=== PATIENT | female | born 1960 | race Two or more races ===

== ENCOUNTER 2025-07-18 08:15 | Inpatient (IN) | payer MEDICARE, MEDICAID, SELFPAY ==
[2025-07-18] VITALS (10 sets, daily range): BP systolic 96–153; BP diastolic 61–83; PULSE 78–127; RESP 16–20; TEMP 36.6–38.7; O2SAT 94–98; BMI 29.2
--- NOTE | 2025-07-18 08:41 | PD.EDRME ---
Rapid Medical Screening Exam E Arrival date/time: 07/18/25 08:15 This is a 65-year-old female that comes into the emergency room with complaints of abdominal pain more so to the right lower quadrant. Patient states abdominal pain has been going on and off for the past 3 months. Patient reports that she has been seen at the clinic. Approximately 2 weeks ago she states she was diagnosed with a UTI and was given antibiotics for this. Patient states that on and off she still continues to have dysuria. Patient denies nausea vomiting diarrhea. Patient does report a fever. I have greeted and performed a focused initial assessment of this patient. Initial appropriate labs ordered at this time. A comprehensive ED assessment and evaluation of the patient and analysis of all test and completion of medical decision making process will be conducted by additional ED provider. Chief Complaint: Abdominal Pain Time Seen by Provider: 07/18/25 08:17 Vital signs: Vital Signs Temperature 99.5 F 07/18/25 08:25 Pulse Rate 110 H 07/18/25 08:25 Respiratory Rate 17 07/18/25 08:25 Blood Pressure 113/73 07/18/25 08:25 Pulse Oximetry (%) 95 07/18/25 08:25 Oxygen Delivery Method Room Air 07/18/25 08:25
[2025-07-18] MEDS: ACETAMINOPHEN 500 MG TABLET 1000 MG PO (08:43)
[2025-07-18 09:07] LABS: Collection Type, Urine Voided
[2025-07-18 09:32] LABS: Albumin, Serum 2.5 gm/dL (3.4-4.8); Albumin/Globulin Ratio 0.8 (1.2-2.2); Alkaline Phosphatase 142 U/L (46-116); Anion Gap 7 (7-16); Aspartate Amino Transferase 16 U/L (0-34); BUN/Creatinine Ratio 12 Ratio (12-20); Bilirubin,Total 0.6 mg/dL (0.3-1.2); Blood Urea Nitrogen 7 mg/dL (9-23); Calcium 7.5 mg/dL (8.3-10.6); Calcium (Corrected) 8.7 mg/dL (8.5-10.1); Carbon Dioxide 25.4 mMol/L (20.0-31.0); Chloride 102 mMol/L (98-107); Creatinine (Component) 0.6 mg/dL (0.6-1.3); Estimated Creatinine Clearance 70.3 mL/min (>60); Globulin 3.3 gm/dL (2.3-3.5); Glucose 103 mg/dL (74-106); Lipase 20 U/L (12-53); Osmolality,Calculated 266 (275-295); Potassium 3.6 mMol/L (3.4-5.1); Sodium 134 mMol/L (136-145); Total Protein 5.8 gm/dL (5.7-8.2); eGFR > 60 See Note
[2025-07-18 09:37] LABS: Basophils # (Auto) 0.1 Thou/mm3 (0.0-0.2); Basophils % (Auto) 1 % (0-2.5); Eosinophils # (Auto) 0.0 Thou/mm3 (0.0-0.5); Eosinophils % (Auto) 0 % (0-10); Hematocrit 30.6 % (36.0-46.0); Hemoglobin 9.9 g/dL (12.0-16.0); Immature Granulocytes Auto 0.25 Thou/mm3 (0.00-0.00); Lymphocytes # (Auto) 2.2 Thou/mm3 (1.0-4.8); Lymphocytes % (Auto) 10 % (10-50); Mean Corpuscular HGB Conc 32.4 g/dl (31.0-37.0); Mean Corpuscular Hemoglobin 27.2 pg (25.0-35.0); Mean Corpuscular Volume 84 fL (80-100); Monocytes # (Auto) 1.8 Thou/mm3 (0.0-0.8); Monocytes % (Auto) 8 % (0-12); Neutrophils # (Auto) 16.9 Thou/mm3 (1.8-7.7); Neutrophils % (Auto) 79 % (37-80); Nucleated Red Blood Cell # 0.00 Thou/mm3 (0.00-0.00); Nucleated Red Blood Cell % 0 /100 WBC (0); Platelet Count 530 Thou/mm3 (140-440); RDW Standard Deviation 50.4 fL (36.4-46.3); Red Blood Count 3.64 Miln/mm3 (4.00-5.20); White Blood Count 21.2 Thou/mm3 (3.6-11.0)
[2025-07-18 09:38] LABS: Alanine Aminotransferase 8 U/L (10-49)
[2025-07-18 10:48] LABS: Bilirubin,Urine Negative (Negative); Blood,Urine Negative (Negative); Color,Urine Yellow (Lt Yel-Yel); Culture Indicated,Urine Contaminated; Glucose, Urine Negative (Negative); Ketones,Urine Negative (Negative); Leukocyte Esterase,Urine Positive (Negative); Nitrite,Urine Negative (Negative); PH,Urine 7.0 (5.0-7.0); Protein,Urine Negative (Neg - Trace); RBC,Urine 5 /hpf (0-3); Specific Gravity,Urine 1.016 (1.001-1.035); Squamous Epithelial Cell,Urine 11 /hpf (0-5); Urobilinogen,Urine Negative mg/dL (0.0-1.0); WBC,Urine 15 /hpf (0-5)
[2025-07-18 11:00] LABS: Clarity,Urine Hazy (Clear/Hazy)
--- NOTE | 2025-07-18 11:02 | XR_ITS ---
Examination: Abdomen sonogram, Limited Date and time of exam: July 18, 2025, 1153 hrs. Indications: Onset right lower abdominal pain today Technique: Real-time smith scale transabdominal sonographic images of the upper abdomen obtained. Findings: Absent gallbladder. Normal common bile duct 0.4 cm. Pancreatic head 2.1 cm Liver 13.8 cm fatty infiltration lobular contour no focal liver lesions. Normal hepatopedal portal venous flow Patent IVC Impression: Absent gallbladder Normal common bile duct Liver normal size no focal liver lesions
--- NOTE | 2025-07-18 11:04 | EKG_ITS ---
[facility] (Formerly [facility]) Test Date: 2025-07-18 Pat Name: WILMAN ALCALA Department: Room: - Gender: Female [employer] Cook: : 1960 Requested By: Karen Gee Order Number: [id number] Reading MD: Karen Gee Measurements Intervals [place] Rate: 80 P: 32 GA: 147 QRS: 33 QRSD: 98 T: 23 QT: 394 QTc: 456 Interpretive Statements SINUS RHYTHM No previous ECG available for comparison /store/S0/[id number]/ecg/[id number].pdf
[2025-07-18] MEDS: cefTRIAXone/D5w 1gm IV premix 1 GM/50 ML BAG IV (11:16)
[2025-07-18 11:24] LABS: Lactate (Lactic Acid) 0.9 mMol/L (0.4-2.0)
--- NOTE | 2025-07-18 11:34 | EDNOTE_ITS ---
ED Abdominal Pain RME/HPI General Chief Complaint: Abdominal Pain Stated complaint: ABD PAIN ON/OFF FOR 2 MONTHS, CONSTANT x 3 DAYS Time seen by provider: 07/18/25 08:17 Arrival date/time: 07/18/25 08:15 Limitations: no limitations RME / HPI RME / HPI narrative: 07/18/25 08:15 This is a 65-year-old female that comes into the emergency room with complaints of abdominal pain more so to the right lower quadrant. Patient states abdominal pain has been going on and off for the past 3 months. Patient reports that she has been seen at the clinic. Approximately 2 weeks ago she states she was diagnosed with a UTI and was given antibiotics for this. Patient states that on and off she still continues to have dysuria. Patient denies nausea vomiting diarrhea. Patient does report a fever. I have greeted and performed a focused initial assessment of this patient. Initial appropriate labs ordered at this time. A comprehensive ED assessment and evaluation of the patient and analysis of all test and completion of medical decision making process will be conducted by additional ED provider. DR. PAOLA OLSEN ED EVALUATION: 65 [id number] presenting with right-sided abdominal pain ongoing for the past three months, which has worsened over the last three days. She reports associated subjective fever and chills but denies vomiting, hematuria, or changes in bowel habits. The patient has a prior section ?1 and is currently awaiting an outpatient endoscopy referral. No other surgeries per the patient. She does not smoke, drink alcohol, or use recreational drugs. A dditionally, she reports a blister on the medial aspect of her left thumb that developed recently. She denies any known medication allergies. Related Data Allergies Allergy/AdvReac Type Severity Reaction Status Date / Time No Known Allergies Allergy Verified 07/18/25 08:18 Review of Systems Review of Systems Systems Reviewed: All systems reviewed, normal except as documented Past Medical History Past Medical History CARDIAC: Positive Hypertension Social History SMOKING STATUS: Never smoker SUBSTANCE USE: does not use ALCOHOL: Never ED Exam General Limitations: Present no limitations General appearance: Present alert Head Head exam: Present atraumatic, normocephalic and normal inspection Eye Eye exam: Present normal appearance, PERRL and EOMI ENT ENT exam: Present normal exam, normal oropharynx and mucous membranes moist Neck Neck exam: Present normal inspection, full ROM and trachea midline Chest Chest inspection: Present normal inspection and symmetric chest wall rise Respiratory Respiratory exam: Present normal lung sounds bilaterally Cardiovascular Cardiovascular exam: Present regular rate, normal rhythm and normal heart sounds Abdominal Exam Abdominal exam: Present soft, tenderness (Right upper quadrant tenderness to palpation) and normal bowel sounds; Absent distention, guarding or rebound Extremities Exam Extremities exam: Present other (Left thumb with a small blister on the medial aspect, no surrounding erythema or drainage.) Back Exam Back exam: Present normal inspection and full ROM Neurological Exam Neurological exam: Present alert and CN II-XII intact Psychiatric Psychiatric exam: Present normal affect and normal mood Skin Skin exam: Present warm, dry, intact and normal color Course Quality Measures none Orders Category Date Time Status CT Screening NOW Care 07/18/25 15:02 Active 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 Care 07/18/25 11:04 Active Continuous Pulse Oximetry STAT Care 07/18/25 11:04 Completed EKG (ED ONLY) *Do not use* NOW Care 07/18/25 11:04 Completed Insert IV NOW Care 07/18/25 11:04 Active NPO STAT Care 07/18/25 11:04 Active Strict Intake and Output Routine Care 07/18/25 11:[address] abdomen pelvis w con Stat Exams 07/18/25 15:02 Ordered EKG (ED Only) Stat Exams 07/18/25 11:04 Draft US abdomen limited Stat Exams 07/18/25 11:02 Completed Blood Culture (Lab) Stat Lab 07/18/25 11:15 Received CBC Stat Lab 07/18/25 08:53 Completed CBC Stat Lab 07/18/25 11:41 Completed Comprehensive Metabolic Panel Stat Lab 07/18/25 08:53 Completed Lactate (Lactic Acid) Stat Lab 07/18/25 11:05 Completed Lipase Stat Lab 07/18/25 08:53 Completed Magnesium Stat Lab 07/18/25 11:05 Completed Partial Thromboplastin Time Stat Lab 07/18/25 11:05 Completed Procalcitonin Stat Lab 07/18/25 11:05 Completed Prothrombin Time with INR Stat Lab 07/18/25 11:05 Completed Troponin I Stat Lab 07/18/25 11:05 Completed Urinalysis, C/S if Indicated Stat Lab 07/18/25 08:46 Completed Acetaminophen Tab [Tylenol ES Tab] Med 07/18/25 08:41 Discontinued 1,000 mg PO X1 ONE Calcium Gluconate 10% Inj Med 07/18/25 17:21 Discontinued 1 gm IV X1 ONE Morphine* Inj Med 07/18/25 16:55 Discontinued 2 mg IVP Q1H STA cefTRIAXone/D5w 1gm IV premix [Rocephin/D5w 1gm IV Med 07/18/25 11:02 Discontinued premix] 1 gm in 50 ml IV STAT Oxygen Delivery NOW RT 07/18/25 11:04 Active Vital Signs Vital signs: Vital Signs Temperature 99.5 F 07/18/25 08:25 Pulse Rate 110 H 07/18/25 08:25 Respiratory Rate 17 07/18/25 08:25 Blood Pressure 113/73 07/18/25 08:25 Pulse Oximetry (%) 95 07/18/25 08:25 Oxygen Delivery Method Room Air 07/18/25 08:25 Abdominal Pain MDM MDM Narrative MDM Narrative:: Patient is a 65-year-old female into the emergency department concerns for right sided abdominal pain. Vital signs and exam as listed. Concern for cholelithiasis, cholecystitis, pancreatitis, urinary tract infection, ACS among others. Ordered labs right upper quadrant ultrasound and EKG. Labs with evidence of leukocytosis 19.4, hemoglobin 9. Patient is at her baseline hemoglobin. No significant acute electrolyte abnormality or metabolic disturbance. Patient does have hypocalcemia will replete in the emergency department. Urinalysis with 51 blood cells 11 squames 5 RBCs leukoesterase positive no bacteria most likely infected. Abdominal ultrasound unremarkable patient does not have a gallbladder. I confirm with the patient she states that in addition to her hysterectomy she has also had a cholecystectomy. Patient without significant elevation in her LFTs. T. bili is normal. I reassessed the patient, patient continues to have abdominal pain however states that now it is in the right lower quadrant. Given persistent pain, ordered CT scan with contrast. At this point my shift and I transition care over to oncoming provider. Patient is pending results of her workup and safe dispo. IMariangel, am scribing for and in the presence of Dr. Smyth. Patient data External records reviewed:: [facility] previous records Clinical information provided by:: patient Social determinants that could affect healthcare access:: none Patient has the following chronic illnesses:: The patient has a prior section ?1 and is currently awaiting an outpatient endoscopy referral. She does not smoke, drink alcohol, or use recreational drugs. How is presenting disease/condition affected by chronic disease/condition?: exacerbated by Evaluation data The following diagnostics were reviewed and interpreted by me:: lab results, rad iology exam(s) and EKG tracing(s) (My interpretation: EKG performed at 1141 hours, sinus rhythm, rate 80, normal intervals, non specific T wave changes, not a cardiac alert) Lab and/or radiology exams considered but not ordered:: none Interpretation Summary: See MDM narrative above. RADIOLOGY Procedure(s): US abdomen limited Accession Number(s): [id number] cc: Han (SCARLETT),Ary WEI; Thuan Busch MD; Karen Smyth MD~ Examination: Abdomen sonogram, Limited Date and time of exam: July 18, 2025, 1153 hrs. Indications: Onset right lower abdominal pain today Technique: Real-time smith scale transabdominal sonographic images of the upper abdomen obtained. Findings: Absent gallbladder. Normal common bile duct 0.4 cm. Pancreatic head 2.1 cm Liver 13.8 cm fatty infiltration lobular contour no focal liver lesions. Normal hepatopedal portal venous flow Patent IVC Impression: Absent gallbladder Normal common bile duct Liver normal size no focal liver lesions Dictated By: Thuan Busch MD Medications / Prescriptions Medications or Prescriptions considered but not ordered:: none Medication administrations:: Medication Administration History Discontinued Medications Acetaminophen (Acetaminophen 500 Mg Tablet) 1,000 mg PO X1 ONE Stop: 07/18/25 08:42 Last Admin: 07/18/25 08:43 Dose: 1,000 mg Documented By: GM Calcium Gluconate (Calcium Gluconate 10% Inj 1 Gm/10 Ml Vial) 1 gm IV X1 ONE Stop: 07/18/25 17:22 Ceftriaxone Sodium/Dextrose (Rocephin/D5w 1gm Iv Premix) 1 gm in 50 mls @ 100 mls/hr IV STAT STA Stop: 07/18/25 11:31 Last Infusion: 07/18/25 12:00 Dose: Infused Documented By: Admin: 07/18/25 11:16 Dose: 100 mls/hr Documented By: GM Morphine Sulfate (Morphine Sulf Inj 4 Mg/Ml Vial) 2 mg IVP Q1H STA Stop: 07/18/25 16:56 Last Admin: 07/18/25 17:09 Dose: 2 mg Documented By: ARELIS see above Consultations Consultation(s) initiated? (list below): No Diagnosis Differential diagnosis abdominal pain: other (Cholecystitis, gastritis/peptic ulcer disease, and hepatic inflammation.) Most likely diagnosis given after review of the tests above:: Abdominal pain Admission Indicated Admission indicated?: not indicated Admission Request Was there a request for admission?: No Disposition Plan Disposition Plan: other (specify) (Signed out to oncoming provider) Discharge Plan Prescriptions/Referrals Referrals: Ary Short FNP ([facility]) [Primary Care Provider] - In 1 week Problem List Clinical Impression: Abdominal pain, Leukocytosis Patient/Caregiver Discharge Instructions Print Language: Bermudian
[2025-07-18 11:47] LABS: INR 1.1 (0.9-1.3); Partial Thromboplastin Time 29.5 Seconds (22.0-36.0); Prothrombin Time 11.9 Seconds (9.0-12.2)
[2025-07-18 11:58] LABS: Magnesium 1.8 mg/dL (1.6-2.6); Procalcitonin 0.20 ng/ml (0.0-0.49); Troponin I < 0.002 ng/mL (0.0-0.045)
[2025-07-18 12:05] LABS: Basophils # (Auto) 0.1 Thou/mm3 (0.0-0.2); Basophils % (Auto) 0 % (0-2.5); Eosinophils # (Auto) 0.0 Thou/mm3 (0.0-0.5); Eosinophils % (Auto) 0 % (0-10); Hematocrit 27.0 % (36.0-46.0); Hemoglobin 9.0 g/dL (12.0-16.0); Immature Granulocytes Auto 0.22 Thou/mm3 (0.00-0.00); Lymphocytes # (Auto) 2.1 Thou/mm3 (1.0-4.8); Lymphocytes % (Auto) 11 % (10-50); Mean Corpuscular HGB Conc 33.3 g/dl (31.0-37.0); Mean Corpuscular Hemoglobin 27.6 pg (25.0-35.0); Mean Corpuscular Volume 83 fL (80-100); Monocytes # (Auto) 1.5 Thou/mm3 (0.0-0.8); Monocytes % (Auto) 8 % (0-12); Neutrophils # (Auto) 15.5 Thou/mm3 (1.8-7.7); Neutrophils % (Auto) 80 % (37-80); Nucleated Red Blood Cell # 0.00 Thou/mm3 (0.00-0.00); Nucleated Red Blood Cell % 0 /100 WBC (0); Platelet Count 422 Thou/mm3 (140-440); RDW Standard Deviation 49.1 fL (36.4-46.3); Red Blood Count 3.26 Miln/mm3 (4.00-5.20); White Blood Count 19.4 Thou/mm3 (3.6-11.0)
--- NOTE | 2025-07-18 15:02 | XR_ITS ---
Examination: CT abdomen with intravenous contrast CT pelvis with intravenous contrast 2-D coronal reconstructions 2-D sagittal reconstructions Date and time of exam:July 18, 2025, 1732 hrs. Indications: Right-sided abdominal pain beginning 3 days ago. CTDI: vol (mGy) 6.96 DLP: (mGycm) 365 Technique: Multiple axial sections of the abdomen and pelvis have been obtained. 64 slice high-resolution scanner used. 3 mm axial sections have been obtained, post intravenous injection 60 cc [id number] 2-D sagittal, coronal reconstructions obtained. Low dose protocols were performed. One or more of the following dose reduction techniques were used; automated exposure control, adjustment of the mA and/or KV according to patient size, use of iterative reconstruction technique. Findings: Atelectasis in the lower lung zones, minimal right pleural disease Pericardial effusion measuring up to 7 mm Liver is mildly irregular in contour with fatty infiltration Absent gallbladder Spleen not enlarged No pancreatic mass Common bile duct 10 mm no definite stones Very large vascular irregular mass in the right abdomen which appears to be arising from the cecum, 11 x 9.5 x 9.2 cm Mildly fluid distended small bowel loops Multiple left lateral periaortic lymph nodes, the largest 10 mm, also small lymph nodes peripheral to the tumor mass Colonic diverticulosis Atrophic uterus There appears to be free fluid in the pelvis Moderate osteopenia with grade 1 anterolisthesis L4 on L5 Impression: Very large vascular mass in the right abdomen which appears to be rising from the cecum, most likely malignant neoplasm of the colon, 11 x 9.5 x 9.2 cm Periaortic lymphadenopathy Lymph nodes peripheral to the large tumor mass Consider PET CT scan follow-up
[2025-07-18] MEDS: MORPHINE SULF INJ 4 MG/ML VIAL 2 MG IVP (17:09)
--- NOTE | 2025-07-18 18:02 | PD.EDADDENDU ---
Emergency Room Addendum <Keena Purvis - Last Filed: 07/18/25 22:33> Addendum Narrative: I took over the care from Dr. Smyth at 6 PM on 07/18/2025, see notes for complete H&P and ED course. I reviewed all diagnostic test results. At this point, diagnoses include Treatment here included Significant improvement Not yet done: I discussed the case with our hospitalist. About the presentation and exam and diagnostics and treatments here. And need of further care in the hospital. Will accept the patient. Not yet done: Based on my best medical judgment, made decision no further evaluation or treatment indicated at this time. Patient understands and agrees to the discharge instructions customized and printed, see below. Óscar Solis MD <Óscar Solis MD - Last Filed: 07/18/25 22:34> Addendum Narrative: I took over the care from Dr. Smyth at 6 PM on 07/18/2025, see notes for complete H&P and ED course. I reviewed all diagnostic test results. My interpretation of CXR is no acute findings. My review of abdominal US report is no acute findings. My review of abdominal CT report is 11 cm cecum mass. Urine and blood tests remarkable for WBC 19.4 and albumin 2.5. At this point, diagnoses include: Cecum mass with intractable pain I discussed the case with our surgeon and our hospitalist. About the presentation and exam and diagnostics and treatments here. And need of further care in the hospital. Will accept the patient. Óscar Solis MD
[2025-07-18] MEDS: CALCIUM GLUCONATE 10% INJ 1 GM/10 ML VIAL IV (19:38)
[2025-07-18] MEDS: RINGERS LACTATED 1000 ML 1,000 ML 999 ML IV (19:39)
--- NOTE | 2025-07-18 19:43 | XR_ITS ---
Examination: AP chest single view Technique one AP portable upright chest single view Date and time: July 18, 2025 1948 hrs. Indications: Chest pain shortness of breath today. Findings: Atelectasis and/or early pneumonia right base Normal heart size Reduced inspiratory effort Prominent osteopenia Impression: Atelectasis and/or early pneumonia right base, the appearance should be clinically correlated
[2025-07-18] MEDS: MORPHINE SULF INJ 4 MG/ML VIAL IV (20:32)
--- NOTE | 2025-07-18 22:22 | PD.RESHP ---
Documentation for date of: 07/18/25 HPI History of Present Illness History of present illness: ED course: PMHx: Allergies: Home meds: SgHx: SHx: FHx: Exam Vital Signs Temp Pulse Resp BP Pulse Ox O2 Del Method 100.1 F 127 H 20 153/83 H 94 L Room Air 07/18/25 17:55 07/18/25 17:55 07/18/25 17:55 07/18/25 17:55 07/18/25 17:55 07/18/25 17:55 Results: Labs 07/18/25 11:41 07/18/25 08:53 Labs: Short CBC 07/18/25 07/18/25 Range/Units 08:53 11:41 WBC 21.2 H 19.4 H (3.6-11.0) Thou/mm3 Hgb 9.9 L 9.0 L (12.0-16.0) g/dL Hct 30.6 L 27.0 L (36.0-46.0) % Plt Count 530 H 422 D (140-440) Thou/mm3 BMP 07/18/25 08:53 Sodium 134 L Potassium 3.6 Chloride 102 Carbon Dioxide 25.4 BUN 7 L Creatinine 0.6 Glucose 103 Calcium 7.5 L Cardiac Enzymes 07/18/25 Range/Units 11:05 Troponin I < 0.002 (0.0-0.045) ng/mL Liver Function 07/18/25 Range/Units 08:53 Total Bilirubin 0.6 (0.3-1.2) mg/dL AST 16 (0-34) U/L ALT 8 L (10-49) U/L Alkaline Phosphatase 142 H (46-116) U/L Albumin 2.5 L (3.4-4.8) gm/dL Urine 07/18/25 Range/Units 08:46 Urine Color Yellow (Lt Yel-Yel) Urine Clarity Hazy (Clear/Hazy) Urine pH 7.0 (5.0-7.0) Ur Specific [place] 1.016 (1.001-1.035) Urine Protein Negative (Neg - Trace) Urine Glucose (UA) Negative (Negative) Quality Measures Quality Measures none Medications Home Medications and Allergies Allergies Allergy/AdvReac Type Severity Reaction Status Date / Time No Known Allergies Allergy Verified 07/18/25 08:18 Visit Medications Discontinued Medications Acetaminophen (Acetaminophen 500 Mg Tablet) 1,000 mg PO X1 ONE Stop: 07/18/25 08:42 Last Admin: 07/18/25 08:43 Dose: 1,000 mg Calcium Gluconate (Calcium Gluconate 10% Inj 1 Gm/10 Ml Vial) 1 gm IV X1 ONE Stop: 07/18/25 17:22 Last Admin: 07/18/25 19:38 Dose: 1 gm Ceftriaxone Sodium/Dextrose (Rocephin/D5w 1gm Iv Premix) 1 gm in 50 mls @ 100 mls/hr IV STAT STA Stop: 07/18/25 11:31 Last Infusion: 07/18/25 12:00 Dose: Infused Lactated Ringer's (Lactated Ringers) 1,000 mls @ 999 mls/hr IV .Q1H1M ONE Stop: 07/18/25 18:26 Last Infusion: 07/18/25 21:34 Dose: Infused Morphine Sulfate (Morphine Sulf Inj 4 Mg/Ml Vial) 2 mg IVP Q1H STA Stop: 07/18/25 16:56 Last Admin: 07/18/25 17:09 Dose: 2 mg Morphine Sulfate (Morphine Sulf Inj 4 Mg/Ml Vial) 4 mg IV X1 ONE Stop: 07/18/25 19:42 Last Admin: 07/18/25 20:32 Dose: 4 mg
--- NOTE | 2025-07-18 22:42 | PD.RESHP ---
Documentation for date of: 07/18/25 HPI History of Present Illness Chief complaint: abdominal Pain History of present illness: This is a 65 year old female with Past Medical History of Pre Diabetes presented to the ED with abdominal pain. She has been experiencing vague abdominal pain on and off in nature since February 2025 and got worsened since yesterday accompanied with fevers and chills.She endorses 20 pound weight loss since february 2025. She has been experiencing on and off bloating and constipation for 5 months. She denies any Nausea,vomiting ,Melena, Hematemesis. ED consulted general surgery for possible surgical intervention and recommended admission. ED Course: Was admitted for abdominal pain. Vitals : BP:113/73 mm Hg , SC:110bpm , Resp:17 ,Temp:99.5 F , saturating 95% on room air. Pertinent Labs are WBC :19.4, Hb:9 , HCt:27 , Sodium:134, Potassium :3.6 , AlP:142, Alt:8, Albumin:2.5, Imaging -CT abdomen shows very large Vascular mass appears to be arising from cecum measuring 11 x 9.5 x 9.2 cm.- malignant neoplasm of cecum. Given 1litre bolus of Morphine,Normal saline. Past Medical History:Pre Diabetes .Anemia and got blood transfused at the beginning of this year , Treated for UTI 2 weeks back. Past surgical History: Cholecystecomy and 1 . Family History: Diverticulosis and Diverticulitis. Social History: Occasional Drinker. No Smoking or any other drug usage. ROS: As stated above. Review of Systems Review of Systems Systems Reviewed: All systems reviewed, normal except as documented Exam Vital Signs Temp Pulse Resp BP Pulse Ox O2 Del Method 100.1 F 127 H 20 153/83 H 94 L Room Air 07/18/25 17:55 07/18/25 17:55 07/18/25 17:55 07/18/25 17:55 07/18/25 17:55 07/18/25 17:55 Narrative Exam Physical Exam GENERAL: NAD, AAOx3 HEENT: Moist mucosa. Eyes open, symmetrical, & clear CARDIO: Heart RRR, no obvious murmurs PULM: No noted coughing/dyspnea CTA B/L, no R/W/R GI: Abdomen soft, nondistended and ovoid shaped mass located in RLQ. Tenderness present on palpating RLQ and suprapubic region SKIN/MSK/EXT: No wounds/rashes/edema/amputations, no pain on palpation. Pedal pulses present B/L NEURO: AAOx3, no focal neuro deficits, able to move all 4 extremities Results: Labs 07/18/25 11:41 07/18/25 08:53 Labs: Short CBC 07/18/25 07/18/25 Range/Units 08:53 11:41 WBC 21.2 H 19.4 H (3.6-11.0) Thou/mm3 Hgb 9.9 L 9.0 L (12.0-16.0) g/dL Hct 30.6 L 27.0 L (36.0-46.0) % Plt Count 530 H 422 D (140-440) Thou/mm3 BMP 07/18/25 08:53 Sodium 134 L Potassium 3.6 Chloride 102 Carbon Dioxide 25.4 BUN 7 L Creatinine 0.6 Glucose 103 Calcium 7.5 L Cardiac Enzymes 07/18/25 Range/Units 11:05 Troponin I < 0.002 (0.0-0.045) ng/mL Liver Function 07/18/25 Range/Units 08:53 Total Bilirubin 0.6 (0.3-1.2) mg/dL AST 16 (0-34) U/L ALT 8 L (10-49) U/L Alkaline Phosphatase 142 H (46-116) U/L Albumin 2.5 L (3.4-4.8) gm/dL Urine 07/18/25 Range/Units 08:46 Urine Color Yellow (Lt Yel-Yel) Urine Clarity Hazy (Clear/Hazy) Urine pH 7.0 (5.0-7.0) Ur Specific [place] 1.016 (1.001-1.035) Urine Protein Negative (Neg - Trace) Urine Glucose (UA) Negative (Negative) Quality Measures Quality Measures none Advance care planning discussed with:: patient Medications Home Medications and Allergies Home Medications ?Medication ?Instructions ?Recorded ?Confirmed ?Type No Known Home Medications 07/19/25 07/19/25 History Allergies Allergy/AdvReac Type Severity Reaction Status Date / Time No Known Allergies Allergy Verified 07/18/25 08:18 Visit Medications Discontinued Medications Acetaminophen (Acetaminophen 500 Mg Tablet) 1,000 mg PO X1 ONE Stop: 07/18/25 08:42 Last Admin: 07/18/25 08:43 Dose: 1,000 mg Calcium Gluconate (Calcium Gluconate 10% Inj 1 Gm/10 Ml Vial) 1 gm IV X1 ONE Stop: 07/18/25 17:22 Last Admin: 07/18/25 19:38 Dose: 1 gm Ceftriaxone Sodium/Dextrose (Rocephin/D5w 1gm Iv Premix) 1 gm in 50 mls @ 100 mls/hr IV STAT STA Stop: 07/18/25 11:31 Last Infusion: 07/18/25 12:00 Dose: Infused Lactated Ringer's (Lactated Ringers) 1,000 mls @ 999 mls/hr IV .Q1H1M ONE Stop: 07/18/25 18:26 Last Infusion: 07/18/25 21:34 Dose: Infused Morphine Sulfate (Morphine Sulf Inj 4 Mg/Ml Vial) 2 mg IVP Q1H STA Stop: 07/18/25 16:56 Last Admin: 07/18/25 17:09 Dose: 2 mg Morphine Sulfate (Morphine Sulf Inj 4 Mg/Ml Vial) 4 mg IV X1 ONE Stop: 07/18/25 19:42 Last Admin: 07/18/25 20:32 Dose: 4 mg Assessment & Plan Plan Patient presented with worsening of abdominal pain since yesterday ,CT Scan shows Cecal Mass. Admitted for further Colonoscopy. #Cecal Mass: #Leukocytosis Patient presented with worsening abdominal pain since yesterday and CT scan shows mass appears to be arising from the cecum. General surgery recommended admission for possible exploratory laparotomy, and will do colonoscopy in the evening. Patient has no symptoms/ signs of active infection, defer starting Abx therapy at this time as leukocytosis likely reactive to pain/ acute illness - CLD for tonight - Scheduled Colonoscopy with tomorrow evening. - Bowel preparation starting on 07/19 - NS 1L Bolus and NS Maintainence dose. - General surgery consulted, appreciate reccs #UTI Patient met some SIRS criteria leukocytosis, tachycardia, fever of 101 initial UA was contaminated on repeat found to have evidence of UTI - on Ceftriaxone - F/u cultures #Pericardial effusion possibly malignant in setting of large mass in the cecum/ colon 7mm incidental finding on CT scan No complaints of chest pain, shortness of breath at this time - can consider ordering Echo #Normocytic Anemia likely secondary to cecal mass - iron panel ordered - peripheral blood smear and ferritin - follow up CBCs #Elevated BP On admission BP noted to be 160/85 Patient has no prior history of hypertension. Continue to monitor. Follow-up outpatient with PCP for possible antihypertensive medication initiation Disposition: Medsurg Fluids: NS Feeding: CLD Thrombo prophylaxis: Heparin Gastric Ulcer prophylaxis: None CODE STATUS: Full code Case discussed with my senior Dr. Delong PGY-[address] Catie Lara MD PGY-1 Attending Provider Attestation/Addendum After examination of the patient and review of the clinical data I feel that this patient needs admission to the hospital for further treatment/evaluation. Plan of care discussed with patient and is in agreement. I Paramjit Haddad MD, attest that I was physically present for [place] portions of evaluation, and examined patient, labs and imagings and plan of care were discussed with IM residents team, and I agree with the findings and plans documented above.
[2025-07-18] MEDS: SODIUM CHLORIDE 0.9% 1000 ML 1,000 ML 999 ML IV (22:59)
[2025-07-18] MEDS: SODIUM CHLORIDE 0.9% 1000 ML 1,000 ML 75 ML IV (22:59)
[2025-07-18] MEDS: ACETAMINOPHEN 325 MG TABLET 650 MG PO (23:24)
--- NOTE | 2025-07-18 23:31 | PC.NURSE ---
SPOKE TO RESIDENT MAGGIE ARNDT ABOUT IF SHE WANTS TO CALL SEPSIS ALERT ON PT. DR. ARNDT SAID IT WAS NOT NECESSARY TO CALL SEPSIS ALERT SINCE EVERYTHING WAS DONE
[2025-07-19] VITALS (10 sets, daily range): BP systolic 109–139; BP diastolic 61–91; PULSE 75–123; RESP 15–18; TEMP 36.1–38; O2SAT 92–100; BMI 30.9
[2025-07-19 02:44] LABS: Collection Type, Urine Clean Catch
[2025-07-19 03:05] LABS: Bacteria,Urine Rare; Bilirubin,Urine Negative (Negative); Blood,Urine Negative (Negative); Clarity,Urine Clear (Clear/Hazy); Color,Urine Yellow (Lt Yel-Yel); Glucose, Urine Negative (Negative); Ketones,Urine 1+ (Negative); Leukocyte Esterase,Urine Positive (Negative); Nitrite,Urine Negative (Negative); PH,Urine 6.0 (5.0-7.0); Protein,Urine Trace (Neg - Trace); RBC,Urine < 1 /hpf (0-3); Specific Gravity,Urine 1.049 (1.001-1.035); Squamous Epithelial Cell,Urine 8 /hpf (0-5); Urobilinogen,Urine Negative mg/dL (0.0-1.0); WBC,Urine 66 /hpf (0-5)
[2025-07-19] MEDS: cefTRIAXone/D5w 1gm IV premix 1 GM/50 ML BAG IV ×2 (05:22→08:15)
[2025-07-19 05:34] LABS: Basophils # (Auto) 0.1 Thou/mm3 (0.0-0.2); Basophils % (Auto) 0 % (0-2.5); Eosinophils # (Auto) 0.0 Thou/mm3 (0.0-0.5); Eosinophils % (Auto) 0 % (0-10); Hematocrit 27.1 % (36.0-46.0); Immature Granulocytes Auto 0.28 Thou/mm3 (0.00-0.00); Lymphocytes # (Auto) 2.2 Thou/mm3 (1.0-4.8); Lymphocytes % (Auto) 9 % (10-50); Mean Corpuscular HGB Conc 31.7 g/dl (31.0-37.0); Mean Corpuscular Hemoglobin 27.0 pg (25.0-35.0); Mean Corpuscular Volume 85 fL (80-100); Monocytes # (Auto) 1.2 Thou/mm3 (0.0-0.8); Monocytes % (Auto) 5 % (0-12); Neutrophils # (Auto) 21.1 Thou/mm3 (1.8-7.7); Neutrophils % (Auto) 85 % (37-80); Nucleated Red Blood Cell # 0.00 Thou/mm3 (0.00-0.00); Nucleated Red Blood Cell % 0 /100 WBC (0); Platelet Count 469 Thou/mm3 (140-440); RDW Standard Deviation 52.8 fL (36.4-46.3); Red Blood Count 3.18 Miln/mm3 (4.00-5.20); White Blood Count 24.9 Thou/mm3 (3.6-11.0)
[2025-07-19 06:08] LABS: Hemoglobin 8.6 g/dL (12.0-16.0)
[2025-07-19 06:11] LABS: Ferritin 123 ng/mL (7.3-270.7); Iron 5 mcg/dL (50-170); Percent Iron Saturation 3 % (20-55); Total Iron Binding Capacity 135 mcg/dL (250-425); Unsaturated Iron Binding 130 (225-295)
[2025-07-19 06:24] LABS: Alanine Aminotransferase 7 U/L (10-49); Albumin, Serum 2.0 gm/dL (3.4-4.8); Albumin/Globulin Ratio 0.7 (1.2-2.2); Alkaline Phosphatase 125 U/L (46-116); Anion Gap 9 (7-16); Aspartate Amino Transferase 16 U/L (0-34); BUN/Creatinine Ratio 16 Ratio (12-20); Bilirubin,Total 0.5 mg/dL (0.3-1.2); Blood Urea Nitrogen 8 mg/dL (9-23); Calcium 7.4 mg/dL (8.3-10.6); Calcium (Corrected) 9.0 mg/dL (8.5-10.1); Carbon Dioxide 22.0 mMol/L (20.0-31.0); Chloride 108 mMol/L (98-107); Creatinine (Component) 0.5 mg/dL (0.6-1.3); Estimated Creatinine Clearance 87.0 mL/min (>60); Globulin 2.8 gm/dL (2.3-3.5); Glucose 72 mg/dL (74-106); Magnesium 1.8 mg/dL (1.6-2.6); Osmolality,Calculated 274 (275-295); Phosphorous 3.7 mg/dL (2.4-5.1); Potassium 3.3 mMol/L (3.4-5.1); Sodium 139 mMol/L (136-145); Total Protein 4.8 gm/dL (5.7-8.2); eGFR > 60 See Note
[2025-07-19] MEDS: NA SU/NAHCO3/KC/PEG (Golytely) 4,000 ML BTL 4000 ML PO (08:15)
[2025-07-19] MEDS: POTASSIUM CHL 10 mEq IVPB 10 MEQ/100 ML BAG 100 MEQ IV ×2 (09:16→10:20)
--- NOTE | 2025-07-19 09:28 | ESPR_ITS ---
<Statement entered by Roney Ugalde MD - 07/19/25 16:40> Patient was seen and evaluated at bedside this morning. No acute overnight events. Patient initially came in with a fever for started Flagyl increased patient is Rocephin to 2 g daily. GI was consulted for need of colonoscopy and patient was started on bowel prep. Cecal mass likely malignancy, will wait for colonoscopy and surgery recs. Patient noted to have a small pericardial effusion on CT, but asymptomatic at this time. Otherwise patient has no other complaints at this time. I have reviewed the note and agree with the medical student's assessment & plan with exceptions as below. I have personally reviewed labs, imaging, home meds/prior records, examined the patient, formulated and discussed management plan with my attending Case disclosed with attending Dr. Quincy Ugalde PGY2 Disclaimer: Even though this this note was dictated by speech recognition and even though it was carefully revised there may still be minor errors in television inspector due to voice recognition software. General: A/O x3, no acute distress, thin Eyes: PERRL, EOMI. Anicteric, vision grossly intact. Ears: No ear pain, no ear discharge, Hearing grossly intact. Nose: No nasal discharge. Mouth/Throat: Moist mucous membranes, no redness, no lesions. Neck: Neck supple, non-tender, no cervical lymphadenopathy. Lungs: Clear YADY to auscultation and percussion, No accessory muscle use. Cardio: Normal S1/S2, regular rhythm, no murmurs, no JVD or carotid bruits. Abdomen: Soft, mildly tender in the RLQ, no palpable masses, peristalsis present, no guarding or rebound. Extremities: Symmetrical, no significant deformities, no peripheral edema , non-tender, peripheral pulses presents. Skin: No rashes, no lesions, warm to touch. Neuro: No focal neurological deficits. motor and sensory intact. Psych: Cooperative, appropriate mood and effect. Documentation for date of: 07/19/25 Subjective Subjective Interval history: Overnight, pt was febrile up to 101.6 which began ~1755 and resolved by midnight following tylenol administration, otherwise no acute events. Telemetry showed sinus to sinus tachycardia up to 120s HR overnight. This morning she reports abdominal pain RLQ 8/10 sharp, as well as frequency, urgency, and dysuria. Denies chills, n/v/d, chest pain, SOB, palpitations, melena, hematemesis. Notably despite lack of respiratory symptoms she began saturating low at 92% on room air beginning ~0200 overnight. The patient began bowel regimen this morning for planned colonoscopy, currently NPO. Exam Vital Signs Temp Pulse Resp BP Pulse Ox O2 Del Method 97.9 F 75 17 122/71 92 L Room Air 07/19/25 08:00 07/19/25 08:00 07/19/25 08:00 07/19/25 08:00 07/19/25 08:00 07/19/25 08:00 Narrative Exam General: AOx3, no acute distress, able to speak full sentences HEENT: NC/AT, mucous membranes moist, bilateral sclera anicteric Cardiovascular: regular rate and rhythm, S1/S2 present, no murmurs appreciated Pulmonary: clear to auscultation bilaterally, no rales/rhonchi/wheezes. Notably poor inspiratory effort. Abdominal: non-distended, no rebound/guarding, normal bowel sounds present. O void mass located in RLQ. Tenderness present on palpating RLQ and suprapubic region Musculoskeletal: normal ROM Skin: warm and dry, intact, no rashes Neuro: CN II-XII intact, no focal deficits Objective Labs 07/19/25 04:50 07/19/25 04:50 Labs: Laboratory Results - last 24 hr 07/18/25 07/18/25 07/18/25 08:46 08:53 11:05 WBC 21.2 H RBC 3.64 L Hgb 9.9 L Hct 30.6 L MCV 84 MCH 27.2 MCHC 32.4 RDW Std Deviation 50.4 H Plt Count 530 H Neut % (Auto) 79 Lymph % (Auto) 10 [place] % (Auto) 8 Eos % (Auto) 0 Baso % (Auto) 1 Neut # (Auto) 16.9 H Lymph # (Auto) 2.2 Darke # (Auto) 1.8 H Eos # (Auto) 0.0 Baso # (Auto) 0.1 Immature Gran # (Auto) 0.25 H Absolute Nucleated RBC 0.00 Immature Gran % 1 H Nucleated RBC % 0 PT 11.9 INR 1.1 APTT 29.5 Sodium 134 L Potassium 3.6 Chloride 102 Carbon Dioxide 25.4 Anion Gap 7 BUN 7 L Creatinine 0.6 Estim Creat Clear Calc 70.3 eGFR > 60 BUN/Creatinine Ratio 12 Glucose 103 Calculated Osmolality 266 L Lactic Acid 0.9 Calcium 7.5 L Corrected Calcium 8.7 Phosphorus Magnesium 1.8 Iron TIBC Iron Saturation Unsat Iron Binding Ferritin Total Bilirubin 0.6 AST 16 ALT 8 L Alkaline Phosphatase 142 H Troponin I < 0.002 Total Protein 5.8 Albumin 2.5 L Globulin 3.3 Albumin/Globulin Ratio 0.8 L Lipase 20 Procalcitonin 0.20 Ur Collection Type Voided Urine Color Yellow Urine Clarity Hazy Urine pH 7.0 Ur Specific [place] 1.016 Urine Protein Negative Urine Glucose (UA) Negative Urine Ketones Negative Urine Blood Negative Urine Nitrite Negative Urine Bilirubin Negative Urine Urobilinogen (Auto) Negative Ur Leukocyte Esterase Positive Urine RBC 5 H Urine WBC 15 H Ur Squamous Epith Cells 11 H Urine Bacteria None Ur Culture Indicated? Contaminated Blood Type Antibody Screen Blood Bank Wristband ID 07/18/25 07/18/25 07/19/25 11:41 23:00 02:19 WBC 19.4 H RBC 3.26 L Hgb 9.0 L Hct 27.0 L MCV 83 MCH 27.6 MCHC 33.3 RDW Std Deviation 49.1 H Plt Count 422 D Neut % (Auto) 80 Lymph % (Auto) 11 [place] % (Auto) 8 Eos % (Auto) 0 Baso % (Auto) 0 Neut # (Auto) 15.5 H Lymph # (Auto) 2.1 Darke # (Auto) 1.5 H Eos # (Auto) 0.0 Baso # (Auto) 0.1 Immature Gran # (Auto) 0.22 H Absolute Nucleated RBC 0.00 Immature Gran % 1 H Nucleated RBC % 0 PT INR APTT Sodium Potassium Chloride Carbon Dioxide Anion Gap BUN Creatinine Estim Creat Clear Calc eGFR BUN/Creatinine Ratio Glucose Calculated Osmolality Lactic Acid Calcium Corrected Calcium Phosphorus Magnesium Iron TIBC Iron Saturation Unsat Iron Binding Ferritin Total Bilirubin AST ALT Alkaline Phosphatase Troponin I Total Protein Albumin Globulin Albumin/Globulin Ratio Lipase Procalcitonin Ur Collection Type Clean Catch Urine Color Yellow Urine Clarity Clear Urine pH 6.0 Ur Specific [place] 1.049 H Urine Protein Trace Urine Glucose (UA) Negative Urine Ketones 1+ A Urine Blood Negative Urine Nitrite Negative Urine Bilirubin Negative Urine Urobilinogen (Auto) Negative Ur Leukocyte Esterase Positive Urine RBC < 1 Urine WBC 66 H Ur Squamous Epith Cells 8 H Urine Bacteria Rare Ur Culture Indicated? Blood Type O Positive Antibody Screen NEGATIVE Blood Bank Wristband ID Yes 07/19/25 04:50 WBC 24.9 H D RBC 3.18 L Hgb 8.6 L Hct 27.1 L MCV 85 MCH 27.0 MCHC 31.7 RDW Std Deviation 52.8 H Plt Count 469 H D Neut % (Auto) 85 H Lymph % (Auto) 9 L [place] % (Auto) 5 Eos % (Auto) 0 Baso % (Auto) 0 Neut # (Auto) 21.1 H Lymph # (Auto) 2.2 Darke # (Auto) 1.2 H Eos # (Auto) 0.0 Baso # (Auto) 0.1 Immature Gran # (Auto) 0.28 H Absolute Nucleated RBC 0.00 Immature Gran % 1 H Nucleated RBC % 0 PT INR APTT Sodium 139 Potassium 3.3 L Chloride 108 H Carbon Dioxide 22.0 Anion Gap 9 BUN 8 L Creatinine 0.5 L Estim Creat Clear Calc 87.0 eGFR > 60 BUN/Creatinine Ratio 16 Glucose 72 L Calculated Osmolality 274 L Lactic Acid Calcium 7.4 L Corrected Calcium 9.0 Phosphorus 3.7 Magnesium 1.8 Iron 5 L TIBC 135 L Iron Saturation 3 L Unsat Iron Binding 130 L Ferritin 123 Total Bilirubin 0.5 AST 16 ALT 7 L Alkaline Phosphatase 125 H Troponin I Total Protein 4.8 L Albumin 2.0 L D Globulin 2.8 Albumin/Globulin Ratio 0.7 L Lipase Procalcitonin Ur Collection Type Urine Color Urine Clarity Urine pH Ur Specific [place] Urine Protein Urine Glucose (UA) Urine Ketones Urine Blood Urine Nitrite Urine Bilirubin Urine Urobilinogen (Auto) Ur Leukocyte Esterase Urine RBC Urine WBC Ur Squamous Epith Cells Urine Bacteria Ur Culture Indicated? Blood Type Antibody Screen Blood Bank Wristband ID Quality Measures Quality Measures none Advance care planning discussed with:: patient Assessment & Plan Assessment Current Active Medications: Generic Name Dose Route Start Last Admin Trade Name Freq PRN Reason Stop Dose Admin Acetaminophen 650 mg 07/18/25 22:29 07/18/25 23:24 Acetaminophen 325 Mg Tablet PO 08/17/25 22:28 650 mg Q6H PRN Administration Fever >100.4 Acetaminophen 650 mg 07/18/25 22:34 Acetaminophen 325 Mg Tablet PO 08/17/25 22:33 Q6H PRN PAIN SCALE 1-3 (mild Sodium Chloride 1,000 mls @ 75 mls/hr 07/18/25 22:30 07/18/25 22:59 Ns IV 08/17/25 22:29 75 mls/hr .[id number] SHAWNA Administration Ceftriaxone Sodium/Dextrose 1 gm in 50 mls @ 100 mls/hr 07/19/25 05:09 07/19/25 08:15 Rocephin/D5w 1gm Iv Premix IV 07/26/25 05:08 100 mls/hr QDAY SHAWNA Administration Potassium Chloride 10 meq in 100 mls @ 100 mls/hr 07/19/25 08:07 07/19/25 09:16 Kcl Ivpb IV 07/19/25 10:06 100 mls/hr Q1H SHAWNA Administration Morphine Sulfate 2 mg 07/18/25 22:34 Morphine Sulf Inj 4 Mg/Ml Vial IVP 07/23/25 22:33 Q4HR PRN PAIN SCALE 7-10 (Severe Ondansetron HCl 4 mg 07/18/25 22:29 Ondansetron Inj 2 Mg/Ml Inj 2 Ml IVP 08/17/25 22:28 Q6H PRN NAUSEA OR VOMITING Protocol Plan 65 yo F w/ PMH prediabetes, anemia presented with worsening of abdominal pain since yesterday, CT Scan shows Cecal Mass. Admitted for further Colonoscopy. #Cecal Mass unknown etiology #Leukocytosis Patient presented with worsening abdominal pain since day before admit. WBCs today 24.9, up from 19.[address] Abdomen in ED showed mass appearing to rise from the cecum. General surgery recommended admission for possible exploratory laparotomy, plan for colonoscopy first today. - GenSurg consulted Dr. Suggs, appreciate recs. Also GI Dr. Mc consulted, appreciate recs, plan as below. - Currently NPO, initiated Golytely/bowel regimen this morning 0900. Will start clear liquid diet. Colonoscopy following bowel regimen. - S/p NS 1L Bolus, currently on NS Maintenance dose. - Acetaminophen/Zofran for symptomatic relief - Increased IV Ceftriaxone to 2g - Started IV Flagyl #UTI #SIRS Patient met SIRS criteria leukocytosis, tachycardia, fever of 101 on day of admit however lactic acid was normal. Repeat UA showed evidence of UTI, additionally patient reports dysuria/frequency/urgency this AM. - FU cultures - Abx as above #Pericardial effusion Per CT ab/pelv in ED, 7mm effusion present. Possibly malignant in setting of large mass in the cecum/ colon. However pt is asymptomatic at this time, denies Chest pain, SOB, palpitations. - Consider Echo, however not currently indicated #Normocytic Anemia Acute on chronic, at this time most likely 2/2 cecal mass/possible malignancy. Iron panel today showed low Iron 5, TIBC 135, Iron Sat 3, Ferritin however normal at 135. Most likely mixed picture in setting of chronic disease with additional complication of volume loss in setting of malignancy. Pt however has no signs/sx of active bleed. - Follow CBCs in AM #Elevated BP (resolved) On admission BP noted to be 160/85, however pt has no HTN history and BP has been normal for the rest of this admit. - Monitor - FU outpt PCP Hospital management: Disposition: Pending colonoscopy and further workup per GenSurg for possible cecal malignancy Fluids: normal saline 75ml/hr Diet: NPO Lines: peripheral IV DVT prophylaxis: SCDs CODE STATUS: full code ----- Plan discussed with attending physician Dr. Quincy Neely, Medical Student OMS[employer] Attending Provider Attestation/Addendum I have examined the patient, reviewed labs and imaging findings, discussed the case with the resident(s), and reviewed entered orders. I agree with the plan of care as outlined in this note, with these additional summaries/recommendations: Patient seen at bedside. Patient was admitted overnight for intractable abdominal pain and found to have a mass in the cecum. CT of abdomen and pelvis showed very large vascular mass in the right abdomen which appears to be arising from the cecum which most likely represents malignant neoplasm of the colon, 11 X9.5X 9.2 cm with periaortic lymphadenopathy and lymph nodes peripheral to the large tumor mass suggesting possible malignancy. General surgery and gastroenterology both consulted. Patient currently undergoing GoLytely and will go for colonoscopy once cleared. Clear liquid diet okay for now. Continue pain management. Patient was also found to be febrile with significant leukocytosis. Urinalysis suggestive of urinary tract infection. Blood and urine cultures taken, follow-up results when available. Continue IV antibiotic. Patient updated on the plan and in agreement. All questions answered to satisfaction. Please see residents note for additional details and management. Dr. Quincy MD
--- NOTE | 2025-07-19 10:27 | PC.SS ---
Carla Washington is a 65-year-old female admitted to [facility] for ABD pain. SS conducted bedside contact with the patient to complete initial assessment and to discuss discharge planning. Role and reason explained. Patient confirmed demographic information. Patient identifies son Dionisio Samuel [phone] as her surrogate decision maker. Pt states she is able to complete all ADL?s independently. No need for any source of DME. Pts PCP is Dr. Ary Short (last visit 2 weeks ago). Pharmacy of choice is [facility]. Discharge options discussed and the pt wishes to return home.? Family will provide transportation upon DC. No further intervention required at this time, forensic social worker would be available to address any further concerns. DC Plan: Home Contact: Dionisio Ho Address: Confirmed on face sheet PCP: [facility]
[2025-07-19] MEDS: MORPHINE SULF INJ 4 MG/ML VIAL 2 MG IVP ×2 (11:33→19:32)
--- NOTE | 2025-07-19 12:01 | ESCONSULT_ITS ---
HPI Data of Consult Requesting Physician: Paramjit Haddad MD Admitting Provider: Paramjit Haddad MD Attending Provider: Paramjit Haddad MD Primary Care Provider: ERIBERTO Martinez([facility]) Consult Narrative Reason for consult: Cecal mass on CT scan History of present illness: HPI: 65-year-old female patient with past medical history of diabetes mellitus came to the ED due to worsening abdominal pain since February 2025. Patient reported that since February she started to have abdominal discomfort and mild pain. She reported that the symptoms associated with abdominal bloating and irregular bowel movements. The symptoms improved with laxatives and painkillers such as ibuprofen and Tylenol. Her symptoms continue to worsen over the past 2 months and on July 18, 2025 she started to experience severe abdominal pain 10 out of 10 located at the right lower quadrant associated with chills malaise and constipation. Patient denied any nausea or vomiting, denied any blood per rectum or melena. However she reported significant weight loss for the past 6 months unintentionally. Patient also reported some dysuria which was initially treated with antibiotics by her PCP and resolved her symptoms. Patient denied any hematuria, and history of kidney stones. Patient reported that she took Tylenol which improved her she reported that she was seen by her PCP in which she was prescribed some laxatives and she was scheduled for colonoscopy however due to insurance issues she has been experiencing delay in the colonoscopy. Hospital course: In the ED patient was found to have blood temperature of 99.5, respiratory rate of 110, blood pressure 113/73, her WBC initially was 90.4 however it obtained with the to 24.2, hemoglobin 8.9, potassium 3.6, albumin 2.5, urine analysis showed positive WBC of 46, CT scan of the abdomen showed large vascular mass appears to be arising from the cecum measuring 11 x 9.5 x 9.2 cm with neurological picture of possible malignancy. General surgery was consulted he recommended to admit the patient for possible exploratory laparotomy. However he recommended to start with colonoscopy first for the reason GI services were requested. Of note, CT scan also showed mild pericardial effusion. Overnight patient developed a spike of fever to 101.6 which resolved with Tylenol and hydration. PMH: Diabetes mellitus PSX: Denied any previous surgery PFX: Mother due to leukemia, mother with hypertension and diabetes mellitus Social hx: Alcohol: Socially Tobacco: Denied Illicit drugs: Denied Allergies: No known allergy cc:: cc: Paramjit Haddad MD Exam Vital Signs Temp Pulse Resp BP Pulse Ox O2 Del Method 97.9 F 75 17 122/71 92 L Room Air 07/19/25 08:00 07/19/25 08:00 07/19/25 08:00 07/19/25 08:00 07/19/25 08:00 07/19/25 08:00 Narrative Exam GEN: AOx3, able to speak full sentences HEENT: NC/AC, PERRLA, oral mucosa moist, neck supple CVS: RRR, S1-S2 present, no murmurs appreciated RESP: CTAB GI: Soft, mildly distended, on examination patient has significant tenderness on superficial and deep palpation especially in the right lower quadrant, epigastric, hypogastric area MSK: able to move all 4 limbs, no lower extremity edema SKIN: warm and dry 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 Results Labs 07/19/25 04:50 07/19/25 04:50 Labs: Short CBC 07/18/25 07/19/25 Range/Units 11:41 04:50 WBC 19.4 H 24.9 H D (3.6-11.0) Thou/mm3 Hgb 9.0 L 8.6 L (12.0-16.0) g/dL Hct 27.0 L 27.1 L (36.0-46.0) % Plt Count 422 D 469 H D (140-440) Thou/mm3 BMP 07/19/25 04:50 Sodium 139 Potassium 3.3 L Chloride 108 H Carbon Dioxide 22.0 BUN 8 L Creatinine 0.5 L Glucose 72 L Calcium 7.4 L Liver Function 07/19/25 Range/Units 04:50 Total Bilirubin 0.5 (0.3-1.2) mg/dL AST 16 (0-34) U/L ALT 7 L (10-49) U/L Alkaline Phosphatase 125 H (46-116) U/L Albumin 2.0 L D (3.4-4.8) gm/dL Urine 07/19/25 Range/Units 02:19 Urine Color Yellow (Lt Yel-Yel) Urine Clarity Clear (Clear/Hazy) Urine pH 6.0 (5.0-7.0) Ur Specific [place] 1.049 H (1.001-1.035) Urine Protein Trace (Neg - Trace) Urine Glucose (UA) Negative (Negative) Quality Measures Quality Measures none Advance care planning discussed with:: patient and other (daughter in lw) Medications Home Medications and Allergies Home Medications ?Medication ?Instructions ?Recorded ?Confirmed ?Type No Known Home Medications 07/19/2504/07 History Allergies Allergy/AdvReac Type Severity Reaction Status Date / Time No Known Allergies Allergy Verified 07/18/25 08:18 Visit Medications Acetaminophen (Acetaminophen 325 Mg Tablet) 650 mg PO Q6H PRN PRN Reason: Fever >100.4 Stop: 08/17/25 22:28 Last Admin: 07/18/25 23:24 Dose: 650 mg Acetaminophen (Acetaminophen 325 Mg Tablet) 650 mg PO Q6H PRN PRN Reason: PAIN SCALE 1-3 (mild Stop: 08/17/25 22:33 Sodium Chloride (Ns) 1,000 mls @ 75 mls/hr IV .[id number] [facility] Stop: 08/17/25 22:29 Last Admin: 07/18/25 22:59 Dose: 75 mls/hr Ceftriaxone Sodium/Dextrose (Rocephin/D5w 1gm Iv Premix) 1 gm in 50 mls @ 100 mls/hr IV QDAY [facility] Stop: 07/26/25 05:08 Last Admin: 07/19/25 08:15 Dose: 100 mls/hr Morphine Sulfate (Morphine Sulf Inj 4 Mg/Ml Vial) 2 mg IVP Q4HR PRN PRN Reason: PAIN SCALE 7-10 (Severe Stop: 07/23/25 22:33 Last Admin: 07/19/25 11:33 Dose: 2 mg Ondansetron HCl (Ondansetron Inj 2 Mg/Ml Inj 2 Ml) 4 mg IVP Q6H PRN; Protocol PRN Reason: NAUSEA OR VOMITING Stop: 08/17/25 22:28 Discontinued Medications Acetaminophen (Acetaminophen 500 Mg Tablet) 1,000 mg PO X1 ONE Stop: 07/18/25 08:42 Last Admin: 07/18/25 08:43 Dose: 1,000 mg Calcium Gluconate (Calcium Gluconate 10% Inj 1 Gm/10 Ml Vial) 1 gm IV X1 ONE Stop: 07/18/25 17:22 Last Admin: 07/18/25 19:38 Dose: 1 gm Heparin Sodium (Porcine) (Heparin Sod Inj 5000 Unit/Ml Vial) 5,000 unit SC BID SHAWNA Stop: 08/02/25 08:59 Ceftriaxone Sodium/Dextrose (Rocephin/D5w 1gm Iv Premix) 1 gm in 50 mls @ 100 mls/hr IV STAT STA Stop: 07/18/25 11:31 Last Infusion: 07/18/25 12:00 Dose: Infused Lactated Ringer's (Lactated Ringers) 1,000 mls @ 999 mls/hr IV .Q1H1M ONE Stop: 07/18/25 18:26 Last Infusion: 07/18/25 21:34 Dose: Infused Sodium Chloride (Ns) 1,000 mls @ 999 mls/hr IV .Q1H1M ONE Stop: 07/18/25 23:39 Last Infusion: 07/19/25 00:15 Dose: Infused Potassium Chloride (Kcl Ivpb) 10 meq in 100 mls @ 100 mls/hr IV Q1H [facility] Stop: 07/19/25 10:06 Last Admin: 07/19/25 10:20 Dose: 100 mls/hr Morphine Sulfate (Morphine Sulf Inj 4 Mg/Ml Vial) 2 mg IVP Q1H STA Stop: 07/18/25 16:56 Last Admin: 07/18/25 17:09 Dose: 2 mg Morphine Sulfate (Morphine Sulf Inj 4 Mg/Ml Vial) 4 mg IV X1 ONE Stop: 07/18/25 19:42 Last Admin: 07/18/25 20:32 Dose: 4 mg Polyethylene Glycol/Electrolytes (Na Anne/Nahco3/Gama/Peg (Golytely) 4,000 Ml Btl) 4,000 ml PO X1 ONE Stop: 07/19/25 09:01 Last Admin: 07/19/25 08:15 Dose: 1 1000units Assessment & Plan Plan Summary: 65-year-old female patient with no past medical history came to the ED due to worsening abdominal pain since February 2025. Patient reported that since February she started to have abdominal discomfort and mild pain. She reported that the symptoms associated with abdominal bloating and irregular bowel movements. The symptoms improved with laxatives and painkillers such as ibuprofen and Tylenol. Her symptoms continue to worsen over the past 2 months and on July 18, 2025 she started to experience severe abdominal pain 10 out of 10 located at the right lower quadrant associated with chills malaise and constipation. GI services were requested for cecal mass evaluation rule out malignancy #Sepsis #UTI versus question of localized intra-abdominal infection #Cecal mass #Leukocytosis #Normocytic anemia Patient patient presentation which include chronic pain for the past few months Worsening, weight loss, iron deficiency anemia 8.6 Hb, iron level is 5, normal 50-1 70, TIBC 135., with the CT scan findings of second mass that measure 11.2 x 9.6 x 9.2 cm right the concern of possible malignancy. Patient was also found to have sepsis overnight but a temperature of 101.2, heart rate of 123, WBC up trended to 24.2. The concern for possible associated localized intra-abdominal infection or could be secondary to her UTI Urinalysis showed positive WBCs of 66, however CT scan did not show any signs of pyelonephritis or compression manifestation of the second mass which indicate that the patient most likely have lower urinary tract infection. And because the patient has spikes of fever which is less likely to be associated with lower urinary tract infection which make us think that the patient also potentially has localized intra-abdominal infection. No previous colonoscopy or EGDs were done Plan ? We recommend starting the patient on Flagyl in addition to the ceftriaxone to cover possible associated intra-abdominal infection ? Continue preparing the patient for colonoscopy, monitor electrolytes closely and Replete electrolyte as needed ? Close vital signs monitoring ? Anticipated the need of oncology consultation for possible staging, chemotherapy and radiation followed by surgical resection based on the result. ? Consider iron supplements when appropriate ? Continue clear liquid diet Thank you for your consultation, please do not hesitate to reach out if you have any question can - Patient's plan and care discussed with my attending, Dr. Alexandro Hawkins MD Internal Medicine PGY-3 Attending Provider Attestation/Addendum Patient personally seen by me and evaluated Case discussed with the internal medicine team Tony hardin in progress Consent obtained for fiberoptic colonoscopy with possible biopsy possible therapeutic intervention under intravenous moderate sedation CEA level Will follow the patient Thank you very much for the opportunity to participate in the care of this patient
--- NOTE | 2025-07-19 14:04 | PD.SURCONS ---
[facility] Consult details Consult date: 07/18/25 Reason for consultation narrative: Patient was seen in consultation yesterday in the emergency room where she arrived with abdominal pain History of present illness: History presents revealed that the patient has been having some chronic pain in the lower abdomen since last February. Patient denies any history of nausea or vomiting or change in the bowel habits. Patient denies any history of blood in the stools. She has however lost about 20 pounds and has not been feeling well. She is also weak. She denies any other major medical illness. She came to the emergency room with with increasing pain. Past Medical History Past Medical History NEUROLOGIC: Negative Neurological Disorders CARDIAC: Positive Hypertension; Negative Cardiac Disorders or Congestive Heart Failure RESPIRATORY: Negative Chronic Obstructive Pulmonary Disease (COPD) or Asthma GASTROINTESTINAL: Negative Gastrointestinal Disorders GENITOURINARY: Negative Genitourinary Disorders or Renal Disease MUSCULOSKELETAL: Negative Musculoskeletal Disorders ENT: Negative History of ENT Problems ENDOCRINE: Negative Endocrine Disorders, Diabetes Mellitus Type 1 or Diabetes Mellitus Type 2 HEMATOLOGIC: Negative Sickle Cell Disease OTHER HISTORY: Negative Autoimmune Disease, Down Syndrome, Developmental Delay, Falls, Blood Transfusions or Anesthesia Reactions Family History FAMILY HISTORY: Positive Family Cancer (Father leukemia); Negative Family Cardiac Disorders Surgical History SURGICAL: Positive Abdominal Surgery Social History SMOKING STATUS: Never smoker SECOND HAND EXPOSURE: No SUBSTANCE USE: does not use Meds Home Medications and Allergies Home Medications ?Medication ?Instructions ?Recorded ?Confirmed ?Type No Known Home Medications 07/19/25 07/19/25 History Allergies Allergy/AdvReac Type Severity Reaction Status Date / Time No Known Allergies Allergy Verified 07/18/25 08:18 Exam Vital Signs Temp Pulse Resp BP Pulse Ox O2 Del Method 98.5 F 89 18 128/68 92 L Room Air 07/19/25 12:00 07/19/25 12:00 07/19/25 12:00 07/19/25 12:00 07/19/25 12:00 07/19/25 08:00 Narrative Exam Physical examination revealed an elderly lady who speaks only [place]an. She appears to be in her stated age and is 4 feet 9 inches tall weighing 143 pounds. Vital signs are normal Constitutional Constitutional: mild distress Routine Abdominal Exam Comments: Examination abdomen revealed tenderness in the right lower quadrant which is difficult to palpate. I do not feel any mass in the right lower quadrant because patient is guarding upon palpation. Routine Rectal Exam Comments: Deferred pending colonoscopy Routine Exam Comments: Deferred Routine Extremities Exam Comments: Within normal limits Results Results: Laboratory Laboratory Narrative: Patient's laboratory workup showed leukocytosis of 24,000 and anemia with hemoglobin around 8.5 g. Patient also has severe hypoproteinemia with proteins around 4.8 and albumin around 2 g because of malnutrition Results: Imaging Imaging narrative: CT scan of the abdomen showed a large mass which is vascular located in the right lower quadrant probably arising from the cecum+. This mass measures 11 cm x 9.5 cm. There are lymph nodes seen in the para-aortic region suggesting it may be malignant. Assessment & Plan Additional Assessment Additional comments: Impression: Mass abdomen possibly malignant lesion arising from cecum Hypoproteinemia Diabetes Significant weight loss Hypopotassemia Plan Plan: Patient will require at least a colonoscopy to rule out colonic lesion. If the lesion is outside the colon then we can arrange for biopsy or drainage. The leukocytosis is concerning because the patient could have an abscess even though it is well rounded to be an abscess. I reviewed the films with Dr. Busch would be glad to biopsy this if this turns out to be not located in the cecum. I will follow the patient with you
[2025-07-19] MEDS: metroNIDAZOLE/NS 500 MG IVPB 500 MG/100 ML BAG 200 MG IV ×2 (14:15→21:00)
--- NOTE | 2025-07-19 14:26 | PC.SS ---
Rounding: Pending colonoscopy, DC plan home
[2025-07-19] MEDS: ACETAMINOPHEN 325 MG TABLET 650 MG PO (15:54)
[2025-07-19] MEDS: ONDANSETRON INJ 2 MG/ML INJ 2 ML 4 MG IVP (15:56)
[2025-07-19] MEDS: SODIUM CHLORIDE 0.9% 1000 ML 1,000 ML 75 ML IV (17:23)
[2025-07-19 20:25] LABS: Carcinoembryonic Antigen 34.7 ng/mL (0.0-5.0)
[2025-07-20] VITALS (21 sets, daily range): BP systolic 127–174; BP diastolic 71–98; PULSE 75–119; RESP 12–93; TEMP 36.2–36.8; O2SAT 91–98
[2025-07-20] MEDS: MORPHINE SULF INJ 4 MG/ML VIAL 2 MG IVP ×3 (00:23→23:20)
[2025-07-20] MEDS: ONDANSETRON INJ 2 MG/ML INJ 2 ML 4 MG IVP ×4 (01:07→20:50)
[2025-07-20] MEDS: metroNIDAZOLE/NS 500 MG IVPB 500 MG/100 ML BAG 200 MG IV (04:56)
[2025-07-20] MEDS: SODIUM CHLORIDE 0.9% 1000 ML 1,000 ML 75 ML IV ×2 (05:11→15:04)
[2025-07-20 06:08] LABS: Basophils # (Auto) 0.1 Thou/mm3 (0.0-0.2); Basophils % (Auto) 0 % (0-2.5); Eosinophils # (Auto) 0.0 Thou/mm3 (0.0-0.5); Eosinophils % (Auto) 0 % (0-10); Hematocrit 27.8 % (36.0-46.0); Hemoglobin 9.3 g/dL (12.0-16.0); Immature Granulocytes Auto 0.55 Thou/mm3 (0.00-0.00); Lymphocytes # (Auto) 1.7 Thou/mm3 (1.0-4.8); Lymphocytes % (Auto) 5 % (10-50); Mean Corpuscular HGB Conc 33.5 g/dl (31.0-37.0); Mean Corpuscular Hemoglobin 27.4 pg (25.0-35.0); Mean Corpuscular Volume 82 fL (80-100); Monocytes # (Auto) 1.4 Thou/mm3 (0.0-0.8); Monocytes % (Auto) 4 % (0-12); Neutrophils # (Auto) 29.8 Thou/mm3 (1.8-7.7); Neutrophils % (Auto) 89 % (37-80); Nucleated Red Blood Cell # 0.00 Thou/mm3 (0.00-0.00); Nucleated Red Blood Cell % 0 /100 WBC (0); Platelet Count 480 Thou/mm3 (140-440); RDW Standard Deviation 50.0 fL (36.4-46.3); Red Blood Count 3.39 Miln/mm3 (4.00-5.20); White Blood Count 33.6 Thou/mm3 (3.6-11.0)
--- NOTE | 2025-07-20 06:44 | PC.NURSE ---
called Dr. Mc regarding patient having 2 episodes of vomting with clear yellow emesis. Latest episode was at 0400, patient is on golytly. Patient's stool is still no clear, still brownish in color. Per doctor to stop golytly for now and do a tap water enema.
[2025-07-20 06:47] LABS: Alanine Aminotransferase 8 U/L (10-49); Albumin, Serum 2.2 gm/dL (3.4-4.8); Albumin/Globulin Ratio 0.7 (1.2-2.2); Alkaline Phosphatase 145 U/L (46-116); Anion Gap 11 (7-16); Aspartate Amino Transferase 17 U/L (0-34); BUN/Creatinine Ratio 20 Ratio (12-20); Bilirubin,Total 0.4 mg/dL (0.3-1.2); Blood Urea Nitrogen 12 mg/dL (9-23); Calcium 7.7 mg/dL (8.3-10.6); Calcium (Corrected) 9.1 mg/dL (8.5-10.1); Carbon Dioxide 22.8 mMol/L (20.0-31.0); Chloride 104 mMol/L (98-107); Creatinine (Component) 0.6 mg/dL (0.6-1.3); Estimated Creatinine Clearance 72.5 mL/min (>60); Globulin 3.2 gm/dL (2.3-3.5); Glucose 114 mg/dL (74-106); Magnesium 1.9 mg/dL (1.6-2.6); Osmolality,Calculated 276 (275-295); Phosphorous 3.1 mg/dL (2.4-5.1); Potassium 3.3 mMol/L (3.4-5.1); Sodium 138 mMol/L (136-145); Total Protein 5.4 gm/dL (5.7-8.2); eGFR > 60 See Note
[2025-07-20] MEDS: POTASSIUM CHL 10 mEq IVPB 10 MEQ/100 ML BAG 100 MEQ IV ×2 (09:42→11:05)
[2025-07-20] MEDS: PIPER/TAZO INJ 4.5 GM in SODIUM CHLORIDE 0.9% (POP) 100 ML IV ×2 (09:48→17:16)
--- NOTE | 2025-07-20 12:23 | ESPR_ITS ---
<Statement entered by Roney Ugalde MD - 07/20/25 17:14> Patient was seen and evaluated at bedside this morning. Overnight patient experienced a fever yesterday evening of 100.2 and again had another fever this morning. Patient WBC are also uptrending therefore changed patient's antibiotics to Zosyn for pseudomonal coverage given that her blood cultures did grow GNR. Patient was placed on GoLytely yesterday, but was unable to tolerate it as she had to vomiting episodes and GI stated that they would like enema for better bowel prep. Pending colonoscopy. CEA was 34.7. General: A/O x3, no acute distress, ill-appearing Eyes: PERRL, EOMI. Anicteric, vision grossly intact. Ears: No ear pain, no ear discharge, Hearing grossly intact. Nose: No nasal discharge. Mouth/Throat: Moist mucous membranes, no redness, no lesions. Neck: Neck supple, non-tender, no cervical lymphadenopathy. Lungs: Clear YADY to auscultation and percussion, No accessory muscle use. Cardio: Normal S1/S2, regular rhythm, no murmurs, no JVD or carotid bruits. Abdomen: Soft,tender to palpation still in RLQ, no palpable masses, peristalsis present, no guarding or rebound. Extremities: Symmetrical, no significant deformities, no peripheral edema , non-tender, peripheral pulses presents. Skin: No rashes, no lesions, warm to touch. Neuro: No focal neurological deficits. motor and sensory intact Psych: Cooperative, appropriate mood and effect. I have reviewed the note and agree with the medical student's assessment & plan with exceptions as below. I have personally reviewed labs, imaging, home meds/prior records, examined the patient, formulated and discussed management plan with my attending Case disclosed with attending Dr. Piper Ugalde PGY2 Disclaimer: Even though this this note was dictated by speech recognition and even though it was carefully revised there may still be minor errors in cell inspector due to voice recognition software. Documentation for date of: 07/20/25 Subjective Subjective Interval history: Acute events: Yesterday ~1600 pt experienced fever up to highest 100.4 which resolved overnight. Overnight pt could not tolerate bowel regimen with Golytely and had two episodes of clear yellow emesis. Additionally during this time the nurse noticed the pt's stool was not yet clear. GI Dr. Mc was contacted who stopped Golytely. Today tap water enema will be ordered so that colonoscopy can proceed. Overnight telemetry showed sinus/sinus tachycardia. This morning pt reports fever/chills, diaphoresis as well as RLQ/suprapubic abdominal pain 8-06/23, however she also reports resolution of dysuria. She denies nausea this morning, chest pain, SOB, melena, hematochezia, frequency, urgency. Exam Vital Signs Temp Pulse Resp BP Pulse Ox O2 Del Method 97.1 F 109 H 17 137/83 H 91 L Room Air 07/20/25 08:00 07/20/25 08:00 07/20/25 08:00 07/20/25 08:00 07/20/25 08:00 07/20/25 08:00 Narrative Exam General: AOx3, no acute distress, able to speak full sentences HEENT: NC/AT, mucous membranes moist, bilateral sclera anicteric Cardiovascular: regular rate and rhythm, S1/S2 present, no murmurs appreciated Pulmonary: clear to auscultation bilaterally, no rales/rhonchi/wheezes. Notably poor inspiratory effort. Abdominal: non-distended, no rebound/guarding, normal bowel sounds present. O void mass located in RLQ. Tenderness present on palpating RLQ and suprapubic region Musculoskeletal: normal ROM Skin: warm and dry, intact, no rashes Neuro: CN II-XII intact, no focal deficits Objective Labs 07/20/25 05:45 07/20/25 05:45 Labs: Laboratory Results - last 24 hr 07/19/25 07/20/25 04:50 05:45 WBC 33.6 H D RBC 3.39 L Hgb 9.3 L Hct 27.8 L MCV 82 MCH 27.4 MCHC 33.5 RDW Std Deviation 50.0 H Plt Count 480 H Neut % (Auto) 89 H Lymph % (Auto) 5 L [place] % (Auto) 4 Eos % (Auto) 0 Baso % (Auto) 0 Neut # (Auto) 29.8 H Lymph # (Auto) 1.7 [place] # (Auto) 1.4 H Eos # (Auto) 0.0 Baso # (Auto) 0.1 Immature Gran # (Auto) 0.55 H Absolute Nucleated RBC 0.00 Immature Gran % 2 H Nucleated RBC % 0 Sodium 138 Potassium 3.3 L Chloride 104 Carbon Dioxide 22.8 Anion Gap 11 BUN 12 Creatinine 0.6 Estim Creat Clear Calc 72.5 eGFR > 60 BUN/Creatinine Ratio 20 Glucose 114 H D Calculated Osmolality 276 Calcium 7.7 L Corrected Calcium 9.1 Phosphorus 3.1 Magnesium 1.9 Total Bilirubin 0.4 AST 17 ALT 8 L Alkaline Phosphatase 145 H D Total Protein 5.4 L Albumin 2.2 L Globulin 3.2 Albumin/Globulin Ratio 0.7 L Carcinoembryonic Ag 34.7 H Quality Measures Quality Measures none Advance care planning discussed with:: patient Assessment & Plan Assessment Current Active Medications: Generic Name Dose Route Start Last Admin Trade Name Freq PRN Reason Stop Dose Admin Acetaminophen 650 mg 07/18/25 22:29 07/19/25 15:54 Acetaminophen 325 Mg Tablet PO 08/17/25 22:28 650 mg Q6H PRN Administration Fever >100.4 Acetaminophen 650 mg 07/18/25 22:34 Acetaminophen 325 Mg Tablet PO 08/17/25 22:33 Q6H PRN PAIN SCALE 1-3 (mild Sodium Chloride 1,000 mls @ 75 mls/hr 07/18/25 22:30 07/20/25 05:11 Ns IV 08/17/25 22:29 75 mls/hr .[id number] [facility]AW[facility] Administration Piperacillin Sod/Tazobactam 100 mls @ 25 mls/hr 07/20/25 10:00 07/20/25 09:48 Sod 4.5 gm/ Sodium Chloride IV 07/27/25 09:59 25 mls/hr Q8H [facility]AW[facility] Administration Protocol Morphine Sulfate 2 mg 07/18/25 22:34 07/20/25 04:54 Morphine Sulf Inj 4 Mg/Ml Vial IVP 07/23/25 22:33 2 mg Q4HR PRN Administration PAIN SCALE 7-10 (Severe Ondansetron HCl 4 mg 07/18/25 22:29 07/20/25 01:07 Ondansetron Inj 2 Mg/Ml Inj 2 Ml IVP 08/17/25 22:28 4 mg Q6H PRN Administration NAUSEA OR VOMITING Protocol Plan 65 yo F w/ PMH prediabetes, anemia presented with worsening of abdominal pain since yesterday, CT Scan shows Cecal Mass. Admitted for further workup/colonoscopy. #Cecal Mass unknown etiology #Leukocytosis #GNR Bacteremia Patient presented with worsening abdominal pain since day before admit. WBCs today continue to uptrend to 33.6, up from 24.9 yesterday, concerning for poor antibiotic efficacy against intraabdominal infxn vs malignancy. CT Abdomen in ED showed mass appearing to rise from the cecum. CEA this admit elevated at 34.7. Pt was scheduled for colonoscopy today however could not tolerate bowel regimen/Golytely. Additionally blood cultures came back positive for GNR - GenSurg consulted Dr. Suggs, appreciate recs. Also GI Dr. Mc consulted, appreciate recs, plan as below. - Ordered tap water enema, colonoscopy to follow. - S/p NS 1L Bolus, currently on NS Maintenance dose. - Acetaminophen/Zofran for symptomatic relief - DC IV Rocephin/IV Flagyl (07/19/25 - 07/20/25) - Started IV Zosyn 4.5gm (07/20-) d/t worsening leukocytosis and persistent fevers/sx of infection on previous abx #UTI #SIRS Patient met SIRS criteria leukocytosis, tachycardia, fever of 101 on day of admit however lactic acid was normal. Today pt reports resolution of urinary symptoms. Repeat UA showed evidence of UTI, additionally patient reports dysuria/frequency/urgency this AM. - FU cultures - Abx as above #Pericardial effusion Per CT ab/pelv in ED, 7mm effusion present. Possibly malignant in setting of large mass in the cecum/ colon. However pt is asymptomatic at this time, denies Chest pain, SOB, palpitations. - Consider Echo, however not currently indicated #Normocytic Anemia Acute on chronic, at this time most likely 2/2 cecal mass/possible malignancy. Iron panel this admit showed low Iron 5, TIBC 135, Iron Sat 3, Ferritin however normal at 135. Most likely mixed picture in setting of chronic disease with additional complication of volume loss in setting of malignancy. Pt however has no signs/sx of active bleed. - Follow CBCs in AM #Elevated BP (resolved) On admission BP noted to be 160/85, however pt has no HTN history and BP has been normal for the rest of this admit. - Monitor - FU outpt PCP Hospital management: Disposition: Pending colonoscopy and further workup per GenSurg/GI for possible cecal malignancy Fluids: normal saline 75ml/hr Diet: clear liquid Lines: peripheral IV DVT prophylaxis: SCDs CODE STATUS: full code ----- Plan discussed with attending physician Dr. Piper Neely, Medical Student [employer] Attending Provider Attestation/Addendum I have discussed and was present for the essential components of the history, physical examination, diagnosis, and treatment plan with the resident. I agree with the patient's care as documented by the resident and amended herein by me. Fernando Saldaña DO. Although this document has been carefully reviewed, there may still be some phonetic and other typographical errors. These errors are purely grammatical due to imperfections in the software program and should not be construed in any way to compromise the substance of the patient's medical care during this visit. Patient seen and evaluated this AM. No acute events overnight, Tmax 100.4, significant labs include a WBC of 33.6 which is a sharp uptrend, hemoglobin 9.3, platelet count 480, potassium 3.3 which will be repleted. Patient started on Zosyn today due to continued fever and uptrending WBC for broader coverage, urine culture still pending, blood cultures demonstrating GNR in 1 set of cultures in the anaerobic bottle. Colonoscopy is pending, will follow-up with further recommendations after the procedure has been performed. Appreciate all surgical and gastroenterology recommendations, will continue to monitor closely.
--- NOTE | 2025-07-20 18:50 | SUR.PHASEI ---
1850: Pt. wakes to name then drifts back to sleep, vital stable, breathing unlabored, no complaint of pain or nausea, no dressing in place, no active bleed noted, report received from Hanna KNIGHT.
--- NOTE | 2025-07-20 19:25 | SUR.PHASEI ---
1925: Pt. AAOx4, vitals stable, breathing unlabored, no complaint of pain, pt. started to get nauseous on the way back to room 364, floor nurse Aranza made aware. Gave report to floor nurse prior to transfer to room. Family aware of transfer back to room.
[2025-07-21] VITALS (16 sets, daily range): BP systolic 102–149; BP diastolic 68–94; PULSE 96–116; RESP 12–125; TEMP 36.1–36.9; O2SAT 91–99
[2025-07-21] MEDS: PIPER/TAZO INJ 4.5 GM in SODIUM CHLORIDE 0.9% (POP) 100 ML IV ×2 (02:02→17:47)
[2025-07-21 06:05] LABS: Basophils # (Auto) 0.1 Thou/mm3 (0.0-0.2); Basophils % (Auto) 0 % (0-2.5); Eosinophils # (Auto) 0.0 Thou/mm3 (0.0-0.5); Eosinophils % (Auto) 0 % (0-10); Hematocrit 26.6 % (36.0-46.0); Hemoglobin 9.0 g/dL (12.0-16.0); Immature Granulocytes Auto 0.58 Thou/mm3 (0.00-0.00); Lymphocytes # (Auto) 1.8 Thou/mm3 (1.0-4.8); Lymphocytes % (Auto) 5 % (10-50); Mean Corpuscular HGB Conc 33.8 g/dl (31.0-37.0); Mean Corpuscular Hemoglobin 27.4 pg (25.0-35.0); Mean Corpuscular Volume 81 fL (80-100); Monocytes # (Auto) 1.6 Thou/mm3 (0.0-0.8); Monocytes % (Auto) 5 % (0-12); Neutrophils # (Auto) 29.1 Thou/mm3 (1.8-7.7); Neutrophils % (Auto) 88 % (37-80); Nucleated Red Blood Cell # 0.00 Thou/mm3 (0.00-0.00); Nucleated Red Blood Cell % 0 /100 WBC (0); Platelet Count 523 Thou/mm3 (140-440); RDW Standard Deviation 48.3 fL (36.4-46.3); Red Blood Count 3.28 Miln/mm3 (4.00-5.20); White Blood Count 33.2 Thou/mm3 (3.6-11.0)
[2025-07-21 06:50] LABS: Alanine Aminotransferase < 7 U/L (10-49); Albumin, Serum 2.1 gm/dL (3.4-4.8); Albumin/Globulin Ratio 0.7 (1.2-2.2); Alkaline Phosphatase 136 U/L (46-116); Anion Gap 14 (7-16); Aspartate Amino Transferase 14 U/L (0-34); BUN/Creatinine Ratio 18 Ratio (12-20); Bilirubin,Total 0.4 mg/dL (0.3-1.2); Blood Urea Nitrogen 11 mg/dL (9-23); Calcium 7.7 mg/dL (8.3-10.6); Calcium (Corrected) 9.2 mg/dL (8.5-10.1); Carbon Dioxide 21.3 mMol/L (20.0-31.0); Chloride 104 mMol/L (98-107); Creatinine (Component) 0.6 mg/dL (0.6-1.3); Estimated Creatinine Clearance 72.5 mL/min (>60); Globulin 2.9 gm/dL (2.3-3.5); Glucose 87 mg/dL (74-106); Magnesium 2.0 mg/dL (1.6-2.6); Osmolality,Calculated 275 (275-295); Phosphorous 2.9 mg/dL (2.4-5.1); Potassium 3.0 mMol/L (3.4-5.1); Sodium 139 mMol/L (136-145); Total Protein 5.0 gm/dL (5.7-8.2); eGFR > 60 See Note
--- NOTE | 2025-07-21 08:23 | ESPR_ITS ---
Documentation for date of: 07/21/25 Subjective Subjective Brief History: History presents revealed that the patient has been having some chronic pain in the lower abdomen since last February. Patient denies any history of nausea or vomiting or change in the bowel habits. Patient denies any history of blood in the stools. She has however lost about 20 pounds and has not been feeling well. She is also weak. She denies any other major medical illness. She came to the emergency room with with increasing pain. Narrative: Patient underwent colonoscopy and was found to have a large mass in the ascending colon. She continues to have leukocytosis and tenderness over the right lower quadrant Exam Vital Signs Temp Pulse Resp BP Pulse Ox O2 Del Method O2 Flow Rate 97.1 F 115 H 18 143/88 H 93 L Nasal Cannula 2 07/21/25 04:00 07/21/25 04:00 07/21/25 04:00 07/21/25 04:00 07/21/25 04:00 07/21/25 04:00 07/21/25 04:00 Her vital signs are normal other than tachycardia Routine Abdominal Exam Comments: Essentially unchanged Results Results: Laboratory Laboratory Narrative: Laboratory results show anemia and severe hypoproteinemia Assessment & Plan Assessment Additional comments: Impression: Carcinoma of the ascending colon Anemia Hypoproteinemia Plan Plan: I discussed with the son and the patient regarding the condition patient will require exploration and removal of this mass and possibly anastomosis. If the anastomosis is not possible and if the mass is not resectable patient will require palliative ileostomy. The risks of the procedure including po stoperative complications like anastomotic leak sepsis and even mortality was discussed with the son. They agreed to proceed.
--- NOTE | 2025-07-21 13:22 | SUR.PHASEI ---
1322 Patient arrived to recovery sleeping in bed, able to arouse with verbal prompting then drifts back to sleep on oxygen 8L via oxy mask, breathing unlabored, vital signs stable, denies pain, dressing intact to abdomen; jose l, adaptic, gauze, medipore tape, no bleeding noted, NG tube in place 60cm to right nares with dark green fluid in tube, verbal order received to connect to low intermittent suction, urinary catheter 16F in place with leg secure draining to gravity, PRBC's currently running in IV to left forearm, patient tolerating well, no reaction noted, will monitor patient, report received from Dr. Garcia and Riddhi KNIGHT
--- NOTE | 2025-07-21 14:00 | SUR.PHASEI ---
1400 PRBC's finished patient tolerating well, no reaction noted
--- NOTE | 2025-07-21 14:00 | SUR.PHASEI ---
1400 PRBC's finished, patient tolerated well, no reaction noted
--- NOTE | 2025-07-21 14:02 | ESPR_ITS ---
<Statement entered by Roney Ugalde MD - 07/21/25 15:58> VPatient was seen and evaluated at bedside this morning. No acute overnight events. Patient underwent colonoscopy yesterday and showed an obstructing mass at the ascending colon and general surgery will take the patient to the OR today for resection of the mass. Given this we will also consult hematology oncology for further recommendations. Otherwise patient did not spike any further fevers, but WBC are still significantly elevated at 33.2. Patient potassium was low therefore was repleted. DC fluids due to edema. Still pending final results of blood cultures and urine cultures. No other complaints at this time. General: A/O x3, no acute distress, ill appearing Eyes: PERRL, EOMI. Anicteric, vision grossly intact. Ears: No ear pain, no ear discharge, Hearing grossly intact. Nose: No nasal discharge. Mouth/Throat: Moist mucous membranes, no redness, no lesions. Neck: Neck supple, non-tender, no cervical lymphadenopathy. Lungs: Clear YADY to auscultation and percussion, No accessory muscle use. Cardio: Normal S1/S2, regular rhythm, no murmurs, no JVD or carotid bruits. Abdomen: Soft, RLQ tender, no palpable masses, peristalsis present, no guarding or rebound. Extremities: Symmetrical, no significant deformities, 2+ peripheral edema , non-tender, peripheral pulses presents. Skin: No rashes, no lesions, warm to touch. Neuro: No focal neurological deficits. Psych: Cooperative, appropriate mood and effect. I have reviewed the note and agree with the medical student's assessment & plan with exceptions as below. I have personally reviewed labs, imaging, home meds/prior records, examined the patient, formulated and discussed management plan with my attending Roney Ugalde PGY2 Disclaimer: Even though this this note was dictated by speech recognition and even though it was carefully revised there may still be minor errors in ems manager due to voice recognition software. Documentation for date of: 07/21/25 Subjective Subjective Interval history: Spoke at length with patient and nurse. Overnight no cute events. Telemetry showed sinus to sinus tachycardia highest 110sHR. She received colonoscopy yesterday and general surgery plans for exploratory laparotomy today. This morning, pt reports ongoing abdominal pain improved to 5/10 from yesterday, nausea, vomiting. She denies dysuria, chest pain, SOB, palpitations, diarrhea, constipation, fever, chills, hematuria, hematochezia. Notably, she has developed 2+ pitting edema of b/l LEs overnight that she has never had before in the past. She denies hx of HF, cirrhosis, kidney disease. Most likely this is 2/2 fluid administration this admission. ROS negative except as noted above. Exam Vital Signs Temp Pulse Resp BP Pulse Ox O2 Del Method O2 Flow Rate 97.2 F 109 H 12 113/77 99 Room Air 8 07/21/25 13:22 07/21/25 13:22 07/21/25 13:22 07/21/25 13:22 07/21/25 13:22 07/21/25 08:00 07/21/25 13:22 Narrative Exam General: A/O x3, no acute distress Eyes: PERRL, EOMI. Anicteric, vision grossly intact. Ears: No ear pain, no ear discharge, Hearing grossly intact. Nose: No nasal discharge. Mouth/Throat: Moist mucous membranes, no redness, no lesions. Neck: Neck supple, non-tender, no cervical lymphadenopathy. Lungs: Clear to auscultation bilaterally, no rales/rhonchi/wheezes, no accessory muscle use. Cardio: Normal S1/S2, tachycardic, regular rhythm, no murmurs, no JVD Abdomen: Soft, TTP w/ RLQ ovoid mass, peristalsis present, no guarding or rebound. Extremities: Symmetrical, no significant deformities, 2+ pitting edema of b/l LEs, non-tender, peripheral pulses presents. Skin: No rashes, no lesions, warm to touch. Neuro: No focal neurological deficits. motor and sensory intact Psych: Cooperative, appropriate mood and effect. Objective Labs 07/22/25 05:15 07/22/25 05:15 Labs: Laboratory Results - last 24 hr 07/21/25 07/21/25 05:39 08:55 WBC 33.2 H RBC 3.28 L Hgb 9.0 L Hct 26.6 L MCV 81 MCH 27.4 MCHC 33.8 RDW Std Deviation 48.3 H Plt Count 523 H D Neut % (Auto) 88 H Lymph % (Auto) 5 L [place] % (Auto) 5 Eos % (Auto) 0 Baso % (Auto) 0 Neut # (Auto) 29.1 H Lymph # (Auto) 1.8 [place] # (Auto) 1.6 H Eos # (Auto) 0.0 Baso # (Auto) 0.1 Immature Gran # (Auto) 0.58 H Absolute Nucleated RBC 0.00 Immature Gran % 2 H Nucleated RBC % 0 Sodium 139 Potassium 3.0 L Chloride 104 Carbon Dioxide 21.3 Anion Gap 14 BUN 11 Creatinine 0.6 Estim Creat Clear Calc 72.5 eGFR > 60 BUN/Creatinine Ratio 18 Glucose 87 Calculated Osmolality 275 Calcium 7.7 L Corrected Calcium 9.2 Phosphorus 2.9 Magnesium 2.0 Total Bilirubin 0.4 AST 14 ALT < 7 L Alkaline Phosphatase 136 H Total Protein 5.0 L Albumin 2.1 L Globulin 2.9 Albumin/Globulin Ratio 0.7 L Blood Type O Positive Antibody Screen NEGATIVE Crossmatch See Detail Blood Bank Wristband ID Yes Quality Measures Quality Measures none Advance care planning discussed with:: patient Assessment & Plan Assessment Current Active Medications: Generic Name Dose Route Start Last Admin Trade Name Freq PRN Reason Stop Dose Admin Acetaminophen 650 mg 07/18/25 22:29 07/19/25 15:54 Acetaminophen 325 Mg Tablet PO 08/17/25 22:28 650 mg Q6H PRN Administration Fever >100.4 Acetaminophen 650 mg 07/18/25 22:34 Acetaminophen 325 Mg Tablet PO 08/17/25 22:33 Q6H PRN PAIN SCALE 1-3 (mild Piperacillin Sod/Tazobactam 100 mls @ 25 mls/hr 07/20/25 10:00 07/21/25 10:43 Sod 4.5 gm/ Sodium Chloride IV 07/27/25 09:59 Not Given Q8H [facility] Protocol Potassium Chloride 10 meq in 100 mls @ 100 mls/hr 07/21/25 11:26 07/21/25 11:34 Kcl Ivpb IV 07/21/25 14:25 Not Given Q1H [facility] Morphine Sulfate 2 mg 07/18/25 22:34 07/20/25 23:20 Morphine Sulf Inj 4 Mg/Ml Vial IVP 07/23/25 22:33 2 mg Q4HR PRN Administration PAIN SCALE 7-10 (Severe Ondansetron HCl 4 mg 07/18/25 22:29 07/20/25 20:50 Ondansetron Inj 2 Mg/Ml Inj 2 Ml IVP 08/17/25 22:28 4 mg Q6H PRN Administration NAUSEA OR VOMITING Protocol Plan 65 yo F w/ PMH prediabetes, anemia presented with worsening of abdominal pain since yesterday, CT Scan shows Cecal Mass. Admitted for further workup/colonoscopy. #Cecal Mass unknown etiology #Leukocytosis #GNR Bacteremia Patient presented with worsening abdominal pain since day before admit. WBCs today mildly downtrend to 33.[address] Abdomen in ED showed mass appearing to rise from the cecum. CEA this admit elevated at 34.7. Pt underwent colonoscopy yesterday which revealed likely malignant and obstructive mass of ascending colon w/ Dr. Mc. Blood cultures positive for GNR - GenSurg consulted Dr. Suggs, appreciate recs. Also GI Dr. Mc consulted, appreciate recs, plan as below. - Plan to perform exploratory laparotomy today. Pt has been NPO since midnight. - Fluids have been discontinued - Acetaminophen/Zofran for symptomatic relief - S/p IV Rocephin/IV Flagyl (07/19/25 - 07/20/25) - Cont IV Zosyn 4.5gm (07/20-) d/t persistent leukocytosis and signs/sx of infection #UTI #SIRS Patient met SIRS criteria leukocytosis, tachycardia, fever of 101 on day of admit however lactic acid was normal. Repeat UA showed evidence of UTI, though pt has no genitourinary symptoms today. - FU cultures - Abx as above #Pericardial effusion Per CT ab/pelv in ED, 7mm effusion present. Possibly malignant in setting of large mass in the cecum/ colon. However pt is asymptomatic at this time, denies Chest pain, SOB, palpitations. - Consider Echo, however not currently indicated #Normocytic Anemia Acute on chronic, at this time most likely 2/2 cecal mass/possible malignancy. Iron panel this admit showed low Iron 5, TIBC 135, Iron Sat 3, Ferritin however normal at 135. Most likely mixed picture in setting of chronic disease with additional complication of volume loss in setting of malignancy. Pt however has no signs/sx of active bleed. - Follow CBCs in AM #Elevated BP (resolved) On admission BP noted to be 160/85, however pt has no HTN history and BP has been normal for the rest of this admit. - Monitor - FU outpt PCP Hospital management: Disposition: Pending GenSurg intervention for visualized cecal malignancy Diet: NPO Lines: peripheral IV DVT prophylaxis: SCDs CODE STATUS: full code ----- Plan discussed with attending physician Dr. Piper Neely, Medical Student OMSIV Attending Provider Attestation/Addendum I have discussed and was present for the essential components of the history, physical examination, diagnosis, and treatment plan with the resident. I agree with the patient's care as documented by the resident and amended herein by me. Fernando Saldaña DO. Although this document has been carefully reviewed, there may still be some phonetic and other typographical errors. These errors are purely grammatical due to imperfections in the software program and should not be construed in any way to compromise the substance of the patient's medical care during this visit.
--- NOTE | 2025-07-21 14:41 | SUR.PHASEI ---
1436 Report given to Rhiannon KNIGHT, patient meets discharge criteria from recovery, resting comfortably in bed, able to arouse with verbal prompting then drifts back to sleep on oxygen 2L via nasal cannula, breathing unlabored, vital signs stable, denies pain, dressing intact to abdomen; no bleeding noted, NG tube in place 60cm to right nares with dark green fluid in tube 250ml in suction canister, urinary catheter 16F in place with leg secure draining to gravity, denies nausea 1441 patient transported via bed to room 364 without incident, Rhiannon KNIGHT promptly in patients room, patient resting comfortably with call light in reach when this sign writer letterer or painter left patients room
--- NOTE | 2025-07-21 14:45 | PC.SS ---
rounding note: Patient to undergo surgery today. Notes indicate carcinoma of the ascending colon. Surgery for removal. Patient is from home. SS will followup with d/c needs.
[2025-07-21] MEDS: SODIUM CHLORIDE 0.9% 1000 ML 1,000 ML 125 ML IV (16:15)
[2025-07-21 17:56] LABS: Carcinoembryonic Antigen 32.7 ng/mL (0.0-5.0)
--- NOTE | 2025-07-21 18:04 | PD.SUROPNT ---
Date of Procedure 07/21/25 Pre Op Diagnosis Carcinoma of the ascending colon with possible perforation and abscess Post Op Diagnosis Same Procedure Exploratory laparotomy and right hemicolectomy and ilio transverse colostomy Findings Patient was found to have a large mass measuring about 10 cm in diameter which is lobulated and has drained some purulent material. This was diagnosed to be a carcinoma on the colonoscopy Procedure Description After the patient was brought to the operating room endotracheal anesthesia was given. Abdomen was prepped and draped with ChloraPrep solution in a sterile manner. Timeout was performed. A transverse incision was made just above the umbilicus and abdominal cavity was entered. Patient was found to have a huge mass in the right lower quadrant and there was some purulent material seen within the mass. But the pus was very small in quantity. This mass seems to be eventually adherent to the mesentery as well as in the posterior abdominal wall. The ileum was found to be stuck to the mass and could not be easily. At this time I felt that this mass was unresectable. I asked to help from Dr Aguilar who came down to help me in the operating room. Together the mass was dissected out from the lateral and posterior portion. Then the mass was resected with considerable difficulty clamp being the mesenteric vessels with Enseal. The transverse colon was and stapled across with a YONAS 75. Distally the terminal ileum also was using YONAS 75. The mass was dissected away from the bottom of the liver avoiding injury to the duodenum. Retroperitoneally it was stuck very close to the structures but it was freed from the iliac vessels without difficulty. Ureter could not be clearly identified but it was kept away from harm's way. The mesentery was clamped and tied with 0 silk sutures for the vessels. After delivering the mass I realized that the terminal 2 feet of the ileum also appeared dusky probably due to mesenteric vessels being tied. A portion of the mass was stuck to the sigmoid colon from which it was carefully avoiding injury to the later. I have decided to remove the terminal 2 feet of bowel where there was a laceration during the course of dissection. Then the terminal ileum to feet away from the ileocecal junction was anastomosed to the transverse colon I used handsewn anastomosis with a 3-0 silk and 3-0 chromic suture for the entire thickness of the bowel wall. At the end the anastomosis appeared sound. This appears to be a palliative resection because of the extensive infiltration of the tumor to the surrounding tissues. Wound was then extensively irrigated and closed in layers using 0 PDS for the fascia and the peritoneum. Subcutaneous tissue was closed with 3-0 chromic and the skin by jose l after injecting Marcaine for analgesia. Patient tolerated procedure. Anesthesia GETA Pathology / specimen Other (1. The ascending colon mass with cancer, #2 the serosal edge attached to the sigmoid colon containing mass) IVF Infused 1,000 Estimated Blood Loss 400 Condition Stable Disposition PACU Surgeon Riky Sánchez MD Surgical Staff Operation Date: 07/21/25 10:15 Case Staff Anesthesiologist: Will Garcia Assisting Surgeon: Suzan Aguilar RNreturn agent: Estee Gill RN First Assistant: Tawnya Moscoso
[2025-07-21] MEDS: MORPHINE SULF INJ 4 MG/ML VIAL IVP (19:53)
--- NOTE | 2025-07-21 21:03 | PD.IMPROG ---
Documentation for date of: 07/21/25 Subjective Subjective Interval history: Patient evaluated extensive mass starting in the ascending colon ?To stone destruction including vascular structures attached to the sigmoid colon very difficult resection which is palliative Distal to feed of the small intestine had to be taken out and eventually ileotransverse anastomosis was established Will get oncology consultation on board Exam Vital Signs Temp Pulse Resp BP Pulse Ox O2 Del Method O2 Flow Rate 97.0 F 96 16 102/74 95 Nasal Cannula 2 07/21/25 20:00 07/21/25 20:00 07/21/25 20:00 07/21/25 20:00 07/21/25 20:00 07/21/25 20:00 07/21/25 20:00 Objective Labs 07/21/25 05:39 07/21/25 05:39 Labs: Laboratory Results - last 24 hr 07/21/25 07/21/25 05:39 08:55 WBC 33.2 H RBC 3.28 L Hgb 9.0 L Hct 26.6 L MCV 81 MCH 27.4 MCHC 33.8 RDW Std Deviation 48.3 H Plt Count 523 H D Neut % (Auto) 88 H Lymph % (Auto) 5 L [place] % (Auto) 5 Eos % (Auto) 0 Baso % (Auto) 0 Neut # (Auto) 29.1 H Lymph # (Auto) 1.8 [place] # (Auto) 1.6 H Eos # (Auto) 0.0 Baso # (Auto) 0.1 Immature Gran # (Auto) 0.58 H Absolute Nucleated RBC 0.00 Immature Gran % 2 H Nucleated RBC % 0 Sodium 139 Potassium 3.0 L Chloride 104 Carbon Dioxide 21.3 Anion Gap 14 BUN 11 Creatinine 0.6 Estim Creat Clear Calc 72.5 eGFR > 60 BUN/Creatinine Ratio 18 Glucose 87 Calculated Osmolality 275 Calcium 7.7 L Corrected Calcium 9.2 Phosphorus 2.9 Magnesium 2.0 Total Bilirubin 0.4 AST 14 ALT < 7 L Alkaline Phosphatase 136 H Total Protein 5.0 L Albumin 2.1 L Globulin 2.9 Albumin/Globulin Ratio 0.7 L Carcinoembryonic Ag 32.7 H Blood Type O Positive Antibody Screen NEGATIVE Crossmatch See Detail Blood Bank Wristband ID Yes Impressions Impression: Advanced ascending colon carcinoma with perforation Palliative resection with ileotransverse anastomosis Plan Postoperative course to continue consultation with Dr. Solis Assessment & Plan Time Spent With Patient Time: Total time spent is greater than 50% in coordination of care (as documented) at patient's floor/unit and/or counseling patient:
[2025-07-22] VITALS (7 sets, daily range): BP systolic 107–125; BP diastolic 69–80; PULSE 90–109; RESP 15–95; TEMP 36.3–36.6; O2SAT 92–96; BMI 30.9
[2025-07-22] MEDS: PIPER/TAZO INJ 4.5 GM in SODIUM CHLORIDE 0.9% (POP) 100 ML IV ×3 (02:09→18:45)
[2025-07-22] MEDS: ONDANSETRON INJ 2 MG/ML INJ 2 ML 4 MG IVP (04:21)
[2025-07-22 05:54] LABS: Basophils # (Auto) 0.2 Thou/mm3 (0.0-0.2); Basophils % (Auto) 0 % (0-2.5); Eosinophils # (Auto) 0.4 Thou/mm3 (0.0-0.5); Eosinophils % (Auto) 1 % (0-10); Hematocrit 29.2 % (36.0-46.0); Hemoglobin 9.8 g/dL (12.0-16.0); Immature Granulocytes Auto 1.68 Thou/mm3 (0.00-0.00); Lymphocytes # (Auto) 1.9 Thou/mm3 (1.0-4.8); Lymphocytes % (Auto) 5 % (10-50); Mean Corpuscular HGB Conc 33.6 g/dl (31.0-37.0); Mean Corpuscular Hemoglobin 28.7 pg (25.0-35.0); Mean Corpuscular Volume 86 fL (80-100); Monocytes # (Auto) 1.4 Thou/mm3 (0.0-0.8); Monocytes % (Auto) 4 % (0-12); Neutrophils # (Auto) 31.1 Thou/mm3 (1.8-7.7); Neutrophils % (Auto) 85 % (37-80); Nucleated Red Blood Cell # 0.00 Thou/mm3 (0.00-0.00); Nucleated Red Blood Cell % 0 /100 WBC (0); Platelet Count 384 Thou/mm3 (140-440); RDW Standard Deviation 49.7 fL (36.4-46.3); Red Blood Count 3.41 Miln/mm3 (4.00-5.20)
[2025-07-22 06:17] LABS: Alanine Aminotransferase 10 U/L (10-49); Albumin, Serum 2.0 gm/dL (3.4-4.8); Albumin/Globulin Ratio 0.7 (1.2-2.2); Alkaline Phosphatase 105 U/L (46-116); Anion Gap 15 (7-16); Aspartate Amino Transferase 25 U/L (0-34); BUN/Creatinine Ratio 17 Ratio (12-20); Bilirubin,Total 0.4 mg/dL (0.3-1.2); Blood Urea Nitrogen 20 mg/dL (9-23); Calcium 8.1 mg/dL (8.3-10.6); Calcium (Corrected) 9.7 mg/dL (8.5-10.1); Carbon Dioxide 18.5 mMol/L (20.0-31.0); Chloride 108 mMol/L (98-107); Creatinine (Component) 1.2 mg/dL (0.6-1.3); Estimated Creatinine Clearance 36.3 mL/min (>60); Globulin 2.7 gm/dL (2.3-3.5); Glucose 134 mg/dL (74-106); Osmolality,Calculated 285 (275-295); Potassium 3.6 mMol/L (3.4-5.1); Sodium 141 mMol/L (136-145); Total Protein 4.7 gm/dL (5.7-8.2); eGFR 50 See Note
[2025-07-22 06:19] LABS: White Blood Count 36.6 Thou/mm3 (3.6-11.0)
[2025-07-22 06:32] LABS: Path Review Blood Smear Sent to Pathologist
--- NOTE | 2025-07-22 07:34 | PD.ONCCONS ---
HPI Data of Consult Consult date: 07/22/25 Requesting Physician: Rai Saldaña DO Primary Care Provider: ERIBERTO Martinez([facility]) Consult Narrative Reason for consult: Suspected colon malignancy status post palliative resection History of present illness: Patient was admitted 07/18/2025 with pain [place] [address] revealed large vascular mass in the right abdomen which appeared to be arising from the cecum most likely malignant neoplasm 11 x 9.5 x 9.2 cm. Pericardial effusion measuring up to 7 mm also noted. Colonoscopy performed by Dr. Mc 07/20/2025 revealed large mass likely malignant complete obstructing tumor in the ascending colon. On 07/21/2025 patient underwent explorative laparotomy with Dr. Suggs with large mass measuring 10 cm lobulated and draining of some purulent material. Exploratory laparotomy and right hemicolectomy and ileotransverse colostomy performed. Today day 1 postop patient is recovering satisfactorily. A.m. CBC 36.6 WBC hemoglobin 9.8 platelets 3 84,000. Vital signs are stable and patient is afebrile. CMP mild elevation of glucose, CEA is elevated at 32.7 AST ALT bilirubin not elevated. Alk phos mildly elevated on admission this a.m. 105. Patient now referred for oncological consultation. cc:: cc: Rai Saldaña DO Past Medical History Family History OTHER FAMILY HX: Diverticulosis diverticulitis Social History SOCIAL: Originally from [facility] Korean-speaking denies drinking smoking Past Medical History Comments PMH COMMENT: Borderline diabetes prior UTI anemia prior cholecystectomy Meds Home Medications and Allergies Home Medications ?Medication ?Instructions ?Recorded ?Confirmed ?Type No Known Home Medications 07/19/25 07/19/25 History Allergies Allergy/AdvReac Type Severity Reaction Status Date / Time No Known Allergies Allergy Verified 07/18/25 08:18 Exam Vital Signs Temp Pulse Resp BP Pulse Ox O2 Del Method O2 Flow Rate 97.4 F 104 H 19 123/80 95 Nasal Cannula 2 07/22/25 03:59 07/22/25 03:59 07/22/25 03:59 07/22/25 03:59 07/22/25 03:59 07/22/25 03:59 07/22/25 03:59 Narrative Exam Patient appears to be comfortable answering questions appropriately Results Labs 07/22/25 05:15 07/22/25 05:15 Labs: Short CBC 07/22/25 Range/Units 05:15 WBC 36.6 H* (3.6-11.0) Thou/mm3 Hgb 9.8 L (12.0-16.0) g/dL Hct 29.2 L (36.0-46.0) % Plt Count 384 D (140-440) Thou/mm3 BMP 07/22/25 05:15 Sodium 141 Potassium 3.6 D Chloride 108 H Carbon Dioxide 18.5 L BUN 20 Creatinine 1.2 D Glucose 134 H D Calcium 8.1 L Liver Function 07/22/25 Range/Units 05:15 Total Bilirubin 0.4 (0.3-1.2) mg/dL AST 25 (0-34) U/L ALT 10 (10-49) U/L Alkaline Phosphatase 105 D (46-116) U/L Albumin 2.0 L (3.4-4.8) gm/dL Assessment and Plan Additional Assessment & Plan Additional Plan: 1. Large ascending colon mass, suspected cancer, attached to sigmoid colon status post right hemicolectomy ileotransverse anastomosis. 2. Significant leukocytosis pericardial effusion noted on CT UTI, appearing comfortable this a.m. with supportive care Postop day 1. 3. Will check pathology and follow patient upon discharge at the cancer treatment center. 4 Thank you very much for allowing me to evaluate this patient.
[2025-07-22] MEDS: SODIUM CHLORIDE 0.9% 1000 ML 1,000 ML 125 ML IV (09:31)
--- NOTE | 2025-07-22 09:45 | PC.NURSE ---
Patient pulled out NG tube I called Dr. Suggs and its okay to keep out only 50ml in container. If patient starts to vomit again I will reinsert again. Will continue to monitor patient.
[2025-07-22] MEDS: MORPHINE SULF INJ 4 MG/ML VIAL IVP ×3 (10:00→20:51)
--- NOTE | 2025-07-22 10:10 | ESPR_ITS ---
<Statement entered by Roney Ugalde MD - 07/22/25 19:17> Patient was seen and evaluated at bedside this morning. No acute overnight events. Patient underwent resection of the mass by general surgery. Patient's surgery was difficult as mass was adhered to the ileum therefore tube feed of bowel had to be resected and anastomosis terminal ileum with transverse colon. Hematology was consulted and oncology as well. Otherwise patient is states she has some pain in her abdomen. General surgeon recommended start the patient on TPN therefore central line was placed to start TPN. Peripheral edema improving, no other complaint this time. General: A/O x3, no acute distress, ill appearing Eyes: PERRL, EOMI. Anicteric, vision grossly intact. Ears: No ear pain, no ear discharge, Hearing grossly intact. Nose: No nasal discharge. Mouth/Throat: Moist mucous membranes, no redness, no lesions. Neck: Neck supple, non-tender, no cervical lymphadenopathy. Lungs: Clear YADY to auscultation and percussion, No accessory muscle use. Cardio: Normal S1/S2, regular rhythm, no murmurs, no JVD or carotid bruits. Abdomen: Soft, tender with palpation, no palpable masses, peristalsis present, no guarding or rebound. Abdominal binder in place. Extremities: Symmetrical, no significant deformities, 2+ edema on feet, non- tender, peripheral pulses presents. Skin: No rashes, no lesions, warm to touch. Neuro: No focal neurological deficits. Psych: Cooperative, appropriate mood and effect. I have reviewed the note and agree with the medical student's assessment & plan with exceptions as below. I have personally reviewed labs, imaging, home meds/prior records, examined the patient, formulated and discussed management plan with my attending Roney Ugalde PGY2 Disclaimer: Even though this this note was dictated by speech recognition and even though it was carefully revised there may still be minor errors in senior software engineering manager due to voice recognition software. Documentation for date of: 07/22/25 Subjective Subjective Interval history: Spoke at length with patient and nurse for updates. Per nurse this morning the patient accidentally removed her NG tube. Pt is s/p x1 day ex lap w/ right hemicolectomy and ilio-transverse colostomy, please see op note for details. In summary, resection of cecal mass proved exceptionally difficult, required removal of 2ft bowel and anastomosis of terminal ileum to transverse colon. Additionally extensive infiltration of malignancy was noted and this procedure was most likely palliative, pt will require extensive outpatient oncology follow-up. She was seen by oncology Dr. Solis this morning. No overnight events, no acute concerns today. Telemetry overnight showed sinus tachycardia to highest 110s. This morning the patient reports 8/10 abdominal pain, nausea, reports vomiting multiple times overnight, has not had a bowel movement since the procedure. She denies dysuria, chest pain, palpitations, SOB, diarrhea/constipation, fever/chills. Exam Vital Signs Temp Pulse Resp BP Pulse Ox O2 Del Method O2 Flow Rate 97.9 F 109 H 15 119/77 96 Nasal Cannula 2 07/22/25 08:00 07/22/25 08:00 07/22/25 08:00 07/22/25 08:00 07/22/25 08:00 07/22/25 08:00 07/22/25 08:00 Narrative Exam General: A/O x3, no acute distress Eyes: PERRL, EOMI. Anicteric, vision grossly intact. Ears: No ear pain, no ear discharge, Hearing grossly intact. Nose: No nasal discharge. Mouth/Throat: Moist mucous membranes, no redness, no lesions. Neck: Neck supple, non-tender, no cervical lymphadenopathy. Lungs: Clear to auscultation bilaterally, no rales/rhonchi/wheezes, no accessory muscle use. Cardio: Normal S1/S2, tachycardic, regular rhythm, no murmurs, no JVD Abdomen: Soft, TTP w/ intact bandaging from procedure, diminished bowel sounds, no guarding or rebound. Extremities: Symmetrical, no significant deformities, 2+ pitting edema of b/l LEs, non-tender, peripheral pulses presents. Skin: No rashes, no lesions, warm to touch. Neuro: No focal neurological deficits. motor and sensory intact Psych: Cooperative, appropriate mood and effect. Objective Labs 07/22/25 05:15 07/22/25 05:15 Labs: Laboratory Results - last 24 hr 07/21/25 07/21/25 07/22/25 05:39 08:55 05:15 WBC 36.6 H* RBC 3.41 L Hgb 9.8 L Hct 29.2 L MCV 86 MCH 28.7 MCHC 33.6 RDW Std Deviation 49.7 H Plt Count 384 D Neut % (Auto) 85 H Lymph % (Auto) 5 L [place] % (Auto) 4 Eos % (Auto) 1 Baso % (Auto) 0 Neut # (Auto) 31.1 H Lymph # (Auto) 1.9 [place] # (Auto) 1.4 H Eos # (Auto) 0.4 Baso # (Auto) 0.2 Immature Gran # (Auto) 1.68 H Absolute Nucleated RBC 0.00 Immature Gran % 5 H Nucleated RBC % 0 Smear Path Review Sent to Pathologist Sodium 141 Potassium 3.6 D Chloride 108 H Carbon Dioxide 18.5 L Anion Gap 15 BUN 20 Creatinine 1.2 D Estim Creat Clear Calc 36.3 L eGFR 50 L BUN/Creatinine Ratio 17 Glucose 134 H D Calculated Osmolality 285 Calcium 8.1 L Corrected Calcium 9.7 Total Bilirubin 0.4 AST 25 ALT 10 Alkaline Phosphatase 105 D Total Protein 4.7 L Albumin 2.0 L Globulin 2.7 Albumin/Globulin Ratio 0.7 L Carcinoembryonic Ag 32.7 H Blood Type O Positive Antibody Screen NEGATIVE Crossmatch See Detail Blood Bank Wristband ID Yes Quality Measures Quality Measures none Advance care planning discussed with:: patient Assessment & Plan Assessment Current Active Medications: Generic Name Dose Route Start Last Admin Trade Name Freq PRN Reason Stop Dose Admin Acetaminophen 650 mg 07/18/25 22:29 07/19/25 15:54 Acetaminophen 325 Mg Tablet PO 08/17/25 22:28 650 mg Q6H PRN Administration Fever >100.4 Piperacillin Sod/Tazobactam 100 mls @ 25 mls/hr 07/20/25 10:00 07/22/25 09:31 Sod 4.5 gm/ Sodium Chloride IV 07/27/25 09:59 25 mls/hr Q8H SHAWNA Administration Protocol Sodium Chloride 1,000 mls @ 125 mls/hr 07/21/25 15:04 07/22/25 09:31 Ns IV 08/20/25 15:03 125 mls/hr .Q8H SHAWNA Administration Morphine Sulfate 4 mg 07/21/25 15:04 07/22/25 10:00 Morphine Sulf Inj 4 Mg/Ml Vial IVP 07/26/25 15:03 4 mg Q4HR PRN Administration PAIN 7-10 Ondansetron HCl 4 mg 07/18/25 22:29 07/22/25 04:21 Ondansetron Inj 2 Mg/Ml Inj 2 Ml IVP 08/17/25 22:28 4 mg Q6H PRN Administration NAUSEA OR VOMITING Protocol Plan 65 yo F w/ PMH prediabetes, anemia presented with worsening of abdominal pain since yesterday, CT Scan shows Cecal Mass. Admitted for further workup/colonoscopy. #Cecal Mass unknown etiology, s/p resection day 1 #Leukocytosis #GNR Bacteremia S/p x1 day ex lap w/ right hemicolectomy and ilio-transverse colostomy Patient presented with worsening abdominal pain since day before admit. WBCs today increased to 36.6 from 33.2 yesterday, however this is likely to be expected as pt is s/p extensive surgery. CT Abdomen in ED showed mass appearing to rise from the cecum. CEA this admit elevated at 34.7. Pt underwent colonoscopy this admit which revealed likely malignant and obstructive mass of ascending colon w/ Dr. Mc, and received surgical intervention as per HPI. Please see op note for details. Blood cultures positive for GNR - GenSurg consulted Dr. Suggs, appreciate recs. Also GI Dr. Mc consulted, appreciate recs, plan as below - Acetaminophen/Zofran for symptomatic relief - S/p IV Rocephin/IV Flagyl (07/19/25 - 07/20/25) - Cont IV Zosyn 4.5gm (07/20-) d/t persistent leukocytosis and signs/sx of infection - Advance diet as tolerated per GI/surgery #UTI #SIRS Patient met SIRS criteria leukocytosis, tachycardia, fever of 101 on day of admit however lactic acid was normal. Repeat UA showed evidence of UTI, though pt has no genitourinary symptoms today. - FU cultures - Abx as above #Pericardial effusion Per CT ab/pelv in ED, 7mm effusion present. Possibly malignant in setting of large mass in the cecum/ colon. However pt is asymptomatic at this time, denies Chest pain, SOB, palpitations. - Consider Echo, however not currently indicated #Normocytic Anemia Acute on chronic, at this time most likely 2/2 cecal mass/possible malignancy. Iron panel this admit showed low Iron 5, TIBC 135, Iron Sat 3, Ferritin however normal at 135. Most likely mixed picture in setting of chronic disease with additional complication of volume loss in setting of malignancy and surgery. Pt however has no signs/sx of active bleed. - Follow CBCs in AM #Elevated BP (resolved) On admission BP noted to be 160/85, however pt has no HTN history and BP has been normal for the rest of this admit. - Monitor - FU outpt PCP Hospital management: Disposition: Manage recovery from extensive bowel resection. Diet: NPO Lines: peripheral IV DVT prophylaxis: SCDs CODE STATUS: full code ----- Plan discussed with attending physician Dr. Piper Neely, Medical Student [facility] Attending Provider Attestation/Addendum Likely from I have discussed and was present for the essential components of the history, physical examination, diagnosis, and treatment plan with the resident. I agree with the patient's care as documented by the resident and amended herein by me. Fernando Saldaña DO. Although this document has been carefully reviewed, there may still be some phonetic and other typographical errors. These errors are purely grammatical due to imperfections in the software program and should not be construed in any way to compromise the substance of the patient's medical care during this visit. Patient seen and evaluated this AM. Patient clinically doing well today, POD 1 from Exploratory laparotomy and right hemicolectomy and ilio transverse colostomy. Unfortunately patient did pull out her NG tube overnight excluded us from starting enteral feeds now however per surgery, we want to minimize fluid overload hence we will forego PPN and start TPN for a few days prior to starting enteral feeds., we did insert a central line today without issue. Dietitian has been consulted for recommendations, we will also continue Zosyn for now. Oncology has been consulted, biopsy results demonstrating invasive adenocarcinoma. Will continue to monitor closely while she is here.
--- NOTE | 2025-07-22 13:34 | ESCONSULT_ITS ---
RE: WILMAN ALCALA : 1960 DATE OF CONSULTATION: 07/21/2025 REFERRING PHYSICIAN: Dr Baljeet Castillo . REASON FOR CONSULTATION: 1. Obstructing mass in the ascending colon, status post surgery. Final pathology report is pending. 2. Leukocytosis. HISTORY OF PRESENT ILLNESS: Mrs. Alcala is a 65-year-old female with past medical history of prediabetes, came to the emergency room because of abdominal pain. She was having this vague abdominal pain off and on in nature since 02/2025. It got worse yesterday prior to admission accompanied with fever and chills. She mentioned that she had lost 20 pounds since 02/2025. She is having experienced off and on bloating and constipation for 5 months. She denied nausea, vomiting, melena or hematochezia. The patient had an EGD done by Dr. Mc, which showed an ulcerated completely obstructing large mass in the ascending colon. The mass was circumferential. Oozing was present and biopsy was taken. Later on, patient went to surgery today by Dr. Suggs. Final pathology report is pending. The patient has a NG tube and she cannot give a lot of information, so most of the information is gathered from the record. PAST MEDICAL HISTORY: Significant for prediabetes and anemia. She got blood transfused at the beginning of this year. PAST SURGICAL HISTORY: Cholecystectomy and 1 . FAMILY HISTORY: No history of cancer or blood disorder in the family. SOCIAL HISTORY: Occasional drinker. No smoking or use of illicit drugs. ALLERGIES: NOT KNOWN. PHYSICAL EXAMINATION: GENERAL: She is alert. VITAL SIGNS: She is afebrile. HEENT: Pupils are reactive to light and accommodation. Sclerae nonicteric. Conjunctivae pale. NECK: Supple. There is no JVD or palpable mass. LUNGS: Good air entry bilaterally with decreased breath sounds in the bases. HEART: Regular. ABDOMEN: Soft. No bowel sounds are present. EXTREMITIES: 3+ pedal pulses. There is no cyanosis. CENTRAL NERVOUS SYSTEM: The patient follows very simple commands. LABORATORY DATA: The patient's blood count today are WBC count 33.2, hemoglobin 9, hematocrit 26.6, MCV of 81, MCH of 27.7, and platelet count of 523,000. Potassium is 3, sodium was 139, chloride was 104, BUN is 11, creatinine is 0.6, magnesium is 2, total bilirubin is 0.4, alkaline phosphatase mildly elevated at 136, total protein is 5, and albumin is 2.1. The patient's CT scan of the abdomen showed a very large vascular mass in the right abdomen, which appeared to be rising from the cecum, most likely malignant neoplasm of the colon, 11 x 9.5 x 9.2 cm periaortic lymphadenopathy. Lymph nodes peripheral to the large tumor mass. PET/CT was advised. Ultrasound of the abdomen showed absent gallbladder. Normal common bile duct. Liver normal size. No focal liver lesion. ASSESSMENT AND PLAN: I agree with the present plan of treatment. The patient had leukocytosis mostly prior related to malignancy, which was ulcerated and we will wait for the final pathology report and also the staging of the disease. If it most probably radiographically look like malignant and if malignancy is proved, then patient will be needing chemotherapy. There is no role of radiation therapy to the ascending colon. No pathology report is available. The patient and family asked simple questions. They were answered to their satisfaction. I will follow this patient with you and write order regarding the clinical situation. I thank you, Dr. Saldaña for letting me participate in the care of this interesting patient. DT: 17:22:57 TT: 19:38:00 Ref: [id number] - TID: [id number] MTDD
--- NOTE | 2025-07-22 16:15 | PC.NURSE ---
Doctors inserting a central line at bedside. I was busy discharging two patients. Ysabel KNIGHT took over to help doctors at bedside and called procedural time out. Doctors put a do not enter sign on door I cannot go inside room to witness procedure.
--- NOTE | 2025-07-22 17:21 | XR_ITS ---
EXAMINATION: AP chest single view TECHNIQUE: AP portable semiupright chest single view Date and time: July 22, 2025, 1733 hours, comparison July 18, 2025 INDICATIONS: Post central line placement. FINDINGS: Left internal jugular central line tip projects at junction of inferior vena cava and right atrium Mild prominence left ventricle No pneumothorax Mild opacity at the right lung base and left upper lobe IMPRESSION: Consider retracting the central line 4 cm
--- NOTE | 2025-07-22 17:40 | ESOP_ITS ---
PROCEDURES: Procedure Date / Time 07/22/25 1600 Central Line Placement Left IJ: Informed consent obtained: from patient Time out done, and the following verified: correct patient, side and site, procedure, patient position and implants and/or equipment Patient placed on monitor/pulse ox: Yes Procedure comment: A time out was performed at 1600. My hands were washed immediately prior to the procedure. I wore a surgical cap, mask with protective eyewear, full gown and sterile gloves throughout the procedure. The patient was placed in Trendelenburg position. First right chest region was prepped using chlorhexidine scrub and draped in sterile fashion using a full drape and sterile probe cover and sterile gel employed. The medial and lateral heads of the sternocleidomastoid muscle were identified as was the carotid pulse. The Internal Jugular vein was identified using the ultrasound. Anesthesia was achie talia over the vein using 1% lidocaine. Using real-time out of plane guidance, the introducer needle was inserted into the Internal Jugular vein under direct ultrasound visualization. Arterial blood was withdrawn therefore reattempted on L side. Left side was prepped in the same fashion as stated previously with venous blood withdrawn. The syringe was removed and a guidewire was advanced into the introducer needle. The guidewire was visualized in the Internal Jugular Vein by ultrasound. A small incision was made at the skin surface with a scalpel and the introducer needle was exchanged for a dilator over the guidewire. After appropriate dilation was obtained, the dilator was exchanged over the wire for a central venous catheter. The wire was removed and the catheter was in place. A sterile sorbaview shield was placed over the catheter at the insertion site. The patient tolerated the procedure without any hemodynamic compromise. At time of procedure completion, all ports aspirated and flushed properly. Post-procedure chest x-ray is pending at this time.
--- NOTE | 2025-07-22 18:09 | ESPR_ITS ---
RE: WILMAN ALCALA : 1960 DATE OF SERVICE: 07/22/2025 SUBJECTIVE: Ms. Alcala is a 65-year-old female who underwent exploratory laparotomy and right hemicolectomy and ileotransverse colostomy yesterday by Dr. Lujan. Final pathology report is pending. The mass was in enlarged ascending colon. It attached to the sigmoid colon. She had a right hemicolectomy and ileotransverse anastomosis. She is alert. She is afebrile, eating ice. She is not in any apparent distress. PHYSICAL EXAMINATION: Vital Signs: She is afebrile. Vitals stable. HEENT: Pupils are reactive to light and accommodation. Sclerae nonicteric. Conjunctiva was pale. Neck: Supple. No JVD or palpable masses. Lungs: There is good air entry bilaterally. Clear to auscultation. There are decreased breath sounds at the bases because she is reluctant to take a deep breath. Heart: Regular. Abdomen: Soft. Bowel sounds are present. Extremities: 3+ pulses. There is no cyanosis. Central Nervous System: The patient follows simple commands. PLAN AND RECOMMENDATIONS: Blood work today: WBC 36.6, hemoglobin 9.8, hematocrit 29.2, platelet count is 384,000. Her CEA done today is 32.7. I did mention to the patient that she will be needing chemotherapy, but once we have the final pathology report available and the staging is done. The patient did ask a simple question in the presence of her son and they were all answered to her satisfaction. I will continue to follow this patient with you and I ordered according to clinical situation. DT: 17:27:29 TT: 17:55:00 Ref: [id number] - TID: [id number] MTDD
--- NOTE | 2025-07-22 18:25 | PD.SURPROG ---
Documentation for date of: 07/22/25 Subjective Subjective Brief History: History presents revealed that the patient has been having some chronic pain in the lower abdomen since last February. Patient denies any history of nausea or vomiting or change in the bowel habits. Patient denies any history of blood in the stools. She has however lost about 20 pounds and has not been feeling well. She is also weak. She denies any other major medical illness. She came to the emergency room with with increasing pain. Narrative: While the patient is feeling well other than some abdominal pain after removal of her large tumor Exam Vital Signs Temp Pulse Resp BP Pulse Ox O2 Del Method O2 Flow Rate 97.5 F 95 16 125/77 92 L Nasal Cannula 2 07/22/25 16:00 07/22/25 16:00 07/22/25 16:00 07/22/25 16:00 07/22/25 16:00 07/22/25 16:00 07/22/25 16:00 Your vital signs are normal Routine Abdominal Exam Comments: Abdominal examination is unremarkable Assessment & Plan Assessment Additional comments: Impression: Status post resection of right colon with a large tumor Plan Plan: Patient was found to have small bowel obstruction due to the large tumor in the ascending colon and cecal region. I saw considerable amount of dilated small bowel loops. She may not be therefore ready for oral feedings. She still having nausea and enteral feeding may be difficult. I strongly suggest we start her on TPN for a few days and then transition over to enteral feeding when the GI tract is available. Patient has a considerable negative nitrogen balance with malnutrition and therefore immediate calorie infusion will be beneficial. I have discussed it with the dietitian who is going to help for the parenteral nutrition PROCEDURES: Procedures Exploratory laparotomy and right hemicolectomy and ilio transverse colostomy
[2025-07-22 19:03] LABS: Triglycerides 136 mg/dL (30-150)
--- NOTE | 2025-07-22 19:51 | ESPR_ITS ---
Documentation for date of: 07/22/25 Subjective Subjective Interval history: Rising WBC count at 36.6 hemoglobin hematocrit 9.8 and 29.2 Exam Vital Signs Temp Pulse Resp BP Pulse Ox O2 Del Method O2 Flow Rate 97.5 F 95 16 125/77 92 L Nasal Cannula 2 07/22/25 16:00 07/22/25 16:00 07/22/25 16:00 07/22/25 16:00 07/22/25 16:00 07/22/25 16:00 07/22/25 16:00 Objective Labs 07/22/25 05:15 07/22/25 05:15 Labs: Laboratory Results - last 24 hr 07/21/25 07/22/25 07/22/25 08:55 05:15 18:29 WBC 36.6 H* RBC 3.41 L Hgb 9.8 L Hct 29.2 L MCV 86 MCH 28.7 MCHC 33.6 RDW Std Deviation 49.7 H Plt Count 384 D Neut % (Auto) 85 H Lymph % (Auto) 5 L [place] % (Auto) 4 Eos % (Auto) 1 Baso % (Auto) 0 Neut # (Auto) 31.1 H Lymph # (Auto) 1.9 [place] # (Auto) 1.4 H Eos # (Auto) 0.4 Baso # (Auto) 0.2 Immature Gran # (Auto) 1.68 H Absolute Nucleated RBC 0.00 Immature Gran % 5 H Nucleated RBC % 0 Smear Path Review Sent to Pathologist Sodium 141 Potassium 3.6 D Chloride 108 H Carbon Dioxide 18.5 L Anion Gap 15 BUN 20 Creatinine 1.2 D Estim Creat Clear Calc 36.3 L eGFR 50 L BUN/Creatinine Ratio 17 Glucose 134 H D Calculated Osmolality 285 Calcium 8.1 L Corrected Calcium 9.7 Total Bilirubin 0.4 AST 25 ALT 10 Alkaline Phosphatase 105 D Total Protein 4.7 L Albumin 2.0 L Globulin 2.7 Albumin/Globulin Ratio 0.7 L Triglycerides 136 Blood Type O Positive Antibody Screen NEGATIVE Crossmatch See Detail Blood Bank Wristband ID Yes Impressions Impression: Large ascending colon cecal adenocarcinoma s/p resection and ilio transverse anastomosis Leukocytosis Continue current management Assessment & Plan A&P Narrative 1. Large ascending colon mass, suspected cancer, attached to sigmoid colon status post right hemicolectomy ileotransverse anastomosis. 2. Significant leukocytosis pericardial effusion noted on CT UTI, appearing comfortable this a.m. with supportive care Postop day 1. 3. Will check pathology and follow patient upon discharge at the cancer treatment center. 4 Thank you very much for allowing me to evaluate this patient. Time Spent With Patient Time: Total time spent is greater than 50% in coordination of care (as documented) at patient's floor/unit and/or counseling patient:
--- NOTE | 2025-07-22 22:27 | PC.NURSE ---
Dr. Short made aware of the result of chest X-ray for post PICC line insertion. Per , she'll let the day team know.
[2025-07-23] VITALS (8 sets, daily range): BP systolic 98–152; BP diastolic 62–99; PULSE 71–110; RESP 16–96; TEMP 36.1–36.7; O2SAT 92–96
[2025-07-23] MEDS: SODIUM CHLORIDE 0.9% 1000 ML 1,000 ML 125 ML IV ×3 (02:03→20:30)
[2025-07-23] MEDS: PIPER/TAZO INJ 4.5 GM in SODIUM CHLORIDE 0.9% (POP) 100 ML IV ×3 (02:04→22:13)
[2025-07-23] MEDS: MORPHINE SULF INJ 4 MG/ML VIAL IVP ×4 (05:32→20:22)
[2025-07-23 06:23] LABS: Alanine Aminotransferase 10 U/L (10-49); Albumin, Serum 1.9 gm/dL (3.4-4.8); Albumin/Globulin Ratio 0.7 (1.2-2.2); Alkaline Phosphatase 104 U/L (46-116); Anion Gap 15 (7-16); Aspartate Amino Transferase 26 U/L (0-34); BUN/Creatinine Ratio 20 Ratio (12-20); Bilirubin,Total 0.2 mg/dL (0.3-1.2); Blood Urea Nitrogen 18 mg/dL (9-23); Calcium 7.8 mg/dL (8.3-10.6); Calcium (Corrected) 9.5 mg/dL (8.5-10.1); Carbon Dioxide 19.4 mMol/L (20.0-31.0); Chloride 111 mMol/L (98-107); Creatinine (Component) 0.9 mg/dL (0.6-1.3); Estimated Creatinine Clearance 48.3 mL/min (>60); Globulin 2.6 gm/dL (2.3-3.5); Glucose 112 mg/dL (74-106); Magnesium 2.2 mg/dL (1.6-2.6); Osmolality,Calculated 291 (275-295); Phosphorous 2.7 mg/dL (2.4-5.1); Potassium 4.1 mMol/L (3.4-5.1); Sodium 145 mMol/L (136-145); Total Protein 4.5 gm/dL (5.7-8.2); eGFR > 60 See Note
[2025-07-23 07:27] LABS: Basophils # (Auto) 0.1 Thou/mm3 (0.0-0.2); Basophils % (Auto) 0 % (0-2.5); Eosinophils # (Auto) 0.0 Thou/mm3 (0.0-0.5); Eosinophils % (Auto) 0 % (0-10); Hematocrit 24.6 % (36.0-46.0); Immature Granulocytes Auto 1.17 Thou/mm3 (0.00-0.00); Lymphocytes # (Auto) 1.4 Thou/mm3 (1.0-4.8); Lymphocytes % (Auto) 6 % (10-50); Mean Corpuscular HGB Conc 34.1 g/dl (31.0-37.0); Mean Corpuscular Hemoglobin 28.5 pg (25.0-35.0); Mean Corpuscular Volume 83 fL (80-100); Monocytes # (Auto) 1.2 Thou/mm3 (0.0-0.8); Monocytes % (Auto) 5 % (0-12); Neutrophils # (Auto) 20.5 Thou/mm3 (1.8-7.7); Neutrophils % (Auto) 84 % (37-80); Nucleated Red Blood Cell # 0.04 Thou/mm3 (0.00-0.00); Nucleated Red Blood Cell % 0 /100 WBC (0); Platelet Count 300 Thou/mm3 (140-440); RDW Standard Deviation 49.4 fL (36.4-46.3); Red Blood Count 2.95 Miln/mm3 (4.00-5.20); White Blood Count 24.4 Thou/mm3 (3.6-11.0)
[2025-07-23 07:47] LABS: Hemoglobin 8.4 g/dL (12.0-16.0)
--- NOTE | 2025-07-23 09:27 | ESPR_ITS ---
<Statement entered by Roney Ugalde MD - 07/23/25 11:51> Patient was seen and evaluated at bedside this morning. No acute overnight events. Left IJ was pulled back and we sutured with Po chest x-ray showing tube and junction of inferior vena cava and right atrium. Will start TPN. Patient's WBC have downtrended. Patient was also started on clear liquid diet by general surgeon. Will see if patient tolerates p.o. intake. General: A/O x3, no acute distress, ill appearing Eyes: PERRL, EOMI. Anicteric, vision grossly intact. Ears: No ear pain, no ear discharge, Hearing grossly intact. Nose: No nasal discharge. Mouth/Throat: Moist mucous membranes, no redness, no lesions. Neck: Neck supple, non-tender, no cervical lymphadenopathy. LIJ in place. Lungs: Clear YADY to auscultation and percussion, No accessory muscle use. Cardio: Normal S1/S2, regular rhythm, no murmurs, no JVD or carotid bruits. Abdomen: Soft, tender with palpation, no palpable masses, peristalsis present, no guarding or rebound. Abdominal binder in place. Extremities: Symmetrical, no significant deformities, 2+ edema on feet improving slightly, non-tender, peripheral pulses presents. Skin: No rashes, no lesions, warm to touch. Neuro: No focal neurological deficits. Psych: Cooperative, appropriate mood and effect. I have reviewed the note and agree with the medical student's assessment & plan with exceptions as below. I have personally reviewed labs, imaging, home meds/prior records, examined the patient, formulated and discussed management plan with my attending Roney Ugalde PGY2 Disclaimer: Even though this this note was dictated by speech recognition and even though it was carefully revised there may still be minor errors in marketing programs specialist due to voice recognition software. Documentation for date of: 07/23/25 Subjective Subjective Interval history: Spoke at length with patient and nurse for updates. Pt is s/p x2 days R hemicolectomy with iliotransverse anastamosis. Overnight no acute events. Telemetry showed sinus tachycardia through the night. Central Line placement was completed yesterday 07/22/25, this morning it was retracted and replaced by 4cm. Plan to begin TPN today. This morning she endorses mild diffuse abdominal tenderness, though she denies dysuria, SOB, chest pain, palpitations, n/v/d, constipation. Exam Vital Signs Temp Pulse Resp BP Pulse Ox O2 Del Method O2 Flow Rate 97.4 F 105 H 18 131/73 H 96 Room Air 2 07/23/25 08:00 07/23/25 08:00 07/23/25 08:00 07/23/25 08:00 07/23/25 08:00 07/23/25 08:00 07/22/25 16:00 Narrative Exam General: A/O x3, no acute distress Eyes: PERRL, EOMI. Anicteric, vision grossly intact. Ears: No ear pain, no ear discharge, Hearing grossly intact. Nose: No nasal discharge. Mouth/Throat: Moist mucous membranes, no redness, no lesions. Neck: Neck supple, non-tender, no cervical lymphadenopathy. Lungs: Clear to auscultation bilaterally, no rales/rhonchi/wheezes, no accessory muscle use. Cardio: Normal S1/S2, tachycardic, regular rhythm, no murmurs, no JVD Abdomen: Soft, TTP w/ intact bandaging from procedure, normoactive to hyperactive bowel sounds, no guarding or rebound. Extremities: Symmetrical, no significant deformities, 2+ pitting edema of b/l LEs, non-tender, peripheral pulses presents. Skin: No rashes, no lesions, warm to touch. Neuro: No focal neurological deficits. motor and sensory intact Psych: Cooperative, appropriate mood and effect. Objective Labs 07/24/25 04:27 07/24/25 04:27 Labs: Laboratory Results - last 24 hr 07/22/25 07/23/25 07/23/25 18:29 05:30 06:30 WBC 24.4 H D RBC 2.95 L Hgb 8.4 L Hct 24.6 L MCV 83 MCH 28.5 MCHC 34.1 RDW Std Deviation 49.4 H Plt Count 300 D Neut % (Auto) 84 H Lymph % (Auto) 6 L [place] % (Auto) 5 Eos % (Auto) 0 Baso % (Auto) 0 Neut # (Auto) 20.5 H Lymph # (Auto) 1.4 [place] # (Auto) 1.2 H Eos # (Auto) 0.0 Baso # (Auto) 0.1 Immature Gran # (Auto) 1.17 H Absolute Nucleated RBC 0.04 H Immature Gran % 5 H Nucleated RBC % 0 Sodium 145 Potassium 4.1 D Chloride 111 H Carbon Dioxide 19.4 L Anion Gap 15 BUN 18 Creatinine 0.9 Estim Creat Clear Calc 48.3 L eGFR > 60 BUN/Creatinine Ratio 20 Glucose 112 H Calculated Osmolality 291 Calcium 7.8 L Corrected Calcium 9.5 Phosphorus 2.7 Magnesium 2.2 Total Bilirubin 0.2 L AST 26 ALT 10 Alkaline Phosphatase 104 Total Protein 4.5 L Albumin 1.9 L Globulin 2.6 Albumin/Globulin Ratio 0.7 L Triglycerides 136 Quality Measures Quality Measures none Advance care planning discussed with:: patient Assessment & Plan Assessment Current Active Medications: Generic Name Dose Route Start Last Admin Trade Name Freq PRN Reason Stop Dose Admin Acetaminophen 650 mg 07/18/25 22:29 07/19/25 15:54 Acetaminophen 325 Mg Tablet PO 08/17/25 22:28 650 mg Q6H PRN Administration Fever >100.4 Sodium Chloride 1,000 mls @ 125 mls/hr 07/21/25 15:04 07/23/25 02:03 Ns IV 08/20/25 15:03 125 mls/hr .Q8H SHAWNA Administration Fat Emulsion Intravenous 500 mls @ 32 mls/hr 07/22/25 18:00 Intralipid 20% Iv IV 08/21/25 17:59 On Hold: 07/22/25 18:00 [facility] Comment: CALL PHARMACY IF CENTRAL LINE IS READY Potassium Acetate 40 meq/ 1,030 mls @ 30 mls/hr 07/22/25 18:00 Multivitamins/Minerals 10 ml/ IV 08/21/25 17:59 Amino Acids/Electrolytes QDAY@1800 [facility] On Hold: 07/22/25 18:00 Comment: NO CENTRAL LINE Piperacillin Sod/Tazobactam 100 mls @ 25 mls/hr 07/23/25 14:00 Sod 4.5 gm/ Sodium Chloride IV 07/27/25 13:59 Q8HR [facility] Protocol Morphine Sulfate 4 mg 07/21/25 15:04 07/23/25 05:32 Morphine Sulf Inj 4 Mg/Ml Vial IVP 07/26/25 15:03 4 mg Q4HR PRN Administration PAIN 7-10 Ondansetron HCl 4 mg 07/18/25 22:29 07/22/25 04:21 Ondansetron Inj 2 Mg/Ml Inj 2 Ml IVP 08/17/25 22:28 4 mg Q6H PRN Administration NAUSEA OR VOMITING Protocol Thiamine HCl 100 mg 07/23/25 09:00 Thiamine Inj 100 Mg/Ml Vial 2 Ml IVP 08/22/25 08:59 QDAY SHAWNA Plan 65 yo F w/ PMH prediabetes, anemia presented with worsening of abdominal pain since yesterday, CT Scan shows Cecal Mass. Admitted for further workup/colonoscopy. #Cecal Mass unknown etiology, s/p resection day 1 #Leukocytosis #GNR Bacteremia S/p x2 day ex lap w/ right hemicolectomy and ilio-transverse colostomy Patient presented with worsening abdominal pain since day before admit. WBCs today decreased significantly to 24.[address] Abdomen in ED showed mass appearing to rise from the cecum. CEA this admit elevated at 34.7. Pt underwent colonoscopy this admit which revealed likely malignant and obstructive mass of ascending colon w/ Dr. Mc, and received surgical intervention as per HPI. Please see op note for details. Blood cultures positive for GNR - [facility] Dr. Suggs, GI Dr. Mc, Oncology Dr. Weir following. Dr. Weir plans to interpret pathology of mass as available and follow up outpatient. - Acetaminophen/Zofran for symptomatic relief - S/p IV Rocephin/IV Flagyl (07/19/25 - 07/20/25) - Cont IV Zosyn 4.5gm (07/20-) d/t persistent leukocytosis that is improving - Per [facility] recommendations bowel rest is indicated, as such Central Line was placed 07/22/25 (please see Op Note for details) and it was further retracted and replaced this morning 07/23/25. Plan to begin TPN this AM. #UTI (likely resolved) #SIRS Patient met SIRS criteria leukocytosis, tachycardia, fever of 101 on day of admit however lactic acid was normal. Repeat UA showed evidence of UTI, though pt has no genitourinary symptoms today. - Cultures have grown GNR/Pseudomonas however with very small CFUs - Abx as above #Pericardial effusion Per CT ab/pelv in ED, 7mm effusion present. Possibly malignant in setting of large mass in the cecum/ colon. However pt is asymptomatic at this time, denies chest pain, SOB, palpitations. - Consider Echo, however not currently indicated #Normocytic Anemia Acute on chronic, at this time most likely 2/2 cecal mass/possible malignancy. Iron panel this admit showed low Iron 5, TIBC 135, Iron Sat 3, Ferritin however normal at 135. Most likely mixed picture in setting of chronic disease with additional complication of volume loss in setting of malignancy and surgery. Hgb today 8.4 Pt however has no signs/sx of active bleed. - Follow CBCs in AM #Elevated BP (resolved) On admission BP noted to be 160/85, however pt has no HTN history and BP has been normal for the rest of this admit. - Monitor - FU outpt PCP Hospital management: Disposition: Manage recovery from extensive bowel resection. Diet: TPN Lines: peripheral IV DVT prophylaxis: SCDs CODE STATUS: full code ----- Plan discussed with attending physician Dr. Piper Neely, Medical Student [facility] Attending Provider Attestation/Addendum I have discussed and was present for the essential components of the history, physical examination, diagnosis, and treatment plan with the resident. I agree with the patient's care as documented by the resident and amended herein by me. Fernando Saldaña DO. Although this document has been carefully reviewed, there may still be some phonetic and other typographical errors. These errors are purely grammatical due to imperfections in the software program and should not be construed in any way to compromise the substance of the patient's medical care during this visit.
--- NOTE | 2025-07-23 09:54 | XR_ITS ---
EXAMINATION: AP chest single view TECHNIQUE: AP portable semiupright chest single view Date and time: July 23, 2025, 1003 hours, comparison July 22, 2025 INDICATIONS: Post central line placement FINDINGS: Bibasilar pneumonia. Mild vascular congestion. Left internal jugular central line tip at junction inferior vena cava and right atrium No pneumothorax IMPRESSION: Mild bibasilar pneumonia. Mild vascular congestion
[2025-07-23] MEDS: THIAMINE INJ 100 MG/ML VIAL 2 ML IVP (10:05)
--- NOTE | 2025-07-23 10:08 | PC.NURSE ---
Hospitalist team and Dr Suggs at bedside reading xray regarding central line. Per both, may start ordered TPN
--- NOTE | 2025-07-23 10:54 | PC.NURSE ---
TPN needs to be mixed by pharmacy, Pharmacy aware MD's requesting to be administered as soon as possible.
--- NOTE | 2025-07-23 11:08 | PC.SS ---
SS followed up with patient and son, Dionisio at bedside to verify d/c plans. Patient and son state she will be either going home or to another family members home. She will be with some family member post discharge. They are till discussing. Patient's PCP is at [facility] with Ary Short NP. Last appt was 2 weeks ago. F/u appt. on the . Family is open to HH following if needed.
--- NOTE | 2025-07-23 12:13 | PD.SURPROG ---
Documentation for date of: 07/23/25 Subjective Subjective Brief History: History presents revealed that the patient has been having some chronic pain in the lower abdomen since last February. Patient denies any history of nausea or vomiting or change in the bowel habits. Patient denies any history of blood in the stools. She has however lost about 20 pounds and has not been feeling well. She is also weak. She denies any other major medical illness. She came to the emergency room with with increasing pain. Narrative: The patient is getting started on TPN today because of marked malnutrition. She may not take enough orally for a few days. She is not nauseated and wants to try some liquid Exam Vital Signs Temp Pulse Resp BP Pulse Ox O2 Del Method O2 Flow Rate 97.4 F 105 H 18 131/73 H 96 Room Air 2 07/23/25 08:00 07/23/25 08:00 07/23/25 08:00 07/23/25 08:00 07/23/25 08:00 07/23/25 08:00 07/22/25 16:00 Her vital signs are normal other than tachycardia Routine Abdominal Exam Comments: Abdominal examination showed hypoactive bowel sounds Assessment & Plan Assessment Additional comments: Impression: Stable postoperative course following right hemicolectomy Plan Plan: Her nutrition is the major issue now which will help her heal the anastomosis. We will start her on TPN today. PROCEDURES: Procedures Exploratory laparotomy and right hemicolectomy and ilio transverse colostomy
[2025-07-23] MEDS: MULTIVITAMIN IV (12:15)
[2025-07-23] MEDS: MAGNESIUM SULF IV (12:15)
[2025-07-23] MEDS: POTASSIUM PHOS IV (12:15)
[2025-07-23] MEDS: [UNRECOGNIZED DRUG - OTHER] IV (12:15)
--- NOTE | 2025-07-23 17:56 | ESPR_ITS ---
RE: WILMAN ALCALA : 1960 DATE OF SERVICE: 07/23/2025 SUBJECTIVE: Ms. Alcala is a 65-year-old female who was recently diagnosed with adenocarcinoma of the ascending colon. Final pathology report is pending along with the staging. She is having a clear liquid diet. She is alert. She has no other complaints except feeling a little bit weak. She denies any nausea and vomiting. PHYSICAL EXAMINATION: General: She is alert. Vital Signs: She is afebrile. Vitals stable. HEENT: Pupils are reactive to light and accommodation. Sclerae nonicteric. Conjunctiva is pale. Neck: Supple. There is no JVD or palpable mass. Lungs: There is good air entry bilaterally. They are clear to auscultation. There is decreased breath sound at the bases. Heart: Regular. Abdomen: Soft. Bowel sounds are present. Extremities: There is no cyanosis or edema. Central Nervous System: The patient moves her extremities and follows simple commands. PLAN AND RECOMMENDATIONS: Her blood work today, WBC dropped down to 24.4, hemoglobin is 8.4, hematocrit 24.6 with normal indices, platelet count is 300,000. A chest x-ray done today showed a mild bibasilar pneumonia, mild vascular congestion. I did encourage the patient to get out of the bed and move around while she is here, she may benefit from physical therapy. I requested the patient that she should see me in 10-15 days and p.r.n. after she is discharged from the hospital, so I can discuss with her about the options of the treatment. DT: 17:15:21 TT: 17:55:00 Ref: [id number] - TID: [id number] [facility]
--- NOTE | 2025-07-23 18:33 | PD.IMPROG ---
Documentation for date of: 07/23/25 Subjective Subjective Interval history: Patient evaluated Tolerating clear liquid diet Oncology consult appreciated Exam Vital Signs Temp Pulse Resp BP Pulse Ox O2 Del Method O2 Flow Rate 97.2 F 107 H 18 152/99 H 92 L Room Air 2 07/23/25 16:00 07/23/25 16:00 07/23/25 16:00 07/23/25 16:00 07/23/25 16:00 07/23/25 16:00 07/22/25 16:00 Objective Labs 07/23/25 06:30 07/23/25 05:30 Labs: Laboratory Results - last 24 hr 07/22/25 07/23/25 07/23/25 18:29 05:30 06:30 WBC 24.4 H D RBC 2.95 L Hgb 8.4 L Hct 24.6 L MCV 83 MCH 28.5 MCHC 34.1 RDW Std Deviation 49.4 H Plt Count 300 D Neut % (Auto) 84 H Lymph % (Auto) 6 L [place] % (Auto) 5 Eos % (Auto) 0 Baso % (Auto) 0 Neut # (Auto) 20.5 H Lymph # (Auto) 1.4 [place] # (Auto) 1.2 H Eos # (Auto) 0.0 Baso # (Auto) 0.1 Immature Gran # (Auto) 1.17 H Absolute Nucleated RBC 0.04 H Immature Gran % 5 H Nucleated RBC % 0 Sodium 145 Potassium 4.1 D Chloride 111 H Carbon Dioxide 19.4 L Anion Gap 15 BUN 18 Creatinine 0.9 Estim Creat Clear Calc 48.3 L eGFR > 60 BUN/Creatinine Ratio 20 Glucose 112 H Calculated Osmolality 291 Calcium 7.8 L Corrected Calcium 9.5 Phosphorus 2.7 Magnesium 2.2 Total Bilirubin 0.2 L AST 26 ALT 10 Alkaline Phosphatase 104 Total Protein 4.5 L Albumin 1.9 L Globulin 2.6 Albumin/Globulin Ratio 0.7 L Triglycerides 136 Impressions Impression: Locally invasive well-differentiated adenocarcinoma ascending colon requiring surgical intervention Agree with the use of PPN Encourage ambulation Awaiting recommendations from the oncology team Assessment & Plan A&P Narrative 1. Large ascending colon mass, suspected cancer, attached to sigmoid colon status post right hemicolectomy ileotransverse anastomosis. 2. Significant leukocytosis pericardial effusion noted on CT UTI, appearing comfortable this a.m. with supportive care Postop day 1. 3. Will check pathology and follow patient upon discharge at the cancer treatment center. 4 Thank you very much for allowing me to evaluate this patient. Time Spent With Patient Time: Total time spent is greater than 50% in coordination of care (as documented) at patient's floor/unit and/or counseling patient:
[2025-07-24] VITALS (11 sets, daily range): BP systolic 118–157; BP diastolic 78–98; PULSE 90–108; RESP 12–94; TEMP 36.2–37.1; O2SAT 92–97; BMI 30.9
[2025-07-24] MEDS: MORPHINE SULF INJ 4 MG/ML VIAL IVP ×3 (03:29→16:47)
[2025-07-24] MEDS: SODIUM CHLORIDE 0.9% 1000 ML 1,000 ML 125 ML IV (04:23)
[2025-07-24] MEDS: PIPER/TAZO INJ 4.5 GM in SODIUM CHLORIDE 0.9% (POP) 100 ML IV ×3 (05:35→21:41)
[2025-07-24 05:40] LABS: Basophils # (Auto) 0.1 Thou/mm3 (0.0-0.2); Basophils % (Auto) 0 % (0-2.5); Eosinophils # (Auto) 0.1 Thou/mm3 (0.0-0.5); Eosinophils % (Auto) 1 % (0-10); Hematocrit 25.3 % (36.0-46.0); Hemoglobin 8.5 g/dL (12.0-16.0); Immature Granulocytes Auto 1.19 Thou/mm3 (0.00-0.00); Lymphocytes # (Auto) 1.6 Thou/mm3 (1.0-4.8); Lymphocytes % (Auto) 7 % (10-50); Mean Corpuscular HGB Conc 33.6 g/dl (31.0-37.0); Mean Corpuscular Hemoglobin 28.6 pg (25.0-35.0); Mean Corpuscular Volume 85 fL (80-100); Monocytes # (Auto) 0.8 Thou/mm3 (0.0-0.8); Monocytes % (Auto) 3 % (0-12); Neutrophils # (Auto) 19.4 Thou/mm3 (1.8-7.7); Neutrophils % (Auto) 84 % (37-80); Nucleated Red Blood Cell # 0.09 Thou/mm3 (0.00-0.00); Nucleated Red Blood Cell % 0 /100 WBC (0); Platelet Count 328 Thou/mm3 (140-440); RDW Standard Deviation 51.2 fL (36.4-46.3); Red Blood Count 2.97 Miln/mm3 (4.00-5.20); White Blood Count 23.1 Thou/mm3 (3.6-11.0)
[2025-07-24 06:18] LABS: Alanine Aminotransferase 8 U/L (10-49); Albumin, Serum 2.0 gm/dL (3.4-4.8); Albumin/Globulin Ratio 0.7 (1.2-2.2); Alkaline Phosphatase 139 U/L (46-116); Anion Gap 10 (7-16); Aspartate Amino Transferase 14 U/L (0-34); BUN/Creatinine Ratio 30 Ratio (12-20); Bilirubin,Total 0.3 mg/dL (0.3-1.2); Blood Urea Nitrogen 15 mg/dL (9-23); Calcium 7.4 mg/dL (8.3-10.6); Calcium (Corrected) 9.0 mg/dL (8.5-10.1); Carbon Dioxide 24.4 mMol/L (20.0-31.0); Chloride 110 mMol/L (98-107); Creatinine (Component) 0.5 mg/dL (0.6-1.3); Estimated Creatinine Clearance 87.0 mL/min (>60); Globulin 2.7 gm/dL (2.3-3.5); Glucose 183 mg/dL (74-106); Magnesium 2.0 mg/dL (1.6-2.6); Osmolality,Calculated 292 (275-295); Phosphorous 1.4 mg/dL (2.4-5.1); Potassium 2.9 mMol/L (3.4-5.1); Sodium 144 mMol/L (136-145); Total Protein 4.7 gm/dL (5.7-8.2); eGFR > 60 See Note
[2025-07-24] MEDS: POTASSIUM CHL 10 mEq IVPB 10 MEQ/100 ML BAG 100 MEQ IV ×3 (07:53→11:27)
[2025-07-24] MEDS: POTASSIUM PHOS 22.5 MMOL in SODIUM CHLORIDE 0.9% 500 ML 500 ML 82.778 MMOL IV (07:59)
--- NOTE | 2025-07-24 08:24 | XR_ITS ---
Examination: Abdomen AP single view Technique: AP portable supine abdomen, single view Exam date and time: July 24, 2025, 0851 hours INDICATIONS: Abdominal distention today FINDINGS: Air distended stomach and air distended small bowel loops No free air Prominent osteopenia IMPRESSION: Small bowel obstruction Consider Gastrografin small bowel series follow-up
--- NOTE | 2025-07-24 08:24 | XR_ITS ---
EXAMINATION: AP chest single view TECHNIQUE: AP portable upright chest single view Date and time: July 24, 2025, 0847 hours, comparison July 23, 2025 INDICATIONS: Shortness of breath this week. FINDINGS: Significant pneumonia at the lung bases Mild enlargement cardiac contour with moderate vascular congestion. Left internal jugular central line tip right atrium IMPRESSION: Significant bibasilar pneumonia. Mild heart failure.
[2025-07-24] MEDS: THIAMINE INJ 100 MG/ML VIAL 2 ML IVP (09:49)
[2025-07-24] MEDS: ONDANSETRON INJ 2 MG/ML INJ 2 ML 4 MG IVP (10:29)
--- NOTE | 2025-07-24 11:26 | PC.DIETICIAN ---
Dietitian recommendation: *Hold off on advancing CPN to goal of 60ml/hr until electrolytes stabilize. Potassium and Phos dropped. Tmrw if labs improved, increase CPN to 45ml/hr x 8 hrs then goal of 60ml/hr. RD to re-eval on Saturday. Thank you
[2025-07-24] MEDS: FUROSEMIDE INJ 10 MG/ML 4ML VIAL 40 MG IVP (11:28)
[2025-07-24] MEDS: POTASSIUM ACET IV (11:34)
[2025-07-24] MEDS: [UNRECOGNIZED DRUG - OTHER] IV (11:34)
[2025-07-24] MEDS: MULTIVITAMIN IV (11:34)
[2025-07-24] MEDS: POTASSIUM PHOS IV (11:34)
--- NOTE | 2025-07-24 12:31 | ESPR_ITS ---
<Statement entered by Roney Ugalde MD - 07/24/25 16:30> Patient was seen and evaluated at bedside this morning. No acute overnight events. This morning the patient was some more pain in her abdomen somewhat distended therefore abdomen x-ray and chest x-ray were ordered. Patient's abdomen x-ray that showed significant distention of the stomach therefore NG tube was placed to low intermittent suction. Patient had bowel movement last night therefore SBO less likely. General surgery was updated and he was okay with NG to low intermittent suction and patient was placed on NPO. Fluids stopped due to fluid overload and lasix 40mg x1 given. Blood cx grew E.coli. Otherwise no other complaints at this time. General: A/O x3, no acute distress, ill appearing Eyes: PERRL, EOMI. Anicteric, vision grossly intact. Ears: No ear pain, no ear discharge, Hearing grossly intact. Nose: No nasal discharge. Mouth/Throat: Moist mucous membranes, no redness, no lesions. Neck: Neck supple, non-tender, no cervical lymphadenopathy. LIJ in place. Lungs: Clear YADY to auscultation and percussion, No accessory muscle use. Cardio: Normal S1/S2, regular rhythm, no murmurs, no JVD or carotid bruits. Abdomen: Soft, distended and tender with palpation, no palpable masses, peristalsis present, no guarding or rebound. Abdominal binder in place. Extremities: Symmetrical, no significant deformities, 2+ edema on UE and LE, non-tender, peripheral pulses presents. Skin: No rashes, no lesions, warm to touch. Neuro: No focal neurological deficits. Psych: Cooperative, appropriate mood and effect. I have reviewed the note and agree with the medical student's assessment & plan with exceptions as below. I have personally reviewed labs, imaging, home meds/prior records, examined the patient, formulated and discussed management plan with my attending Roney Ugalde PGY2 Disclaimer: Even though this this note was dictated by speech recognition and even though it was carefully revised there may still be minor errors in geology faculty member due to voice recognition software. Documentation for date of: 07/24/25 Subjective Subjective Interval history: Spoke at length with patient and nurse for updates. Pt is s/p x2 days R hemicolectomy with iliotransverse anastamosis. Overnight no acute events. She has had one bowel movement post-surgery. Telemetry showed sinus tachycardia through the night. Notably a clear liquid diet was initiated yesterday in addition to TPN via central line, per pt and her family after having an oral meal she immediately felt immense pain and stopped eating. Hospitalist team was concerned as she seemed distended and especially in pain this morning and ordered CXR + XR Abdomen which revealed broad dilation of stomach and bowels. She was decompressed via NG tube and GenSurg Dr. Suggs was notified. Additionally edema worsened and now included b/l LE as well as b/l UE, though she had no respiratory symptoms. This morning she endorses moderate diffuse abdominal tenderness, nausea, vomiting. Shedenies dysuria, SOB, chest pain, palpitations, constipation. Exam Vital Signs Temp Pulse Resp BP Pulse Ox O2 Del Method O2 Flow Rate 98.0 F 92 18 137/97 H 97 Nasal Cannula 2 07/24/25 08:00 07/24/25 11:28 07/24/25 08:00 07/24/25 11:28 07/24/25 08:00 07/24/25 08:00 07/24/25 08:00 Narrative Exam General: A/O x3, no acute distress Eyes: PERRL, EOMI. Anicteric, vision grossly intact. Ears: No ear pain, no ear discharge, Hearing grossly intact. Nose: No nasal discharge. Mouth/Throat: Moist mucous membranes, no redness, no lesions. Neck: Neck supple, non-tender, no cervical lymphadenopathy. Lungs: Clear to auscultation bilaterally, no rales/rhonchi/wheezes, no accessory muscle use. Cardio: Normal S1/S2, tachycardic, regular rhythm, no murmurs, no JVD Abdomen: Soft, TTP w/ intact bandaging from procedure, hyperactive bowel sounds, no guarding or rebound. Extremities: Symmetrical, no significant deformities, 2+ pitting edema of b/l LEs, UE edema b/l, non-tender, peripheral pulses presents. Skin: No rashes, no lesions, warm to touch. Neuro: No focal neurological deficits. motor and sensory intact Psych: Cooperative, appropriate mood and effect. Objective Labs 07/24/25 04:27 07/24/25 04:27 Labs: Laboratory Results - last 24 hr 07/24/25 04:27 WBC 23.1 H RBC 2.97 L Hgb 8.5 L Hct 25.3 L MCV 85 MCH 28.6 MCHC 33.6 RDW Std Deviation 51.2 H Plt Count 328 Neut % (Auto) 84 H Lymph % (Auto) 7 L Hardin % (Auto) 3 Eos % (Auto) 1 Baso % (Auto) 0 Neut # (Auto) 19.4 H Lymph # (Auto) 1.6 Hardin # (Auto) 0.8 Eos # (Auto) 0.1 Baso # (Auto) 0.1 Immature Gran # (Auto) 1.19 H Absolute Nucleated RBC 0.09 H Immature Gran % 5 H Nucleated RBC % 0 Sodium 144 Potassium 2.9 L D Chloride 110 H Carbon Dioxide 24.4 Anion Gap 10 BUN 15 Creatinine 0.5 L Estim Creat Clear Calc 87.0 eGFR > 60 BUN/Creatinine Ratio 30 H Glucose 183 H D Calculated Osmolality 292 Calcium 7.4 L Corrected Calcium 9.0 Phosphorus 1.4 L Magnesium 2.0 Total Bilirubin 0.3 AST 14 ALT 8 L Alkaline Phosphatase 139 H D Total Protein 4.7 L Albumin 2.0 L Globulin 2.7 Albumin/Globulin Ratio 0.7 L Quality Measures Quality Measures none Advance care planning discussed with:: patient Assessment & Plan Assessment Current Active Medications: Generic Name Dose Route Start Last Admin Trade Name Freq PRN Reason Stop Dose Admin Acetaminophen 650 mg 07/18/25 22:29 07/19/25 15:54 Acetaminophen 325 Mg Tablet PO 08/17/25 22:28 650 mg Q6H PRN Administration Fever >100.4 Fat Emulsion Intravenous 500 mls @ 32 mls/hr 07/22/25 18:00 Intralipid 20% Iv IV 08/21/25 17:59 [facility] Piperacillin Sod/Tazobactam 100 mls @ 25 mls/hr 07/23/25 14:00 07/24/25 05:35 Sod 4.5 gm/ Sodium Chloride IV 07/27/25 13:59 25 mls/hr Q8HR SHAWNA Administration Protocol Potassium Phosphate 22.5 mmol/ 507.5 mls @ 82.778 mls/hr 07/24/25 07:33 07/24/25 07:59 Sodium Chloride IV 07/24/25 13:40 82.778 mls/hr X1 ONE Administration Potassium Phosphate 15 mmol/ 1,030 mls @ 30.235 mls/hr 07/24/25 11:31 07/24/25 11:34 Potassium Acetate 30 meq/ IV 07/25/25 21:34 30.235 mls/hr Multivitamins/Minerals 10 ml/ X1 ONE Administration Amino Acids Morphine Sulfate 4 mg 07/21/25 15:04 07/24/25 07:51 Morphine Sulf Inj 4 Mg/Ml Vial IVP 07/26/25 15:03 4 mg Q4HR PRN Administration PAIN 7-10 Ondansetron HCl 4 mg 07/18/25 22:29 07/24/25 10:29 Ondansetron Inj 2 Mg/Ml Inj 2 Ml IVP 08/17/25 22:28 4 mg Q6H PRN Administration NAUSEA OR VOMITING Protocol Thiamine HCl 100 mg 07/23/25 09:00 07/24/25 09:49 Thiamine Inj 100 Mg/Ml Vial 2 Ml IVP 08/22/25 08:59 100 mg QDAY SHAWNA Administration Plan 65 yo F w/ PMH prediabetes, anemia presented with worsening of abdominal pain since yesterday, CT Scan shows Cecal Mass. Admitted for further workup/colonoscopy. #Cecal Mass unknown etiology, s/p resection day 1 #Leukocytosis #E. coli Bacteremia S/p x3 days right hemicolectomy and ilio-transverse colostomy Patient presented with worsening abdominal pain since day before admit. WBCs today decreased significantly to 32.[address] Abdomen in ED showed mass appearing to rise from the cecum. CEA this admit elevated at 34.7. Pt underwent colonoscopy this admit which revealed likely malignant and obstructive mass of ascending colon w/ Dr. Mc, and received surgical intervention as per HPI. Please see op note for details. Blood cultures positive for e.coli Central line placed 07/22/25 for TPN. XR Abdomen 07/24/25 showed diffuse stomach and bowel dilation, as per HPI an NG tube was placed for decompression. Pt was placed on NPO. Pt's edema worsened overnight, IV fluids were discontinued and x1 IV Lasix was administered with good effect. - [place]ensurg Dr. Suggs, GI Dr. Mc, Oncology Dr. Weir following. Dr. Weir plans to interpret pathology of mass as available and follow up outpatient. - Acetaminophen/Zofran for symptomatic relief - S/p IV Rocephin/IV Flagyl (07/19/25 - 07/20/25) - Cont IV Zosyn 4.5gm (07/20-) d/t persistent leukocytosis that is improving - NPO, continue TPN #UTI (likely resolved) #SIRS Patient met SIRS criteria leukocytosis, tachycardia, fever of 101 on day of admit however lactic acid was normal. Repeat UA showed evidence of UTI, though pt has no genitourinary symptoms today. - Cultures have grown GNR/Pseudomonas however with very small CFUs - Abx as above #Pericardial effusion Per CT ab/pelv in ED, 7mm effusion present. Possibly malignant in setting of large mass in the cecum/ colon. However pt is asymptomatic at this time, denies chest pain, SOB, palpitations. - Consider Echo, however not currently indicated #Normocytic Anemia Acute on chronic, at this time most likely 2/2 cecal mass/possible malignancy. Iron panel this admit showed low Iron 5, TIBC 135, Iron Sat 3, Ferritin however normal at 135. Most likely mixed picture in setting of chronic disease with additional complication of volume loss in setting of malignancy and surgery. Hgb today 8.4 Pt however has no signs/sx of active bleed. - Follow CBCs in AM #Elevated BP (resolved) On admission BP noted to be 160/85, however pt has no HTN history and BP has been normal for the rest of this admit. - Monitor - FU outpt PCP Hospital management: Disposition: Manage recovery from extensive bowel resection. Diet: TPN Lines: peripheral IV DVT prophylaxis: SCDs CODE STATUS: full code ----- Plan discussed with attending physician Dr. Piper Neely, Medical Student [facility] Attending Provider Attestation/Addendum I have discussed and was present for the essential components of the history, physical examination, diagnosis, and treatment plan with the resident. I agree with the patient's care as documented by the resident and amended herein by me. Fernando Saldaña DO. Although this document has been carefully reviewed, there may still be some phonetic and other typographical errors. These errors are purely grammatical due to imperfections in the software program and should not be construed in any way to compromise the substance of the patient's medical care during this visit. Patient seen and evaluated this AM. No acute events overnight, vital signs stable, patient afebrile, WBC down trended to 23, hemoglobin 8.5, potassium low at 2.9, chloride 110. Patient on TPN however was not tolerating oral feeds, stomach became very painful and distended. Imaging showed dilated stomach and SBO hence we did place an NG today with intermittent suction which did improve the patient significantly, she felt much better. We did notify general surgery. Repeat chest x-ray did show bibasilar pneumonia however the patient is on Zosyn. Will continue NG tube for now antibiotics and monitor closely, appreciate general surgery recommendations.
--- NOTE | 2025-07-24 16:08 | PC.SS ---
Rounding note: NPO, TPN to continue. Continue IV antibiotics. Discharging home when medically clear.
--- NOTE | 2025-07-24 17:49 | PD.IMPROG ---
Documentation for date of: 07/24/25 Subjective Subjective Interval history: Losing weight Not eating Agree with the initiation of total parenteral nutrition Exam Vital Signs Temp Pulse Resp BP Pulse Ox O2 Del Method O2 Flow Rate 98.4 F 91 15 118/78 97 Nasal Cannula 2 07/24/25 16:00 07/24/25 16:00 07/24/25 16:00 07/24/25 16:00 07/24/25 16:00 07/24/25 16:00 07/24/25 16:00 Objective Labs 07/24/25 04:27 07/24/25 04:27 Labs: Laboratory Results - last 24 hr 07/24/25 04:27 WBC 23.1 H RBC 2.97 L Hgb 8.5 L Hct 25.3 L MCV 85 MCH 28.6 MCHC 33.6 RDW Std Deviation 51.2 H Plt Count 328 Neut % (Auto) 84 H Lymph % (Auto) 7 L Amelia % (Auto) 3 Eos % (Auto) 1 Baso % (Auto) 0 Neut # (Auto) 19.4 H Lymph # (Auto) 1.6 Amelia # (Auto) 0.8 Eos # (Auto) 0.1 Baso # (Auto) 0.1 Immature Gran # (Auto) 1.19 H Absolute Nucleated RBC 0.09 H Immature Gran % 5 H Nucleated RBC % 0 Sodium 144 Potassium 2.9 L D Chloride 110 H Carbon Dioxide 24.4 Anion Gap 10 BUN 15 Creatinine 0.5 L Estim Creat Clear Calc 87.0 eGFR > 60 BUN/Creatinine Ratio 30 H Glucose 183 H D Calculated Osmolality 292 Calcium 7.4 L Corrected Calcium 9.0 Phosphorus 1.4 L Magnesium 2.0 Total Bilirubin 0.3 AST 14 ALT 8 L Alkaline Phosphatase 139 H D Total Protein 4.7 L Albumin 2.0 L Globulin 2.7 Albumin/Globulin Ratio 0.7 L Impressions Impression: Extensive tumor burden involving the ascending colon and cecum with perforation into the tumor requiring exploratory laparotomy resection of the mass and ilio transverse anastomosis Failure to thrive I agree with the TPN Continue current management Assessment & Plan A&P Narrative 1. Large ascending colon mass, suspected cancer, attached to sigmoid colon status post right hemicolectomy ileotransverse anastomosis. 2. Significant leukocytosis pericardial effusion noted on CT UTI, appearing comfortable this a.m. with supportive care Postop day 1. 3. Will check pathology and follow patient upon discharge at the cancer treatment center. 4 Thank you very much for allowing me to evaluate this patient. Time Spent With Patient Time: Total time spent is greater than 50% in coordination of care (as documented) at patient's floor/unit and/or counseling patient:
[2025-07-25] VITALS (11 sets, daily range): BP systolic 120–140; BP diastolic 71–86; PULSE 79–98; RESP 16–18; TEMP 36.3–37; O2SAT 95–97; BMI 31.4
[2025-07-25] MEDS: MORPHINE SULF INJ 4 MG/ML VIAL IVP ×4 (03:33→22:40)
[2025-07-25 05:52] LABS: Basophils # (Auto) 0.0 Thou/mm3 (0.0-0.2); Basophils % (Auto) 0 % (0-2.5); Eosinophils # (Auto) 0.3 Thou/mm3 (0.0-0.5); Eosinophils % (Auto) 2 % (0-10); Hematocrit 23.1 % (36.0-46.0); Immature Granulocytes Auto 0.64 Thou/mm3 (0.00-0.00); Lymphocytes # (Auto) 1.5 Thou/mm3 (1.0-4.8); Lymphocytes % (Auto) 11 % (10-50); Mean Corpuscular HGB Conc 33.3 g/dl (31.0-37.0); Mean Corpuscular Hemoglobin 28.5 pg (25.0-35.0); Mean Corpuscular Volume 86 fL (80-100); Monocytes # (Auto) 0.6 Thou/mm3 (0.0-0.8); Monocytes % (Auto) 4 % (0-12); Neutrophils # (Auto) 10.8 Thou/mm3 (1.8-7.7); Neutrophils % (Auto) 78 % (37-80); Nucleated Red Blood Cell # 0.02 Thou/mm3 (0.00-0.00); Nucleated Red Blood Cell % 0 /100 WBC (0); Platelet Count 250 Thou/mm3 (140-440); RDW Standard Deviation 50.9 fL (36.4-46.3); Red Blood Count 2.70 Miln/mm3 (4.00-5.20); White Blood Count 13.9 Thou/mm3 (3.6-11.0)
[2025-07-25] MEDS: PIPER/TAZO INJ 4.5 GM in SODIUM CHLORIDE 0.9% (POP) 100 ML IV ×3 (05:53→22:24)
[2025-07-25 06:05] LABS: Hemoglobin 7.7 g/dL (12.0-16.0)
[2025-07-25 06:45] LABS: Alanine Aminotransferase < 7 U/L (10-49); Albumin, Serum 1.9 gm/dL (3.4-4.8); Albumin/Globulin Ratio 0.8 (1.2-2.2); Alkaline Phosphatase 105 U/L (46-116); Anion Gap 8 (7-16); Aspartate Amino Transferase 11 U/L (0-34); BUN/Creatinine Ratio 23 Ratio (12-20); Bilirubin,Total 0.3 mg/dL (0.3-1.2); Blood Urea Nitrogen 7 mg/dL (9-23); Calcium 7.2 mg/dL (8.3-10.6); Calcium (Corrected) 8.9 mg/dL (8.5-10.1); Carbon Dioxide 28.2 mMol/L (20.0-31.0); Chloride 107 mMol/L (98-107); Creatinine (Component) 0.3 mg/dL (0.6-1.3); Estimated Creatinine Clearance 146.0 mL/min (>60); Globulin 2.5 gm/dL (2.3-3.5); Glucose 156 mg/dL (74-106); Magnesium 1.7 mg/dL (1.6-2.6); Osmolality,Calculated 285 (275-295); Phosphorous 1.8 mg/dL (2.4-5.1); Potassium 3.1 mMol/L (3.4-5.1); Sodium 143 mMol/L (136-145); Total Protein 4.4 gm/dL (5.7-8.2); eGFR > 60 See Note
[2025-07-25] MEDS: THIAMINE INJ 100 MG/ML VIAL 2 ML IVP (09:38)
--- NOTE | 2025-07-25 11:41 | PD.SURPROG ---
Documentation for date of: 07/25/25 Subjective Subjective Brief History: History presents revealed that the patient has been having some chronic pain in the lower abdomen since last February. Patient denies any history of nausea or vomiting or change in the bowel habits. Patient denies any history of blood in the stools. She has however lost about 20 pounds and has not been feeling well. She is also weak. She denies any other major medical illness. She came to the emergency room with with increasing pain. Exam Vital Signs Temp Pulse Resp BP Pulse Ox O2 Del Method O2 Flow Rate 97.3 F 93 18 137/73 H 97 Nasal Cannula 2 07/25/25 08:00 07/25/25 08:00 07/25/25 08:00 07/25/25 08:00 07/25/25 08:00 07/25/25 08:00 07/25/25 08:00 Assessment & Plan Assessment Additional comments: Impression: Postoperative ileus requiring NG tube decompression Severe hypoalbuminemia Plan Plan: We shall keep the NG tube in place longer because of the dilatation of the small bowel in addition to acute gastric dilatation. We shall gradually increase the rate of TPN and provide all the calories through parenteral route. Her recovery will be slow because of the malnutrition and obstruction PROCEDURES: Procedures Exploratory laparotomy and right hemicolectomy and ilio transverse colostomy
[2025-07-25] MEDS: MAGNESIUM SULF IV (11:57)
[2025-07-25] MEDS: POTASSIUM PHOS IV (11:57)
[2025-07-25] MEDS: [UNRECOGNIZED DRUG - OTHER] IV (11:57)
[2025-07-25] MEDS: VANCOMYCIN/NS 1 GM IVPB 200 ML IV ×2 (13:55→22:20)
--- NOTE | 2025-07-25 14:56 | PC.SS ---
Rounding note: Post OP, on TPN, has NGT, and on IV antibiotics. General surgery to decide when patient can discharge home.
--- NOTE | 2025-07-25 15:02 | PD.RESPRO ---
Documentation for date of: 07/25/25 Subjective Subjective Interval history: Patient evaluated bedside, overnight events and labs reviewed, patient is postop day 4 for exploratory laparotomy and ileotransverse anastomosis, found to have invasive adenocarcinoma, with possible local metastasis. Oncology consult to Dr. Weir was placed recommended follow-up in clinic within 2 weeks after discharge. Patient is currently on TPN day 3, electrolyte abnormalities noted, electrolytes replenished by pharmacy. Patient did have an eventful day yesterday as she was unable to tolerate diet, Dr. Suggs general surgeon saw the patient today, recommended continuing with NG tube as it continued to drain over 200 mL greenish fluid. Will hold off on initiating diet today, continued on TPN. Urine culture grew Enterococcus and Pseudomonas, initiated vancomycin. Exam Vital Signs Temp Pulse Resp BP Pulse Ox O2 Del Method O2 Flow Rate 97.8 F 96 18 132/86 H 97 Nasal Cannula 2 07/25/25 12:00 07/25/25 12:00 07/25/25 12:00 07/25/25 12:00 07/25/25 12:00 07/25/25 12:00 07/25/25 12:00 Narrative Exam General: A/O x3, no acute distress, comfortably laying in bed, NG tube attatched to RICHAR. Eyes: PERRL, EOMI. Anicteric, vision grossly intact. Ears: No ear pain, no ear discharge, Hearing grossly intact. Nose: No nasal discharge. Mouth/Throat: Moist mild mucous membranes, no redness, no lesions. Neck: Neck supple, non-tender, no cervical lymphadenopathy. Lungs: Clear to auscultation bilaterally, no rales/rhonchi/wheezes, no accessory muscle use. Cardio: Normal S1/S2, tachycardic, regular rhythm, no murmurs, no JVD Abdomen: Soft, TTP w/ intact bandaging from procedure, hyperactive bowel sounds, no guarding or rebound. Extremities: Symmetrical, no significant deformities, 2+ pitting edema of b/l LEs, UE edema b/l, non-tender, peripheral pulses presents. Skin: No rashes, no lesions, warm to touch. Neuro: No focal neurological deficits. motor and sensory intact Psych: Cooperative, appropriate mood and effect. Objective Labs 07/26/25 05:18 07/26/25 05:18 Labs: Laboratory Results - last 24 hr 07/25/25 05:35 WBC 13.9 H D RBC 2.70 L Hgb 7.7 L Hct 23.1 L MCV 86 MCH 28.5 MCHC 33.3 RDW Std Deviation 50.9 H Plt Count 250 D Neut % (Auto) 78 Lymph % (Auto) 11 [place] % (Auto) 4 Eos % (Auto) 2 Baso % (Auto) 0 Neut # (Auto) 10.8 H Lymph # (Auto) 1.5 [place] # (Auto) 0.6 Eos # (Auto) 0.3 Baso # (Auto) 0.0 Immature Gran # (Auto) 0.64 H Absolute Nucleated RBC 0.02 H Immature Gran % 5 H Nucleated RBC % 0 Sodium 143 Potassium 3.1 L Chloride 107 Carbon Dioxide 28.2 Anion Gap 8 BUN 7 L Creatinine 0.3 L Estim Creat Clear Calc 146.0 eGFR > 60 BUN/Creatinine Ratio 23 H Glucose 156 H Calculated Osmolality 285 Calcium 7.2 L Corrected Calcium 8.9 Phosphorus 1.8 L Magnesium 1.7 Total Bilirubin 0.3 AST 11 ALT < 7 L Alkaline Phosphatase 105 D Total Protein 4.4 L Albumin 1.9 L Globulin 2.5 Albumin/Globulin Ratio 0.8 L Quality Measures Quality Measures none Advance care planning discussed with:: patient Assessment & Plan Assessment Current Active Medications: Generic Name Dose Route Start Last Admin Trade Name Freq PRN Reason Stop Dose Admin Acetaminophen 650 mg 07/18/25 22:29 07/19/25 15:54 Acetaminophen 325 Mg Tablet PO 08/17/25 22:28 650 mg Q6H PRN Administration Fever >100.4 Fat Emulsion Intravenous 500 mls @ 32 mls/hr 07/22/25 18:00 Intralipid 20% Iv IV 08/21/25 17:59 [facility] hospital Piperacillin Sod/Tazobactam 100 mls @ 25 mls/hr 07/23/25 14:00 07/25/25 13:55 Sod 4.5 gm/ Sodium Chloride IV 07/27/25 13:59 25 mls/hr Q8HR SHAWNA Administration Protocol Potassium Phosphate 30 mmol/ 1,012 mls @ 29.706 mls/hr 07/25/25 11:30 07/25/25 11:57 Magnesium Sulfate 1 gm/ Amino IV 07/26/25 21:33 29.706 mls/hr Acids/Electrolytes X1 ONE Administration Vancomycin/Sodium Chloride 200 mls @ 120 mls/hr 07/25/25 12:30 07/25/25 13:55 Vancomycin/Ns 1 Gm Ivpb IV 08/01/25 12:29 120 mls/hr BID@1000,2200 SHAWNA Administration Morphine Sulfate 4 mg 07/21/25 15:04 07/25/25 09:38 Morphine Sulf Inj 4 Mg/Ml Vial IVP 07/26/25 15:03 4 mg Q4HR PRN Administration PAIN 7-10 Ondansetron HCl 4 mg 07/18/25 22:29 07/24/25 10:29 Ondansetron Inj 2 Mg/Ml Inj 2 Ml IVP 08/17/25 22:28 4 mg Q6H PRN Administration NAUSEA OR VOMITING Protocol Pharmacy Consult 1 each 07/25/25 12:30 Vancomycin Pharmacy To Dose 1 Each Each IV 08/24/25 12:29 QDAY PRN CONSULT Thiamine HCl 100 mg 07/23/25 09:00 07/25/25 09:38 Thiamine Inj 100 Mg/Ml Vial 2 Ml IVP 08/22/25 08:59 100 mg QDAY SHAWNA Administration Plan 65 yo F w/ PMH prediabetes, anemia presented with worsening of abdominal pain since yesterday, CT Scan shows Cecal Mass. #Invasive adenocarcinoma of ascending colon #S/P ex lap right hemicolectomy and ilio transverse anastomosis?POD 4 #Possible bowel perforation and abscess #E. coli bacteremia Patient presented with worsening abdominal pain since day before admit. WBCs today decreased significantly to 32.[address] Abdomen in ED showed mass appearing to rise from the cecum. CEA this admit elevated at 34.7. Pt underwent colonoscopy this admit which revealed likely malignant and obstructive mass of ascending colon w/ Dr. Mc, and received surgical intervention as per HPI. Please see op note for details. Blood cultures positive for e.coli,, Central line placed 07/22/25 for TPN. XR Abdomen 07/24/25 showed diffuse stomach and bowel dilation, as per HPI an NG tube was placed for decompression. Pt was placed on NPO. Pt's edema worsened overnight, IV fluids were discontinued and x1 IV Lasix was administered with good effect. - Gensurg Dr. Suggs, GI Dr. Mc, Oncology Dr. Weir following. Dr. Weir plans to interpret pathology of mass as available and follow up outpatient. - Acetaminophen/Zofran for symptomatic relief - Cont IV Zosyn 4.5gm (07/20-) - IV vancomycin - NPO, continue TPN #UTI # Secondary to Enterococcus and Pseudomonas Patient did report dysuria prior to arrival in the hospital, urine cultures positive for Enterococcus and Pseudomonas, will initiate vancomycin. Repeat UA showed evidence of UTI, though pt has no genitourinary symptoms today. - Cultures have grown GNR/Pseudomonas however with very small CFUs -Continue IV Zosyn, added IV vancomycin #Pericardial effusion Per CT ab/pelv in ED, 7mm effusion present. Possibly malignant in setting of large mass in the cecum/ colon. However pt is asymptomatic at this time, denies chest pain, SOB, palpitations. - Consider Echo, however not currently indicated #Normocytic Anemia Acute on chronic, at this time most likely 2/2 cecal mass/possible malignancy. Iron panel this admit showed low Iron 5, TIBC 135, Iron Sat 3, Ferritin however normal at 135. Most likely mixed picture in setting of chronic disease with additional complication of volume loss in setting of malignancy and surgery. Hgb today 8.4 Pt however has no signs/sx of active bleed. - Follow CBCs in AM #Elevated BP (resolved) On admission BP noted to be 160/85, however pt has no HTN history and BP has been normal for the rest of this admit. - Monitor - FU outpt PCP Hospital management: Disposition: Manage recovery from extensive bowel resection. Diet: TPN Lines: peripheral IV DVT prophylaxis: SCDs CODE STATUS: full code ----- Plan discussed with attending physician Dr. Piper Ramirez PGY 3 Attending Provider Attestation/Addendum I have discussed and was present for the essential components of the history, physical examination, diagnosis, and treatment plan with the resident. I agree with the patient's care as documented by the resident and amended herein by me. Fernando Saldaña DO. Although this document has been carefully reviewed, there may still be some phonetic and other typographical errors. These errors are purely grammatical due to imperfections in the software program and should not be construed in any way to compromise the substance of the patient's medical care during this visit.
[2025-07-25] MEDS: FAT EMULSIONS 20% IV 500 ML 32 ML IV (18:11)
--- NOTE | 2025-07-25 18:18 | ESPR_ITS ---
Documentation for date of: 07/25/25 Subjective Subjective Interval history: NGT in place for gastric distention and small bowel ileus Exam Vital Signs Temp Pulse Resp BP Pulse Ox O2 Del Method O2 Flow Rate 97.3 F 91 17 126/78 97 Nasal Cannula 2 07/25/25 16:00 07/25/25 16:00 07/25/25 16:00 07/25/25 16:00 07/25/25 16:00 07/25/25 16:00 07/25/25 16:00 Objective Labs 07/25/25 05:35 07/25/25 05:35 Labs: Laboratory Results - last 24 hr 07/25/25 05:35 WBC 13.9 H D RBC 2.70 L Hgb 7.7 L Hct 23.1 L MCV 86 MCH 28.5 MCHC 33.3 RDW Std Deviation 50.9 H Plt Count 250 D Neut % (Auto) 78 Lymph % (Auto) 11 [place] % (Auto) 4 Eos % (Auto) 2 Baso % (Auto) 0 Neut # (Auto) 10.8 H Lymph # (Auto) 1.5 [place] # (Auto) 0.6 Eos # (Auto) 0.3 Baso # (Auto) 0.0 Immature Gran # (Auto) 0.64 H Absolute Nucleated RBC 0.02 H Immature Gran % 5 H Nucleated RBC % 0 Sodium 143 Potassium 3.1 L Chloride 107 Carbon Dioxide 28.2 Anion Gap 8 BUN 7 L Creatinine 0.3 L Estim Creat Clear Calc 146.0 eGFR > 60 BUN/Creatinine Ratio 23 H Glucose 156 H Calculated Osmolality 285 Calcium 7.2 L Corrected Calcium 8.9 Phosphorus 1.8 L Magnesium 1.7 Total Bilirubin 0.3 AST 11 ALT < 7 L Alkaline Phosphatase 105 D Total Protein 4.4 L Albumin 1.9 L Globulin 2.5 Albumin/Globulin Ratio 0.8 L Impressions Impression: Large locally invasive adenocarcinoma of the ascending colon Ileus Gastric distention Continue NGT suction Assessment & Plan A&P Narrative 1. Large ascending colon mass, suspected cancer, attached to sigmoid colon status post right hemicolectomy ileotransverse anastomosis. 2. Significant leukocytosis pericardial effusion noted on CT UTI, appearing comfortable this a.m. with supportive care Postop day 1. 3. Will check pathology and follow patient upon discharge at the cancer treatment center. 4 Thank you very much for allowing me to evaluate this patient. Time Spent With Patient Time: Total time spent is greater than 50% in coordination of care (as documented) at patient's floor/unit and/or counseling patient:
[2025-07-26] VITALS (9 sets, daily range): BP systolic 126–154; BP diastolic 74–96; PULSE 84–98; RESP 15–19; TEMP 36.1–36.8; O2SAT 95–98; BMI 31.4
[2025-07-26] MEDS: PIPER/TAZO INJ 4.5 GM in SODIUM CHLORIDE 0.9% (POP) 100 ML IV ×3 (05:24→21:40)
[2025-07-26] MEDS: MORPHINE SULF INJ 4 MG/ML VIAL IVP ×4 (05:25→22:15)
[2025-07-26 05:42] LABS: Basophils # (Auto) 0.1 Thou/mm3 (0.0-0.2); Basophils % (Auto) 0 % (0-2.5); Eosinophils # (Auto) 0.4 Thou/mm3 (0.0-0.5); Eosinophils % (Auto) 2 % (0-10); Hematocrit 27.1 % (36.0-46.0); Hemoglobin 9.1 g/dL (12.0-16.0); Immature Granulocytes Auto 0.89 Thou/mm3 (0.00-0.00); Lymphocytes # (Auto) 1.7 Thou/mm3 (1.0-4.8); Lymphocytes % (Auto) 10 % (10-50); Mean Corpuscular HGB Conc 33.6 g/dl (31.0-37.0); Mean Corpuscular Hemoglobin 28.9 pg (25.0-35.0); Mean Corpuscular Volume 86 fL (80-100); Monocytes # (Auto) 1.0 Thou/mm3 (0.0-0.8); Monocytes % (Auto) 6 % (0-12); Neutrophils # (Auto) 12.8 Thou/mm3 (1.8-7.7); Neutrophils % (Auto) 76 % (37-80); Nucleated Red Blood Cell # 0.02 Thou/mm3 (0.00-0.00); Nucleated Red Blood Cell % 0 /100 WBC (0); Platelet Count 321 Thou/mm3 (140-440); RDW Standard Deviation 49.5 fL (36.4-46.3); Red Blood Count 3.15 Miln/mm3 (4.00-5.20); White Blood Count 16.9 Thou/mm3 (3.6-11.0)
[2025-07-26 06:25] LABS: Alanine Aminotransferase < 7 U/L (10-49); Albumin, Serum 2.2 gm/dL (3.4-4.8); Albumin/Globulin Ratio 0.8 (1.2-2.2); Alkaline Phosphatase 136 U/L (46-116); Anion Gap 8 (7-16); Aspartate Amino Transferase 13 U/L (0-34); BUN/Creatinine Ratio 17 Ratio (12-20); Bilirubin,Total 0.2 mg/dL (0.3-1.2); Blood Urea Nitrogen 5 mg/dL (9-23); Calcium 7.5 mg/dL (8.3-10.6); Calcium (Corrected) 8.9 mg/dL (8.5-10.1); Carbon Dioxide 28.3 mMol/L (20.0-31.0); Chloride 102 mMol/L (98-107); Creatinine (Component) 0.3 mg/dL (0.6-1.3); Estimated Creatinine Clearance 146.0 mL/min (>60); Globulin 2.6 gm/dL (2.3-3.5); Glucose 146 mg/dL (74-106); Magnesium 1.7 mg/dL (1.6-2.6); Osmolality,Calculated 275 (275-295); Phosphorous 2.8 mg/dL (2.4-5.1); Potassium 3.2 mMol/L (3.4-5.1); Sodium 138 mMol/L (136-145); Total Protein 4.8 gm/dL (5.7-8.2); eGFR > 60 See Note
--- NOTE | 2025-07-26 08:51 | PC.DIETICIAN ---
Dietitian note: Received call from Dr. Sánchez to increase CPN, labs have improved. Recommend increase CPN to 45ml/hr x 8 hrs then goal of 60ml/hr to meet 100% of estimated calorie, 90% protein needs. RD to follow in 1-2days for Gi status, labs. Thank you
[2025-07-26] MEDS: THIAMINE INJ 100 MG/ML VIAL 2 ML IVP (09:58)
[2025-07-26] MEDS: VANCOMYCIN/NS 1 GM IVPB 200 ML IV ×2 (09:59→22:36)
[2025-07-26] MEDS: POTASSIUM PHOS IV (13:36)
[2025-07-26] MEDS: [UNRECOGNIZED DRUG - OTHER] IV (13:36)
[2025-07-26] MEDS: POTASSIUM ACET IV (13:36)
[2025-07-26] MEDS: MAGNESIUM SULF IV (13:36)
--- NOTE | 2025-07-26 13:42 | ESPR_ITS ---
<Statement entered by Roney Ugalde MD - 07/26/25 14:56> Patient was seen and examined at bedside this morning. No acute overnight events. Patient seems a lot more lively today and does not have abdominal distention or as much abdominal pain as she did on days prior. Still having some output from the NG tube. Will continue with TPN for now and follow-up with general surgery for further recommendations. No other complaints at this time. I have reviewed the note and agree with the resident's assessment & plan with exceptions as above. I have personally reviewed labs, imaging, home meds/prior records, examined the patient, formulated and discussed management plan with my attending Roney Ugalde PGY2 Disclaimer: Even though this this note was dictated by speech recognition and even though it was carefully revised there may still be minor errors in russian language professor due to voice recognition software. Documentation for date of: 07/26/25 Subjective Subjective Interval history: Patient was seen and examined at bedside today. No acute events overnight, and patient is in less pain. NG output 450 of greenish material; urine 800ml in container and clear. WBC today 16.9 from 13.9 yesterday. Exam Vital Signs Temp Pulse Resp BP Pulse Ox O2 Del Method O2 Flow Rate 97.0 F 95 16 136/86 H 98 Room Air 1 07/26/25 08:00 07/26/25 12:00 07/26/25 10:41 07/26/25 08:00 07/26/25 10:41 07/26/25 08:00 07/25/25 19:34 Narrative Exam General: A/O x3, no acute distress, comfortably laying in bed, NG tube attached to RICHAR. Eyes: PERRL, EOMI. Anicteric, vision grossly intact. Ears: No ear pain, no ear discharge, Hearing grossly intact. Nose: No nasal discharge. Mouth/Throat: Moist mild mucous membranes, no redness, no lesions. Neck: Neck supple, non-tender, no cervical lymphadenopathy. Lungs: Clear to auscultation bilaterally, no rales/rhonchi/wheezes, no accessory muscle use. Cardio: Normal S1/S2, tachycardic, regular rhythm, no murmurs, no JVD Abdomen: Soft, tender around surgical incision, no guarding or rebound. Extremities: Symmetrical, no significant deformities, non-tender, peripheral pulses presents. Skin: No rashes, no lesions, warm to touch. Neuro: No focal neurological deficits. motor and sensory intact Psych: Cooperative, appropriate mood and effect. Objective Labs 07/26/25 05:18 07/26/25 05:18 Labs: Laboratory Results - last 24 hr 07/26/25 05:18 WBC 16.9 H RBC 3.15 L Hgb 9.1 L Hct 27.1 L MCV 86 MCH 28.9 MCHC 33.6 RDW Std Deviation 49.5 H Plt Count 321 D Neut % (Auto) 76 Lymph % (Auto) 10 [place] % (Auto) 6 Eos % (Auto) 2 Baso % (Auto) 0 Neut # (Auto) 12.8 H Lymph # (Auto) 1.7 [place] # (Auto) 1.0 H Eos # (Auto) 0.4 Baso # (Auto) 0.1 Immature Gran # (Auto) 0.89 H Absolute Nucleated RBC 0.02 H Immature Gran % 5 H Nucleated RBC % 0 Sodium 138 Potassium 3.2 L Chloride 102 Carbon Dioxide 28.3 Anion Gap 8 BUN 5 L Creatinine 0.3 L Estim Creat Clear Calc 146.0 eGFR > 60 BUN/Creatinine Ratio 17 Glucose 146 H Calculated Osmolality 275 Calcium 7.5 L Corrected Calcium 8.9 Phosphorus 2.8 Magnesium 1.7 Total Bilirubin 0.2 L AST 13 ALT < 7 L Alkaline Phosphatase 136 H D Total Protein 4.8 L Albumin 2.2 L Globulin 2.6 Albumin/Globulin Ratio 0.8 L Quality Measures Quality Measures none Advance care planning discussed with:: other Assessment & Plan Assessment Current Active Medications: Generic Name Dose Route Start Last Admin Trade Name Brigitte PRN Reason Stop Dose Admin Acetaminophen 650 mg 07/18/25 22:29 07/19/25 15:54 Acetaminophen 325 Mg Tablet PO 08/17/25 22:28 650 mg Q6H PRN Administration Fever >100.4 Fat Emulsion Intravenous 500 mls @ 32 mls/hr 07/22/25 18:00 07/25/25 18:11 Intralipid 20% Iv IV 08/21/25 17:59 32 mls/hr SuTuTh SHAWNA Administration Piperacillin Sod/Tazobactam 100 mls @ 25 mls/hr 07/23/25 14:00 07/26/25 13:32 Sod 4.5 gm/ Sodium Chloride IV 07/27/25 13:59 25 mls/hr Q8HR SHAWNA Administration Protocol Vancomycin/Sodium Chloride 200 mls @ 120 mls/hr 07/25/25 12:30 07/26/25 09:59 Vancomycin/Ns 1 Gm Ivpb IV 08/01/25 12:29 120 mls/hr BID@1000,2200 SHAWNA Administration Protocol Potassium Acetate 40 meq/ 2,029 mls @ 45 mls/hr 07/26/25 12:30 07/26/25 13:36 Magnesium Sulfate 2 gm/ IV 07/28/25 09:35 45 mls/hr Potassium Phosphate 15 mmol/ QDAY ONE Administration Amino Acids/Electrolytes Morphine Sulfate 4 mg 07/21/25 15:04 07/26/25 11:04 Morphine Sulf Inj 4 Mg/Ml Vial IVP 07/26/25 15:03 4 mg Q4HR PRN Administration PAIN 7-10 Ondansetron HCl 4 mg 07/18/25 22:29 07/24/25 10:29 Ondansetron Inj 2 Mg/Ml Inj 2 Ml IVP 08/17/25 22:28 4 mg Q6H PRN Administration NAUSEA OR VOMITING Protocol Pharmacy Consult 1 each 07/25/25 12:30 Vancomycin Pharmacy To Dose 1 Each Each IV 08/24/25 12:29 QDAY PRN CONSULT Thiamine HCl 100 mg 07/23/25 09:00 07/26/25 09:58 Thiamine Inj 100 Mg/Ml Vial 2 Ml IVP 08/22/25 08:59 100 mg QDAY SHAWNA Administration Plan 65 yo F w/ PMH prediabetes, anemia presented with worsening of abdominal pain since yesterday, CT Scan shows Cecal Mass. #Invasive adenocarcinoma of ascending colon #S/P ex lap right hemicolectomy and ilio transverse anastomosis?POD 4 #Possible bowel perforation and abscess #E. coli bacteremia Patient presented with worsening abdominal pain since day before admit. WBCs today 16.9 [address] Abdomen in ED showed mass appearing to rise from the cecum. CEA this admit elevated at 34.7. Pt underwent colonoscopy this admit which revealed likely malignant and obstructive mass of ascending colon w/ Dr. Mc, and received surgical intervention as per HPI. Please see op note for details. Blood cultures positive for e.coli,, Central line placed 07/22/25 for TPN. XR Abdomen 07/24/25 showed diffuse stomach and bowel dilation, as per HPI an NG tube was placed for decompression. Pt was placed on NPO. Pt's edema improved. WBC today 16.9 from 13.9 yesterday. Plan: - Gensurg, GI, Oncology following. Dr. Weir (oncology) plans to interpret pathology of mass as available and follow up outpatient. - Acetaminophen/Zofran for symptomatic relief - IV pip-tazo 4.5gm (07/20-) - IV vancomycin - NPO, continue TPN #UTI #Secondary to Enterococcus and Pseudomonas Patient reported dysuria prior to arrival in the hospital, urine cultures positive for Enterococcus and Pseudomonas, will initiate vancomycin. Repeat UA showed evidence of UTI; pt has no genitourinary symptoms currently. Urine in container this morning was 800ml and clear. Plan: - Cultures have grown GNR/Pseudomonas however with very small CFUs -Continue IV Zosyn, added IV vancomycin #Pericardial effusion Per CT ab/pelv in ED, 7mm effusion present. Possibly malignant in setting of large mass in the cecum/ colon. However pt is asymptomatic at this time, denies chest pain, SOB, palpitations. - Consider Echo, however not currently indicated #Normocytic Anemia Acute on chronic, at this time most likely 2/2 cecal mass/possible malignancy. Iron panel this admit showed low Iron 5, TIBC 135, Iron Sat 3, Ferritin however normal at 135. Most likely mixed picture in setting of chronic disease with additional complication of volume loss in setting of malignancy and surgery. Hgb 07/26/25- 9. Pt has no signs/sympoms of active bleed. - Trend CBCs #Elevated BP (resolved) On admission BP-160/85; pt has no HTN history and BP has been subsequently normal. Plan: - Monitor BP Disposition: Med-Surg DVT prophylaxis: SCDs GI prophylaxis: Diet: TPN Lines: PIV CODE STATUS: Full code This case was discussed with my attending physician, Dr. Saldaña, and senior resident, Dr. Alicia. Addy Fernando MD-PhD, PGY1 Attending Provider Attestation/Addendum Patient seen evaluated in the AM, POD 5 from Exploratory laparotomy and right hemicolectomy and ilio transverse colostomy, vital signs stable, patient afebrile, patient has no subjective complaints, no abdominal pain noted this morning, abdomen soft. NG tube output approximately 400 mL this morning. Significant labs including WBC of 16, hemoglobin 9, potassium 3.2. Will replete electrolytes as necessary. Will continue TPN for now, will likely switch to oral feeds once NGT output has stopped. General surgery is on the case, will continue Zosyn and vancomycin for now for UTI with Enterococcus faecalis and Pseudomonas aeruginosa and E. coli bacteremia.
--- NOTE | 2025-07-26 19:20 | PD.IMPROG ---
Documentation for date of: 07/26/25 Subjective Subjective Interval history: NGT still in place Output has decreased Met with the family Exam Vital Signs Temp Pulse Resp BP Pulse Ox O2 Del Method O2 Flow Rate 97.0 F 96 18 132/78 H 96 Room Air 1 07/26/25 16:00 07/26/25 19:12 07/26/25 19:12 07/26/25 16:00 07/26/25 19:12 07/26/25 16:00 07/26/25 19:12 Objective Labs 07/26/25 05:18 07/26/25 05:18 Labs: Laboratory Results - last 24 hr 07/26/25 05:18 WBC 16.9 H RBC 3.15 L Hgb 9.1 L Hct 27.1 L MCV 86 MCH 28.9 MCHC 33.6 RDW Std Deviation 49.5 H Plt Count 321 D Neut % (Auto) 76 Lymph % (Auto) 10 [place] % (Auto) 6 Eos % (Auto) 2 Baso % (Auto) 0 Neut # (Auto) 12.8 H Lymph # (Auto) 1.7 [place] # (Auto) 1.0 H Eos # (Auto) 0.4 Baso # (Auto) 0.1 Immature Gran # (Auto) 0.89 H Absolute Nucleated RBC 0.02 H Immature Gran % 5 H Nucleated RBC % 0 Sodium 138 Potassium 3.2 L Chloride 102 Carbon Dioxide 28.3 Anion Gap 8 BUN 5 L Creatinine 0.3 L Estim Creat Clear Calc 146.0 eGFR > 60 BUN/Creatinine Ratio 17 Glucose 146 H Calculated Osmolality 275 Calcium 7.5 L Corrected Calcium 8.9 Phosphorus 2.8 Magnesium 1.7 Total Bilirubin 0.2 L AST 13 ALT < 7 L Alkaline Phosphatase 136 H D Total Protein 4.8 L Albumin 2.2 L Globulin 2.6 Albumin/Globulin Ratio 0.8 L Impressions Impression: Aggressive adenocarcinoma of the ascending colon and cecum Status post right hemicolectomy Continue TPN and current management Assessment & Plan A&P Narrative 1. Large ascending colon mass, suspected cancer, attached to sigmoid colon status post right hemicolectomy ileotransverse anastomosis. 2. Significant leukocytosis pericardial effusion noted on CT UTI, appearing comfortable this a.m. with supportive care Postop day 1. 3. Will check pathology and follow patient upon discharge at the cancer treatment center. 4 Thank you very much for allowing me to evaluate this patient. Time Spent With Patient Time: Total time spent is greater than 50% in coordination of care (as documented) at patient's floor/unit and/or counseling patient:
[2025-07-26 22:29] LABS: Vancomycin,Trough 10.1 mcg/mL (5.0-10.0)
[2025-07-27] VITALS (10 sets, daily range): BP systolic 123–146; BP diastolic 80–97; PULSE 95–116; RESP 16–23; TEMP 36.1–36.7; O2SAT 91–96; BMI 31.4; BMI 11.0
[2025-07-27] MEDS: MORPHINE SULF INJ 4 MG/ML VIAL IVP ×5 (03:31→21:22)
[2025-07-27 05:24] LABS: Basophils # (Auto) 0.1 Thou/mm3 (0.0-0.2); Basophils % (Auto) 0 % (0-2.5); Eosinophils # (Auto) 0.3 Thou/mm3 (0.0-0.5); Eosinophils % (Auto) 1 % (0-10); Hematocrit 25.8 % (36.0-46.0); Immature Granulocytes Auto 0.97 Thou/mm3 (0.00-0.00); Lymphocytes # (Auto) 1.3 Thou/mm3 (1.0-4.8); Lymphocytes % (Auto) 6 % (10-50); Mean Corpuscular HGB Conc 33.7 g/dl (31.0-37.0); Mean Corpuscular Hemoglobin 29.1 pg (25.0-35.0); Mean Corpuscular Volume 86 fL (80-100); Monocytes # (Auto) 1.3 Thou/mm3 (0.0-0.8); Monocytes % (Auto) 6 % (0-12); Neutrophils # (Auto) 17.0 Thou/mm3 (1.8-7.7); Neutrophils % (Auto) 82 % (37-80); Nucleated Red Blood Cell # 0.02 Thou/mm3 (0.00-0.00); Nucleated Red Blood Cell % 0 /100 WBC (0); Platelet Count 407 Thou/mm3 (140-440); RDW Standard Deviation 49.7 fL (36.4-46.3); Red Blood Count 2.99 Miln/mm3 (4.00-5.20); White Blood Count 20.9 Thou/mm3 (3.6-11.0)
[2025-07-27] MEDS: PIPER/TAZO INJ 4.5 GM in SODIUM CHLORIDE 0.9% (POP) 100 ML IV ×3 (05:41→21:08)
[2025-07-27 05:53] LABS: Hemoglobin 8.7 g/dL (12.0-16.0)
[2025-07-27 06:06] LABS: Alanine Aminotransferase < 7 U/L (10-49); Albumin, Serum 2.1 gm/dL (3.4-4.8); Albumin/Globulin Ratio 0.8 (1.2-2.2); Alkaline Phosphatase 119 U/L (46-116); Anion Gap 6 (7-16); Aspartate Amino Transferase 13 U/L (0-34); BUN/Creatinine Ratio 20 Ratio (12-20); Bilirubin,Total 0.3 mg/dL (0.3-1.2); Blood Urea Nitrogen 6 mg/dL (9-23); Calcium 7.5 mg/dL (8.3-10.6); Calcium (Corrected) 9.0 mg/dL (8.5-10.1); Carbon Dioxide 26.6 mMol/L (20.0-31.0); Chloride 102 mMol/L (98-107); Creatinine (Component) 0.3 mg/dL (0.6-1.3); Estimated Creatinine Clearance 146.0 mL/min (>60); Globulin 2.6 gm/dL (2.3-3.5); Glucose 207 mg/dL (74-106); Osmolality,Calculated 273 (275-295); Potassium 3.6 mMol/L (3.4-5.1); Sodium 135 mMol/L (136-145); Total Protein 4.7 gm/dL (5.7-8.2); eGFR > 60 See Note
--- NOTE | 2025-07-27 07:56 | PD.SURPROG ---
Documentation for date of: 07/27/25 Subjective Subjective Brief History: History presents revealed that the patient has been having some chronic pain in the lower abdomen since last February. Patient denies any history of nausea or vomiting or change in the bowel habits. Patient denies any history of blood in the stools. She has however lost about 20 pounds and has not been feeling well. She is also weak. She denies any other major medical illness. She came to the emergency room with with increasing pain. Narrative: Patient's abdomen is mildly distended but bowel sounds are present. She is passing flatus but no bowel movement yet. Exam Vital Signs Temp Pulse Resp BP Pulse Ox O2 Del Method O2 Flow Rate 98.0 F 97 20 126/84 95 Room Air 1 07/27/25 07:51 07/27/25 07:51 07/27/25 07:51 07/27/25 07:51 07/27/25 07:51 07/27/25 07:51 07/27/25 06:53 Her vital signs are normal other than mild tachycardia Routine Abdominal Exam Comments: Abdominal examination shows hypoactive bowel sounds. NG tube return is still greenish Assessment & Plan Assessment Additional comments: Impression: Slow recovery from small bowel obstruction secondary to right colon cancer Plan Plan: We shall leave the NG tube as long as it is needed. We would be not in a hurry to feed her as long as we have TPN. Encourage ambulation PROCEDURES: Procedures Exploratory laparotomy and right hemicolectomy and ilio transverse colostomy
[2025-07-27] MEDS: THIAMINE INJ 100 MG/ML VIAL 2 ML IVP (09:03)
[2025-07-27] MEDS: VANCOMYCIN/D5W 1,250 MG IVPB 250 ML 120 MG IV ×2 (09:16→21:09)
--- NOTE | 2025-07-27 10:41 | ESPR_ITS ---
<Statement entered by Roney Ugalde MD - 07/27/25 17:39> Patient was seen and evaluated at bedside this morning. No acute overnight events. Patient still having some incisional pain, otherwise nothing else. PT will work with patient today. Will increase ambulation. Still having output from NG tube. Continue IV Zosyn for now and vancomycin. General: A/O x3, no acute distress, ill appearing Eyes: PERRL, EOMI. Anicteric, vision grossly intact. Ears: No ear pain, no ear discharge, Hearing grossly intact. Nose: No nasal discharge. Mouth/Throat: Moist mucous membranes, no redness, no lesions. Neck: Neck supple, non-tender, no cervical lymphadenopathy. Lungs: Clear YADY to auscultation and percussion, No accessory muscle use. Cardio: Normal S1/S2, regular rhythm, no murmurs, no JVD or carotid bruits. Abdomen: Soft, incisional site tender, no palpable masses, peristalsis hypoactive, no guarding or rebound. Extremities: Symmetrical, no significant deformities, no peripheral edema , non-tender, peripheral pulses presents. Skin: No rashes, no lesions, warm to touch. LIJ catheter w/o erythema or drainage. NG tube in place with bile colored output Neuro: No focal neurological deficits. motor and sensory intact Psych: Cooperative, appropriate mood and effect. I have reviewed the note and agree with the medical student's assessment & plan with exceptions as above. I have personally reviewed labs, imaging, home meds/prior records, examined the patient, formulated and discussed management plan with my attending Roney Ugalde PGY2 Disclaimer: Even though this this note was dictated by speech recognition and even though it was carefully revised there may still be minor errors in lidar analyst due to voice recognition software. Documentation for date of: 07/27/25 Subjective Subjective Interval history: Spoke at length with patient and nurse for updates this AM. Overnight no acute events. Telemetry showed sinus-sinus tachycardia overnight. Pt today is in notably good spirits. On TPN. NG tube is draining 100cc green fluid. Garsia is draining clear urine. This morning she reports 8/10 abdominal pain around surgical site with associated nausea. She denies SOB, vomiting, cough, fever/chills, dysuria. Exam Vital Signs Temp Pulse Resp BP Pulse Ox O2 Del Method O2 Flow Rate 98.0 F 97 20 126/84 95 Room Air 1 07/27/25 07:51 07/27/25 07:51 07/27/25 07:51 07/27/25 07:51 07/27/25 07:51 07/27/25 07:51 07/27/25 06:53 Narrative Exam General: A/O x3, no acute distress, comfortably laying in bed, NG tube attached to RICHAR. Eyes: PERRL, EOMI. Anicteric, vision grossly intact. Ears: No ear pain, no ear discharge, Hearing grossly intact. Nose: No nasal discharge. Mouth/Throat: Moist mild mucous membranes, no redness, no lesions. Neck: Neck supple, non-tender, no cervical lymphadenopathy. Lungs: Clear to auscultation bilaterally, no rales/rhonchi/wheezes, no accessory muscle use. Cardio: Normal S1/S2, tachycardic, regular rhythm, no murmurs, no JVD Abdomen: Soft, tender around surgical incision, no guarding or rebound. Extremities: Symmetrical, no significant deformities, non-tender, peripheral pulses presents. Skin: No rashes, no lesions, warm to touch. Neuro: No focal neurological deficits. motor and sensory intact Psych: Cooperative, appropriate mood and effect. Objective Labs 07/27/25 04:32 07/27/25 04:32 Labs: Laboratory Results - last 24 hr 07/26/25 07/27/25 21:50 04:32 WBC 20.9 H RBC 2.99 L Hgb 8.7 L Hct 25.8 L MCV 86 MCH 29.1 MCHC 33.7 RDW Std Deviation 49.7 H Plt Count 407 D Neut % (Auto) 82 H Lymph % (Auto) 6 L [place] % (Auto) 6 Eos % (Auto) 1 Baso % (Auto) 0 Neut # (Auto) 17.0 H Lymph # (Auto) 1.3 [place] # (Auto) 1.3 H Eos # (Auto) 0.3 Baso # (Auto) 0.1 Immature Gran # (Auto) 0.97 H Absolute Nucleated RBC 0.02 H Immature Gran % 5 H Nucleated RBC % 0 Sodium 135 L Potassium 3.6 Chloride 102 Carbon Dioxide 26.6 Anion Gap 6 L BUN 6 L Creatinine 0.3 L Estim Creat Clear Calc 146.0 eGFR > 60 BUN/Creatinine Ratio 20 Glucose 207 H D Calculated Osmolality 273 L Calcium 7.5 L Corrected Calcium 9.0 Total Bilirubin 0.3 AST 13 ALT < 7 L Alkaline Phosphatase 119 H Total Protein 4.7 L Albumin 2.1 L Globulin 2.6 Albumin/Globulin Ratio 0.8 L Vancomycin Trough 10.1 H Quality Measures Quality Measures none Advance care planning discussed with:: patient Assessment & Plan Assessment Current Active Medications: Generic Name Dose Route Start Last Admin Trade Name Freq PRN Reason Stop Dose Admin Acetaminophen 650 mg 07/18/25 22:29 07/19/25 15:54 Acetaminophen 325 Mg Tablet PO 08/17/25 22:28 650 mg Q6H PRN Administration Fever >100.4 Fat Emulsion Intravenous 500 mls @ 32 mls/hr 07/22/25 18:00 07/25/25 18:11 Intralipid 20% Iv IV 08/21/25 17:59 32 mls/hr SuTuTh SHAWNA Administration Piperacillin Sod/Tazobactam 100 mls @ 25 mls/hr 07/23/25 14:00 07/27/25 05:41 Sod 4.5 gm/ Sodium Chloride IV 07/27/25 13:59 25 mls/hr Q8HR SHAWNA Administration Protocol Potassium Acetate 40 meq/ 2,029 mls @ 45 mls/hr 07/26/25 12:30 07/26/25 21:40 Magnesium Sulfate 2 gm/ IV 07/28/25 09:35 60 mls/hr Potassium Phosphate 15 mmol/ QDAY ONE Infusion Amino Acids/Electrolytes Vancomycin HCl/Dextrose 250 mls @ 120 mls/hr 07/27/25 10:00 07/27/25 09:16 Vancomycin/D5w 1,250 Mg Ivpb IV 08/03/25 09:59 120 mls/hr Q12H SHAWNA Administration Morphine Sulfate 4 mg 07/26/25 17:23 07/27/25 09:05 Morphine Sulf Inj 4 Mg/Ml Vial IVP 07/31/25 17:22 4 mg Q4HR PRN Administration PAIN SCALE 7-10 (Severe Ondansetron HCl 4 mg 07/18/25 22:29 07/24/25 10:29 Ondansetron Inj 2 Mg/Ml Inj 2 Ml IVP 08/17/25 22:28 4 mg Q6H PRN Administration NAUSEA OR VOMITING Protocol Pharmacy Consult 1 each 07/25/25 12:30 Vancomycin Pharmacy To Dose 1 Each Each IV 08/24/25 12:29 QDAY PRN CONSULT Thiamine HCl 100 mg 07/23/25 09:00 07/27/25 09:03 Thiamine Inj 100 Mg/Ml Vial 2 Ml IVP 08/22/25 08:59 100 mg QDAY SHAWNA Administration Plan 65 yo F w/ PMH prediabetes, anemia presented with worsening of abdominal pain since yesterday, CT Scan shows Cecal Mass. #Invasive adenocarcinoma of ascending colon #S/P ex lap right hemicolectomy and ilio transverse anastomosis?POD 4 #Possible bowel perforation and abscess #E. coli bacteremia Patient presented with worsening abdominal pain since day before admit. WBCs today 16.9 from [address] Abdomen in ED showed mass appearing to rise from the cecum. CEA this admit elevated at 34.7. Pt underwent colonoscopy this admit which revealed likely malignant and obstructive mass of ascending colon w/ Dr. Mc, and received surgical intervention as per HPI. Please see op note for details. Blood cultures positive for e.coli,, Central line placed 07/22/25 for TPN. XR Abdomen 07/24/25 showed diffuse stomach and bowel dilation, as per HPI an NG tube was placed for decompression. Pt was placed on NPO. Pt's edema improved. WBC today 20.9 from 16.9 yesterday. - Gensurg, GI, Oncology following. Dr. Weir (oncology) plans to interpret pathology of mass as available and follow up outpatient. Per Dr. Suggs will continue TPN and encourage ambulation to promote a bowel moevement. - Acetaminophen/Zofran for symptomatic relief - IV pip-tazo 4.5gm (07/20-) - IV vancomycin - NPO #UTI #Secondary to Enterococcus and Pseudomonas Patient reported dysuria prior to arrival in the hospital, urine cultures positive for Enterococcus and Pseudomonas Repeat UA showed evidence of UTI; pt has no genitourinary symptoms currently. Urine in container this morning was clear. - Continue IV Zosyn, IV vancomycin #Pericardial effusion Per CT ab/pelv in ED, 7mm effusion present. Possibly malignant in setting of large mass in the cecum/ colon. However pt is asymptomatic at this time, denies chest pain, SOB, palpitations. - Consider Echo, however not currently indicated #Normocytic Anemia Acute on chronic, at this time most likely 2/2 cecal mass/possible malignancy. Iron panel this admit showed low Iron 5, TIBC 135, Iron Sat 3, Ferritin however normal at 135. Most likely mixed picture in setting of chronic disease with additional complication of volume loss in setting of malignancy and surgery. Hgb 07/26/25- 9. Pt has no signs/sympoms of active bleed. - Trend CBCs #Elevated BP (resolved) On admission BP-160/85; pt has no HTN history and BP has been subsequently normal. - Monitor BP Disposition: Med-Surg DVT prophylaxis: SCDs GI prophylaxis: Diet: TPN Lines: PIV CODE STATUS: Full code This case was discussed with my attending physician, Dr. Mathew, and senior resident, Dr. Alicia. Ethan CADENA Attending Provider Attestation/Addendum I have examined the patient, reviewed labs and imaging findings, discussed the case with the resident(s), and reviewed entered orders. I agree with the plan of care as outlined in this note. Dr. Quincy MD
--- NOTE | 2025-07-27 10:54 | CHAP ---
Patient was visited by a Spiritual Care Volunteer on 07/27/2025 between 0930 and 1000 and received comfort, encouragement and/or prayer.
[2025-07-27] MEDS: INSULIN LISPRO (AdmeLOG) 1 UNIT/0.01 ML UNIT SC ×3 (12:27→23:13)
[2025-07-27] MEDS: MAGNESIUM SULF IV (15:11)
[2025-07-27] MEDS: POTASSIUM PHOS IV (15:11)
[2025-07-27] MEDS: [UNRECOGNIZED DRUG - OTHER] IV (15:11)
[2025-07-27] MEDS: POT CHL ADDITIVE IV (15:11)
--- NOTE | 2025-07-27 16:24 | PC.SS ---
rounding note: Patient is not medically ready for d/c. Patient is from home and will return home with HH. Patient has no had a b.m. and is still on TPN.
--- NOTE | 2025-07-27 16:33 | PC.PT ---
Patient is safe to transfer to a bedside commode and chair at bedside with a FWW and 1 staff for safety. RN made aware.
[2025-07-27] MEDS: FAT EMULSIONS 20% IV 500 ML 32 ML IV (17:03)
--- NOTE | 2025-07-27 20:22 | PD.IMPROG ---
Documentation for date of: 07/27/25 Subjective Subjective Interval history: Still no bowel movement hardly any reasonable passage of flatus does have burping belching eructation on TPN at the meeting with the son and the patient and the attending RN more ambulation with assistance from the family-nurses at nighttime along with the physical therapy Exam Vital Signs Temp Pulse Resp BP Pulse Ox O2 Del Method O2 Flow Rate 97.7 F 114 H 23 H 146/97 H 91 L Room Air 1 07/27/25 20:00 07/27/25 20:00 07/27/25 20:00 07/27/25 20:00 07/27/25 20:00 07/27/25 20:00 07/27/25 16:00 Objective Labs 07/27/25 04:32 07/27/25 04:32 Labs: Laboratory Results - last 24 hr 07/26/25 07/27/25 21:50 04:32 WBC 20.9 H RBC 2.99 L Hgb 8.7 L Hct 25.8 L MCV 86 MCH 29.1 MCHC 33.7 RDW Std Deviation 49.7 H Plt Count 407 D Neut % (Auto) 82 H Lymph % (Auto) 6 L [place] % (Auto) 6 Eos % (Auto) 1 Baso % (Auto) 0 Neut # (Auto) 17.0 H Lymph # (Auto) 1.3 [place] # (Auto) 1.3 H Eos # (Auto) 0.3 Baso # (Auto) 0.1 Immature Gran # (Auto) 0.97 H Absolute Nucleated RBC 0.02 H Immature Gran % 5 H Nucleated RBC % 0 Sodium 135 L Potassium 3.6 Chloride 102 Carbon Dioxide 26.6 Anion Gap 6 L BUN 6 L Creatinine 0.3 L Estim Creat Clear Calc 146.0 eGFR > 60 BUN/Creatinine Ratio 20 Glucose 207 H D Calculated Osmolality 273 L Calcium 7.5 L Corrected Calcium 9.0 Total Bilirubin 0.3 AST 13 ALT < 7 L Alkaline Phosphatase 119 H Total Protein 4.7 L Albumin 2.1 L Globulin 2.6 Albumin/Globulin Ratio 0.8 L Vancomycin Trough 10.1 H Impressions Impression: Ascending colon and cecum carcinoma requiring exploratory laparotomy and resection with primary transverse ileal anastomosis very slow postoperative recovery Encourage ambulation Assessment & Plan A&P Narrative 1. Large ascending colon mass, suspected cancer, attached to sigmoid colon status post right hemicolectomy ileotransverse anastomosis. 2. Significant leukocytosis pericardial effusion noted on CT UTI, appearing comfortable this a.m. with supportive care Postop day 1. 3. Will check pathology and follow patient upon discharge at the cancer treatment center. 4 Thank you very much for allowing me to evaluate this patient. Time Spent With Patient Time: Total time spent is greater than 50% in coordination of care (as documented) at patient's floor/unit and/or counseling patient:
[2025-07-28] VITALS (9 sets, daily range): BP systolic 124–143; BP diastolic 73–88; PULSE 69–113; RESP 16–94; TEMP 36.2–37; O2SAT 92–95; BMI 31.2; BMI 31.1
[2025-07-28] MEDS: MORPHINE SULF INJ 4 MG/ML VIAL IVP ×4 (03:31→21:28)
[2025-07-28] MEDS: PIPER/TAZO INJ 4.5 GM in SODIUM CHLORIDE 0.9% (POP) 100 ML IV ×3 (05:31→21:20)
[2025-07-28] MEDS: INSULIN LISPRO (AdmeLOG) 1 UNIT/0.01 ML UNIT SC ×4 (05:33→23:09)
[2025-07-28 08:37] LABS: Basophils # (Auto) 0.2 Thou/mm3 (0.0-0.2); Basophils % (Auto) 1 % (0-2.5); Eosinophils # (Auto) 0.5 Thou/mm3 (0.0-0.5); Eosinophils % (Auto) 2 % (0-10); Hematocrit 25.9 % (36.0-46.0); Immature Granulocytes Auto 1.31 Thou/mm3 (0.00-0.00); Lymphocytes # (Auto) 1.7 Thou/mm3 (1.0-4.8); Lymphocytes % (Auto) 6 % (10-50); Mean Corpuscular HGB Conc 33.2 g/dl (31.0-37.0); Mean Corpuscular Hemoglobin 28.7 pg (25.0-35.0); Mean Corpuscular Volume 86 fL (80-100); Monocytes # (Auto) 2.0 Thou/mm3 (0.0-0.8); Monocytes % (Auto) 7 % (0-12); Neutrophils # (Auto) 24.9 Thou/mm3 (1.8-7.7); Neutrophils % (Auto) 81 % (37-80); Nucleated Red Blood Cell # 0.02 Thou/mm3 (0.00-0.00); Nucleated Red Blood Cell % 0 /100 WBC (0); Platelet Count 429 Thou/mm3 (140-440); RDW Standard Deviation 51.3 fL (36.4-46.3); Red Blood Count 3.00 Miln/mm3 (4.00-5.20); White Blood Count 30.5 Thou/mm3 (3.6-11.0)
[2025-07-28 09:12] LABS: Alanine Aminotransferase < 7 U/L (10-49); Albumin, Serum 2.2 gm/dL (3.4-4.8); Albumin/Globulin Ratio 0.8 (1.2-2.2); Alkaline Phosphatase 122 U/L (46-116); Anion Gap 9 (7-16); Aspartate Amino Transferase 14 U/L (0-34); BUN/Creatinine Ratio 30 Ratio (12-20); Bilirubin,Total 0.3 mg/dL (0.3-1.2); Blood Urea Nitrogen 9 mg/dL (9-23); Calcium 7.4 mg/dL (8.3-10.6); Calcium (Corrected) 8.8 mg/dL (8.5-10.1); Carbon Dioxide 26.4 mMol/L (20.0-31.0); Chloride 100 mMol/L (98-107); Creatinine (Component) 0.3 mg/dL (0.6-1.3); Estimated Creatinine Clearance 145.6 mL/min (>60); Globulin 2.7 gm/dL (2.3-3.5); Glucose 212 mg/dL (74-106); Magnesium 2.3 mg/dL (1.6-2.6); Osmolality,Calculated 274 (275-295); Phosphorous 3.2 mg/dL (2.4-5.1); Potassium 3.7 mMol/L (3.4-5.1); Sodium 135 mMol/L (136-145); Total Protein 4.9 gm/dL (5.7-8.2); eGFR > 60 See Note
[2025-07-28 09:14] LABS: Hemoglobin 8.6 g/dL (12.0-16.0)
[2025-07-28] MEDS: THIAMINE INJ 100 MG/ML VIAL 2 ML IVP (09:14)
[2025-07-28] MEDS: VANCOMYCIN/D5W 1,250 MG IVPB 250 ML 120 MG IV ×2 (09:15→22:45)
--- NOTE | 2025-07-28 09:22 | ESPR_ITS ---
<Statement entered by Roney Ugalde MD - 07/28/25 11:12> Patient was seen and evaluated at bedside this morning. No acute overnight events. Encouraged ambulation and still has not had a BM. Will wait for patient to have BM prior to starting PO trial. NG tube output decreasing General: A/O x3, no acute distress, ill appearing Eyes: PERRL, EOMI. Anicteric, vision grossly intact. Ears: No ear pain, no ear discharge, Hearing grossly intact. Nose: No nasal discharge. Mouth/Throat: Moist mucous membranes, no redness, no lesions. Neck: Neck supple, non-tender, no cervical lymphadenopathy. Lungs: Clear YADY to auscultation and percussion, No accessory muscle use. Cardio: Normal S1/S2, regular rhythm, no murmurs, no JVD or carotid bruits. Abdomen: Soft, incisional site tender, no palpable masses, peristalsis hypoactive, no guarding or rebound. Extremities: Symmetrical, no significant deformities, no peripheral edema , non-tender, peripheral pulses presents. Skin: No rashes, no lesions, warm to touch. LIJ catheter w/o erythema or drainage. NG tube in place with bile colored output Neuro: No focal neurological deficits. motor and sensory intact Psych: Cooperative, appropriate mood and effect. I have reviewed the note and agree with the medical student's assessment & plan with exceptions as above. I have personally reviewed labs, imaging, home meds/prior records, examined the patient, formulated and discussed management plan with my attending Roney Ugalde PGY2 Disclaimer: Even though this this note was dictated by speech recognition and even though it was carefully revised there may still be minor errors in medical lab director due to voice recognition software. Documentation for date of: 07/28/25 Subjective Subjective Interval history: Spoke at length with patient and nurse this AM for updates. No overnight events, teleemtry showed sinus-sinus tach. Pt is on TPN, NG tube is in plac eand draining green fluid. Garsia is draining clear liquid. This morning she reports ongoing 8/10 pain around abodminal surgical site, otehrwise denies SOB, n/v/d, cough, fever/chills. She has not had a BM but reports passing 'very little' flatus following PT yesterday. Exam Vital Signs Temp Pulse Resp BP Pulse Ox O2 Del Method O2 Flow Rate 97.3 F 94 18 126/78 95 Room Air 1 07/28/25 08:00 07/28/25 08:00 07/28/25 08:00 07/28/25 08:00 07/28/25 08:00 07/28/25 08:00 07/27/25 16:00 Narrative Exam General: A/O x3, no acute distress, comfortably laying in bed, NG tube attached to RICHAR. Eyes: PERRL, EOMI. Anicteric, vision grossly intact. Ears: No ear pain, no ear discharge, Hearing grossly intact. Nose: No nasal discharge. Mouth/Throat: Moist mild mucous membranes, no redness, no lesions. Neck: Neck supple, non-tender, no cervical lymphadenopathy. Lungs: Clear to auscultation bilaterally, no rales/rhonchi/wheezes, no accessory muscle use. Cardio: Normal S1/S2, tachycardic, regular rhythm, no murmurs, no JVD Abdomen: Soft, tender around surgical incision, no guarding or rebound. Extremities: Symmetrical, no significant deformities, non-tender, peripheral pulses presents. Skin: No rashes, no lesions, warm to touch. Neuro: No focal neurological deficits. motor and sensory intact Psych: Cooperative, appropriate mood and effect. Objective Labs 07/29/25 05:02 07/29/25 05:02 Labs: Laboratory Results - last 24 hr 07/28/25 07/28/25 08:25 08:28 WBC 30.5 H D RBC 3.00 L Hgb 8.6 L Hct 25.9 L MCV 86 MCH 28.7 MCHC 33.2 RDW Std Deviation 51.3 H Plt Count 429 Neut % (Auto) 81 H Lymph % (Auto) 6 L [place] % (Auto) 7 Eos % (Auto) 2 Baso % (Auto) 1 Neut # (Auto) 24.9 H Lymph # (Auto) 1.7 [place] # (Auto) 2.0 H Eos # (Auto) 0.5 Baso # (Auto) 0.2 Immature Gran # (Auto) 1.31 H Absolute Nucleated RBC 0.02 H Immature Gran % 4 H Nucleated RBC % 0 Sodium 135 L Potassium 3.7 Chloride 100 Carbon Dioxide 26.4 Anion Gap 9 BUN 9 Creatinine 0.3 L Estim Creat Clear Calc 145.6 eGFR > 60 BUN/Creatinine Ratio 30 H Glucose 212 H Calculated Osmolality 274 L Calcium 7.4 L Corrected Calcium 8.8 Phosphorus 3.2 Magnesium 2.3 Total Bilirubin 0.3 AST 14 ALT < 7 L Alkaline Phosphatase 122 H Total Protein 4.9 L Albumin 2.2 L Globulin 2.7 Albumin/Globulin Ratio 0.8 L Quality Measures Quality Measures none Advance care planning discussed with:: patient Assessment & Plan Assessment Current Active Medications: Generic Name Dose Route Start Last Admin Trade Name Freq PRN Reason Stop Dose Admin Acetaminophen 650 mg 07/18/25 22:29 07/19/25 15:54 Acetaminophen 325 Mg Tablet PO 08/17/25 22:28 650 mg Q6H PRN Administration Fever >100.4 Dextrose 25 ml 07/27/25 11:54 Dextrose 50%-Water Inj 50 Ml Syringe IV 08/26/25 11:53 Q15MIN PRN BG 50-70 responsive npo pt Dextrose 50 ml 07/27/25 11:54 Dextrose 50%-Water Inj 50 Ml Syringe IV 08/26/25 11:53 Q15MIN PRN BG <50 OR BG <70 & pt unresponsive Glucagon 1 mg 07/27/25 11:54 Glucagon Inj 1 Mg Vial IM Q15MIN PRN BG <70, and no IV access Vancomycin HCl/Dextrose 250 mls @ 120 mls/hr 07/27/25 10:00 07/28/25 09:15 Vancomycin/D5w 1,250 Mg Ivpb IV 08/03/25 09:59 120 mls/hr Q12H SHAWNA Administration Protocol Fat Emulsion Intravenous 500 mls @ 32 mls/hr 07/27/25 18:00 07/27/25 17:03 Intralipid 20% Iv IV 08/26/25 17:59 32 mls/hr [email or web address] SHAWNA Administration Potassium Chloride 30 meq/ 2,034 mls @ 60 mls/hr 07/27/25 15:00 07/27/25 15:11 Magnesium Sulfate 2 gm/ IV 07/29/25 00:53 60 mls/hr Potassium Phosphate 15 mmol/ X1 ONE Administration Multivitamins/Minerals 10 ml/ Amino Acids/Electrolytes Piperacillin Sod/Tazobactam 100 mls @ 25 mls/hr 07/27/25 22:00 07/28/25 05:31 Sod 4.5 gm/ Sodium Chloride IV 08/03/25 21:59 25 mls/hr Q8HR SHAWNA Administration Protocol Insulin Human Lispro 0 unit 07/27/25 12:00 07/28/25 05:33 Insulin Lispro (Admelog) 1 Unit/0.01 Ml Unit SC 08/26/25 11:59 2 unit Q6HR SHAWNA Administration Protocol Morphine Sulfate 4 mg 07/26/25 17:23 07/28/25 09:15 Morphine Sulf Inj 4 Mg/Ml Vial IVP 07/31/25 17:22 4 mg Q4HR PRN Administration PAIN SCALE 7-10 (Severe Ondansetron HCl 4 mg 07/18/25 22:29 07/24/25 10:29 Ondansetron Inj 2 Mg/Ml Inj 2 Ml IVP 08/17/25 22:28 4 mg Q6H PRN Administration NAUSEA OR VOMITING Protocol Pharmacy Consult 1 each 07/25/25 12:30 Vancomycin Pharmacy To Dose 1 Each Each IV 08/24/25 12:29 QDAY PRN CONSULT Thiamine HCl 100 mg 07/23/25 09:00 07/28/25 09:14 Thiamine Inj 100 Mg/Ml Vial 2 Ml IVP 08/22/25 08:59 100 mg QDAY SHAWNA Administration Plan 65 yo F w/ PMH prediabetes, anemia presented with worsening of abdominal pain since yesterday, CT Scan shows Cecal Mass. #Invasive adenocarcinoma of ascending colon #S/P ex lap right hemicolectomy and ilio transverse anastomosis?POD 4 #Possible bowel perforation and abscess #E. coli bacteremia Patient presented with worsening abdominal pain since day before admit. WBCs today 16.[address] Abdomen in ED showed mass appearing to rise from the cecum. CEA this admit elevated at 34.7. Pt underwent colonoscopy this admit which revealed likely malignant and obstructive mass of ascending colon w/ Dr. Mc, and received surgical intervention as per HPI. Please see op note for details. Blood cultures positive for e.coli,, Central line placed 07/22/25 for TPN. XR Abdomen 07/24/25 showed diffuse stomach and bowel dilation, as per HPI an NG tube was placed for decompression. Pt was placed on NPO. Pt's edema improved. WBC today 20.9 from 16.9 yesterday. - Gensurg, GI, Oncology following. Dr. Weir (oncology) plans to interpret pathology of mass as available and follow up outpatient. Per Dr. Suggs and Dr. Mc will continue TPN and encourage ambulation to promote a bowel movement + IV abx as below. - Acetaminophen/Zofran for symptomatic relief - IV pip-tazo 4.5gm (07/20-), IV vancomycin (07/27-) - NPO #UTI #Secondary to Enterococcus and Pseudomonas Patient reported dysuria prior to arrival in the hospital, urine cultures positive for Enterococcus and Pseudomonas Repeat UA showed evidence of UTI; pt has no genitourinary symptoms currently. Urine in container this morning was clear. - Continue abx as above #Pericardial effusion Per CT ab/pelv in ED, 7mm effusion present. Possibly malignant in setting of large mass in the cecum/ colon. However pt is asymptomatic at this time, denies chest pain, SOB, palpitations. - Consider Echo, however not currently indicated #Normocytic Anemia Acute on chronic, at this time most likely 2/2 cecal mass/possible malignancy. Iron panel this admit showed low Iron 5, TIBC 135, Iron Sat 3, Ferritin however normal at 135. Most likely mixed picture in setting of chronic disease with additional complication of volume loss in setting of malignancy and surgery. Hgb 07/26/25- 9. Pt has no signs/sympoms of active bleed. - Trend CBCs #Elevated BP (resolved) On admission BP-160/85; pt has no HTN history and BP has been subsequently normal. - Monitor BP Disposition: Med-Surg DVT prophylaxis: SCDs GI prophylaxis: Diet: TPN Lines: PIV CODE STATUS: Full code This case was discussed with my attending physician, Dr. Saldaña, and senior resident, Dr. Alicia. Ethan CADENA Attending Provider Attestation/Addendum I have discussed and was present for the essential components of the history, physical examination, diagnosis, and treatment plan with the resident. I agree with the patient's care as documented by the resident and amended herein by me. Fernando Saldaña DO. Although this document has been carefully reviewed, there may still be some phonetic and other typographical errors. These errors are purely grammatical due to imperfections in the software program and should not be construed in any way to compromise the substance of the patient's medical care during this visit.
--- NOTE | 2025-07-28 09:35 | CHAP ---
Visited with patient and family member and had prayer.
--- NOTE | 2025-07-28 15:16 | PC.SS ---
rounding note: Patient still has not had a b.m. Notes indicate p.o. trial. Patient worked with PT yesterday. PT recommended SNF. SS will discuss with patient and son, Dionisio. Previously, Dionisio stated they wanted patient to return home with a family member and they were open to HH. When patient is closer to d/c, SS will follow up with family to determine if plan remains the same.
[2025-07-28 16:06] LABS: Band Neutrophils (Manual) 4 % (0-6); Lymphocytes (Manual) 8 % (20-44); Monocytes (Manual) 5 % (2-9); Neutrophils (Manual) 83 % (50-70)
[2025-07-28] MEDS: POT CHL ADDITIVE IV (17:20)
[2025-07-28] MEDS: CALCIUM GLUCONATE IV (17:20)
[2025-07-28] MEDS: [UNRECOGNIZED DRUG - OTHER] IV (17:20)
[2025-07-28] MEDS: MULTIVITAMIN IV (17:20)
--- NOTE | 2025-07-28 20:43 | PD.IMPROG ---
Documentation for date of: 07/28/25 Subjective Subjective Interval history: About 100 cc of NGT daily in the last 12 hours Still no bowel movement Physical therapy working with the patient She took few steps to the door and then back into the chair Exam Vital Signs Temp Pulse Resp BP Pulse Ox O2 Del Method O2 Flow Rate 97.1 F 108 H 17 127/73 93 L Room Air 1 07/28/25 20:00 07/28/25 20:02 07/28/25 20:00 07/28/25 20:00 07/28/25 20:00 07/28/25 20:00 07/27/25 16:00 Objective Labs 07/28/25 08:25 07/28/25 08:28 Labs: Laboratory Results - last 24 hr 07/28/25 07/28/25 08:25 08:28 WBC 30.5 H D RBC 3.00 L Hgb 8.6 L Hct 25.9 L MCV 86 MCH 28.7 MCHC 33.2 RDW Std Deviation 51.3 H Plt Count 429 Neut % (Auto) 81 H Lymph % (Auto) 6 L [place] % (Auto) 7 Eos % (Auto) 2 Baso % (Auto) 1 Neut # (Auto) 24.9 H Lymph # (Auto) 1.7 [place] # (Auto) 2.0 H Eos # (Auto) 0.5 Baso # (Auto) 0.2 Immature Gran # (Auto) 1.31 H Absolute Nucleated RBC 0.02 H Immature Gran % 4 H Neutrophils % (Manual) 83 H Monocytes % (Manual) 5 Nucleated RBC % 0 Band Neutrophils 4 Lymphocytes (Manual) 8 L Sodium 135 L Potassium 3.7 Chloride 100 Carbon Dioxide 26.4 Anion Gap 9 BUN 9 Creatinine 0.3 L Estim Creat Clear Calc 145.6 eGFR > 60 BUN/Creatinine Ratio 30 H Glucose 212 H Calculated Osmolality 274 L Calcium 7.4 L Corrected Calcium 8.8 Phosphorus 3.2 Magnesium 2.3 Total Bilirubin 0.3 AST 14 ALT < 7 L Alkaline Phosphatase 122 H Total Protein 4.9 L Albumin 2.2 L Globulin 2.7 Albumin/Globulin Ratio 0.8 L Impressions Impression: Invasive well-differentiated adenocarcinoma of the ascending colon and cecum with perforation requiring resection and ileotransverse anastomosis Very slow postoperative recovery Continue current management Assessment & Plan A&P Narrative 1. Large ascending colon mass, suspected cancer, attached to sigmoid colon status post right hemicolectomy ileotransverse anastomosis. 2. Significant leukocytosis pericardial effusion noted on CT UTI, appearing comfortable this a.m. with supportive care Postop day 1. 3. Will check pathology and follow patient upon discharge at the cancer treatment center. 4 Thank you very much for allowing me to evaluate this patient. Time Spent With Patient Time: Total time spent is greater than 50% in coordination of care (as documented) at patient's floor/unit and/or counseling patient:
[2025-07-28 21:57] LABS: Vancomycin,Trough 16.1 mcg/mL (5.0-10.0)
[2025-07-29] VITALS (10 sets, daily range): BP systolic 108–144; BP diastolic 71–87; PULSE 92–112; RESP 18–96; TEMP 36.1–36.6; O2SAT 94–96
[2025-07-29] MEDS: MORPHINE SULF INJ 4 MG/ML VIAL IVP ×4 (04:11→23:40)
[2025-07-29 05:41] LABS: Basophils # (Auto) 0.1 Thou/mm3 (0.0-0.2); Basophils % (Auto) 0 % (0-2.5); Eosinophils # (Auto) 0.5 Thou/mm3 (0.0-0.5); Eosinophils % (Auto) 2 % (0-10); Hematocrit 24.7 % (36.0-46.0); Immature Granulocytes Auto 0.89 Thou/mm3 (0.00-0.00); Lymphocytes # (Auto) 1.6 Thou/mm3 (1.0-4.8); Lymphocytes % (Auto) 7 % (10-50); Mean Corpuscular HGB Conc 33.2 g/dl (31.0-37.0); Mean Corpuscular Hemoglobin 29.0 pg (25.0-35.0); Mean Corpuscular Volume 87 fL (80-100); Monocytes # (Auto) 1.8 Thou/mm3 (0.0-0.8); Monocytes % (Auto) 8 % (0-12); Neutrophils # (Auto) 17.8 Thou/mm3 (1.8-7.7); Neutrophils % (Auto) 78 % (37-80); Nucleated Red Blood Cell # 0.00 Thou/mm3 (0.00-0.00); Nucleated Red Blood Cell % 0 /100 WBC (0); Platelet Count 470 Thou/mm3 (140-440); RDW Standard Deviation 54.6 fL (36.4-46.3); Red Blood Count 2.83 Miln/mm3 (4.00-5.20); White Blood Count 22.7 Thou/mm3 (3.6-11.0)
[2025-07-29 05:44] LABS: Hemoglobin 8.2 g/dL (12.0-16.0)
[2025-07-29] MEDS: INSULIN LISPRO (AdmeLOG) 1 UNIT/0.01 ML UNIT SC ×4 (05:58→23:57)
[2025-07-29] MEDS: PIPER/TAZO INJ 4.5 GM in SODIUM CHLORIDE 0.9% (POP) 100 ML IV ×3 (05:59→21:12)
[2025-07-29 06:17] LABS: Alanine Aminotransferase < 7 U/L (10-49); Albumin, Serum 2.2 gm/dL (3.4-4.8); Albumin/Globulin Ratio 0.8 (1.2-2.2); Alkaline Phosphatase 124 U/L (46-116); Anion Gap 9 (7-16); Aspartate Amino Transferase 17 U/L (0-34); BUN/Creatinine Ratio 23 Ratio (12-20); Bilirubin,Total 0.3 mg/dL (0.3-1.2); Blood Urea Nitrogen 9 mg/dL (9-23); Calcium 7.6 mg/dL (8.3-10.6); Calcium (Corrected) 9.0 mg/dL (8.5-10.1); Carbon Dioxide 24.5 mMol/L (20.0-31.0); Chloride 102 mMol/L (98-107); Creatinine (Component) 0.4 mg/dL (0.6-1.3); Estimated Creatinine Clearance 109.2 mL/min (>60); Globulin 2.9 gm/dL (2.3-3.5); Glucose 158 mg/dL (74-106); Magnesium 2.3 mg/dL (1.6-2.6); Osmolality,Calculated 271 (275-295); Phosphorous 3.8 mg/dL (2.4-5.1); Potassium 4.2 mMol/L (3.4-5.1); Sodium 135 mMol/L (136-145); Total Protein 5.1 gm/dL (5.7-8.2); eGFR > 60 See Note
[2025-07-29] MEDS: VANCOMYCIN/D5W 1,250 MG IVPB 250 ML 120 MG IV ×2 (09:05→21:12)
[2025-07-29] MEDS: THIAMINE INJ 100 MG/ML VIAL 2 ML IVP (09:05)
--- NOTE | 2025-07-29 10:02 | PD.SURPROG ---
Documentation for date of: 07/29/25 Subjective Subjective Brief History: History presents revealed that the patient has been having some chronic pain in the lower abdomen since last February. Patient denies any history of nausea or vomiting or change in the bowel habits. Patient denies any history of blood in the stools. She has however lost about 20 pounds and has not been feeling well. She is also weak. She denies any other major medical illness. She came to the emergency room with with increasing pain. Narrative: The patient has not made a significant improvement in her general condition. She is not showing any signs of deterioration either. She is not having any bowel movements but is passing some gas now and then. Abdomen has good bowel sounds Exam Vital Signs Temp Pulse Resp BP Pulse Ox O2 Del Method O2 Flow Rate 97.5 F 104 H 18 108/82 94 L Room Air 1 07/29/25 07:07 07/29/25 07:22 07/29/25 07:22 07/29/25 07:07 07/29/25 07:07 07/29/25 07:07 07/27/25 16:00 Vital signs are normal other than tachycardia Routine Abdominal Exam Comments: Bowel sounds are heard and are active in the abdomen. NG tube drainage still is greenish colored and it is not decreased despite few days of NG decompression Results Results: Laboratory Laboratory Narrative: Laboratory results show mild improvement in leukocytosis Assessment & Plan Assessment Additional comments: Pression: Slow recovery from the surgery because of positive blood cultures and her bilateral pneumonia and probably ongoing ileus Plan Plan: We shall continue TPN to provide all the calories but not worry about feeding her. I will check her today with an abdominal x-ray PROCEDURES: Procedures Exploratory laparotomy and right hemicolectomy and ilio transverse colostomy
--- NOTE | 2025-07-29 10:05 | XR_ITS ---
EXAMINATION: Abdomen 2 views TECHNIQUE: Upright supine abdomen AP 2 views Date and time: July 29, 2025, 1104 hours COMPARISON: July 24, 2025 FINDINGS: Orogastric tube tip distal stomach versus duodenal bulb Mildly distended small bowel loops No free air No obstruction Atelectasis versus pneumonia left base IMPRESSION: Mild small bowel ileus
--- NOTE | 2025-07-29 11:16 | ESPR_ITS ---
Documentation for date of: 07/29/25 Subjective Subjective Interval history: Patient was seen evaluated bedside this morning. No acute overnight events. Patient's WBC are downtrending and she has not spiked any fevers. Still quite a large amount of output coming from NG tube. Otherwise no other complaints at this time. Passing gas, but no BM. Will continue with IV antibiotics for now and general surgery ordered abdominal x-ray. Will follow-up on the x-ray. Exam Vital Signs Temp Pulse Resp BP Pulse Ox O2 Del Method O2 Flow Rate 97.5 F 104 H 18 108/82 94 L Room Air 1 07/29/25 07:07 07/29/25 07:22 07/29/25 07:22 07/29/25 07:07 07/29/25 07:07 07/29/25 07:07 07/27/25 16:00 Narrative Exam General: A/O x3, no acute distress, ill appearing Eyes: PERRL, EOMI. Anicteric, vision grossly intact. Ears: No ear pain, no ear discharge, Hearing grossly intact. Nose: No nasal discharge. Mouth/Throat: Moist mucous membranes, no redness, no lesions. Neck: Neck supple, non-tender, no cervical lymphadenopathy. Lungs: Clear YADY to auscultation and percussion, No accessory muscle use. Cardio: Normal S1/S2, regular rhythm, no murmurs, no JVD or carotid bruits. Abdomen: Soft, incisional site tender, no palpable masses, peristalsis hypoactive, no guarding or rebound. Extremities: Symmetrical, no significant deformities, no peripheral edema , non-tender, peripheral pulses presents. Skin: No rashes, no lesions, warm to touch. LIJ catheter w/o erythema or drainage. NG tube in place with bile colored output Neuro: No focal neurological deficits. motor and sensory intact Psych: Cooperative, appropriate mood and effect. Objective Labs 07/29/25 05:02 07/29/25 05:02 Labs: Laboratory Results - last 24 hr 07/28/25 07/28/25 07/29/25 08:25 21:03 05:02 WBC 22.7 H D RBC 2.83 L Hgb 8.2 L Hct 24.7 L MCV 87 MCH 29.0 MCHC 33.2 RDW Std Deviation 54.6 H Plt Count 470 H D Neut % (Auto) 78 Lymph % (Auto) 7 L [place] % (Auto) 8 Eos % (Auto) 2 Baso % (Auto) 0 Neut # (Auto) 17.8 H Lymph # (Auto) 1.6 [place] # (Auto) 1.8 H Eos # (Auto) 0.5 Baso # (Auto) 0.1 Immature Gran # (Auto) 0.89 H Absolute Nucleated RBC 0.00 Immature Gran % 4 H Neutrophils % (Manual) 83 H Monocytes % (Manual) 5 Nucleated RBC % 0 Band Neutrophils 4 Lymphocytes (Manual) 8 L Sodium 135 L Potassium 4.2 D Chloride 102 Carbon Dioxide 24.5 Anion Gap 9 BUN 9 Creatinine 0.4 L Estim Creat Clear Calc 109.2 eGFR > 60 BUN/Creatinine Ratio 23 H Glucose 158 H D Calculated Osmolality 271 L Calcium 7.6 L Corrected Calcium 9.0 Phosphorus 3.8 Magnesium 2.3 Total Bilirubin 0.3 AST 17 ALT < 7 L Alkaline Phosphatase 124 H Total Protein 5.1 L Albumin 2.2 L Globulin 2.9 Albumin/Globulin Ratio 0.8 L Vancomycin Trough 16.1 H Quality Measures Quality Measures none Advance care planning discussed with:: patient Assessment & Plan Assessment Current Active Medications: Generic Name Dose Route Start Last Admin Trade Name Freq PRN Reason Stop Dose Admin Acetaminophen 650 mg 07/18/25 22:29 07/19/25 15:54 Acetaminophen 325 Mg Tablet PO 08/17/25 22:28 650 mg Q6H PRN Administration Fever >100.4 Dextrose 25 ml 07/27/25 11:54 Dextrose 50%-Water Inj 50 Ml Syringe IV 08/26/25 11:53 Q15MIN PRN BG 50-70 responsive npo pt Dextrose 50 ml 07/27/25 11:54 Dextrose 50%-Water Inj 50 Ml Syringe IV 08/26/25 11:53 Q15MIN PRN BG <50 OR BG <70 & pt unresponsive Glucagon 1 mg 07/27/25 11:54 Glucagon Inj 1 Mg Vial IM Q15MIN PRN BG <70, and no IV access Vancomycin HCl/Dextrose 250 mls @ 120 mls/hr 07/27/25 10:00 07/29/25 09:05 Vancomycin/D5w 1,250 Mg Ivpb IV 08/03/25 09:59 120 mls/hr Q12H SHAWNA Administration Protocol Fat Emulsion Intravenous 500 mls @ 32 mls/hr 07/27/25 18:00 07/27/25 17:03 Intralipid 20% Iv IV 08/26/25 17:59 32 mls/hr [email or web address] SHAWNA Administration Piperacillin Sod/Tazobactam 100 mls @ 25 mls/hr 07/27/25 22:00 07/29/25 05:59 Sod 4.5 gm/ Sodium Chloride IV 08/03/25 21:59 25 mls/hr Q8HR SHAWNA Administration Protocol Potassium Chloride 60 meq/ 2,050 mls @ 60 mls/hr 07/28/25 16:30 07/28/25 17:20 Multivitamins/Minerals 10 ml/ IV 07/30/25 02:39 60 mls/hr Calcium Gluconate 1 gm/ Amino X1 ONE Administration Acids/Electrolytes Insulin Human Lispro 0 unit 07/27/25 12:00 07/29/25 05:58 Insulin Lispro (Admelog) 1 Unit/0.01 Ml Unit SC 08/26/25 11:59 1 unit Q6HR SHAWNA Administration Protocol Morphine Sulfate 4 mg 07/26/25 17:23 07/29/25 09:05 Morphine Sulf Inj 4 Mg/Ml Vial IVP 07/31/25 17:22 4 mg Q4HR PRN Administration PAIN SCALE 7-10 (Severe Ondansetron HCl 4 mg 07/18/25 22:29 07/24/25 10:29 Ondansetron Inj 2 Mg/Ml Inj 2 Ml IVP 08/17/25 22:28 4 mg Q6H PRN Administration NAUSEA OR VOMITING Protocol Pharmacy Consult 1 each 07/25/25 12:30 Vancomycin Pharmacy To Dose 1 Each Each IV 08/24/25 12:29 QDAY PRN CONSULT Thiamine HCl 100 mg 07/23/25 09:00 07/29/25 09:05 Thiamine Inj 100 Mg/Ml Vial 2 Ml IVP 08/22/25 08:59 100 mg QDAY SHAWNA Administration Plan 65 yo F w/ PMH prediabetes, anemia presented with worsening of abdominal pain since yesterday, CT Scan shows Cecal Mass. #Invasive adenocarcinoma of ascending colon #S/P ex lap right hemicolectomy and ilio transverse anastomosis?POD 4 #E. coli bacteremia Patient presented with worsening abdominal pain since day before admit. WBCs today 16.[address] Abdomen in ED showed mass appearing to rise from the cecum. CEA this admit elevated at 34.7. Pt underwent colonoscopy this admit which revealed likely malignant and obstructive mass of ascending colon w/ Dr. Mc, and received surgical intervention as per HPI. Please see op note for details. Blood cultures positive for e.coli,, Central line placed 07/22/25 for TPN. XR Abdomen 07/24/25 showed diffuse stomach and bowel dilation, as per HPI an NG tube was placed for decompression. Pt was placed on NPO. WBC today 22.7 from 30.5 yesterday. - Gensurg, GI, Oncology following. Dr. Weir (oncology) plans to interpret pathology of mass as available and follow up outpatient. Per Dr. Suggs and Dr. Mc will continue TPN and encourage ambulation to promote a bowel movement + IV abx as below. - Acetaminophen/Zofran for symptomatic relief - IV pip-tazo 4.5gm (07/20-), IV vancomycin (07/27-) - NPO until has a BM - Abd Xr ordered by surgery today #UTI #Secondary to Enterococcus and Pseudomonas Patient reported dysuria prior to arrival in the hospital, urine cultures positive for Enterococcus and Pseudomonas Repeat UA showed evidence of UTI; pt has no genitourinary symptoms currently. Urine in container this morning was clear. - Continue abx as above #Pericardial effusion Per CT ab/pelv in ED, 7mm effusion present. Possibly malignant in setting of large mass in the cecum/ colon. However pt is asymptomatic at this time, denies chest pain, SOB, palpitations. - Consider Echo, however not currently indicated #Normocytic Anemia Acute on chronic, at this time most likely 2/2 cecal mass/possible malignancy. Iron panel this admit showed low Iron 5, TIBC 135, Iron Sat 3, Ferritin however normal at 135. Most likely mixed picture in setting of chronic disease with additional complication of volume loss in setting of malignancy and surgery. Hgb 07/26/25- 9. Pt has no signs/sympoms of active bleed. - Trend CBCs #Elevated BP (resolved) On admission BP-160/85; pt has no HTN history and BP has been subsequently normal. - Monitor BP Disposition: Pending BM. Diet: NPO GI prophylaxis: none DVT prophylaxis: SCDs Code: Full Case disclosed with Attending Dr. Piper Ugalde PGY2 Disclaimer: Even though this this note was dictated by speech recognition and even though it was carefully revised there may still be minor errors in computer installation engineer due to voice recognition software. Attending Provider Attestation/Addendum I have discussed and was present for the essential components of the history, physical examination, diagnosis, and treatment plan with the resident. I agree with the patient's care as documented by the resident and amended herein by me. Fernando Saldaña, DO. Although this document has been carefully reviewed, there may still be some phonetic and other typographical errors. These errors are purely grammatical due to imperfections in the software program and should not be construed in any way to compromise the substance of the patient's medical care during this visit. Patient seen and evaluated this AM. No acute events overnight, vital signs stable, patient afebrile, NG tube output approximately 200 mL at time of bedside visit. Patient now POD 8 from exploratory laparotomy and right hemicolectomy with ileotransverse colostomy. The patient did have a large mass removed, diagnosed to be well-differentiated adenocarcinoma. Surgical margins were negative. Patient was started on oral feeds shortly after surgery and became nauseous and vomited hence we made the patient n.p.o., started the patient on TPN per surgery recommendations, the patient has been passing flatus, once she has a BM, can likely transition to oral diet pending surgery recommendations. A KUB was performed today demonstrating mild small bowel ileus. Per blood cultures on 07/20, patient noted to be bacteremic, E. coli growing 1 set from the aerobic bottle, patient also noted to have UTI from urine cultures on 07/20 growing Enterococcus and Pseudomonas. Patient has been on vancomycin and Zosyn to cover all the organisms for over 10 days, can likely be DC'd tomorrow if okay with general surgery. Will continue to monitor closely, likely DC in 2 to 3 days pending continued improvement and specialist recommendations.
[2025-07-29] MEDS: [UNRECOGNIZED DRUG - OTHER] IV (17:52)
[2025-07-29] MEDS: AMINO ACID IV (17:52)
[2025-07-29] MEDS: FAT EMULSIONS 20% IV 500 ML 32 ML IV (17:52)
[2025-07-29] MEDS: CALCIUM GLUCONATE IV (17:52)
--- NOTE | 2025-07-29 21:06 | PD.IMPROG ---
Documentation for date of: 07/29/25 Subjective Subjective Interval history: WBC count dropping to 22.7 from 30K and hemoglobin hematocrit 8.2 and 27.7 with a platelet count of 470,000 Passing some flatus KUB shows no evidence of any small bowel or colonic obstruction Passing some flatus Abdomen not distended Positive bowel sounds Exam Vital Signs Temp Pulse Resp BP Pulse Ox O2 Del Method O2 Flow Rate 97.9 F 109 H 19 144/87 H 94 L Room Air 1 07/29/25 20:00 07/29/25 20:00 07/29/25 20:00 07/29/25 20:00 07/29/25 20:00 07/29/25 20:00 07/27/25 16:00 Objective Labs 07/29/25 05:02 07/29/25 05:02 Labs: Laboratory Results - last 24 hr 07/28/25 07/29/25 21:03 05:02 WBC 22.7 H D RBC 2.83 L Hgb 8.2 L Hct 24.7 L MCV 87 MCH 29.0 MCHC 33.2 RDW Std Deviation 54.6 H Plt Count 470 H D Neut % (Auto) 78 Lymph % (Auto) 7 L [place] % (Auto) 8 Eos % (Auto) 2 Baso % (Auto) 0 Neut # (Auto) 17.8 H Lymph # (Auto) 1.6 [place] # (Auto) 1.8 H Eos # (Auto) 0.5 Baso # (Auto) 0.1 Immature Gran # (Auto) 0.89 H Absolute Nucleated RBC 0.00 Immature Gran % 4 H Nucleated RBC % 0 Sodium 135 L Potassium 4.2 D Chloride 102 Carbon Dioxide 24.5 Anion Gap 9 BUN 9 Creatinine 0.4 L Estim Creat Clear Calc 109.2 eGFR > 60 BUN/Creatinine Ratio 23 H Glucose 158 H D Calculated Osmolality 271 L Calcium 7.6 L Corrected Calcium 9.0 Phosphorus 3.8 Magnesium 2.3 Total Bilirubin 0.3 AST 17 ALT < 7 L Alkaline Phosphatase 124 H Total Protein 5.1 L Albumin 2.2 L Globulin 2.9 Albumin/Globulin Ratio 0.8 L Vancomycin Trough 16.1 H Impressions Impression: Status post exploratory laparotomy with resection of the ascending colon and cecal invasive adenocarcinoma requiring ileotransverse anastomosis Slow postoperative recovery Continue TPN Encourage ambulation Assessment & Plan A&P Narrative 1. Large ascending colon mass, suspected cancer, attached to sigmoid colon status post right hemicolectomy ileotransverse anastomosis. 2. Significant leukocytosis pericardial effusion noted on CT UTI, appearing comfortable this a.m. with supportive care Postop day 1. 3. Will check pathology and follow patient upon discharge at the cancer treatment center. 4 Thank you very much for allowing me to evaluate this patient. Time Spent With Patient Time: Total time spent is greater than 50% in coordination of care (as documented) at patient's floor/unit and/or counseling patient:
[2025-07-30] VITALS (10 sets, daily range): BP systolic 116–139; BP diastolic 73–93; PULSE 89–118; RESP 15–99; TEMP 36.1–36.9; O2SAT 94–96; BMI 31.2; BMI 31.1
[2025-07-30] MEDS: MORPHINE SULF INJ 4 MG/ML VIAL IVP ×4 (03:40→18:03)
[2025-07-30] MEDS: PIPER/TAZO INJ 4.5 GM in SODIUM CHLORIDE 0.9% (POP) 100 ML IV ×3 (05:51→21:29)
[2025-07-30 05:54] LABS: Basophils # (Auto) 0.1 Thou/mm3 (0.0-0.2); Basophils % (Auto) 0 % (0-2.5); Eosinophils # (Auto) 0.4 Thou/mm3 (0.0-0.5); Eosinophils % (Auto) 2 % (0-10); Hematocrit 23.6 % (36.0-46.0); Immature Granulocytes Auto 0.68 Thou/mm3 (0.00-0.00); Lymphocytes # (Auto) 1.5 Thou/mm3 (1.0-4.8); Lymphocytes % (Auto) 6 % (10-50); Mean Corpuscular HGB Conc 33.5 g/dl (31.0-37.0); Mean Corpuscular Hemoglobin 29.3 pg (25.0-35.0); Mean Corpuscular Volume 87 fL (80-100); Monocytes # (Auto) 1.7 Thou/mm3 (0.0-0.8); Monocytes % (Auto) 8 % (0-12); Neutrophils # (Auto) 18.5 Thou/mm3 (1.8-7.7); Neutrophils % (Auto) 81 % (37-80); Nucleated Red Blood Cell # 0.00 Thou/mm3 (0.00-0.00); Nucleated Red Blood Cell % 0 /100 WBC (0); Platelet Count 493 Thou/mm3 (140-440); RDW Standard Deviation 53.5 fL (36.4-46.3); Red Blood Count 2.70 Miln/mm3 (4.00-5.20); White Blood Count 22.9 Thou/mm3 (3.6-11.0)
[2025-07-30] MEDS: INSULIN LISPRO (AdmeLOG) 1 UNIT/0.01 ML UNIT SC ×4 (05:54→23:37)
[2025-07-30 06:23] LABS: Hemoglobin 7.9 g/dL (12.0-16.0)
[2025-07-30 06:41] LABS: Alanine Aminotransferase 9 U/L (10-49); Albumin, Serum 2.4 gm/dL (3.4-4.8); Albumin/Globulin Ratio 0.9 (1.2-2.2); Alkaline Phosphatase 187 U/L (46-116); Anion Gap 8 (7-16); Aspartate Amino Transferase 23 U/L (0-34); BUN/Creatinine Ratio 23 Ratio (12-20); Bilirubin,Total 0.3 mg/dL (0.3-1.2); Blood Urea Nitrogen 9 mg/dL (9-23); Calcium 7.7 mg/dL (8.3-10.6); Calcium (Corrected) 9.0 mg/dL (8.5-10.1); Carbon Dioxide 25.3 mMol/L (20.0-31.0); Chloride 102 mMol/L (98-107); Creatinine (Component) 0.4 mg/dL (0.6-1.3); Estimated Creatinine Clearance 109.2 mL/min (>60); Globulin 2.8 gm/dL (2.3-3.5); Glucose 196 mg/dL (74-106); Magnesium 2.0 mg/dL (1.6-2.6); Osmolality,Calculated 273 (275-295); Phosphorous 4.0 mg/dL (2.4-5.1); Potassium 3.6 mMol/L (3.4-5.1); Sodium 135 mMol/L (136-145); Total Protein 5.2 gm/dL (5.7-8.2); eGFR > 60 See Note
[2025-07-30] MEDS: THIAMINE INJ 100 MG/ML VIAL 2 ML IVP (08:14)
--- NOTE | 2025-07-30 09:22 | CHAP ---
Patient expressed gratitude for visit and prayer.
[2025-07-30] MEDS: VANCOMYCIN/D5W 1,250 MG IVPB 250 ML 120 MG IV ×2 (10:24→21:29)
--- NOTE | 2025-07-30 13:40 | PD.HHPROG ---
Documentation for date of: 07/30/25 Subjective - Hospitalist Subjective Interval history: Patient seen and examined at bedside this morning. Sitting comfortably on chair, denies any new complaints. Family at bedside states patient appears more alert and comfortable compared to yesterday. Continues to be on NG tube with intermittent suction. Drainage has been slowing down. WBC count is 22.9, no significant change compared to yesterday. Continues to be slightly tachycardic. Patient is still has not have any bowel movements.Abdominal x-ray was obtained yesterday as recommended by general surgery, showed mild small bowel ileus. We will continue to encourage patient to ambulate and monitor closely for bowel movement. Continues to be on TPN. Vital signs are stable except for tachycardia. Chemistry Panel remains stable as well. Continues to be on IV vancomycin and Zosyn. Denies any nausea or vomiting. Review of Systems Review of Systems Systems Reviewed: All systems reviewed, normal except as documented Exam Vital Signs Temp Pulse Resp BP Pulse Ox O2 Del Method O2 Flow Rate 97.4 F 117 H 15 128/76 96 Room Air 1 07/30/25 20:00 07/30/25 20:00 07/30/25 20:00 07/30/25 20:00 07/30/25 20:00 07/30/25 20:00 07/30/25 08:00 Narrative General: A/O x4, no acute distress, ill appearing, sitting comfortably on chair Eyes: PERRL, EOMI. Anicteric, vision grossly intact. ENT: Moist mucous membranes, no redness, no lesions. NG tube in place with drainage of greenish fluid Neck: Neck supple, non-tender, no cervical lymphadenopathy. Lungs: Clear YADY to auscultation and percussion, No accessory muscle use. Cardio: Normal S1/S2, regular rhythm, no murmurs, no JVD or carotid bruits. Abdomen: Soft, mild tenderness around incisional site, no palpable masses, hypoactive bowel sound Extremities: Symmetrical, no significant deformities, no peripheral edema , non-tender, peripheral pulses presents. Skin: No rashes, no lesions, warm to touch. LIJ catheter w/o erythema or drainage. NG tube in place with bile colored output Neuro: No focal neurological deficits. motor and sensory intact Psych: Cooperative, appropriate mood and effect. Objective - Hospitalist Labs Diagram: 07/30/25 05:40 07/30/25 05:40 Labs: Laboratory Results - last 24 hr 07/30/25 05:40 WBC 22.9 H RBC 2.70 L Hgb 7.9 L Hct 23.6 L MCV 87 MCH 29.3 MCHC 33.5 RDW Std Deviation 53.5 H Plt Count 493 H Neut % (Auto) 81 H Lymph % (Auto) 6 L [place] % (Auto) 8 Eos % (Auto) 2 Baso % (Auto) 0 Neut # (Auto) 18.5 H Lymph # (Auto) 1.5 [place] # (Auto) 1.7 H Eos # (Auto) 0.4 Baso # (Auto) 0.1 Immature Gran # (Auto) 0.68 H Absolute Nucleated RBC 0.00 Immature Gran % 3 H Nucleated RBC % 0 Sodium 135 L Potassium 3.6 D Chloride 102 Carbon Dioxide 25.3 Anion Gap 8 BUN 9 Creatinine 0.4 L Estim Creat Clear Calc 109.2 eGFR > 60 BUN/Creatinine Ratio 23 H Glucose 196 H Calculated Osmolality 273 L Calcium 7.7 L Corrected Calcium 9.0 Phosphorus 4.0 Magnesium 2.0 Total Bilirubin 0.3 AST 23 ALT 9 L Alkaline Phosphatase 187 H D Total Protein 5.2 L Albumin 2.4 L Globulin 2.8 Albumin/Globulin Ratio 0.9 L Assessment & Plan Plan: 65 yo F w/ PMH prediabetes, anemia presented with worsening of abdominal pain since yesterday, CT Scan shows Cecal Mass. #Invasive adenocarcinoma of ascending colon #S/P ex lap right hemicolectomy and ilio transverse anastomosis?POD 4 #E. coli bacteremia Patient presented with worsening abdominal pain since day before admit. WBCs today 16.9 from [address] Abdomen in ED showed mass appearing to rise from the cecum. CEA this admit elevated at 34.7. Pt underwent colonoscopy this admit which revealed likely malignant and obstructive mass of ascending colon w/ Dr. Mc, and received surgical intervention as per HPI. Please see op note for details. Blood cultures positive for e.coli, Central line placed 07/22/25 for TPN. XR Abdomen 07/24/25 showed diffuse stomach and bowel dilation, as per HPI an NG tube was placed for decompression. Pt was placed on NPO. WBC today 22.7 from 30.5 yesterday. - Gensurg, GI, Oncology following. Dr. Wier (oncology) plans to interpret pathology of mass as available and follow up outpatient. Per Dr. Suggs and Dr. Mc will continue TPN and encourage ambulation to promote a bowel movement + IV abx as below. - Acetaminophen/Zofran for symptomatic relief - IV pip-tazo 4.5gm (07/20-), IV vancomycin (07/27-) - NPO until has a BM - Abd Xr showed Ileus - Encouraging ambulation #UTI #Secondary to Enterococcus and Pseudomonas Patient reported dysuria prior to arrival in the hospital, urine cultures positive for Enterococcus and Pseudomonas Repeat UA showed evidence of UTI; pt has no genitourinary symptoms currently. Urine in container this morning was clear. - Continue abx as above #Pericardial effusion Per CT ab/pelv in ED, 7mm effusion present. Possibly malignant in setting of large mass in the cecum/ colon. However pt is asymptomatic at this time, denies chest pain, SOB, palpitations. #Normocytic Anemia Acute on chronic, at this time most likely 2/2 cecal mass/possible malignancy. Iron panel this admit showed low Iron 5, TIBC 135, Iron Sat 3, Ferritin however normal at 135. Most likely mixed picture in setting of chronic disease with additional complication of volume loss in setting of malignancy and surgery. Hgb 07/26/25- 9. Pt has no signs/sympoms of active bleed. - Trend CBCs, no obvious bleeding noted #Elevated BP (resolved) On admission BP-160/85; pt has no HTN history and BP has been subsequently normal. - Monitor BP, currently stable Disposition: Pending BM. Diet: NPO GI prophylaxis: none DVT prophylaxis: SCDs Code: Full Logan Mendiola MD Time Spent with Patient Time: Total time spent is greater than 50% in coordination of care (as documented) at patient's floor/unit and/or counseling patient: Time with patient: Greater than 35 minutes Reason for Continued Stay Reason for continued stay: further monitoring Quality Measures Quality Measures none Advance care planning discussed with:: patient and child
[2025-07-30] MEDS: AMINO ACID IV (18:02)
[2025-07-30] MEDS: POT CHL ADDITIVE IV (18:02)
[2025-07-30] MEDS: [UNRECOGNIZED DRUG - OTHER] IV (18:02)
--- NOTE | 2025-07-30 19:07 | ESPR_ITS ---
Documentation for date of: 07/30/25 Subjective Subjective Interval history: No major change in the status no signs of obstruction on the EGD Exam Vital Signs Temp Pulse Resp BP Pulse Ox O2 Del Method O2 Flow Rate 97.0 F 118 H 18 116/73 95 Room Air 1 07/30/25 16:00 07/30/25 17:00 07/30/25 16:00 07/30/25 16:00 07/30/25 16:00 07/30/25 16:00 07/30/25 08:00 Objective Labs 07/30/25 05:40 07/30/25 05:40 Labs: Laboratory Results - last 24 hr 07/30/25 05:40 WBC 22.9 H RBC 2.70 L Hgb 7.9 L Hct 23.6 L MCV 87 MCH 29.3 MCHC 33.5 RDW Std Deviation 53.5 H Plt Count 493 H Neut % (Auto) 81 H Lymph % (Auto) 6 L [place] % (Auto) 8 Eos % (Auto) 2 Baso % (Auto) 0 Neut # (Auto) 18.5 H Lymph # (Auto) 1.5 [place] # (Auto) 1.7 H Eos # (Auto) 0.4 Baso # (Auto) 0.1 Immature Gran # (Auto) 0.68 H Absolute Nucleated RBC 0.00 Immature Gran % 3 H Nucleated RBC % 0 Sodium 135 L Potassium 3.6 D Chloride 102 Carbon Dioxide 25.3 Anion Gap 8 BUN 9 Creatinine 0.4 L Estim Creat Clear Calc 109.2 eGFR > 60 BUN/Creatinine Ratio 23 H Glucose 196 H Calculated Osmolality 273 L Calcium 7.7 L Corrected Calcium 9.0 Phosphorus 4.0 Magnesium 2.0 Total Bilirubin 0.3 AST 23 ALT 9 L Alkaline Phosphatase 187 H D Total Protein 5.2 L Albumin 2.4 L Globulin 2.8 Albumin/Globulin Ratio 0.9 L Impressions Impression: Status post right hemicolectomy with ileotransverse anastomosis Problem continue supportive care Assessment & Plan A&P Narrative 1. Large ascending colon mass, suspected cancer, attached to sigmoid colon status post right hemicolectomy ileotransverse anastomosis. 2. Significant leukocytosis pericardial effusion noted on CT UTI, appearing comfortable this a.m. with supportive care Postop day 1. 3. Will check pathology and follow patient upon discharge at the cancer treatment center. 4 Thank you very much for allowing me to evaluate this patient. Time Spent With Patient Time: Total time spent is greater than 50% in coordination of care (as documented) at patient's floor/unit and/or counseling patient:
[2025-07-31] VITALS: BP 137/76; PULSE 113; RESP 15; TEMP 36.7; O2SAT 93
[2025-07-31] MEDS: MORPHINE SULF INJ 4 MG/ML VIAL IVP ×5 (02:28→21:52)
[2025-07-31 04:00] VITALS: BP 128/75; PULSE 113; RESP 15; TEMP 36.2; O2SAT 93
[2025-07-31] MEDS: PIPER/TAZO INJ 4.5 GM in SODIUM CHLORIDE 0.9% (POP) 100 ML IV ×3 (05:36→21:14)
[2025-07-31] MEDS: INSULIN LISPRO (AdmeLOG) 1 UNIT/0.01 ML UNIT SC ×4 (05:45→23:41)
[2025-07-31 05:53] LABS: Basophils # (Auto) 0.1 Thou/mm3 (0.0-0.2); Basophils % (Auto) 1 % (0-2.5); Eosinophils # (Auto) 0.3 Thou/mm3 (0.0-0.5); Eosinophils % (Auto) 2 % (0-10); Hematocrit 23.1 % (36.0-46.0); Immature Granulocytes Auto 0.38 Thou/mm3 (0.00-0.00); Lymphocytes # (Auto) 1.4 Thou/mm3 (1.0-4.8); Lymphocytes % (Auto) 7 % (10-50); Mean Corpuscular HGB Conc 32.5 g/dl (31.0-37.0); Mean Corpuscular Hemoglobin 28.6 pg (25.0-35.0); Mean Corpuscular Volume 88 fL (80-100); Monocytes # (Auto) 1.8 Thou/mm3 (0.0-0.8); Monocytes % (Auto) 9 % (0-12); Neutrophils # (Auto) 17.0 Thou/mm3 (1.8-7.7); Neutrophils % (Auto) 81 % (37-80); Nucleated Red Blood Cell # 0.00 Thou/mm3 (0.00-0.00); Nucleated Red Blood Cell % 0 /100 WBC (0); Platelet Count 526 Thou/mm3 (140-440); RDW Standard Deviation 53.8 fL (36.4-46.3); Red Blood Count 2.62 Miln/mm3 (4.00-5.20); White Blood Count 20.9 Thou/mm3 (3.6-11.0)
[2025-07-31 06:00] VITALS: BMI 30.3
[2025-07-31 06:06] LABS: Hemoglobin 7.5 g/dL (12.0-16.0)
[2025-07-31 06:34] LABS: Alanine Aminotransferase 7 U/L (10-49); Albumin, Serum 2.4 gm/dL (3.4-4.8); Albumin/Globulin Ratio 0.8 (1.2-2.2); Alkaline Phosphatase 183 U/L (46-116); Anion Gap 9 (7-16); Aspartate Amino Transferase 26 U/L (0-34); BUN/Creatinine Ratio 18 Ratio (12-20); Bilirubin,Total 0.5 mg/dL (0.3-1.2); Blood Urea Nitrogen 18 mg/dL (9-23); Calcium 8.1 mg/dL (8.3-10.6); Calcium (Corrected) 9.4 mg/dL (8.5-10.1); Carbon Dioxide 23.9 mMol/L (20.0-31.0); Chloride 105 mMol/L (98-107); Creatinine (Component) 1.0 mg/dL (0.6-1.3); Estimated Creatinine Clearance 43.1 mL/min (>60); Globulin 3.0 gm/dL (2.3-3.5); Glucose 193 mg/dL (74-106); Magnesium 2.2 mg/dL (1.6-2.6); Osmolality,Calculated 282 (275-295); Phosphorous 4.5 mg/dL (2.4-5.1); Potassium 3.7 mMol/L (3.4-5.1); Sodium 138 mMol/L (136-145); Total Protein 5.4 gm/dL (5.7-8.2); eGFR > 60 See Note
[2025-07-31 08:00] VITALS: BP 141/89; PULSE 108; RESP 14; TEMP 36.4; O2SAT 94
[2025-07-31 10:27] LABS: Vancomycin,Trough 39.6 mcg/mL (5.0-10.0)
--- NOTE | 2025-07-31 10:41 | PD.SURPROG ---
Documentation for date of: 07/31/25 Subjective Subjective Brief History: History presents revealed that the patient has been having some chronic pain in the lower abdomen since last February. Patient denies any history of nausea or vomiting or change in the bowel habits. Patient denies any history of blood in the stools. She has however lost about 20 pounds and has not been feeling well. She is also weak. She denies any other major medical illness. She came to the emergency room with with increasing pain. Narrative: The patient is still not having bowel movements even though she is passing gas and ambulating well Exam Vital Signs Temp Pulse Resp BP Pulse Ox O2 Del Method O2 Flow Rate 97.6 F 108 H 14 141/89 H 94 L Room Air 1 07/31/25 08:00 07/31/25 08:00 07/31/25 08:00 07/31/25 08:00 07/31/25 08:00 07/31/25 08:00 07/30/25 08:00 Vital signs shows tachycardia Routine Abdominal Exam Comments: Abdominal examination is unchanged Results Results: Laboratory Laboratory Narrative: Leukocytes persist probably due to pneumonia Assessment & Plan Assessment Additional comments: Impression: Slow recovery following massive resection Plan Plan: We shall DC the NG tube because drainage is decreasing. We can try clear liquids today if she tolerates. Continue TPN without any reduction in the calories PROCEDURES: Procedures Exploratory laparotomy and right hemicolectomy and ilio transverse colostomy
[2025-07-31] MEDS: THIAMINE INJ 100 MG/ML VIAL 2 ML IVP (11:16)
[2025-07-31 11:58] VITALS: BMI 13.0
[2025-07-31 12:00] VITALS: BP 137/81; PULSE 117; RESP 16; TEMP 36.3; O2SAT 97
--- NOTE | 2025-07-31 12:29 | PD.IMPROG ---
Documentation for date of: 07/31/25 Subjective Subjective Interval history: Patient evaluated NGT has decreased output It will be discontinued as per surgery and possibly clear liquid diet Exam Vital Signs Temp Pulse Resp BP Pulse Ox O2 Del Method O2 Flow Rate 97.6 F 108 H 14 141/89 H 94 L Room Air 1 07/31/25 08:00 07/31/25 08:00 07/31/25 08:00 07/31/25 08:00 07/31/25 08:00 07/31/25 08:00 07/30/25 08:00 Objective Labs 07/31/25 05:32 07/31/25 05:32 Labs: Laboratory Results - last 24 hr 07/31/25 07/31/25 05:32 09:45 WBC 20.9 H RBC 2.62 L Hgb 7.5 L Hct 23.1 L MCV 88 MCH 28.6 MCHC 32.5 RDW Std Deviation 53.8 H Plt Count 526 H D Neut % (Auto) 81 H Lymph % (Auto) 7 L [place] % (Auto) 9 Eos % (Auto) 2 Baso % (Auto) 1 Neut # (Auto) 17.0 H Lymph # (Auto) 1.4 [place] # (Auto) 1.8 H Eos # (Auto) 0.3 Baso # (Auto) 0.1 Immature Gran # (Auto) 0.38 H Absolute Nucleated RBC 0.00 Immature Gran % 2 H Nucleated RBC % 0 Sodium 138 Potassium 3.7 Chloride 105 Carbon Dioxide 23.9 Anion Gap 9 BUN 18 Creatinine 1.0 D Estim Creat Clear Calc 43.1 L eGFR > 60 BUN/Creatinine Ratio 18 Glucose 193 H Calculated Osmolality 282 Calcium 8.1 L Corrected Calcium 9.4 Phosphorus 4.5 Magnesium 2.2 Total Bilirubin 0.5 AST 26 ALT 7 L Alkaline Phosphatase 183 H Total Protein 5.4 L Albumin 2.4 L Globulin 3.0 Albumin/Globulin Ratio 0.8 L Vancomycin Trough 39.6 H* Impressions Impression: Status post exploratory laparotomy for a large ascending colon/cecal invasive adenocarcinoma with ileotransverse anastomosis As under HPI Assessment & Plan A&P Narrative 1. Large ascending colon mass, suspected cancer, attached to sigmoid colon status post right hemicolectomy ileotransverse anastomosis. 2. Significant leukocytosis pericardial effusion noted on CT UTI, appearing comfortable this a.m. with supportive care Postop day 1. 3. Will check pathology and follow patient upon discharge at the cancer treatment center. 4 Thank you very much for allowing me to evaluate this patient. Time Spent With Patient Time: Total time spent is greater than 50% in coordination of care (as documented) at patient's floor/unit and/or counseling patient:
[2025-07-31 16:00] VITALS: BP 115/75; PULSE 84; RESP 18; TEMP 36.7; O2SAT 98
[2025-07-31] MEDS: FAT EMULSIONS 20% IV 500 ML 32 ML IV (17:52)
[2025-07-31] MEDS: AMINO ACID IV (17:53)
[2025-07-31] MEDS: POT CHL ADDITIVE IV (17:53)
[2025-07-31] MEDS: [UNRECOGNIZED DRUG - OTHER] IV (17:53)
--- NOTE | 2025-07-31 19:57 | ESPR_ITS ---
Documentation for date of: 07/31/25 Subjective - Hospitalist Subjective Interval history: Patient seen and examined at bedside this morning. Alert and awake, able to answer question and follow command appropriately. Appears comfortable. Abdominal pain has been improving. Has not have any bowel movements but she was able to pass gas yesterday while ambulating. NG tube drainage has been decreasing. We will discontinue the NG tube and start the patient on clear liquid diet as recommended by general surgery, appreciate recommendations. We will continue to encourage patient to ambulate with physical therapy. Tachycardia has been improving, WBC count has been improving as well. We will continue to monitor for nausea/vomiting and bowel movement. Review of Systems Review of Systems Systems Reviewed: All systems reviewed, normal except as documented Exam Vital Signs Temp Pulse Resp BP Pulse Ox O2 Del Method O2 Flow Rate 98.0 F 84 18 115/75 98 Room Air 1 07/31/25 16:00 07/31/25 16:00 07/31/25 16:00 07/31/25 16:00 07/31/25 16:00 07/31/25 16:00 07/30/25 08:00 Narrative General: A/O x4, no acute distress, ill appearing, sitting comfortably on chair Eyes: PERRL, EOMI. Anicteric, vision grossly intact. ENT: Moist mucous membranes, no redness, no lesions. Neck: Neck supple, non-tender, no cervical lymphadenopathy. Lungs: Clear YADY to auscultation and percussion, No accessory muscle use. Cardio: Normal S1/S2, regular rhythm, no murmurs, no JVD or carotid bruits. Abdomen: Soft, tenderness around incisional site, no palpable masses, hypoactive bowel sound Extremities: Symmetrical, no significant deformities, no peripheral edema , non-tender, peripheral pulses presents. Skin: No rashes, no lesions, warm to touch. LIJ catheter w/o erythema or drainage. NG tube in place with bile colored output Neuro: No focal neurological deficits. motor and sensory intact Psych: Cooperative, appropriate mood and effect. Objective - Hospitalist Labs Diagram: 07/31/25 05:32 07/31/25 05:32 Labs: Laboratory Results - last 24 hr 07/31/25 07/31/25 05:32 09:45 WBC 20.9 H RBC 2.62 L Hgb 7.5 L Hct 23.1 L MCV 88 MCH 28.6 MCHC 32.5 RDW Std Deviation 53.8 H Plt Count 526 H D Neut % (Auto) 81 H Lymph % (Auto) 7 L [place] % (Auto) 9 Eos % (Auto) 2 Baso % (Auto) 1 Neut # (Auto) 17.0 H Lymph # (Auto) 1.4 Anderson # (Auto) 1.8 H Eos # (Auto) 0.3 Baso # (Auto) 0.1 Immature Gran # (Auto) 0.38 H Absolute Nucleated RBC 0.00 Immature Gran % 2 H Nucleated RBC % 0 Sodium 138 Potassium 3.7 Chloride 105 Carbon Dioxide 23.9 Anion Gap 9 BUN 18 Creatinine 1.0 D Estim Creat Clear Calc 43.1 L eGFR > 60 BUN/Creatinine Ratio 18 Glucose 193 H Calculated Osmolality 282 Calcium 8.1 L Corrected Calcium 9.4 Phosphorus 4.5 Magnesium 2.2 Total Bilirubin 0.5 AST 26 ALT 7 L Alkaline Phosphatase 183 H Total Protein 5.4 L Albumin 2.4 L Globulin 3.0 Albumin/Globulin Ratio 0.8 L Vancomycin Trough 39.6 H* Assessment & Plan Plan: 65 yo F w/ PMH prediabetes, anemia presented with worsening of abdominal pain since yesterday, CT Scan shows Cecal Mass. #Invasive adenocarcinoma of ascending colon #S/P ex lap right hemicolectomy and ilio transverse anastomosis?POD 4 #E. coli bacteremia Patient presented with worsening abdominal pain since day before admit. WBCs today 16.[address] Abdomen in ED showed mass appearing to rise from the cecum. CEA this admit elevated at 34.7. Pt underwent colonoscopy this admit which revealed likely malignant and obstructive mass of ascending colon w/ Dr. Mc, and received surgical intervention as per HPI. Please see op note for details. Blood cultures positive for e.coli, Central line placed 07/22/25 for TPN. XR Abdomen 07/24/25 showed diffuse stomach and bowel dilation, as per HPI an NG tube was placed for decompression. Pt was placed on NPO. WBC today 22.7 from 30.5 yesterday. - Gensurg, GI, Oncology following. Dr. Weir (oncology) plans to interpret pathology of mass as available and follow up outpatient. Per Dr. Suggs and Dr. Mc will continue TPN and encourage ambulation to promote a bowel movement + IV abx as below. - Acetaminophen/Zofran for symptomatic relief - IV pip-tazo 4.5gm (07/20-), IV vancomycin (07/27-) - NPO until has a BM - Abd Xr showed Ileus - Encouraging ambulation - NG tube discontinued today, patient started on clear liquid diet, we will advance diet slowly if patient tolerates. #UTI #Secondary to Enterococcus and Pseudomonas Patient reported dysuria prior to arrival in the hospital, urine cultures positive for Enterococcus and Pseudomonas Repeat UA showed evidence of UTI; pt has no genitourinary symptoms currently. Urine in container this morning was clear. - Continue abx as above #Pericardial effusion Per CT ab/pelv in ED, 7mm effusion present. Possibly malignant in setting of large mass in the cecum/ colon. However pt is asymptomatic at this time, denies chest pain, SOB, palpitations. #Normocytic Anemia Acute on chronic, at this time most likely 2/2 cecal mass/possible malignancy. Iron panel this admit showed low Iron 5, TIBC 135, Iron Sat 3, Ferritin however normal at 135. Most likely mixed picture in setting of chronic disease with additional complication of volume loss in setting of malignancy and surgery. Hgb 07/26/25- 9. Pt has no signs/sympoms of active bleed. - Trend CBCs, no obvious bleeding noted #Elevated BP (resolved) On admission BP-160/85; pt has no HTN history and BP has been subsequently normal. - Monitor BP, currently stable Disposition: Pending BM. Diet: Clear liquid diet GI prophylaxis: none DVT prophylaxis: SCDs Code: Full Code Logan Mendiola MD Time Spent with Patient Time: Total time spent is greater than 50% in coordination of care (as documented) at patient's floor/unit and/or counseling patient: Time with patient: Greater than 35 minutes Reason for Continued Stay Reason for continued stay: further monitoring Quality Measures Quality Measures none Advance care planning discussed with:: patient
[2025-07-31 20:00] VITALS: BP 119/77; PULSE 114; RESP 18; TEMP 36.1; O2SAT 94
[2025-08-01] VITALS: BP 112/69; PULSE 94; RESP 16; TEMP 36.2; O2SAT 94
[2025-08-01] MEDS: MORPHINE SULF INJ 4 MG/ML VIAL IVP ×3 (02:44→13:42)
[2025-08-01 04:00] VITALS: BP 117/75; PULSE 107; RESP 18; TEMP 36.4; O2SAT 93
[2025-08-01] MEDS: PIPER/TAZO INJ 4.5 GM in SODIUM CHLORIDE 0.9% (POP) 100 ML IV ×2 (05:23→13:09)
[2025-08-01] MEDS: INSULIN LISPRO (AdmeLOG) 1 UNIT/0.01 ML UNIT SC ×3 (05:30→23:33)
[2025-08-01 05:57] LABS: Basophils # (Auto) 0.2 Thou/mm3 (0.0-0.2); Basophils % (Auto) 1 % (0-2.5); Eosinophils # (Auto) 0.5 Thou/mm3 (0.0-0.5); Eosinophils % (Auto) 2 % (0-10); Hematocrit 21.5 % (36.0-46.0); Immature Granulocytes Auto 0.32 Thou/mm3 (0.00-0.00); Lymphocytes # (Auto) 1.2 Thou/mm3 (1.0-4.8); Lymphocytes % (Auto) 6 % (10-50); Mean Corpuscular HGB Conc 33.0 g/dl (31.0-37.0); Mean Corpuscular Hemoglobin 29.3 pg (25.0-35.0); Mean Corpuscular Volume 89 fL (80-100); Monocytes # (Auto) 1.5 Thou/mm3 (0.0-0.8); Monocytes % (Auto) 7 % (0-12); Neutrophils # (Auto) 17.7 Thou/mm3 (1.8-7.7); Neutrophils % (Auto) 83 % (37-80); Nucleated Red Blood Cell # 0.00 Thou/mm3 (0.00-0.00); Nucleated Red Blood Cell % 0 /100 WBC (0); Platelet Count 553 Thou/mm3 (140-440); RDW Standard Deviation 55.8 fL (36.4-46.3); Red Blood Count 2.42 Miln/mm3 (4.00-5.20); White Blood Count 21.4 Thou/mm3 (3.6-11.0)
[2025-08-01 05:58] LABS: Hemoglobin 7.1 g/dL (12.0-16.0)
[2025-08-01 06:00] VITALS: BMI 29.0
[2025-08-01 06:14] LABS: Alanine Aminotransferase 11 U/L (10-49); Albumin, Serum 2.7 gm/dL (3.4-4.8); Albumin/Globulin Ratio 0.8 (1.2-2.2); Alkaline Phosphatase 209 U/L (46-116); Anion Gap 9 (7-16); Aspartate Amino Transferase 25 U/L (0-34); BUN/Creatinine Ratio 18 Ratio (12-20); Bilirubin,Total 0.4 mg/dL (0.3-1.2); Blood Urea Nitrogen 21 mg/dL (9-23); Calcium 8.5 mg/dL (8.3-10.6); Calcium (Corrected) 9.5 mg/dL (8.5-10.1); Carbon Dioxide 23.7 mMol/L (20.0-31.0); Chloride 107 mMol/L (98-107); Creatinine (Component) 1.2 mg/dL (0.6-1.3); Estimated Creatinine Clearance 35.9 mL/min (>60); Globulin 3.2 gm/dL (2.3-3.5); Glucose 189 mg/dL (74-106); Magnesium 2.4 mg/dL (1.6-2.6); Osmolality,Calculated 287 (275-295); Phosphorous 4.7 mg/dL (2.4-5.1); Potassium 3.6 mMol/L (3.4-5.1); Sodium 140 mMol/L (136-145); Total Protein 5.9 gm/dL (5.7-8.2); Vancomycin,Random 25.6 mcg/mL; eGFR 50 See Note
[2025-08-01 08:00] VITALS: BP 134/75; PULSE 107; PULSE 110; RESP 20; TEMP 36.5; O2SAT 94
[2025-08-01] MEDS: THIAMINE INJ 100 MG/ML VIAL 2 ML IVP (08:41)
[2025-08-01 12:00] VITALS: BP 126/82; PULSE 109; RESP 18; TEMP 36.7; O2SAT 95
--- NOTE | 2025-08-01 13:39 | ESPR_ITS ---
Documentation for date of: 08/01/25 Subjective Subjective Interval history: No acute overnight events. Patient seen examined at bedside. Patient endorses abdominal pain and tenderness on incision site which is healing well. Endorses some thin green sputum similar to NG tube secretions. is passing gas and flatulence. Had a bowel movement today. Labs and vitals reviewed. SBP 110s, hemoglobin decreased from 7.5 now 7.1. Platelets uptrending 553. Creatinine uptrending from 1.0 now 1.2, on admission 0.3-0.5. As patient is tolerating clear liquid diet, advance to full liquid diet, but continue TPN. Patient ambulating well to restroom. Discontinue antibiotics today as patient has completed full course with adequate coverage since admission. Deescalate morphine to norco 5. Exam Vital Signs Temp Pulse Resp BP Pulse Ox O2 Del Method O2 Flow Rate 97.7 F 110 H 20 134/75 H 94 L Room Air 1 08/01/25 08:00 08/01/25 08:00 08/01/25 08:00 08/01/25 08:00 08/01/25 08:00 08/01/25 08:00 07/30/25 08:00 Narrative Exam GENERAL: AOx3, no acute distress, sitting in chair comfortably HEENT: mucous membranes moist, bilateral sclera anicteric CARDIOVASCULAR: regular rate and rhythm, S1/S2 present, no murmurs appreciated, LIJ catheter intact in place PULMONARY: clear to auscultation bilaterally, no rales/rhonchi/wheezes ABDOMINAL: soft, non-tender, non-distended, no rebound/guarding, bowel sounds present, R transverse incision clean without drainage EXTREMITIES: no peripheral edema SKIN: warm and dry, intact, no rashes NEURO: CN II-XII grossly intact, no focal deficits, alert, following commands Objective Labs 08/01/25 05:13 08/01/25 05:13 Labs: Laboratory Results - last 24 hr 08/01/25 05:13 WBC 21.4 H RBC 2.42 L Hgb 7.1 L Hct 21.5 L* MCV 89 MCH 29.3 MCHC 33.0 RDW Std Deviation 55.8 H Plt Count 553 H Neut % (Auto) 83 H Lymph % (Auto) 6 L [place] % (Auto) 7 Eos % (Auto) 2 Baso % (Auto) 1 Neut # (Auto) 17.7 H Lymph # (Auto) 1.2 [place] # (Auto) 1.5 H Eos # (Auto) 0.5 Baso # (Auto) 0.2 Immature Gran # (Auto) 0.32 H Absolute Nucleated RBC 0.00 Immature Gran % 2 H Nucleated RBC % 0 Sodium 140 Potassium 3.6 Chloride 107 Carbon Dioxide 23.7 Anion Gap 9 BUN 21 Creatinine 1.2 Estim Creat Clear Calc 35.9 L eGFR 50 L BUN/Creatinine Ratio 18 Glucose 189 H Calculated Osmolality 287 Calcium 8.5 Corrected Calcium 9.5 Phosphorus 4.7 Magnesium 2.4 Total Bilirubin 0.4 AST 25 ALT 11 Alkaline Phosphatase 209 H D Total Protein 5.9 Albumin 2.7 L Globulin 3.2 Albumin/Globulin Ratio 0.8 L Random Vancomycin 25.6 Quality Measures Quality Measures none Advance care planning discussed with:: patient Assessment & Plan Assessment Current Active Medications: Generic Name Dose Route Start Last Admin Trade Name Freq PRN Reason Stop Dose Admin Acetaminophen 650 mg 07/18/25 22:29 07/19/25 15:54 Acetaminophen 325 Mg Tablet PO 08/17/25 22:28 650 mg Q6H PRN Administration Fever >100.4 Dextrose 25 ml 07/27/25 11:54 Dextrose 50%-Water Inj 50 Ml Syringe IV 08/26/25 11:53 Q15MIN PRN BG 50-70 responsive npo pt Dextrose 50 ml 07/27/25 11:54 Dextrose 50%-Water Inj 50 Ml Syringe IV 08/26/25 11:53 Q15MIN PRN BG <50 OR BG <70 & pt unresponsive Glucagon 1 mg 07/27/25 11:54 Glucagon Inj 1 Mg Vial IM Q15MIN PRN BG <70, and no IV access Fat Emulsion Intravenous 500 mls @ 32 mls/hr 07/27/25 18:00 07/31/25 17:52 Intralipid 20% Iv IV 08/26/25 17:59 32 mls/hr [id number] SHAWNA Administration Piperacillin Sod/Tazobactam 100 mls @ 25 mls/hr 07/27/25 22:00 08/01/25 13:09 Sod 4.5 gm/ Sodium Chloride IV 08/03/25 21:59 25 mls/hr Q8HR SHAWNA Administration Protocol Potassium Chloride 40 meq/ 2,020 mls @ 60.149 mls/hr 07/31/25 18:00 07/31/25 17:53 Amino Acids/Electrolytes IV 08/02/25 03:34 60.149 mls/hr X1 ONE Administration Potassium Acetate 60 meq/ 2,040 mls @ 60 mls/hr 08/01/25 18:00 Multivitamins/Minerals 10 ml/ IV 08/02/25 17:59 Amino Acids .Q24H SHAWNA Insulin Human Lispro 0 unit 07/27/25 12:00 08/01/25 13:09 Insulin Lispro (Admelog) 1 Unit/0.01 Ml Unit SC 08/26/25 11:59 2 unit Q6HR SHAWNA Administration Protocol Morphine Sulfate 4 mg 07/26/25 17:23 08/01/25 06:43 Morphine Sulf Inj 4 Mg/Ml Vial IVP 08/03/25 17:22 4 mg Q4HR PRN Administration PAIN SCALE 7-10 (Severe Ondansetron HCl 4 mg 07/18/25 22:29 07/24/25 10:29 Ondansetron Inj 2 Mg/Ml Inj 2 Ml IVP 08/17/25 22:28 4 mg Q6H PRN Administration NAUSEA OR VOMITING Protocol Pharmacy Consult 1 each 07/25/25 12:30 Vancomycin Pharmacy To Dose 1 Each Each IV 08/24/25 12:29 QDAY PRN CONSULT Thiamine HCl 100 mg 07/23/25 09:00 08/01/25 08:41 Thiamine Inj 100 Mg/Ml Vial 2 Ml IVP 08/22/25 08:59 100 mg QDAY SHAWNA Administration Plan Carla Washington 65F pmhx significant for prediabetes, anemia presented with worsening of abdominal pain, admitted for invasice adenocarcinoma of ascending colon s/p ex lap R hemicolectomy and ilio transverse anastomosis and E. coli bacteremia, found to have enterococcus and psudomonas UTI. #Invasive adenocarcinoma of ascending colon #S/P ex lap right hemicolectomy and ilio transverse anastomosis?POD 4 #E. coli bacteremia #Leukocytosis Patient presented with worsening abdominal pain since day before admit. WBCs today 16.[address] Abdomen in ED showed mass appearing to rise from the cecum. CEA this admit elevated at 34.7. Pt underwent colonoscopy this admit which revealed likely malignant and obstructive mass of ascending colon w/ Dr. Mc, and received surgical intervention as per HPI. Please see op note for details. Blood cultures positive for e.coli, Central line placed 07/22/25 for TPN. XR Abdomen 07/24/25 showed diffuse stomach and bowel dilation, as per HPI an NG tube was placed for decompression. Pt was placed on NPO. WBC still elevated despite abx, possibly reactive 2/2 TPN. Abd Xr showed Ileus Path report shows invasive adenocarcinoma [id number], surgical margins negative, all 37 lymph nodes benign IV pip-tazo 4.5gm (07/20-08/01), IV vancomycin (07/27-08/01) Plan: - Gensurg, GI, Oncology following. Dr. Weir (oncology) plans to interpret pathology of mass as available and follow up outpatient. Per Dr. Suggs and Dr. Mc will continue TPN and liquid diet and encourage ambulation - Acetaminophen/Donald 5/Zofran for symptomatic relief - NPO until has a BM - Encouraging ambulation - Advance to full liquid diet #STEPH #UTI, enterococcus and Pseudomonas Patient reported dysuria prior to arrival in the hospital, urine cultures positive for Enterococcus and Pseudomonas. Repeat UA showed evidence of UTI; pt has no genitourinary symptoms currently. Urine in container this morning was clear. Patient completed course of abx On admission, Cr 0.3-0.5, on 07/31, uptrended to 1.0, now 1.2. Ddx: abx s/e, prerenal Plan: - CTM for urinary symptoms - CTM renal panel - Consider Ulytes if Cr does not improve #Pericardial effusion Per CT ab/pelv in ED, 7mm effusion present. Possibly malignant in setting of large mass in the cecum/ colon. However pt is asymptomatic at this time, denies chest pain, SOB, palpitations. #Normocytic Anemia Acute on chronic, at this time most likely 2/2 cecal mass/possible malignancy. Iron panel this admit showed low Iron 5, TIBC 135, Iron Sat 3, Ferritin however normal at 135. Most likely mixed picture in setting of chronic disease with additional complication of volume loss in setting of malignancy and surgery. Hgb 07/26/25- 9. Pt has no signs/sympoms of active bleed. - Trend CBCs, no obvious bleeding noted #Elevated BP (resolved) On admission BP-160/85; pt has no HTN history and BP has been subsequently normal. - Monitor BP, currently stable Hospital management: Lines: PIV, LIJ central liine Diet: Full liquid Bowel: none GI prophylaxis: none DVT prophylaxis: SCDs Disposition: med tele, advancing diet CODE STATUS: FULL CODE Plan of care discussed with attending Dr. Mendiola. iKm Hanks DO PGY-1 Internal Medicine Attending Provider Attestation/Addendum I have seen and examined the patient. I was physically present for the [place] portions of the services provided including history, physical exam, diagnosis, treatment plans and orders. I agree with assessment and plan of care as documented by residents. Patient seen and examined at bedside this morning. No acute overnight events. States that her abdominal pain continues to improve still has some pain and tenderness around the incision site. Has been able to pass gas, had a bowel movement this morning. Vital signs are stable this morning. Hemoglobin noted to have decreased to 7.1 today from 7.5 yesterday, possibly secondary to frequent blood draws. We will monitor closely and transfuse if it drops below 7. We will obtain follow-up hemoglobin level in the afternoon. Completed her antibiotics course of IV vancomycin and Zosyn. BBC remain high but stable. Creatinine up trended to 1.2, continues to be on TPN, patient has been started on clear liquid diet, we will encourage her to help increase oral intake. We will slowly advance her diet, full liquid diet for dinner today. We will also de-escalate her analgesic regimen. Even though this this note was carefully revised there may still be minor errors in applicator sprayer due to voice recognition software. Logan Mendiola MD
[2025-08-01 16:00] VITALS: BP 124/73; PULSE 100; RESP 20; TEMP 36.7; O2SAT 96
[2025-08-01 16:19] LABS: Hematocrit 23.0 % (36.0-46.0)
[2025-08-01 16:38] LABS: Hemoglobin 7.3 g/dL (12.0-16.0)
[2025-08-01] MEDS: MULTIVITAMIN IV (17:41)
[2025-08-01] MEDS: [UNRECOGNIZED DRUG - OTHER] IV (17:41)
[2025-08-01] MEDS: POTASSIUM ACET IV (17:41)
[2025-08-01] MEDS: AMINO ACID IV (17:41)
--- NOTE | 2025-08-01 18:21 | PD.IMPROG ---
Documentation for date of: 08/01/25 Subjective Subjective Interval history: Passing gas Had a bowel movement today Advance diet as tolerated Exam Vital Signs Temp Pulse Resp BP Pulse Ox O2 Del Method O2 Flow Rate 98.0 F 100 20 124/73 96 Room Air 1 08/01/25 16:00 08/01/25 16:00 08/01/25 16:00 08/01/25 16:00 08/01/25 16:00 08/01/25 16:00 07/30/25 08:00 Objective Labs 08/01/25 15:53 08/01/25 05:13 Labs: Laboratory Results - last 24 hr 08/01/25 08/01/25 05:13 15:53 WBC 21.4 H RBC 2.42 L Hgb 7.1 L 7.3 L Hct 21.5 L* 23.0 L MCV 89 MCH 29.3 MCHC 33.0 RDW Std Deviation 55.8 H Plt Count 553 H Neut % (Auto) 83 H Lymph % (Auto) 6 L [place] % (Auto) 7 Eos % (Auto) 2 Baso % (Auto) 1 Neut # (Auto) 17.7 H Lymph # (Auto) 1.2 [place] # (Auto) 1.5 H Eos # (Auto) 0.5 Baso # (Auto) 0.2 Immature Gran # (Auto) 0.32 H Absolute Nucleated RBC 0.00 Immature Gran % 2 H Nucleated RBC % 0 Sodium 140 Potassium 3.6 Chloride 107 Carbon Dioxide 23.7 Anion Gap 9 BUN 21 Creatinine 1.2 Estim Creat Clear Calc 35.9 L eGFR 50 L BUN/Creatinine Ratio 18 Glucose 189 H Calculated Osmolality 287 Calcium 8.5 Corrected Calcium 9.5 Phosphorus 4.7 Magnesium 2.4 Total Bilirubin 0.4 AST 25 ALT 11 Alkaline Phosphatase 209 H D Total Protein 5.9 Albumin 2.7 L Globulin 3.2 Albumin/Globulin Ratio 0.8 L Random Vancomycin 25.6 Impressions Impression: Status post right hemicolectomy with ileotransverse anastomosis Patient clinically improving Advance diet as tolerated Assessment & Plan A&P Narrative 1. Large ascending colon mass, suspected cancer, attached to sigmoid colon status post right hemicolectomy ileotransverse anastomosis. 2. Significant leukocytosis pericardial effusion noted on CT UTI, appearing comfortable this a.m. with supportive care Postop day 1. 3. Will check pathology and follow patient upon discharge at the cancer treatment center. 4 Thank you very much for allowing me to evaluate this patient. Time Spent With Patient Time: Total time spent is greater than 50% in coordination of care (as documented) at patient's floor/unit and/or counseling patient:
[2025-08-01 20:00] VITALS: BP 119/67; PULSE 98; RESP 20; TEMP 36.1; O2SAT 98
[2025-08-01] MEDS: HYDROcodone/APAP 5/325 TABLET 1 TAB PO (22:15)
[2025-08-02] VITALS (14 sets, daily range): BP systolic 110–160; BP diastolic 73–95; PULSE 90–109; RESP 16–19; TEMP 36.1–37; O2SAT 96–99; BMI 29.0
[2025-08-02 06:17] LABS: Basophils # (Auto) 0.1 Thou/mm3 (0.0-0.2); Basophils % (Auto) 1 % (0-2.5); Eosinophils # (Auto) 0.4 Thou/mm3 (0.0-0.5); Eosinophils % (Auto) 3 % (0-10); Hematocrit 20.9 % (36.0-46.0); Immature Granulocytes Auto 0.17 Thou/mm3 (0.00-0.00); Lymphocytes # (Auto) 1.3 Thou/mm3 (1.0-4.8); Lymphocytes % (Auto) 9 % (10-50); Mean Corpuscular HGB Conc 30.6 g/dl (31.0-37.0); Mean Corpuscular Hemoglobin 27.8 pg (25.0-35.0); Mean Corpuscular Volume 91 fL (80-100); Monocytes # (Auto) 1.1 Thou/mm3 (0.0-0.8); Monocytes % (Auto) 7 % (0-12); Neutrophils # (Auto) 12.3 Thou/mm3 (1.8-7.7); Neutrophils % (Auto) 79 % (37-80); Nucleated Red Blood Cell # 0.00 Thou/mm3 (0.00-0.00); Nucleated Red Blood Cell % 0 /100 WBC (0); Platelet Count 496 Thou/mm3 (140-440); RDW Standard Deviation 55.5 fL (36.4-46.3); Red Blood Count 2.30 Miln/mm3 (4.00-5.20); White Blood Count 15.5 Thou/mm3 (3.6-11.0)
[2025-08-02 06:34] LABS: Hemoglobin 6.4 g/dL (12.0-16.0)
[2025-08-02] MEDS: HYDROcodone/APAP 5/325 TABLET 1 TAB PO ×3 (06:39→18:43)
[2025-08-02 07:01] LABS: Alanine Aminotransferase 9 U/L (10-49); Albumin, Serum 2.5 gm/dL (3.4-4.8); Albumin/Globulin Ratio 0.8 (1.2-2.2); Alkaline Phosphatase 179 U/L (46-116); Anion Gap 10 (7-16); Aspartate Amino Transferase 16 U/L (0-34); BUN/Creatinine Ratio 18 Ratio (12-20); Bilirubin,Total 0.4 mg/dL (0.3-1.2); Blood Urea Nitrogen 20 mg/dL (9-23); Calcium 8.1 mg/dL (8.3-10.6); Calcium (Corrected) 9.3 mg/dL (8.5-10.1); Carbon Dioxide 23.2 mMol/L (20.0-31.0); Chloride 108 mMol/L (98-107); Creatinine (Component) 1.1 mg/dL (0.6-1.3); Estimated Creatinine Clearance 38.3 mL/min (>60); Globulin 3.1 gm/dL (2.3-3.5); Glucose 134 mg/dL (74-106); Magnesium 1.9 mg/dL (1.6-2.6); Osmolality,Calculated 285 (275-295); Phosphorous 3.6 mg/dL (2.4-5.1); Potassium 3.4 mMol/L (3.4-5.1); Sodium 141 mMol/L (136-145); Total Protein 5.6 gm/dL (5.7-8.2); Vancomycin,Random 14.4 mcg/mL; eGFR 56 See Note
[2025-08-02] MEDS: THIAMINE INJ 100 MG/ML VIAL 2 ML IVP (08:01)
--- NOTE | 2025-08-02 08:56 | CHAP ---
Patient expressed gratitude for prayer and visit.
[2025-08-02] MEDS: POTASSIUM CHL 10 mEq IVPB 10 MEQ/100 ML BAG 100 MEQ IV ×2 (10:10→11:29)
--- NOTE | 2025-08-02 13:17 | PD.SURPROG ---
Documentation for date of: 08/02/25 Subjective Subjective Brief History: History presents revealed that the patient has been having some chronic pain in the lower abdomen since last February. Patient denies any history of nausea or vomiting or change in the bowel habits. Patient denies any history of blood in the stools. She has however lost about 20 pounds and has not been feeling well. She is also weak. She denies any other major medical illness. She came to the emergency room with with increasing pain. Narrative: Patient is having bowel movements and is tolerating diet Exam Vital Signs Temp Pulse Resp BP Pulse Ox O2 Del Method O2 Flow Rate 98.2 F 96 18 131/83 H 99 Room Air 1 08/02/25 11:40 08/02/25 12:00 08/02/25 11:40 08/02/25 11:40 08/02/25 11:40 08/02/25 08:00 08/02/25 11:05 Her vital signs are better Routine Abdominal Exam Comments: Abdominal examination is unremarkable Results Results: Laboratory Laboratory Narrative: Laboratory test showed decreasing WBC but her hemoglobin is low also Assessment & Plan Assessment Additional comments: Impression: Slow recovery following right hemicolectomy Persistent anemia and hypoproteinemia Plan Plan: Patient could be discharged to a intermediate for rehabilitation PROCEDURES: Procedures Exploratory laparotomy and right hemicolectomy and ilio transverse colostomy
--- NOTE | 2025-08-02 13:48 | ESPR_ITS ---
Documentation for date of: 08/02/25 Subjective Subjective Interval history: Patient was seen and evaluated at bedside this morning. No acute overnight events. This morning patient is hemoglobin dropped to 6.4, but she denies any bleeding to the stools or vomiting with blood. Patient does not have any active signs of bleeding. 1 PRBC will be transfused. Patient had a bowel movement today which she stated was watery, but no blood. Otherwise is tolerating p.o. diet well. Will discontinue TPN and will keep central line in as per surgery until she is discharged. Will advance diet and if patient is able to tolerate we will likely discharge in the next 2 or 3 days to a snf facility. Exam Vital Signs Temp Pulse Resp BP Pulse Ox O2 Del Method O2 Flow Rate 98.2 F 96 18 131/83 H 99 Room Air 1 08/02/25 11:40 08/02/25 12:00 08/02/25 11:40 08/02/25 11:40 08/02/25 11:40 08/02/25 08:00 08/02/25 11:05 Narrative Exam General: A/O x3, no acute distress, ill appearing Eyes: PERRL, EOMI. Anicteric, vision grossly intact. Ears: No ear pain, no ear discharge, Hearing grossly intact. Nose: No nasal discharge. Mouth/Throat: Moist mucous membranes, no redness, no lesions. Neck: Neck supple, non-tender, no cervical lymphadenopathy. Lungs: Clear YADY to auscultation and percussion, No accessory muscle use. Cardio: Normal S1/S2, regular rhythm, no murmurs, no JVD or carotid bruits. Abdomen: Soft, incisional site mildly tender, no palpable masses, peristalsis hypoactive, no guarding or rebound. Extremities: Symmetrical, no significant deformities, no peripheral edema , non-tender, peripheral pulses presents. Skin: No rashes, no lesions, warm to touch. LIJ catheter w/o erythema or drainage. Neuro: No focal neurological deficits. motor and sensory intact Psych: Cooperative, appropriate mood and effect. Objective Labs 08/02/25 05:08 08/02/25 05:08 Labs: Laboratory Results - last 24 hr 08/01/25 08/02/25 08/02/25 15:53 05:08 08:27 WBC 15.5 H D RBC 2.30 L Hgb 7.3 L 6.4 L* Hct 23.0 L 20.9 L* MCV 91 MCH 27.8 MCHC 30.6 L RDW Std Deviation 55.5 H Plt Count 496 H D Neut % (Auto) 79 Lymph % (Auto) 9 L [place] % (Auto) 7 Eos % (Auto) 3 Baso % (Auto) 1 Neut # (Auto) 12.3 H Lymph # (Auto) 1.3 [place] # (Auto) 1.1 H Eos # (Auto) 0.4 Baso # (Auto) 0.1 Immature Gran # (Auto) 0.17 H Absolute Nucleated RBC 0.00 Immature Gran % 1 H Nucleated RBC % 0 Sodium 141 Potassium 3.4 Chloride 108 H Carbon Dioxide 23.2 Anion Gap 10 BUN 20 Creatinine 1.1 Estim Creat Clear Calc 38.3 L eGFR 56 L BUN/Creatinine Ratio 18 Glucose 134 H D Calculated Osmolality 285 Calcium 8.1 L Corrected Calcium 9.3 Phosphorus 3.6 Magnesium 1.9 Total Bilirubin 0.4 AST 16 ALT 9 L Alkaline Phosphatase 179 H D Total Protein 5.6 L Albumin 2.5 L Globulin 3.1 Albumin/Globulin Ratio 0.8 L Random Vancomycin 14.4 Blood Type O Positive Antibody Screen NEGATIVE Crossmatch See Detail Blood Bank Wristband ID Yes Quality Measures Quality Measures none Advance care planning discussed with:: patient Assessment & Plan Assessment Current Active Medications: Generic Name Dose Route Start Last Admin Trade Name Freq PRN Reason Stop Dose Admin Acetaminophen 650 mg 07/18/25 22:29 07/19/25 15:54 Acetaminophen 325 Mg Tablet PO 08/17/25 22:28 650 mg Q6H PRN Administration Fever >100.4 Hydrocodone Bitart/Acetaminophen 1 tab 08/01/25 14:26 08/02/25 12:47 Hydrocodone/Apap 5/325 Tablet PO 08/06/25 14:25 1 tab Q6HR PRN Administration PAIN 7-10 Dextrose 25 ml 07/27/25 11:54 Dextrose 50%-Water Inj 50 Ml Syringe IV 08/26/25 11:53 Q15MIN PRN BG 50-70 responsive npo pt Dextrose 50 ml 07/27/25 11:54 Dextrose 50%-Water Inj 50 Ml Syringe IV 08/26/25 11:53 Q15MIN PRN BG <50 OR BG <70 & pt unresponsive Glucagon 1 mg 07/27/25 11:54 Glucagon Inj 1 Mg Vial IM Q15MIN PRN BG <70, and no IV access Fat Emulsion Intravenous 500 mls @ 32 mls/hr 07/27/25 18:00 07/31/25 17:52 Intralipid 20% Iv IV 08/26/25 17:59 32 mls/hr [email or web address] SHAWNA Administration Potassium Acetate 60 meq/ 2,040 mls @ 60 mls/hr 08/01/25 18:00 08/01/25 17:41 Multivitamins/Minerals 10 ml/ IV 08/02/25 17:59 60 mls/hr Amino Acids .Q24H SHAWNA Administration Insulin Human Lispro 0 unit 07/27/25 12:00 08/02/25 12:03 Insulin Lispro (Admelog) 1 Unit/0.01 Ml Unit SC 08/26/25 11:59 Not Given Q6HR SHAWNA Protocol Ondansetron HCl 4 mg 07/18/25 22:29 07/24/25 10:29 Ondansetron Inj 2 Mg/Ml Inj 2 Ml IVP 08/17/25 22:28 4 mg Q6H PRN Administration NAUSEA OR VOMITING Protocol Thiamine HCl 100 mg 07/23/25 09:00 08/02/25 08:01 Thiamine Inj 100 Mg/Ml Vial 2 Ml IVP 08/22/25 08:59 100 mg QDAY SHAWNA Administration Plan Carla Washington 65F pmhx significant for prediabetes, anemia presented with worsening of abdominal pain, admitted for invasice adenocarcinoma of ascending colon s/p ex lap R hemicolectomy and ilio transverse anastomosis and E. coli bacteremia, found to have enterococcus and psudomonas UTI. #Invasive adenocarcinoma of ascending colon #S/P ex lap right hemicolectomy and ilio transverse anastomosis?POD 4 #E. coli bacteremia #Leukocytosis Patient presented with worsening abdominal pain since day before admit. WBCs today 16.[address] Abdomen in ED showed mass appearing to rise from the cecum. CEA this admit elevated at 34.7. Pt underwent colonoscopy this admit which revealed likely malignant and obstructive mass of ascending colon w/ Dr. Mc, and received surgical intervention as per HPI. Please see op note for details. Blood cultures positive for e.coli, Central line placed 07/22/25 for TPN. XR Abdomen 07/24/25 showed diffuse stomach and bowel dilation, as per HPI an NG tube was placed for decompression. Pt was placed on NPO. WBC still elevated despite abx, possibly reactive 2/2 TPN. Abd Xr showed Ileus Path report shows invasive adenocarcinoma pT3N0, surgical margins negative, all 37 lymph nodes benign IV pip-tazo 4.5gm (07/20-08/01), IV vancomycin (07/27-08/01) Plan: - Gensurg, GI, Oncology following. Dr. Weir (oncology) plans to interpret pathology of mass as available and follow up outpatient. - Acetaminophen/[place] 5/Zofran for symptomatic relief - Transition to regular diet - Will discontinue TPN and keep central line until ready to DC - Encouraging ambulation #STEPH #UTI, enterococcus and Pseudomonas Patient reported dysuria prior to arrival in the hospital, urine cultures positive for Enterococcus and Pseudomonas. Repeat UA showed evidence of UTI; pt has no genitourinary symptoms currently. Urine in container this morning was clear. Patient completed course of abx On admission, Cr 0.3-0.5, on 07/31, uptrended to 1.0, now 1.1. Ddx: abx s/e, prerenal Plan: - CTM for urinary symptoms - CTM renal panel - Consider Ulytes if Cr does not improve #Pericardial effusion Per CT ab/pelv in ED, 7mm effusion present. Possibly malignant in setting of large mass in the cecum/ colon. However pt is asymptomatic at this time, denies chest pain, SOB, palpitations. #Normocytic Anemia Acute on chronic, at this time most likely 2/2 cecal mass/possible malignancy. Iron panel this admit showed low Iron 5, TIBC 135, Iron Sat 3, Ferritin however normal at 135. Most likely mixed picture in setting of chronic disease with additional complication of volume loss in setting of malignancy and surgery. Hgb 07/26/25- 9. Pt has no signs/sympoms of active bleed. Hgb dropped to 6.4 today - F/U post H/H - 2 PRBC transfused #Elevated BP (resolved) On admission BP-160/85; pt has no HTN history and BP has been subsequently normal. - Monitor BP, currently stable Disposition: Pending better PO intake and 2 PRBC transfused Diet: Regular GI prophylaxis: none DVT prophylaxis: none Code: Full Case disclosed with Attending Dr. Maury Ugalde PGY2 Disclaimer: Even though this this note was dictated by speech recognition and even though it was carefully revised there may still be minor errors in commodity director due to voice recognition software. Attending Provider Attestation/Addendum I have seen and examined the patient. I was physically present for the [place] portions of the services provided including history, physical exam, diagnosis, treatment plans and orders. I agree with assessment and plan of care as documented by residents. Patient seen and examined at bedside. Appears comfortable and denies any new complaints. Continues to endorse abdominal pain around her incisional site, controlled with analgesics. WBC count has been downtrending. Vital signs are stable. Has been having bowel movement and passing gas. She has been tolerating her diet as well. We will advance her diet and hold TPN. Hemoglobin noted to be 6.4 this morning, possibly secondary to frequent blood draws, obvious bleeding source detected. We will transfuse PRBC and monitor her hemoglobin closely. Discussed with general surgery, agrees with advancing diet, holding TPN, recommended to continue central line for now, appreciate recommendations. We will continue to encourage patient to ambulate. Even though this this note was carefully revised there may still be minor errors in commodity director due to voice recognition software. Logan Mendiola MD
--- NOTE | 2025-08-02 15:55 | ESPR_ITS ---
Documentation for date of: 08/02/25 Subjective Subjective Interval history: Patient having bowel movements tolerating diet Exam Vital Signs Temp Pulse Resp BP Pulse Ox O2 Del Method O2 Flow Rate 98.6 F 94 18 136/86 H 99 Room Air 1 08/02/25 14:28 08/02/25 14:28 08/02/25 14:28 08/02/25 14:28 08/02/25 14:28 08/02/25 08:00 08/02/25 11:05 Objective Labs 08/02/25 05:08 08/02/25 05:08 Labs: Laboratory Results - last 24 hr 08/01/25 08/02/25 08/02/25 15:53 05:08 08:27 WBC 15.5 H D RBC 2.30 L Hgb 7.3 L 6.4 L* Hct 23.0 L 20.9 L* MCV 91 MCH 27.8 MCHC 30.6 L RDW Std Deviation 55.5 H Plt Count 496 H D Neut % (Auto) 79 Lymph % (Auto) 9 L [place] % (Auto) 7 Eos % (Auto) 3 Baso % (Auto) 1 Neut # (Auto) 12.3 H Lymph # (Auto) 1.3 [place] # (Auto) 1.1 H Eos # (Auto) 0.4 Baso # (Auto) 0.1 Immature Gran # (Auto) 0.17 H Absolute Nucleated RBC 0.00 Immature Gran % 1 H Nucleated RBC % 0 Sodium 141 Potassium 3.4 Chloride 108 H Carbon Dioxide 23.2 Anion Gap 10 BUN 20 Creatinine 1.1 Estim Creat Clear Calc 38.3 L eGFR 56 L BUN/Creatinine Ratio 18 Glucose 134 H D Calculated Osmolality 285 Calcium 8.1 L Corrected Calcium 9.3 Phosphorus 3.6 Magnesium 1.9 Total Bilirubin 0.4 AST 16 ALT 9 L Alkaline Phosphatase 179 H D Total Protein 5.6 L Albumin 2.5 L Globulin 3.1 Albumin/Globulin Ratio 0.8 L Random Vancomycin 14.4 Blood Type O Positive Antibody Screen NEGATIVE Crossmatch See Detail Blood Bank Wristband ID Yes Impressions Impression: doing well postoperatively recovering well Advance diet as tolerated Assessment & Plan A&P Narrative 1. Large ascending colon mass, suspected cancer, attached to sigmoid colon status post right hemicolectomy ileotransverse anastomosis. 2. Significant leukocytosis pericardial effusion noted on CT UTI, appearing comfortable this a.m. with supportive care Postop day 1. 3. Will check pathology and follow patient upon discharge at the cancer treatment center. 4 Thank you very much for allowing me to evaluate this patient. Time Spent With Patient Time: Total time spent is greater than 50% in coordination of care (as documented) at patient's floor/unit and/or counseling patient:
--- NOTE | 2025-08-02 15:56 | PC.SS ---
Follow up note: SS and motor vehicle parts interpreter spoke to patient regarding SNF that was recommended. Patient is agreeable to SNF. [facility] preference is [facility]. Possible d/c Saturday
[2025-08-02] MEDS: MAGNESIUM SULF IV (17:47)
[2025-08-02] MEDS: POTASSIUM PHOS IV (17:47)
[2025-08-02] MEDS: POTASSIUM ACET IV (17:47)
[2025-08-02] MEDS: [UNRECOGNIZED DRUG - OTHER] IV (17:47)
[2025-08-02 20:22] LABS: Hematocrit 31.6 % (36.0-46.0); Hemoglobin 10.5 g/dL (12.0-16.0)
[2025-08-02] MEDS: MORPHINE SULF INJ 4 MG/ML VIAL 2 MG IVP (21:09)
[2025-08-03] VITALS (7 sets, daily range): BP systolic 141–170; BP diastolic 81–92; PULSE 86–98; RESP 17–20; TEMP 36.1–36.5; O2SAT 93–99; BMI 29.0; BMI 13.0
[2025-08-03] MEDS: HYDROcodone/APAP 5/325 TABLET 1 TAB PO ×3 (01:08→16:56)
[2025-08-03] MEDS: INSULIN LISPRO (AdmeLOG) 1 UNIT/0.01 ML UNIT SC (05:30)
[2025-08-03 05:42] LABS: Basophils # (Auto) 0.2 Thou/mm3 (0.0-0.2); Basophils % (Auto) 1 % (0-2.5); Eosinophils # (Auto) 0.4 Thou/mm3 (0.0-0.5); Eosinophils % (Auto) 2 % (0-10); Hematocrit 29.9 % (36.0-46.0); Hemoglobin 10.1 g/dL (12.0-16.0); Immature Granulocytes Auto 0.16 Thou/mm3 (0.00-0.00); Lymphocytes # (Auto) 1.1 Thou/mm3 (1.0-4.8); Lymphocytes % (Auto) 7 % (10-50); Mean Corpuscular HGB Conc 33.8 g/dl (31.0-37.0); Mean Corpuscular Hemoglobin 28.9 pg (25.0-35.0); Mean Corpuscular Volume 86 fL (80-100); Monocytes # (Auto) 1.0 Thou/mm3 (0.0-0.8); Monocytes % (Auto) 6 % (0-12); Neutrophils # (Auto) 13.4 Thou/mm3 (1.8-7.7); Neutrophils % (Auto) 83 % (37-80); Nucleated Red Blood Cell # 0.00 Thou/mm3 (0.00-0.00); Nucleated Red Blood Cell % 0 /100 WBC (0); Platelet Count 492 Thou/mm3 (140-440); RDW Standard Deviation 48.9 fL (36.4-46.3); Red Blood Count 3.49 Miln/mm3 (4.00-5.20); White Blood Count 16.2 Thou/mm3 (3.6-11.0)
[2025-08-03 06:36] LABS: Alanine Aminotransferase 9 U/L (10-49); Albumin, Serum 2.7 gm/dL (3.4-4.8); Albumin/Globulin Ratio 0.8 (1.2-2.2); Alkaline Phosphatase 190 U/L (46-116); Anion Gap 8 (7-16); Aspartate Amino Transferase 16 U/L (0-34); BUN/Creatinine Ratio 18 Ratio (12-20); Bilirubin,Total 0.4 mg/dL (0.3-1.2); Blood Urea Nitrogen 18 mg/dL (9-23); Calcium 8.5 mg/dL (8.3-10.6); Calcium (Corrected) 9.5 mg/dL (8.5-10.1); Carbon Dioxide 20.9 mMol/L (20.0-31.0); Chloride 110 mMol/L (98-107); Creatinine (Component) 1.0 mg/dL (0.6-1.3); Estimated Creatinine Clearance 42.1 mL/min (>60); Globulin 3.2 gm/dL (2.3-3.5); Glucose 140 mg/dL (74-106); Osmolality,Calculated 281 (275-295); Potassium 3.6 mMol/L (3.4-5.1); Sodium 139 mMol/L (136-145); Total Protein 5.9 gm/dL (5.7-8.2); Triglycerides 144 mg/dL (30-150); eGFR > 60 See Note
--- NOTE | 2025-08-03 07:56 | PC.NURSE ---
MD Alicia aware of patient having a bright red blood stool in toilet. No new orders MD will assess at bedside.
[2025-08-03] MEDS: THIAMINE INJ 100 MG/ML VIAL 2 ML IVP (08:51)
[2025-08-03] MEDS: POTASSIUM CHL 10 mEq IVPB 10 MEQ/100 ML BAG 100 MEQ IV ×2 (08:51→10:15)
--- NOTE | 2025-08-03 10:23 | XR_ITS ---
EXAMINATION: PA lateral chest 2 views TECHNIQUE: Upright PA lateral chest 2 views Date and time: August 03, 2025, 1125 hours, comparison July 24, 2025 INDICATIONS: Bibasilar pneumonia on chest film July 24, 2025 FINDINGS: Persistent left base pneumonia Left internal jugular central line tip right atrium Normal heart size Mild vascular congestion IMPRESSION: Persistent left base pneumonia
--- NOTE | 2025-08-03 15:55 | PC.SS ---
Rounding Note: Plan is to wean TPN. D/C 2-3 days to SNF.
--- NOTE | 2025-08-03 16:05 | PD.RESPRO ---
Documentation for date of: 08/03/25 Subjective Subjective Interval history: Patient was seen and examined at bedside this morning. No acute overnight events. Patient this morning had 2 bowel movements which were bloody as per nurse and patient. Hemoglobin was stable this morning patient was not tachycardic. Patient was on regular diet therefore that her diet was changed to dysphagia 3 and surgeon was made aware of the episodes of bloody diarrhea and he stated that patient could continue to have diet at this time. Will continue TPN as patient is still not having appropriate p.o. intake. Would likely discontinue TPN tomorrow if patient has been appropriately eating her meals. Exam Vital Signs Temp Pulse Resp BP Pulse Ox O2 Del Method O2 Flow Rate 97.4 F 86 20 146/85 H 98 Room Air 1 08/03/25 12:00 08/03/25 16:00 08/03/25 12:00 08/03/25 12:00 08/03/25 12:00 08/03/25 12:00 08/02/25 11:05 Narrative Exam General: A/O x3, no acute distress, ill appearing Eyes: PERRL, EOMI. Anicteric, vision grossly intact. Ears: No ear pain, no ear discharge, Hearing grossly intact. Nose: No nasal discharge. Mouth/Throat: Moist mucous membranes, no redness, no lesions. Neck: Neck supple, non-tender, no cervical lymphadenopathy. Lungs: Clear YADY to auscultation and percussion, No accessory muscle use. Cardio: Normal S1/S2, regular rhythm, no murmurs, no JVD or carotid bruits. Abdomen: Soft, incisional site mildly tender, no palpable masses, peristalsis hypoactive, no guarding or rebound. Extremities: Symmetrical, no significant deformities, no peripheral edema , non-tender, peripheral pulses presents. Skin: No rashes, no lesions, warm to touch. LIJ catheter w/o erythema or drainage. Neuro: No focal neurological deficits. motor and sensory intact Psych: Cooperative, appropriate mood and effect. Objective Labs 08/04/25 04:51 08/04/25 04:51 Labs: Laboratory Results - last 24 hr 08/02/25 08/02/25 08/03/25 08:27 20:03 05:20 WBC 16.2 H RBC 3.49 L Hgb 10.5 L D 10.1 L Hct 31.6 L D 29.9 L MCV 86 MCH 28.9 MCHC 33.8 RDW Std Deviation 48.9 H Plt Count 492 H Neut % (Auto) 83 H Lymph % (Auto) 7 L [place] % (Auto) 6 Eos % (Auto) 2 Baso % (Auto) 1 Neut # (Auto) 13.4 H Lymph # (Auto) 1.1 [place] # (Auto) 1.0 H Eos # (Auto) 0.4 Baso # (Auto) 0.2 Immature Gran # (Auto) 0.16 H Absolute Nucleated RBC 0.00 Immature Gran % 1 H Nucleated RBC % 0 Sodium 139 Potassium 3.6 Chloride 110 H Carbon Dioxide 20.9 Anion Gap 8 BUN 18 Creatinine 1.0 Estim Creat Clear Calc 42.1 L eGFR > 60 BUN/Creatinine Ratio 18 Glucose 140 H Calculated Osmolality 281 Calcium 8.5 Corrected Calcium 9.5 Total Bilirubin 0.4 AST 16 ALT 9 L Alkaline Phosphatase 190 H Total Protein 5.9 Albumin 2.7 L Globulin 3.2 Albumin/Globulin Ratio 0.8 L Triglycerides 144 Blood Type O Positive Antibody Screen NEGATIVE Crossmatch See Detail Blood Bank Wristband ID Yes Quality Measures Quality Measures none Advance care planning discussed with:: patient Assessment & Plan Assessment Current Active Medications: Generic Name Dose Route Start Last Admin Trade Name Freq PRN Reason Stop Dose Admin Acetaminophen 650 mg 07/18/25 22:29 07/19/25 15:54 Acetaminophen 325 Mg Tablet PO 08/17/25 22:28 650 mg Q6H PRN Administration Fever >100.4 Hydrocodone Bitart/Acetaminophen 1 tab 08/01/25 14:26 08/03/25 10:28 Hydrocodone/Apap 5/325 Tablet PO 08/06/25 14:25 1 tab Q6HR PRN Administration PAIN 7-10 Dextrose 25 ml 07/27/25 11:54 Dextrose 50%-Water Inj 50 Ml Syringe IV 08/26/25 11:53 Q15MIN PRN BG 50-70 responsive npo pt Dextrose 50 ml 07/27/25 11:54 Dextrose 50%-Water Inj 50 Ml Syringe IV 08/26/25 11:53 Q15MIN PRN BG <50 OR BG <70 & pt unresponsive Glucagon 1 mg 07/27/25 11:54 Glucagon Inj 1 Mg Vial IM Q15MIN PRN BG <70, and no IV access Fat Emulsion Intravenous 500 mls @ 32 mls/hr 07/27/25 18:00 07/31/25 17:52 Intralipid 20% Iv IV 08/26/25 17:59 32 mls/hr On Hold: 08/02/25 14:15 [email or web address] SHAWNA Administration Potassium Acetate 50 meq/ 1,034 mls @ 30 mls/hr 08/02/25 17:59 08/02/25 17:47 Potassium Phosphate 15 mmol/ IV 08/03/25 17:59 30 mls/hr Magnesium Sulfate 2 gm/ Amino .Q24H SHAWNA Administration Acids Insulin Human Lispro 0 unit 07/27/25 12:00 08/03/25 12:00 Insulin Lispro (Admelog) 1 Unit/0.01 Ml Unit SC 08/26/25 11:59 Not Given Q6HR SHAWNA Protocol Ondansetron HCl 4 mg 07/18/25 22:29 07/24/25 10:29 Ondansetron Inj 2 Mg/Ml Inj 2 Ml IVP 08/17/25 22:28 4 mg Q6H PRN Administration NAUSEA OR VOMITING Protocol Thiamine HCl 100 mg 07/23/25 09:00 08/03/25 08:51 Thiamine Inj 100 Mg/Ml Vial 2 Ml IVP 08/22/25 08:59 100 mg QDAY SHAWNA Administration Plan Carla Washington 65F pmhx significant for prediabetes, anemia presented with worsening of abdominal pain, admitted for invasice adenocarcinoma of ascending colon s/p ex lap R hemicolectomy and ilio transverse anastomosis and E. coli bacteremia, found to have enterococcus and psudomonas UTI. #Invasive adenocarcinoma of ascending colon #S/P ex lap right hemicolectomy and ilio transverse anastomosis?POD 4 #E. coli bacteremia #Leukocytosis Patient presented with worsening abdominal pain since day before admit. WBCs today 16.[address] Abdomen in ED showed mass appearing to rise from the cecum. CEA this admit elevated at 34.7. Pt underwent colonoscopy this admit which revealed likely malignant and obstructive mass of ascending colon w/ Dr. Mc, and received surgical intervention as per HPI. Please see op note for details. Blood cultures positive for e.coli, Central line placed 07/22/25 for TPN. XR Abdomen 07/24/25 showed diffuse stomach and bowel dilation, as per HPI an NG tube was placed for decompression. Pt was placed on NPO. WBC still elevated despite abx, possibly reactive 2/2 TPN. Abd Xr showed Ileus Path report shows invasive adenocarcinoma pT3N0, surgical margins negative, all 37 lymph nodes benign IV pip-tazo 4.5gm (07/20-08/01), IV vancomycin (07/27-08/01) Plan: - Gensurg, GI, Oncology following. Dr. Weir (oncology) plans to interpret pathology of mass as available and follow up outpatient. - Acetaminophen/[place] 5/Zofran for symptomatic relief - Transition to regular diet if tolerating dysphagia 3 - Will discontinue TPN likely tomorrow, for now at a lower rate, and keep central line until ready to DC - Encouraging ambulation #STEPH #UTI, enterococcus and Pseudomonas Patient reported dysuria prior to arrival in the hospital, urine cultures positive for Enterococcus and Pseudomonas. Repeat UA showed evidence of UTI; pt has no genitourinary symptoms currently. Urine in container this morning was clear. Patient completed course of abx On admission, Cr 0.3-0.5, on 07/31, uptrended to 1.0, now 1.0. Ddx: abx s/e, prerenal Plan: - CTM for urinary symptoms - CTM renal panel - Consider Ulytes if Cr does not improve #Pericardial effusion Per CT ab/pelv in ED, 7mm effusion present. Possibly malignant in setting of large mass in the cecum/ colon. However pt is asymptomatic at this time, denies chest pain, SOB, palpitations. #Normocytic Anemia Acute on chronic, at this time most likely 2/2 cecal mass/possible malignancy. Iron panel this admit showed low Iron 5, TIBC 135, Iron Sat 3, Ferritin however normal at 135. Most likely mixed picture in setting of chronic disease with additional complication of volume loss in setting of malignancy and surgery. Hgb 07/26/25- 9. Pt has no signs/sympoms of active bleed. Hgb 10.1 today - 2 PRBC transfused yesterday #Elevated BP (resolved) On admission BP-160/85; pt has no HTN history and BP has been subsequently normal. - Monitor BP, currently stable Disposition: Pending better PO intake Diet: dysphagia 3 GI prophylaxis: none DVT prophylaxis: none Code: Full Case disclosed with Attending Dr. Maury Ugalde PGY2 Disclaimer: Even though this this note was dictated by speech recognition and even though it was carefully revised there may still be minor errors in logistics project manager due to voice recognition software. Attending Provider Attestation/Addendum I have seen and examined the patient. I was physically present for the [place] portions of the services provided including history, physical exam, diagnosis, treatment plans and orders. I agree with assessment and plan of care as documented by residents. Even though this this note was carefully revised there may still be minor errors in logistics project manager due to voice recognition software. Logan Mendiola MD
[2025-08-03] MEDS: MAGNESIUM SULF IV (17:33)
[2025-08-03] MEDS: POTASSIUM ACET IV (17:33)
[2025-08-03] MEDS: [UNRECOGNIZED DRUG - OTHER] IV (17:33)
[2025-08-03] MEDS: MULTIVITAMIN IV (17:33)
--- NOTE | 2025-08-03 21:03 | PD.IMPROG ---
Documentation for date of: 08/03/25 Subjective Subjective Interval history: Hemoglobin hematocrit 10.1 and 29.9 Sitting in the chair and able to eat Exam Vital Signs Temp Pulse Resp BP Pulse Ox O2 Del Method O2 Flow Rate 97.1 F 98 17 160/87 H 93 L Room Air 1 08/03/25 20:00 08/03/25 20:00 08/03/25 20:00 08/03/25 20:00 08/03/25 20:00 08/03/25 20:00 08/02/25 11:05 Objective Labs 08/03/25 05:20 08/03/25 05:20 Labs: Laboratory Results - last 24 hr 08/03/25 05:20 WBC 16.2 H RBC 3.49 L Hgb 10.1 L Hct 29.9 L MCV 86 MCH 28.9 MCHC 33.8 RDW Std Deviation 48.9 H Plt Count 492 H Neut % (Auto) 83 H Lymph % (Auto) 7 L [place] % (Auto) 6 Eos % (Auto) 2 Baso % (Auto) 1 Neut # (Auto) 13.4 H Lymph # (Auto) 1.1 [place] # (Auto) 1.0 H Eos # (Auto) 0.4 Baso # (Auto) 0.2 Immature Gran # (Auto) 0.16 H Absolute Nucleated RBC 0.00 Immature Gran % 1 H Nucleated RBC % 0 Sodium 139 Potassium 3.6 Chloride 110 H Carbon Dioxide 20.9 Anion Gap 8 BUN 18 Creatinine 1.0 Estim Creat Clear Calc 42.1 L eGFR > 60 BUN/Creatinine Ratio 18 Glucose 140 H Calculated Osmolality 281 Calcium 8.5 Corrected Calcium 9.5 Total Bilirubin 0.4 AST 16 ALT 9 L Alkaline Phosphatase 190 H Total Protein 5.9 Albumin 2.7 L Globulin 3.2 Albumin/Globulin Ratio 0.8 L Triglycerides 144 Impressions Impression: Status post surgical intervention for invasive adenocarcinoma with ileotransverse anastomosis Continue current management Assessment & Plan A&P Narrative 1. Large ascending colon mass, suspected cancer, attached to sigmoid colon status post right hemicolectomy ileotransverse anastomosis. 2. Significant leukocytosis pericardial effusion noted on CT UTI, appearing comfortable this a.m. with supportive care Postop day 1. 3. Will check pathology and follow patient upon discharge at the cancer treatment center. 4 Thank you very much for allowing me to evaluate this patient. Time Spent With Patient Time: Total time spent is greater than 50% in coordination of care (as documented) at patient's floor/unit and/or counseling patient:
[2025-08-04] VITALS: BP 156/88; PULSE 95; PULSE 98; RESP 24; TEMP 37.4; O2SAT 96
[2025-08-04 04:00] VITALS: BP 150/82; PULSE 101; PULSE 107; RESP 15; TEMP 36.4; O2SAT 93
[2025-08-04 05:51] LABS: Basophils # (Auto) 0.2 Thou/mm3 (0.0-0.2); Basophils % (Auto) 1 % (0-2.5); Eosinophils # (Auto) 0.5 Thou/mm3 (0.0-0.5); Eosinophils % (Auto) 4 % (0-10); Hematocrit 31.3 % (36.0-46.0); Hemoglobin 10.4 g/dL (12.0-16.0); Immature Granulocytes Auto 0.15 Thou/mm3 (0.00-0.00); Lymphocytes # (Auto) 1.1 Thou/mm3 (1.0-4.8); Lymphocytes % (Auto) 8 % (10-50); Mean Corpuscular HGB Conc 33.2 g/dl (31.0-37.0); Mean Corpuscular Hemoglobin 28.7 pg (25.0-35.0); Mean Corpuscular Volume 86 fL (80-100); Monocytes # (Auto) 0.9 Thou/mm3 (0.0-0.8); Monocytes % (Auto) 7 % (0-12); Neutrophils # (Auto) 10.9 Thou/mm3 (1.8-7.7); Neutrophils % (Auto) 80 % (37-80); Nucleated Red Blood Cell # 0.00 Thou/mm3 (0.00-0.00); Nucleated Red Blood Cell % 0 /100 WBC (0); Platelet Count 480 Thou/mm3 (140-440); RDW Standard Deviation 49.4 fL (36.4-46.3); Red Blood Count 3.63 Miln/mm3 (4.00-5.20); White Blood Count 13.7 Thou/mm3 (3.6-11.0)
[2025-08-04 06:00] VITALS: BMI 31.3
[2025-08-04 06:57] LABS: Alanine Aminotransferase 8 U/L (10-49); Albumin, Serum 3.0 gm/dL (3.4-4.8); Albumin/Globulin Ratio 0.9 (1.2-2.2); Alkaline Phosphatase 246 U/L (46-116); Anion Gap 12 (7-16); Aspartate Amino Transferase 17 U/L (0-34); BUN/Creatinine Ratio 15 Ratio (12-20); Bilirubin,Total 0.4 mg/dL (0.3-1.2); Blood Urea Nitrogen 15 mg/dL (9-23); Calcium 8.5 mg/dL (8.3-10.6); Calcium (Corrected) 9.3 mg/dL (8.5-10.1); Carbon Dioxide 21.6 mMol/L (20.0-31.0); Chloride 106 mMol/L (98-107); Creatinine (Component) 1.0 mg/dL (0.6-1.3); Estimated Creatinine Clearance 43.8 mL/min (>60); Globulin 3.3 gm/dL (2.3-3.5); Glucose 136 mg/dL (74-106); Osmolality,Calculated 282 (275-295); Potassium 3.5 mMol/L (3.4-5.1); Sodium 140 mMol/L (136-145); Total Protein 6.3 gm/dL (5.7-8.2); eGFR > 60 See Note
[2025-08-04 08:00] VITALS: BP 161/98; PULSE 96; PULSE 98; RESP 17; TEMP 36.6; O2SAT 97
[2025-08-04] MEDS: THIAMINE INJ 100 MG/ML VIAL 2 ML IVP (08:13)
[2025-08-04] MEDS: HYDROcodone/APAP 5/325 TABLET 1 TAB PO ×4 (08:17→22:01)
--- NOTE | 2025-08-04 08:38 | CHAP ---
Patient was visited by a Spiritual Care Volunteer on 08/03/2025 between 0900 and 1130 and received comfort, encouragement and/or prayer.
[2025-08-04 12:00] VITALS: BP 148/84; PULSE 89; PULSE 96; RESP 17; TEMP 36.4; O2SAT 97
[2025-08-04] MEDS: INSULIN LISPRO (AdmeLOG) 1 UNIT/0.01 ML UNIT SC (12:16)
[2025-08-04] MEDS: SIMETHICONE 80 MG CHEW PO (12:16)
[2025-08-04 12:51] VITALS: BMI 31.3
--- NOTE | 2025-08-04 13:37 | ESPR_ITS ---
Documentation for date of: 08/04/25 Subjective Subjective Interval history: Patient was seen evaluated bedside's morning. No acute overnight events. Patient states that she has been eating better and she has not been in the hospital fluid, but she has been eating what her family brings in from home. Patient's WBCs have been downtrending and hemoglobin has been stable at 10.4 today. Otherwise all other labs look fairly unchanged. At this time we will discontinue TPN and will transition to only p.o. intake at this time. Patient stated that she has had more bowel movements today, and none has been bloody. Patient mostly will be discharged in the next 24 to 48 hours. Exam Vital Signs Temp Pulse Resp BP Pulse Ox O2 Del Method O2 Flow Rate 97.6 F 89 17 148/84 H 97 Room Air 1 08/04/25 12:00 08/04/25 12:00 08/04/25 12:00 08/04/25 12:00 08/04/25 12:00 08/04/25 12:00 08/04/25 08:00 Narrative Exam General: A/O x3, no acute distress, ill appearing Eyes: PERRL, EOMI. Anicteric, vision grossly intact. Ears: No ear pain, no ear discharge, Hearing grossly intact. Nose: No nasal discharge. Mouth/Throat: Moist mucous membranes, no redness, no lesions. Neck: Neck supple, non-tender, no cervical lymphadenopathy. Lungs: Clear YADY to auscultation and percussion, No accessory muscle use. Cardio: Normal S1/S2, regular rhythm, no murmurs, no JVD or carotid bruits. Abdomen: Soft, incisional site mildly tender, no palpable masses, peristalsis hypoactive, no guarding or rebound. Extremities: Symmetrical, no significant deformities, no peripheral edema , non-tender, peripheral pulses presents. Skin: No rashes, no lesions, warm to touch. LIJ catheter w/o erythema or drainage. Neuro: No focal neurological deficits. motor and sensory intact Psych: Cooperative, appropriate mood and effect. Objective Labs 08/04/25 04:51 08/04/25 04:51 Labs: Laboratory Results - last 24 hr 08/04/25 04:51 WBC 13.7 H RBC 3.63 L Hgb 10.4 L Hct 31.3 L MCV 86 MCH 28.7 MCHC 33.2 RDW Std Deviation 49.4 H Plt Count 480 H Neut % (Auto) 80 Lymph % (Auto) 8 L [place] % (Auto) 7 Eos % (Auto) 4 Baso % (Auto) 1 Neut # (Auto) 10.9 H Lymph # (Auto) 1.1 [place] # (Auto) 0.9 H Eos # (Auto) 0.5 Baso # (Auto) 0.2 Immature Gran # (Auto) 0.15 H Absolute Nucleated RBC 0.00 Immature Gran % 1 H Nucleated RBC % 0 Sodium 140 Potassium 3.5 Chloride 106 Carbon Dioxide 21.6 Anion Gap 12 BUN 15 Creatinine 1.0 Estim Creat Clear Calc 43.8 L eGFR > 60 BUN/Creatinine Ratio 15 Glucose 136 H Calculated Osmolality 282 Calcium 8.5 Corrected Calcium 9.3 Total Bilirubin 0.4 AST 17 ALT 8 L Alkaline Phosphatase 246 H D Total Protein 6.3 Albumin 3.0 L Globulin 3.3 Albumin/Globulin Ratio 0.9 L Quality Measures Quality Measures none Advance care planning discussed with:: patient Assessment & Plan Assessment Current Active Medications: Generic Name Dose Route Start Last Admin Trade Name Freq PRN Reason Stop Dose Admin Acetaminophen 650 mg 07/18/25 22:29 07/19/25 15:54 Acetaminophen 325 Mg Tablet PO 08/17/25 22:28 650 mg Q6H PRN Administration Fever >100.4 Hydrocodone Bitart/Acetaminophen 1 tab 08/01/25 14:26 08/04/25 08:17 Hydrocodone/Apap 5/325 Tablet PO 08/06/25 14:25 1 tab Q6HR PRN Administration PAIN 7-10 Dextrose 25 ml 07/27/25 11:54 Dextrose 50%-Water Inj 50 Ml Syringe IV 08/26/25 11:53 Q15MIN PRN BG 50-70 responsive npo pt Dextrose 50 ml 07/27/25 11:54 Dextrose 50%-Water Inj 50 Ml Syringe IV 08/26/25 11:53 Q15MIN PRN BG <50 OR BG <70 & pt unresponsive Glucagon 1 mg 07/27/25 11:54 Glucagon Inj 1 Mg Vial IM Q15MIN PRN BG <70, and no IV access Fat Emulsion Intravenous 500 mls @ 32 mls/hr 07/27/25 18:00 07/31/25 17:52 Intralipid 20% Iv IV 08/26/25 17:59 32 mls/hr On Hold: 08/02/25 14:15 [id number]@1800 SHAWNA Administration Insulin Human Lispro 0 unit 08/04/25 11:30 08/04/25 12:16 Insulin Lispro (Admelog) 1 Unit/0.01 Ml Unit SC 09/03/25 11:29 1 unit AC SHAWNA Administration Protocol Ondansetron HCl 4 mg 07/18/25 22:29 07/24/25 10:29 Ondansetron Inj 2 Mg/Ml Inj 2 Ml IVP 08/17/25 22:28 4 mg Q6H PRN Administration NAUSEA OR VOMITING Protocol Thiamine HCl 100 mg 07/23/25 09:00 08/04/25 08:13 Thiamine Inj 100 Mg/Ml Vial 2 Ml IVP 08/22/25 08:59 100 mg QDAY SHAWNA Administration Plan Carla Washington 65F pmhx significant for prediabetes, anemia presented with worsening of abdominal pain, admitted for invasice adenocarcinoma of ascending colon s/p ex lap R hemicolectomy and ilio transverse anastomosis and E. coli bacteremia, found to have enterococcus and psudomonas UTI. #Invasive adenocarcinoma of ascending colon #S/P ex lap right hemicolectomy and ilio transverse anastomosis?POD 4 #E. coli bacteremia #Leukocytosis Patient presented with worsening abdominal pain since day before admit. WBCs today 16.[address] Abdomen in ED showed mass appearing to rise from the cecum. CEA this admit elevated at 34.7. Pt underwent colonoscopy this admit which revealed likely malignant and obstructive mass of ascending colon w/ Dr. Mc, and received surgical intervention as per HPI. Please see op note for details. Blood cultures positive for e.coli, Central line placed 07/22/25 for TPN. XR Abdomen 07/24/25 showed diffuse stomach and bowel dilation, as per HPI an NG tube was placed for decompression. Pt was placed on NPO. WBC still elevated despite abx, possibly reactive 2/2 TPN. Abd Xr showed Ileus Path report shows invasive adenocarcinoma pT3N0, surgical margins negative, all 37 lymph nodes benign IV pip-tazo 4.5gm (07/20-08/01), IV vancomycin (07/27-08/01) Plan: - Gensurg, GI, Oncology following. Dr. Weir (oncology) plans to interpret pathology of mass as available and follow up outpatient. - Acetaminophen/[place] 5/Zofran for symptomatic relief - Transition to regular diet as tolerating dysphagia 3 - Discontinue TPN likely tomorrow - Encouraging ambulation #STEPH #UTI, enterococcus and Pseudomonas Patient reported dysuria prior to arrival in the hospital, urine cultures positive for Enterococcus and Pseudomonas. Repeat UA showed evidence of UTI; pt has no genitourinary symptoms currently. Urine in container this morning was clear. Patient completed course of abx On admission, Cr 0.3-0.5, on 07/31, uptrended to 1.0, now 1.0. Ddx: abx s/e, prerenal Plan: - CTM for urinary symptoms - CTM renal panel - Consider Ulytes if Cr does not improve #Pericardial effusion Per CT ab/pelv in ED, 7mm effusion present. Possibly malignant in setting of large mass in the cecum/ colon. However pt is asymptomatic at this time, denies chest pain, SOB, palpitations. #Normocytic Anemia Acute on chronic, at this time most likely 2/2 cecal mass/possible malignancy. Iron panel this admit showed low Iron 5, TIBC 135, Iron Sat 3, Ferritin however normal at 135. Most likely mixed picture in setting of chronic disease with additional complication of volume loss in setting of malignancy and surgery. Hgb 07/26/25- 9. Pt has no signs/sympoms of active bleed. Hgb 10.4 #Elevated BP (resolved) On admission BP-160/85; pt has no HTN history and BP has been subsequently normal. - Monitor BP, currently stable Disposition: Possible DC in next 24-48 hr to SNF Diet: dysphagia 3 GI prophylaxis: none DVT prophylaxis: none Code: Full Case disclosed with Attending Dr. Maury Ugalde PGY2 Disclaimer: Even though this this note was dictated by speech recognition and even though it was carefully revised there may still be minor errors in detective narcotics and vice due to voice recognition software. Attending Provider Attestation/Addendum I have seen and examined the patient. I was physically present for the [place] portions of the services provided including history, physical exam, diagnosis, treatment plans and orders. I agree with assessment and plan of care as documented by residents. Patient seen and examined at bedside this morning. Appears comfortable, her abdominal pain continues to improve, only has mild pain around incision site. She has been able to tolerate diet, ambulate around the room. We will discontinue her TPN, continue to advance diet and start her on incentive spirometer. WBC has been downtrending, hemoglobin remains stable. She has been having bowel movement, bowel movement today did not have any blood. We will discuss with general surgery, if patient continues to be able to tolerate her diet and remained stable, anticipate discharge in next 24 to 48 hours. Even though this this note was carefully revised there may still be minor errors in detective narcotics and vice due to voice recognition software. Logan Mendiola MD
[2025-08-04 16:00] VITALS: BP 140/82; PULSE 101; PULSE 85; RESP 17; TEMP 36.3; O2SAT 97
--- NOTE | 2025-08-04 17:12 | PD.SURPROG ---
Documentation for date of: 08/04/25 Subjective Subjective Brief History: History presents revealed that the patient has been having some chronic pain in the lower abdomen since last February. Patient denies any history of nausea or vomiting or change in the bowel habits. Patient denies any history of blood in the stools. She has however lost about 20 pounds and has not been feeling well. She is also weak. She denies any other major medical illness. She came to the emergency room with with increasing pain. Narrative: The patient is tolerating diet and her TPN was discontinued. She is having bowel functions. Exam Vital Signs Temp Pulse Resp BP Pulse Ox O2 Del Method O2 Flow Rate 97.3 F 85 17 140/82 H 97 Room Air 1 08/04/25 16:00 08/04/25 16:00 08/04/25 16:00 08/04/25 16:00 08/04/25 16:00 08/04/25 16:00 08/04/25 08:00 Her vital signs are normal Routine Abdominal Exam Comments: Abdominal examination shows no undue distention Results Results: Laboratory Laboratory Narrative: Laboratory results show improving WBC Results: Imaging Imaging narrative: Chest x-ray shows left base pneumonia which seems to be not resolving Assessment & Plan Assessment Additional comments: Impression: [facility] Plan Plan: I will see the patient 1 week after the discharge to remove the jose l in my office. Thank you very much for all the help in managing this patient PROCEDURES: Procedures Exploratory laparotomy and right hemicolectomy and ilio transverse colostomy
[2025-08-04 20:00] VITALS: BP 148/87; PULSE 110; PULSE 89; RESP 18; TEMP 36.4; O2SAT 98
--- NOTE | 2025-08-04 21:37 | ESPR_ITS ---
Documentation for date of: 08/04/25 Subjective Subjective Interval history: Tolerating diet Having bowel movements Exam Vital Signs Temp Pulse Resp BP Pulse Ox O2 Del Method O2 Flow Rate 97.3 F 110 H 17 140/82 H 97 Room Air 1 08/04/25 16:00 08/04/25 20:00 08/04/25 16:00 08/04/25 16:00 08/04/25 16:00 08/04/25 16:00 08/04/25 08:00 Objective Labs 08/04/25 04:51 08/04/25 04:51 Labs: Laboratory Results - last 24 hr 08/04/25 04:51 WBC 13.7 H RBC 3.63 L Hgb 10.4 L Hct 31.3 L MCV 86 MCH 28.7 MCHC 33.2 RDW Std Deviation 49.4 H Plt Count 480 H Neut % (Auto) 80 Lymph % (Auto) 8 L [place] % (Auto) 7 Eos % (Auto) 4 Baso % (Auto) 1 Neut # (Auto) 10.9 H Lymph # (Auto) 1.1 [place] # (Auto) 0.9 H Eos # (Auto) 0.5 Baso # (Auto) 0.2 Immature Gran # (Auto) 0.15 H Absolute Nucleated RBC 0.00 Immature Gran % 1 H Nucleated RBC % 0 Sodium 140 Potassium 3.5 Chloride 106 Carbon Dioxide 21.6 Anion Gap 12 BUN 15 Creatinine 1.0 Estim Creat Clear Calc 43.8 L eGFR > 60 BUN/Creatinine Ratio 15 Glucose 136 H Calculated Osmolality 282 Calcium 8.5 Corrected Calcium 9.3 Total Bilirubin 0.4 AST 17 ALT 8 L Alkaline Phosphatase 246 H D Total Protein 6.3 Albumin 3.0 L Globulin 3.3 Albumin/Globulin Ratio 0.9 L Impressions Impression: Invasive adenocarcinoma status post resection of the right colon with ileotransverse anastomosis Tolerating diet and having bowel movements Assessment & Plan A&P Narrative 1. Large ascending colon mass, suspected cancer, attached to sigmoid colon status post right hemicolectomy ileotransverse anastomosis. 2. Significant leukocytosis pericardial effusion noted on CT UTI, appearing comfortable this a.m. with supportive care Postop day 1. 3. Will check pathology and follow patient upon discharge at the cancer treatment center. 4 Thank you very much for allowing me to evaluate this patient. Time Spent With Patient Time: Total time spent is greater than 50% in coordination of care (as documented) at patient's floor/unit and/or counseling patient:
[2025-08-05] VITALS: BP 133/81; PULSE 107; PULSE 99; RESP 17; TEMP 36.4; O2SAT 97
[2025-08-05 04:00] VITALS: BP 121/82; PULSE 101; PULSE 106; RESP 18; TEMP 36.6; O2SAT 95
[2025-08-05] MEDS: HYDROcodone/APAP 5/325 TABLET 1 TAB PO ×2 (04:05→11:26)
[2025-08-05 06:00] VITALS: BMI 31.3
[2025-08-05 06:00] LABS: Basophils # (Auto) 0.2 Thou/mm3 (0.0-0.2); Basophils % (Auto) 1 % (0-2.5); Eosinophils # (Auto) 0.7 Thou/mm3 (0.0-0.5); Eosinophils % (Auto) 5 % (0-10); Hematocrit 31.4 % (36.0-46.0); Hemoglobin 10.5 g/dL (12.0-16.0); Immature Granulocytes Auto 0.13 Thou/mm3 (0.00-0.00); Lymphocytes # (Auto) 1.1 Thou/mm3 (1.0-4.8); Lymphocytes % (Auto) 8 % (10-50); Mean Corpuscular HGB Conc 33.4 g/dl (31.0-37.0); Mean Corpuscular Hemoglobin 29.0 pg (25.0-35.0); Mean Corpuscular Volume 87 fL (80-100); Monocytes # (Auto) 1.0 Thou/mm3 (0.0-0.8); Monocytes % (Auto) 7 % (0-12); Neutrophils # (Auto) 11.8 Thou/mm3 (1.8-7.7); Neutrophils % (Auto) 79 % (37-80); Nucleated Red Blood Cell # 0.00 Thou/mm3 (0.00-0.00); Nucleated Red Blood Cell % 0 /100 WBC (0); Platelet Count 445 Thou/mm3 (140-440); RDW Standard Deviation 49.3 fL (36.4-46.3); Red Blood Count 3.62 Miln/mm3 (4.00-5.20); White Blood Count 15.0 Thou/mm3 (3.6-11.0)
[2025-08-05 06:38] LABS: Alanine Aminotransferase 10 U/L (10-49); Albumin, Serum 3.2 gm/dL (3.4-4.8); Anion Gap 13 (7-16); Aspartate Amino Transferase 12 U/L (0-34); BUN/Creatinine Ratio 12 Ratio (12-20); Bilirubin,Total 0.4 mg/dL (0.3-1.2); Blood Urea Nitrogen 14 mg/dL (9-23); Calcium 8.6 mg/dL (8.3-10.6); Carbon Dioxide 21.9 mMol/L (20.0-31.0); Chloride 105 mMol/L (98-107); Creatinine (Component) 1.2 mg/dL (0.6-1.3); Estimated Creatinine Clearance 36.5 mL/min (>60); Glucose 101 mg/dL (74-106); Osmolality,Calculated 279 (275-295); Potassium 3.6 mMol/L (3.4-5.1); Sodium 140 mMol/L (136-145); Total Protein 6.7 gm/dL (5.7-8.2); eGFR 50 See Note
[2025-08-05 06:39] LABS: Albumin/Globulin Ratio 0.9 (1.2-2.2); Alkaline Phosphatase 296 U/L (46-116); Calcium (Corrected) 9.2 mg/dL (8.5-10.1); Globulin 3.5 gm/dL (2.3-3.5)
[2025-08-05 07:58] VITALS: BP 145/87; PULSE 97; RESP 18; TEMP 36.6; O2SAT 95
[2025-08-05 08:00] VITALS: PULSE 97
[2025-08-05] MEDS: THIAMINE INJ 100 MG/ML VIAL 2 ML IVP (09:59)
--- NOTE | 2025-08-05 11:43 | PC.SS ---
rounding note: Physician team states possible d/c today to [facility]. Patient's white count went up.
[2025-08-05 12:00] VITALS: BP 152/85; PULSE 58; PULSE 80; RESP 17; TEMP 36.1; O2SAT 94
--- NOTE | 2025-08-05 13:20 | ESDS_ITS ---
<Statement entered by Roney Ugalde MD - 08/05/25 14:19> I have reviewed the note and agree with the resident's assessment & plan with exceptions as below. I have personally reviewed labs, imaging, home meds/prior records, examined the patient, formulated and discussed management plan with my attending Roney Ugalde PGY2 Disclaimer: Even though this this note was dictated by speech recognition and even though it was carefully revised there may still be minor errors in broach grinder due to voice recognition software. Planned Discharge Date 08/05/25 DS: Providers Provider Date of admission: 07/18/25 22:29 Primary care physician: ERIBERTO Martinez([facility]) Admitting Provider: Paramjit Haddad MD Attending Provider on Admission: Logan Mendiola MD Consults: 07/18/25 21:17 Consult to General Surgery Stat Comment: Cecal mass Consulting Provider: Riky Sánchez 07/19/25 10:24 Consult to Gastroenterology Routine Comment: Consulting Provider: Gay Mc 07/21/25 11:32 Consult to Hematology Routine Comment: Consulting Provider: Melvi Weir 07/21/25 21:05 Consult to Oncology Routine Comment: Consulting Provider: Dieter Solis 07/22/25 11:09 Referral Registered Dietitian Routine Comment: 07/26/25 00:44 Referral Wound Care Routine Comment: incontinent dermatitis, friction - medial thigh 07/27/25 07:26 Referral Physical Therapy Routine Comment: Physician Instructions: 07/27/25 07:30 Referral Jo-Ann Routine Comment: 07/27/25 07:58 Referral Physical Therapy Routine Comment: Physician Instructions: Instructions: For ambulation Attending Provider on DC: Logan Mendiola MD Discharging Provider: Logan Mendiola MD DS: Diagnosis Problem List Completed Was Problem List Reviewed/Reconciled?: Yes Hospital Course Hospital Course Hospital course: Summary: Carla Washington 65F pmhx significant for prediabetes, anemia presented to [facility] ED on 07/18 with worsening of abdominal pain, admitted for invasice adenocarcinoma of ascending colon s/p ex lap R hemicolectomy and ilio transverse anastomosis and E. coli bacteremia, found to have enterococcus and psudomonas UTI. Patient presented with worsening abdominal pain for multiple pains prior to admission. On admission CT abdomen showed very large vascular mass in right abdomen which appears to be arising from cecum most likely malignant neoplasm of the colon 11 X10.5X 9.2 cm, periaortic lymphadenopathy, lymph nodes peripheral to the larger mass. GI was consulted and patient underwent colonoscopy on 04/19 which showed severe diverticulosis sigmoid colon and descending colon with a likely malignant tumor which was biopsied. And subsequently on 07/21, patient underwent exploratory laparotomy with right hemicolectomy and any transverse anastomosis, and transfused 2 pRBC during surgery. Due to extensive bowel surgery, central line was slightly placed on 07/22 for TPN. On 07/24 abdominal x-ray showed diffuse stomach and bowel dilation and NG tube was placed for decompression. Course complicated by positive blood cultures for E. coli likely 2/2 Enterococcus and Pseudomonas urinary tract infection, and throughout hosptial stay, patient was placed on broad spectrum abx since admission. Of note, patient was found to have 7mm pericardial effusion however as patient is asymptomatic no intervention was done. On 07/31, patient tolerated clear liquid diet and on 08/02, TPN was discontinued. Patient continued to tolerate full liquid diet as well as dysphagia diet. However on 08/02, Hgb 6.4 and patient was transfused 2 pRBC, and patient reported 1 bloody bowel movement however expected postsurgery per surgeon. Patient did not have any more bloody bowel movements and on discharge, patient is hemodynamically stable, labs and vitals reviews and patient is ready to be discharged to SNF. Imagin/5 Abd US: Absent gallbladder, normal common bile duct, normal liver size no focal liver lesions 07/18 CTAP: very large vascular mass in right abdomen which appears to be arising from cecum most likely malignant neoplasm of the colon 11 X10.5X 9.2 cm, periaortic lymphadenopathy, lymph nodes peripheral to the larger mass 07/18 CXR; atelectasis and/or early pneumonia right base appears to be clinically correlated 07/24 KUB; small bowel obstruction 07/24 CXR; significant bibasilar pneumonia, mild heart failure 07/29 KUB; mild small bowel ileus 08/03 CXR; persistent left base pneumonia Discharge Recommendations: - Please take all medications as prescribed - START [place] one tablet eery 8 hours as needed for pain - Continue all home medications except as above - Please follow up with your PCP within one week of discharge and get renal panel blood test done - Please follow up with your surgeon within one week of discharge to get jose l out - Please follow up with your oncologist within one week of discharge - If your symptoms worsen, please seek immediate medical attention and return to your nearest emergency room. - If you do not have a PCP, you may follow up at the [facility] at [address], [facility] [address], Hospital Diagnoses: #Invasive adenocarcinoma of ascending colon #S/P ex lap right hemicolectomy and ilio transverse anastomosis?POD 4 #E. coli bacteremia #Leukocytosis #STEPH, resolved #UTI, enterococcus and Pseudomonas #Pericardial effusion #Normocytic Anemia #Elevated BP (resolved) Plan of care discussed with attending Dr. Mendiola, and PGY-2 Dr. Alicia. Kim Hanks, DO Internal Medicine, PGY-1 Time Spent with Patient Time attestation: Total time spent providing and/or coordinating discharge services: 45 min Time spent: Greater than 30 minutes Exam Vital Signs Temp Pulse Resp BP Pulse Ox O2 Del Method O2 Flow Rate 97.0 F 58 L 17 152/85 H 94 L Room Air 1 08/05/25 12:00 08/05/25 12:00 08/05/25 12:00 08/05/25 12:00 08/05/25 12:00 08/05/25 12:00 08/04/25 08:00 Narrative Exam GENERAL: AOx3, no acute distress HEENT: mucous membranes moist, bilateral sclera anicteric CARDIOVASCULAR: regular rate and rhythm, S1/S2 present, no murmurs appreciated PULMONARY: clear to auscultation bilaterally, no rales/rhonchi/wheezes ABDOMINAL: soft, non-tender, non-distended, no rebound/guarding, bowel sounds present, left abdominal incision site tender, jose l in place, clean with no drainage EXTREMITIES: no peripheral edema SKIN: warm and dry, intact, no rashes NEURO: CN II-XII grossly intact, no focal deficits, alert, following commands Discharge Plan Plan Patient Disposition: Xfer Skilled Nsg Fac (SNF) Care Plan Goals: Please follow-up with primary care physician within 2 or 3 days upon discharge Follow up with your general surgeon in 1 week to get jose l taken out. Follow up with your oncologist within 1 week. Please follow up with your primary care physician to get a renal function panel to monitor your creatinine We have prescribed norco 1 tablet every 8 hr as needed for pain for a total of 10 tablets Continue taking multivitamin, stool softner, and thiamine. Please come back to the ER if symptoms persist or worsen Prescriptions/Referrals Prescriptions/Med Rec: New multivitamin Tablet 1 tab PO QDAY Qty: 30 0RF senna 8.6 mg capsule 8.6 mg PO QDAY Qty: 30 0RF thiamine HCl (vitamin B1) 100 mg capsule 100 mg PO QDAY Qty: 30 0RF hydrocodone-acetaminophen 5-325 mg tablet 1 tab PO Q8H MDD 1 tab 3 times daily PRN (Reason: pain) Qty: 10 0RF Referrals: Ary Short FNP ([facility]) [Primary Care Provider] Dieter Solis MD [Physician, Radiation Oncology] Riky Sánchez MD [Physician, General Surgery] Patient/Caregiver Discharge Instructions Other Discharge Activity Instructions:: Please follow-up with primary care physician within 2 or 3 days upon discharge Follow up with your general surgeon in 1 week to get jose l taken out. Follow up with your oncologist within 1 week. Please follow up with your primary care physician to get a renal function panel to monitor your creatinine We have prescribed norco 1 tablet every 8 hr as needed for pain for a total of 10 tablets Continue taking multivitamin, stool softner, and thiamine. Please come back to the ER if symptoms persist or worsen Education Materials: Exploratory Laparotomy, Anatomy of the Digestive System Print Language: Albanian Stand Alone Forms: Brittani Award Info., Patient Portal Info Letter Discharge Order Discharge Orders: Discharge (Routine); Ordered 08/05/25 Ordered By: Roney Ugalde Quality Discharge Quality Measures VTE prophylaxis Attestestation MD Attestation I have seen and examined the patient. I was physically present for the [place] portions of the services provided including history, physical exam, diagnosis, treatment plans and orders. I agree with assessment and plan of care as documented by residents. Patient seen and examined at bedside this morning. Appears comfortable and denies any new complaints. Her abdominal pain around incision sites continues to improve. She has been tolerating diet, having bowel movement without blood. Vital signs and lab results are stable. Will discharge patient to SNF and urgency, antiemetics and multivitamin. Recommended to follow-up with PCP, general surgery, oncology. Recommended to obtain renal panel 1 week after discharge. Even though this this note was carefully revised there may still be minor errors in broach grinder due to voice recognition software. Logan Mendiola MD
--- NOTE | 2025-08-05 15:27 | PC.SS ---
Patient to d/c via gurney transport to [facility]. Reser# [id number] for 5p.m. Nursing and family aware. Facility aware
[2025-08-05 16:00] VITALS: BP 133/89; PULSE 103; PULSE 110; RESP 20; TEMP 36.9; O2SAT 92
--- NOTE | 2025-08-05 22:37 | PD.IMPROG ---
Documentation for date of: 08/05/25 Subjective Subjective Interval history: Late entry for the note case discussed with the internal medicine team no need for GI follow-up patient should be followed by oncology group locally here Exam Vital Signs Temp Pulse Resp BP Pulse Ox O2 Del Method O2 Flow Rate 98.4 F 110 H 20 133/89 H 92 L Room Air 1 08/05/25 16:00 08/05/25 16:00 08/05/25 16:00 08/05/25 16:00 08/05/25 16:00 08/05/25 16:00 08/04/25 08:00 Objective Labs 08/05/25 05:37 08/05/25 05:37 Labs: Laboratory Results - last 24 hr 08/05/25 05:37 WBC 15.0 H RBC 3.62 L Hgb 10.5 L Hct 31.4 L MCV 87 MCH 29.0 MCHC 33.4 RDW Std Deviation 49.3 H Plt Count 445 H D Neut % (Auto) 79 Lymph % (Auto) 8 L [place] % (Auto) 7 Eos % (Auto) 5 Baso % (Auto) 1 Neut # (Auto) 11.8 H Lymph # (Auto) 1.1 [place] # (Auto) 1.0 H Eos # (Auto) 0.7 H Baso # (Auto) 0.2 Immature Gran # (Auto) 0.13 H Absolute Nucleated RBC 0.00 Immature Gran % 1 H Nucleated RBC % 0 Sodium 140 Potassium 3.6 Chloride 105 Carbon Dioxide 21.9 Anion Gap 13 BUN 14 Creatinine 1.2 Estim Creat Clear Calc 36.5 L eGFR 50 L BUN/Creatinine Ratio 12 Glucose 101 Calculated Osmolality 279 Calcium 8.6 Corrected Calcium 9.2 Total Bilirubin 0.4 AST 12 ALT 10 Alkaline Phosphatase 296 H D Total Protein 6.7 Albumin 3.2 L Globulin 3.5 Albumin/Globulin Ratio 0.9 L Impressions Impression: Status post right hemicolectomy with ileotransverse anastomosis Outpatient follow-up with oncology Assessment & Plan A&P Narrative 1. Large ascending colon mass, suspected cancer, attached to sigmoid colon status post right hemicolectomy ileotransverse anastomosis. 2. Significant leukocytosis pericardial effusion noted on CT UTI, appearing comfortable this a.m. with supportive care Postop day 1. 3. Will check pathology and follow patient upon discharge at the cancer treatment center. 4 Thank you very much for allowing me to evaluate this patient. Time Spent With Patient Time: Total time spent is greater than 50% in coordination of care (as documented) at patient's floor/unit and/or counseling patient:
--- NOTE | 2025-08-06 08:39 | ESCONSULT_ITS ---
Addendum Consultation Addendum Date of report being addended: 08/06/25 Narrative: Patient out of the hospital at [facility]. Spoke with Dr. Weir, medical oncologist who saw patient in the hospital said he will be following patient. This was made known to Alie patient's [id number] who will also make appointment to have patient be seen by Dr. Weir.
== END 2025-08-05 17:42 | disposition skilled nursing facility (03) | DRG 329 ==
LOC: SERX 21:18 → SERHOLD 23:12 → S3NX 07-19 01:57
PROVIDERS: Emergency Medicine; Nurse Practitioner Family; Specialist; Student in an Organized Health Care Education/Training Program; Surgery; Admitting Provider Student in an Organized Health Care Education/Training Program; Emergency Provider Emergency Medicine; PCP Nurse Practitioner Primary Care; Visit Provider Student in an Organized Health Care Education/Training Program
PROC: 0DJD8ZZ Inspection of Lower Intestinal Tract, Via Natural or Artificial Opening Endoscopic (ICD-10-PCS; CPT 45378; principal; 2025-07-20 18:00)
PROC: 0D1L0Z4 Bypass Transverse Colon to Cutaneous, Open Approach (ICD-10-PCS; CPT 49000; principal; 2025-07-21 10:00)
DX: C18.2 Malignant neoplasm of ascending colon (principal); J18.9 Pneumonia, unspecified organism; E46 Unspecified protein-calorie malnutrition; I31.39 Other pericardial effusion (noninflammatory); N39.0 Urinary tract infection, site not specified; K91.89 Other postprocedural complications and disorders of digestive system; K56.7 Ileus, unspecified; N17.9 Acute kidney failure, unspecified; K56.609 Unspecified intestinal obstruction, unspecified as to partial versus complete obstruction; K31.0 Acute dilatation of stomach; E83.51 Hypocalcemia; E87.6 Hypokalemia; R63.4 Abnormal weight loss; E11.9 Type 2 diabetes mellitus without complications; G89.29 Other chronic pain; B96.20 Unspecified Escherichia coli [E. coli] as the cause of diseases classified elsewhere; B96.5 Pseudomonas (aeruginosa) (mallei) (pseudomallei) as the cause of diseases classified elsewhere; E77.8 Other disorders of glycoprotein metabolism; E87.70 Fluid overload, unspecified; D50.9 Iron deficiency anemia, unspecified; E88.09 Other disorders of plasma-protein metabolism, not elsewhere classified; K57.30 Diverticulosis of large intestine without perforation or abscess without bleeding; R62.7 Adult failure to thrive; Z90.710 Acquired absence of both cervix and uterus; Z87.440 Personal history of urinary (tract) infections; B95.2 Enterococcus as the cause of diseases classified elsewhere; R03.0 Elevated blood-pressure reading, without diagnosis of hypertension
CPT/HCPCS: 36415; 71045; 71046; 74018; 74019; 74177; 76705; 80053; 80202; 81001; 82378; 82728; 83540; 83550; 83605; 83690; 83735; 84100; 84145; 84478; 84484; 85014; 85018; 85025; 85610; 85730; 86850; 86900; 86901; 86923; 87040; 87077; 87086; 87186; 87811; 93005; 94762; 96361; 96365; 96375; 96376; 97162; 99285; A4217; A4314; A4649; J0131; J0612; J0696; J1100; J1171; J1200; J1815; J1885; J1938; J2250; J2270; J2371; J2405; J2543; J2704; J3010; J3373; J3411; J3475; J3480; J3490; J7030; J7120; J7999; P9016; Q9967; A9270; J1836

== ENCOUNTER 2025-08-08 15:54 | Inpatient (IN) | payer MEDICARE, MEDICAID, SELFPAY ==
--- NOTE | 2025-08-08 15:57 | EKG_ITS ---
[facility] Test Date: 2025-08-08 Pat Name: WILMAN ALCALA Department: Room: - Gender: Female Rehabilitation Aide: : 1960 Requested By: Mark Arias Order Number: [id number] Reading MD: Mark Arias Measurements Intervals [place] Rate: 135 P: 41 TN: 116 QRS: 38 QRSD: 81 T: -6 QT: 331 QTc: 496 Interpretive Statements SINUS TACHYCARDIA WITH SHORT TN INTERVAL NONSPECIFIC ST & T-WAVE ABNORMALITY ABNORMAL RHYTHM ECG Compared to ECG 07/18/2025 11:41:09 Short TN interval now present T-wave abnormality now present Sinus rhythm no longer present /store/S0/[id number].pdf
--- NOTE | 2025-08-08 15:58 | XR_ITS ---
EXAMINATION: AP chest single view TECHNIQUE: Portable AP sitting chest single view Date and time: August 08, 2025, 1606 hours, comparison August 03, 2025 INDICATIONS: Sepsis alert FINDINGS: Bibasilar pneumonia, significant left base Normal heart size Reduced inspiratory effort IMPRESSION: Bibasilar pneumonia
[2025-08-08 16:03] VITALS: BP 140/85; PULSE 140; RESP 25; TEMP 39.9; O2SAT 94; O2SAT 96; BMI 25.6
--- NOTE | 2025-08-08 16:20 | EDNOTE_ITS ---
ED General RME/HPI General Chief complaint: Nausea/Vomiting/Diarrhea Stated complaint: TACHYCARDIA Time Seen by Provider: 08/08/25 15:56 Arrival date/time: 08/08/25 15:54 CC: Tachycardia incision pain HPI patient presents to the ER via EMS who report the patient is tachypneic and tachycardic also warm to touch from assisted care facility the patient is recovering after tumor removal in her abdomen. Patient is complaining of incisional pain in her abdomen but has no other complaints including headache chest pain shortness of breath difficulty breathing painful urination or bloody urination. Related Data Previous Rx's ?Medication ?Instructions ?Recorded hydrocodone 5 mg-acetaminophen 325 1 tab PO Q8H PRN pa in #10 tabs 08/05/25 mg tablet multivitamin 1 tab PO QDAY #30 tabs 08/05 sennosides 8.6 mg capsule (senna) 8.6 mg PO QDAY #30 c aps 08/05/25 thiamine HCl (vitamin B1) 100 mg 100 mg PO QDAY #30 ca ps 08/05/25 capsule Allergies Allergy/AdvReac Type Severity Reaction Status Date / Time No Known Allergies Allergy Verified 08/08/25 17:08 Review of Systems Review of Systems Narrative Review of Systems: GEN: No fever, no chills, no weight loss EYES: No discharge, no visual changes, no pain HEENT: No ear pain, no congestion, no sore throat PULM: No shortness of breath, no cough, no congestion CV: No chest pain, no dyspnea on exertion, no palpitations GI: No nausea, no vomiting, no diarrhea, no pain, no constipation : No frequency, no urgency, no dysuria MUSC/SKEL: No joint pain, no back pain SKIN: + Incision pain, no rash PSYCH: No hallucinations, no depression HEME/LYMPH: No easy bleeding or bruising tendencies NEURO: No weakness, no headache Past Medical History Past Medical History NEUROLOGIC: Negative Neurological Disorders or Seizures CARDIAC: Positive Hypertension; Negative Cardiac Disorders or Congestive Heart Failure RESPIRATORY: Negative Chronic Obstructive Pulmonary Disease (COPD) or Asthma GASTROINTESTINAL: Negative Gastrointestinal Disorders GENITOURINARY: Negative Genitourinary Disorders or Renal Disease MUSCULOSKELETAL: Negative Musculoskeletal Disorders ENDOCRINE: Negative Endocrine Disorders, Diabetes Mellitus Type 1 or Diabetes Mellitus Type 2 HEMATOLOGIC: Negative Sickle Cell Disease OTHER HISTORY: Positive Blood Transfusions; Negative Autoimmune Disease, Down Syndrome, Developmental Delay, Falls, Blood Transfusion Reaction or Anesthesia Reactions Family History FAMILY HISTORY: Positive Family Cancer (Father leukemia); Negative Family Cardiac Disorders Surgical History SURGICAL: Positive Abdominal Surgery Social History SMOKING STATUS: Never smoker SECOND HAND EXPOSURE: No SUBSTANCE USE: does not use ED Exam Narrative Physical exam: [General: Moderate discomfort but not in any acute distress Head normocephalic HEENT: Eyes pupils are PERRLA EOMs are intact mouth pink dry membranes uvula is midline swallow symmetrical phonation is normal all other subsystems of HEENT within acceptable limits Neck is supple nontender Chest equal chest rise nontender to palpation Respiratory: Clear to auscultation no wheezes crackles or rubs CV: Rate rhythm is regular no murmurs rubs or clicks Abdomen is soft nontender Long horizontal incision line with jose l clean dry and intact. No surrounding erythema exudate or dehiscence. Mild vaginal perianal excoriation. Back: No CVA tenderness no spinous process tenderness from cervical spine thoracic and lumbar spine Skin: Intact no petechiae rash induration ulceration or crepitus Extremities: Moving all extremity against resistance cap refill less than 2 seconds neurosensory intact Neuro: Awake alert oriented x3 Glascow coma 15 no focal deficits] Course Course Course Narrative: Patient's case clinical findings laboratory results and imaging discussed with Wilver Sánchez the the surgeon who removed the cancerous mass from the colon at the beginning of this month who agrees to consult on the patient is requesting the patient be admitted on Cipro and Flagyl, admit to the hospitalist and they recommended to contact interventional radiology in the morning for percutaneous drainage of the abscesses on CT. Patient's case clinical presentation laboratory findings and imaging discussed with resident for Dr. Doshi who agrees to accept the patient for admission. Quality Measures none Orders Category Date Time Status Bedside COVID-19 Antigen Test NOW Care 08/08/25 15:[address] Screening NOW Care 08/08/25 17:14 Active Cooling Tower Operator STAT Care 08/08/25 15:57 Active Continuous Pulse Oximetry STAT Care 08/08/25 15:57 Completed EKG (ED ONLY) *Do not use* NOW Care 08/08/25 15:57 Completed In and Out Catheter X1PRN Care 08/08/25 15:57 Completed Insert IV NOW Care 08/08/25 15:57 Active NPO STAT Care 08/08/25 15:57 Active Strict Intake and Output Routine Care 08/08/25 15:[address] abdomen pelvis w con Stat Exams 08/08/25 17:14 Completed EKG (ED Only) Stat Exams 08/08/25 15:57 Draft XR chest 1V SEPSIS PROTOCOL Stat Exams 08/08/25 15:58 Completed B-Type Natriuretic Peptide Stat Lab 08/08/25 16:24 Completed Blood Culture (Lab) Stat Lab 08/08/25 16:41 Received CBC Stat Lab 08/08/25 16:24 Completed Comprehensive Metabolic Panel Stat Lab 08/08/25 16:24 Completed Influenza A & B Rapid Panel Stat Lab 08/08/25 16:45 Completed LDH (Lactate Dehydrogenase) Stat Lab 08/08/25 16:24 Completed Lactate (Lactic Acid) Stat Lab 08/08/25 16:24 Completed Lipase Stat Lab 08/08/25 16:24 Completed Magnesium Stat Lab 08/08/25 16:24 Completed Partial Thromboplastin Time Stat Lab 08/08/25 16:24 Completed Phosphorous Stat Lab 08/08/25 16:24 Completed Procalcitonin Stat Lab 08/08/25 16:24 Completed Prothrombin Time with INR Stat Lab 08/08/25 16:24 Completed Troponin I Stat Lab 08/08/25 16:24 Completed Urinalysis, C/S if Indicated Stat Lab 08/08/25 16:30 Completed Urine Culture Stat Lab 08/08/25 16:30 Received Acetaminophen Ivpb [Ofirmev Inj] Med 08/08/25 16:22 Discontinued 1,000 mg in 100 ml IV NOW Piper/Tazo 3.375 gm Premix [Zosyn] Med 08/08/25 19:07 Active 3.375 gm in 50 ml IV X1 Ringers Lactated 1000 ml [Lactated Ringers] 1,000 ml Med 08/08/25 15:57 Discontinued IV 999 mls/hr Ringers Lactated 500 ml [Lactated Ringers] 500 ml Med 08/08/25 16:37 Discontinued IV 999 mls/hr Oxygen Delivery NOW RT 08/08/25 15:57 Active Vital Signs Vital signs: Vital Signs Temperature 103.9 F H 08/08/25 16:03 Pulse Rate 140 H 08/08/25 16:03 Respiratory Rate 25 H 08/08/25 16:03 Blood Pressure 140/85 H 08/08/25 16:03 Pulse Oximetry (%) 94 L 08/08/25 16:03 Oxygen Delivery Method Room Air 08/08/25 16:03 Discharge Plan Plan Patient Disposition: Other Care w/in Hosp ([facility]) Patient condition on transfer: Stable Prescriptions/Referrals Prescriptions/Med Rec: No Action multivitamin Tablet 1 tab PO QDAY Qty: 30 0RF senna 8.6 mg capsule 8.6 mg PO QDAY Qty: 30 0RF thiamine HCl (vitamin B1) 100 mg capsule 100 mg PO QDAY Qty: 30 0RF hydrocodone-acetaminophen 5-325 mg tablet 1 tab PO Q8H MDD 1 tab 3 times daily PRN (Reason: pain) Qty: 10 0RF Referrals: Han CEBALLOS)Ary FNP [Primary Care Provider] - In 1 week Problem List Clinical Impression: Abdominal abscess, Abscess of pelvis, Fever, Tachycardia, Tachypnea Patient/Caregiver Discharge Instructions Print Language: Malay Stand Alone Forms: Brittani Award Info., Patient Portal Info Letter ZBIGNIEW/ERIBERTO Supervising Physician ZBIGNIEW/ERIBERTO Supervising Physician: Mark Ace ENP [facility] Clinical Information Provided by: patient and EMS Medical Records reviewed [facility] and EMS Meds/Rx considered, not ordered None Labs/Rad/Tests considered, not ordered None Chronic Illness/Social Conditions Explain: Recent abdominal surgery Labs Labs: interpreted by fl Lab(s) Interpretation(s): CBC shows no leukocytosis H&H of 10.9 and 33.1 no thrombocytopenia Coags within acceptable limits CMP shows sodium 135 potassium 3.3 glucose of 122 no other electrolyte abnormalities no renal impairment transaminitis or T. bili elevation. Lactic at 1.8 Troponin undetectable Lipase 77 Pro-Gonzalez at 1.17. Urine 1+ protein WBCs at 30 no bacteria. Leukocyte esterase positive nitrite negative Medication Administration(s) Medication Administration History Piperacillin/Tazobactam/Dextrose (Zosyn) 3.375 gm in 50 mls @ 100 mls/hr IV X1 ONE; Protocol Stop: 08/08/25 19:36 Discontinued Medications Lactated Ringer's (Lactated Ringers) 1,000 mls @ 999 mls/hr IV .Q1H1M ONE Stop: 08/08/25 16:57 Last Admin: 08/08/25 16:58 Dose: 999 mls/hr Documented By: ED Acetaminophen (Ofirmev Inj) 1,000 mg in 100 mls @ 250 mls/hr IV NOW ONE Stop: 08/08/25 16:45 Last Infusion: 08/08/25 17:26 Dose: Infused Documented By: Admin: 08/08/25 17:02 Dose: 250 mls/hr Documented By: ED Lactated Ringer's (Lactated Ringers) 500 mls @ 999 mls/hr IV .Q31M ONE Stop: 08/08/25 17:07 Last Infusion: 08/08/25 17:31 Dose: Infused Documented By: Admin: 08/08/25 17:00 Dose: 999 mls/hr Documented By: ED
[2025-08-08 16:31] LABS: Lactate (Lactic Acid) 1.8 mMol/L (0.4-2.0)
[2025-08-08 16:37] LABS: Basophils # (Auto) 0.1 Thou/mm3 (0.0-0.2); Basophils % (Auto) 1 % (0-2.5); Eosinophils # (Auto) 0.1 Thou/mm3 (0.0-0.5); Eosinophils % (Auto) 1 % (0-10); Hematocrit 33.1 % (36.0-46.0); Hemoglobin 10.9 g/dL (12.0-16.0); Immature Granulocytes Auto 0.13 Thou/mm3 (0.00-0.00); Lymphocytes # (Auto) 0.5 Thou/mm3 (1.0-4.8); Lymphocytes % (Auto) 5 % (10-50); Mean Corpuscular HGB Conc 32.9 g/dl (31.0-37.0); Mean Corpuscular Hemoglobin 28.0 pg (25.0-35.0); Mean Corpuscular Volume 85 fL (80-100); Monocytes # (Auto) 0.5 Thou/mm3 (0.0-0.8); Monocytes % (Auto) 4 % (0-12); Neutrophils # (Auto) 9.5 Thou/mm3 (1.8-7.7); Neutrophils % (Auto) 88 % (37-80); Nucleated Red Blood Cell # 0.00 Thou/mm3 (0.00-0.00); Nucleated Red Blood Cell % 0 /100 WBC (0); Platelet Count 401 Thou/mm3 (140-440); RDW Standard Deviation 46.0 fL (36.4-46.3); Red Blood Count 3.89 Miln/mm3 (4.00-5.20); White Blood Count 10.8 Thou/mm3 (3.6-11.0)
[2025-08-08 16:48] LABS: INR 1.1 (0.9-1.3); Partial Thromboplastin Time 30.7 Seconds (22.0-36.0); Prothrombin Time 11.9 Seconds (9.0-12.2)
[2025-08-08 16:49] LABS: Collection Type, Urine Clean Catch
[2025-08-08] MEDS: RINGERS LACTATED 1000 ML 1,000 ML 999 ML IV (16:58)
[2025-08-08 17:00] LABS: Bilirubin,Urine Negative (Negative); Blood,Urine Trace (Negative); Clarity,Urine Clear (Clear/Hazy); Color,Urine Yellow (Lt Yel-Yel); Glucose, Urine Negative (Negative); Ketones,Urine Negative (Negative); Leukocyte Esterase,Urine Positive (Negative); Nitrite,Urine Negative (Negative); PH,Urine 6.0 (5.0-7.0); Protein,Urine 1+ (Neg - Trace); RBC,Urine 4 /hpf (0-3); Specific Gravity,Urine 1.013 (1.001-1.035); Squamous Epithelial Cell,Urine < 1 /hpf (0-5); Urobilinogen,Urine Negative mg/dL (0.0-1.0); WBC,Urine 30 /hpf (0-5)
[2025-08-08] MEDS: RINGERS LACTATED 500 ML 500 ML 999 ML IV (17:00)
[2025-08-08] MEDS: ACETAMINOPHEN IVPB 1,000 MG/100 ML VIAL 250 MG IV (17:02)
[2025-08-08 17:04] LABS: Culture Indicated,Urine Yes
[2025-08-08 17:09] LABS: Alanine Aminotransferase < 7 U/L (10-49); Albumin, Serum 3.4 gm/dL (3.4-4.8); Albumin/Globulin Ratio 0.9 (1.2-2.2); Alkaline Phosphatase 217 U/L (46-116); Anion Gap 14 (7-16); Aspartate Amino Transferase 12 U/L (0-34); BUN/Creatinine Ratio 12 Ratio (12-20); Bilirubin,Total 0.6 mg/dL (0.3-1.2); Blood Urea Nitrogen 14 mg/dL (9-23); Calcium 8.7 mg/dL (8.3-10.6); Calcium (Corrected) 9.2 mg/dL (8.5-10.1); Carbon Dioxide 20.7 mMol/L (20.0-31.0); Chloride 100 mMol/L (98-107); Creatinine (Component) 1.2 mg/dL (0.6-1.3); Estimated Creatinine Clearance 32.9 mL/min (>60); Globulin 3.7 gm/dL (2.3-3.5); Glucose 122 mg/dL (74-106); LDH (Lactate Dehydrogenase) 160 U/L (120-246); Lipase 77 U/L (12-53); Magnesium 1.6 mg/dL (1.6-2.6); Osmolality,Calculated 271 (275-295); Phosphorous 3.6 mg/dL (2.4-5.1); Potassium 3.3 mMol/L (3.4-5.1); Procalcitonin 1.17 ng/ml (0.0-0.49); Sodium 135 mMol/L (136-145); Total Protein 7.1 gm/dL (5.7-8.2); Troponin I < 0.002 ng/mL (0.0-0.045); eGFR 50 See Note
--- NOTE | 2025-08-08 17:14 | XR_ITS ---
Examination: CT abdomen with intravenous contrast CT pelvis with intravenous contrast 2-D coronal reconstructions 2-D sagittal reconstructions Date and time of exam: August 08, 2025, 1816 hours INDICATIONS: Fever and abdominal pain today, history removal of abdominal tumor, large mass in the right abdomen arising from the colon on CT study July 18, 2025. CTDI: vol (mGy) 6.74 DLP: (mGycm) 343 Technique: Multiple axial sections of the abdomen and pelvis have been obtained. 64 slice high-resolution scanner used. 3 mm axial sections have been obtained, post intravenous injection 60 cc [id number]-370 2-D sagittal, coronal reconstructions obtained. Low dose protocols were performed. One or more of the following dose reduction techniques were used; automated exposure control, adjustment of the mA and/or KV according to patient size, use of iterative reconstruction technique. Findings: Left base pneumonia Small pericardial effusion No visualized liver or splenic lesion Absent gallbladder No pancreatic mass No hydronephrosis Fluid distended colon with colonic sutures Large focus of air density and soft tissue infection subcutaneous tissue right abdomen, for instance image 132 which has fluid components, axial image 136 This measures at least 16 cm in mediolateral dimension up to 8 cm in cephalocaudad dimension and measures up to 4.5 cm in AP dimension Dilated colonic loops Findings also suspicious for pelvic abscess, axial image 164, measuring 8 x 8 cm Urinary bladder intact IMPRESSION: Large abscess in the soft tissue right abdominal wall Prominent colonic and small bowel ileus Suspicious for 8 x 8 cm pelvic abscess Repeating the study with oral Gastrografin would be very helpful
[2025-08-08 17:24] LABS: Influenza A Ag Negative; Influenza B Ag Negative
[2025-08-08 17:25] LABS: B-Type Natriuretic Peptide 28 pg/mL (0-100)
[2025-08-08 17:39] VITALS: BP 140/80; PULSE 127; RESP 25; TEMP 39.2; O2SAT 94
[2025-08-08] MEDS: PIPER/TAZO 3.375 GM PREMIX 3.375 GM/50 ML BAG IV (19:49)
--- NOTE | 2025-08-08 19:50 | PC.NURSE ---
ADMIT DR WITH PT NOW.
[2025-08-08 20:24] VITALS: BP 125/80; PULSE 104; RESP 20; TEMP 37.8; O2SAT 96
--- NOTE | 2025-08-08 21:02 | ESHP_ITS ---
Documentation for date of: 08/08/25 HPI History of Present Illness Chief complaint: Fever History of present illness: This is a 65-year-old female with past medical history of invasive adenocarcinoma of ascending colon s/p ex lap R hemicolectomy and ilio transverse anastomosis on 07/21 presented to the ED with complaints of high fever and chills. She is currently staying at length regarding for her postoperative rehabilitation. She noticed fever associated with chills on 08/08 around 2 PM in the afternoon where she took a record of temperature and came out to be 103.2 which prompted her to ED visit. She also complains of abdominal pain around the incision site but denies any purulent discharge. She also complains of burning micturition since 1 day and says she has been feeling bloated since today morning. she denies any vomiting, nausea, chest pain, chest tightness, palpitations, any recent sick contacts. Her last bowel movement is on 08/08 morning. Hospital course on the last admission for the surgery was complicated by E. coli bacteremia , Pseudomonas and Enterococcus UTI infection. Throughout her course in the hospital during the last stay she was given antibiotics. She had 4 units of transfusion done -2 during the surgery and 2 before discharge for her low hemoglobin. Today's ED visit vitals: BP 140/85, pulse rate 140, respiratory 25, temperature 103.9 saturating 95% on room air. Pertinent lab findings are hemoglobin 10.9, hematocrit 33.1, WBC 10.8, sodium 135, potassium 3.3, lactic acid 1.8, Pro-Gonzalez 1.17, estimated creatinine clearance 32.9 and eGFR 50, glucose 122 urine leukocyte esterase positive, urine WBC 30 Imaging findings significant for CT abdomen showing right sided abdominal abscess measuring 16x8 cm and pelvic abscess 8x8cm.Prominent colonic and small bowel ileus. Past Medical History:Pre Diabetes .Anemia and got blood transfused at the beginning of this year , Treated for UTI 2 weeks back. Past surgical History: Cholecystecomy and 1 . Family History: Diverticulosis and Diverticulitis. Social History: Occasional Drinker. No Smoking or any other drug usage. ROS: As stated above. Review of Systems Review of Systems Systems Reviewed: All systems reviewed, normal except as documented Exam Vital Signs Temp Pulse Resp BP Pulse Ox O2 Del Method 100.0 F 104 H 20 125/80 96 Room Air 08/08/25 20:24 08/08/25 20:24 08/08/25 20:24 08/08/25 20:24 08/08/25 20:24 08/08/25 20:24 Narrative Exam GENERAL: NAD, AAOx3 HEENT: Moist mucosa. Eyes open, symmetrical, & clear CARDIO: Rapid regular rhythm Noted. No Murmurs. PULM: No noted coughing/dyspnea CTA B/L, no R/W/R GI: Abdomen soft and there is an surgical Incision site measuring 2x20cm with jose l over the abdomen,Red ,warm and tender but no pus drainage. There is a abscess approximately 10X8 cm in size Under the Right side of the Incison site which is fluctuant . SKIN/MSK/EXT: No wounds/rashes/amputations, no pain on palpation.. Pedal pulses present B/L. There is an excoriation at Rt groin area. NEURO: AAOx3, no focal neuro deficits, able to move all 4 extremities Results: Labs 08/09/25 04:53 08/09/25 12:41 Labs: Short CBC 08/08/25 Range/Units 16:24 WBC 10.8 (3.6-11.0) Thou/mm3 Hgb 10.9 L (12.0-16.0) g/dL Hct 33.1 L (36.0-46.0) % Plt Count 401 D (140-440) Thou/mm3 BMP 08/08/25 16:24 Sodium 135 L Potassium 3.3 L Chloride 100 Carbon Dioxide 20.7 BUN 14 Creatinine 1.2 Glucose 122 H Calcium 8.7 Cardiac Enzymes 08/08/25 Range/Units 16:24 Troponin I < 0.002 (0.0-0.045) ng/mL Liver Function 08/08/25 Range/Units 16:24 Total Bilirubin 0.6 (0.3-1.2) mg/dL AST 12 (0-34) U/L ALT < 7 L (10-49) U/L Alkaline Phosphatase 217 H (46-116) U/L Albumin 3.4 (3.4-4.8) gm/dL Urine 08/08/25 Range/Units 16:30 Urine Color Yellow (Lt Yel-Yel) Urine Clarity Clear (Clear/Hazy) Urine pH 6.0 (5.0-7.0) Ur Specific [place] 1.013 (1.001-1.035) Urine Protein 1+ A (Neg - Trace) Urine Glucose (UA) Negative (Negative) Quality Measures Quality Measures VTE prophylaxis Advance care planning discussed with:: patient Medications Home Medications and Allergies Home Medications ?Medication ?Instructions ?Recorded ?Confirmed ?Type acetaminophen 325 mg capsule 650 mg PO Q6H PRN fever o r pain 08/09/25 08/09/25 History Allergies Allergy/AdvReac Type Severity Reaction Status Date / Time No Known Allergies Allergy Verified 08/08/25 17:08 Visit Medications Acetaminophen (Acetaminophen 325 Mg Tablet) 650 mg PO Q6H PRN PRN Reason: Fever >101.5 Stop: 09/07/25 20:58 Heparin Sodium (Porcine) (Heparin Sod Inj 5000 Unit/Ml Vial) 5,000 unit SC BID SHAWNA Stop: 08/22/25 20:59 Sodium Chloride (Ns) 1,000 mls @ 65 mls/hr IV .[id number] SHAWNA Stop: 09/07/25 19:19 Ciprofloxacin/Dextrose (Cipro Ivpb) 200 mg in 100 mls @ 100 mls/hr IV Q12HR SHAWNA Stop: 08/15/25 20:54 Metronidazole (Flagyl 500 Mg Iv) 500 mg in 100 mls @ 200 mls/hr IV Q6HR SHAWNA Stop: 08/15/25 20:55 Ondansetron HCl (Ondansetron Inj 2 Mg/Ml Inj 2 Ml) 4 mg IVP Q6H PRN; Protocol PRN Reason: NAUSEA OR VOMITING Stop: 09/07/25 20:58 Discontinued Medications Lactated Ringer's (Lactated Ringers) 1,000 mls @ 999 mls/hr IV .Q1H1M ONE Stop: 08/08/25 16:57 Last Admin: 08/08/25 16:58 Dose: 999 mls/hr Acetaminophen (Ofirmev Inj) 1,000 mg in 100 mls @ 250 mls/hr IV NOW ONE Stop: 08/08/25 16:45 Last Infusion: 08/08/25 17:26 Dose: Infused Lactated Ringer's (Lactated Ringers) 500 mls @ 999 mls/hr IV .Q31M ONE Stop: 08/08/25 17:07 Last Infusion: 08/08/25 17:31 Dose: Infused Piperacillin/Tazobactam/Dextrose (Zosyn) 3.375 gm in 50 mls @ 100 mls/hr IV X1 ONE; Protocol Stop: 08/08/25 19:36 Last Admin: 08/08/25 19:49 Dose: 100 mls/hr Assessment & Plan Plan This is a 65-year-old female with past medical history of invasive adenocarcinoma of ascending colon s/p ex lap R hemicolectomy and ilio transverse anastomosis on 07/21 presented to the ED with complaints of high fever and chills. She she was admitted for pelvic and abdominal abscess. # Abdominal abscesses # Pelvic abscess # Hyperthermia #Adenocarcinoma S/P Right Hemicolectomy History of right hemicolectomy on 07/21 for adenocarcinoma and Hospital course complicated by E. coli bacteremia, Pseudomonas and Enterococcus UTI-requiring antibiotics in the hospital. High fever with temperature of 103.9 and NJ 140, respiratory 25. WBC is normal at 10.8 with elevated Pro-Gonzalez 1.17. Spoke with Dr Sánchez regarding both the abdominal and pelvic abscesses. He is hopeful that IR could drain pelvic abscess and abdominal abscess as well. If IR is unsuccessful in draining pelvic abscess he will reassess at that time. Dr Sánchez will see the patient tomorrow. -Starting on ciprofloxacin and metronidazole for her both abdominal and pelvic abscesses. -Consulted interventional radiology for potential drainage of her abscess. ?Follow-up with the blood culture result ?Ordered acetaminophen as required for high fever # Colonic and small bowel ileus Patient complains of bloating sensation starting this morning but she had bowel movement earlier today. CT scan showing colonic and small bowel ileus ?Starting on n.p.o. - Ordered NG tube 18 Pashto for her colon and small bowel dilatation. # Symptomatic UTI Complaints of burning micturation Urinary analysis shows urine leukocyte esterase positive, urine and WBC. ?Ciprofloxacin covers for her UTI as well ? Follow-up with urine culture. Code status: Full DVT prophylaxis:Heparin Diet: NPO Garsia: None Lines: PIV Supplemental O2: none Disposition: MedTele I discussed this case with my senior Dr. Delong and my attending Dr.Alhalaiebh Noah Lara MD PGY1 Attending Provider Attestation/Addendum After examination of the patient and review of the clinical data I feel that this patient needs admission to the hospital for further treatment/evaluation. Plan of care discussed with patient and is in agreement. I Paramjit Haddad MD, attest that I was physically present for sanford portions of evaluation, and examined patient, labs and imagings and plan of care were discussed with IM residents team, and I agree with the findings and plans documented above.
[2025-08-08] MEDS: SODIUM CHLORIDE 0.9% 1000 ML 1,000 ML 999 ML IV (21:15)
[2025-08-08] MEDS: metroNIDAZOLE/NS 500 MG IVPB 500 MG/100 ML BAG 200 MG IV (21:34)
[2025-08-08] MEDS: HEPARIN SOD INJ 5000 UNIT/ML VIAL SC (21:34)
[2025-08-08] MEDS: RINGERS LACTATED 1000 ML 1,000 ML 65 ML IV (21:53)
[2025-08-08 23:12] VITALS: BMI 24.4
--- NOTE | 2025-08-08 23:12 | XR_ITS ---
EXAMINATION: AP chest single view TECHNIQUE: AP portable upright chest single view INDICATIONS: Post orogastric tube placement FINDINGS: Orogastric tube in the stomach satisfactory position Pneumonia left base with atelectasis Normal heart size IMPRESSION: Orogastric tube in the stomach satisfactory position
--- NOTE | 2025-08-08 23:56 | PC.NURSE ---
called Dr. Ibarra regarding patient is NPO and has a history of prediabetes, per docotor to hold off on sugar checks for now, no new orders received.
[2025-08-09] VITALS (20 sets, daily range): BP systolic 88–136; BP diastolic 52–90; PULSE 99–138; RESP 17–97; TEMP 36.6–37.8; O2SAT 9–98; BMI 24.3
[2025-08-09] MEDS: CIPROFLOXACIN/D5w 400 MG IVPB 400 MG/200 ML BAG 200 MG IV (00:30)
--- NOTE | 2025-08-09 03:03 | PC.NURSE ---
called Dr. Lara regarding patient's HR sustaining in the 130s, per patient she is not in much pain, patient is also having loose stools yellowish brown in color, so far patient has had 3 loose stools, patient also has red dots on her face, concentrated on her forehead, per doctor will put in orders.
[2025-08-09] MEDS: RINGERS LACTATED 1000 ML 500 ML 999 ML IV (03:41)
[2025-08-09] MEDS: metroNIDAZOLE/NS 500 MG IVPB 500 MG/100 ML BAG 200 MG IV (05:22)
[2025-08-09 06:41] LABS: Basophils # (Auto) 0.1 Thou/mm3 (0.0-0.2); Basophils % (Auto) 1 % (0-2.5); Eosinophils # (Auto) 0.0 Thou/mm3 (0.0-0.5); Eosinophils % (Auto) 0 % (0-10); Hematocrit 29.8 % (36.0-46.0); Hemoglobin 9.7 g/dL (12.0-16.0); Immature Granulocytes Auto 0.09 Thou/mm3 (0.00-0.00); Lymphocytes # (Auto) 0.8 Thou/mm3 (1.0-4.8); Lymphocytes % (Auto) 6 % (10-50); Mean Corpuscular HGB Conc 32.6 g/dl (31.0-37.0); Mean Corpuscular Hemoglobin 27.9 pg (25.0-35.0); Mean Corpuscular Volume 86 fL (80-100); Monocytes # (Auto) 1.1 Thou/mm3 (0.0-0.8); Monocytes % (Auto) 8 % (0-12); Neutrophils # (Auto) 11.6 Thou/mm3 (1.8-7.7); Neutrophils % (Auto) 85 % (37-80); Nucleated Red Blood Cell # 0.00 Thou/mm3 (0.00-0.00); Nucleated Red Blood Cell % 0 /100 WBC (0); Platelet Count 351 Thou/mm3 (140-440); RDW Standard Deviation 47.3 fL (36.4-46.3); Red Blood Count 3.48 Miln/mm3 (4.00-5.20); White Blood Count 13.7 Thou/mm3 (3.6-11.0)
[2025-08-09 07:18] LABS: Alanine Aminotransferase < 7 U/L (10-49); Albumin, Serum 2.8 gm/dL (3.4-4.8); Albumin/Globulin Ratio 1.0 (1.2-2.2); Alkaline Phosphatase 165 U/L (46-116); Anion Gap 15 (7-16); Aspartate Amino Transferase 15 U/L (0-34); BUN/Creatinine Ratio 9 Ratio (12-20); Bilirubin,Total 0.7 mg/dL (0.3-1.2); Blood Urea Nitrogen 10 mg/dL (9-23); Calcium 7.8 mg/dL (8.3-10.6); Calcium (Corrected) 8.8 mg/dL (8.5-10.1); Carbon Dioxide 19.8 mMol/L (20.0-31.0); Cardiac Risk Estimate 8.6 RATIO (3.7-5.6); Chloride 106 mMol/L (98-107); Cholesterol 86 mg/dL (132-200); Creatinine (Component) 1.1 mg/dL (0.6-1.3); Estimated Creatinine Clearance 35.1 mL/min (>60); Globulin 2.9 gm/dL (2.3-3.5); Glucose 74 mg/dL (74-106); HDL Cholesterol 10 mg/dL (40-60); LDL Cholesterol,Calculated 53 mg/dL (0-130); Magnesium 1.4 mg/dL (1.6-2.6); Osmolality,Calculated 279 (275-295); Phosphorous 3.5 mg/dL (2.4-5.1); Sodium 141 mMol/L (136-145); Total Protein 5.7 gm/dL (5.7-8.2); Triglycerides 113 mg/dL (30-150); eGFR 56 See Note
[2025-08-09 07:25] LABS: Potassium 2.7 mMol/L (3.4-5.1)
--- NOTE | 2025-08-09 08:10 | XR_ITS ---
Examination: CT-guided percutaneous placement abscess drainage catheter pelvic abscess CT pelvis without intravenous contrast INDICATIONS: 7 cm pelvic abscess postop on CT abdomen/pelvis study August 08, 2025 Date and time of procedure: August 09, 2025, 1314 hours Informed consent provided. A timeout was completed verifying correct patient, procedure, site and positioning. Technique: Axial 3 mm sections were obtained for localization of the pelvic abscess Appropriate area is marked. The patient's site was prepped and draped in sterile fashion Maximal sterile barrier technique utilized, including hand hygiene Local anesthesia was obtained with 1% lidocaine. Low dose protocols were performed. One or more of the following dose reduction techniques were used; automated exposure control, adjustment of the mA and/or KV according to patient size, use of iterative reconstruction technique. Utilizing CT fluoroscopic guidance 5 Estonian catheter placed in the pelvic abscess followed by a 0.35 wire guide, dilators and a 6 Estonian pigtail abscess drainage catheter in proper position Purulent material was aspirated for culture and sensitivity, bacterial, aerobic anaerobic Patient appears in stable condition during this procedure. At completion of the procedure, the patient is in satisfactory condition. Estimated blood loss 0 cc Complete culture and sensitivity report to follow. Impression: Successful CT-guided percutaneous placement abscess drainage catheter pelvic abscess
[2025-08-09] MEDS: Magnesium Sulfate 2 GM Ivpb 2 GM/50 ML BAG IV (08:24)
[2025-08-09] MEDS: POTASSIUM CHL 10 mEq IVPB 10 MEQ/100 ML BAG 100 MEQ IV ×4 (08:24→11:33)
[2025-08-09] MEDS: VANCOMYCIN/NS 1 GM IVPB 200 ML IV (08:40)
[2025-08-09] MEDS: PIPER/TAZO INJ 4.5 GM in SODIUM CHLORIDE 0.9% (POP) 100 ML IV ×3 (08:54→21:37)
[2025-08-09] MEDS: ALBUMIN HUMAN-KJDA 25% IVPB 25 GM/100 ML BTL IV ×2 (10:40→11:59)
[2025-08-09] MEDS: MORPHINE SULF INJ 4 MG/ML VIAL 1 MG IVP ×2 (10:43→20:33)
[2025-08-09 10:48] LABS: Potassium 3.3 mMol/L (3.4-5.1)
[2025-08-09] MEDS: MICAFUNGIN SODIUM INJ 100 MG in SODIUM CHLORIDE 0.9% 100 ML IV (10:52)
[2025-08-09 13:15] LABS: Potassium 3.6 mMol/L (3.4-5.1)
[2025-08-09] MEDS: fentaNYL CIT INJ 50 mCg/ML AMP 2ML 75 MCG IVP (13:51)
--- NOTE | 2025-08-09 13:51 | ESPR_ITS ---
<Statement entered by Roney Ugalde MD - 08/09/25 16:45> I have reviewed the note and agree with the resident's assessment & plan with exceptions as below. I have personally reviewed labs, imaging, home meds/prior records, examined the patient, formulated and discussed management plan with my attending Patient was seen and examined bedside's morning. No acute overnight events. Patient was admitted overnight due to abdominal and pelvic abscess. On assessment patient had distention on the right lower abdomen around the incision and was intubated. Patient's WBC today was 13.7 and potassium was 2.7. Repleted potassium and gave albumin 50 g due to low albumin levels. Patient also got NG tube in place and will proceed with IR drainage of the abscess as per recommendations from general surgery. Placed the patient on vancomycin, Zosyn, and micafungin given risk of patient being immunocompromise. Will follow-up on cultures. Roney Ugalde PGY2 Disclaimer: Even though this this note was dictated by speech recognition and even though it was carefully revised there may still be minor errors in replanter due to voice recognition software. Documentation for date of: 08/09/25 Subjective Subjective Interval history: Patient admitted overnight. Patient reports worsening abdominal pain, high fever and vomiting x 3 episodes day of admission. Patient reports incision site distended and tender. Also endorses 1 day of burning on urination. Vitals labs reviewed. SBP 120-140, heart rate 120-140, mildly tachypneic. WBC 13.7, hemoglobin 9.7, potassium 2.7 repleted with 40 mEq, bicarb 19, creatinine 1.1, magnesium 1.4 repleted with 2 g, albumin 2.8. IR to drain abscess today started Zosyn, vancomycin and micafungin as patient did receive TPN on previous admission. Morphine as needed for pain. Give albumin 50 g. Continue NG tube and NPO for IR drainage. Follow up urine and blood Cx. Exam Vital Signs Temp Pulse Resp BP Pulse Ox O2 Del Method 97.8 F 115 H 20 120/90 H 96 Room Air 08/09/25 12:00 08/09/25 12:00 08/09/25 12:00 08/09/25 12:00 08/09/25 12:00 08/09/25 12:00 Narrative Exam GENERAL: AOx3, no acute distress HEENT: mucous membranes moist, bilateral sclera anicteric CARDIOVASCULAR: regular rate and rhythm, S1/S2 present, no murmurs appreciated PULMONARY: clear to auscultation bilaterally, no rales/rhonchi/wheezes ABDOMINAL: soft, no rebound/guarding, bowel sounds present, left abdominal incision site TTP, distended at site, jose l in place with no drainage well healing EXTREMITIES: no peripheral edema SKIN: warm and dry, intact, no rashes NEURO: CN II-XII grossly intact, no focal deficits, alert, following commands Objective Labs 08/10/25 05:15 08/10/25 12:26 Labs: Laboratory Results - last 24 hr 08/08/25 08/08/25 08/08/25 16:24 16:30 16:45 WBC 10.8 RBC 3.89 L Hgb 10.9 L Hct 33.1 L MCV 85 MCH 28.0 MCHC 32.9 RDW Std Deviation 46.0 Plt Count 401 D Neut % (Auto) 88 H Lymph % (Auto) 5 L [place] % (Auto) 4 Eos % (Auto) 1 Baso % (Auto) 1 Neut # (Auto) 9.5 H Lymph # (Auto) 0.5 L [place] # (Auto) 0.5 Eos # (Auto) 0.1 Baso # (Auto) 0.1 Immature Gran # (Auto) 0.13 H Absolute Nucleated RBC 0.00 Immature Gran % 1 H Nucleated RBC % 0 PT 11.9 INR 1.1 APTT 30.7 Sodium 135 L Potassium 3.3 L Chloride 100 Carbon Dioxide 20.7 Anion Gap 14 BUN 14 Creatinine 1.2 Estim Creat Clear Calc 32.9 L eGFR 50 L BUN/Creatinine Ratio 12 Glucose 122 H Calculated Osmolality 271 L Lactic Acid 1.8 Calcium 8.7 Corrected Calcium 9.2 Phosphorus 3.6 Magnesium 1.6 Total Bilirubin 0.6 AST 12 ALT < 7 L Alkaline Phosphatase 217 H Lactate Dehydrogenase 160 Troponin I < 0.002 B-Natriuretic Peptide 28 Total Protein 7.1 Albumin 3.4 Globulin 3.7 H Albumin/Globulin Ratio 0.9 L Triglycerides Cholesterol LDL Cholesterol, Calc HDL Cholesterol Cholesterol/HDL Ratio Lipase 77 H Procalcitonin 1.17 H Ur Collection Type Clean Catch Urine Color Yellow Urine Clarity Clear Urine pH 6.0 Ur Specific [place] 1.013 Urine Protein 1+ A Urine Glucose (UA) Negative Urine Ketones Negative Urine Blood Trace Urine Nitrite Negative Urine Bilirubin Negative Urine Urobilinogen (Auto) Negative Ur Leukocyte Esterase Positive Urine RBC 4 H Urine WBC 30 H Ur Squamous Epith Cells < 1 Urine Bacteria None Ur Culture Indicated? Yes Influenza A (Rapid) Negative Influenza B (Rapid) Negative 08/09/25 08/09/25 08/09/25 04:53 10:18 12:41 WBC 13.7 H RBC 3.48 L Hgb 9.7 L Hct 29.8 L MCV 86 MCH 27.9 MCHC 32.6 RDW Std Deviation 47.3 H Plt Count 351 D Neut % (Auto) 85 H Lymph % (Auto) 6 L [place] % (Auto) 8 Eos % (Auto) 0 Baso % (Auto) 1 Neut # (Auto) 11.6 H Lymph # (Auto) 0.8 L [place] # (Auto) 1.1 H Eos # (Auto) 0.0 Baso # (Auto) 0.1 Immature Gran # (Auto) 0.09 H Absolute Nucleated RBC 0.00 Immature Gran % 1 H Nucleated RBC % 0 PT INR APTT Sodium 141 Potassium 2.7 L* D 3.3 L D 3.6 Chloride 106 Carbon Dioxide 19.8 L Anion Gap 15 BUN 10 Creatinine 1.1 Estim Creat Clear Calc 35.1 L eGFR 56 L BUN/Creatinine Ratio 9 L Glucose 74 Calculated Osmolality 279 Lactic Acid Calcium 7.8 L Corrected Calcium 8.8 Phosphorus 3.5 Magnesium 1.4 L Total Bilirubin 0.7 AST 15 ALT < 7 L Alkaline Phosphatase 165 H D Lactate Dehydrogenase Troponin I B-Natriuretic Peptide Total Protein 5.7 Albumin 2.8 L D Globulin 2.9 Albumin/Globulin Ratio 1.0 L Triglycerides 113 Cholesterol 86 L LDL Cholesterol, Calc 53 HDL Cholesterol 10 L Cholesterol/HDL Ratio 8.6 H Lipase Procalcitonin Ur Collection Type Urine Color Urine Clarity Urine pH Ur Specific [place] Urine Protein Urine Glucose (UA) Urine Ketones Urine Blood Urine Nitrite Urine Bilirubin Urine Urobilinogen (Auto) Ur Leukocyte Esterase Urine RBC Urine WBC Ur Squamous Epith Cells Urine Bacteria Ur Culture Indicated? Influenza A (Rapid) Influenza B (Rapid) Quality Measures Quality Measures none Advance care planning discussed with:: patient Assessment & Plan Assessment Current Active Medications: Generic Name Dose Route Start Last Admin Trade Name Freq PRN Reason Stop Dose Admin Acetaminophen 650 mg 08/08/25 21:11 Acetaminophen 325 Mg Tablet PO 09/07/25 20:58 Q6H PRN Fever >100.4 Heparin Sodium (Porcine) 5,000 unit 08/08/25 21:00 08/09/25 10:56 Heparin Sod Inj 5000 Unit/Ml Vial SC 08/22/25 20:59 Not Given BID SHAWNA Piperacillin Sod/Tazobactam 100 mls @ 25 mls/hr 08/09/25 14:00 Sod 4.5 gm/ Sodium Chloride IV 08/16/25 13:59 Q8HR SHAWNA Protocol Vancomycin/Sodium Chloride 100 mls @ 120 mls/hr 08/09/25 22:00 Vancomycin/Ns 500 Mg Ivpb IV 08/16/25 21:59 Q12H SHAWNA Micafungin Sodium 100 mg/ 100 mls @ 100 mls/hr 08/09/25 10:30 08/09/25 10:52 Sodium Chloride IV 08/24/25 10:29 100 mls/hr QDAY SHAWNA Administration Albumin Human 25 gm in 100 mls @ 50 mls/hr 08/09/25 12:00 08/09/25 11:59 Albuminex 25% Ivpb IV 08/09/25 13:59 50 mls/hr X1 ONE Administration Morphine Sulfate 1 mg 08/09/25 10:24 08/09/25 10:43 Morphine Sulf Inj 4 Mg/Ml Vial IVP 08/14/25 11:59 1 mg Q2HR PRN Administration pain 4-10 Ondansetron HCl 4 mg 08/08/25 20:59 Ondansetron Inj 2 Mg/Ml Inj 2 Ml IVP 09/07/25 20:58 Q6H PRN NAUSEA OR VOMITING Protocol Pharmacy Consult 1 each 08/09/25 09:00 Vancomycin Pharmacy To Dose 1 Each Each IV 09/08/25 08:59 QDAY PRN PROTOCOL Plan Carla Washington 65F pmhx significant for invasive adenocarcinoma of ascending colon s/p ex lap R hemicolectomy and ilio transverse anastomosis 07/21, prediabetes, anemia presented to [facility] ED on 08/08 with one day of high fevers of 103 deg and vomiting green bilious and one day of burning on urination, admitted for large abdominal abscess, pelvic abscess and UTI. #Abdominal abscess #Pelvic abscess #Invasive adenocarcinoma of ascending colon s/p ex lap R hemicolectomy and ilio transverse anastomosis 07/21 Presented with 1 day of high fevers of 103 degrees and 3 episodes of bilious green vomiting. Patient admitted recently from 07/18- 08/05 for abdominal pain, found to have invasive adenocarcinoma s/p ex lap, given TPN through central line at the time. Patient's hospital course at that time was prolonged by E. coli bacteremia and Enterococcus and Pseudomonas UTI, treated w abx. On current admission, febrile temperature 103.9, tachycardic 140, tachypneic 25. WBC 13.7, Pro-Gonzalez elevated 1.7. NG tube placed. CXR bibasilar PNA per read unchanged from previous admission. s/p 3L of fluid in ED 08/08 CTAP; large abscess and soft tissue abdominal wall 16 x 8 x 4.5 cm, prominent colonic and small bowel ileus, suspicious for 8 x 8 cm pelvic abscess. Flagyl (08/08), Cipro (08/08) Plan: - Zosyn (08/08- ),Vanc (08/09- ), Micafungin (08/09- - IR CT guided drainage of abscess - Morphine 1 mg q2h prn for pain - s/p albumin 50 g today - F/u BCx #Colonic and small bowel ileus Patient reports daily formed nonbloody bowel movements as well as ability to pass gas. Vomiting x3 day prior to admission CTAP findings as above. Plan: - NG tube for decompression - Plan to advance diet once NG tube suctioned material decreases #UTI Reports 1 day of burning on urination. UA 1+ protein, trace blood, +LE, RBC 4, WBC 30. Plan: - Abx as above - F/u UCx #Sinus tachycardia Initial EKG sinus tachycardia with short IA interval rate 135, QTc 496. Likely 2/2 pain and abscess. Plan: - Med tele for monitoring - Abx as above #Normocytic anemia, stable Hgb admission 10.9 and 9.7 s/p 3L fluids. Iron panel previous missions showed low iron 5, TIBC 135, iron saturation 3, ferritin 135. Likely secondary to chronic disease of adenocarcinoma. Denies melena, hematochezia or hematemasis Plan: - CTM CBC Hospital management: Lines: PIV Diet: NPO Bowel: not indicated GI prophylaxis: not indicated DVT prophylaxis: heparin q12 Disposition: med tele, IR drainage abscess CODE STATUS: FULL CODE Plan of care discussed with attending Dr. Maier, and PGY-2 Dr. Alicia. Kim Hanks DO PGY-1 Internal Medicine Attending Provider Attestation/Addendum Connie, Melody Maier DO, attest that I was physically present for the [place] portions of the service and evaluated the patient with the resident and I reviewed and discussed the case with the resident and agree with the resident's findings and plans of care as documented above Patient seen and evaluated this AM. Patient readmitted due to sudden onset of abdominal pain that began overnight. Patient was recently discharged on 08/05/25 for abdominal pain 2/2 invasive adenocarcinoma of ascending colon s/p ex lap R hemicolectomy and iliotransverse anastomosis and treated for E. coli bacteremia, as well as enterococcus and pseudomonas UTI. Upon evaluation in the ED, pt was found to have multiple pelvic abscesses and a large pelvic abscess in the abdominal wall. Pt was started on vancomycin and zosyn on admission. However, patient had also been on TPN during previous admission for a prolonged period of time. Due to concern for candidemia, will start patient on micafungin as well. Will f/u with abscess drainage cultures. NG tube remains in place. Patient currently denies any nausea or vomiting. She also denies any diarrhea. Patient had been doing well, ambulatory and eating well at the SNF up to one day prior to presentation.
[2025-08-09] MEDS: LIDOCAINE INJ PF 1% 30 ML VIAL 8 ML INFL (13:54)
--- NOTE | 2025-08-09 15:35 | PC.NURSE ---
Patient back to room post procedure at CT. No acute changes or deviations from baseline. EUGENE Sood at bedside
--- NOTE | 2025-08-09 15:52 | PD.SURPROG ---
Documentation for date of: 08/09/25 Subjective Subjective Brief History: Patient was readmitted with fever and chills from the group home after discharge few days ago Narrative: She is not vomiting she is having bowel movements and tolerating diet Exam Vital Signs Temp Pulse Resp BP Pulse Ox O2 Del Method 97.8 F 112 H 20 127/71 98 Room Air 08/09/25 15:32 08/09/25 15:32 08/09/25 15:32 08/09/25 15:32 08/09/25 15:32 08/09/25 15:32 Vital signs showed tachycardia with heart rate around 112 Routine Abdominal Exam Comments: Abdominal examination shows some tenderness over the incision and some possible fluctuation Results Results: Laboratory Laboratory Narrative: WBC is within normal limits Results: Imaging Imaging narrative: CT scan showed at least 2 collections in the abdomen and 1 in the subcutaneous tissue where the jose l are Assessment & Plan Assessment Additional comments: Impression: Multiple abscesses following right hemicolectomy Plan Plan: Will ask radiologist to drain these abscesses and if it is unsuccessful she will require exploration to drain. I will follow the patient with you.
--- NOTE | 2025-08-09 16:11 | PD.SURPROG ---
Documentation for date of: 08/09/25 Subjective Subjective Brief History: Patient was readmitted with fever and chills from the long term after discharge few days ago Exam Vital Signs Temp Pulse Resp BP Pulse Ox O2 Del Method 97.8 F 112 H 20 127/71 98 Room Air 08/09/25 15:32 08/09/25 15:32 08/09/25 15:32 08/09/25 15:32 08/09/25 15:32 08/09/25 15:32 Assessment & Plan Assessment Additional comments: Impression: Multiple intra-abdominal abscesses Possible subcutaneous collection under the incision Plan Plan: I reviewed the CT scan with Dr. Busch and it appears that the patient has another collection in the right lower quadrant where the cancer is mass was removed. It has air-fluid levels and looks more like an abscess. This is large enough to be a small bowel but it is well-circumscribed collection containing some purulent material. We will ask Dr. Busch to drain it tomorrow
[2025-08-09] MEDS: HEPARIN SOD INJ 5000 UNIT/ML VIAL SC (20:33)
[2025-08-09] MEDS: VANCOMYCIN/NS 500 MG IVPB 100 ML 120 MG IV (21:36)
[2025-08-10] VITALS (20 sets, daily range): BP systolic 101–158; BP diastolic 46–79; PULSE 84–115; RESP 18–96; TEMP 36.2–37.9; O2SAT 94–99
[2025-08-10] MEDS: PIPER/TAZO INJ 4.5 GM in SODIUM CHLORIDE 0.9% (POP) 100 ML IV ×3 (05:13→22:38)
[2025-08-10] MEDS: MORPHINE SULF INJ 4 MG/ML VIAL 1 MG IVP ×2 (05:25→09:44)
[2025-08-10 05:48] LABS: Basophils # (Auto) 0.2 Thou/mm3 (0.0-0.2); Basophils % (Auto) 1 % (0-2.5); Eosinophils # (Auto) 0.1 Thou/mm3 (0.0-0.5); Eosinophils % (Auto) 1 % (0-10); Hematocrit 27.2 % (36.0-46.0); Immature Granulocytes Auto 0.24 Thou/mm3 (0.00-0.00); Lymphocytes # (Auto) 0.7 Thou/mm3 (1.0-4.8); Lymphocytes % (Auto) 6 % (10-50); Mean Corpuscular HGB Conc 31.3 g/dl (31.0-37.0); Mean Corpuscular Hemoglobin 28.4 pg (25.0-35.0); Mean Corpuscular Volume 91 fL (80-100); Monocytes # (Auto) 1.2 Thou/mm3 (0.0-0.8); Monocytes % (Auto) 9 % (0-12); Neutrophils # (Auto) 10.8 Thou/mm3 (1.8-7.7); Neutrophils % (Auto) 82 % (37-80); Nucleated Red Blood Cell # 0.00 Thou/mm3 (0.00-0.00); Nucleated Red Blood Cell % 0 /100 WBC (0); Platelet Count 407 Thou/mm3 (140-440); RDW Standard Deviation 52.0 fL (36.4-46.3); Red Blood Count 2.99 Miln/mm3 (4.00-5.20); White Blood Count 13.3 Thou/mm3 (3.6-11.0)
[2025-08-10 05:49] LABS: Hemoglobin 8.5 g/dL (12.0-16.0)
[2025-08-10 06:28] LABS: Alanine Aminotransferase < 7 U/L (10-49); Albumin, Serum 3.1 gm/dL (3.4-4.8); Albumin/Globulin Ratio 1.1 (1.2-2.2); Alkaline Phosphatase 119 U/L (46-116); Anion Gap 21 (7-16); Aspartate Amino Transferase 14 U/L (0-34); BUN/Creatinine Ratio 12 Ratio (12-20); Bilirubin,Total 0.7 mg/dL (0.3-1.2); Blood Urea Nitrogen 12 mg/dL (9-23); Calcium 8.3 mg/dL (8.3-10.6); Calcium (Corrected) 9.0 mg/dL (8.5-10.1); Carbon Dioxide 16.2 mMol/L (20.0-31.0); Chloride 111 mMol/L (98-107); Creatinine (Component) 1.0 mg/dL (0.6-1.3); Estimated Creatinine Clearance 38.7 mL/min (>60); Globulin 2.7 gm/dL (2.3-3.5); Glucose 72 mg/dL (74-106); Magnesium 1.9 mg/dL (1.6-2.6); Osmolality,Calculated 292 (275-295); Phosphorous 2.8 mg/dL (2.4-5.1); Potassium 2.9 mMol/L (3.4-5.1); Sodium 148 mMol/L (136-145); Total Protein 5.8 gm/dL (5.7-8.2); eGFR > 60 See Note
[2025-08-10] MEDS: POT CHL ADDITIVE 40 MEQ in DEXTROSE 5%-WATER 1,000 ML 75 MEQ IV (09:48)
[2025-08-10] MEDS: HEPARIN SOD INJ 5000 UNIT/ML VIAL SC ×2 (09:51→22:18)
[2025-08-10] MEDS: POT PHOS 15 mMol in NS 250 ML 15 MMOL/250 ML BAG 62.5 MMOL IV ×2 (10:02→16:42)
[2025-08-10] MEDS: MICAFUNGIN SODIUM INJ 100 MG in SODIUM CHLORIDE 0.9% 100 ML IV (10:07)
[2025-08-10] MEDS: VANCOMYCIN/NS 500 MG IVPB 100 ML 120 MG IV ×2 (10:08→22:52)
[2025-08-10 10:54] LABS: Lactate (Lactic Acid) 1.2 mMol/L (0.4-2.0)
[2025-08-10] MEDS: ACETAMINOPHEN IVPB 1,000 MG/100 ML VIAL 250 MG IV (12:36)
[2025-08-10 12:55] LABS: Potassium 3.0 mMol/L (3.4-5.1)
--- NOTE | 2025-08-10 14:03 | XR_ITS ---
Examination: CT abdomen and pelvis without contrast. Coronal 3-D reconstructions. Sagittal 2-D reconstructions. Date and time: August 08, 2025, 1816 hours INDICATIONS: Multiple abscesses post surgery for removal of large malignant mass in the lower abdomen on the right CTDI: vol (mGy): 7.25 DLP: (mGycm): 385 Technique: Axial images of the abdomen have been obtained, 3 mm slice thickness Intravenous contrast material has not been administered. Low dose protocols were performed. One or more of the following dose reduction techniques were used; automated exposure control, adjustment of the mA and/or KV according to patient size, use of iterative reconstruction technique. Findings: Pneumonia left base No focal liver or splenic lesions Absent gallbladder Primarily air-containing abscess in the subcutaneous fatty tissue lateral abdominal wall Mild large abscess in the right abdomen axial image 198 measuring at least 13 x 10 cm Catheter in satisfactory position for the abscess in the pelvis IMPRESSION: Additional abscesses right lateral abdominal wall and right abdomen as above
--- NOTE | 2025-08-10 14:29 | PD.RESPRO ---
Documentation for date of: 08/10/25 Senior resident attestation: Patient evaluated and examined at the bedside, plan of care discussed with rest of the team including my attending physician, except as noted. Patient is a 65-year-old female past medical history of invasive carcinoma status post ex lap and right hemicolectomy, and renal status post anastomosis, on 07/21/2025, hospital course was complicated by E. coli bacteremia, Pseudomonas and vancomycin resistant Enterococcus UTI infection, completed antibiotics, patient was discharged home. After tolerating p.o. diet. No patient presented with acute onset of fever shaking chills, and swelling in the abdomen, found to have CT abdominal pelvis was done which found pelvic abscess and right abdominal wall abscess, general surgeon Dr. Suggs was consulted to evaluate the patient, recommended CT-guided IR abscess drainage, pelvic abscess was drained in 08/09/2025, patient has another large abscess in right abdominal wall, containing air, pending IR guided drainage. Memo were removed with Dr. Suggs but no drainage noted yet. Patient continues to stay n.p.o., NG tube in place. Currently on IV antibiotics, initiated micafungin due to concern for candidal infection following peritonitis, pending blood and wound cultures. Quresh PGY3 Subjective Subjective Interval history: No acute overnight events. Patient is examined at bedside. Patient reports minimal pain at pelvic abscess drain site, abdominal pain localized to right side near incision. Memo removed yesterday by surgeon Dr. Suggs. Patient denies any fever/chills or nausea/vomiting. Vitals labs reviewed. SBP 100-130, heart rate sinus tachycardia 100-115, WBC 13.3, hemoglobin 8.5 from 9.7, sodium 148, potassium 2.9 repleted with 40mEq KCL in IVR and 30 mEq Kphos, chloride 111, bicarb decreased from 19 now 16, creatinine 1.0, anion gap 21, blood culture. No growth after 24 hours. IR to drain abdominal abscess today. Continue Vanco mycin and Zosyn and micafungin. Continue NG tube. For hypernatremia and hypokalemia, started D5 W with KCl additive at 75 cc an hour. Afternoon K 3.0, repleted with KCl 40 mEq and afternoon lactic acid 1.2. Exam Vital Signs Temp Pulse Resp BP Pulse Ox O2 Del Method 100.2 F 105 H 26 H 138/74 H 95 Room Air 08/10/25 12:42 08/10/25 12:00 08/10/25 11:45 08/10/25 11:45 08/10/25 11:45 08/10/25 11:45 Narrative Exam GENERAL: AOx3, no acute distress HEENT: mucous membranes moist, bilateral sclera anicteric CARDIOVASCULAR: regular rate and rhythm, S1/S2 present, no murmurs appreciated PULMONARY: clear to auscultation bilaterally, no rales/rhonchi/wheezes ABDOMINAL: soft, no rebound/guarding, bowel sounds present, left abdominal incision site TTP, distended at site, memo removed, no drainage well healing, L abdominal wound drain for pelvic abscess intact draining brown minimal fluid EXTREMITIES: no peripheral edema SKIN: warm and dry, intact, no rashes NEURO: CN II-XII grossly intact, no focal deficits, alert, following commands Objective Labs 08/11/25 04:45 08/11/25 04:45 Labs: Laboratory Results - last 24 hr 08/10/25 08/10/25 08/10/25 05:15 10:35 12:26 WBC 13.3 H RBC 2.99 L Hgb 8.5 L Hct 27.2 L MCV 91 MCH 28.4 MCHC 31.3 RDW Std Deviation 52.0 H Plt Count 407 D Neut % (Auto) 82 H Lymph % (Auto) 6 L [place] % (Auto) 9 Eos % (Auto) 1 Baso % (Auto) 1 Neut # (Auto) 10.8 H Lymph # (Auto) 0.7 L [place] # (Auto) 1.2 H Eos # (Auto) 0.1 Baso # (Auto) 0.2 Immature Gran # (Auto) 0.24 H Absolute Nucleated RBC 0.00 Immature Gran % 2 H Nucleated RBC % 0 Sodium 148 H Potassium 2.9 L D 3.0 L Chloride 111 H Carbon Dioxide 16.2 L Anion Gap 21 H BUN 12 Creatinine 1.0 Estim Creat Clear Calc 38.7 L eGFR > 60 BUN/Creatinine Ratio 12 Glucose 72 L Calculated Osmolality 292 Lactic Acid 1.2 Calcium 8.3 Corrected Calcium 9.0 Phosphorus 2.8 Magnesium 1.9 Total Bilirubin 0.7 AST 14 ALT < 7 L Alkaline Phosphatase 119 H D Total Protein 5.8 Albumin 3.1 L Globulin 2.7 Albumin/Globulin Ratio 1.1 L Quality Measures Quality Measures VTE prophylaxis Advance care planning discussed with:: patient Assessment & Plan Assessment Current Active Medications: Generic Name Dose Route Start Last Admin Trade Name Freq PRN Reason Stop Dose Admin Acetaminophen 650 mg 08/08/25 21:11 Acetaminophen 325 Mg Tablet PO 09/07/25 20:58 On Hold: 08/10/25 12:16 Q6H PRN Comment: IV APAP ORDER PLACED Fever >100.4 Heparin Sodium (Porcine) 5,000 unit 08/08/25 21:00 08/10/25 09:51 Heparin Sod Inj 5000 Unit/Ml Vial SC 08/22/25 20:59 5,000 unit BID SHAWNA Administration Piperacillin Sod/Tazobactam 100 mls @ 25 mls/hr 08/09/25 14:00 08/10/25 05:13 Sod 4.5 gm/ Sodium Chloride IV 08/16/25 13:59 25 mls/hr Q8HR SHAWNA Administration Protocol Vancomycin/Sodium Chloride 100 mls @ 120 mls/hr 08/09/25 22:00 08/10/25 10:08 Vancomycin/Ns 500 Mg Ivpb IV 08/16/25 21:59 120 mls/hr Q12H SHAWNA Administration Micafungin Sodium 100 mg/ 100 mls @ 100 mls/hr 08/09/25 10:30 08/10/25 10:07 Sodium Chloride IV 08/24/25 10:29 100 mls/hr QDAY SHAWNA Administration Potassium Chloride 40 meq/ 1,020 mls @ 75 mls/hr 08/10/25 08:46 08/10/25 09:48 Dextrose IV 08/10/25 22:21 75 mls/hr .[id number] SHAWNA Administration Potassium Phosphate 15 mmol in 250 mls @ 62.5 mls/hr 08/10/25 08:46 08/10/25 10:02 Pot Phos 15 Mmol In Ns 250 Ml IV 08/10/25 16:45 62.5 mls/hr Q4H SHAWNA Administration Acetaminophen 1,000 mg in 100 mls @ 250 mls/hr 08/10/25 12:13 08/10/25 12:36 Ofirmev Inj IV 08/11/25 06:23 250 mls/hr Q6HR PRN Administration pain or fever Morphine Sulfate 1 mg 08/09/25 10:24 08/10/25 09:44 Morphine Sulf Inj 4 Mg/Ml Vial IVP 08/14/25 11:59 1 mg On Hold: 08/10/25 12:16 Q2HR PRN Administration Comment: IV APAP ORDER PLACED pain 4-10 Ondansetron HCl 4 mg 08/08/25 20:59 Ondansetron Inj 2 Mg/Ml Inj 2 Ml IVP 09/07/25 20:58 Q6H PRN NAUSEA OR VOMITING Protocol Pharmacy Consult 1 each 08/09/25 09:00 Vancomycin Pharmacy To Dose 1 Each Each IV 09/08/25 08:59 QDAY PRN PROTOCOL Plan Carla Washington 65F pmhx significant for invasive adenocarcinoma of ascending colon s/p ex lap R hemicolectomy and ilio transverse anastomosis 07/21, prediabetes, anemia presented to [facility] ED on 08/08 with one day of high fevers of 103 deg and vomiting green bilious and one day of burning on urination, admitted for large abdominal abscess, pelvic abscess and UTI. #Abdominal abscess #Pelvic abscess s/p IR drainage 08/10 #Invasive adenocarcinoma of ascending colon s/p ex lap R hemicolectomy and ilio transverse anastomosis 07/21 Presented with 1 day of high fevers of 103 degrees and 3 episodes of bilious green vomiting. Patient admitted recently from 07/18- 08/05 for abdominal pain, found to have invasive adenocarcinoma s/p ex lap, given TPN through central line at the time. Patient's hospital course at that time was prolonged by E. coli bacteremia and Enterococcus and Pseudomonas UTI, treated w abx. On current admission, febrile temperature 103.9, tachycardic 140, tachypneic 25. WBC 13.7, Pro-Gonzalez elevated 1.7. NG tube placed. CXR bibasilar PNA per read unchanged from previous admission. s/p 3L of fluid in ED 08/08 CTAP; large abscess and soft tissue abdominal wall 16 x 8 x 4.5 cm, prominent colonic and small bowel ileus, suspicious for 8 x 8 cm pelvic abscess. Flagyl (08/08), Cipro (08/08), s/p albumin 50 g (08/09) Plan: - Zosyn (08/08- ),Vanc (08/09- ), Micafungin (08/09- - IR CT guided drainage of abdominal abscess today - Morphine 1 mg q2h prn for pain - F/u BCx #Colonic and small bowel ileus Patient reports daily formed nonbloody bowel movements as well as ability to pass gas. Vomiting x3 day prior to admission CTAP findings as above. Plan: - NG tube for decompression - Plan to advance diet once NG tube suctioned material decreases #Hypernatremia #Hypokalemia On admission K 2.7, adequately repleted. On 08/10, Na 148 and K 2.9. Likely 2/2 NG suctioning. Plan: - D5W 75 cc/hr with KCL 40 mEq additive - Replete and recheck as necessary #UTI Reports 1 day of burning on urination. UA 1+ protein, trace blood, +LE, RBC 4, WBC 30. Plan: - Abx as above - F/u UCx #Sinus tachycardia Initial EKG sinus tachycardia with short IA interval rate 135, QTc 496. Likely 2/2 pain and abscess. Plan: - Med tele for monitoring - Abx as above #Normocytic anemia, stable Hgb admission 10.9 and 9.7 s/p 3L fluids. Iron panel previous missions showed low iron 5, TIBC 135, iron saturation 3, ferritin 135. Likely secondary to chronic disease of adenocarcinoma. Denies melena, hematochezia or hematemasis Plan: - CTM CBC Hospital management: Lines: PIV Diet: NPO Bowel: not indicated GI prophylaxis: not indicated DVT prophylaxis: heparin q12 Disposition: med tele, IR drainage abscess CODE STATUS: FULL CODE Plan of care discussed with attending Dr. Maier, and PGY-3 Dr. Ramirez. Kim Hanks DO PGY-1 Internal Medicine Attending Provider Attestation/Addendum Connie, Melody Maier DO, attest that I was physically present for the [place] portions of the service and evaluated the patient with the resident and I reviewed and discussed the case with the resident and agree with the resident's findings and plans of care as documented above Patient seen and evaluated this AM. Patient states she is feeling improved today. No acute events overnight. Case discussed with surgeon, plan for CT guided drainage of right abdominal abscess today. Will f/u with fluid cultures. Continue wtih IV abx and antifungal until cultures finalize. Will remove NG tube at this time and advance diet as tolerated.
[2025-08-10] MEDS: fentaNYL CIT INJ 50 mCg/ML AMP 2ML 100 MCG IVP (15:22)
[2025-08-10] MEDS: LIDOCAINE INJ PF 1% 30 ML VIAL 13 ML INFL (15:24)
--- NOTE | 2025-08-10 15:31 | PC.SS ---
Patient was recently discharged to [facility] on the and returned. Admitted for abdominal pelvic abscess. SS contacted patient's son, Dionisio, to discuss patient history. Dionisio states he would prefer patient to return to [facility]. He states he was told patient had a bed hold up to 7 days. Notes indicate that ng tube to be dc'd. I.v. antibiotics. Son will remain alt medical decision maker. Alt medical decision maker: Dionisio Ho,
--- NOTE | 2025-08-10 15:57 | PC.NURSE ---
1557 patient is awake, alert, breathing unlabored, s/p abdomen drainage tube placement x2 in CT department, patient transferred back to room 372 with tele box, report given to Brittani KNIGHT. Patient already has 1 drain placed yesterday which brings total of 3 drainage catheters present. Pt has NG tube to left nare clamped at this time for procedure and IVx3.
--- NOTE | 2025-08-10 16:06 | PC.PT ---
PT approached patient at 15:52 but patient was gone to her I/D procedure per RN. Patient was not in the room due to the procedure. Will re-attempt PT eval at another time when patient is not having a procedure done. RN made aware.
--- NOTE | 2025-08-10 16:13 | XR_ITS ---
Examination: CT guided percutaneous placement abscess drainage catheter right anterior abdominal wall abscess CT abdomen without intravenous contrast Date and time of procedure: August 02, 2025, 1512 hours Informed consent provided. A timeout was completed verifying correct patient, procedure, site and positioning. Indications: Abscess right anterior abdominal wall. Technique: Axial 3 mm sections were obtained for localization of the lung abnormality. Appropriate area is marked. The patient's site was prepped and draped in sterile fashion Maximal sterile barrier technique utilized, including hand hygiene Local anesthesia was obtained with 1% lidocaine. Low dose protocols were performed. One or more of the following dose reduction techniques were used; automated exposure control, adjustment of the mA and/or KV according to patient size, use of iterative reconstruction technique. Utilizing CT fluoroscopic guidance 5 Belarusian catheter placed in the large air-containing abscess in the right lateral anterior abdominal wall 0.35 eyGuide placed through the catheter followed by dilators and an 8 Belarusian pigtail abscess drainage catheter in proper position Purulent material aspirated for culture and sensitivity Patient appears in stable condition during this procedure. At completion of the procedure, the patient is in satisfactory condition. Estimated blood loss 0 cc Complete culture and sensitivity report to follow. Impression: Successful CT-guided percutaneous placement abscess drainage catheter right anterior abdominal wall abscess
[2025-08-10] MEDS: MORPHINE SULF INJ 4 MG/ML VIAL 3 MG IVP (18:03)
--- NOTE | 2025-08-10 19:22 | PC.NURSE ---
Drainage from accordion drains: Left middle abdomen- 5ml Lower medial abdomen- 65ml Right abdomen- 15ml 200ml out from NGT
[2025-08-10 20:06] LABS: Albumin, Serum 2.9 gm/dL (3.4-4.8); Anion Gap 15 (7-16); BUN/Creatinine Ratio 11 Ratio (12-20); Blood Urea Nitrogen 9 mg/dL (9-23); Calcium 7.9 mg/dL (8.3-10.6); Calcium (Corrected) 8.8 mg/dL (8.5-10.1); Carbon Dioxide 19.7 mMol/L (20.0-31.0); Chloride 113 mMol/L (98-107); Creatinine (Component) 0.8 mg/dL (0.6-1.3); Estimated Creatinine Clearance 48.3 mL/min (>60); Glucose 131 mg/dL (74-106); Osmolality,Calculated 294 (275-295); Phosphorous 4.0 mg/dL (2.4-5.1); Potassium 3.4 mMol/L (3.4-5.1); Sodium 148 mMol/L (136-145); eGFR > 60 See Note
[2025-08-10 21:14] LABS: Vancomycin,Trough 16.5 mcg/mL (5.0-10.0)
[2025-08-11] VITALS (19 sets, daily range): BP systolic 116–150; BP diastolic 76–95; PULSE 93–115; RESP 14–97; TEMP 36.4–36.9; O2SAT 94–99
[2025-08-11] MEDS: PIPER/TAZO INJ 4.5 GM in SODIUM CHLORIDE 0.9% (POP) 100 ML IV ×2 (05:36→22:38)
[2025-08-11 05:39] LABS: Basophils # (Auto) 0.2 Thou/mm3 (0.0-0.2); Basophils % (Auto) 1 % (0-2.5); Eosinophils # (Auto) 0.2 Thou/mm3 (0.0-0.5); Eosinophils % (Auto) 2 % (0-10); Hematocrit 27.3 % (36.0-46.0); Hemoglobin 8.9 g/dL (12.0-16.0); Immature Granulocytes Auto 0.81 Thou/mm3 (0.00-0.00); Lymphocytes # (Auto) 1.2 Thou/mm3 (1.0-4.8); Lymphocytes % (Auto) 9 % (10-50); Mean Corpuscular HGB Conc 32.6 g/dl (31.0-37.0); Mean Corpuscular Hemoglobin 27.8 pg (25.0-35.0); Mean Corpuscular Volume 85 fL (80-100); Monocytes # (Auto) 1.1 Thou/mm3 (0.0-0.8); Monocytes % (Auto) 8 % (0-12); Neutrophils # (Auto) 10.3 Thou/mm3 (1.8-7.7); Neutrophils % (Auto) 75 % (37-80); Nucleated Red Blood Cell # 0.00 Thou/mm3 (0.00-0.00); Nucleated Red Blood Cell % 0 /100 WBC (0); Platelet Count 424 Thou/mm3 (140-440); RDW Standard Deviation 49.1 fL (36.4-46.3); Red Blood Count 3.20 Miln/mm3 (4.00-5.20); White Blood Count 13.7 Thou/mm3 (3.6-11.0)
[2025-08-11 06:35] LABS: Alanine Aminotransferase < 7 U/L (10-49); Albumin, Serum 3.0 gm/dL (3.4-4.8); Albumin/Globulin Ratio 1.1 (1.2-2.2); Alkaline Phosphatase 121 U/L (46-116); Anion Gap 15 (7-16); Aspartate Amino Transferase 10 U/L (0-34); BUN/Creatinine Ratio 9 Ratio (12-20); Bilirubin,Total 0.7 mg/dL (0.3-1.2); Blood Urea Nitrogen 8 mg/dL (9-23); Calcium 8.3 mg/dL (8.3-10.6); Calcium (Corrected) 9.1 mg/dL (8.5-10.1); Carbon Dioxide 19.8 mMol/L (20.0-31.0); Chloride 115 mMol/L (98-107); Creatinine (Component) 0.9 mg/dL (0.6-1.3); Estimated Creatinine Clearance 43.0 mL/min (>60); Globulin 2.8 gm/dL (2.3-3.5); Glucose 120 mg/dL (74-106); Magnesium 1.6 mg/dL (1.6-2.6); Osmolality,Calculated 297 (275-295); Phosphorous 2.4 mg/dL (2.4-5.1); Potassium 3.0 mMol/L (3.4-5.1); Sodium 150 mMol/L (136-145); Total Protein 5.8 gm/dL (5.7-8.2); eGFR > 60 See Note
--- NOTE | 2025-08-11 08:25 | CHAP ---
Patient did not speak Romansh. She was glad for prayer. As I finished a family member came in and I spoke briefly with her.
[2025-08-11] MEDS: MICAFUNGIN SODIUM INJ 100 MG in SODIUM CHLORIDE 0.9% 100 ML IV (08:54)
[2025-08-11] MEDS: Magnesium Sulfate 4 GM Ivpb 4 GM/50 ML BAG IV (08:54)
[2025-08-11] MEDS: POT PHOS 15 mMol in NS 250 ML 15 MMOL/250 ML BAG 62.5 MMOL IV ×2 (08:54→20:24)
--- NOTE | 2025-08-11 09:24 | ESPR_ITS ---
Documentation for date of: 08/11/25 Subjective Subjective Brief History: Patient was readmitted with fever and chills from the skilled nursing after discharge few days ago Narrative: I was called last night by the nurses describing some bowel contents coming through the incision in the right flank. Patient does not have any pain. I came to see her this morning and the incision seem to be indeed draining bowel c ontinence. Exam Vital Signs Temp Pulse Resp BP Pulse Ox O2 Del Method O2 Flow Rate 97.5 F 93 23 H 147/87 H 96 Room Air 5 08/11/25 08:00 08/11/25 08:00 08/11/25 08:00 08/11/25 08:00 08/11/25 08:00 08/11/25 08:00 08/11/25 04:00 Her vital signs are normal. Patient has had a drainage done by the radiologist Results Results: Laboratory Laboratory Narrative: Laboratory results are within normal limits Assessment & Plan Assessment Additional comments: Impression: Leakage of the bowel possibly due to anastomosis disruption Plan Plan: Patient will require exploration and possibly diverting ileostomy or colostomy. This was explained to the patient's family and they are agreeable
[2025-08-11] MEDS: MORPHINE SULF INJ 4 MG/ML VIAL 3 MG IVP ×2 (09:28→23:01)
--- NOTE | 2025-08-11 09:55 | PC.NURSE ---
notified Dr Canchola that Dr. Redman will not take pt for ir guided drainage
[2025-08-11] MEDS: POTASSIUM CHLORIDE 10% 20 MEQ/15 ML UDC 40 MEQ GT (09:57)
[2025-08-11] MEDS: VANCOMYCIN/NS 500 MG IVPB 100 ML 120 MG IV ×2 (09:58→22:37)
--- NOTE | 2025-08-11 10:34 | PC.NURSE ---
pt left for surgery
--- NOTE | 2025-08-11 11:29 | PC.PT ---
Per EUGENE So at 9:49, patient is leaking feces from her abdominal wounds and is being prepped for surgery ROSALIA. Patient is not a candidate for PT today. Will re-attempt PT eval at another time.
[2025-08-11 12:57] LABS: Albumin, Serum 2.5 gm/dL (3.4-4.8); Anion Gap 14 (7-16); BUN/Creatinine Ratio 13 Ratio (12-20); Blood Urea Nitrogen 10 mg/dL (9-23); Calcium 7.7 mg/dL (8.3-10.6); Calcium (Corrected) 8.9 mg/dL (8.5-10.1); Carbon Dioxide 19.8 mMol/L (20.0-31.0); Chloride 117 mMol/L (98-107); Creatinine (Component) 0.8 mg/dL (0.6-1.3); Estimated Creatinine Clearance 48.3 mL/min (>60); Glucose 146 mg/dL (74-106); Osmolality,Calculated 301 (275-295); Phosphorous 3.1 mg/dL (2.4-5.1); Potassium 4.5 mMol/L (3.4-5.1); Sodium 151 mMol/L (136-145); eGFR > 60 See Note
--- NOTE | 2025-08-11 13:20 | PD.RESPRO ---
Documentation for date of: 08/11/25 Senior resident attestation: Patient evaluated and examined at the bedside, plan of care discussed with rest of the team including my attending physician, except as noted. Patient is a 65-year-old female past medical history of invasive carcinoma status post ex lap and right hemicolectomy, and renal status post anastomosis, on 07/21/2025, hospital course was complicated by E. coli bacteremia, Pseudomonas and vancomycin resistant Enterococcus UTI infection, completed antibiotics, patient was discharged home. After tolerating p.o. diet. No patient presented with acute onset of fever shaking chills, and swelling in the abdomen, found to have CT abdominal pelvis was done which found pelvic abscess and right abdominal wall abscess, general surgeon Dr. Suggs was consulted to evaluate the patient, recommended CT-guided IR abscess drainage, pelvic abscess was drained in 08/09/2025, patient has another large abscess in right abdominal wall, containing air, pending IR guided drainage. Memo were removed with Dr. Suggs but no drainage noted yet. Patient continues to stay n.p.o., Currently on IV antibiotics, initiated micafungin due to concern for candidal infection following peritonitis, pending blood and wound cultures. Patient was taken to the OR today, for ex lap and resection of small bowel and takedown of anastomosis and diverting ileostomy, multiple intra-abdominal abscesses and leakage of small bowel contents, noted multiple lacerations small bowel in the distal portion of the massive contamination of abdominal cavity the small bowel resected mostly in the region and the anastomosis was taken down. Ileostomy was made. Estimated blood loss 500 mL patient received 2 units of PRBC and 1 dose of TXA and calcium gluconate. The skin and the subcu tissue was left open because of massive contamination of small bowel contents. The patient will require TPN, central line placement ordered for tomorrow. # Quresh PGY3 Subjective Subjective Interval history: Overnight, nursing noted fecal matter coming out of incision site of previous surgery, Dr. Suggs was consulted and notified. Patient seen examined at bedside. Labs and vitals reviewed. SBP 1 120-140, heart rate low 100s, RR low 20s. WBC stable elevated 13.7, hemoglobin 8.9, sodium 150, potassium 3.0 repleted with 40 mEq K-Phos and 40 mEq KCl through NG tube per Dr. Suggs. Chloride 115, bicarb 19.8, blood cultures NGTD. Patient was noted to have feculent matter draining through incision site, and Dr. Suggs plans surgery today for exploration possibly diverting ileostomy or colostomy. Will likely need TPN and potential central line placed to IR. Continue broad-spectrum antibiotics. Continue D5W at 85 cc/hr for hypernatremia. Follow-up repeat p.m. renal panel. Exam Vital Signs Temp Pulse Resp BP Pulse Ox O2 Del Method O2 Flow Rate 97.5 F 93 23 H 147/87 H 96 Room Air 5 08/11/25 08:00 08/11/25 08:00 08/11/25 08:00 08/11/25 08:00 08/11/25 08:00 08/11/25 08:00 08/11/25 04:00 Narrative Exam GENERAL: AOx3, no acute distress HEENT: mucous membranes moist, bilateral sclera anicteric CARDIOVASCULAR: regular rate and rhythm, S1/S2 present, no murmurs appreciated PULMONARY: clear to auscultation bilaterally, no rales/rhonchi/wheezes ABDOMINAL: soft, no rebound/guarding, bowel sounds present, left abdominal incision site draining fecal matter, distended at site, 2 abdominal wound drain for abscesses intact draining brown minimal fluid EXTREMITIES: no peripheral edema SKIN: warm and dry, intact, no rashes NEURO: CN II-XII grossly intact, no focal deficits, alert, following commands Objective Labs 08/12/25 05:18 08/12/25 05:18 Labs: Laboratory Results - last 24 hr 08/10/25 08/10/25 08/11/25 19:28 20:36 04:45 WBC 13.7 H RBC 3.20 L Hgb 8.9 L Hct 27.3 L MCV 85 MCH 27.8 MCHC 32.6 RDW Std Deviation 49.1 H Plt Count 424 Neut % (Auto) 75 Lymph % (Auto) 9 L [place] % (Auto) 8 Eos % (Auto) 2 Baso % (Auto) 1 Neut # (Auto) 10.3 H Lymph # (Auto) 1.2 [place] # (Auto) 1.1 H Eos # (Auto) 0.2 Baso # (Auto) 0.2 Immature Gran # (Auto) 0.81 H Absolute Nucleated RBC 0.00 Immature Gran % 6 H Nucleated RBC % 0 Sodium 148 H 150 H Potassium 3.4 3.0 L Chloride 113 H 115 H Carbon Dioxide 19.7 L 19.8 L Anion Gap 15 15 BUN 9 8 L Creatinine 0.8 0.9 Estim Creat Clear Calc 48.3 L 43.0 L eGFR > 60 > 60 BUN/Creatinine Ratio 11 L 9 L Glucose 131 H D 120 H Calculated Osmolality 294 297 H Calcium 7.9 L 8.3 Corrected Calcium 8.8 9.1 Phosphorus 4.0 2.4 Magnesium 1.6 Total Bilirubin 0.7 AST 10 ALT < 7 L Alkaline Phosphatase 121 H Total Protein 5.8 Albumin 2.9 L 3.0 L Globulin 2.8 Albumin/Globulin Ratio 1.1 L Vancomycin Trough 16.5 H 08/11/25 12:15 WBC RBC Hgb Hct MCV MCH MCHC RDW Std Deviation Plt Count Neut % (Auto) Lymph % (Auto) [place] % (Auto) Eos % (Auto) Baso % (Auto) Neut # (Auto) Lymph # (Auto) [place] # (Auto) Eos # (Auto) Baso # (Auto) Immature Gran # (Auto) Absolute Nucleated RBC Immature Gran % Nucleated RBC % Sodium 151 H Potassium 4.5 D Chloride 117 H Carbon Dioxide 19.8 L Anion Gap 14 BUN 10 Creatinine 0.8 Estim Creat Clear Calc 48.3 L eGFR > 60 BUN/Creatinine Ratio 13 Glucose 146 H Calculated Osmolality 301 H Calcium 7.7 L Corrected Calcium 8.9 Phosphorus 3.1 Magnesium Total Bilirubin AST ALT Alkaline Phosphatase Total Protein Albumin 2.5 L D Globulin Albumin/Globulin Ratio Vancomycin Trough Quality Measures Quality Measures VTE prophylaxis Advance care planning discussed with:: patient Assessment & Plan Assessment Current Active Medications: Generic Name Dose Route Start Last Admin Trade Name Freq PRN Reason Stop Dose Admin Acetaminophen 650 mg 08/08/25 21:11 Acetaminophen 325 Mg Tablet PO 09/07/25 20:58 On Hold: 08/10/25 12:16 Q6H PRN Comment: IV APAP ORDER PLACED Fever >100.4 Heparin Sodium (Porcine) 5,000 unit 08/08/25 21:00 08/11/25 09:19 Heparin Sod Inj 5000 Unit/Ml Vial SC 08/22/25 20:59 Not Given BID SHAWNA Piperacillin Sod/Tazobactam 100 mls @ 25 mls/hr 08/09/25 14:00 08/11/25 05:36 Sod 4.5 gm/ Sodium Chloride IV 08/16/25 13:59 25 mls/hr Q8HR SHAWNA Administration Protocol Vancomycin/Sodium Chloride 100 mls @ 120 mls/hr 08/09/25 22:00 08/11/25 09:58 Vancomycin/Ns 500 Mg Ivpb IV 08/16/25 21:59 120 mls/hr Q12H SHAWNA Administration Micafungin Sodium 100 mg/ 100 mls @ 100 mls/hr 08/09/25 10:30 08/11/25 08:54 Sodium Chloride IV 08/24/25 10:29 100 mls/hr QDAY SHAWNA Administration Potassium Phosphate 15 mmol in 250 mls @ 62.5 mls/hr 08/11/25 07:58 08/11/25 08:54 Pot Phos 15 Mmol In Ns 250 Ml IV 08/11/25 15:57 62.5 mls/hr Q4H SHAWNA Administration Dextrose 1,000 mls @ 85 mls/hr 08/11/25 08:29 D5w IV 08/11/25 20:14 .[id number] SHAWNA Morphine Sulfate 1 mg 08/09/25 10:24 08/10/25 09:44 Morphine Sulf Inj 4 Mg/Ml Vial IVP 08/14/25 11:59 1 mg On Hold: 08/10/25 12:16 Q2HR PRN Administration Comment: IV APAP ORDER PLACED pain 4-10 Morphine Sulfate 3 mg 08/10/25 17:10 08/11/25 09:28 Morphine Sulf Inj 4 Mg/Ml Vial IVP 08/15/25 17:09 3 mg Q4HR PRN Administration PAIN SCALE 4-10(Mod-Sev Ondansetron HCl 4 mg 08/08/25 20:59 Ondansetron Inj 2 Mg/Ml Inj 2 Ml IVP 09/07/25 20:58 Q6H PRN NAUSEA OR VOMITING Protocol Pharmacy Consult 1 each 08/09/25 09:00 Vancomycin Pharmacy To Dose 1 Each Each IV 09/08/25 08:59 QDAY PRN PROTOCOL Plan a[place] 65F pmhx significant for invasive adenocarcinoma of ascending colon s/p ex lap R hemicolectomy and ilio transverse anastomosis 07/21, prediabetes, anemia presented to [facility] ED on 08/08 with one day of high fevers of 103 deg and vomiting green bilious and one day of burning on urination, admitted for large abdominal abscess, pelvic abscess and UTI. #Bowel perforation/leakage from incision site of #Invasive adenocarcinoma of ascending colon s/p ex lap R hemicolectomy and ilio transverse anastomosis 07/21 #Abdominal abscess s/p IR drainage 08/10 #Pelvic abscess s/p IR drainage 08/09 Presented with 1 day of high fevers of 103 degrees and 3 episodes of bilious green vomiting. Patient admitted recently from 07/18- 08/05 for abdominal pain, found to have invasive adenocarcinoma s/p ex lap, given TPN through central line at the time. Patient's hospital course at that time was prolonged by E. coli bacteremia and Enterococcus and Pseudomonas UTI, treated w abx. On current admission, febrile temperature 103.9, tachycardic 140, tachypneic 25. WBC 13.7, Pro-Gonzalez elevated 1.7. NG tube placed. CXR bibasilar PNA per read unchanged from previous admission. s/p 3L of fluid in ED. BCx [id number] Overnight on 08/10 to 08/11, primary team notified regarding stool leaking from incision site of previous surgery on 07/21, per Dr. Suggs, patient will be taken back to the OR will require exploration and possibly diverting ileostomy or colostomy. 08/08 CTAP; large abscess and soft tissue abdominal wall 16 x 8 x 4.5 cm, prominent colonic and small bowel ileus, suspicious for 8 x 8 cm pelvic abscess. Flagyl (08/08), Cipro (08/08), s/p albumin 50 g (08/09) Plan: - Zosyn (08/08- ),Vanc (08/09- ), Micafungin (08/09- - Surgery consulted, recs appreciated: Surgery today, will likely need TPN and potential central line placement by IR - Morphine 3 mg q4h prn for pain #Colonic and small bowel ileus Patient reports daily formed nonbloody bowel movements as well as ability to pass gas. Vomiting x3 day prior to admission CTAP findings as above. Plan: - NG tube for decompression - Plan to advance diet once NG tube suctioned material decreases #Hypernatremia #Hypokalemia On admission K 2.7, adequately repleted. On 08/10, Na 148 and K 2.9. Likely 2/2 NG suctioning. Plan: - D5W 85 cc/hr with KCL 40 mEq additive - Replete and recheck as necessary #UTI Reports 1 day of burning on urination. UA 1+ protein, trace blood, +LE, RBC 4, WBC 30. Plan: - Abx as above - F/u UCx #Sinus tachycardia Initial EKG sinus tachycardia with short MS interval rate 135, QTc 496. Likely 2/2 pain and abscess. Plan: - Med tele for monitoring - Abx as above #Normocytic anemia, stable Hgb admission 10.9 and 9.7 s/p 3L fluids. Iron panel previous missions showed low iron 5, TIBC 135, iron saturation 3, ferritin 135. Likely secondary to chronic disease of adenocarcinoma. Denies melena, hematochezia or hematemasis Plan: - CTM CBC Hospital management: Lines: PIV Diet: NPO Bowel: not indicated GI prophylaxis: not indicated DVT prophylaxis: held iso surgery Disposition: med tele, surgery CODE STATUS: FULL CODE Plan of care discussed with attending Dr. Maier, and PGY-2 Dr. Alicia. Kim Hanks DO PGY-1 Internal Medicine Attending Provider Attestation/Addendum I, Melody Maier DO, attest that I was physically present for the [place] portions of the service and evaluated the patient with the resident and I reviewed and discussed the case with the resident and agree with the resident's findings and plans of care as documented above Patient seen and evaluated this afternoon. Patient had been noted to have fecal matter leaking from wound this AM. She was subsequently taken to the OR. Patient underwent exlap, resection of small bowel, take down of anastamosis and diverting colostomy due to multiple lacerations of the small bowel with massive contamination of the abdominal cavity. Patient remains sedated at this time. Dressing is CDI. Case discussed with surgeon and recommends starting patient on TPN tomorrow if she remains stable. Patient is noted to have sandpaper like lesions on face. Son at bedside and states she had similar lesions on her arm previously. However, patient had not complained of any itching. Will continue to follow cultures and continue with IV abx and antifungal at this time.
[2025-08-11 13:55] LABS: Allen Test Not Performed; Base Excess -9 (-3-3); HCO3 18 mEq/L (20-26); Inspired Oxygen, FIO2 47 %; O2 Saturation 100 % (91-98); PCO2 39 mmHg (32.0-48.0); PO2 185 mmHg (83-108); Puncture Site Left Radial; pH, Arterial 7.27 (7.35-7.45)
--- NOTE | 2025-08-11 14:13 | SUR.PHASEI ---
1413 Patient arrived to recovery resting comfortably in bed, on oxygen 8L via oxy mask with an oral airway in place, breathing unlabored, vital signs stable, dressing intact to abdomen; jose l 1/2 to half of incision, the other half open with wet to dry fluffs, medipore tape, no bleeding noted, JARAD drain 15F to right lower quadrant; serosanguineous fluid present to drain, NG tube in place 50 at left nares, clamped, 16F perez in place with leg secure; draining to gravity, ileostomy present to left upper quadrant; intact and secure with manoj 70mm 2 3/4in pouch, stoma appears beefy red, report received from Thuan LOPEZ/Dr. Phan and Rukhsana KNIGHT
--- NOTE | 2025-08-11 15:00 | ESOP_ITS ---
Date of Procedure 08/11/25 Pre Op Diagnosis Multiple intra-abdominal abscess with leakage of small bowel contents Post Op Diagnosis Same with multiple laceration of the small bowel due to perforation Procedure Explored laparotomy and resection of the small bowel and takedown of the anastomosis and diverting ileostomy Findings Patient was Found to have multiple lacerations of the small bowel and the distal portion with a massive contamination of the abdominal cavity. The small bowel was resected mostly the ileal region and the anastomosis was takedown Procedure Description Or the patient was brought to the operating room endotracheal anesthesia was given. Abdomen was prepped with ChloraPrep solution and draped in a sterile manner. Timeout was performed. Midline transverse incision was opened and there was large amounts of small bowel contents leaking through it. Exploration revealed the patient has had a multiple small bowel laceration because of which is not clear. It was extremely difficult to explore the wound because of extensive adhesions between the small bowel and the anterior abdominal wall. I requested another surgeon to help me and with the help of both the surgeons I was able to continue the dissection. The ilio colic anastomosis seem to be intact however the bowel just proximal to the anastomosis and the small bowel was torn. This may be because of exploration or spontaneous tear. But the tear of the small bowel occurred away from the anastomosis. After resecting the small bowel which involved most of the ileum I checked the proximal small bowel and confirmed that there is no other injury. Jejunal ileal junction was chosen and I was able to bring it up as an ileostomy in the left side of the abdomen. This was created in the standard way by excising a small portion of the skin and making a cruciate incision on the anterior rectus sheath. Then the loop of ileum was pulled out and it was attached to the fascia with 4 sutures of 2-0 Vicryl. Then wound was extensively irrigated and all the small bowel contents were washed away. The fascia was dehisced badly and could not clearly identify it because of the infection. I left #15 round Dash-Shaffer and then closed the both anterior and posterior rectus sheath and wound layer. Then wound was irrigated and a small portion of the incision extending over the left side of the abdomen was closed with jose l and most of the remaining wound was left open for secondary closure. This was treated with saline solution and packed with wet-to-dry gauze. The skin in the subcutaneous tissue was left open because of the massive contamination of the small bowel contents. Patient received 2 units of blood and 1 dose of TXA and calcium gluconate. Patient tolerated the procedure well and was returned to recovery room in stable condition. Anesthesia GETA Pathology / specimen Other (Small bowel with staff) IVF Infused 3,000 Estimated Blood Loss 500 Condition Stable Disposition PACU Surgeon Riky Sánchez MD Surgical Staff Operation Date: 08/11/25 10:45 Case Staff Anesthesiologist: Will Garcia Assisting Surgeon: Ceci Canchola Assisting Surgeon: Suzan Aguilar RNmanager multicultural: Estee Gill
--- NOTE | 2025-08-11 16:00 | SUR.PHASEI ---
1600 JARAD drain emptied 40ml serosanguineous fluid noted
--- NOTE | 2025-08-11 16:08 | SUR.PHASEI ---
1602 Report given to Saray KNIGHT, patient meets discharge criteria from recovery, resting comfortably in bed, arouses to verbal command then drifts back to sleep, on oxygen 3L via oxy mask, breathing unlabored, vital signs stable, dressing intact; no bleeding noted, JARAD drain 15F to right lower quadrant; serosanguineous fluid present to drain, NG tube in place 50 at left nares, clamped, 16F perez in place with leg secure; draining to gravity, ileostomy; intact and secure with manoj 70mm 2 3/4in pouch, stoma appears beefy red, denies nausea 1608 Patient transported via bed to room 372 without incident.
--- NOTE | 2025-08-11 16:16 | PC.NURSE ---
pt arrived to floor from pacu
[2025-08-11] MEDS: DEXTROSE 5%-WATER 1,000 ML 85 ML IV (17:55)
[2025-08-11 21:31] LABS: Basophils # (Auto) 0.0 Thou/mm3 (0.0-0.2); Basophils % (Auto) 0 % (0-2.5); Eosinophils # (Auto) 0.0 Thou/mm3 (0.0-0.5); Eosinophils % (Auto) 0 % (0-10); Hematocrit 34.0 % (36.0-46.0); Hemoglobin 11.1 g/dL (12.0-16.0); Immature Granulocytes Auto 3.26 Thou/mm3 (0.00-0.00); Lymphocytes # (Auto) 1.2 Thou/mm3 (1.0-4.8); Lymphocytes % (Auto) 5 % (10-50); Mean Corpuscular HGB Conc 32.6 g/dl (31.0-37.0); Mean Corpuscular Hemoglobin 29.2 pg (25.0-35.0); Mean Corpuscular Volume 90 fL (80-100); Monocytes # (Auto) 0.7 Thou/mm3 (0.0-0.8); Monocytes % (Auto) 3 % (0-12); Neutrophils # (Auto) 18.9 Thou/mm3 (1.8-7.7); Neutrophils % (Auto) 79 % (37-80); Nucleated Red Blood Cell # 0.02 Thou/mm3 (0.00-0.00); Nucleated Red Blood Cell % 0 /100 WBC (0); RDW Standard Deviation 51.4 fL (36.4-46.3); Red Blood Count 3.80 Miln/mm3 (4.00-5.20); White Blood Count 24.0 Thou/mm3 (3.6-11.0)
[2025-08-11 22:33] LABS: Platelet Count 368 Thou/mm3 (140-440)
[2025-08-12] VITALS (10 sets, daily range): BP systolic 133–153; BP diastolic 78–92; PULSE 82–100; RESP 16–19; TEMP 36.3–36.6; O2SAT 94–97; BMI 24.3; BMI 11.0
[2025-08-12] MEDS: MORPHINE SULF INJ 4 MG/ML VIAL 3 MG IVP ×2 (05:52→17:42)
[2025-08-12] MEDS: PIPER/TAZO INJ 4.5 GM in SODIUM CHLORIDE 0.9% (POP) 100 ML IV ×3 (05:53→21:11)
[2025-08-12 05:57] LABS: Basophils # (Auto) 0.0 Thou/mm3 (0.0-0.2); Basophils % (Auto) 0 % (0-2.5); Eosinophils # (Auto) 0.0 Thou/mm3 (0.0-0.5); Eosinophils % (Auto) 0 % (0-10); Hematocrit 32.2 % (36.0-46.0); Hemoglobin 10.8 g/dL (12.0-16.0); Immature Granulocytes Auto 3.12 Thou/mm3 (0.00-0.00); Lymphocytes # (Auto) 1.8 Thou/mm3 (1.0-4.8); Lymphocytes % (Auto) 8 % (10-50); Mean Corpuscular HGB Conc 33.5 g/dl (31.0-37.0); Mean Corpuscular Hemoglobin 29.5 pg (25.0-35.0); Mean Corpuscular Volume 88 fL (80-100); Monocytes # (Auto) 1.2 Thou/mm3 (0.0-0.8); Monocytes % (Auto) 5 % (0-12); Neutrophils # (Auto) 18.1 Thou/mm3 (1.8-7.7); Neutrophils % (Auto) 74 % (37-80); Nucleated Red Blood Cell # 0.02 Thou/mm3 (0.00-0.00); Nucleated Red Blood Cell % 0 /100 WBC (0); Platelet Count 391 Thou/mm3 (140-440); RDW Standard Deviation 51.3 fL (36.4-46.3); Red Blood Count 3.66 Miln/mm3 (4.00-5.20); White Blood Count 24.3 Thou/mm3 (3.6-11.0)
[2025-08-12 06:42] LABS: Alanine Aminotransferase < 7 U/L (10-49); Albumin, Serum 2.7 gm/dL (3.4-4.8); Albumin/Globulin Ratio 1.0 (1.2-2.2); Alkaline Phosphatase 95 U/L (46-116); Anion Gap 13 (7-16); Aspartate Amino Transferase 10 U/L (0-34); BUN/Creatinine Ratio 13 Ratio (12-20); Bilirubin,Total 0.6 mg/dL (0.3-1.2); Blood Urea Nitrogen 10 mg/dL (9-23); Calcium 7.6 mg/dL (8.3-10.6); Calcium (Corrected) 8.6 mg/dL (8.5-10.1); Carbon Dioxide 20.6 mMol/L (20.0-31.0); Chloride 117 mMol/L (98-107); Creatinine (Component) 0.8 mg/dL (0.6-1.3); Estimated Creatinine Clearance 48.3 mL/min (>60); Globulin 2.6 gm/dL (2.3-3.5); Glucose 211 mg/dL (74-106); Magnesium 1.7 mg/dL (1.6-2.6); Osmolality,Calculated 304 (275-295); Phosphorous 3.8 mg/dL (2.4-5.1); Potassium 3.9 mMol/L (3.4-5.1); Sodium 151 mMol/L (136-145); Total Protein 5.3 gm/dL (5.7-8.2); eGFR > 60 See Note
--- NOTE | 2025-08-12 08:00 | XR_ITS ---
Examination: Ultrasound-guided needle placement right brachial vein. Dual-lumen central line placement (PICC line). Fluoroscopy AP chest, portable, single view Exam date and time: August 12, 2025, at 1423 hours INDICATIONS: Postop colon resection and ileostomy need for TPN A timeout was completed verifying correct patient, procedure, site, positioning Informed consent provided Technique: The patient's site was prepped and draped in sterile fashion. Maximum Sterile Barrier Technique used including cap, mask, sterile gown, sterile gloves, and sterile full body drape. If ultrasound technique used: sterile gel and sterile probe covers. Hand Hygiene performed using proper scrub, soap and water, or alcohol-based hand rub. Ultrasound ultrasound right portable apparatus utilized to confirm patency of the right brachial vein, utilizing ultrasonographic guidance 6 S1 21-gauge needle puncture into the right brachial vein Ultrasound images recorded and stored. 5 cc 1% lidocaine administered for local anesthetic. Successful micropuncture with a 21-gauge needle is performed. 0.18 wire guide is then introduced into the SVC under fluoroscopic guidance. Dual-lumen catheter dilator is then introduced, followed by the catheter in the SVC and proper position under fluoroscopic guidance. Successful aspiration of blood and flushing with heparinized saline is then performed in the 2 venous limbs. The catheter sutured in place. Findings: Under fluoroscopy, the tip of the catheter is in good position in the vena cava. Portable chest x-ray, post line placement is ordered. Estimated blood loss 3 cc The patient tolerated the procedure well and was in stable and satisfactory condition at completion of the procedure Impression: Successful ultrasound-guided needle placement right brachial vein Successful placement of dual lumen central line, percutaneous Fluoroscopy 0.1-minute radiation dose 1.07 mGy 1 spot fluoroscopic chest. AP chest completion procedure demonstrates satisfactory position central line. May use central line.
[2025-08-12] MEDS: MICAFUNGIN SODIUM INJ 100 MG in SODIUM CHLORIDE 0.9% 100 ML IV (08:35)
[2025-08-12 08:49] LABS: INR 1.1 (0.9-1.3); Partial Thromboplastin Time 28.1 Seconds (22.0-36.0); Prothrombin Time 11.4 Seconds (9.0-12.2)
[2025-08-12] MEDS: HYDROmorphone INJ 2 MG/ML VIAL 0.5 MG IVP ×3 (09:21→20:18)
[2025-08-12] MEDS: VANCOMYCIN/NS 500 MG IVPB 100 ML 120 MG IV ×2 (09:22→23:27)
--- NOTE | 2025-08-12 09:26 | ESPR_ITS ---
Documentation for date of: 08/12/25 Senior resident attestation: Patient evaluated and examined at the bedside, plan of care discussed with rest of the team including my attending physician, except as noted. Patient is a 65-year-old female past medical history of invasive carcinoma status post ex lap and right hemicolectomy, and renal status post anastomosis, on 07/21/2025, hospital course was complicated by E. coli bacteremia, Pseudomonas and vancomycin resistant Enterococcus UTI infection, completed antibiotics, patient was discharged home. After tolerating p.o. diet. No patient presented with acute onset of fever shaking chills, and swelling in the abdomen, found to have CT abdominal pelvis was done which found pelvic abscess and right abdominal wall abscess, general surgeon Dr. Suggs was consulted to evaluate the patient, recommended CT-guided IR abscess drainage, pelvic abscess was drained in 08/09/2025, patient has another large abscess in right abdominal wall, containing air, pending IR guided drainage.Patient was taken to the OR for ex lap and resection of small bowel and takedown of anastomosis and diverting ileostomy, multiple intra-abdominal abscesses and leakage of small bowel contents, noted multiple lacerations small bowel in the distal portion of the massive contamination of abdominal cavity the small bowel resected mostly in the region and the anastomosis was taken down. Ileostomy was made. The skin and the subcu tissue was left open because of massive contamination of small bowel contents. Surgical gauze packing in place. Noted 75 mL blood-tinged fluid in JARAD drain, dietary consulted, for TPN, PICC line placed. Patient continues to stay n.p.o., Currently on IV antibiotics, initiated micafungin due to concern for candidal infection following peritonitis, pending blood and wound cultures. Quresh PGY3 Subjective Subjective Interval history: No acute overnight events. Patient seen examined at bedside. Postop day 1 ex lap with resection of small bowel takedown of anastomosis and diverting ileostomy. Patient reports 10 of 10 abdominal pain. Ileostomy present draining black fluid and incision site packed with gauze. NG tube in place also draining black fluid. Vitals labs reviewed. SBP 110s to 140s, heart rate 90s, WBC 24.3, hemoglobin 10.8, sodium 151, chloride 117, bicarb improving 20. Wound culture grew GNR, blood culture negative. Plan for PICC line insertion and initiation of TPN today. Continue broad-spectrum antibiotics as well as antifungal. Started D5W at 50 cc an hour for hypernatremia. Exam Vital Signs Temp Pulse Resp BP Pulse Ox O2 Del Method O2 Flow Rate 97.6 F 87 18 144/88 H 97 Room Air 3 08/12/25 08:00 08/12/25 08:00 08/12/25 08:00 08/12/25 08:00 08/12/25 08:00 08/12/25 08:00 08/11/25 17:05 Narrative Exam GENERAL: AOx3, no acute distress HEENT: mucous membranes moist, bilateral sclera anicteric, NG tube in place draining black fluid CARDIOVASCULAR: regular rate and rhythm, S1/S2 present, no murmurs appreciated PULMONARY: clear to auscultation bilaterally, no rales/rhonchi/wheezes ABDOMINAL: soft, no rebound/guarding, bowel sounds present, incision site packed with gauze, one wound drain in place, ileostomy present draining black fluid EXTREMITIES: no peripheral edema SKIN: warm and dry, intact, erythematous non pruitic wheals on forehead NEURO: CN II-XII grossly intact, no focal deficits, alert, following commands Objective Labs 08/12/25 05:18 08/12/25 05:18 Labs: Laboratory Results - last 24 hr 08/11/25 08/11/25 08/11/25 12:15 13:49 19:13 WBC 24.0 H D RBC 3.80 L Hgb 11.1 L D Hct 34.0 L MCV 90 MCH 29.2 MCHC 32.6 RDW Std Deviation 51.4 H Plt Count 368 D Neut % (Auto) 79 Lymph % (Auto) 5 L Marshall % (Auto) 3 Eos % (Auto) 0 Baso % (Auto) 0 Neut # (Auto) 18.9 H Lymph # (Auto) 1.2 Marshall # (Auto) 0.7 Eos # (Auto) 0.0 Baso # (Auto) 0.0 Immature Gran # (Auto) 3.26 H Absolute Nucleated RBC 0.02 H Immature Gran % 14 H Nucleated RBC % 0 PT INR APTT Puncture Site Left Radial ABG pH 7.27 L ABG pCO2 39 ABG pO2 185 H ABG HCO3 18 L ABG O2 Saturation 100 H ABG Base Excess -9 L FiO2 47 Sodium 151 H Potassium 4.5 D Chloride 117 H Carbon Dioxide 19.8 L Anion Gap 14 BUN 10 Creatinine 0.8 Estim Creat Clear Calc 48.3 L eGFR > 60 BUN/Creatinine Ratio 13 Glucose 146 H Calculated Osmolality 301 H Calcium 7.7 L Corrected Calcium 8.9 Phosphorus 3.1 Magnesium Total Bilirubin AST ALT Alkaline Phosphatase Total Protein Albumin 2.5 L D Globulin Albumin/Globulin Ratio Blood Type O Positive Antibody Screen NEGATIVE Crossmatch See Detail Blood Bank Wristband ID Yes 08/12/25 05:18 WBC 24.3 H RBC 3.66 L Hgb 10.8 L Hct 32.2 L MCV 88 MCH 29.5 MCHC 33.5 RDW Std Deviation 51.3 H Plt Count 391 Neut % (Auto) 74 Lymph % (Auto) 8 L Marshall % (Auto) 5 Eos % (Auto) 0 Baso % (Auto) 0 Neut # (Auto) 18.1 H Lymph # (Auto) 1.8 Marshall # (Auto) 1.2 H Eos # (Auto) 0.0 Baso # (Auto) 0.0 Immature Gran # (Auto) 3.12 H Absolute Nucleated RBC 0.02 H Immature Gran % 13 H Nucleated RBC % 0 PT 11.4 INR 1.1 APTT 28.1 Puncture Site ABG pH ABG pCO2 ABG pO2 ABG HCO3 ABG O2 Saturation ABG Base Excess FiO2 Sodium 151 H Potassium 3.9 D Chloride 117 H Carbon Dioxide 20.6 Anion Gap 13 BUN 10 Creatinine 0.8 Estim Creat Clear Calc 48.3 L eGFR > 60 BUN/Creatinine Ratio 13 Glucose 211 H D Calculated Osmolality 304 H Calcium 7.6 L Corrected Calcium 8.6 Phosphorus 3.8 Magnesium 1.7 Total Bilirubin 0.6 AST 10 ALT < 7 L Alkaline Phosphatase 95 D Total Protein 5.3 L Albumin 2.7 L Globulin 2.6 Albumin/Globulin Ratio 1.0 L Blood Type Antibody Screen Crossmatch Blood Bank Wristband ID ABG Interpretation ABG results: 08/11/25 13:49 ABG pH 7.27 L ABG pCO2 39 ABG pO2 185 H ABG HCO3 18 L ABG O2 Saturation 100 H ABG Base Excess -9 L Quality Measures Quality Measures VTE prophylaxis Advance care planning discussed with:: patient Assessment & Plan Assessment Current Active Medications: Generic Name Dose Route Start Last Admin Trade Name Freq PRN Reason Stop Dose Admin Heparin Sodium (Porcine) 5,000 unit 08/08/25 21:00 08/11/25 09:19 Heparin Sod Inj 5000 Unit/Ml Vial SC 08/22/25 20:59 Not Given On Hold: 08/11/25 16:24 BID SHAWNA Hydromorphone HCl 0.5 mg 08/12/25 08:59 08/12/25 09:21 Hydromorphone Inj 2 Mg/Ml Vial IVP 08/17/25 08:58 0.5 mg Q4HR PRN Administration Pain 7-10 Piperacillin Sod/Tazobactam 100 mls @ 25 mls/hr 08/09/25 14:00 08/12/25 05:53 Sod 4.5 gm/ Sodium Chloride IV 08/16/25 13:59 25 mls/hr Q8HR SHAWNA Administration Protocol Vancomycin/Sodium Chloride 100 mls @ 120 mls/hr 08/09/25 22:00 08/12/25 09:22 Vancomycin/Ns 500 Mg Ivpb IV 08/16/25 21:59 120 mls/hr Q12H SHAWNA Administration Protocol Micafungin Sodium 100 mg/ 100 mls @ 100 mls/hr 08/09/25 10:30 08/12/25 08:35 Sodium Chloride IV 08/24/25 10:29 100 mls/hr QDAY SHAWNA Administration Morphine Sulfate 3 mg 08/12/25 09:00 Morphine Sulf Inj 4 Mg/Ml Vial IVP 08/15/25 17:09 Q4HR PRN PAIN SCALE 4-6 Ondansetron HCl 4 mg 08/08/25 20:59 Ondansetron Inj 2 Mg/Ml Inj 2 Ml IVP 09/07/25 20:58 Q6H PRN NAUSEA OR VOMITING Protocol Pharmacy Consult 1 each 08/09/25 09:00 Vancomycin Pharmacy To Dose 1 Each Each IV 09/08/25 08:59 QDAY PRN PROTOCOL Plan Carla Washington 65F pmhx significant for invasive adenocarcinoma of ascending colon s/p ex lap R hemicolectomy and ilio transverse anastomosis 07/21, prediabetes, anemia presented to [facility] ED on 08/08 with one day of high fevers of 103 deg and vomiting green bilious and one day of burning on urination, admitted for large abdominal abscess, pelvic abscess and UTI. Course complicated by leakage of fecal matter through previous surgical incision site, underwent ex lap with resection of small bowel takedown of anastomosis and diverting ileostomy on 08/11 for multiple small bowel lacerations. #Multiple small bowel lacerations s/p ex lap and resection of small bowl and takedown of anastomosis and diverting ileostomy 08/11 #Invasive adenocarcinoma of ascending colon s/p ex lap R hemicolectomy and ilio transverse anastomosis 07/21 #Abdominal abscess s/p IR drainage 08/10 #Pelvic abscess s/p IR drainage 08/09 Presented with 1 day of high fevers of 103 degrees and 3 episodes of bilious green vomiting. Patient admitted recently from 07/18- 08/05 for abdominal pain, found to have invasive adenocarcinoma s/p ex lap, given TPN through central line at the time. Patient's hospital course at that time was prolonged by E. coli bacteremia and Enterococcus and Pseudomonas UTI, treated w abx. On current admission, febrile temperature 103.9, tachycardic 140, tachypneic 25. WBC 13.7, Pro-Gonzalez elevated 1.7. NG tube placed. CXR bibasilar PNA per read unchanged from previous admission. s/p 3L of fluid in ED. BCx [id number] Overnight on 08/10 to 08/11, primary team notified regarding stool leaking from incision site of previous surgery on 07/21. Ex lap done 08/11 showing multiple small bowel lacerations proximal to anastomosis which was intact. Small bowel was resected which involved most of the ileum and the jejunal ileal junction was chosen for site to free ileostomy. Abdominal wound extensively irrigated and washed out. Incision was left open for secondary closure. During procedure, patient received 2 units PRBC and 1 dose of TXA. 08/08 CTAP; large abscess and soft tissue abdominal wall 16 x 8 x 4.5 cm, prominent colonic and small bowel ileus, suspicious for 8 x 8 cm pelvic abscess. Flagyl (08/08), Cipro (08/08), s/p albumin 50 g (08/09) Plan: - Zosyn (08/08- ),Vanc (08/09- ), Micafungin (08/09- - Surgery consulted, recs appreciated: will need TPN and PICC line placement - Dietitian consulted, recs appreciated - Morphine 3 mg q4h prn and Dilaudid 0.5 mg q4h prn for pain #Colonic and small bowel ileus Patient reports daily formed nonbloody bowel movements as well as ability to pass gas. Vomiting x3 day prior to admission CTAP findings as above. Plan: - NG tube for decompression post surgery #Hypernatremia #Hypokalemia On admission K 2.7, adequately repleted. On 08/10, Na 148 and K 2.9. Likely 2/2 NG suctioning. Plan: - D5W 50 cc/hr - Replete and recheck as necessary #Pyuria #Dysuria Reports 1 day of burning on urination. UA 1+ protein, trace blood, +LE, RBC 4, WBC 30. UCx negative. Plan: - CTM for urinary symptoms #Sinus tachycardia Initial EKG sinus tachycardia with short PA interval rate 135, QTc 496. Likely 2/2 pain and abscess. Plan: - Med tele for monitoring - Abx as above #Normocytic anemia, stable Hgb admission 10.9 and 9.7 s/p 3L fluids. Iron panel previous missions showed low iron 5, TIBC 135, iron saturation 3, ferritin 135. Likely secondary to chronic disease of adenocarcinoma. Denies melena, hematochezia or hematemasis. s/p 2 pRBC during surgery Plan: - CTM CBC Hospital management: Lines: PIV Diet: NPO, plan for TPN starting tonight if PICC placed Bowel: not indicated GI prophylaxis: not indicated DVT prophylaxis: held iso surgery Disposition: med tele, post op day 1, PICC placement CODE STATUS: FULL CODE Plan of care discussed with attending Dr. Maier, and PGY-3 Dr. Ramirez. Kim Hanks DO PGY-1 Internal Medicine Attending Provider Attestation/Addendum Connie, Melody Maier DO, attest that I was physically present for the [place] portions of the service and evaluated the patient with the resident and I reviewed and discussed the case with the resident and agree with the resident's findings and plans of care as documented above Patient seen and examined. Patient states that she is doing well. She is in good spirits. NG tube remains in place with bilious output. She is postop day 1 after the ex lap and diverting colostomy. Rash over her face. Improved in comparison to yesterday. Wound culture is gram-negative rods. Will continue vancomycin, Zosyn and micafungin at this time. Will follow-up with final cultures and sensitivities. If leukocytosis improves and patient is afebrile, plan to discontinue vancomycin tomorrow as she is MRSA negative. Will start patient on TPN today. PICC line ordered to be placed. With pain control as needed. Will order incentive spirometer.
--- NOTE | 2025-08-12 10:02 | PC.NURSE ---
physical therapist at bedside, POC discussed.
[2025-08-12] MEDS: DEXTROSE 5%-WATER 1,000 ML 50 ML IV (11:33)
--- NOTE | 2025-08-12 12:53 | PD.SURPROG ---
Documentation for date of: 08/12/25 Subjective Subjective Brief History: Patient was readmitted with fever and chills from the shelter after discharge few days ago Narrative: Patient is feeling better but has abdominal pain. Exam Vital Signs Temp Pulse Resp BP Pulse Ox O2 Del Method O2 Flow Rate 97.6 F 87 18 144/88 H 97 Room Air 3 08/12/25 08:00 08/12/25 08:00 08/12/25 08:00 08/12/25 08:00 08/12/25 08:00 08/12/25 08:00 08/11/25 17:05 Vital signs are stable Routine Abdominal Exam Comments: Examination of the abdomen shows that ileostomy is draining greenish fluid and she is anxious to eat. Additional findings Additional findings: JARAD drainage is not draining much fluid Results Results: Laboratory Laboratory Narrative: Laboratory results show stable hemoglobin but increased leukocytosis as expected Assessment & Plan Assessment Additional comments: Impression: Because of the two major surgeries patient will require nutritional support. Moreover she has lost a fair amount of intestine now and she may have some short-bowel syndrome. Plan Plan: Because of the reasons mentioned above we shall start her on TPN. PROCEDURES: Procedures Explored laparotomy and resection of the small bowel and takedown of the anastomosis and diverting ileostomy
--- NOTE | 2025-08-12 14:32 | PC.NURSE ---
PATIENT ON TRANSFER VIA GURNEY TO CLEANING MATRON ACCOMPANIED BY BLAZE KNIGHT. PT ALERT AND ORIENTED X4.
[2025-08-12] MEDS: HEPARIN SOD LOCK SYR 100 UNIT/ML 500 UNIT STFIELD (15:10)
[2025-08-12] MEDS: LIDOCAINE INJ PF 1% 30 ML VIAL 4 ML EPID (15:10)
--- NOTE | 2025-08-12 15:33 | PC.NURSE ---
PATIENT BACK IN HER ROOM ALERT AND ORIENTED X4 WITH PICC LINE TO RIGHT UPPER ARM .
--- NOTE | 2025-08-12 15:52 | PC.NURSE ---
report obtained from Karen KNIGHT via phone patient was picked up with a yamile patient was then taken to IR in which consent was obtained from Dr Busch and Patient son (via phone) patients arm was prepped and draped PICC line inserted without any complications DR Busch gave me a verbal order of may use PICC line Karen KNIGHT was in lunch, report given to Sobeida KNIGHT see SAJI for medications given
[2025-08-12 23:01] LABS: Vancomycin,Trough 15.3 mcg/mL (5.0-10.0)
[2025-08-13] VITALS (9 sets, daily range): BP systolic 130–170; BP diastolic 77–90; PULSE 69–90; RESP 16–98; TEMP 36.2–37.1; O2SAT 94–96; BMI 11.0
[2025-08-13] MEDS: INSULIN HUM REGULAR 1 UNIT/0.01 ML (PER UNIT) SC ×5 (00:44→23:34)
[2025-08-13] MEDS: PIPER/TAZO INJ 4.5 GM in SODIUM CHLORIDE 0.9% (POP) 100 ML IV ×3 (05:26→21:13)
[2025-08-13] MEDS: HYDROmorphone INJ 2 MG/ML VIAL 0.5 MG IVP ×4 (05:34→22:21)
[2025-08-13 06:10] LABS: Basophils # (Auto) 0.0 Thou/mm3 (0.0-0.2); Basophils % (Auto) 0 % (0-2.5); Eosinophils # (Auto) 0.2 Thou/mm3 (0.0-0.5); Eosinophils % (Auto) 1 % (0-10); Hematocrit 29.5 % (36.0-46.0); Hemoglobin 9.5 g/dL (12.0-16.0); Immature Granulocytes Auto 3.42 Thou/mm3 (0.00-0.00); Lymphocytes # (Auto) 2.2 Thou/mm3 (1.0-4.8); Lymphocytes % (Auto) 13 % (10-50); Mean Corpuscular HGB Conc 32.2 g/dl (31.0-37.0); Mean Corpuscular Hemoglobin 29.1 pg (25.0-35.0); Mean Corpuscular Volume 90 fL (80-100); Monocytes # (Auto) 1.0 Thou/mm3 (0.0-0.8); Monocytes % (Auto) 6 % (0-12); Neutrophils # (Auto) 11.0 Thou/mm3 (1.8-7.7); Neutrophils % (Auto) 62 % (37-80); Nucleated Red Blood Cell # 0.06 Thou/mm3 (0.00-0.00); Nucleated Red Blood Cell % 0 /100 WBC (0); Platelet Count 347 Thou/mm3 (140-440); RDW Standard Deviation 53.5 fL (36.4-46.3); Red Blood Count 3.27 Miln/mm3 (4.00-5.20); White Blood Count 17.8 Thou/mm3 (3.6-11.0)
[2025-08-13 06:55] LABS: Alanine Aminotransferase < 7 U/L (10-49); Albumin, Serum 2.4 gm/dL (3.4-4.8); Albumin/Globulin Ratio 0.9 (1.2-2.2); Alkaline Phosphatase 118 U/L (46-116); Anion Gap 11 (7-16); Aspartate Amino Transferase < 10 U/L (0-34); BUN/Creatinine Ratio 19 Ratio (12-20); Bilirubin,Total 0.3 mg/dL (0.3-1.2); Blood Urea Nitrogen 13 mg/dL (9-23); Calcium 8.1 mg/dL (8.3-10.6); Calcium (Corrected) 9.4 mg/dL (8.5-10.1); Carbon Dioxide 24.7 mMol/L (20.0-31.0); Chloride 111 mMol/L (98-107); Creatinine (Component) 0.7 mg/dL (0.6-1.3); Estimated Creatinine Clearance 55.2 mL/min (>60); Globulin 2.7 gm/dL (2.3-3.5); Glucose 179 mg/dL (74-106); Magnesium 1.6 mg/dL (1.6-2.6); Osmolality,Calculated 296 (275-295); Phosphorous 1.9 mg/dL (2.4-5.1); Potassium 3.1 mMol/L (3.4-5.1); Sodium 147 mMol/L (136-145); Total Protein 5.1 gm/dL (5.7-8.2); eGFR > 60 See Note
[2025-08-13] MEDS: DEXTROSE 5%-WATER 1,000 ML 50 ML IV (07:52)
[2025-08-13] MEDS: MICAFUNGIN SODIUM INJ 100 MG in SODIUM CHLORIDE 0.9% 100 ML IV (08:33)
[2025-08-13] MEDS: MORPHINE SULF INJ 4 MG/ML VIAL 3 MG IVP (08:33)
[2025-08-13] MEDS: POT PHOS 15 mMol in NS 250 ML 15 MMOL/250 ML BAG 62.5 MMOL IV ×2 (08:33→13:21)
[2025-08-13] MEDS: VANCOMYCIN/NS 500 MG IVPB 100 ML 120 MG IV (10:03)
--- NOTE | 2025-08-13 10:23 | PD.SURPROG ---
Documentation for date of: 08/13/25 Subjective Subjective Brief History: Patient was readmitted with fever and chills from the custodial after discharge few days ago Narrative: The patient is feeling slightly better and her pain is less. She has tolerated clear liquids after the NG tube was clamped. She did not require suction. The ileostomy is draining greenish fluid. Exam Vital Signs Temp Pulse Resp BP Pulse Ox O2 Del Method O2 Flow Rate 97.2 F 74 16 154/80 H 96 Room Air 3 08/13/25 07:20 08/13/25 07:20 08/13/25 07:20 08/13/25 07:20 08/13/25 07:20 08/13/25 07:20 08/11/25 17:05 Her vital signs are normal Routine Abdominal Exam Comments: Abdominal examination shows no significant change Results Results: Laboratory Laboratory Narrative: Laboratory results show the WBC is trending down. Assessment & Plan Assessment Additional comments: Impression: Status post ileostomy after resection of the small bowel Plan Plan: We shall continue aggressive TPN and wait for her to eat adequately. We will DC NG and Garsia catheter PROCEDURES: Procedures Explored laparotomy and resection of the small bowel and takedown of the anastomosis and diverting ileostomy
--- NOTE | 2025-08-13 12:10 | PC.NURSE ---
PATIENT POST VOID AFTER NEWSOME CATHETER REMOVAL
[2025-08-13 12:29] LABS: Procalcitonin 1.07 ng/ml (0.0-0.49)
[2025-08-13 13:03] LABS: Anion Gap 11 (7-16); Carbon Dioxide 24.8 mMol/L (20.0-31.0); Cardiac Risk Estimate 6.0 RATIO (3.7-5.6); Chloride 110 mMol/L (98-107); Cholesterol 66 mg/dL (132-200); HDL Cholesterol 11 mg/dL (40-60); LDL Cholesterol,Calculated 16 mg/dL (0-130); Potassium 3.7 mMol/L (3.4-5.1); Sodium 146 mMol/L (136-145); Triglycerides 193 mg/dL (30-150)
[2025-08-13] MEDS: THIAMINE INJ 100 MG/ML VIAL 2 ML 250 MG IV (13:21)
--- NOTE | 2025-08-13 14:05 | ESPR_ITS ---
Documentation for date of: 08/13/25 Senior resident attestation: Patient evaluated and examined at the bedside, plan of care discussed with rest of the team including my attending physician, except as noted. Patient is a 65-year-old female is bounce back from preious hospitalizatrion, past medical history of invasive carcinoma status post ex lap and right hemicolectomy, and renal status post anastomosis, on 07/21/2025,during previous hospital course was complicated by E. coli bacteremia, Pseudomonas and vancomycin resistant Enterococcus UTI infection, completed antibiotics, patient was discharged home. patient presented with acute onset of fever shaking chills, and swelling in the abdomen, found to have CT abdominal pelvis was done which found pelvic abscess and right abdominal wall abscess, general surgeon Dr. Suggs was consulted to evaluate the patient, recommended CT-guided IR abscess drainage, pelvic abscess was drained in 08/09/2025, patient has another large abscess in right abdominal wall, containing air, pending IR guided drainage.Patient was taken to the OR for ex lap and resection of small bowel and takedown of anastomosis and diverting ileostomy, multiple intra-abdominal abscesses and leakage of small bowel contents, noted multiple lacerations small bowel in the distal portion of the massive contamination of abdominal cavity the small bowel resected mostly in the region and the anastomosis was taken down. Ileostomy was made. The skin and the subcu tissue was left open because of massive contamination of small bowel contents. Surgical gauze packing in place. Noted some blood-tinged fluid in JARAD drain, dietary consulted, for TPN, PICC line placed. Patient started on clear liquid diet per gen surg., Currently on Zosyn, d/c vancomycin and micafungin as cultures negative. Quresh PGY3 Subjective Subjective Interval history: No acute overnight events. Patient postop day 2 following small bowel resection and takedown of anastomosis and diverting ileostomy. Patient reports 7/10 abdominal pain, alleviated with pain regimen. Able to tolerate some of her CLD. No new complaints. Vitals labs reviewed, SBP 130-160, HR 60 to 80s. WBC downtrending 17.8, hemoglobin stable 9.3, sodium 146, potassium 3.7, chloride 110, bicarb 24, phosphorus 1.9 repleted with 30 mEq K-Phos. Discontinue vancomycin and micafungin, continue Zosyn. Continue CLD and advance diet as tolerated and per GI discretion. Discontinue D5W as patient is getting TPN. Continue to monitor postop recovery. Exam Vital Signs Temp Pulse Resp BP Pulse Ox O2 Del Method O2 Flow Rate 97.6 F 80 17 170/90 H 96 Room Air 3 08/13/25 12:00 08/13/25 12:00 08/13/25 12:00 08/13/25 12:00 08/13/25 12:00 08/13/25 12:00 08/11/25 17:05 Narrative Exam GENERAL: AOx3, no acute distress HEENT: mucous membranes moist, bilateral sclera anicteric, NG tube in place clamped, black fluid in container CARDIOVASCULAR: regular rate and rhythm, S1/S2 present, no murmurs appreciated PULMONARY: clear to auscultation bilaterally, no rales/rhonchi/wheezes ABDOMINAL: soft, no rebound/guarding, bowel sounds present, incision site packed with gauze, one wound drain in place, ileostomy present draining black fluid EXTREMITIES: no peripheral edema SKIN: warm and dry, intact, erythematous non pruitic wheals on forehead NEURO: CN II-XII grossly intact, no focal deficits, alert, following commands Objective Labs 08/14/25 04:35 08/14/25 04:35 Labs: Laboratory Results - last 24 hr 08/12/25 08/13/25 08/13/25 20:50 04:37 04:37 WBC 17.8 H D RBC 3.27 L Hgb 9.5 L Hct 29.5 L MCV 90 MCH 29.1 MCHC 32.2 RDW Std Deviation 53.5 H Plt Count 347 D Neut % (Auto) 62 Lymph % (Auto) 13 [place] % (Auto) 6 Eos % (Auto) 1 Baso % (Auto) 0 Neut # (Auto) 11.0 H Lymph # (Auto) 2.2 [place] # (Auto) 1.0 H Eos # (Auto) 0.2 Baso # (Auto) 0.0 Immature Gran # (Auto) 3.42 H Absolute Nucleated RBC 0.06 H Immature Gran % 19 H Nucleated RBC % 0 Sodium 147 H 146 H Potassium 3.1 L D Chloride Carbon Dioxide Anion Gap BUN Creatinine Estim Creat Clear Calc eGFR BUN/Creatinine Ratio Glucose Calculated Osmolality Calcium Corrected Calcium Phosphorus Magnesium Total Bilirubin AST ALT Alkaline Phosphatase Total Protein Albumin Globulin Albumin/Globulin Ratio Triglycerides Cholesterol LDL Cholesterol, Calc HDL Cholesterol Cholesterol/HDL Ratio Procalcitonin Vancomycin Trough 15.3 H 08/13/25 08/13/25 08/13/25 04:37 04:37 04:37 WBC RBC Hgb Hct MCV MCH MCHC RDW Std Deviation Plt Count Neut % (Auto) Lymph % (Auto) [place] % (Auto) Eos % (Auto) Baso % (Auto) Neut # (Auto) Lymph # (Auto) [place] # (Auto) Eos # (Auto) Baso # (Auto) Immature Gran # (Auto) Absolute Nucleated RBC Immature Gran % Nucleated RBC % Sodium Potassium 3.7 D Chloride 111 H 110 H Carbon Dioxide 24.7 24.8 Anion Gap 11 BUN Creatinine Estim Creat Clear Calc eGFR BUN/Creatinine Ratio Glucose Calculated Osmolality Calcium Corrected Calcium Phosphorus Magnesium Total Bilirubin AST ALT Alkaline Phosphatase Total Protein Albumin Globulin Albumin/Globulin Ratio Triglycerides Cholesterol LDL Cholesterol, Calc HDL Cholesterol Cholesterol/HDL Ratio Procalcitonin Vancomycin Trough 08/13/25 04:37 WBC RBC Hgb Hct MCV MCH MCHC RDW Std Deviation Plt Count Neut % (Auto) Lymph % (Auto) [place] % (Auto) Eos % (Auto) Baso % (Auto) Neut # (Auto) Lymph # (Auto) [place] # (Auto) Eos # (Auto) Baso # (Auto) Immature Gran # (Auto) Absolute Nucleated RBC Immature Gran % Nucleated RBC % Sodium Potassium Chloride Carbon Dioxide Anion Gap 11 BUN 13 Creatinine 0.7 Estim Creat Clear Calc 55.2 L eGFR > 60 BUN/Creatinine Ratio 19 Glucose 179 H Calculated Osmolality 296 H Calcium 8.1 L Corrected Calcium 9.4 Phosphorus 1.9 L Magnesium 1.6 Total Bilirubin 0.3 AST < 10 ALT < 7 L Alkaline Phosphatase 118 H D Total Protein 5.1 L Albumin 2.4 L Globulin 2.7 Albumin/Globulin Ratio 0.9 L Triglycerides 193 H Cholesterol 66 L LDL Cholesterol, Calc 16 HDL Cholesterol 11 L Cholesterol/HDL Ratio 6.0 H Procalcitonin 1.07 H Vancomycin Trough ABG Interpretation ABG results: 08/11/25 13:49 ABG pH 7.27 L ABG pCO2 39 ABG pO2 185 H ABG HCO3 18 L ABG O2 Saturation 100 H ABG Base Excess -9 L Quality Measures Quality Measures VTE prophylaxis Advance care planning discussed with:: patient Assessment & Plan Assessment Current Active Medications: Generic Name Dose Route Start Last Admin Trade Name Freq PRN Reason Stop Dose Admin Hydrocodone Bitart/Acetaminophen 1 tab 08/13/25 12:11 Hydrocodone/Apap 7.5/325 Tablet PO 08/18/25 12:10 Q4HR PRN PAIN SCALE 4-10(Mod-Sev Heparin Sodium (Porcine) 5,000 unit 08/08/25 21:00 08/11/25 09:19 Heparin Sod Inj 5000 Unit/Ml Vial SC 08/22/25 20:59 Not Given On Hold: 08/11/25 16:24 BID SHAWNA Hydromorphone HCl 0.5 mg 08/13/25 12:12 Hydromorphone Inj 2 Mg/Ml Vial IVP 08/17/25 08:58 Q4HR PRN BREAKTHROUGH PAIN (SEVERE) Piperacillin Sod/Tazobactam 100 mls @ 25 mls/hr 08/09/25 14:00 08/13/25 13:21 Sod 4.5 gm/ Sodium Chloride IV 08/16/25 13:59 25 mls/hr Q8HR SHAWNA Administration Protocol Fat Emulsion Intravenous 500 mls @ 32 mls/hr 08/13/25 18:00 Intralipid 20% Iv IV 09/12/25 17:59 [email or web address] SHAWNA Potassium Acetate 60 meq/ 2,061 mls @ 45 mls/hr 08/12/25 18:00 08/13/25 01:34 Potassium Phosphate 21 mmol/ IV 08/14/25 15:47 60 mls/hr Magnesium Sulfate 2 gm/ QDAY@1800 ONE Infusion Calcium Gluconate 2 gm/ Amino Acids Potassium Phosphate 15 mmol in 250 mls @ 62.5 mls/hr 08/13/25 07:40 08/13/25 13:21 Pot Phos 15 Mmol In Ns 250 Ml IV 08/13/25 15:39 62.5 mls/hr Q4H SHAWNA Administration Potassium Acetate 40 meq/ 2,043 mls @ 60 mls/hr 08/13/25 18:00 Potassium Phosphate 15 mmol/ IV 08/14/25 17:59 Magnesium Sulfate 4 gm/ .Q24H SHAWNA Multivitamins/Minerals 10 ml/ Amino Acids Insulin Human Regular 0 unit 08/13/25 00:00 08/13/25 12:10 Insulin Hum Regular 1 Unit/0.01 Ml (Per Unit) SC 09/12/25 00:00 4 unit Q6HR SHAWNA Administration Protocol Ondansetron HCl 4 mg 08/08/25 20:59 Ondansetron Inj 2 Mg/Ml Inj 2 Ml IVP 09/07/25 20:58 Q6H PRN NAUSEA OR VOMITING Protocol Pharmacy Consult 1 each 08/12/25 13:20 Pha To Consult Parenteral Nutr 1 Each Each XX 09/11/25 13:19 PRN PRN CONSULT Plan Carla Washington 65F pmhx significant for invasive adenocarcinoma of ascending colon s/p ex lap R hemicolectomy and ilio transverse anastomosis 07/21, prediabetes, anemia presented to [facility] ED on 08/08 with one day of high fevers of 103 deg and vomiting green bilious and one day of burning on urination, admitted for large abdominal abscess, pelvic abscess and UTI. Course complicated by leakage of fecal matter through previous surgical incision site, underwent ex lap with resection of small bowel takedown of anastomosis and diverting ileostomy on 08/11 for multiple small bowel lacerations. #Multiple small bowel lacerations s/p ex lap and resection of small bowl and takedown of anastomosis and diverting ileostomy 08/11 #Invasive adenocarcinoma of ascending colon s/p ex lap R hemicolectomy and ilio transverse anastomosis 07/21 #Abdominal abscess s/p IR drainage 08/10 #Pelvic abscess s/p IR drainage 08/09 Presented with 1 day of high fevers of 103 degrees and 3 episodes of bilious green vomiting. Patient admitted recently from 07/18- 08/05 for abdominal pain, found to have invasive adenocarcinoma s/p ex lap, given TPN through central line at the time. Patient's hospital course at that time was prolonged by E. coli bacteremia and Enterococcus and Pseudomonas UTI, treated w abx. On current admission, febrile temperature 103.9, tachycardic 140, tachypneic 25. WBC 13.7, Pro-Gonzalez elevated 1.7. NG tube placed on admission. CXR bibasilar PNA per read unchanged from previous admission. s/p 3L of fluid in ED. BCx [id number] Overnight on 08/10 to 08/11, primary team notified regarding stool leaking from incision site of previous surgery on 07/21. Ex lap done 08/11 showing multiple small bowel lacerations proximal to anastomosis which was intact. Small bowel was resected which involved most of the ileum and the jejunal ileal junction was chosen for site to free ileostomy. Abdominal wound extensively irrigated and washed out. Incision was left open for secondary closure. During procedure, patient received 2 units PRBC and 1 dose of TXA. 08/08 CTAP; large abscess and soft tissue abdominal wall 16 x 8 x 4.5 cm, prominent colonic and small bowel ileus, suspicious for 8 x 8 cm pelvic abscess. Flagyl (08/08), Cipro (08/08), s/p albumin 50 g (08/09), Vanc (08/09-08/13), Micafungin (08/09-08/13), L PICC placed and TPN started 08/12, Plan: - Zosyn (08/08- ) - Surgery consulted, recs appreciated - Dietitian consulted, recs appreciated: D20% AA5% at 60 mL/hr with 500 mL 20% lipids 3x/wk, add MVI with minerals QD, folate 1 mg if not in MVI, B12 500-1000 mcg QD, D3 3000-600 IU QD, Zinc 220 QD for 2 weeks, will hold oral pill/tablet supplements for now as patient is slowly starting CLD post op - [place] 7.5 q4h prn and Dilaudid 0.5 mg q4h prn for pain #Colonic and small bowel ileus Patient reports daily formed nonbloody bowel movements as well as ability to pass gas. Vomiting x3 day prior to admission CTAP findings as above. Plan: - NG tube for decompression, now clamped #Hypernatremia, improving #Hypokalemia, resolved On admission K 2.7, adequately repleted. On 08/10, Na 148 and K 2.9. Likely 2/2 NG suctioning. Plan: - Replete and recheck as necessary #Pyuria #Dysuria Reports 1 day of burning on urination. UA 1+ protein, trace blood, +LE, RBC 4, WBC 30. UCx negative. Plan: - CTM for urinary symptoms #Sinus tachycardia Initial EKG sinus tachycardia with short VT interval rate 135, QTc 496. Likely 2/2 pain and abscess. Plan: - Med [facility] for monitoring - Abx as above #Normocytic anemia, stable Hgb admission 10.9 and 9.7 s/p 3L fluids. Iron panel previous missions showed low iron 5, TIBC 135, iron saturation 3, ferritin 135. Likely secondary to chronic disease of adenocarcinoma. Denies melena, hematochezia or hematemasis. s/p 2 pRBC during surgery Plan: - CTM CBC Hospital management: Lines: PIV, L PICC Diet: CLD Bowel: not indicated GI prophylaxis: not indicated DVT prophylaxis: held iso post surgery Disposition: med tele, post op day 2, TPN CODE STATUS: FULL CODE Plan of care discussed with attending Dr. Maier, and PGY-3 Dr. Ramirez. Kim Hanks DO PGY-1 Internal Medicine Attending Provider Attestation/Addendum Connie, Melody Maier DO, attest that I was physically present for the [place] portions of the service and evaluated the patient with the resident and I reviewed and discussed the case with the resident and agree with the resident's findings and plans of care as documented above Patient seen and evaluated this AM. She states she is doing well. NG tube was removed yesterday and patient has been tolerating clear liquid diet. Diet has now been advanced by surgeon. Patient encouraged to work with physical therapy and use incentive spirometer. Colostomy appears to be filled with gas, but no stool. Mild drainage noted from dressing. Case discussed with surgeon regarding diet. JARAD drain has minimal serous output. Continue with TPN at this time. Wound care to follow. abdominal cultures positive for klebsiella, sensitive to zosyn. Will dc vancomycin and micafungin at this time. Leukocytosis downtrending. Afebrile overnight. She reports pain is tolerable and denies nausea or vomiting, shortness of breath or chest pain.
[2025-08-13] MEDS: FAT EMULSIONS 20% IV 500 ML 32 ML IV (18:12)
[2025-08-14] VITALS (7 sets, daily range): BP systolic 128–156; BP diastolic 79–88; PULSE 82–97; RESP 15–18; TEMP 36.2–36.8; O2SAT 95–97
[2025-08-14] MEDS: HYDROmorphone INJ 2 MG/ML VIAL 0.5 MG IVP ×3 (04:56→19:56)
[2025-08-14] MEDS: INSULIN HUM REGULAR 1 UNIT/0.01 ML (PER UNIT) SC ×4 (05:40→23:20)
[2025-08-14] MEDS: PIPER/TAZO INJ 4.5 GM in SODIUM CHLORIDE 0.9% (POP) 100 ML IV ×3 (05:41→21:19)
[2025-08-14 06:24] LABS: Basophils # (Auto) 0.1 Thou/mm3 (0.0-0.2); Basophils % (Auto) 0 % (0-2.5); Eosinophils # (Auto) 0.7 Thou/mm3 (0.0-0.5); Eosinophils % (Auto) 4 % (0-10); Hematocrit 33.4 % (36.0-46.0); Hemoglobin 10.7 g/dL (12.0-16.0); Immature Granulocytes Auto 3.52 Thou/mm3 (0.00-0.00); Lymphocytes # (Auto) 2.2 Thou/mm3 (1.0-4.8); Lymphocytes % (Auto) 13 % (10-50); Mean Corpuscular HGB Conc 32.0 g/dl (31.0-37.0); Mean Corpuscular Hemoglobin 29.4 pg (25.0-35.0); Mean Corpuscular Volume 92 fL (80-100); Monocytes # (Auto) 1.0 Thou/mm3 (0.0-0.8); Monocytes % (Auto) 6 % (0-12); Neutrophils # (Auto) 9.2 Thou/mm3 (1.8-7.7); Neutrophils % (Auto) 55 % (37-80); Nucleated Red Blood Cell # 0.07 Thou/mm3 (0.00-0.00); Nucleated Red Blood Cell % 0 /100 WBC (0); Platelet Count 356 Thou/mm3 (140-440); RDW Standard Deviation 54.3 fL (36.4-46.3); Red Blood Count 3.64 Miln/mm3 (4.00-5.20); White Blood Count 16.6 Thou/mm3 (3.6-11.0)
[2025-08-14 07:05] LABS: Alanine Aminotransferase < 7 U/L (10-49); Albumin, Serum 2.8 gm/dL (3.4-4.8); Albumin/Globulin Ratio 1.0 (1.2-2.2); Alkaline Phosphatase 171 U/L (46-116); Anion Gap 11 (7-16); Aspartate Amino Transferase 11 U/L (0-34); BUN/Creatinine Ratio 17 Ratio (12-20); Bilirubin,Total 0.3 mg/dL (0.3-1.2); Blood Urea Nitrogen 10 mg/dL (9-23); Calcium 8.0 mg/dL (8.3-10.6); Calcium (Corrected) 9.0 mg/dL (8.5-10.1); Carbon Dioxide 27.9 mMol/L (20.0-31.0); Chloride 108 mMol/L (98-107); Creatinine (Component) 0.6 mg/dL (0.6-1.3); Estimated Creatinine Clearance 64.4 mL/min (>60); Globulin 2.7 gm/dL (2.3-3.5); Glucose 175 mg/dL (74-106); Magnesium 2.0 mg/dL (1.6-2.6); Osmolality,Calculated 295 (275-295); Phosphorous 2.8 mg/dL (2.4-5.1); Potassium 3.1 mMol/L (3.4-5.1); Sodium 147 mMol/L (136-145); Total Protein 5.5 gm/dL (5.7-8.2); eGFR > 60 See Note
[2025-08-14] MEDS: HYDROcodone/APAP 7.5/325 TABLET 1 TAB PO ×3 (08:02→17:39)
--- NOTE | 2025-08-14 08:36 | PD.SURPROG ---
Documentation for date of: 08/14/25 Subjective Subjective Narrative: Patient is seen and examined. She is resting comfortably. She is tolerating clear liquids without nausea or vomiting and ileostomy is functioning Exam Vital Signs Temp Pulse Resp BP Pulse Ox O2 Del Method O2 Flow Rate 97.8 F 87 18 151/80 H 97 Room Air 3 08/14/25 08:00 08/14/25 08:00 08/14/25 08:00 08/14/25 08:00 08/14/25 08:00 08/14/25 08:00 08/11/25 17:05 Constitutional Constitutional: no acute distress Routine Abdominal Exam Comments: Abdomen is soft and mildly distended. Incision with dressings clean, dry and intact. Ileostomy is functioning Assessment & Plan Assessment Additional comments: Status post exploratory laparotomy, small bowel resection, takedown of ileocolonic anastomosis with ileostomy Plan Continue PPN. Will advance to full liquids and start nutritional supplements PROCEDURES: Procedures Explored laparotomy and resection of the small bowel and takedown of the anastomosis and diverting ileostomy
--- NOTE | 2025-08-14 11:50 | PD.RESPRO ---
Documentation for date of: 08/14/25 Subjective Subjective Interval history: Patient seen and examined at bedside. Leukocytosis resolving, hemoglobin 10.7 stable, potassium 3.1 and being repleted. Per pharmacy she will receive approximately 70 mill EQ potassium over the next 24 hours with the current solutions that she is receiving. Exam Vital Signs Temp Pulse Resp BP Pulse Ox O2 Del Method O2 Flow Rate 97.8 F 87 18 151/80 H 97 Room Air 3 08/14/25 08:00 08/14/25 08:00 08/14/25 08:00 08/14/25 08:00 08/14/25 08:00 08/14/25 08:00 08/11/25 17:05 Narrative Exam General: Awake and in no acute distress. Conversational and non-toxic appearing. Neurologic: GCS 15. Alert and oriented x3, no gross neurological deficit, and patient able to move all 4 extremities. HEENT: Normocephalic, atraumatic, mucous membranes moist. Pupils reactive to light. Heart: Regular rate and rhythm, normal S1 and S2, no murmurs. Lungs: Clear to auscultation bilaterally with no wheezing or crackles. Abdomen: Surgical bandage across the abdomen, no sign of infection, drain tube with small volume of red fluid. Extremities: No edema. 2+ radial and dorsalis pedis pulses bilaterally. Skin: Warm. Dry. No rash or ecchymoses. Objective Labs 08/14/25 04:35 08/14/25 11:55 Labs: Laboratory Results - last 24 hr 08/13/25 08/14/25 04:37 04:35 WBC 16.6 H RBC 3.64 L Hgb 10.7 L Hct 33.4 L MCV 92 MCH 29.4 MCHC 32.0 RDW Std Deviation 54.3 H Plt Count 356 Neut % (Auto) 55 Lymph % (Auto) 13 [place] % (Auto) 6 Eos % (Auto) 4 Baso % (Auto) 0 Neut # (Auto) 9.2 H Lymph # (Auto) 2.2 [place] # (Auto) 1.0 H Eos # (Auto) 0.7 H Baso # (Auto) 0.1 Immature Gran # (Auto) 3.52 H Absolute Nucleated RBC 0.07 H Immature Gran % 21 H Nucleated RBC % 0 Sodium 146 H 147 H Potassium 3.7 D 3.1 L D Chloride 110 H 108 H Carbon Dioxide 24.8 27.9 Anion Gap 11 11 BUN 10 Creatinine 0.6 Estim Creat Clear Calc 64.4 eGFR > 60 BUN/Creatinine Ratio 17 Glucose 175 H Calculated Osmolality 295 Calcium 8.0 L Corrected Calcium 9.0 Phosphorus 2.8 Magnesium 2.0 Total Bilirubin 0.3 AST 11 ALT < 7 L Alkaline Phosphatase 171 H D Total Protein 5.5 L Albumin 2.8 L Globulin 2.7 Albumin/Globulin Ratio 1.0 L Triglycerides 193 H Cholesterol 66 L LDL Cholesterol, Calc 16 HDL Cholesterol 11 L Cholesterol/HDL Ratio 6.0 H Procalcitonin 1.07 H ABG Interpretation ABG results: 08/11/25 13:49 ABG pH 7.27 L ABG pCO2 39 ABG pO2 185 H ABG HCO3 18 L ABG O2 Saturation 100 H ABG Base Excess -9 L Quality Measures Quality Measures VTE prophylaxis Advance care planning discussed with:: patient Assessment & Plan Assessment Current Active Medications: Generic Name Dose Route Start Last Admin Trade Name Freq PRN Reason Stop Dose Admin Hydrocodone Bitart/Acetaminophen 1 tab 08/13/25 12:11 08/14/25 08:02 Hydrocodone/Apap 7.5/325 Tablet PO 08/18/25 12:10 1 tab Q4HR PRN Administration PAIN SCALE 4-10(Mod-Sev Heparin Sodium (Porcine) 5,000 unit 08/08/25 21:00 08/11/25 09:19 Heparin Sod Inj 5000 Unit/Ml Vial SC 08/22/25 20:59 Not Given On Hold: 08/11/25 16:24 BID SHAWNA Hydromorphone HCl 0.5 mg 08/13/25 12:12 08/14/25 04:56 Hydromorphone Inj 2 Mg/Ml Vial IVP 08/17/25 08:58 0.5 mg Q4HR PRN Administration BREAKTHROUGH PAIN (SEVERE) Piperacillin Sod/Tazobactam 100 mls @ 25 mls/hr 08/09/25 14:00 08/14/25 05:41 Sod 4.5 gm/ Sodium Chloride IV 08/16/25 13:59 25 mls/hr Q8HR SHAWNA Administration Protocol Fat Emulsion Intravenous 500 mls @ 32 mls/hr 08/13/25 18:00 08/13/25 18:12 Intralipid 20% Iv IV 09/12/25 17:59 32 mls/hr [id number] SHAWNA Administration Potassium Acetate 40 meq/ 2,043 mls @ 60 mls/hr 08/13/25 18:00 08/13/25 18:12 Potassium Phosphate 15 mmol/ IV 08/14/25 17:59 60 mls/hr Magnesium Sulfate 4 gm/ .Q24H SHAWNA Administration Multivitamins/Minerals 10 ml/ Amino Acids Potassium Phosphate 30 mmol/ 2,020 mls @ 60 mls/hr 08/14/25 18:00 Multivitamins/Minerals 10 ml/ IV 08/15/25 17:59 Amino Acids/Electrolytes .Q24H SHAWNA Insulin Human Regular 0 unit 08/13/25 00:00 08/14/25 05:40 Insulin Hum Regular 1 Unit/0.01 Ml (Per Unit) SC 09/12/25 00:00 2 unit Q6HR SHAWNA Administration Protocol Ondansetron HCl 4 mg 08/08/25 20:59 Ondansetron Inj 2 Mg/Ml Inj 2 Ml IVP 09/07/25 20:58 Q6H PRN NAUSEA OR VOMITING Protocol Pharmacy Consult 1 each 08/12/25 13:20 Pha To Consult Parenteral Nutr 1 Each Each XX 09/11/25 13:19 PRN PRN CONSULT Plan Summary: Carla Washington 65F pmhx significant for invasive adenocarcinoma of ascending colon s/p ex lap R hemicolectomy and ilio transverse anastomosis 07/21, prediabetes, anemia presented to [facility] ED on 08/08 with one day of high fevers of 103 deg and vomiting green bilious and one day of burning on urination, admitted for large abdominal abscess, pelvic abscess and UTI. Course complicated by leakage of fecal matter through previous surgical incision site, underwent ex lap with resection of small bowel takedown of anastomosis and diverting ileostomy on 08/11 for multiple small bowel lacerations. #Multiple small bowel lacerations s/p ex lap and resection of small bowl and takedown of anastomosis and diverting ileostomy 08/11 #Invasive adenocarcinoma of ascending colon s/p ex lap R hemicolectomy and ilio transverse anastomosis 07/21 #Abdominal abscess s/p IR drainage 08/10 #Pelvic abscess s/p IR drainage 08/09 Presented with 1 day of high fevers of 103 degrees and 3 episodes of bilious green vomiting. Patient admitted recently from 07/18- 08/05 for abdominal pain, found to have invasive adenocarcinoma s/p ex lap, given TPN through central line at the time. Patient's hospital course at that time was prolonged by E. coli bacteremia and Enterococcus and Pseudomonas UTI, treated w abx. On current admission, febrile temperature 103.9, tachycardic 140, tachypneic 25. WBC 13.7, Pro-Gonzalez elevated 1.7. NG tube placed on admission. CXR bibasilar PNA per read unchanged from previous admission. s/p 3L of fluid in ED. BCx [id number] Overnight on 08/10 to 08/11, primary team notified regarding stool leaking from incision site of previous surgery on 07/21. Ex lap done 08/11 showing multiple small bowel lacerations proximal to anastomosis which was intact. Small bowel was resected which involved most of the ileum and the jejunal ileal junction was chosen for site to free ileostomy. Abdominal wound extensively irrigated and washed out. Incision was left open for secondary closure. During procedure, patient received 2 units PRBC and 1 dose of TXA. 08/08 CTAP; large abscess and soft tissue abdominal wall 16 x 8 x 4.5 cm, prominent colonic and small bowel ileus, suspicious for 8 x 8 cm pelvic abscess. Flagyl (08/08), Cipro (08/08), s/p albumin 50 g (08/09), Vanc (08/09-08/13), Micafungin (08/09-08/13), L PICC placed and TPN started 08/12 Plan: - Zosyn (08/08- ) - Surgery consulted, recs appreciated - Dietitian consulted, recs appreciated: D20% AA5% at 60 mL/hr with 500 mL 20% lipids 3x/wk, add MVI with minerals QD, folate 1 mg if not in MVI, B12 500-1000 mcg QD, D3 3000-600 IU QD, Zinc 220 QD for 2 weeks, will hold oral pill/tablet supplements for now as patient is slowly starting CLD post op - [place] 7.5 q4h prn and Dilaudid 0.5 mg q4h prn for pain #Colonic and small bowel ileus Patient reports daily formed nonbloody bowel movements as well as ability to pass gas. Vomiting x3 day prior to admission CTAP findings as above. Plan: - Continue ileostomy bag maintenance #Hypernatremia, (Resolved) #Hypokalemia, Resolving On admission K 2.7, adequately repleted. On 08/10, Na 148 and K 2.9. Likely 2/2 NG suctioning. NG tube discontinued. Patient is still hypokalemic, currently being repleted. Plan: - Replete and recheck as necessary #Pyuria #Dysuria Reported 1 day of burning on urination. UA 1+ protein, trace blood, +LE, RBC 4, WBC 30. UCx negative. Plan: - CTM for urinary symptoms - Currently on Zosyn #Sinus tachycardia (Resolved) Initial EKG sinus tachycardia with short OK interval rate 135, QTc 496. Likely 2/2 pain and abscess. Plan: - Med tele for monitoring - Abx as above #Normocytic anemia, stable Hgb admission 10.9 and 9.7 s/p 3L fluids. Iron panel previous missions showed low iron 5, TIBC 135, iron saturation 3, ferritin 135. Likely secondary to chronic disease of adenocarcinoma. Denies melena, hematochezia or hematemasis. s/p 2 pRBC during surgery Hb 10.7 and stable Plan: - CTM CBC Hospital management: Disposition: Med tele, post op day 3, TPN, continuing Zosyn. Lines: PIV, L PICC Diet: CLD Bowel: not indicated GI prophylaxis: not indicated DVT prophylaxis: held iso post surgery CODE STATUS: FULL CODE Patient was seen and discussed with my attending physician Dr. Stef BOYD. Maged Olvera DO PGY-1. Attending Provider Attestation/Addendum I Herberth Finch MD reviewed the note and agree with the resident's assessment & plan with modifications/additions/exceptions as below. I have personally reviewed labs, imaging, home meds/prior records, examined the patient, formulated and discussed management plan with the IM team. 65-year-old female admitted for hemicolectomy for colorectal cancer however developed intra-abdominal abscess s/p failed CT-guided drainage and had repeat exploratory laparotomy on 08/11/2025 with wound cultures growing Klebsiella. Patient is hemodynamically stable, has persistent leukocytosis, continue Zosyn, continue TPN, diet as guided by general surgery team. Once patient has improved we will consult oncology for further management.
[2025-08-14 12:27] LABS: Anion Gap 12 (7-16); Carbon Dioxide 27.5 mMol/L (20.0-31.0); Chloride 105 mMol/L (98-107); Potassium 3.3 mMol/L (3.4-5.1); Sodium 144 mMol/L (136-145)
[2025-08-15] VITALS (8 sets, daily range): BP systolic 117–142; BP diastolic 71–87; PULSE 71–98; RESP 16–18; TEMP 36.2–36.4; O2SAT 95–98
[2025-08-15] MEDS: HYDROmorphone INJ 2 MG/ML VIAL 0.5 MG IVP (02:56)
[2025-08-15] MEDS: PIPER/TAZO INJ 4.5 GM in SODIUM CHLORIDE 0.9% (POP) 100 ML IV ×3 (05:48→21:37)
[2025-08-15] MEDS: INSULIN HUM REGULAR 1 UNIT/0.01 ML (PER UNIT) SC ×4 (05:54→23:58)
[2025-08-15 05:57] LABS: Basophils # (Auto) 0.1 Thou/mm3 (0.0-0.2); Basophils % (Auto) 0 % (0-2.5); Eosinophils # (Auto) 1.0 Thou/mm3 (0.0-0.5); Eosinophils % (Auto) 5 % (0-10); Hematocrit 34.4 % (36.0-46.0); Hemoglobin 11.2 g/dL (12.0-16.0); Immature Granulocytes Auto 3.55 Thou/mm3 (0.00-0.00); Lymphocytes # (Auto) 2.2 Thou/mm3 (1.0-4.8); Lymphocytes % (Auto) 11 % (10-50); Mean Corpuscular HGB Conc 32.6 g/dl (31.0-37.0); Mean Corpuscular Hemoglobin 29.6 pg (25.0-35.0); Mean Corpuscular Volume 91 fL (80-100); Monocytes # (Auto) 1.1 Thou/mm3 (0.0-0.8); Monocytes % (Auto) 5 % (0-12); Neutrophils # (Auto) 12.6 Thou/mm3 (1.8-7.7); Neutrophils % (Auto) 62 % (37-80); Nucleated Red Blood Cell # 0.03 Thou/mm3 (0.00-0.00); Nucleated Red Blood Cell % 0 /100 WBC (0); Platelet Count 360 Thou/mm3 (140-440); RDW Standard Deviation 51.8 fL (36.4-46.3); Red Blood Count 3.79 Miln/mm3 (4.00-5.20); White Blood Count 20.5 Thou/mm3 (3.6-11.0)
[2025-08-15 06:21] LABS: Albumin, Serum 2.9 gm/dL (3.4-4.8); Albumin/Globulin Ratio 1.0 (1.2-2.2); Alkaline Phosphatase 186 U/L (46-116); Anion Gap 10 (7-16); Aspartate Amino Transferase 13 U/L (0-34); BUN/Creatinine Ratio 24 Ratio (12-20); Bilirubin,Total 0.3 mg/dL (0.3-1.2); Blood Urea Nitrogen 12 mg/dL (9-23); Calcium 8.2 mg/dL (8.3-10.6); Calcium (Corrected) 9.1 mg/dL (8.5-10.1); Carbon Dioxide 30.4 mMol/L (20.0-31.0); Chloride 102 mMol/L (98-107); Creatinine (Component) 0.5 mg/dL (0.6-1.3); Estimated Creatinine Clearance 77.3 mL/min (>60); Globulin 2.9 gm/dL (2.3-3.5); Glucose 187 mg/dL (74-106); Magnesium 2.0 mg/dL (1.6-2.6); Osmolality,Calculated 287 (275-295); Phosphorous 4.1 mg/dL (2.4-5.1); Potassium 3.5 mMol/L (3.4-5.1); Sodium 142 mMol/L (136-145); Total Protein 5.8 gm/dL (5.7-8.2); eGFR > 60 See Note
[2025-08-15 06:27] LABS: Alanine Aminotransferase < 7 U/L (10-49)
[2025-08-15] MEDS: HYDROcodone/APAP 7.5/325 TABLET 1 TAB PO ×4 (08:14→21:58)
--- NOTE | 2025-08-15 09:25 | ESPR_ITS ---
<Statement entered by Heidi Finch MD - 08/15/25 20:33> Pt is seen at bedside, tolerating full liquid diet. JARAD drain has approximately 200 cc output. Pt states she continues to be in significant abdominal pain which is well controlled with pain meds. Will continue TPN and advance diet slowly. Will continue IV abx with zosyn. Patient was seen and examined by me personally. I have directly supervised and reviewed documentation by the team resident and agree with its findings. ------- Plan of care was discussed with the attending, Dr. Stef Finch, PGY-2 Documentation for date of: 08/15/25 Subjective Subjective Interval history: Accompanied by son at bedside. Reports continued RLQ pain. Tolerating full liquids and Ensures. Exam Vital Signs Temp Pulse Resp BP Pulse Ox O2 Del Method O2 Flow Rate 97.1 F 86 17 127/82 95 Room Air 3 08/15/25 07:59 08/15/25 07:59 08/15/25 07:59 08/15/25 07:59 08/15/25 07:59 08/15/25 07:59 08/11/25 17:05 Narrative Exam General: No acute distress, well nourished Eye: PERRL, EOMI, normal conjunctiva, no scleral icterus HENT: Normocephalic, atraumatic, normal hearing, moist oral mucosa Neck: Supple, non-tender, no JVD, no lymphadenopathy Lungs: Clear to auscultation bilaterally, non-labored respirations, symmetric chest rise, no use of accessory muscles Heart: Normal S1 and S2, no S3 or S4 appreciated. Normal rate and regular rhythm, no murmurs, rubs gallops, or edema. Peripheral pulses intact bilaterally, capillary refill brisk distally Abdomen: Some TTP of RLQ. Surgical bandage across the abdomen, ileostomy bag in place draining yellow-green fluid Musculoskeletal: Normal range of motion and strength, no tenderness or swelling Skin: Skin is warm, dry, no rashes or lesions. Neurologic: Alert, awake and oriented x3. CN II-XII grossly intact. No focal neuro deficits. No signs of meningeal irritation noted. Psychiatric: Cooperative, appropriate mood and affect Objective Labs 08/15/25 05:08 08/15/25 12:52 Labs: Laboratory Results - last 24 hr 08/14/25 08/15/25 11:55 05:08 WBC 20.5 H RBC 3.79 L Hgb 11.2 L Hct 34.4 L MCV 91 MCH 29.6 MCHC 32.6 RDW Std Deviation 51.8 H Plt Count 360 Neut % (Auto) 62 Lymph % (Auto) 11 [place] % (Auto) 5 Eos % (Auto) 5 Baso % (Auto) 0 Neut # (Auto) 12.6 H Lymph # (Auto) 2.2 [place] # (Auto) 1.1 H Eos # (Auto) 1.0 H Baso # (Auto) 0.1 Immature Gran # (Auto) 3.55 H Absolute Nucleated RBC 0.03 H Immature Gran % 17 H Nucleated RBC % 0 Sodium 144 142 Potassium 3.3 L 3.5 Chloride 105 102 Carbon Dioxide 27.5 30.4 Anion Gap 12 10 BUN 12 Creatinine 0.5 L Estim Creat Clear Calc 77.3 eGFR > 60 BUN/Creatinine Ratio 24 H Glucose 187 H Calculated Osmolality 287 Calcium 8.2 L Corrected Calcium 9.1 Phosphorus 4.1 Magnesium 2.0 Total Bilirubin 0.3 AST 13 ALT < 7 L Alkaline Phosphatase 186 H Total Protein 5.8 Albumin 2.9 L Globulin 2.9 Albumin/Globulin Ratio 1.0 L ABG Interpretation ABG results: 08/11/25 13:49 ABG pH 7.27 L ABG pCO2 39 ABG pO2 185 H ABG HCO3 18 L ABG O2 Saturation 100 H ABG Base Excess -9 L Quality Measures Quality Measures VTE prophylaxis Advance care planning discussed with:: patient and child Assessment & Plan Assessment Current Active Medications: Generic Name Dose Route Start Last Admin Trade Name Freq PRN Reason Stop Dose Admin Hydrocodone Bitart/Acetaminophen 1 tab 08/13/25 12:11 08/15/25 08:14 Hydrocodone/Apap 7.5/325 Tablet PO 08/18/25 12:10 1 tab Q4HR PRN Administration PAIN SCALE 4-10(Mod-Sev Heparin Sodium (Porcine) 5,000 unit 08/08/25 21:00 08/11/25 09:19 Heparin Sod Inj 5000 Unit/Ml Vial SC 08/22/25 20:59 Not Given On Hold: 08/11/25 16:24 BID SHAWNA Hydromorphone HCl 0.5 mg 08/13/25 12:12 08/15/25 02:56 Hydromorphone Inj 2 Mg/Ml Vial IVP 08/17/25 08:58 0.5 mg Q4HR PRN Administration BREAKTHROUGH PAIN (SEVERE) Piperacillin Sod/Tazobactam 100 mls @ 25 mls/hr 08/09/25 14:00 08/15/25 05:48 Sod 4.5 gm/ Sodium Chloride IV 08/16/25 13:59 25 mls/hr Q8HR SHAWNA Administration Protocol Fat Emulsion Intravenous 500 mls @ 32 mls/hr 08/13/25 18:00 08/13/25 18:12 Intralipid 20% Iv IV 09/12/25 17:59 32 mls/hr [email or web address] SHAWNA Administration Potassium Phosphate 30 mmol/ 2,020 mls @ 60 mls/hr 08/14/25 18:00 08/14/25 17:39 Multivitamins/Minerals 10 ml/ IV 08/15/25 17:59 60 mls/hr Amino Acids/Electrolytes .Q24H SHAWNA Administration Insulin Human Regular 0 unit 08/13/25 00:00 08/15/25 05:54 Insulin Hum Regular 1 Unit/0.01 Ml (Per Unit) SC 09/12/25 00:00 4 unit Q6HR SHAWNA Administration Protocol Ondansetron HCl 4 mg 08/08/25 20:59 Ondansetron Inj 2 Mg/Ml Inj 2 Ml IVP 09/07/25 20:58 Q6H PRN NAUSEA OR VOMITING Protocol Pharmacy Consult 1 each 08/12/25 13:20 Pha To Consult Parenteral Nutr 1 Each Each XX 09/11/25 13:19 PRN PRN CONSULT Plan Carla Washington 65F pmhx significant for invasive adenocarcinoma of ascending colon s/p ex lap R hemicolectomy and ilio transverse anastomosis 07/21, prediabetes, anemia presented to [facility] ED on 08/08 with one day of high fevers of 103 deg and vomiting green bilious and one day of burning on urination, admitted for large abdominal abscess, pelvic abscess and UTI. Course complicated by leakage of fecal matter through previous surgical incision site, underwent ex lap with resection of small bowel takedown of anastomosis and diverting ileostomy on 08/11 for multiple small bowel lacerations. #Multiple small bowel lacerations s/p ex lap and resection of small bowl and takedown of anastomosis and diverting ileostomy 08/11 #Invasive adenocarcinoma of ascending colon s/p ex lap R hemicolectomy and ilio transverse anastomosis 07/21 #Abdominal abscess s/p IR drainage 08/10 #Pelvic abscess s/p IR drainage 08/09 Presented with 1 day of high fevers of 103 degrees and 3 episodes of bilious green vomiting. Patient admitted recently from 07/18- 08/05 for abdominal pain, found to have invasive adenocarcinoma s/p ex lap, given TPN through central line at the time. Patient's hospital course at that time was prolonged by E. coli bacteremia and Enterococcus and Pseudomonas UTI, treated w abx. On current admission, febrile temperature 103.9, tachycardic 140, tachypneic 25. WBC 13.7, Pro-Gonzalez elevated 1.7. NG tube placed on admission. CXR bibasilar PNA per read unchanged from previous admission. s/p 3L of fluid in ED. BCx [id number] Overnight on 08/10 to 08/11, primary team notified regarding stool leaking from incision site of previous surgery on 07/21. Ex lap done 08/11 showing multiple small bowel lacerations proximal to anastomosis which was intact. Small bowel was resected which involved most of the ileum and the jejunal ileal junction was chosen for site to free ileostomy. Abdominal wound extensively irrigated and washed out. Incision was left open for secondary closure. During procedure, patient received 2 units PRBC and 1 dose of TXA. 08/08 CTAP; large abscess and soft tissue abdominal wall 16 x 8 x 4.5 cm, prominent colonic and small bowel ileus, suspicious for 8 x 8 cm pelvic abscess. Flagyl (08/08), Cipro (08/08), s/p albumin 50 g (08/09), Vanc (08/09-08/13), Micafungin (08/09-08/13), L PICC placed and TPN started 08/12 08/15: Elevated WBC 20.5 Plan: - Zosyn 4.5 g q8h IV (08/08- ) - Surgery consulted, recs appreciated - Dietitian consulted, recs appreciated: D20% AA5% at 60 mL/hr with 500 mL 20% lipids 3x/wk, add MVI with minerals QD, folate 1 mg if not in MVI, B12 500-1000 mcg QD, D3 3000-600 IU QD, Zinc 220 QD for 2 weeks - Advancing diet as tolerated (dysphagia 2 + Ensure) - TPN, q6h blood glucose checks and SSI q6h - [place] 7.5 q4h prn and Dilaudid 0.5 mg q4h prn for pain #Colonic and small bowel ileus CTAP findings as above. Plan: - Continue ileostomy bag maintenance #Hypernatremia - resolved #Hypokalemia, Resolving - resolved Plan: - Replete and recheck as necessary #Pyuria #Dysuria - resolved Reported 1 day of burning on urination. UA 1+ protein, trace blood, +LE, RBC 4, WBC 30. UCx negative. Plan: - CTM for urinary symptoms - Currently on Zosyn #Sinus tachycardia - resolved Initial EKG sinus tachycardia with short [place] interval rate 135, QTc 496. Likely 2/2 pain and abscess. Plan: - Med tele for monitoring - Abx as above #Normocytic anemia - stable Likely 2/2 chronic disease of adenocarcinoma. Denies melena, hematochezia or hematemasis. s/p 2 pRBC during surgery Hgb stable Plan: - CTM with daily CBC Checklist Dispo: post op day 4, TPN, advancing diet as tolerating Lines: PIV, L PICC Diet: Dysphagia 2, Ensure Bowel Reg: n/a VTE ppx: SCD GI ppx: n/a Pain mgmt: [place] 7 q4h PRN, dialudid 0.5 mg IV q4h PRN Code status: full Plan discussed with Dr. Richy Finch and Dr. Juana Short MD PGY1 Attending Provider Attestation/Addendum I Herberth Finch MD reviewed the note and agree with the resident's assessment & plan with modifications/additions/exceptions as below. I have personally reviewed labs, imaging, home meds/prior records, examined the patient, formulated and discussed management plan with the IM team. 65-year-old female admitted for hemicolectomy for colorectal cancer however developed intra-abdominal abscess s/p failed CT-guided drainage and had repeat exploratory laparotomy on 08/11/2025 with wound cultures growing Klebsiella. Patient is hemodynamically stable, has persistent leukocytosis, continue Zosyn, continue TPN, diet as guided by general surgery team. Once patient has improved we will consult oncology for further management.
--- NOTE | 2025-08-15 09:52 | PD.SURPROG ---
Documentation for date of: 08/15/25 Subjective Subjective Narrative: Patient is seen and examined. She is resting comfortably, her pain is improving. She is tolerating clear liquids Exam Vital Signs Temp Pulse Resp BP Pulse Ox O2 Del Method O2 Flow Rate 97.1 F 86 17 127/82 95 Room Air 3 08/15/25 07:59 08/15/25 07:59 08/15/25 07:59 08/15/25 07:59 08/15/25 07:59 08/15/25 07:59 08/11/25 17:05 Constitutional Constitutional: no acute distress Routine Abdominal Exam Comments: Abdomen is soft and nondistended., No drainage or bleeding from the incision. Ileostomy is functioning Assessment & Plan Plan Continue IV antibiotics and routine ileostomy care. Advance diet PROCEDURES: Procedures Explored laparotomy and resection of the small bowel and takedown of the anastomosis and diverting ileostomy
[2025-08-15 12:17] LABS: Path Review Blood Smear Sent to Pathologist
[2025-08-15 13:47] LABS: Anion Gap 9 (7-16); Carbon Dioxide 29.6 mMol/L (20.0-31.0); Chloride 100 mMol/L (98-107); Potassium 3.6 mMol/L (3.4-5.1); Sodium 139 mMol/L (136-145)
[2025-08-16] VITALS (10 sets, daily range): BP systolic 124–148; BP diastolic 77–87; PULSE 79–104; RESP 16–20; TEMP 36.1–36.9; O2SAT 92–98; BMI 23.1
[2025-08-16] MEDS: PIPER/TAZO INJ 4.5 GM in SODIUM CHLORIDE 0.9% (POP) 100 ML IV (05:07)
[2025-08-16] MEDS: INSULIN HUM REGULAR 1 UNIT/0.01 ML (PER UNIT) SC ×4 (05:10→23:09)
[2025-08-16] MEDS: HYDROcodone/APAP 7.5/325 TABLET 1 TAB PO ×4 (05:16→18:57)
[2025-08-16 05:34] LABS: Basophils # (Auto) 0.3 Thou/mm3 (0.0-0.2); Basophils % (Auto) 1 % (0-2.5); Eosinophils # (Auto) 1.3 Thou/mm3 (0.0-0.5); Eosinophils % (Auto) 6 % (0-10); Hematocrit 35.1 % (36.0-46.0); Hemoglobin 11.7 g/dL (12.0-16.0); Immature Granulocytes Auto 3.23 Thou/mm3 (0.00-0.00); Lymphocytes # (Auto) 2.7 Thou/mm3 (1.0-4.8); Lymphocytes % (Auto) 12 % (10-50); Mean Corpuscular HGB Conc 33.3 g/dl (31.0-37.0); Mean Corpuscular Hemoglobin 30.2 pg (25.0-35.0); Mean Corpuscular Volume 91 fL (80-100); Monocytes # (Auto) 1.6 Thou/mm3 (0.0-0.8); Monocytes % (Auto) 7 % (0-12); Neutrophils # (Auto) 12.8 Thou/mm3 (1.8-7.7); Neutrophils % (Auto) 58 % (37-80); Nucleated Red Blood Cell # 0.00 Thou/mm3 (0.00-0.00); Nucleated Red Blood Cell % 0 /100 WBC (0); Platelet Count 393 Thou/mm3 (140-440); RDW Standard Deviation 50.7 fL (36.4-46.3); Red Blood Count 3.87 Miln/mm3 (4.00-5.20); White Blood Count 21.9 Thou/mm3 (3.6-11.0)
[2025-08-16 06:22] LABS: Alanine Aminotransferase < 7 U/L (10-49); Albumin, Serum 3.2 gm/dL (3.4-4.8); Albumin/Globulin Ratio 1.0 (1.2-2.2); Alkaline Phosphatase 229 U/L (46-116); Anion Gap 9 (7-16); Aspartate Amino Transferase 18 U/L (0-34); BUN/Creatinine Ratio 30 Ratio (12-20); Bilirubin,Total 0.4 mg/dL (0.3-1.2); Blood Urea Nitrogen 18 mg/dL (9-23); Calcium 8.8 mg/dL (8.3-10.6); Calcium (Corrected) 9.4 mg/dL (8.5-10.1); Carbon Dioxide 29.4 mMol/L (20.0-31.0); Chloride 100 mMol/L (98-107); Creatinine (Component) 0.6 mg/dL (0.6-1.3); Estimated Creatinine Clearance 64.4 mL/min (>60); Globulin 3.3 gm/dL (2.3-3.5); Glucose 167 mg/dL (74-106); Magnesium 2.2 mg/dL (1.6-2.6); Osmolality,Calculated 281 (275-295); Phosphorous 4.3 mg/dL (2.4-5.1); Potassium 4.0 mMol/L (3.4-5.1); Sodium 138 mMol/L (136-145); Total Protein 6.5 gm/dL (5.7-8.2); eGFR > 60 See Note
--- NOTE | 2025-08-16 08:23 | ESPR_ITS ---
<Statement entered by Heidi Finch MD - 08/16/25 16:14> Pt is seen at bedside. Continues to have abdominal pain at the site of surgery, there is a small wound dehiscence which was irrigated and packed by surgery as well as wound care was done. Pt continues to tolerate liquid diet and has regular bowel movements. Will continue TPN as well continue oral diet. Patient completed course of Zosyn today 08/16, per surgery recommendation will continue IV antibiotics with cefazolin as the peritoneal fluid grew Klebsiella. Patient was seen and examined by me personally. I have directly supervised and reviewed documentation by the team resident and agree with its findings. ------- Plan of care was discussed with the attending, Dr. Livier Finch, PGY-2 Documentation for date of: 08/16/25 Subjective Subjective Interval history: NAEO. Advancing diet per Dr. Aguilar, tolerating well without nausea or vomiting. Continued RLQ abdominal pain at site of open wound. Ileostomy draining dark luciano yellow liquid, no clots appreciated. Exam Vital Signs Temp Pulse Resp BP Pulse Ox O2 Del Method O2 Flow Rate 97.0 F 79 18 145/86 H 98 Nasal Cannula 3 08/16/25 07:58 08/16/25 07:58 08/16/25 07:58 08/16/25 07:58 08/16/25 07:58 08/16/25 07:58 08/11/25 17:05 Narrative Exam General: No acute distress, well nourished Eye: PERRL, EOMI, normal conjunctiva, no scleral icterus HENT: Normocephalic, atraumatic, normal hearing, moist oral mucosa Neck: Supple, non-tender, no JVD, no lymphadenopathy Lungs: Clear to auscultation bilaterally, non-labored respirations, symmetric chest rise, no use of accessory muscles Heart: Normal S1 and S2, no S3 or S4 appreciated. Normal rate and regular rhythm, no murmurs, rubs gallops, or edema. Peripheral pulses intact bilaterally, capillary refill brisk distally Abdomen: Some TTP of RLQ. Open wound RLQ clean without erythema or warmth, ileostomy bag in place draining dark luciano yellow liquid without clots Musculoskeletal: Normal range of motion and strength, no tenderness or swelling Skin: Skin is warm, dry, no rashes or lesions. Neurologic: Alert, awake and oriented x3. CN II-XII grossly intact. No focal neuro deficits. No signs of meningeal irritation noted. Psychiatric: Cooperative, appropriate mood and affect Objective Labs 08/16/25 05:00 08/16/25 14:10 Labs: Laboratory Results - last 24 hr 08/15/25 08/15/25 08/16/25 05:08 12:52 05:00 WBC 21.9 H RBC 3.87 L Hgb 11.7 L Hct 35.1 L MCV 91 MCH 30.2 MCHC 33.3 RDW Std Deviation 50.7 H Plt Count 393 D Neut % (Auto) 58 Lymph % (Auto) 12 [place] % (Auto) 7 Eos % (Auto) 6 Baso % (Auto) 1 Neut # (Auto) 12.8 H Lymph # (Auto) 2.7 [place] # (Auto) 1.6 H Eos # (Auto) 1.3 H Baso # (Auto) 0.3 H Immature Gran # (Auto) 3.23 H Absolute Nucleated RBC 0.00 Immature Gran % 15 H Nucleated RBC % 0 Smear Path Review Sent to Pathologist Sodium 139 138 Potassium 3.6 4.0 Chloride 100 100 Carbon Dioxide 29.6 29.4 Anion Gap 9 9 BUN 18 Creatinine 0.6 Estim Creat Clear Calc 64.4 eGFR > 60 BUN/Creatinine Ratio 30 H Glucose 167 H Calculated Osmolality 281 Calcium 8.8 Corrected Calcium 9.4 Phosphorus 4.3 Magnesium 2.2 Total Bilirubin 0.4 AST 18 ALT < 7 L Alkaline Phosphatase 229 H D Total Protein 6.5 Albumin 3.2 L Globulin 3.3 Albumin/Globulin Ratio 1.0 L ABG Interpretation ABG results: 08/11/25 13:49 ABG pH 7.27 L ABG pCO2 39 ABG pO2 185 H ABG HCO3 18 L ABG O2 Saturation 100 H ABG Base Excess -9 L Quality Measures Quality Measures VTE prophylaxis Advance care planning discussed with:: patient and child Assessment & Plan Assessment Current Active Medications: Generic Name Dose Route Start Last Admin Trade Name Freq PRN Reason Stop Dose Admin Hydrocodone Bitart/Acetaminophen 1 tab 08/13/25 12:11 08/16/25 05:16 Hydrocodone/Apap 7.5/325 Tablet PO 08/18/25 12:10 1 tab Q4HR PRN Administration PAIN SCALE 4-10(Mod-Sev Heparin Sodium (Porcine) 5,000 unit 08/08/25 21:00 08/11/25 09:19 Heparin Sod Inj 5000 Unit/Ml Vial SC 08/22/25 20:59 Not Given On Hold: 08/11/25 16:24 BID SHAWNA Hydromorphone HCl 0.5 mg 08/13/25 12:12 08/15/25 02:56 Hydromorphone Inj 2 Mg/Ml Vial IVP 08/17/25 08:58 0.5 mg Q4HR PRN Administration BREAKTHROUGH PAIN (SEVERE) Piperacillin Sod/Tazobactam 100 mls @ 25 mls/hr 08/09/25 14:00 08/16/25 05:07 Sod 4.5 gm/ Sodium Chloride IV 08/16/25 13:59 25 mls/hr Q8HR SHAWNA Administration Protocol Fat Emulsion Intravenous 500 mls @ 32 mls/hr 08/13/25 18:00 08/13/25 18:12 Intralipid 20% Iv IV 09/12/25 17:59 32 mls/hr [email or web address] SHAWNA Administration Potassium Chloride 40 meq/ 2,034 mls @ 60 mls/hr 08/15/25 18:00 08/15/25 17:43 Magnesium Sulfate 2 gm/ IV 08/16/25 17:59 60 mls/hr Multivitamins/Minerals 10 ml/ .Q24H SHAWNA Administration Amino Acids/Electrolytes Insulin Human Regular 0 unit 08/13/25 00:00 08/16/25 05:10 Insulin Hum Regular 1 Unit/0.01 Ml (Per Unit) SC 09/12/25 00:00 2 unit Q6HR SHAWNA Administration Protocol Ondansetron HCl 4 mg 08/08/25 20:59 Ondansetron Inj 2 Mg/Ml Inj 2 Ml IVP 09/07/25 20:58 Q6H PRN NAUSEA OR VOMITING Protocol Pharmacy Consult 1 each 08/12/25 13:20 Pha To Consult Parenteral Nutr 1 Each Each XX 09/11/25 13:19 PRN PRN CONSULT Plan Carla Washington 65F pmhx significant for invasive adenocarcinoma of ascending colon s/p ex lap R hemicolectomy and ilio transverse anastomosis 07/21, prediabetes, anemia presented to [facility] ED on 08/08 with one day of high fevers of 103 deg and vomiting green bilious and one day of burning on urination, admitted for large abdominal abscess, pelvic abscess and UTI. Course complicated by leakage of fecal matter through previous surgical incision site, underwent ex lap with resection of small bowel takedown of anastomosis and diverting ileostomy on 08/11 for multiple small bowel lacerations. #Multiple small bowel lacerations s/p ex lap and resection of small bowl and takedown of anastomosis and diverting ileostomy 08/11 #Invasive adenocarcinoma of ascending colon s/p ex lap R hemicolectomy and ilio transverse anastomosis 07/21 #Abdominal abscess s/p IR drainage 08/10 #Pelvic abscess s/p IR drainage 08/09 #Wound dehiscence Presented with 1 day of high fevers of 103 degrees and 3 episodes of bilious green vomiting. Patient admitted recently from 07/18- 08/05 for abdominal pain, found to have invasive adenocarcinoma s/p ex lap, given TPN through central line at the time. Patient's hospital course at that time was prolonged by E. coli bacteremia and Enterococcus and Pseudomonas UTI, treated w abx. On current admission, febrile temperature 103.9, tachycardic 140, tachypneic 25. WBC 13.7, Pro-Gonzalez elevated 1.7. NG tube placed on admission. CXR bibasilar PNA per read unchanged from previous admission. s/p 3L of fluid in ED. BCx NG48h Overnight on 08/10 to 08/11, primary team notified regarding stool leaking from incision site of previous surgery on 07/21. Ex lap done 08/11 showing multiple small bowel lacerations proximal to anastomosis which was intact. Small bowel was resected which involved most of the ileum and the jejunal ileal junction was chosen for site to free ileostomy. Abdominal wound extensively irrigated and washed out. Incision was left open for secondary closure. During procedure, patient received 2 units PRBC and 1 dose of TXA. 08/08 CTAP; large abscess and soft tissue abdominal wall 16 x 8 x 4.5 cm, prominent colonic and small bowel ileus, suspicious for 8 x 8 cm pelvic abscess. Flagyl (08/08), Cipro (08/08), s/p albumin 50 g (08/09), Vanc (08/09-08/13), Micafungin (08/09-08/13), L PICC placed and TPN started 08/12 08/15: Elevated WBC 20.5 Plan: - Zosyn 4.5 g q8h IV (08/08-08/16) - Cefazolin 1 g IV q8h (08/16 - ) x 4-5 days - Surgery consulted, recs appreciated - Dietitian consulted, recs appreciated: D20% AA5% at 60 mL/hr with 500 mL 20% lipids 3x/wk, add MVI with minerals QD, folate 1 mg if not in MVI, B12 500-1000 mcg QD, D3 3000-600 IU QD, Zinc 220 QD for 2 weeks - Advancing diet as tolerated (dysphagia 2 + Ensure) - TPN, q6h blood glucose checks and SSI q6h - [place] 7.5 q4h prn and Dilaudid 0.5 mg q4h prn for pain #Colonic and small bowel ileus CTAP findings as above. Plan: - Continue ileostomy bag maintenance #Hypernatremia - resolved #Hypokalemia, Resolving - resolved Plan: - Replete and recheck as necessary #Pyuria #Dysuria - resolved Reported 1 day of burning on urination. UA 1+ protein, trace blood, +LE, RBC 4, WBC 30. UCx negative. Plan: - CTM for urinary symptoms - Abx as above #Sinus tachycardia - resolved Initial EKG sinus tachycardia with short [place] interval rate 135, QTc 496. Likely 2/2 pain and abscess. Plan: - Med tele for monitoring - Abx as above #Normocytic anemia - stable Likely 2/2 chronic disease of adenocarcinoma. Denies melena, hematochezia or hematemasis. s/p 2 pRBC during surgery Hgb stable Plan: - CTM with daily CBC Checklist Dispo: post op day 4, TPN, advancing diet as tolerating Lines: PIV, L PICC Diet: Dysphagia 2, Ensure Bowel Reg: n/a VTE ppx: SCD GI ppx: n/a Pain mgmt: [place] 7 q4h PRN, dialudid 0.5 mg IV q4h PRN Code status: full Plan discussed with Dr. Richy Finch and Dr. Juana Short MD PGY1 Attending Provider Attestation/Addendum Melody Rosales DO, attest that I was physically present for the [place] portions of the service and evaluated the patient with the resident and I reviewed and discussed the case with the resident and agree with the resident's findings and plans of care as documented above Patient seen and evaluated this afternoon. Patient was eating lunch at the time and states she was tolerating diet without issues. She denies fevers, chills, nausea, vomiting, chest pain or shortness of breath. Patient was then re- evaluated with surgeon at bedside. Patient is noted to have wound dehiscence, which is the suspected cause for leukocytosis. Patient completed 7 day course of IV zosyn. Will start on ancef as per surgeon's recommendations. Continue with wound care.
[2025-08-16] MEDS: HYDROmorphone INJ 2 MG/ML VIAL 0.5 MG IVP ×3 (11:55→21:04)
--- NOTE | 2025-08-16 14:09 | ESPR_ITS ---
Documentation for date of: 08/16/25 Subjective Subjective Brief History: Patient was readmitted with fever and chills from the longterm after discharge few days ago Narrative: Patient appears very depressed and crying. Over the weekend she was kept n.p.o. to avoid potential vomiting as well as the tiny leakage that might be happening at the site of ulceration patient is having bowel movements but unfortunately using [id number] pain medication Exam Vital Signs Temp Pulse Resp BP Pulse Ox O2 Del Method O2 Flow Rate 97.1 F 84 18 137/84 H 97 Room Air 3 08/16/25 11:45 08/16/25 12:00 08/16/25 11:45 08/16/25 11:45 08/16/25 11:45 08/16/25 11:45 08/11/25 17:05 Her vital signs are normal Routine Abdominal Exam Comments: Abdominal examination shows infection in the lower portion of the wound is under control with packing Results Results: Laboratory Laboratory Narrative: Laboratory results are returning to normal WBC Assessment & Plan Assessment Additional comments: Impression: Slow recovery following perforation of the stomach treated with closure Superficial wound infection Plan Plan: We shall continue present peripheral parenteral nutrition and start her on p.o. feedings. If she tolerated that then we can consider discharging her soon PROCEDURES: Procedures Explored laparotomy and resection of the small bowel and takedown of the anastomosis and diverting ileostomy
[2025-08-16 14:38] LABS: Anion Gap 8 (7-16); Carbon Dioxide 28.3 mMol/L (20.0-31.0); Chloride 98 mMol/L (98-107); Potassium 4.3 mMol/L (3.4-5.1); Sodium 134 mMol/L (136-145)
--- NOTE | 2025-08-16 14:49 | PC.SS ---
Rounding: TPN, open wound on IV ABX, DC plan LG
[2025-08-16] MEDS: ceFAZolin/D5W 1 GM IVPB 1 GM/50 ML BAG IV ×2 (15:10→21:06)
[2025-08-16] MEDS: FAT EMULSIONS 20% IV 500 ML 32 ML IV (17:29)
[2025-08-17] MEDS: HYDROcodone/APAP 7.5/325 TABLET 1 TAB PO ×5 (02:21→21:52)
[2025-08-17 04:00] VITALS: BP 137/82; PULSE 102; PULSE 91; RESP 20; TEMP 36.6; O2SAT 96
[2025-08-17] MEDS: ceFAZolin/D5W 1 GM IVPB 1 GM/50 ML BAG IV ×3 (05:23→21:47)
[2025-08-17] MEDS: INSULIN HUM REGULAR 1 UNIT/0.01 ML (PER UNIT) SC ×3 (05:25→18:29)
[2025-08-17 05:43] LABS: Basophils # (Auto) 0.1 Thou/mm3 (0.0-0.2); Basophils % (Auto) 0 % (0-2.5); Eosinophils # (Auto) 1.5 Thou/mm3 (0.0-0.5); Eosinophils % (Auto) 6 % (0-10); Hematocrit 35.5 % (36.0-46.0); Hemoglobin 11.4 g/dL (12.0-16.0); Immature Granulocytes Auto 2.47 Thou/mm3 (0.00-0.00); Lymphocytes # (Auto) 2.3 Thou/mm3 (1.0-4.8); Lymphocytes % (Auto) 9 % (10-50); Mean Corpuscular HGB Conc 32.1 g/dl (31.0-37.0); Mean Corpuscular Hemoglobin 28.8 pg (25.0-35.0); Mean Corpuscular Volume 90 fL (80-100); Monocytes # (Auto) 1.7 Thou/mm3 (0.0-0.8); Monocytes % (Auto) 7 % (0-12); Neutrophils # (Auto) 15.9 Thou/mm3 (1.8-7.7); Neutrophils % (Auto) 67 % (37-80); Nucleated Red Blood Cell # 0.00 Thou/mm3 (0.00-0.00); Nucleated Red Blood Cell % 0 /100 WBC (0); Platelet Count 410 Thou/mm3 (140-440); RDW Standard Deviation 50.8 fL (36.4-46.3); Red Blood Count 3.96 Miln/mm3 (4.00-5.20); White Blood Count 24.0 Thou/mm3 (3.6-11.0)
[2025-08-17 06:19] LABS: Alanine Aminotransferase < 7 U/L (10-49); Albumin, Serum 3.5 gm/dL (3.4-4.8); Albumin/Globulin Ratio 1.1 (1.2-2.2); Alkaline Phosphatase 255 U/L (46-116); Anion Gap 8 (7-16); Aspartate Amino Transferase 22 U/L (0-34); BUN/Creatinine Ratio 33 Ratio (12-20); Bilirubin,Total 0.3 mg/dL (0.3-1.2); Blood Urea Nitrogen 20 mg/dL (9-23); Calcium 9.0 mg/dL (8.3-10.6); Calcium (Corrected) 9.4 mg/dL (8.5-10.1); Carbon Dioxide 27.7 mMol/L (20.0-31.0); Chloride 96 mMol/L (98-107); Creatinine (Component) 0.6 mg/dL (0.6-1.3); Estimated Creatinine Clearance 63.0 mL/min (>60); Globulin 3.2 gm/dL (2.3-3.5); Glucose 186 mg/dL (74-106); Magnesium 2.3 mg/dL (1.6-2.6); Osmolality,Calculated 272 (275-295); Phosphorous 4.6 mg/dL (2.4-5.1); Potassium 4.4 mMol/L (3.4-5.1); Sodium 132 mMol/L (136-145); Total Protein 6.7 gm/dL (5.7-8.2); eGFR > 60 See Note
[2025-08-17 07:30] VITALS: PULSE 98
--- NOTE | 2025-08-17 07:57 | ESPR_ITS ---
<Statement entered by Heidi Finch MD - 08/17/25 17:17> Patient is seen at bedside son and [id number] are also at bedside. Patient states that she feels depressed because of her health. Patient underwent wound care with the surgeon yesterday. Patient has significant drainage of the wound the dehiscence. In the ileostomy bag had leaked and was replaced. Patient continues to tolerate oral diet. Will repeat CT to assess if there is reaccumulation of an abscess and decide on further plan with surgery. Will continue IV antibiotics and wound care. Surgery is following closely. Patient was seen and examined by me personally. I have directly supervised and reviewed documentation by the team resident and agree with its findings. ------- Plan of care was discussed with the attending, Dr. Livier Finch, PGY-2 Documentation for date of: 08/17/25 Subjective Subjective Interval history: NAEO. Patient reported continued 8/10 pain in RLQ at site of open wound. She has eaten small portions of her meals but develops nausea, no vomiting. Exam Vital Signs Temp Pulse Resp BP Pulse Ox O2 Del Method O2 Flow Rate 98 F 91 20 137/82 H 96 Room Air 3 08/17/25 04:00 08/17/25 04:00 08/17/25 04:00 08/17/25 04:00 08/17/25 04:00 08/17/25 04:00 08/11/25 17:05 Narrative Exam General: No acute distress, well nourished Eye: PERRL, EOMI, normal conjunctiva, no scleral icterus HENT: Normocephalic, atraumatic, normal hearing, moist oral mucosa Neck: Supple, non-tender, no JVD, no lymphadenopathy Lungs: Clear to auscultation bilaterally, non-labored respirations, symmetric chest rise, no use of accessory muscles Heart: Normal S1 and S2, no S3 or S4 appreciated. Normal rate and regular rhythm, no murmurs, rubs gallops, or edema. Peripheral pulses intact bilaterally, capillary refill brisk distally Abdomen: TTP of RLQ. Open wound RLQ clean without erythema or warmth, ileostomy bag in place draining brown liquid, necrotic stoma Musculoskeletal: Normal range of motion and strength, no tenderness or swelling Skin: Skin is warm, dry, no rashes or lesions. Neurologic: Alert, awake and oriented x3. CN II-XII grossly intact. No focal neuro deficits. No signs of meningeal irritation noted. Psychiatric: Cooperative, appropriate mood and affect Objective Labs 08/18/25 05:00 08/18/25 05:00 Labs: Laboratory Results - last 24 hr 08/16/25 08/16/25 08/17/25 12:32 14:10 05:19 WBC 24.0 H RBC 3.96 L Hgb 11.4 L Hct 35.5 L MCV 90 MCH 28.8 MCHC 32.1 RDW Std Deviation 50.8 H Plt Count 410 Neut % (Auto) 67 Lymph % (Auto) 9 L [place] % (Auto) 7 Eos % (Auto) 6 Baso % (Auto) 0 Neut # (Auto) 15.9 H Lymph # (Auto) 2.3 [place] # (Auto) 1.7 H Eos # (Auto) 1.5 H Baso # (Auto) 0.1 Immature Gran # (Auto) 2.47 H Absolute Nucleated RBC 0.00 Immature Gran % 10 H Nucleated RBC % 0 Sodium Cancelled 134 L 132 L Potassium Cancelled 4.3 4.4 Chloride Cancelled 98 96 L Carbon Dioxide Cancelled 28.3 27.7 Anion Gap Cancelled 8 8 BUN 20 Creatinine 0.6 Estim Creat Clear Calc 63.0 eGFR > 60 BUN/Creatinine Ratio 33 H Glucose 186 H Calculated Osmolality 272 L Calcium 9.0 Corrected Calcium 9.4 Phosphorus 4.6 Magnesium 2.3 Total Bilirubin 0.3 AST 22 ALT < 7 L Alkaline Phosphatase 255 H D Total Protein 6.7 Albumin 3.5 Globulin 3.2 Albumin/Globulin Ratio 1.1 L ABG Interpretation ABG results: 08/11/25 13:49 ABG pH 7.27 L ABG pCO2 39 ABG pO2 185 H ABG HCO3 18 L ABG O2 Saturation 100 H ABG Base Excess -9 L Quality Measures Quality Measures VTE prophylaxis Advance care planning discussed with:: patient and child Assessment & Plan Assessment Current Active Medications: Generic Name Dose Route Start Last Admin Trade Name Freq PRN Reason Stop Dose Admin Hydrocodone Bitart/Acetaminophen 1 tab 08/13/25 12:11 08/17/25 06:26 Hydrocodone/Apap 7.5/325 Tablet PO 08/18/25 12:10 1 tab Q4HR PRN Administration PAIN SCALE 4-10(Mod-Sev Heparin Sodium (Porcine) 5,000 unit 08/08/25 21:00 08/11/25 09:19 Heparin Sod Inj 5000 Unit/Ml Vial SC 08/22/25 20:59 Not Given On Hold: 08/11/25 16:24 BID SHAWNA Hydromorphone HCl 0.5 mg 08/13/25 12:12 08/16/25 21:04 Hydromorphone Inj 2 Mg/Ml Vial IVP 08/17/25 08:58 0.5 mg Q4HR PRN Administration BREAKTHROUGH PAIN (SEVERE) Fat Emulsion Intravenous 500 mls @ 32 mls/hr 08/13/25 18:00 08/16/25 17:29 Intralipid 20% Iv IV 09/12/25 17:59 32 mls/hr [email or web address] SHAWNA Administration Potassium Chloride 40 meq/ 2,034 mls @ 60 mls/hr 08/15/25 18:00 08/16/25 17:29 Magnesium Sulfate 2 gm/ IV 08/17/25 17:59 60 mls/hr Multivitamins/Minerals 10 ml/ .Q24H SHAWNA Administration Amino Acids/Electrolytes Cefazolin Sodium/Dextrose 1 gm in 50 mls @ 100 mls/hr 08/16/25 14:39 08/17/25 05:23 Ancef Ivpb IV 08/23/25 14:38 100 mls/hr Q8HR SHAWNA Administration Insulin Human Regular 0 unit 08/13/25 00:00 08/17/25 05:25 Insulin Hum Regular 1 Unit/0.01 Ml (Per Unit) SC 09/12/25 00:00 4 unit Q6HR SHAWNA Administration Protocol Ondansetron HCl 4 mg 08/08/25 20:59 Ondansetron Inj 2 Mg/Ml Inj 2 Ml IVP 09/07/25 20:58 Q6H PRN NAUSEA OR VOMITING Protocol Pharmacy Consult 1 each 08/12/25 13:20 Pha To Consult Parenteral Nutr 1 Each Each XX 09/11/25 13:19 PRN PRN CONSULT Plan Carla Washington 65F pmhx significant for invasive adenocarcinoma of ascending colon s/p ex lap R hemicolectomy and ilio transverse anastomosis 07/21, prediabetes, anemia presented to [facility] ED on 08/08 with one day of high fevers of 103 deg and vomiting green bilious and one day of burning on urination, admitted for large abdominal abscess, pelvic abscess and UTI. Course complicated by leakage of fecal matter through previous surgical incision site, underwent ex lap with resection of small bowel takedown of anastomosis and diverting ileostomy on 08/11 for multiple small bowel lacerations. #Multiple small bowel lacerations s/p ex lap and resection of small bowl and takedown of anastomosis and diverting ileostomy 08/11 #Invasive adenocarcinoma of ascending colon s/p ex lap R hemicolectomy and ilio transverse anastomosis 07/21 #Abdominal abscess s/p IR drainage 08/10 #Pelvic abscess s/p IR drainage 08/09 #Wound dehiscence #Leukocytosis - uptrending Previous hospitalization 07/18-08/05: diagnosed invasive adenocarcinoma s/p ex lap, started TPN. c/b E coli bacteremia, Enterococcus and Pseudomonas UTI; stool leaking from incision site 07/21 Initial presentation current hospitalization: fever Tmax 103, bilious vomiting 08/08 CTAP; large abscess and soft tissue abdominal wall 16 x 8 x 4.5 cm, prominent colonic and small bowel ileus, suspicious for 8 x 8 cm pelvic abscess. Ex lap 08/11: small bowel lacerations proximal to anastamosis; small bowel (ileal) resection, ileostomy placed at ileal jejunal junction. Incision left open for secondary closure. Received 2U pRBC and 1 dose TXA during surgery Management completed: - Flagyl (08/08) - Cipro (08/08) - Vanc (08/09-08/13) - Micafungin (08/09-08/13) - Zosyn (08/08-08/16) - Cefazolin (08/16 - ) L PICC placed and TPN started 08/12 Plan: - Cefazolin 1 g IV q8h (08/16 - ) x 4-5 days - Pending repeat blood cultures and CT a/p given uptrending leukocytosis - Surgery consulted, recs appreciated - Dietitian consulted, recs appreciated: D20% AA5% at 60 mL/hr with 500 mL 20% lipids 3x/wk, add MVI with minerals QD, folate 1 mg if not in MVI, B12 500-1000 mcg QD, D3 3000-600 IU QD, Zinc 220 QD for 2 weeks - Advancing diet as tolerated (dysphagia 2 + Ensure) - TPN, q6h blood glucose checks and SSI q6h - [place] 7.5 q4h prn and Dilaudid 0.5 mg q4h prn for pain #Colonic and small bowel ileus CTAP findings as above Plan: - Continue ileostomy bag maintenance #Hypernatremia - resolved #Hypokalemia - resolved Plan: - Replete and recheck as necessary #Pyuria #Dysuria - resolved Reported 1 day of burning on urination. UA 1+ protein, trace blood, +LE, RBC 4, WBC 30. UCx negative. Plan: - CTM for urinary symptoms - Abx as above #Sinus tachycardia - resolved Initial EKG sinus tachycardia with short [place] interval rate 135, QTc 496. Likely 2/2 pain and abscess. Plan: - Med tele for monitoring - Abx as above #Normocytic anemia - stable Likely 2/2 chronic disease of adenocarcinoma. Denies melena, hematochezia or hematemasis. s/p 2 pRBC during surgery Hgb stable Plan: - CTM with daily CBC Checklist Dispo: Advancing diet as tolerating, on TPN Lines: PIV, L PICC Diet: Dysphagia 2, Ensure Bowel Reg: n/a VTE ppx: SCD GI ppx: n/a Pain mgmt: [place] 7 q4h PRN, dialudid 0.5 mg IV q4h PRN Code status: full Plan discussed with Dr. Richy Finch and Dr. Livier Short MD PGY1 Attending Provider Attestation/Addendum Melody Rosales, DO, attest that I was physically present for the [place] portions of the service and evaluated the patient with the resident and I reviewed and discussed the case with the resident and agree with the resident's findings and plans of care as documented above Patient seen and eval this a.m. Family members at bedside and states that the patient has been quite tearful and discouraged. She states that she is depressed since she understands that she has quite a complicated surgical process. This morning, ileostomy had leaked into the wound. Discussed with wound care nurse. Will continue with frequent wound care. Encourage patient to sit up in chair and use incentive spirometer. WBCs continue to uptrend. Will obtain CT abdomen pelvis to rule out any other abscess formation that may be causing uptrending WBC.
[2025-08-17 08:00] VITALS: BP 137/81; PULSE 98; RESP 22; TEMP 36.6; O2SAT 97
[2025-08-17 09:00] VITALS: BMI 23.1
--- NOTE | 2025-08-17 11:00 | PC.NURSE ---
Pt's wound draining all over the bed. ostomy bag leaking on patient's skin and bed. Contacted wound nurse Smiley. Wound nurse came to bedside. Cleaned wound and changed ostomy bag. Dr. Suggs made aware.
[2025-08-17 12:00] VITALS: BP 140/91; PULSE 93; RESP 21; TEMP 36.8; O2SAT 97
--- NOTE | 2025-08-17 14:02 | XR_ITS ---
Examination: CT abdomen and pelvis without contrast. Coronal 3-D reconstructions. Sagittal 2-D reconstructions. Date and time of exam: 08/17/2025, 5:03 p.m. INDICATION: Lower abdominal pain, drainage from wound for 1 week, increasing leukocytosis. Abdominal wound dehiscence. COMPARISON: CT abdomen/pelvis 08/10/2025. CTDI: vol (mGy): 5.93 DLP: (mGycm): 320 Technique: Axial images of the abdomen have been obtained, 3 mm slice thickness Intravenous contrast material has not been administered. Low dose protocols were performed. One or more of the following dose reduction techniques were used; automated exposure control, adjustment of the mA and/or KV according to patient size, use of iterative reconstruction technique. Findings: The examination is limited without IV and oral contrast. Lower thorax: Persistent left lower lobe consolidation/atelectasis. Previously visualized very small left-sided pleural effusion has nearly resolved. Mild right basilar atelectasis persists. No right-sided pleural effusion. Heart size is within normal limits. Minimal pericardial fluid, improved compared to prior CT. Abdomen/pelvis: Postoperative changes of bowel are identified, including interim creation of a left-sided ileostomy and further partial colectomy to the mid transverse colon level. There is extensive mesenteric edema. There has been interval placement of a new right lower quadrant percutaneous drainage catheter with its tip extending across midline and then back to the right of midline and terminating along the anterior abdominal wall at the level of the kidneys. The previously visualized large complex collection in the right hemiabdomen extending across midline to the left lower quadrant has significantly decreased in size. This is interposed between small bowel and right kidney, extending into the right lower quadrant. Residual fluid here measures approximately 4.0 x 1.3 cm in transaxial dimensions (axial image 116), and approximately 7.4 cm in craniocaudal dimension (coronal image 67). The previously visualized anterior approach left-sided pigtail drainage catheter within the large complex collection is longer seen. The fluid collection at region is no longer present. There is a new very mild degree of fluid interposed between the left lower quadrant abdominal wall and small bowel, triangular-in shape on axial imaging, measuring approximately 3.5 x 0.9 cm (axial image 134) and approximately 3.2 cm in greater pole dimension (coronal image 50). There is moderate distention of the stomach with liquid. There is mild distention of the duodenal bulb which shows mild mural thickening, in part of the descending duodenum. The transverse duodenum is decompressed. There are mildly distended proximal jejunal loops. The remainder of the small bowel is not distended. Residual colon shows extensive diverticulosis but no evidence for acute diverticulitis. No free air is seen. Large anterior abdominal wound is present, greater on the right side. Multiple anterior skin jose l are present at midline extending peripherally to the left. The liver is mildly enlarged but demonstrates relatively smooth contours and homogeneous attenuation. Postcholecystectomy biliary ductal dilatation is present. The common bile duct demonstrates smooth distal tapering without evidence for obstructing hyperdense calculus or apparent mass. The pancreas, spleen and adrenal glands are unremarkable. No urinary tract calculi or acute obstructive uropathy. A small focus of gas in the bladder could be due to recent instrumentation. No bladder wall thickening. The uterus is unremarkable. No ovarian masses. Normal caliber abdominal aorta with minimal calcific plaque. 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 Musculoskeletal: No acute fractures or aggressive bone lesions. Mild grade 1 degenerative anterolisthesis of L4 over L5 is present. Mild lumbar levoscoliosis. Findings compatible with diffuse idiopathic skeletal hyperostosis (DISH) in the partially imaged thoracic spine. IMPRESSION: Extensive postoperative changes as described above, including new left-sided ileostomy as well as partial colectomy to the mid transverse colon. No bowel obstruction. Significant interval decrease in size of large complex fluid collection on the right extending across midline and resolution of previously visualized complex fluid collection on the left extending across midline. Residual and new small amounts of fluid are present bilaterally as detailed above. No free air. Residual opacification at both lung bases, greater on the left, and interval improvement in previously seen very small left-sided pleural effusion and pericardial effusion.
[2025-08-17] MEDS: MORPHINE SULF INJ 4 MG/ML VIAL 2 MG IVP (15:47)
[2025-08-17 16:00] VITALS: BP 141/86; PULSE 97; RESP 21; TEMP 36.6; O2SAT 97
[2025-08-17] MEDS: AMINO ACID IV (18:30)
[2025-08-17] MEDS: [UNRECOGNIZED DRUG - OTHER] IV (18:30)
[2025-08-17] MEDS: MULTIVITAMIN IV (18:30)
[2025-08-17] MEDS: SODIUM CHLOR ADDITIVE IV (18:30)
[2025-08-17 20:00] VITALS: BP 141/91; PULSE 101; PULSE 103; RESP 18; TEMP 36.6; O2SAT 97
[2025-08-18] VITALS: BP 138/88; PULSE 103; PULSE 83; RESP 15; TEMP 36.4; O2SAT 95
[2025-08-18] MEDS: INSULIN HUM REGULAR 1 UNIT/0.01 ML (PER UNIT) SC ×5 (00:14→23:53)
[2025-08-18 04:00] VITALS: BP 147/80; PULSE 72; PULSE 94; RESP 19; TEMP 36.4; O2SAT 94
[2025-08-18] MEDS: HYDROcodone/APAP 7.5/325 TABLET 1 TAB PO ×4 (04:10→20:47)
[2025-08-18] MEDS: ceFAZolin/D5W 1 GM IVPB 1 GM/50 ML BAG IV ×3 (05:06→21:52)
[2025-08-18 05:51] LABS: Basophils # (Auto) 0.2 Thou/mm3 (0.0-0.2); Basophils % (Auto) 1 % (0-2.5); Eosinophils # (Auto) 1.0 Thou/mm3 (0.0-0.5); Eosinophils % (Auto) 5 % (0-10); Hematocrit 35.4 % (36.0-46.0); Hemoglobin 11.6 g/dL (12.0-16.0); Immature Granulocytes Auto 1.66 Thou/mm3 (0.00-0.00); Lymphocytes # (Auto) 2.3 Thou/mm3 (1.0-4.8); Lymphocytes % (Auto) 11 % (10-50); Mean Corpuscular HGB Conc 32.8 g/dl (31.0-37.0); Mean Corpuscular Hemoglobin 29.5 pg (25.0-35.0); Mean Corpuscular Volume 90 fL (80-100); Monocytes # (Auto) 1.8 Thou/mm3 (0.0-0.8); Monocytes % (Auto) 9 % (0-12); Neutrophils # (Auto) 13.2 Thou/mm3 (1.8-7.7); Neutrophils % (Auto) 65 % (37-80); Nucleated Red Blood Cell # 0.00 Thou/mm3 (0.00-0.00); Nucleated Red Blood Cell % 0 /100 WBC (0); Platelet Count 457 Thou/mm3 (140-440); RDW Standard Deviation 52.1 fL (36.4-46.3); Red Blood Count 3.93 Miln/mm3 (4.00-5.20); White Blood Count 20.3 Thou/mm3 (3.6-11.0)
[2025-08-18 06:26] LABS: Alanine Aminotransferase < 7 U/L (10-49); Albumin, Serum 3.6 gm/dL (3.4-4.8); Albumin/Globulin Ratio 1.0 (1.2-2.2); Alkaline Phosphatase 291 U/L (46-116); Anion Gap 10 (7-16); Aspartate Amino Transferase 24 U/L (0-34); BUN/Creatinine Ratio 42 Ratio (12-20); Bilirubin,Total 0.3 mg/dL (0.3-1.2); Blood Urea Nitrogen 21 mg/dL (9-23); Calcium 9.4 mg/dL (8.3-10.6); Calcium (Corrected) 9.7 mg/dL (8.5-10.1); Carbon Dioxide 27.2 mMol/L (20.0-31.0); Chloride 96 mMol/L (98-107); Creatinine (Component) 0.5 mg/dL (0.6-1.3); Estimated Creatinine Clearance 75.4 mL/min (>60); Globulin 3.5 gm/dL (2.3-3.5); Glucose 184 mg/dL (74-106); Magnesium 2.0 mg/dL (1.6-2.6); Osmolality,Calculated 274 (275-295); Phosphorous 4.8 mg/dL (2.4-5.1); Potassium 4.3 mMol/L (3.4-5.1); Sodium 133 mMol/L (136-145); Total Protein 7.1 gm/dL (5.7-8.2); eGFR > 60 See Note
[2025-08-18 08:00] VITALS: BP 154/95; PULSE 92; PULSE 97; RESP 19; TEMP 36.6; O2SAT 97
[2025-08-18 09:00] VITALS: BMI 23.3
--- NOTE | 2025-08-18 09:31 | ESPR_ITS ---
<Statement entered by Heidi Finch MD - 08/19/25 17:08> Patient is seen at bedside. Patient is in significant pain and is given Dilaudid x 1. Patient was seen by surgery who recommended patient will likely need a wound VAC and an acute rehab for intense PT. Will continue TPN there is minimal drainage at the wound site. Will continue cefazolin for 1 more day. Will discuss LTAC with patient's son. Patient was seen and examined by me personally. I have directly supervised and reviewed documentation by the team resident and agree with its findings. ------- Plan of care was discussed with the attending, Dr. Livier Finch, PGY-2 Documentation for date of: 08/18/25 Subjective Subjective Interval history: NAEO. Patient's son at bedside. Discussed results of CT a/p. Patient has been able to eat small amounts but requested transfer to chair for meals. Endorses nausea but no vomiting. Continues to have RLQ pain at site of wound. Exam Vital Signs Temp Pulse Resp BP Pulse Ox O2 Del Method O2 Flow Rate 97.9 F 97 19 154/95 H 97 Room Air 3 08/18/25 08:00 08/18/25 08:00 08/18/25 08:00 08/18/25 08:00 08/18/25 08:00 08/18/25 08:00 08/11/25 17:05 Narrative Exam General: No acute distress, well nourished Eye: PERRL, EOMI, normal conjunctiva, no scleral icterus HENT: Normocephalic, atraumatic, normal hearing, moist oral mucosa Neck: Supple, non-tender, no JVD, no lymphadenopathy Lungs: Clear to auscultation bilaterally, non-labored respirations, symmetric chest rise, no use of accessory muscles Heart: Normal S1 and S2, no S3 or S4 appreciated. Normal rate and regular rhythm, no murmurs, rubs gallops, or edema. Peripheral pulses intact bilaterally, capillary refill brisk distally Abdomen: TTP of RLQ. Open wound RLQ clean without erythema or warmth, packed with gauze, ileostomy bag in place draining brown liquid, necrotic stoma Musculoskeletal: Normal range of motion and strength, no tenderness or swelling Skin: Skin is warm, dry, no rashes or lesions. Neurologic: Alert, awake and oriented x3. CN II-XII grossly intact. No focal neuro deficits. No signs of meningeal irritation noted. Psychiatric: Cooperative, appropriate mood and affect Objective Labs 08/19/25 05:48 08/19/25 05:48 Labs: Laboratory Results - last 24 hr 08/18/25 05:00 WBC 20.3 H RBC 3.93 L Hgb 11.6 L Hct 35.4 L MCV 90 MCH 29.5 MCHC 32.8 RDW Std Deviation 52.1 H Plt Count 457 H D Neut % (Auto) 65 Lymph % (Auto) 11 [place] % (Auto) 9 Eos % (Auto) 5 Baso % (Auto) 1 Neut # (Auto) 13.2 H Lymph # (Auto) 2.3 [place] # (Auto) 1.8 H Eos # (Auto) 1.0 H Baso # (Auto) 0.2 Immature Gran # (Auto) 1.66 H Absolute Nucleated RBC 0.00 Immature Gran % 8 H Nucleated RBC % 0 Sodium 133 L Potassium 4.3 Chloride 96 L Carbon Dioxide 27.2 Anion Gap 10 BUN 21 Creatinine 0.5 L Estim Creat Clear Calc 75.4 eGFR > 60 BUN/Creatinine Ratio 42 H Glucose 184 H Calculated Osmolality 274 L Calcium 9.4 Corrected Calcium 9.7 Phosphorus 4.8 Magnesium 2.0 Total Bilirubin 0.3 AST 24 ALT < 7 L Alkaline Phosphatase 291 H D Total Protein 7.1 Albumin 3.6 Globulin 3.5 Albumin/Globulin Ratio 1.0 L ABG Interpretation ABG results: 08/11/25 13:49 ABG pH 7.27 L ABG pCO2 39 ABG pO2 185 H ABG HCO3 18 L ABG O2 Saturation 100 H ABG Base Excess -9 L Quality Measures Quality Measures VTE prophylaxis Advance care planning discussed with:: patient and child Assessment & Plan Assessment Current Active Medications: Generic Name Dose Route Start Last Admin Trade Name Freq PRN Reason Stop Dose Admin Hydrocodone Bitart/Acetaminophen 1 tab 08/13/25 12:11 08/18/25 08:41 Hydrocodone/Apap 7.5/325 Tablet PO 08/18/25 12:10 1 tab Q4HR PRN Administration PAIN SCALE 4-10(Mod-Sev Heparin Sodium (Porcine) 5,000 unit 08/08/25 21:00 08/11/25 09:19 Heparin Sod Inj 5000 Unit/Ml Vial SC 08/22/25 20:59 Not Given On Hold: 08/11/25 16:24 BID SHAWNA Fat Emulsion Intravenous 500 mls @ 32 mls/hr 08/13/25 18:00 08/16/25 17:29 Intralipid 20% Iv IV 09/12/25 17:59 32 mls/hr [email or web address] SHAWNA Administration Cefazolin Sodium/Dextrose 1 gm in 50 mls @ 100 mls/hr 08/16/25 14:39 08/18/25 05:06 Ancef Ivpb IV 08/23/25 14:38 100 mls/hr Q8HR SHAWNA Administration Sodium Chloride 40 meq/ 2,020 mls @ 60 mls/hr 08/17/25 18:00 08/17/25 18:30 Multivitamins/Minerals 10 ml/ IV 08/18/25 17:59 60 mls/hr Amino Acids/Electrolytes .Q24H SHAWNA Administration Insulin Human Regular 0 unit 08/13/25 00:00 08/18/25 05:07 Insulin Hum Regular 1 Unit/0.01 Ml (Per Unit) SC 09/12/25 00:00 4 unit Q6HR SHAWNA Administration Protocol Ondansetron HCl 4 mg 08/08/25 20:59 Ondansetron Inj 2 Mg/Ml Inj 2 Ml IVP 09/07/25 20:58 Q6H PRN NAUSEA OR VOMITING Protocol Pharmacy Consult 1 each 08/12/25 13:20 Pha To Consult Parenteral Nutr 1 Each Each XX 09/11/25 13:19 PRN PRN CONSULT Plan Carla Washington 65F pmhx significant for invasive adenocarcinoma of ascending colon s/p ex lap R hemicolectomy and ilio transverse anastomosis 07/21, prediabetes, anemia presented to [facility] ED on 08/08 with one day of high fevers of 103 deg and vomiting green bilious and one day of burning on urination, admitted for large abdominal abscess, pelvic abscess and UTI. Course complicated by leakage of fecal matter through previous surgical incision site, underwent ex lap with resection of small bowel takedown of anastomosis and diverting ileostomy on 08/11 for multiple small bowel lacerations. #Multiple small bowel lacerations s/p ex lap and resection of small bowl and takedown of anastomosis and diverting ileostomy 08/11 #Invasive adenocarcinoma of ascending colon s/p ex lap R hemicolectomy and ilio transverse anastomosis 07/21 #Abdominal abscess s/p IR drainage 08/10 #Pelvic abscess s/p IR drainage 08/09 #Wound dehiscence #Leukocytosis - downtrending Previous hospitalization 07/18-08/05: diagnosed invasive adenocarcinoma s/p ex lap, started TPN. c/b E coli bacteremia, Enterococcus and Pseudomonas UTI; stool leaking from incision site 07/21 Initial presentation current hospitalization: fever Tmax 103, bilious vomiting 08/08 CTAP; large abscess and soft tissue abdominal wall 16 x 8 x 4.5 cm, prominent colonic and small bowel ileus, suspicious for 8 x 8 cm pelvic abscess. Ex lap 08/11: small bowel lacerations proximal to anastamosis; small bowel (ileal) resection, ileostomy placed at ileal jejunal junction. Incision left open for secondary closure. Received 2U pRBC and 1 dose TXA during surgery CT a/p 07/17: persistent LLL consolidation/atelectasis. Extensive mesenteric edema. Improved right complex fluid collection extending across midline. Resolution of left fluid collection. Residual and new small fluid collection b/l. No free air. No bowel obstruction. 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 Management completed: - Flagyl (08/08) - Cipro (08/08) - Vanc (08/09-08/13) - Micafungin (08/09-08/13) - Zosyn (08/08-08/16) - Cefazolin (08/16 - ) L PICC placed and TPN started 08/12 Plan: - Cefazolin 1 g IV q8h (08/16 - ) x 5 days - Surgery consulted, recs appreciated - Dietitian consulted, recs appreciated: D20% AA5% at 60 mL/hr with 500 mL 20% lipids 3x/wk, add MVI with minerals QD, folate 1 mg if not in MVI, B12 500-1000 mcg QD, D3 3000-600 IU QD, Zinc 220 QD for 2 weeks - Advancing diet as tolerated (dysphagia 2 + Ensure) - TPN, q6h blood glucose checks and SSI q6h - [place] 7.5 q4h prn - Pending repeat Bcx - Pt will need wound vac upon d/c to SNF #Colonic and small bowel ileus CTAP findings as above Plan: - Continue ileostomy bag maintenance #Hypernatremia - resolved #Hypokalemia - resolved Plan: - Replete and recheck as necessary #Pyuria #Dysuria - resolved Reported 1 day of burning on urination. UA 1+ protein, trace blood, +LE, RBC 4, WBC 30. UCx negative. Plan: - CTM for urinary symptoms - Abx as above #Sinus tachycardia - resolved Initial EKG sinus tachycardia with short [place] interval rate 135, QTc 496. Likely 2/2 pain and abscess. Plan: - Med tele for monitoring #Normocytic anemia - stable Likely 2/2 chronic disease of adenocarcinoma. Denies melena, hematochezia or hematemasis. s/p 2 pRBC during surgery Hgb stable Plan: - CTM with daily CBC Checklist Dispo: Advancing diet as tolerating, on TPN Lines: PIV, L PICC Diet: Dysphagia 2, Ensure Bowel Reg: n/a VTE ppx: SCD GI ppx: n/a Pain mgmt: [place] 7 q4h PRN, dialudid 0.5 mg IV q4h PRN Code status: full Plan discussed with Dr. Richy Finch and Dr. Livier Short MD PGY1 Attending Provider Attestation/Addendum I, Melody Maier DO, attest that I was physically present for the [place] portions of the service and evaluated the patient with the resident and I reviewed and discussed the case with the resident and agree with the resident's findings and plans of care as documented above Patient seen and eval this a.m. Patient appears depressed, but has no acute complaints currently. Plan for placement of wound VAC today. Case was discussed with wound care nurse at bedside and surgeon over the phone. Wound VAC will promote healing of wound as well as prevent leakage of ileostomy output into wound. Will continue with cefazolin. Will plan for placement at acute rehab that can accommodate patient's TPN and wound VAC. Patient is motivated to work with physical therapy
--- NOTE | 2025-08-18 09:48 | CHAP ---
Patient was visited by a Spiritual Care Volunteer on 08/17/2025 between 0900 and 1140 and received comfort, encouragement and/or prayer.
[2025-08-18 12:00] VITALS: BP 134/84; PULSE 98; PULSE 99; RESP 18; TEMP 36.6; O2SAT 96
[2025-08-18] MEDS: HYDROmorphone INJ 2 MG/ML VIAL 1 MG IVP (15:14)
[2025-08-18 16:00] VITALS: BP 156/99; PULSE 103; PULSE 106; RESP 18; TEMP 37.2; O2SAT 98
--- NOTE | 2025-08-18 16:11 | PC.SS ---
rounding note: Patient white count is trending down. Repeat imaging. Patient will need wound vac at SNF. SS will submit updated clinicals to [facility].
[2025-08-18] MEDS: FAT EMULSIONS 20% IV 500 ML 32 ML IV (17:17)
[2025-08-18 20:00] VITALS: BP 123/84; PULSE 102; PULSE 108; RESP 20; TEMP 36.3; O2SAT 95
[2025-08-19] VITALS: BP 127/75; PULSE 93; RESP 17; TEMP 36.2; O2SAT 93
[2025-08-19 04:00] VITALS: BP 132/87; PULSE 106; PULSE 108; RESP 15; TEMP 36.2; O2SAT 96
[2025-08-19] MEDS: HYDROmorphone INJ 2 MG/ML VIAL 1 MG IVP ×3 (04:25→21:27)
[2025-08-19] MEDS: INSULIN HUM REGULAR 1 UNIT/0.01 ML (PER UNIT) SC (05:43)
[2025-08-19] MEDS: ceFAZolin/D5W 1 GM IVPB 1 GM/50 ML BAG IV ×3 (05:44→21:07)
[2025-08-19 06:30] LABS: Basophils # (Auto) 0.2 Thou/mm3 (0.0-0.2); Basophils % (Auto) 1 % (0-2.5); Eosinophils # (Auto) 0.7 Thou/mm3 (0.0-0.5); Eosinophils % (Auto) 4 % (0-10); Hematocrit 35.1 % (36.0-46.0); Hemoglobin 11.6 g/dL (12.0-16.0); Immature Granulocytes Auto 1.28 Thou/mm3 (0.00-0.00); Lymphocytes # (Auto) 1.8 Thou/mm3 (1.0-4.8); Lymphocytes % (Auto) 10 % (10-50); Mean Corpuscular HGB Conc 33.0 g/dl (31.0-37.0); Mean Corpuscular Hemoglobin 29.7 pg (25.0-35.0); Mean Corpuscular Volume 90 fL (80-100); Monocytes # (Auto) 1.6 Thou/mm3 (0.0-0.8); Monocytes % (Auto) 9 % (0-12); Neutrophils # (Auto) 12.7 Thou/mm3 (1.8-7.7); Neutrophils % (Auto) 70 % (37-80); Nucleated Red Blood Cell # 0.00 Thou/mm3 (0.00-0.00); Nucleated Red Blood Cell % 0 /100 WBC (0); Platelet Count 475 Thou/mm3 (140-440); RDW Standard Deviation 52.3 fL (36.4-46.3); Red Blood Count 3.90 Miln/mm3 (4.00-5.20); White Blood Count 18.3 Thou/mm3 (3.6-11.0)
[2025-08-19 07:06] LABS: Alanine Aminotransferase < 7 U/L (10-49); Albumin, Serum 3.7 gm/dL (3.4-4.8); Albumin/Globulin Ratio 1.1 (1.2-2.2); Alkaline Phosphatase 297 U/L (46-116); Anion Gap 11 (7-16); Aspartate Amino Transferase 26 U/L (0-34); BUN/Creatinine Ratio 30 Ratio (12-20); Bilirubin,Total 0.2 mg/dL (0.3-1.2); Blood Urea Nitrogen 18 mg/dL (9-23); Calcium 9.3 mg/dL (8.3-10.6); Calcium (Corrected) 9.5 mg/dL (8.5-10.1); Carbon Dioxide 26.0 mMol/L (20.0-31.0); Chloride 95 mMol/L (98-107); Creatinine (Component) 0.6 mg/dL (0.6-1.3); Estimated Creatinine Clearance 63.1 mL/min (>60); Globulin 3.5 gm/dL (2.3-3.5); Glucose 212 mg/dL (74-106); Magnesium 1.9 mg/dL (1.6-2.6); Osmolality,Calculated 272 (275-295); Phosphorous 4.6 mg/dL (2.4-5.1); Potassium 3.9 mMol/L (3.4-5.1); Sodium 132 mMol/L (136-145); Total Protein 7.2 gm/dL (5.7-8.2); eGFR > 60 See Note
--- NOTE | 2025-08-19 07:56 | ESPR_ITS ---
<Statement entered by Heidi Finch MD - 08/20/25 07:22> Pt is seen at bedside, per surgery recommendation wound vac was placed, pt contineus to be on TPN, have regular bowel movements. Pt does complain of abdominal pain that does respond to meds. Pt requested to be allowed to be mobile, asked if she an walk around the room and sit in the chair. Pt is encouraged to do so as much as she can tolerate. Discussed with pt and family regarding acute rehab which they have agreed to. Will submit auth for LTACH placement. Will continue IV ABX today as the last dose. Patient was seen and examined by me personally. I have directly supervised and reviewed documentation by the team resident and agree with its findings. ------- Plan of care was discussed with the attending, Dr. Livier Finch, PGY-2 Documentation for date of: 08/19/25 Subjective Subjective Interval history: NAEO. Patient sitting up in bed, eating breakfast. Denies nausea or vomiting. Wound vac placed yesterday. No acute concerns at this time. Exam Vital Signs Temp Pulse Resp BP Pulse Ox O2 Del Method O2 Flow Rate 97.2 F 108 H 15 132/87 H 96 Room Air 3 08/19/25 04:00 08/19/25 04:00 08/19/25 04:00 08/19/25 04:00 08/19/25 04:00 08/19/25 04:00 08/11/25 17:05 Narrative Exam General: No acute distress, well nourished Eye: PERRL, EOMI, normal conjunctiva, no scleral icterus HENT: Normocephalic, atraumatic, normal hearing, moist oral mucosa Neck: Supple, non-tender, no JVD, no lymphadenopathy Lungs: Clear to auscultation bilaterally, non-labored respirations, symmetric chest rise, no use of accessory muscles Heart: Normal S1 and S2, no S3 or S4 appreciated. Normal rate and regular rhythm, no murmurs, rubs gallops, or edema. Peripheral pulses intact bilaterally, capillary refill brisk distally Abdomen: TTP of RLQ. Wound vac in place in RLQ, ileostomy bag in place draining brown liquid, necrotic stoma Musculoskeletal: Normal range of motion and strength, no tenderness or swelling Skin: Skin is warm, dry, no rashes or lesions. Neurologic: Alert, awake and oriented x3. CN II-XII grossly intact. No focal neuro deficits. No signs of meningeal irritation noted. Psychiatric: Cooperative, appropriate mood and affect Objective Labs 08/20/25 05:24 08/20/25 05:24 Labs: Laboratory Results - last 24 hr 08/19/25 05:48 WBC 18.3 H RBC 3.90 L Hgb 11.6 L Hct 35.1 L MCV 90 MCH 29.7 MCHC 33.0 RDW Std Deviation 52.3 H Plt Count 475 H Neut % (Auto) 70 Lymph % (Auto) 10 [place] % (Auto) 9 Eos % (Auto) 4 Baso % (Auto) 1 Neut # (Auto) 12.7 H Lymph # (Auto) 1.8 [place] # (Auto) 1.6 H Eos # (Auto) 0.7 H Baso # (Auto) 0.2 Immature Gran # (Auto) 1.28 H Absolute Nucleated RBC 0.00 Immature Gran % 7 H Nucleated RBC % 0 Sodium 132 L Potassium 3.9 Chloride 95 L Carbon Dioxide 26.0 Anion Gap 11 BUN 18 Creatinine 0.6 Estim Creat Clear Calc 63.1 eGFR > 60 BUN/Creatinine Ratio 30 H Glucose 212 H Calculated Osmolality 272 L Calcium 9.3 Corrected Calcium 9.5 Phosphorus 4.6 Magnesium 1.9 Total Bilirubin 0.2 L AST 26 ALT < 7 L Alkaline Phosphatase 297 H Total Protein 7.2 Albumin 3.7 Globulin 3.5 Albumin/Globulin Ratio 1.1 L ABG Interpretation ABG results: 08/11/25 13:49 ABG pH 7.27 L ABG pCO2 39 ABG pO2 185 H ABG HCO3 18 L ABG O2 Saturation 100 H ABG Base Excess -9 L Quality Measures Quality Measures VTE prophylaxis Advance care planning discussed with:: patient and child Assessment & Plan Assessment Current Active Medications: Generic Name Dose Route Start Last Admin Trade Name Freq PRN Reason Stop Dose Admin Hydrocodone Bitart/Acetaminophen 1 tab 08/18/25 13:34 08/18/25 20:47 Hydrocodone/Apap 7.5/325 Tablet PO 08/23/25 13:33 1 tab Q4HR PRN Administration Pain 4-10 Dextrose 25 ml 08/19/25 07:54 Dextrose 50%-Water Inj 50 Ml Syringe IV 09/18/25 07:53 Q15MIN PRN BG 50-70 responsive npo pt Dextrose 50 ml 08/19/25 07:54 Dextrose 50%-Water Inj 50 Ml Syringe IV 09/18/25 07:53 Q15MIN PRN BG <50 OR BG <70 & pt unresponsive Glucagon 1 mg 08/19/25 07:54 Glucagon Inj 1 Mg Vial IM Q15MIN PRN BG <70, and no IV access Heparin Sodium (Porcine) 5,000 unit 08/08/25 21:00 08/11/25 09:19 Heparin Sod Inj 5000 Unit/Ml Vial SC 08/22/25 20:59 Not Given On Hold: 08/11/25 16:24 BID SHAWNA Fat Emulsion Intravenous 500 mls @ 32 mls/hr 08/13/25 18:00 08/18/25 17:17 Intralipid 20% Iv IV 09/12/25 17:59 32 mls/hr [id number] SHAWNA Administration Cefazolin Sodium/Dextrose 1 gm in 50 mls @ 100 mls/hr 08/16/25 14:39 08/19/25 05:44 Ancef Ivpb IV 08/23/25 14:38 100 mls/hr Q8HR SHAWNA Administration Sodium Chloride 60 meq/ 2,025 mls @ 60 mls/hr 08/18/25 18:00 08/18/25 17:18 Multivitamins/Minerals 10 ml/ IV 08/19/25 17:59 60 mls/hr Amino Acids/Electrolytes .Q24H SHAWNA Administration Insulin Human Lispro 0 unit 08/19/25 12:00 Insulin Lispro (Admelog) 1 Unit/0.01 Ml Unit SC 09/18/25 11:59 Q6HR SHAWNA Protocol Ondansetron HCl 4 mg 08/08/25 20:59 Ondansetron Inj 2 Mg/Ml Inj 2 Ml IVP 09/07/25 20:58 Q6H PRN NAUSEA OR VOMITING Protocol Pharmacy Consult 1 each 08/12/25 13:20 Pha To Consult Parenteral Nutr 1 Each Each XX 09/11/25 13:19 PRN PRN CONSULT Plan Carla Washington 65F pmhx significant for invasive adenocarcinoma of ascending colon s/p ex lap R hemicolectomy and ilio transverse anastomosis 07/21, prediabetes, anemia presented to [facility] ED on 08/08 with one day of high fevers of 103 deg and vomiting green bilious and one day of burning on urination, admitted for large abdominal abscess, pelvic abscess and UTI. Course complicated by leakage of fecal matter through previous surgical incision site, underwent ex lap with resection of small bowel takedown of anastomosis and diverting ileostomy on 08/11 for multiple small bowel lacerations. #Multiple small bowel lacerations s/p ex lap and resection of small bowl and takedown of anastomosis and diverting ileostomy 08/11 #Invasive adenocarcinoma of ascending colon s/p ex lap R hemicolectomy and ilio transverse anastomosis 07/21 #Abdominal abscess s/p IR drainage 08/10 #Pelvic abscess s/p IR drainage 08/09 #Wound dehiscence #Leukocytosis - downtrending Previous hospitalization 07/18-08/05: diagnosed invasive adenocarcinoma s/p ex lap, started TPN. c/b E coli bacteremia, Enterococcus and Pseudomonas UTI; stool leaking from incision site 07/21 Initial presentation current hospitalization: fever Tmax 103, bilious vomiting 08/08 CTAP; large abscess and soft tissue abdominal wall 16 x 8 x 4.5 cm, prominent colonic and small bowel ileus, suspicious for 8 x 8 cm pelvic abscess. Ex lap 08/11: small bowel lacerations proximal to anastamosis; small bowel (ileal) resection, ileostomy placed at ileal jejunal junction. Incision left open for secondary closure. Received 2U pRBC and 1 dose TXA during surgery CT a/p 07/17: persistent LLL consolidation/atelectasis. Extensive mesenteric edema. Improved right complex fluid collection extending across midline. Resolution of left fluid collection. Residual and new small fluid collection b/l. No free air. No bowel obstruction. 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 Management completed: - Flagyl (08/08) - Cipro (08/08) - Vanc (08/09-08/13) - Micafungin (08/09-08/13) - Zosyn (08/08-08/16) - Cefazolin (08/16 - ) L PICC placed and TPN started 08/12 08/18: wound vac placed on RLQ open wound Plan: - Cefazolin 1 g IV q8h (08/16 - 08/20) x 5 days - Surgery consulted, recs appreciated - Dietitian consulted, recs appreciated: D20% AA5% at 60 mL/hr with 500 mL 20% lipids 3x/wk, add MVI with minerals QD, folate 1 mg if not in MVI, B12 500-1000 mcg QD, D3 3000-600 IU QD, Zinc 220 QD for 2 weeks - Advancing diet as tolerated (dysphagia 2 + Ensure) - TPN, q6h blood glucose checks and SSI q6h - Dilaudid 1 mg PO q4h PRN - Pending repeat Bcx - NGTD at 24 hours - Will d/c to SNF when appropriate #Colonic and small bowel ileus CTAP findings as above Plan: - Continue ileostomy bag maintenance #Electrolyte disturbances Plan: - Fluid restrict 1800 mL/day - CTM with daily CMP #Pyuria #Dysuria - resolved Reported 1 day of burning on urination. UA 1+ protein, trace blood, +LE, RBC 4, WBC 30. UCx negative. Plan: - CTM for urinary symptoms - Abx as above #Sinus tachycardia - resolved Initial EKG sinus tachycardia with short CA interval rate 135, QTc 496. Likely 2/2 pain and abscess. Plan: - Med tele for monitoring #Normocytic anemia - stable Likely 2/2 chronic disease of adenocarcinoma. Denies melena, hematochezia or hematemasis. s/p 2 pRBC during surgery Hgb stable Plan: - CTM with daily CBC #Hyperglycemia On TPN, advancing diet Plan: - SSI step 2 q6h Checklist Dispo: Advancing diet as tolerating Lines: PIV, L PICC Diet: Dysphagia 2, Ensure Bowel Reg: n/a VTE ppx: SCD GI ppx: n/a Pain mgmt: Dilaudid 1 mg PO q4h PRN Code status: full Plan discussed with Dr. Richy Finch and Dr. Livier Short MD PGY1 Attending Provider Attestation/Addendum Connie, Melody Maier DO, attest that I was physically present for the [place] portions of the service and evaluated the patient with the resident and I reviewed and discussed the case with the resident and agree with the resident's findings and plans of care as documented above Patient seen and eval this a.m. Patient is in better spirits today. She is motivated to do physical therapy today. [id number] is at bedside. Wound VAC is in place and she remains on cefazolin at this time. Leukocytosis is greatly improving. Patient does have report pain with wound VAC changes. Will switch [place] to Dilaudid 2 mg p.o. as needed. Advised for meds to be crushed for better absorption as patient has a short gut, thus will increase potency of the pain medication. She remains on TPN at this time. Family is agreeable to acute rehab placement where patient can have wound VAC and TPN attended to
[2025-08-19 08:00] VITALS: BP 145/83; PULSE 100; PULSE 98; RESP 18; TEMP 36.6; O2SAT 97
[2025-08-19 09:00] VITALS: BMI 23.3
[2025-08-19] MEDS: INSULIN LISPRO (AdmeLOG) 1 UNIT/0.01 ML UNIT SC ×3 (11:19→23:36)
[2025-08-19] MEDS: FAMOTIDINE 20 MG TABLET PO (11:56)
[2025-08-19 12:00] VITALS: PULSE 95
--- NOTE | 2025-08-19 12:02 | PC.SS ---
Follow up note: Patient has new wound vac. Physician team recommended acute rehab. SS met with patient with assistant infant toddler teacher. Daughter in law present. SS explained differences between SNF vs acute rehab. Patient and daughter in law state they have family in [place] so they would prefer [facility] acute rehab as first choice then [facility] in [place] as second. SS sent inquiry to all acute facilities. Patient remains on TPN. No i.v.'s. Wound vac/wound care /PT
[2025-08-19 15:11] VITALS: BMI 13.0
[2025-08-19 15:29] VITALS: BMI 23.3
[2025-08-19 16:00] VITALS: BP 142/93; PULSE 86; PULSE 93; RESP 18; TEMP 36.6; O2SAT 97
[2025-08-19] MEDS: HYDROMORPHONE HCL 2 MG TABLET 1 MG PO (16:09)
--- NOTE | 2025-08-19 16:24 | PC.WOUND ---
Fluid restriction orders clarified with Dr. Maier. Orders to cancel and add salt packets with meals.
[2025-08-19 20:00] VITALS: BP 145/91; PULSE 110; PULSE 99; RESP 18; TEMP 36.5; O2SAT 95
[2025-08-20] VITALS: BP 107/84; PULSE 94; PULSE 97; RESP 19; TEMP 36; O2SAT 96
[2025-08-20 04:00] VITALS: BP 123/78; PULSE 105; PULSE 98; RESP 24; TEMP 36.2; O2SAT 94
[2025-08-20] MEDS: INSULIN LISPRO (AdmeLOG) 1 UNIT/0.01 ML UNIT SC ×2 (05:22→11:36)
[2025-08-20] MEDS: ceFAZolin/D5W 1 GM IVPB 1 GM/50 ML BAG IV ×3 (05:23→22:31)
[2025-08-20 06:04] LABS: Basophils # (Auto) 0.2 Thou/mm3 (0.0-0.2); Basophils % (Auto) 1 % (0-2.5); Eosinophils # (Auto) 0.5 Thou/mm3 (0.0-0.5); Eosinophils % (Auto) 3 % (0-10); Hematocrit 33.2 % (36.0-46.0); Hemoglobin 10.7 g/dL (12.0-16.0); Immature Granulocytes Auto 0.74 Thou/mm3 (0.00-0.00); Lymphocytes # (Auto) 1.7 Thou/mm3 (1.0-4.8); Lymphocytes % (Auto) 11 % (10-50); Mean Corpuscular HGB Conc 32.2 g/dl (31.0-37.0); Mean Corpuscular Hemoglobin 29.0 pg (25.0-35.0); Mean Corpuscular Volume 90 fL (80-100); Monocytes # (Auto) 1.3 Thou/mm3 (0.0-0.8); Monocytes % (Auto) 9 % (0-12); Neutrophils # (Auto) 10.2 Thou/mm3 (1.8-7.7); Neutrophils % (Auto) 70 % (37-80); Nucleated Red Blood Cell # 0.00 Thou/mm3 (0.00-0.00); Nucleated Red Blood Cell % 0 /100 WBC (0); Platelet Count 470 Thou/mm3 (140-440); RDW Standard Deviation 52.8 fL (36.4-46.3); Red Blood Count 3.69 Miln/mm3 (4.00-5.20); White Blood Count 14.7 Thou/mm3 (3.6-11.0)
[2025-08-20 06:34] LABS: Alanine Aminotransferase 7 U/L (10-49); Albumin, Serum 3.7 gm/dL (3.4-4.8); Albumin/Globulin Ratio 1.1 (1.2-2.2); Alkaline Phosphatase 290 U/L (46-116); Anion Gap 8 (7-16); Aspartate Amino Transferase 26 U/L (0-34); BUN/Creatinine Ratio 42 Ratio (12-20); Bilirubin,Total 0.4 mg/dL (0.3-1.2); Blood Urea Nitrogen 21 mg/dL (9-23); Calcium 9.0 mg/dL (8.3-10.6); Calcium (Corrected) 9.2 mg/dL (8.5-10.1); Carbon Dioxide 26.3 mMol/L (20.0-31.0); Cardiac Risk Estimate 6.3 RATIO (3.7-5.6); Chloride 97 mMol/L (98-107); Cholesterol 152 mg/dL (132-200); Creatinine (Component) 0.5 mg/dL (0.6-1.3); Estimated Creatinine Clearance 75.7 mL/min (>60); Globulin 3.4 gm/dL (2.3-3.5); Glucose 185 mg/dL (74-106); HDL Cholesterol 24 mg/dL (40-60); LDL Cholesterol,Calculated 80 mg/dL (0-130); Magnesium 2.0 mg/dL (1.6-2.6); Osmolality,Calculated 270 (275-295); Phosphorous 3.0 mg/dL (2.4-5.1); Potassium 4.1 mMol/L (3.4-5.1); Sodium 131 mMol/L (136-145); Total Protein 7.1 gm/dL (5.7-8.2); Triglycerides 241 mg/dL (30-150); eGFR > 60 See Note
[2025-08-20] MEDS: HYDROmorphone INJ 2 MG/ML VIAL 1 MG IVP ×2 (07:44→12:03)
[2025-08-20 08:00] VITALS: BP 137/83; PULSE 87; PULSE 96; RESP 18; TEMP 36.6; O2SAT 97
[2025-08-20] MEDS: FAMOTIDINE 20 MG TABLET PO (08:22)
[2025-08-20 09:00] VITALS: BMI 23.3
--- NOTE | 2025-08-20 10:51 | ESDS_ITS ---
<Statement entered by Melody Maier DO - 08/20/25 15:18> I, Melody Maier DO, attest that I was physically present for the [place] portions of the service and evaluated the patient with the resident and I reviewed and discussed the case with the resident and agree with the resident's findings and plans of care as documented above Patient is stable for discharge, but patient will stay the night as surgery has decided to schedule patient for closure of the wound tomorrow. She will continue to require wound VAC as well. Patient is stable otherwise and reports 8 out of 10 pain, controlled with pain medications. She is tolerating p.o. intake. She is to continue TPN until she is able to meet her nutrition needs via p.o. intake. This could be weaned at the acute rehab. Patient can be discharged tomorrow following closure of the wound. Wound VAC continues to drain serosanguineous fluid. WBCs have been downtrending. Patient has been afebrile. Ileostomy is outputting copious amounts of fluid. Case was discussed with surgeon, no need for further antibiotic coverage. Planned Discharge Date 08/20/25 DS: Providers Provider Date of admission: 08/08/25 20:48 Primary care physician: ERIBERTO Martinez([facility]) Admitting Provider: Paramjit Haddad MD Attending Provider on Admission: Melody Maier DO Consults: 08/08/25 23:41 Referral Henry Routine Comment: Referral Physical Therapy Routine Comment: Physician Instructions: Referral Respiratory Therapy Routine Comment: 08/09/25 00:51 Consult to General Surgery Stat Comment: Consulting Provider: Riky Sánchez 08/09/25 08:13 Referral Registered Dietitian Routine Comment: 08/12/25 13:19 Referral Registered Dietitian Routine Comment: TPN, plan for PICC to be placed today 08/16/25 09:00 Referral Wound Care Routine Comment: Attending Provider on DC: Christa Short MD Discharging Provider: Christa Short MD DS: Diagnosis Problem List Completed Was Problem List Reviewed/Reconciled?: Yes Hospital Course Hospital Course Hospital course: Hospital course: Ms. Washington is a 65-year-old female past medical history of invasive adeno carcinoma of the ascending colon s/p ex lap right hemicolectomy and ileotransverse anastomosis on 07/21 who presented from SNF to the ED on 08/08 with fevers, chills, sudden onset abdominal pain, and dysuria. Urine culture NGTD. Imaging showed large abdominal and pelvic abscess as well as colonic and small bowel ileus. NG tube was placed for SBO. Abscesses were successfully drained by IR and IV antibiotics and antifungals were started given possible immunocompromised status. Hospital course complicated by leakage of bowel secondary to anastomosis disruption and wound dehiscence. Dr. Suggs was consulted and an ex lap was performed on 08/11 with resection of small bowel 2/2 multiple lacerations and takedown of anastomosis with diverting ileostomy. Incision was left open for secondary closure. 2U pRBC and 1 dose of TXA with calcium gluconate was given during surgery. Wound culture grew Klebsiella, and patient completed a course of Cefazolin IV with downtrending leukocytosis and resolution of fever. A PICC line was placed for TPN starting 08/12. Repeat CT revealved extensive mesenteric edema but improved right complex fluid collection, resolution of left fluid collection. Wound vac was placed on right lower abdominal open wound on 08/18. Oral diet was advanced as tolerated. Patient will be discharged to [facility] acute rehab. Appropriate transfer was set up for safe discharge. Patient stable and medically cleared for discharge. Diagnoses #Multiple small bowel lacerations s/p ex lap and resection of small bowl and takedown of anastomosis and diverting ileostomy 08/11 #Invasive adenocarcinoma of ascending colon s/p ex lap R hemicolectomy and ilio transverse anastomosis 07/21 #Abdominal abscess s/p IR drainage 08/10 #Pelvic abscess s/p IR drainage 08/09 #Wound dehiscence #Leukocytosis - downtrending #Colonic and small bowel ileus #Electrolyte disturbances #Pyuria #Dysuria - resolved #Sinus tachycardia - resolved #Normocytic anemia - stable #Hyperglycemia Discharge Instructions - Follow up with Dr. Suggs, general surgeon - Continue Tylenol, famotidine, dialudid 1 mg by mouth every 4 hours as needed f or pain - Continue total parenteral nutrition through PICC line - Continue rest of medications as previously prescribed - Return to the ED or call EMS if symptoms return and/or worsen Right to midline horizontal surgical incision: Ileostomy pouching to be changed after wound vac dressing. Please remove pouching and cleanse the skin around with soap and water- removing all adhesive. Cover ileostomy with wet wash cloths, prep wafer to 41mm oval opening and warm wafer while change wound vac dressing than reapply ileostomy pouch. (Also see ileostomy wound orders) Surgical incision: irrigate well with NS, pat dry. Cover base of wound bed with single piece of adaptic. Fill wound bed with black foam. Skin prep to wound edges, drape and trac pad at the lateral aspect at 50mmhg continuous suction. Change Mon/Sat/Fri and PRN for suction off greater than 2 hours. IF unable to keep wound vac seal, remove wound vac dressing and apply NS wet/dry dressing daily until wound vac can be reapplied. Ileostomy Care: change with wound vac dressings changes Mon/Sat/Sat and PRN for leaking Change every 3-5 days or any time wafer appears soiled Have towel at hand Measure out put Peel off the wafer and discard Clean stoma with warm water and mild soap, pat dry Assess skin around stoma for skin breakdown Cut wafer to fit stoma Prepare skin by applying skin barrier and paste Apply wafer by removing backing from wafer and attaching to skin, smooth down to skin and make sure it?s firmly adhere to skin Christa Short MD PGY1 Time Spent with Patient Time attestation: Total time spent providing and/or coordinating discharge services: Time spent: Greater than 30 minutes Exam Vital Signs Temp Pulse Resp BP Pulse Ox O2 Del Method O2 Flow Rate 97.8 F 96 18 137/83 H 97 Room Air 3 08/20/25 08:00 08/20/25 08:00 08/20/25 08:00 08/20/25 08:00 08/20/25 08:00 08/20/25 08:00 08/11/25 17:05 Discharge Plan Plan Patient Disposition: [facility] Acute Care Fac Service Needed for Transfer: General Surgery Patient condition on transfer: Stable Care Plan Goals: - Follow up with PCP within 1 week of discharge, if you do not have a primary care physician you can come see us at the [facility] by calling [phone] - Follow up with Dr. Suggs, general surgeon - Continue Tylenol, famotidine, dialudid 1 mg by mouth every 4 hours as needed for pain - Continue total parenteral nutrition through PICC line - Continue rest of medications as previously prescribed - Return to the ED or call EMS if symptoms return and/or worsen Right to midline horizontal surgical incision: Ileostomy pouching to be changed after wound vac dressing. Please remove pouching and cleanse the skin around with soap and water- removing all adhesive. Cover ileostomy with wet wash cloths, prep wafer to 41mm oval opening and warm wafer while change wound vac dressing than reapply ileostomy pouch. (Also see ileostomy wound orders) Surgical incision: irrigate well with NS, pat dry. Cover base of wound bed with single piece of adaptic. Fill wound bed with black foam. Skin prep to wound edges, drape and trac pad at the lateral aspect at 50mmhg continuous suction. Change Mon/Wed/Fri and PRN for suction off greater than 2 hours. IF unable to keep wound vac seal, remove wound vac dressing and apply NS wet/dry dressing daily until wound vac can be reapplied. Ileostomy Care: change with wound vac dressings changes Mon/Wed/Sat and PRN for leaking Change every 3-5 days or any time wafer appears soiled Have towel at hand Measure out put Peel off the wafer and discard Clean stoma with warm water and mild soap, pat dry Assess skin around stoma for skin breakdown Cut wafer to fit stoma Prepare skin by applying skin barrier and paste Apply wafer by removing backing from wafer and attaching to skin, smooth down to skin and make sure it?s firmly adhere to skin Prescriptions/Referrals Prescriptions/Med Rec: New famotidine 20 mg Tablet 20 mg PO QDAY Qty: 30 0RF hydromorphone 2 mg Tablet 1 mg PO Q4HR MDD 6 PRN (Reason: Pain Scale 4- 10(Moderate) Qty: 30 0RF Continued multivitamin Tablet 1 tab PO QDAY Qty: 30 0RF senna 8.6 mg capsule 8.6 mg PO QDAY Qty: 30 0RF thiamine HCl (vitamin B1) 100 mg capsule 100 mg PO QDAY Qty: 30 0RF acetaminophen 325 mg capsule 650 mg PO Q6H PRN (Reason: fever or pain) Discontinued hydrocodone-acetaminophen 5-325 mg tablet 1 tab PO Q8H MDD 1 tab 3 times daily PRN (Reason: pain) Qty: 10 0RF Referrals: Ary Short FNP ([facility]) [Primary Care Provider] Patient/Caregiver Discharge Instructions Print Language: Djiboutian Stand Alone Forms: Brittani Award Info., Patient Portal Info Letter Discharge Order Discharge Orders: Discharge (Routine); Ordered 08/20/25 Ordered By: Heidi Finch Quality Discharge Quality Measures VTE prophylaxis
[2025-08-20 12:00] VITALS: BP 117/70; PULSE 102; PULSE 98; RESP 20; TEMP 36.8; O2SAT 96
--- NOTE | 2025-08-20 13:54 | PD.SURPROG ---
Documentation for date of: 08/20/25 Subjective Subjective Brief History: Patient was readmitted with fever and chills from the half-way after discharge few days ago Narrative: The patient seems to be doing slightly better. There is no vomiting. The wound was inspected and showed beefy red granulation tissue. There was minimal drainage on wound VAC Exam Vital Signs Temp Pulse Resp BP Pulse Ox O2 Del Method O2 Flow Rate 98.3 F 102 H 20 117/70 96 Room Air 3 08/20/25 12:00 08/20/25 12:00 08/20/25 12:00 08/20/25 12:00 08/20/25 12:00 08/20/25 12:00 08/11/25 17:05 Vital signs are normal Routine Abdominal Exam Comments: Abdominal examination showed soft abdomen with good bowel sounds. The Dash-Shaffer drain was removed. Results Results: Laboratory Laboratory Narrative: Patient's WBC is coming down slowly Assessment & Plan Assessment Additional comments: Impression: Slow recovery after drainage of abdominal infection Plan Plan: We shall try to close the incision tomorrow and then maybe transfer her to rehab center in [place] PROCEDURES: Procedures Explored laparotomy and resection of the small bowel and takedown of the anastomosis and diverting ileostomy
[2025-08-20 16:00] VITALS: BP 125/86; PULSE 90; PULSE 92; RESP 17; TEMP 36.4; O2SAT 98
[2025-08-20] MEDS: FAT EMULSIONS 20% IV 500 ML 32 ML IV (17:49)
[2025-08-20] MEDS: HYDROMORPHONE HCL 2 MG TABLET 1 MG PO ×2 (18:21→22:31)
[2025-08-20 20:00] VITALS: BP 110/70; PULSE 104; PULSE 90; RESP 18; TEMP 36.7; O2SAT 96
[2025-08-21] VITALS (12 sets, daily range): BP systolic 96–139; BP diastolic 24–87; PULSE 90–103; RESP 14–21; TEMP 36.3–37.1; O2SAT 95–99; BMI 23.3
[2025-08-21] MEDS: HYDROmorphone INJ 2 MG/ML VIAL 1 MG IVP (04:01)
[2025-08-21 06:16] LABS: Basophils # (Auto) 0.2 Thou/mm3 (0.0-0.2); Basophils % (Auto) 1 % (0-2.5); Eosinophils # (Auto) 0.4 Thou/mm3 (0.0-0.5); Eosinophils % (Auto) 3 % (0-10); Hematocrit 32.9 % (36.0-46.0); Hemoglobin 10.8 g/dL (12.0-16.0); Immature Granulocytes Auto 0.54 Thou/mm3 (0.00-0.00); Lymphocytes # (Auto) 1.6 Thou/mm3 (1.0-4.8); Lymphocytes % (Auto) 12 % (10-50); Mean Corpuscular HGB Conc 32.8 g/dl (31.0-37.0); Mean Corpuscular Hemoglobin 29.7 pg (25.0-35.0); Mean Corpuscular Volume 90 fL (80-100); Monocytes # (Auto) 1.1 Thou/mm3 (0.0-0.8); Monocytes % (Auto) 8 % (0-12); Neutrophils # (Auto) 9.6 Thou/mm3 (1.8-7.7); Neutrophils % (Auto) 72 % (37-80); Nucleated Red Blood Cell # 0.00 Thou/mm3 (0.00-0.00); Nucleated Red Blood Cell % 0 /100 WBC (0); Platelet Count 499 Thou/mm3 (140-440); RDW Standard Deviation 52.9 fL (36.4-46.3); Red Blood Count 3.64 Miln/mm3 (4.00-5.20); White Blood Count 13.4 Thou/mm3 (3.6-11.0)
[2025-08-21] MEDS: ceFAZolin/D5W 1 GM IVPB 1 GM/50 ML BAG IV (06:45)
[2025-08-21 06:53] LABS: Alanine Aminotransferase 11 U/L (10-49); Albumin, Serum 3.8 gm/dL (3.4-4.8); Albumin/Globulin Ratio 1.1 (1.2-2.2); Alkaline Phosphatase 295 U/L (46-116); Anion Gap 11 (7-16); Aspartate Amino Transferase 29 U/L (0-34); BUN/Creatinine Ratio 42 Ratio (12-20); Bilirubin,Total 0.2 mg/dL (0.3-1.2); Blood Urea Nitrogen 21 mg/dL (9-23); Calcium 9.3 mg/dL (8.3-10.6); Calcium (Corrected) 9.5 mg/dL (8.5-10.1); Carbon Dioxide 24.3 mMol/L (20.0-31.0); Chloride 100 mMol/L (98-107); Creatinine (Component) 0.5 mg/dL (0.6-1.3); Estimated Creatinine Clearance 75.7 mL/min (>60); Globulin 3.4 gm/dL (2.3-3.5); Glucose 184 mg/dL (74-106); Magnesium 2.2 mg/dL (1.6-2.6); Osmolality,Calculated 278 (275-295); Phosphorous 4.2 mg/dL (2.4-5.1); Potassium 4.2 mMol/L (3.4-5.1); Sodium 135 mMol/L (136-145); Total Protein 7.2 gm/dL (5.7-8.2); eGFR > 60 See Note
[2025-08-21] MEDS: HYDROMORPHONE HCL 2 MG TABLET 1 MG PO ×3 (09:00→22:17)
[2025-08-21] MEDS: FAMOTIDINE 20 MG TABLET PO (09:01)
--- NOTE | 2025-08-21 09:30 | PC.SS ---
SS spoke to Susy [phone] from [facility] who stated pt needs to be on oral pain meds for 24hrs prior to pt DC to their facility. SS Spoke to RN, Nacho Souza who stated pt was started on PO meds this am 0900. SS to follow up with Susy tomorrow.
--- NOTE | 2025-08-21 12:17 | SUR.PHASEI ---
received pt and report from EUGENE Hannon and Dr Don. Pt awake, slightly emothional. VSS stable. Pt c/o 01/[address] Don at bedside and made aware of pain and administered pain medication. wound vac in place, ileostomy in place, no drainage noted to ileostomy. wound vac dressing CDI.
--- NOTE | 2025-08-21 12:18 | PD.SUROPNT ---
Date of Procedure 08/21/25 Pre Op Diagnosis Infected wound left open prophylactically for secondary closure Post Op Diagnosis Same Procedure Secondary closure of the abdominal wound Findings Patient also had some facial sutures that were torn during exploration Procedure Description After the patient was brought to the operating room she was placed in supine position and the wound VAC was removed. Then the wound was washed with Betadine solution and draped in a sterile manner. The ileostomy was showing some greenish mucosal sloughing which was debrided. Then the wound was explored and patient was found to have some tear of the sutures used during the second operation. Therefore I placed those 0 PDS sutures to make sure that there is no fascial dehiscence. Then the medial portion of the wound was closed with interrupted 3-0 nylon sutures. Wound VAC was reapplied to facilitate drainage over the lateral portion of the wound. Patient tolerated the procedure well. Anesthesia MAC Pathology / specimen None Estimated Blood Loss 30 Surgeon Riky Sánchez MD Surgical Staff Operation Date: 08/21/25 11:15 Case Staff Anesthesiologist: Patrick Don RNgelatin plant supervisor: Xochilt Robledo
--- NOTE | 2025-08-21 12:40 | SUR.PHASEI ---
pt recovering well, vss, wound vac remains cdi, ileostomy remains cdi. pt denies pain at this time. no distress noted. report given to EUGENE Turner. Pt ready for transfer back to room.
--- NOTE | 2025-08-21 12:59 | SUR.PHASEI ---
pt recovering well, vss, wound vac remains CDI, no drainage noted in ileostomy bag. pt denies any pain. no distress noted. report given to EUGENE Turner. Pt ready for transport.
--- NOTE | 2025-08-21 13:09 | ESPR_ITS ---
Documentation for date of: 08/21/25 Subjective Subjective Interval history: NAEO. Dr. Suggs took patient to surgery today for potential wound closure. Wound was debrided and the medial portion of the wound was closed with nylon sutures. Wound vac was reapplied. Plan to d/c to [facility] acute rehab tomorrow. Exam Vital Signs Temp Pulse Resp BP Pulse Ox O2 Del Method O2 Flow Rate 97.3 F 94 20 111/71 97 Room Air 3 08/21/25 12:47 08/21/25 12:47 08/21/25 12:47 08/21/25 12:47 08/21/25 12:47 08/21/25 08:00 08/11/25 17:05 Narrative Exam General: No acute distress, well nourished Eye: PERRL, EOMI, normal conjunctiva, no scleral icterus HENT: Normocephalic, atraumatic, normal hearing, moist oral mucosa Neck: Supple, non-tender, no JVD, no lymphadenopathy Lungs: Clear to auscultation bilaterally, non-labored respirations, symmetric chest rise, no use of accessory muscles Heart: Normal S1 and S2, no S3 or S4 appreciated. Normal rate and regular rhythm, no murmurs, rubs gallops, or edema. Peripheral pulses intact bilaterally, capillary refill brisk distally Abdomen: TTP of RLQ. Wound vac in place in RLQ, ileostomy bag in place draining brown liquid, necrotic stoma Musculoskeletal: Normal range of motion and strength, no tenderness or swelling Skin: Skin is warm, dry, no rashes or lesions. Neurologic: Alert, awake and oriented x3. CN II-XII grossly intact. No focal neuro deficits. No signs of meningeal irritation noted. Psychiatric: Cooperative, appropriate mood and affect Objective Labs 08/21/25 05:54 08/21/25 05:54 Labs: Laboratory Results - last 24 hr 08/21/25 05:54 WBC 13.4 H RBC 3.64 L Hgb 10.8 L Hct 32.9 L MCV 90 MCH 29.7 MCHC 32.8 RDW Std Deviation 52.9 H Plt Count 499 H Neut % (Auto) 72 Lymph % (Auto) 12 Daniels % (Auto) 8 Eos % (Auto) 3 Baso % (Auto) 1 Neut # (Auto) 9.6 H Lymph # (Auto) 1.6 Daniels # (Auto) 1.1 H Eos # (Auto) 0.4 Baso # (Auto) 0.2 Immature Gran # (Auto) 0.54 H Absolute Nucleated RBC 0.00 Immature Gran % 4 H Nucleated RBC % 0 Sodium 135 L Potassium 4.2 Chloride 100 Carbon Dioxide 24.3 Anion Gap 11 BUN 21 Creatinine 0.5 L Estim Creat Clear Calc 75.7 eGFR > 60 BUN/Creatinine Ratio 42 H Glucose 184 H Calculated Osmolality 278 Calcium 9.3 Corrected Calcium 9.5 Phosphorus 4.2 Magnesium 2.2 Total Bilirubin 0.2 L AST 29 ALT 11 Alkaline Phosphatase 295 H Total Protein 7.2 Albumin 3.8 Globulin 3.4 Albumin/Globulin Ratio 1.1 L ABG Interpretation ABG results: 08/11/25 13:49 ABG pH 7.27 L ABG pCO2 39 ABG pO2 185 H ABG HCO3 18 L ABG O2 Saturation 100 H ABG Base Excess -9 L Quality Measures Quality Measures VTE prophylaxis Advance care planning discussed with:: patient and child Assessment & Plan Assessment Current Active Medications: Generic Name Dose Route Start Last Admin Trade Name Freq PRN Reason Stop Dose Admin Dextrose 25 ml 08/19/25 07:54 Dextrose 50%-Water Inj 50 Ml Syringe IV 09/18/25 07:53 Q15MIN PRN BG 50-70 responsive npo pt Dextrose 50 ml 08/19/25 07:54 Dextrose 50%-Water Inj 50 Ml Syringe IV 09/18/25 07:53 Q15MIN PRN BG <50 OR BG <70 & pt unresponsive Famotidine 20 mg 08/19/25 11:45 08/21/25 09:01 Famotidine 20 Mg Tablet PO 09/18/25 11:44 20 mg QDAY SHAWNA Administration Fentanyl Citrate 50 mcg 08/21/25 11:47 Fentanyl Cit Inj 50 Mcg/Ml Amp 2ml IVP 08/21/25 13:47 Q5MIN PRN PAIN SCALE 4-10(Mod-Sev Glucagon 1 mg 08/19/25 07:54 Glucagon Inj 1 Mg Vial IM Q15MIN PRN BG <70, and no IV access Heparin Sodium (Porcine) 5,000 unit 08/08/25 21:00 08/11/25 09:19 Heparin Sod Inj 5000 Unit/Ml Vial SC 08/22/25 20:59 Not Given On Hold: 08/11/25 16:24 BID SHAWNA Hydralazine HCl 5 mg 08/21/25 11:47 Hydralazine Inj 20 Mg/Ml Vial IV 08/21/25 13:47 Q20MIN PRN SEE COMMENTS Hydromorphone HCl 1 mg 08/19/25 11:41 08/21/25 09:00 Hydromorphone Hcl 2 Mg Tablet PO 08/24/25 10:43 1 mg Q4HR PRN Administration PAIN SCALE 4-6 (Moderate Fat Emulsion Intravenous 500 mls @ 32 mls/hr 08/13/25 18:00 08/20/25 17:49 Intralipid 20% Iv IV 09/12/25 17:59 32 mls/hr [id number] SHAWNA Administration Cefazolin Sodium/Dextrose 1 gm in 50 mls @ 100 mls/hr 08/16/25 14:39 08/21/25 06:45 Ancef Ivpb IV 08/23/25 14:38 100 mls/hr Q8HR SHAWNA Administration Sodium Chloride 90 meq/ 2,034.5 mls @ 60 mls/hr 08/20/25 18:00 08/20/25 17:50 Potassium Chloride 20 meq/ IV 08/21/25 17:59 60 mls/hr Magnesium Sulfate 1 gm/ Amino [id number]@1800 [facility] Administration Acids/Electrolytes Insulin Human Lispro 0 unit 08/19/25 12:00 08/21/25 07:00 Insulin Lispro (Admelog) 1 Unit/0.01 Ml Unit SC 09/18/25 11:59 Not Given Q6HR [facility] Protocol Ondansetron HCl 4 mg 08/08/25 20:59 Ondansetron Inj 2 Mg/Ml Inj 2 Ml IVP 09/07/25 20:58 Q6H PRN NAUSEA OR VOMITING Protocol Pharmacy Consult 1 each 08/12/25 13:20 Pha To Consult Parenteral Nutr 1 Each Each XX 09/11/25 13:19 PRN PRN CONSULT Plan Carla Washington 65F pmhx significant for invasive adenocarcinoma of ascending colon s/p ex lap R hemicolectomy and ilio transverse anastomosis 07/21, prediabetes, anemia presented to [facility] ED on 08/08 with one day of high fevers of 103 deg and vomiting green bilious and one day of burning on urination, admitted for large abdominal abscess, pelvic abscess and UTI. Course complicated by leakage of fecal matter through previous surgical incision site, underwent ex lap with resection of small bowel takedown of anastomosis and diverting ileostomy on 08/11 for multiple small bowel lacerations. #Multiple small bowel lacerations s/p ex lap and resection of small bowl and takedown of anastomosis and diverting ileostomy 08/11 #Invasive adenocarcinoma of ascending colon s/p ex lap R hemicolectomy and ilio transverse anastomosis 07/21 #Abdominal abscess s/p IR drainage 08/10 #Pelvic abscess s/p IR drainage 08/09 #Wound dehiscence #Leukocytosis - downtrending Previous hospitalization 07/18-08/05: diagnosed invasive adenocarcinoma s/p ex lap, started TPN. c/b E coli bacteremia, Enterococcus and Pseudomonas UTI; stool leaking from incision site 07/21 Initial presentation current hospitalization: fever Tmax 103, bilious vomiting 08/08 CTAP; large abscess and soft tissue abdominal wall 16 x 8 x 4.5 cm, prominent colonic and small bowel ileus, suspicious for 8 x 8 cm pelvic abscess. Ex lap 08/11: small bowel lacerations proximal to anastamosis; small bowel (ileal) resection, ileostomy placed at ileal jejunal junction. Incision left open for secondary closure. Received 2U pRBC and 1 dose TXA during surgery CT a/p 07/17: persistent LLL consolidation/atelectasis. Extensive mesenteric edema. Improved right complex fluid collection extending across midline. Resolution of left fluid collection. Residual and new small fluid collection b/l. No free air. No bowel obstruction. 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 Management completed: - Flagyl (08/08) - Cipro (08/08) - Vanc (08/09-08/13) - Micafungin (08/09-08/13) - Zosyn (08/08-08/16) - Cefazolin (08/16 - 08/20) L PICC placed and TPN started 08/12 08/18: wound vac placed on RLQ open wound 08/21: Dr. Suggs closed medial portion of the wound, replaced wound vac Plan: - Surgery consulted, recs appreciated - Dietitian consulted, recs appreciated - Tolerating advanced diet - TPN, q6h blood glucose checks and SSI q6h. TPN to be weaned at acute rehab as patient able to tolerate more PO intake - Dilaudid 1 mg PO q4h PRN. Avoid IV pain meds - Will d/c to SNF when appropriate #Colonic and small bowel ileus CTAP findings as above Plan: - Continue ileostomy bag maintenance #Electrolyte disturbances - resolved Plan: - CTM with daily CMP #Pyuria #Dysuria - resolved Reported 1 day of burning on urination. UA 1+ protein, trace blood, +LE, RBC 4, WBC 30. UCx negative. Plan: - CTM for urinary symptoms - Abx as above #Sinus tachycardia - resolved Initial EKG sinus tachycardia with short MI interval rate 135, QTc 496. Likely 2/2 pain and abscess. Plan: - Med tele for monitoring #Normocytic anemia - stable Likely 2/2 chronic disease of adenocarcinoma. Denies melena, hematochezia or hematemasis. s/p 2 pRBC during surgery Hgb stable Plan: - CTM with daily CBC #Hyperglycemia On TPN, advancing diet Plan: - SSI step 2 q6h Checklist Dispo: Pending acute rehab placement Lines: PIV, L PICC Diet: Dysphagia 2, Ensure Bowel Reg: n/a VTE ppx: SCD GI ppx: n/a Pain mgmt: Dilaudid 1 mg PO q4h PRN Code status: full Plan discussed with Dr. Richy Finch and Dr. Livier Short MD PGY1 Attending Provider Attestation/Addendum Connie, Meldoy Maier DO, attest that I was physically present for the [place] portions of the service and evaluated the patient with the resident and I reviewed and discussed the case with the resident and agree with the resident's findings and plans of care as documented above Patient seen and evaluated this AM. SHe states she is doing well. No acute events overnight. Patient denies any fevers, chills, nausea or vomiting. She reports dry mouth as she is NPO for closure of wound. Case discussed with surgeon, fascial sutures were replaced and few stitches were placed subcutaneously, but wound vac was replaced. Patient can be discharged to acute rehab per surgeon. However, it is the preference of the acute rehab to be off IV pain medicine for at least 24h prior to discharge. Will DC IV dilaudid and patient can use PO dilaudid for pain management. Anticipate DC wtihin next 24h.
[2025-08-21] MEDS: HEPARIN SOD INJ 5000 UNIT/ML VIAL SC (20:44)
[2025-08-21] MEDS: INSULIN LISPRO (AdmeLOG) 1 UNIT/0.01 ML UNIT SC (23:40)
[2025-08-22] VITALS (7 sets, daily range): BP systolic 119–143; BP diastolic 75–85; PULSE 81–102; RESP 16–98; TEMP 36.1–36.6; O2SAT 95–98; BMI 23.3
[2025-08-22] MEDS: HYDROMORPHONE HCL 2 MG TABLET 1 MG PO ×5 (02:24→22:08)
[2025-08-22 05:10] LABS: Basophils # (Auto) 0.2 Thou/mm3 (0.0-0.2); Basophils % (Auto) 2 % (0-2.5); Eosinophils # (Auto) 0.4 Thou/mm3 (0.0-0.5); Eosinophils % (Auto) 3 % (0-10); Hematocrit 31.3 % (36.0-46.0); Hemoglobin 10.1 g/dL (12.0-16.0); Immature Granulocytes Auto 0.27 Thou/mm3 (0.00-0.00); Lymphocytes # (Auto) 1.9 Thou/mm3 (1.0-4.8); Lymphocytes % (Auto) 17 % (10-50); Mean Corpuscular HGB Conc 32.3 g/dl (31.0-37.0); Mean Corpuscular Hemoglobin 29.0 pg (25.0-35.0); Mean Corpuscular Volume 90 fL (80-100); Monocytes # (Auto) 1.0 Thou/mm3 (0.0-0.8); Monocytes % (Auto) 9 % (0-12); Neutrophils # (Auto) 7.3 Thou/mm3 (1.8-7.7); Neutrophils % (Auto) 66 % (37-80); Nucleated Red Blood Cell # 0.00 Thou/mm3 (0.00-0.00); Nucleated Red Blood Cell % 0 /100 WBC (0); Platelet Count 484 Thou/mm3 (140-440); RDW Standard Deviation 53.3 fL (36.4-46.3); Red Blood Count 3.48 Miln/mm3 (4.00-5.20); White Blood Count 10.9 Thou/mm3 (3.6-11.0)
[2025-08-22] MEDS: INSULIN LISPRO (AdmeLOG) 1 UNIT/0.01 ML UNIT SC (05:22)
[2025-08-22 05:51] LABS: Alanine Aminotransferase 12 U/L (10-49); Albumin, Serum 3.7 gm/dL (3.4-4.8); Albumin/Globulin Ratio 1.1 (1.2-2.2); Alkaline Phosphatase 293 U/L (46-116); Anion Gap 6 (7-16); Aspartate Amino Transferase 32 U/L (0-34); BUN/Creatinine Ratio 36 Ratio (12-20); Bilirubin,Total 0.4 mg/dL (0.3-1.2); Blood Urea Nitrogen 18 mg/dL (9-23); Calcium 9.2 mg/dL (8.3-10.6); Calcium (Corrected) 9.4 mg/dL (8.5-10.1); Carbon Dioxide 27.2 mMol/L (20.0-31.0); Chloride 100 mMol/L (98-107); Creatinine (Component) 0.5 mg/dL (0.6-1.3); Estimated Creatinine Clearance 75.7 mL/min (>60); Globulin 3.4 gm/dL (2.3-3.5); Glucose 189 mg/dL (74-106); Magnesium 2.0 mg/dL (1.6-2.6); Osmolality,Calculated 273 (275-295); Phosphorous 4.5 mg/dL (2.4-5.1); Potassium 3.9 mMol/L (3.4-5.1); Sodium 133 mMol/L (136-145); Total Protein 7.1 gm/dL (5.7-8.2); eGFR > 60 See Note
--- NOTE | 2025-08-22 07:57 | PD.RESDS ---
Planned Discharge Date 08/22/25 DS: Providers Provider Date of admission: 08/08/25 20:48 Primary care physician: ERIBERTO Martinez([facility]) Admitting Provider: Paramjit Haddad MD Attending Provider on Admission: Melody Maier DO Consults: 08/08/25 23:41 Referral [place] Routine Comment: Referral Physical Therapy Routine Comment: Physician Instructions: Referral Respiratory Therapy Routine Comment: 08/09/25 00:51 Consult to General Surgery Stat Comment: Consulting Provider: Riky Sánchez 08/09/25 08:13 Referral Registered Dietitian Routine Comment: 08/12/25 13:19 Referral Registered Dietitian Routine Comment: TPN, plan for PICC to be placed today 08/16/25 09:00 Referral Wound Care Routine Comment: Attending Provider on DC: Christine Bond MD Discharging Provider: Christine Bond MD Hospital Course Hospital Course Hospital course: NAEO. Dr. Suggs took patient to surgery today for potential wound closure. Wound was debrided and the medial portion of the wound was closed with nylon sutures. Wound vac was reapplied. Plan to d/c to [facility] acute rehab tomorrow. Time Spent with Patient Time attestation: Total time spent providing and/or coordinating discharge services: Exam Vital Signs Temp Pulse Resp BP Pulse Ox O2 Del Method O2 Flow Rate 97.6 F 83 17 142/82 H 97 Room Air 3 08/22/25 04:00 08/22/25 04:00 08/22/25 04:00 08/22/25 04:00 08/22/25 04:00 08/22/25 04:00 08/11/25 17:05 Discharge Plan Plan Patient Disposition: er Acute Care Fac Service Needed for Transfer: General Surgery Patient condition on transfer: Stable Care Plan Goals: - Follow up with PCP within 1 week of discharge, if you do not have a primary care physician you can come see us at the [facility] by calling [phone] - Continue Tylenol, famotidine, dialudid 1 mg by mouth every 4 hours as needed for pain - Continue total parenteral nutrition through PICC line, may discontinue when pt meets nutritional goal of PO intake - Continue rest of medications as previously prescribed - Return to the ED or call EMS if symptoms return and/or worsen Right to midline horizontal surgical incision: Ileostomy pouching to be changed after wound vac dressing. Please remove pouching and cleanse the skin around with soap and water- removing all adhesive. Cover ileostomy with wet wash cloths, prep wafer to 41mm oval opening and warm wafer while change wound vac dressing than reapply ileostomy pouch. (Also see ileostomy wound orders) Surgical incision: irrigate well with NS, pat dry. Cover base of wound bed with single piece of adaptic. Fill wound bed with black foam. Skin prep to wound edges, drape and trac pad at the lateral aspect at 50mmhg continuous suction. Change Mon/Wed/Fri and PRN for suction off greater than 2 hours. IF unable to keep wound vac seal, remove wound vac dressing and apply NS wet/dry dressing daily until wound vac can be reapplied. Ileostomy Care: change with wound vac dressings changes Mon/Wed/Fri and PRN for leaking Change every 3-5 days or any time wafer appears soiled Have towel at hand Measure out put Peel off the wafer and discard Clean stoma with warm water and mild soap, pat dry Assess skin around stoma for skin breakdown Cut wafer to fit stoma Prepare skin by applying skin barrier and paste Apply wafer by removing backing from wafer and attaching to skin, smooth down to skin and make sure it?s firmly adhere to skin Prescriptions/Referrals Prescriptions/Med Rec: New famotidine 20 mg Tablet 20 mg PO QDAY Qty: 30 0RF hydromorphone 2 mg Tablet 1 mg PO Q4HR MDD 6 PRN (Reason: Pain Scale 4- 10(Moderate) Qty: 30 0RF Continued multivitamin Tablet 1 tab PO QDAY Qty: 30 0RF senna 8.6 mg capsule 8.6 mg PO QDAY Qty: 30 0RF thiamine HCl (vitamin B1) 100 mg capsule 100 mg PO QDAY Qty: 30 0RF acetaminophen 325 mg capsule 650 mg PO Q6H PRN (Reason: fever or pain) Discontinued hydrocodone-acetaminophen 5-325 mg tablet 1 tab PO Q8H MDD 1 tab 3 times daily PRN (Reason: pain) Qty: 10 0RF Referrals: Han CEBALLOS)Ary FNP [Primary Care Provider] Patient/Caregiver Discharge Instructions Print Language: Tanzanian Stand Alone Forms: Brittani Award Info., Patient Portal Info Letter Discharge Order Discharge Orders: Discharge (Routine); Ordered 08/20/25 Ordered By: Heidi Finch
[2025-08-22] MEDS: FAMOTIDINE 20 MG TABLET PO (08:24)
[2025-08-22] MEDS: HEPARIN SOD INJ 5000 UNIT/ML VIAL SC (08:24)
--- NOTE | 2025-08-22 09:43 | PD.RESPRO ---
Documentation for date of: 08/22/25 Subjective Subjective Interval history: pt seen and examined at bedside. she is sitting upright in chair and visually looks uncomfortable 2/2 abdominal pain she has been getting PO dilaudid q4hr. after the secondary closure of you abdominal wound, she had worse pain. scheduled pain medications with plan for discharge tomorrow to snf in [place]. Exam Vital Signs Temp Pulse Resp BP Pulse Ox O2 Del Method O2 Flow Rate 97.0 F 87 19 119/77 95 Room Air 3 08/22/25 08:00 08/22/25 08:00 08/22/25 08:00 08/22/25 08:00 08/22/25 08:00 08/22/25 08:00 08/11/25 17:05 Narrative Exam General: No acute distress, well nourished c/o RLQ pain Eye: PERRL, EOMI, normal conjunctiva, no scleral icterus HENT: Normocephalic, atraumatic, normal hearing, moist oral mucosa Neck: Supple, non-tender, no JVD, no lymphadenopathy Lungs: Clear to auscultation bilaterally, non-labored respirations, symmetric chest rise, no use of accessory muscles Heart: Normal S1 and S2, no S3 or S4 appreciated. Normal rate and regular rhythm, no murmurs, rubs gallops, or edema. Peripheral pulses intact bilaterally, capillary refill brisk distally Abdomen: TTP of RLQ. Wound vac in place in RLQ, ileostomy bag in place draining brown liquid, necrotic stoma Musculoskeletal: Normal range of motion and strength, no tenderness or swelling Skin: Skin is warm, dry, no rashes or lesions. Neurologic: Alert, awake and oriented x3. CN II-XII grossly intact. No focal neuro deficits. No signs of meningeal irritation noted. Psychiatric: Cooperative, appropriate mood and affect Objective Labs 08/22/25 04:45 08/22/25 04:45 Labs: Laboratory Results - last 24 hr 08/22/25 04:45 WBC 10.9 RBC 3.48 L Hgb 10.1 L Hct 31.3 L MCV 90 MCH 29.0 MCHC 32.3 RDW Std Deviation 53.3 H Plt Count 484 H Neut % (Auto) 66 Lymph % (Auto) 17 [place] % (Auto) 9 Eos % (Auto) 3 Baso % (Auto) 2 Neut # (Auto) 7.3 Lymph # (Auto) 1.9 [place] # (Auto) 1.0 H Eos # (Auto) 0.4 Baso # (Auto) 0.2 Immature Gran # (Auto) 0.27 H Absolute Nucleated RBC 0.00 Immature Gran % 3 H Nucleated RBC % 0 Sodium 133 L Potassium 3.9 Chloride 100 Carbon Dioxide 27.2 Anion Gap 6 L BUN 18 Creatinine 0.5 L Estim Creat Clear Calc 75.7 eGFR > 60 BUN/Creatinine Ratio 36 H Glucose 189 H Calculated Osmolality 273 L Calcium 9.2 Corrected Calcium 9.4 Phosphorus 4.5 Magnesium 2.0 Total Bilirubin 0.4 AST 32 ALT 12 Alkaline Phosphatase 293 H Total Protein 7.1 Albumin 3.7 Globulin 3.4 Albumin/Globulin Ratio 1.1 L ABG Interpretation ABG results: 08/11/25 13:49 ABG pH 7.27 L ABG pCO2 39 ABG pO2 185 H ABG HCO3 18 L ABG O2 Saturation 100 H ABG Base Excess -9 L Quality Measures Quality Measures VTE prophylaxis Advance care planning discussed with:: patient Assessment & Plan Assessment Current Active Medications: Generic Name Dose Route Start Last Admin Trade Name Freq PRN Reason Stop Dose Admin Dextrose 25 ml 08/19/25 07:54 Dextrose 50%-Water Inj 50 Ml Syringe IV 09/18/25 07:53 Q15MIN PRN BG 50-70 responsive npo pt Dextrose 50 ml 08/19/25 07:54 Dextrose 50%-Water Inj 50 Ml Syringe IV 09/18/25 07:53 Q15MIN PRN BG <50 OR BG <70 & pt unresponsive Famotidine 20 mg 08/19/25 11:45 08/22/25 08:24 Famotidine 20 Mg Tablet PO 09/18/25 11:44 20 mg QDAY SHAWNA Administration Glucagon 1 mg 08/19/25 07:54 Glucagon Inj 1 Mg Vial IM Q15MIN PRN BG <70, and no IV access Heparin Sodium (Porcine) 5,000 unit 08/08/25 21:00 08/22/25 08:24 Heparin Sod Inj 5000 Unit/Ml Vial SC 08/22/25 20:59 5,000 unit BID SHAWNA Administration Hydromorphone HCl 1 mg 08/19/25 11:41 08/22/25 07:37 Hydromorphone Hcl 2 Mg Tablet PO 08/24/25 10:43 1 mg Q4HR PRN Administration PAIN SCALE 4-6 (Moderate Fat Emulsion Intravenous 500 mls @ 32 mls/hr 08/13/25 18:00 08/20/25 17:49 Intralipid 20% Iv IV 09/12/25 17:59 32 mls/hr [id number]@1800 SHAWNA Administration Multivitamins/Minerals 10 ml/ 1,010 mls @ 45 mls/hr 08/21/25 18:00 08/21/25 17:36 Amino Acids/Electrolytes IV 08/22/25 13:00 45 mls/hr [id number] SHAWNA Administration Potassium Chloride 40 meq/ 2,042 mls @ 45 mls/hr 08/22/25 13:00 Sodium Chloride 80 meq/ IV 08/23/25 17:59 Magnesium Sulfate 1 gm/ Amino QDAY ONE Acids/Electrolytes Insulin Human Lispro 0 unit 08/19/25 12:00 08/22/25 05:22 Insulin Lispro (Admelog) 1 Unit/0.01 Ml Unit SC 09/18/25 11:59 2 unit Q6HR SHAWNA Administration Protocol Ondansetron HCl 4 mg 08/08/25 20:59 Ondansetron Inj 2 Mg/Ml Inj 2 Ml IVP 09/07/25 20:58 Q6H PRN NAUSEA OR VOMITING Protocol Pharmacy Consult 1 each 08/12/25 13:20 Pha To Consult Parenteral Nutr 1 Each Each XX 09/11/25 13:19 PRN PRN CONSULT Plan Carla Washington 65F pmhx significant for invasive adenocarcinoma of ascending colon s/p ex lap R hemicolectomy and ilio transverse anastomosis 07/21, prediabetes, anemia presented to [facility] ED on 08/08 with one day of high fevers of 103 deg and vomiting green bilious and one day of burning on urination, admitted for large abdominal abscess, pelvic abscess and UTI. Course complicated by leakage of fecal matter through previous surgical incision site, underwent ex lap with resection of small bowel takedown of anastomosis and diverting ileostomy on 08/11 for multiple small bowel lacerations. #Multiple small bowel lacerations s/p ex lap and resection of small bowl and takedown of anastomosis and diverting ileostomy 08/11 #Invasive adenocarcinoma of ascending colon s/p ex lap R hemicolectomy and ilio transverse anastomosis 07/21 #Abdominal abscess s/p IR drainage 08/10 #Pelvic abscess s/p IR drainage 08/09 #Wound dehiscence #Leukocytosis - downtrending Previous hospitalization 07/18-08/05: diagnosed invasive adenocarcinoma s/p ex lap, started TPN. c/b E coli bacteremia, Enterococcus and Pseudomonas UTI; stool leaking from incision site 07/21 Initial presentation current hospitalization: fever Tmax 103, bilious vomiting 08/08 CTAP; large abscess and soft tissue abdominal wall 16 x 8 x 4.5 cm, prominent colonic and small bowel ileus, suspicious for 8 x 8 cm pelvic abscess. Ex lap 08/11: small bowel lacerations proximal to anastamosis; small bowel (ileal) resection, ileostomy placed at ileal jejunal junction. Incision left open for secondary closure. Received 2U pRBC and 1 dose TXA during surgery CT a/p 07/17: persistent LLL consolidation/atelectasis. Extensive mesenteric edema. Improved right complex fluid collection extending across midline. Resolution of left fluid collection. Residual and new small fluid collection b/l. No free air. No bowel obstruction. 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 Management completed: - Flagyl (08/08) - Cipro (08/08) - Vanc (08/09-08/13) - Micafungin (08/09-08/13) - Zosyn (08/08-08/16) - Cefazolin (08/16 - 08/20) L PICC placed and TPN started 08/12 08/18: wound vac placed on RLQ open wound 08/21: Dr. Suggs closed medial portion of the wound, replaced wound vac Plan: - Surgery consulted, recs appreciated - Dietitian consulted, recs appreciated - Tolerating advanced diet - TPN, q6h blood glucose checks and SSI q6h. TPN to be weaned at acute rehab as patient able to tolerate more PO intake - Dilaudid 1 mg PO q4h scheduled, APAP 650 scheduled q6hr. Avoid IV pain meds - Will d/c to SNF when appropriate #Colonic and small bowel ileus CTAP findings as above Plan: - Continue ileostomy bag maintenance #Electrolyte disturbances - resolved Plan: - CTM with daily CMP #Pyuria #Dysuria - resolved Reported 1 day of burning on urination. UA 1+ protein, trace blood, +LE, RBC 4, WBC 30. UCx negative. Plan: - CTM for urinary symptoms - Abx as above #Sinus tachycardia - resolved Initial EKG sinus tachycardia with short VA interval rate 135, QTc 496. Likely 2/2 pain and abscess. Plan: - Med tele for monitoring #Normocytic anemia - stable Likely 2/2 chronic disease of adenocarcinoma. Denies melena, hematochezia or hematemasis. s/p 2 pRBC during surgery Hgb stable Plan: - CTM with daily CBC #Hyperglycemia On TPN, advancing diet Plan: - SSI step 2 q6h Checklist Dispo: Pending acute rehab placement Lines: PIV, L PICC Diet: Dysphagia 2, Ensure Bowel Reg: n/a VTE ppx: SCD GI ppx: n/a Pain mgmt: Dilaudid 1 mg PO q4h scheduled + APAP 650 q6hr scheduled Code status: full Plan discussed with my attending Dr. Livier Bond MD PGY1 Attending Provider Attestation/Addendum I, Melody Maier, , attest that I was physically present for the [place] portions of the service and evaluated the patient with the resident and I reviewed and discussed the case with the resident and agree with the resident's findings and plans of care as documented above Patient seen and evaluated this AM. Patient is sitting up in recliner and reports pulsating pain at site of incision. She is visibly uncomfortable and appears to be in a lot of pain. Patient has been off IV pain medicine, which has caused her to have more discomfort. Will schedule dilaudid q4h for better pain control. Will also add tylenol and uptitrate pain meds as needed. Anticipate DC within next 24h if patient appears improved.
[2025-08-22] MEDS: ACETAMINOPHEN 325 MG TABLET 650 MG PO ×3 (11:49→23:49)
[2025-08-23] VITALS: BP 118/79; PULSE 80; PULSE 87; RESP 15; TEMP 36.1; O2SAT 97
[2025-08-23] MEDS: HYDROMORPHONE HCL 2 MG TABLET 1 MG PO ×4 (01:58→15:05)
[2025-08-23 04:00] VITALS: BP 145/88; PULSE 93; RESP 15; TEMP 35.9; O2SAT 96
[2025-08-23 05:21] LABS: Basophils # (Auto) 0.2 Thou/mm3 (0.0-0.2); Basophils % (Auto) 2 % (0-2.5); Eosinophils # (Auto) 0.4 Thou/mm3 (0.0-0.5); Eosinophils % (Auto) 4 % (0-10); Hematocrit 30.0 % (36.0-46.0); Hemoglobin 9.8 g/dL (12.0-16.0); Immature Granulocytes Auto 0.26 Thou/mm3 (0.00-0.00); Lymphocytes # (Auto) 2.2 Thou/mm3 (1.0-4.8); Lymphocytes % (Auto) 20 % (10-50); Mean Corpuscular HGB Conc 32.7 g/dl (31.0-37.0); Mean Corpuscular Hemoglobin 29.1 pg (25.0-35.0); Mean Corpuscular Volume 89 fL (80-100); Monocytes # (Auto) 1.1 Thou/mm3 (0.0-0.8); Monocytes % (Auto) 10 % (0-12); Neutrophils # (Auto) 6.7 Thou/mm3 (1.8-7.7); Neutrophils % (Auto) 62 % (37-80); Nucleated Red Blood Cell # 0.00 Thou/mm3 (0.00-0.00); Nucleated Red Blood Cell % 0 /100 WBC (0); Platelet Count 527 Thou/mm3 (140-440); RDW Standard Deviation 52.6 fL (36.4-46.3); Red Blood Count 3.37 Miln/mm3 (4.00-5.20); White Blood Count 10.8 Thou/mm3 (3.6-11.0)
[2025-08-23 05:39] LABS: Alanine Aminotransferase 15 U/L (10-49); Albumin, Serum 3.9 gm/dL (3.4-4.8); Albumin/Globulin Ratio 1.1 (1.2-2.2); Alkaline Phosphatase 296 U/L (46-116); Anion Gap 7 (7-16); Aspartate Amino Transferase 31 U/L (0-34); BUN/Creatinine Ratio 40 Ratio (12-20); Bilirubin,Total 0.3 mg/dL (0.3-1.2); Blood Urea Nitrogen 20 mg/dL (9-23); Calcium 9.9 mg/dL (8.3-10.6); Calcium (Corrected) 10.0 mg/dL (8.5-10.1); Carbon Dioxide 29.3 mMol/L (20.0-31.0); Chloride 97 mMol/L (98-107); Creatinine (Component) 0.5 mg/dL (0.6-1.3); Estimated Creatinine Clearance 75.8 mL/min (>60); Globulin 3.7 gm/dL (2.3-3.5); Glucose 145 mg/dL (74-106); Magnesium 2.1 mg/dL (1.6-2.6); Osmolality,Calculated 271 (275-295); Phosphorous 4.9 mg/dL (2.4-5.1); Potassium 4.4 mMol/L (3.4-5.1); Sodium 133 mMol/L (136-145); Total Protein 7.6 gm/dL (5.7-8.2); eGFR > 60 See Note
[2025-08-23] MEDS: ACETAMINOPHEN 325 MG TABLET 650 MG PO ×2 (05:56→12:22)
[2025-08-23 08:00] VITALS: BP 140/83; PULSE 102; PULSE 88; RESP 17; TEMP 36.6; O2SAT 97
--- NOTE | 2025-08-23 08:41 | ESDS_ITS ---
<Statement entered by Melody Maier DO - 08/23/25 16:34> I, Melody Maier DO, attest that I was physically present for the [place] portions of the service and evaluated the patient with the resident and I reviewed and discussed the case with the resident and agree with the resident's findings and plans of care as documented above Planned Discharge Date 08/23/25 DS: Providers Provider Date of admission: 08/08/25 20:48 Primary care physician: ERIBERTO Martinez([facility]) Admitting Provider: Paramjit Haddad MD Attending Provider on Admission: Melody Maier DO Consults: 08/08/25 23:41 Referral [place] Routine Comment: Referral Physical Therapy Routine Comment: Physician Instructions: Referral Respiratory Therapy Routine Comment: 08/09/25 00:51 Consult to General Surgery Stat Comment: Consulting Provider: Riky Sánchez 08/09/25 08:13 Referral Registered Dietitian Routine Comment: 08/12/25 13:19 Referral Registered Dietitian Routine Comment: TPN, plan for PICC to be placed today 08/16/25 09:00 Referral Wound Care Routine Comment: Attending Provider on DC: Melody Maier DO Discharging Provider: Melody Maier DO DS: Diagnosis Problem List Completed Was Problem List Reviewed/Reconciled?: Yes Hospital Course Hospital Course Hospital course: Hospital Course Ms. Washington is a 65-year-old woman past medical history of invasive adenocarcinoma of the ascending colon s/p ex lap right hemicolectomy and ileotransverse anastomosis on 07/21 who presented from SNF to the ED on 08/08 with fevers, chills, sudden onset abdominal pain, and dysuria. Urine culture NGTD. Imaging showed large abdominal and pelvic abscess as well as colonic and small bowel ileus. NG tube was placed for SBO. Abscesses were successfully drained by IR and IV antibiotics and antifungals were started given possible immunocompromised status. Hospital course complicated by leakage of bowel secondary to anastomosis disruption and wound dehiscence. Dr. Suggs was consulted and an ex lap was performed on 08/11 with resection of small bowel 2/2 multiple lacerations and takedown of anastomosis with diverting ileostomy. Incision was left open for secondary closure. 2U pRBC and 1 dose of TXA with calcium gluconate was given during surgery. Wound culture grew Klebsiella, and patient completed a course of Cefazolin IV with downtrending leukocytosis and resolution of fever. A PICC line was placed for TPN starting 08/12. Repeat CT revealved extensive mesenteric edema but improved right complex fluid collection, resolution of left fluid collection. Wound vac was placed on right lower abdominal open wound on 08/18. Wound was closed with secondary intention on 08/21 and wound vac was replaced. Pain was managed with oral APAP q6hr and po dilaudid 1mg q4hr scheduled. Oral diet was advanced as tolerated, she continues on TPN, with plan to wean. Patient will be discharged to [facility] acute rehab. Appr opriate transfer was set up for safe discharge. Patient stable and medically cleared for discharge. Diagnoses #Multiple small bowel lacerations s/p ex lap and resection of small bowl and takedown of anastomosis and diverting ileostomy 08/11 #Invasive adenocarcinoma of ascending colon s/p ex lap R hemicolectomy and ilio transverse anastomosis 07/21 #Abdominal abscess s/p IR drainage 08/10 #Pelvic abscess s/p IR drainage 08/09 #Wound dehiscence #Leukocytosis - downtrending #Colonic and small bowel ileus #Electrolyte disturbances - resolved #Pyuria #Dysuria - resolved #Sinus tachycardia - resolved #Normocytic anemia - stable #Hyperglycemia Discharge instructions - Follow up with PCP within 1 week of discharge, if you do not have a primary ca re physician you can come see us at the [facility] by calling [phone] - Continue Tylenol, famotidine, dialudid 1 mg by mouth every 4 hours as needed for pain - Continue total parenteral nutrition through PICC line, may discontinue when pt meets nutritional goal of PO intake - Continue rest of medications as previously prescribed - Return to the ED or call EMS if symptoms return and/or worsen Right to midline horizontal surgical incision: Ileostomy pouching to be changed after wound vac dressing. Please remove pouching and cleanse the skin around with soap and water- removing all adhesive. Cover ileostomy with wet wash cloths, prep wafer to 41mm oval opening and warm wafer while change wound vac dressing than reapply ileostomy pouch. (Also see ileostomy wound orders) Surgical incision: irrigate well with NS, pat dry. Cover base of wound bed with single piece of adaptic. Fill wound bed with black foam. Skin prep to wound edges, drape and trac pad at the lateral aspect at 50mmhg continuous suction. Change Mon/Wed/Fri and PRN for suction off greater than 2 hours. IF unable to keep wound vac seal, remove wound vac dressing and apply NS wet/dry dressing daily until wound vac can be reapplied. Ileostomy Care: change with wound vac dressings changes Mon/Wed/Fri and PRN for leaking Change every 3-5 days or any time wafer appears soiled Have towel at hand Measure out put Peel off the wafer and discard Clean stoma with warm water and mild soap, pat dry Assess skin around stoma for skin breakdown Cut wafer to fit stoma Prepare skin by applying skin barrier and paste Apply wafer by removing backing from wafer and attaching to skin, smooth down to skin and make sure it?s firmly adhere to skin Plan discussed with my attending Dr. Livier Bond MD PGY1 Time Spent with Patient Time attestation: Total time spent providing and/or coordinating discharge services: Time spent: Greater than 30 minutes Exam Vital Signs Temp Pulse Resp BP Pulse Ox O2 Del Method O2 Flow Rate 97.8 F 88 17 140/83 H 97 Room Air 3 08/23/25 08:00 08/23/25 08:00 08/23/25 08:00 08/23/25 08:00 08/23/25 08:00 08/23/25 08:00 08/11/25 17:05 Narrative Exam General: No acute distress, well nourished c/o RLQ pain Eye: PERRL, EOMI, normal conjunctiva, no scleral icterus HENT: Normocephalic, atraumatic, normal hearing, moist oral mucosa Neck: Supple, non-tender, no JVD, no lymphadenopathy Lungs: Clear to auscultation bilaterally, non-labored respirations, symmetric chest rise, no use of accessory muscles Heart: Normal S1 and S2, no S3 or S4 appreciated. Normal rate and regular rhythm, no murmurs, rubs gallops, or edema. Peripheral pulses intact bilaterally, capillary refill brisk distally Abdomen: TTP of RLQ. Wound vac in place in RLQ, ileostomy bag in place draining brown liquid, necrotic stoma Musculoskeletal: Normal range of motion and strength, no tenderness or swelling Skin: Skin is warm, dry, no rashes or lesions. Neurologic: Alert, awake and oriented x3. CN II-XII grossly intact. No focal neuro deficits. No signs of meningeal irritation noted. Psychiatric: Cooperative, appropriate mood and affect Discharge Plan Plan Patient Disposition: [facility] Service Needed for Transfer: General Surgery Patient condition on transfer: Stable Care Plan Goals: - Follow up with PCP within 1 week of discharge, if you do not have a primary care physician you can come see us at the [facility] by calling [phone] - Continue Tylenol, famotidine, dialudid 1 mg by mouth every 4 hours as needed for pain - Continue total parenteral nutrition through PICC line, may discontinue when pt meets nutritional goal of PO intake - Continue rest of medications as previously prescribed - Return to the ED or call EMS if symptoms return and/or worsen Right to midline horizontal surgical incision: Ileostomy pouching to be changed after wound vac dressing. Please remove pouching and cleanse the skin around with soap and water- removing all adhesive. Cover ileostomy with wet wash cloths, prep wafer to 41mm oval opening and warm wafer while change wound vac dressing than reapply ileostomy pouch. (Also see ileostomy wound orders) Surgical incision: irrigate well with NS, pat dry. Cover base of wound bed with single piece of adaptic. Fill wound bed with black foam. Skin prep to wound edges, drape and trac pad at the lateral aspect at 50mmhg continuous suction. Change Mon/Wed/Fri and PRN for suction off greater than 2 hours. IF unable to keep wound vac seal, remove wound vac dressing and apply NS wet/dry dressing daily until wound vac can be reapplied. Ileostomy Care: change with wound vac dressings changes Mon/Wed/Fri and PRN for leaking Change every 3-5 days or any time wafer appears soiled Have towel at hand Measure out put Peel off the wafer and discard Clean stoma with warm water and mild soap, pat dry Assess skin around stoma for skin breakdown Cut wafer to fit stoma Prepare skin by applying skin barrier and paste Apply wafer by removing backing from wafer and attaching to skin, smooth down to skin and make sure it?s firmly adhere to skin Prescriptions/Referrals Prescriptions/Med Rec: New famotidine 20 mg Tablet 20 mg PO QDAY Qty: 30 0RF hydromorphone [Dilaudid] 2 mg tablet 2 mg PO Q4H MDD 6 PRN (Reason: pain 4-10) Qty: 30 0RF Continued multivitamin Tablet 1 tab PO QDAY Qty: 30 0RF senna 8.6 mg capsule 8.6 mg PO QDAY Qty: 30 0RF thiamine HCl (vitamin B1) 100 mg capsule 100 mg PO QDAY Qty: 30 0RF acetaminophen 325 mg capsule 650 mg PO Q6H PRN (Reason: fever or pain) Discontinued hydrocodone-acetaminophen 5-325 mg tablet 1 tab PO Q8H MDD 1 tab 3 times daily PRN (Reason: pain) Qty: 10 0RF Referrals: Han CEBALLOS)Ary FNP [Primary Care Provider] Patient/Caregiver Discharge Instructions Print Language: Wallisian Stand Alone Forms: Brittani Award Info., Patient Portal Info Letter Discharge Order Discharge Orders: Discharge (Routine); Ordered 08/23/25 Ordered By: Heidi Finch Quality Discharge Quality Measures VTE prophylaxis
[2025-08-23 09:00] VITALS: BMI 23.3
[2025-08-23] MEDS: FAMOTIDINE 20 MG TABLET PO (09:11)
[2025-08-23 11:00] VITALS: RESP 97
--- NOTE | 2025-08-23 11:26 | PC.SS ---
Follow up note: SS met with patient and daughter in law at bedside to answer their questions about discharge. Patient was held over weekend to monitor pain control. [facility] was provided all updated clinicals this morning. They are working on a transportation time. They will call me back with pickling operator time. Physician team updated.
[2025-08-23 12:00] VITALS: BP 128/76; PULSE 110; PULSE 94; RESP 18; TEMP 36.5; O2SAT 96
[2025-08-23 16:00] VITALS: BP 126/82; PULSE 89; RESP 18; TEMP 36.6; O2SAT 97
== END 2025-08-23 17:30 | disposition short-term general hospital (02) | DRG 981 ==
LOC: SERX 19:27 → SERHOLD 08-09 06:24 → S3SX 08-09 06:24
PROVIDERS: Anesthesiology; Radiology Diagnostic Radiology; Registered Nurse General Practice; Student in an Organized Health Care Education/Training Program; Surgery; Admitting Provider Student in an Organized Health Care Education/Training Program; Emergency Provider Emergency Medicine; PCP Nurse Practitioner Primary Care; Visit Provider Internal Medicine
PROC: (CPT 49000; principal; 2025-08-11 10:30)
DX: L02.211 Cutaneous abscess of abdominal wall (principal); J18.9 Pneumonia, unspecified organism; K65.1 Peritoneal abscess; K56.7 Ileus, unspecified; N39.0 Urinary tract infection, site not specified; E87.0 Hyperosmolality and hypernatremia; K56.50 Intestinal adhesions [bands], unspecified as to partial versus complete obstruction; B96.20 Unspecified Escherichia coli [E. coli] as the cause of diseases classified elsewhere; F32.A Depression, unspecified; E87.6 Hypokalemia; B96.1 Klebsiella pneumoniae [K. pneumoniae] as the cause of diseases classified elsewhere; D64.9 Anemia, unspecified; N73.9 Female pelvic inflammatory disease, unspecified; Z90.49 Acquired absence of other specified parts of digestive tract; Z93.3 Colostomy status
CPT/HCPCS: 36415; 36600; 51701; 71045; 74176; 74177; 75989; 80051; 80053; 80061; 80069; 80202; 81001; 82803; 83605; 83615; 83690; 83735; 83880; 84100; 84132; 84145; 84484; 85025; 85610; 85730; 86850; 86900; 86901; 86920; 87040; 87070; 87077; 87081; 87086; 87186; 87205; 87502; 87811; 93005; 93225; 97161; 99284; A4649; C1769; C1894; J0131; J0612; J0689; J0744; J1100; J1171; J1642; J1644; J1815; J2247; J2250; J2270; J2371; J2405; J2543; J2704; J2765; J3010; J3373; J3411; J3475; J3480; J3490; J7030; J7050; J7070; J7120; J7131; J7999; P9016; P9045; P9047; Q9967; A9270; C1725; J1836; P0947

== ENCOUNTER 2025-09-02 17:07 | Emergency (ER) | payer MEDICARE, MEDICAID, SELFPAY ==
[2025-09-02] VITALS (7 sets, daily range): BP systolic 91–112; BP diastolic 49–64; PULSE 72–101; RESP 14–83; TEMP 36.5–36.6; O2SAT 98–100; BMI 22.0
--- NOTE | 2025-09-02 17:20 | PC.NURSE ---
Pt. here from home to room 19, pt. states she is having abdominal pain at her incision site in her abdomen, dressing is dry and intact, colostomy is intact and has green liquid BM in bag. Pt. has no SOB or distress at this time. Per catering assistant Greene pt.'s family wants pt. admitted to [facility] so she can have 24/7 care.
--- NOTE | 2025-09-02 17:38 | EKG_ITS ---
[facility] Test Date: 2025-09-02 Pat Name: WILMAN ALCALA Department: Room: - Gender: Female Canary Breeder: : 1960 Requested By: Flex Akers Order Number: [id number] Reading MD: Flex Akers Measurements Intervals [place] Rate: 72 P: 54 WV: 150 QRS: 55 QRSD: 89 T: 53 QT: 382 QTc: 419 Interpretive Statements SINUS RHYTHM Compared to ECG 08/08/2025 16:54:08 Sinus tachycardia no longer present Short WV interval no longer present T-wave abnormality no longer present /store/S0/[id number]/ecg/[id number].pdf
--- NOTE | 2025-09-02 17:38 | XR_ITS ---
EXAMINATION: AP chest single view TECHNIQUE: AP portable upright chest single view Date and time: September 02, 2025, 1757 hours, comparison August 08, 2025 INDICATIONS: Difficulty breathing today, clinical diagnosis aspiration pneumonia FINDINGS: Subsegmental atelectasis left base, no definite pneumonia on the current study Normal heart size Moderate osteopenia IMPRESSION: No definite pneumonia on the current study
--- NOTE | 2025-09-02 17:41 | PD.EDABDPN ---
ED Abdominal Pain RME/HPI General Chief Complaint: Abdominal Pain Stated complaint: ABDOMINAL PAIN Time seen by provider: 09/02/25 17:14 Arrival date/time: 09/02/25 17:07 65-year-old woman past medical history of invasive adenocarcinoma of the ascending colon s/p ex lap right hemicolectomy and ileotransverse anastomosis on 07/21 ,, status post ex lap and intestinal resection on 08/11, with open abdominal wound for secondary healing, was sent to us from home requesting retirement placement. Apparently patient was sent to [facility], stayed there for 14 days, and after 10 days patient was kicked out and was discharged home. Patient was discharged home today, when the patient arrived patient was brought again here asking for more nursing placement they wanted the patient to be admitted in [facility] on my initial evaluation patient is complaining of abdominal pain, asking for pain medication. No vomiting noted no fever noted Related Data Home Medications ?Medication ?Instructions ?Recorded ?Confirmed acetaminophen 325 mg capsule 650 mg PO Q6H PRN fever or pain 08/09/25 08/09/25 Previous Rx's ?Medication ?Instructions ?Recorded multivitamin 1 tab PO QDAY #30 tabs 08/05/25 sennosides 8.6 mg capsule (senna) 8.6 mg PO QDAY #30 caps 08/05/25 thiamine HCl (vitamin B1) 100 mg 100 mg PO QDAY #30 caps 08/05/25 capsule famotidine 20 mg tablet 20 mg PO QDAY #30 tabs 08/20/25 hydromorphone 2 mg tablet 2 mg PO Q4H PRN pain 4-10 #30 tabs 08/23/25 (Dilaudid) Allergies Allergy/AdvReac Type Severity Reaction Status Date / Time No Known Allergies Allergy Verified 09/02/25 17:38 Review of Systems Review of Systems Narrative Review of Systems: Review of system reviewed and within normal limits except mentioned in HPI ED Exam Narrative Physical exam: VITAL SIGNS: Reviewed. GENERAL APPEARANCE: Alert and interactive, follows commands, no acute distress, HEAD AND FACE: Non-traumatic. ENT: PERRL, pink conjunctivitis, eyelid no trauma, Mucous membrane moist. NECK: Supple, nontender, no nuchal rigidity. CHEST: No tenderness, no crepitus, no paradoxical movement, no retractions. LUNGS: Clear, well ventilated, symmetric, no rales, no wheezing, no ronchi, no stridor, good breath sounds bilaterally. HEART: Regular rate, regular rhythm, no murmur, no gallops. ABDOMEN: Soft, positive bowel sounds, nondistended, no guarding, diffuse tenderness, transverse incision with dressing noted, ileostomy noted to the left, with good amount of liquid stool noted, no rebound, no masses, RECTAL: Deferred. GENITAL: Deferred. NEUROLOGICAL: Gross motor function intact sensory function intact, Appropriate for age. MUSCULOSKELETAL: low back nontender, full range of motion. EXTREMITIES: Nontender, full range of motion. SKIN: Color pink, dry, no rash, no lacerations, no abrasions, no contusions. LYMPHATICS: Deferred. Course Quality Measures none Orders Category Date Time Status COVID-19 Screening Questionnaire NOW Care 09/02/25 22:[address] Screening NOW Care 09/02/25 18:35 Active Decision to Admit X1 Care 09/02/25 22:07 Completed EKG (ED ONLY) *Do not use* NOW Care 09/02/25 17:[address] abdomen pelvis w con Stat Exams 09/02/25 18:35 Completed EKG (ED Only) Stat Exams 09/02/25 17:38 Draft XR chest 1V Stat Exams 09/02/25 17:38 Completed CBC Stat Lab 09/02/25 17:45 Completed Comprehensive Metabolic Panel Stat Lab 09/02/25 17:45 Completed Partial Thromboplastin Time Stat Lab 09/02/25 17:45 Completed Urinalysis, C/S if Indicated Stat Lab 09/02/25 17:38 Ordered Morphine* Inj Med 09/02/25 23:09 Active 4 mg IVP Q4HR PRN Morphine* Inj Med 09/02/25 17:39 Discontinued 4 mg IVP X1 ONE Ondansetron Inj [Zofran Inj] Med 09/02/25 17:38 Discontinued 4 mg IVP X1 ONE Potassium Chloride [K-Dur] Med 09/02/25 22:07 Discontinued 40 meq PO X1 ONE Ringers Lactated 1000 ml [Lactated Ringers] 1,000 ml Med 09/02/25 23:09 Active IV 125 mls/hr Ringers Lactated 1000 ml [Lactated Ringers] 1,000 ml Med 09/02/25 17:38 Discontinued IV 999 mls/hr Ringers Lactated 1000 ml [Lactated Ringers] 1,000 ml Med 09/02/25 22:07 Discontinued IV 999 mls/hr Referral Social Media Specialist NOW 09/02/25 23:10 Active Vital Signs Vital signs: Vital Signs Temperature 97.7 F 09/02/25 17:09 Pulse Rate 87 09/02/25 17:09 Respiratory Rate 18 09/02/25 17:09 Blood Pressure 112/64 09/02/25 17:09 Pulse Oximetry (%) 98 09/02/25 17:09 Oxygen Delivery Method Room Air 09/02/25 17:09 Abdominal Pain MDM MDM Narrative MDM Narrative:: 65-year-old woman past medical history of invasive adenocarcinoma of the ascending colon s/p ex lap right hemicolectomy and ileotransverse anastomosis on 07/21 ,, status post ex lap and intestinal resection on 08/11, with open abdominal wound for secondary healing, was sent to us from home requesting retirement placement. Apparently patient was sent to [facility], stayed there for 14 days, and after 10 days patient was kicked out and was discharged home. Patient was discharged home today, when the patient arrived patient was brought again here asking for more nursing placement they wanted the patient to be admitted in [facility] on my initial evaluation patient is complaining of abdominal pain, asking for pain medication. No vomiting noted no fever noted I did workup today for the patient, including CT scan of the abdomen and pelvis, it came back with no acute pathology. Plan of care discussed with the family, who is not willing to bring the patient home because according to them nobody knows how to do the TPN, and patient needs help and both of her son are working. Patient will be left alone in the house according to them. Spoke with hospitalist on-call and told me that patient needs to be referred to social work in the morning for disposition and help . I talked to the son again and agreeable for social work manager referral In the morning Care transferred to Dr Jose for final disposition Patient data External records reviewed:: None Clinical information provided by:: patient Social determinants that could affect healthcare access:: none Patient has the following chronic illnesses:: Status post recent abdominal surgery complicated How is presenting disease/condition affected by chronic disease/condition?: exacerbated by Evaluation data The following diagnostics were reviewed and interpreted by me:: lab results, radiology exam(s) and EKG tracing(s) Lab and/or radiology exams considered but not ordered:: None Interpretation Summary: See above see above Medications / Prescriptions Medications or Prescriptions considered but not ordered:: None Medication administrations:: Medication Administration History Lactated Ringer's (Lactated Ringers) 1,000 mls @ 125 mls/hr IV .Q8H ONE Stop: 09/03/25 07:08 Morphine Sulfate (Morphine Sulf Inj 4 Mg/Ml Vial) 4 mg IVP Q4HR PRN PRN Reason: AGITATION OR PAIN 1-10 Stop: 09/07/25 23:08 Discontinued Medications Lactated Ringer's (Lactated Ringers) 1,000 mls @ 999 mls/hr IV .Q1H1M ONE Stop: 09/02/25 18:38 Last Infusion: 09/02/25 19:09 Dose: Infused Documented By: Admin: 09/02/25 18:08 Dose: 999 mls/hr Documented By: SR Lactated Ringer's (Lactated Ringers) 1,000 mls @ 999 mls/hr IV .Q1H1M ONE Stop: 09/02/25 23:07 Morphine Sulfate (Morphine Sulf Inj 4 Mg/Ml Vial) 4 mg IVP X1 ONE Stop: 09/02/25 17:40 Last Admin: 09/02/25 18:07 Dose: 4 mg Documented By: SR Ondansetron HCl (Ondansetron Inj 2 Mg/Ml Inj 2 Ml) 4 mg IVP X1 ONE; Protocol Stop: 09/02/25 17:39 Last Admin: 09/02/25 18:07 Dose: 4 mg Documented By: SR Potassium Chloride (Potassium Chloride 20 Meq Tabcr) 40 meq PO X1 ONE Stop: 09/02/25 22:08 See above Consultations Consultation(s) initiated? (list below): No Diagnosis Differential diagnosis abdominal pain: abdominal pain and other (Social issues) Most likely diagnosis given after review of the tests above:: Abdominal pain Admission Indicated Admission indicated?: not indicated Admission Request Was there a request for admission?: No Disposition Plan Disposition Plan: other (specify) Discharge Plan Prescriptions/Referrals Prescriptions/Med Rec: No Action multivitamin Tablet 1 tab PO QDAY Qty: 30 0RF senna 8.6 mg capsule 8.6 mg PO QDAY Qty: 30 0RF thiamine HCl (vitamin B1) 100 mg capsule 100 mg PO QDAY Qty: 30 0RF acetaminophen 325 mg capsule 650 mg PO Q6H PRN (Reason: fever or pain) famotidine 20 mg Tablet 20 mg PO QDAY Qty: 30 0RF hydromorphone [Dilaudid] 2 mg tablet 2 mg PO Q4H MDD 6 PRN (Reason: pain 4-10) Qty: 30 0RF Referrals: Han (SCARLETT)Ary, MARKETING AUTOMATION SPECIALIST [Primary Care Provider] - In 1 week Problem List Clinical Impression: Abdominal pain Patient/Caregiver Discharge Instructions Print Language: Turkish
[2025-09-02 17:54] LABS: Basophils # (Auto) 0.1 Thou/mm3 (0.0-0.2); Basophils % (Auto) 1 % (0-2.5); Eosinophils # (Auto) 0.4 Thou/mm3 (0.0-0.5); Eosinophils % (Auto) 4 % (0-10); Hematocrit 36.0 % (36.0-46.0); Hemoglobin 11.9 g/dL (12.0-16.0); Immature Granulocytes Auto 0.09 Thou/mm3 (0.00-0.00); Lymphocytes # (Auto) 1.6 Thou/mm3 (1.0-4.8); Lymphocytes % (Auto) 20 % (10-50); Mean Corpuscular HGB Conc 33.1 g/dl (31.0-37.0); Mean Corpuscular Hemoglobin 29.3 pg (25.0-35.0); Mean Corpuscular Volume 89 fL (80-100); Monocytes # (Auto) 0.8 Thou/mm3 (0.0-0.8); Monocytes % (Auto) 10 % (0-12); Neutrophils # (Auto) 5.0 Thou/mm3 (1.8-7.7); Neutrophils % (Auto) 63 % (37-80); Nucleated Red Blood Cell # 0.00 Thou/mm3 (0.00-0.00); Nucleated Red Blood Cell % 0 /100 WBC (0); Platelet Count 226 Thou/mm3 (140-440); RDW Standard Deviation 48.6 fL (36.4-46.3); Red Blood Count 4.06 Miln/mm3 (4.00-5.20); White Blood Count 7.9 Thou/mm3 (3.6-11.0)
[2025-09-02 18:05] LABS: Partial Thromboplastin Time 26.4 Seconds (22.0-36.0)
[2025-09-02] MEDS: ONDANSETRON INJ 2 MG/ML INJ 2 ML 4 MG IVP (18:07)
[2025-09-02] MEDS: MORPHINE SULF INJ 4 MG/ML VIAL IVP (18:07)
[2025-09-02] MEDS: RINGERS LACTATED 1000 ML 1,000 ML 999 ML IV (18:08)
[2025-09-02 18:12] LABS: Alanine Aminotransferase 19 U/L (10-49); Albumin, Serum 3.9 gm/dL (3.4-4.8); Albumin/Globulin Ratio 1.1 (1.2-2.2); Alkaline Phosphatase 247 U/L (46-116); Anion Gap 9 (7-16); Aspartate Amino Transferase 35 U/L (0-34); BUN/Creatinine Ratio 33 Ratio (12-20); Bilirubin,Total 0.3 mg/dL (0.3-1.2); Blood Urea Nitrogen 23 mg/dL (9-23); Calcium 9.8 mg/dL (8.3-10.6); Calcium (Corrected) 9.9 mg/dL (8.5-10.1); Carbon Dioxide 24.4 mMol/L (20.0-31.0); Chloride 97 mMol/L (98-107); Creatinine (Component) 0.7 mg/dL (0.6-1.3); Estimated Creatinine Clearance 51.7 mL/min (>60); Globulin 3.5 gm/dL (2.3-3.5); Glucose 109 mg/dL (74-106); Osmolality,Calculated 265 (275-295); Potassium 4.5 mMol/L (3.4-5.1); Sodium 130 mMol/L (136-145); Total Protein 7.4 gm/dL (5.7-8.2); eGFR > 60 See Note
--- NOTE | 2025-09-02 18:35 | XR_ITS ---
Examination: CT abdomen with intravenous contrast CT pelvis with intravenous contrast 2-D coronal reconstructions 2-D sagittal reconstructions Date and time of exam: September 02, 2025, 2020 hours comparison August 17, 2025 INDICATION: Generalized abdominal pain today CTDI: vol (mGy) 5.59 DLP: (mGycm) 299 Technique: Multiple axial sections of the abdomen and pelvis have been obtained. 64 slice high-resolution scanner used. 3 mm axial sections have been obtained, post intravenous injection 60 cc [id number] 2-D sagittal, coronal reconstructions obtained. Low dose protocols were performed. One or more of the following dose reduction techniques were used; automated exposure control, adjustment of the mA and/or KV according to patient size, use of iterative reconstruction technique. Findings: No focal liver or splenic lesions Absent gallbladder No common bile duct stones No pancreatic or adrenal mass No renal or ureteral calculi Left ileostomy No bowel obstruction Colonic diverticulosis No current abdominal or pelvic abscess Atrophic uterus Urinary bladder intact Moderate osteopenia IMPRESSION: Absent gallbladder No common bile duct stones No renal or ureteral calculi, no hydronephrosis No bowel obstruction Colonic diverticulosis No current abdominal or pelvic abscess, mild free fluid in the abdomen
[2025-09-02] MEDS: RINGERS LACTATED 1000 ML 1,000 ML 125 ML IV (23:33)
--- NOTE | 2025-09-02 23:47 | EDNOTE_ITS ---
Emergency Room Addendum Addendum Narrative: 23:00 - Care assumed from Flex Akers NP (emergency mid-level provider). Past medical, surgical, social and family history reviewed. Vitals and home medications reviewed. Results and treatment plan discussed. I will assume the care of the patient at this time and will follow the patient, pending consult with psychologist social in the morning. The following addendum documentation note is intended to reflect any pending information, findings, or radiology results not included in the patient?s initial chart by the previous shift scribe. 06:00 - Care assumed by Dr. Gan (emergency physician). Past medical, surgical, social and family history reviewed. Vitals and home medications reviewed. Results and treatment plan discussed. They will assume the care of the patient at this time and will follow the patient, pending consult with psychologist social.
[2025-09-03] VITALS (8 sets, daily range): BP systolic 89–109; BP diastolic 53–67; PULSE 67–78; RESP 14–19; TEMP 36.4–36.9; O2SAT 97–100
[2025-09-03 05:49] LABS: Collection Type, Urine Clean Catch
[2025-09-03 06:13] LABS: Bacteria,Urine 3+; Bilirubin,Urine Negative (Negative); Blood,Urine Negative (Negative); Clarity,Urine Clear (Clear/Hazy); Color,Urine Lt-Yellow (Lt Yel-Yel); Glucose, Urine Negative (Negative); Ketones,Urine Negative (Negative); Leukocyte Esterase,Urine Positive (Negative); Nitrite,Urine Negative (Negative); PH,Urine 6.5 (5.0-7.0); Protein,Urine Negative (Neg - Trace); RBC,Urine 2 /hpf (0-3); Specific Gravity,Urine 1.026 (1.001-1.035); Squamous Epithelial Cell,Urine < 1 /hpf (0-5); Urobilinogen,Urine Negative mg/dL (0.0-1.0); WBC,Urine 8 /hpf (0-5)
[2025-09-03 07:02] LABS: Culture Indicated,Urine Yes
--- NOTE | 2025-09-03 08:09 | PC.NURSE ---
As per Testing Engineer, patient has been accepted to [facility] and transportation has been arranged, no ETA provided at this time. Patient has been informed of SNF referral acceptance and agrees with POC.
--- NOTE | 2025-09-03 08:10 | PC.SS ---
Addendum entered by Jenny Gerardo 09/03/25 11:02: SS follow up note; SS set up transportation with [facility] for 12PM. SS will update patients nurse, Patient and Sera from [facility]. Addendum entered by Jenny Gerardo 09/03/25 08:48: SS follow up note; SS set up transportation for patient through [employer] [facility], Reference # [id number]. Original Note: Patient's nurse informed SS that patient will need SNF. SS met with patient to discuss SNF choice. Patient informed SS she lives in [place] and would like to discharge to [facility]. SS sent out SNF referral through [employer]. SS contacted Luz Maria from [facility] and she informed SS they are able to accept patient. SS will set up transportation for patient through [employer] [facility].
--- NOTE | 2025-09-03 09:05 | EDNOTE_ITS ---
Emergency Room Addendum Addendum Narrative: Patient was signed out to me by Dr. Jose pending placement. Patient has a history of colon cancer post exploratory laparoscopy with complications of multiple small bowel lacerations abdominal abscesses pelvic abscess post IR drainage at the end of July. Also with wound dehiscence and an ileostomy. Coming in as she was unable to manage at home and family requesting [place] [facility] placement. Social work was able to get patient placed at [facility]. Tr [facility] this morning. Patient is stable for transport at this time. Dx: abdominal pain, colon CA, h/o pelvic and abdominal abscesses post IR drainage, h/o abdominal wound dehiscence Dispo: DC to SNF
== END 2025-09-03 12:00 | disposition skilled nursing facility (03) ==
PROVIDERS: Nurse Practitioner Family; Emergency Provider Family Medicine; PCP Nurse Practitioner Primary Care
DX: C18.9 Malignant neoplasm of colon, unspecified (principal)
CPT/HCPCS: 36415; 71045; 74177; 80053; 81001; 85025; 85730; 87077; 87086; 87186; 93005; 96361; 96374; 96375; 99284; A4649; J2270; J2405; J7120; Q9967

== ENCOUNTER 2025-09-04 04:21 | Inpatient (IN) | payer MEDICARE, MEDICAID, SELFPAY ==
[2025-09-04] VITALS (7 sets, daily range): BP systolic 95–113; BP diastolic 55–70; PULSE 65–79; RESP 17–19; TEMP 36.1–37.1; O2SAT 95–98; BMI 21.8
--- NOTE | 2025-09-04 05:54 | PC.NURSE ---
re home meds lists complited. IV amino acids does not specify dose in home med lists copy.
--- NOTE | 2025-09-04 07:52 | PC.NURSE ---
Called team C for orders for pt, pt complaining of pain. MD jain (Stef)
--- NOTE | 2025-09-04 08:02 | PD.RESPRO ---
Documentation for date of: 09/04/25 Exam Vital Signs Temp Pulse Resp BP Pulse Ox O2 Del Method 97.5 F 79 17 104/62 95 Room Air 09/04/25 05:17 09/04/25 05:17 09/04/25 05:17 09/04/25 05:17 09/04/25 05:17 09/04/25 05:17 Assessment & Plan Assessment Current Active Medications: Generic Name Dose Route Start Last Admin Trade Name Freq PRN Reason Stop Dose Admin Acetaminophen 650 mg 09/04/25 09:00 Acetaminophen 325 Mg Tablet PO 10/04/25 08:59 Q6HR SHAWNA Hydromorphone HCl 2 mg 09/04/25 08:00 Hydromorphone Hcl 2 Mg Tablet PO 09/09/25 07:59 Q4HR SHAWAN Protocol
[2025-09-04] MEDS: HYDROMORPHONE HCL 2 MG TABLET PO ×4 (08:17→21:57)
[2025-09-04 09:03] LABS: Basophils # (Auto) 0.1 Thou/mm3 (0.0-0.2); Basophils % (Auto) 1 % (0-2.5); Eosinophils # (Auto) 0.4 Thou/mm3 (0.0-0.5); Eosinophils % (Auto) 6 % (0-10); Hematocrit 33.5 % (36.0-46.0); Hemoglobin 11.1 g/dL (12.0-16.0); Immature Granulocytes Auto 0.04 Thou/mm3 (0.00-0.00); Lymphocytes # (Auto) 1.7 Thou/mm3 (1.0-4.8); Lymphocytes % (Auto) 25 % (10-50); Mean Corpuscular HGB Conc 33.1 g/dl (31.0-37.0); Mean Corpuscular Hemoglobin 29.1 pg (25.0-35.0); Mean Corpuscular Volume 88 fL (80-100); Monocytes # (Auto) 0.7 Thou/mm3 (0.0-0.8); Monocytes % (Auto) 10 % (0-12); Neutrophils # (Auto) 4.0 Thou/mm3 (1.8-7.7); Neutrophils % (Auto) 58 % (37-80); Nucleated Red Blood Cell # 0.00 Thou/mm3 (0.00-0.00); Nucleated Red Blood Cell % 0 /100 WBC (0); Platelet Count 249 Thou/mm3 (140-440); RDW Standard Deviation 48.7 fL (36.4-46.3); Red Blood Count 3.81 Miln/mm3 (4.00-5.20); White Blood Count 6.9 Thou/mm3 (3.6-11.0)
[2025-09-04 09:18] LABS: Alanine Aminotransferase 20 U/L (10-49); Albumin, Serum 3.6 gm/dL (3.4-4.8); Albumin/Globulin Ratio 1.1 (1.2-2.2); Alkaline Phosphatase 219 U/L (46-116); Anion Gap 11 (7-16); Aspartate Amino Transferase 41 U/L (0-34); BUN/Creatinine Ratio 16 Ratio (12-20); Bilirubin,Total 0.4 mg/dL (0.3-1.2); Blood Urea Nitrogen 11 mg/dL (9-23); Calcium 9.3 mg/dL (8.3-10.6); Calcium (Corrected) 9.6 mg/dL (8.5-10.1); Carbon Dioxide 23.9 mMol/L (20.0-31.0); Chloride 102 mMol/L (98-107); Creatinine (Component) 0.7 mg/dL (0.6-1.3); Globulin 3.4 gm/dL (2.3-3.5); Glucose 98 mg/dL (74-106); Magnesium 1.8 mg/dL (1.6-2.6); Osmolality,Calculated 273 (275-295); Phosphorous 5.2 mg/dL (2.4-5.1); Potassium 3.6 mMol/L (3.4-5.1); Sodium 137 mMol/L (136-145); Total Protein 7.0 gm/dL (5.7-8.2); eGFR > 60 See Note
--- NOTE | 2025-09-04 09:27 | PC.SS ---
SS was informed by Team C that pt was supposed to DC today from ED. SS reached out to Luz Maria [phone] at , no answer, SS spoke to Admin,Marilyn [phone] who stated pt was sent to yesterday, but pt was sent back due to colostomy not properly working, not adhering and leaking. Marilyn also stated that their [employer] also stated pt was supposed to need a wound vac in which they were not aware of. SS attempted to get in touch with Dr. Ritchie and Team C, to get clarification pending a call back.
--- NOTE | 2025-09-04 10:03 | ESHP_ITS ---
<Statement entered by Yunier Nichols MD - 09/14/25 08:32> I reviewed above note and agree with findings and plans. I have also personally examined the patient with medicine team and went over assessment and plan with medical team including qa intern and resident physician. <Statement entered by Heidi Finch MD - 09/04/25 17:03> Ms. Washington is a 65 year old woman with history of invasive adenocarcinoma of the ascending colon s/p ex lap right hemicolectomy and ileotransverse anastomosis on 07/21 and an ex lap on 08/11 with resection of small bowel 2/2 multiple perforation and takedown of anastomosis with diverting ileostomy. Pt's previous hospitalization was complicated by intra-abdominal abscess which required drainage and eventual a wound VAC. Due to bowel rest and unable to meet nutritional requirement patient was started on TPN and was discharged from [facility] on 08/23 to [facility] and [place] with wound vac and Picc line for continued TPN. At the [facility] patient underwent extensive physical therapy, wound VAC was removed and patient was tolerating oral diet therefore TPN was discontinued, and was discharge from [facility]. Patient then went to [facility] due to untolerable pain and was discharge from ED to follow up with surgeon who performed the surgery. Pt presented to [facility] ED and was discharged to [facility] however patient was sent back to the ED from SNF with concerns of intra- abdominal abscess and ileostomy leak. Per surgery, minimal ileostomy leak will be noticed while the healing process continues, there are no intra-abdominal abscesses noticed on imaging other than small free fluid. No signs of new infections are noted, there is some erythema noted from irritation around the wound. Surgery advised to continue wound care and no need to repeat surgery. Patient is advised to continue PT, wound care and increase oral diet with high- protein. Patient was seen and examined by me personally. I have directly supervised and reviewed documentation by the team resident and agree with its findings. ------- Plan of care was discussed with the attending, Dr. Simone Finch, PGY-2 Documentation for date of: 09/04/25 HPI History of Present Illness Chief complaint: ileostomy leakage History of present illness: Ms Felix Aguirre is a 65 year old woman with history of invasive adenocarcinoma of the ascending colon s/p ex lap right hemicolectomy and ileotransverse anastomosis on 07/21 and an ex lap on 08/11 with resection of small bowel 2/2 multiple lacerations and takedown of anastomosis with diverting ileostomy. who was recently discharged from [facility] on 08/23 to [facility] with wound vac and Picc line for continued tpn. At that time her pain was managed with po meds dilaudid and apap. Per pt family, she was able to wean of the TPN and tolerate oral diet. Her Right sided abdominal wound that had wound vac had healed, and no longer requires wound vac. The ile[facility] was being managed [facility] but once the patient met discharge criteria for the [facility], she was discharged to home. The patient and family felt grossly incapable of managing the leaking ostomy and so they presented to the ED [facility], who were possibly concerned about a small intrabdominal collection of fluid on ctap. [facility] and represented to the [facility]. per ed notes, patient was accepted at [facility], but there is concern for whether they will be able to provide the level of care that the patient needs to adequately manage the leaky ostomy Past Surgical: multiple ex laps, R hemicolectomy, small bowel resection 2/2 adhesions and diverting illeostomy, cholecystectomy ,and appendectomy, c section ED course VSS Labs grossly unremarkable, wbc wnl, hgb stable 11, elevated phos 5.2 , elevated alk phos (chronic) CTAP with no signs of intrabdominal abscess Surgery Consulted, Dr Suggs Patient admitted for placement and wound care for leaking ileostomy Exam Vital Signs Temp Pulse Resp BP Pulse Ox O2 Del Method 97.0 F 65 17 95/55 L 97 Room Air 09/04/25 08:00 09/04/25 08:00 09/04/25 08:00 09/04/25 08:00 09/04/25 08:00 09/04/25 08:00 Narrative Exam General: No acute distress, Eye: PERRL, EOMI, normal conjunctiva, no scleral icterus HENT: Normocephalic, atraumatic, normal hearing, dry oral mucosa Neck: Supple, non-tender, no JVD, no lymphadenopathy Lungs: Clear to auscultation bilaterally, non-labored respirations, symmetric chest rise, no use of accessory muscles Heart: Normal S1 and S2, no S3 or S4 appreciated. Normal rate and regular rhythm, no murmurs, rubs gallops, or edema. Peripheral pulses intact bilaterally, capillary refill brisk distally Abdomen: transverse surgical scar which is completely closed with some surrounding errythema but no puralent drainage, no dehissience. , ileostomy bag in place draining brown liquid leaking some liquid small bowel contents Musculoskeletal: Normal range of motion and strength, no tenderness or swelling Skin: Skin is warm, dry, no rashes or lesions. Neurologic: Alert, awake and oriented x3. CN II-XII grossly intact. No focal neuro deficits. No signs of meningeal irritation noted. Psychiatric: Cooperative, appropriate mood and affect Results: Labs 09/04/25 08:15 09/04/25 08:15 Labs: Short CBC 09/04/25 Range/Units 08:15 WBC 6.9 (3.6-11.0) Thou/mm3 Hgb 11.1 L (12.0-16.0) g/dL Hct 33.5 L (36.0-46.0) % Plt Count 249 (140-440) Thou/mm3 BMP 09/04/25 08:15 Sodium 137 Potassium 3.6 D Chloride 102 Carbon Dioxide 23.9 BUN 11 Creatinine 0.7 Glucose 98 Calcium 9.3 Liver Function 09/04/25 Range/Units 08:15 Total Bilirubin 0.4 (0.3-1.2) mg/dL AST 41 H (0-34) U/L ALT 20 (10-49) U/L Alkaline Phosphatase 219 H D (46-116) U/L Albumin 3.6 (3.4-4.8) gm/dL Quality Measures Quality Measures VTE prophylaxis Advance care planning discussed with:: patient Medications Home Medications and Allergies Home Medications ?Medication ?Instructions ?Recorded ?Confirmed ?Type acetaminophen 325 mg capsule 650 mg PO Q6H PRN pain(sc madelin 1-6) 08/09/25 09/04/25 History amino acids 5% with 20% Dextrose IV 09/04/25 History cholecalciferol (vitamin D3) 25 25 mcg PO QDAY 5 09/04/25 History mcg (1,000 unit) tablet cyanocobalamin (vitamin B-12) 250 250 mcg PO QDAY 08/1509/04/25 History mcg tablet (Vitamin B-12) fat emulsion 20 % intravenous 250 ml IV QDAY 09/04/25 09/04/25 History (Intralipid) folic acid 1 mg tablet 1 mg PO QDAY 09/04/25 History hydromorphone 2 mg tablet 4 mg PO Q4H PRN pain 5 09/04/25 History (Dilaudid) sennosides 8.6 mg tablet (senna) 8.6 mg PO QDAY 09/04/25 History sodium chloride 1 gram tablet 1,000 mg PO BID 09/04/25 09/04/25 History thiamine HCl (vitamin B1) 100 mg 100 mg PO QDAY 09/04/25 History tablet zinc sulfate 220 mg capsule 220 mg PO DAILY 09/04/25 1 11/04/24 History Allergies Allergy/AdvReac Type Severity Reaction Status Date / Time No Known Allergies Allergy Verified 09/04/25 05:20 Visit Medications Acetaminophen (Acetaminophen 325 Mg Tablet) 650 mg PO Q6HR SHAWNA Stop: 10/04/25 08:59 Hydromorphone HCl (Hydromorphone Hcl 2 Mg Tablet) 2 mg PO Q4HR SHAWNA; Protocol Stop: 09/09/25 07:59 Last Admin: 09/04/25 08:17 Dose: 2 mg Assessment & Plan Plan Ms. Washington is a 65-year-old woman past medical history of invasive adenocarcinoma of the ascending colon s/p ex lap right hemicolectomy and ileotransverse anastomosis on 07/21 and an ex lap on 08/11 with resection of small bowel 2/2 multiple perforations and takedown of anastomosis and severe adhesions to the abdominal wall with diverting ileostomy. s/p TPN weaning at [facility] facility and resolution of L abdomen wound, previously with wound vac, pending placement with adequate ostomy wound care capabilities. pending wound care recs. #Subacute illiostomy leak #Multiple small bowel lacerations s/p ex lap and resection of small bowl and takedown of anastomosis and diverting ileostomy 08/11 #Abdominal abscess s/p IR drainage 08/10 #Pelvic abscess s/p IR drainage 08/09 #Invasive adenocarcinoma of ascending colon s/p ex lap R hemicolectomy and ilio transverse anastomosis 07/21 patient was discharged for [facility] after abdominal wound was much improved, no longer requiring wound vac, and weaned off of TPN and tolerating diet Dx - CTAP with No current abdominal or pelvic abscess, mild free fluid in the abdomen - CBC with nl wbc, no c/f active infection Plan - Surgery Consulted, appreciate recs: per Dr. Suggs, there is no indication for surgical intervention at this time - wound care consulted, appreciate recs for outpatient management of leakage - Ysabel, wound care nurse, will evaluate patient on Saturday and provide recommendations. - plan to discharge to snf or other facility that can provide adequate ostomy wound care Pain - Dilaudid 1mg PO q4hr scheduled - APAP 650 po q6hr scheduled #Normocytic anemia - stable Likely 2/2 chronic disease of adenocarcinoma. Denies melena, hematochezia or hematemasis. s/p 2 pRBC during surgery Hgb stable Plan: - CTM with daily CBC #Hypotension Plan Midodrine 10 mg TID Electrolyte abnormalities - replete as indicated Chronic elevated Alk phos CTM Calorie protein Malnutrition Low BMI Plan Dietitian consulted, appreciate recs Ensure with meals Dispo: med surg, pending wound care recs for ostomy care in setting of known recurrent mackenzie. and plan for d/c to snf. Diet: mech 2 dysphagia, and ensures Bowel Reg: not inidicated, has ostomy VTE ppx: scd GI ppx: protonix 40 qd Code status: FULL Plan discussed with my attending Dr. Nichols and my senior Dr. Stef Bond MD PGY1
--- NOTE | 2025-09-04 10:35 | PD.SURCONS ---
HPI Consult details Consult date: 09/04/25 Reason for consultation narrative: The patient was seen today for a follow-up consultation. Patient was transferred to [place] where she was receiving total parenteral nutrition and the institution transferred her back to [facility]. Apparently [facility] nurses could not take care of her because of the leaking of the ileostomy and she was taken to the [facility] emergency room physician called me around 1:30 AM today explaining that she needed to come to report to rule out because [facility] will not be able to take care of her. They performed a CT scan and showed some fluid collection in the right lower quadrant which is about 5 cm in diameter. I wanted to rule out abscess. Patient has been having no pain or vomiting or fever or chills. All the laboratory workup is normal in the emergency room. Patient was therefore transferred for further placement and care of the wound Meds Home Medications and Allergies Home Medications ?Medication ?Instructions ?Recorded ?Confirmed ?Type acetaminophen 325 mg capsule 650 mg PO Q6H PRN pain(scale 1-6) 08/09/25 09/04/25 History amino acids 5% with 20% Dextrose IV 09/04/25 History cholecalciferol (vitamin D3) 25 25 mcg PO QDAY 09/04/25 09/04/25 History mcg (1,000 unit) tablet cyanocobalamin (vitamin B-12) 250 250 mcg PO QDAY 09/04/25 09/04/25 History mcg tablet (Vitamin B-12) fat emulsion 20 % intravenous 250 ml IV QDAY 09/04/25 09/04/25 History (Intralipid) folic acid 1 mg tablet 1 mg PO QDAY 09/04/25 09/04/25 History hydromorphone 2 mg tablet 4 mg PO Q4H PRN pain 09/04/25 09/04/25 History (Dilaudid) sennosides 8.6 mg tablet (senna) 8.6 mg PO QDAY 09/04/25 09/04/25 History sodium chloride 1 gram tablet 1,000 mg PO BID 09/04/25 09/04/25 History thiamine HCl (vitamin B1) 100 mg 100 mg PO QDAY 09/04/25 09/04/25 History tablet zinc sulfate 220 mg capsule 220 mg PO DAILY 09/04/25 09/04/25 History Allergies Allergy/AdvReac Type Severity Reaction Status Date / Time No Known Allergies Allergy Verified 09/04/25 05:20 Exam Vital Signs Temp Pulse Resp BP Pulse Ox O2 Del Method 97.0 F 65 17 95/55 L 97 Room Air 09/04/25 08:00 09/04/25 08:00 09/04/25 08:00 09/04/25 08:00 09/04/25 08:00 09/04/25 08:00 Narrative Exam Examination revealed elderly female weighing 101 pounds. Her vital signs are normal Routine Abdominal Exam Comments: Examination of the abdomen showed transverse surgical scar which is completely closed. She was having wound VAC in this region but she no longer needs the wound VAC because incision has closed. Unfortunately the ileostomy is leaking some liquid small bowel contents and it is collecting in the groove where the transverse incision was placed about 2 laparotomies. Most of the ileum has been removed in this patient due to perforation and what is left is only jejunum. Assessment & Plan Additional Assessment Additional comments: Impression: Patient has difficulty ileostomy which is leaking and a good seal cannot be obtained. Plan Plan: Patient will require ostomy care and placement. I am not sure [facility] is planning to take care of her because they have a difficulty in managing this ileostomy leak. I do not know whether we require another institution or a long-term facility take care of her. Thank you very much
[2025-09-04] MEDS: ACETAMINOPHEN 325 MG TABLET 650 MG PO ×2 (11:20→17:50)
[2025-09-04] MEDS: MIDODRINE 5 MG TABLET 10 MG PO ×2 (11:20→21:57)
--- NOTE | 2025-09-04 15:10 | PC.SS ---
Rounding: Plan for Wound RNYsabel to see pt Saturday. DC plan pending.
--- NOTE | 2025-09-04 15:25 | PC.SS ---
Carla Washington is a 65-year-old female admitted to [place] for Abscess. SS conducted over the phone contact with pt son and DM Dionisio Jimmie [phone]. Role and reason explained. Pt is currently requiring max assist, and family is unable to provide care pt requires. Per Dionisio pt was at [facility] for 2 weeks and transitioned to home with HH. Pt could not tolerate the pain at home and family could not provide pt the care she required which then came to ED and [facility] accepted pt from ED but sent pt right back due to colostomy not functioning properly. Per Dionisio they were unhappy with the way the pts wounds were taken care of therefore he does not wish to have pt return there. SS inquired if there are any other facilities they are interested in. Per Dionisio, they wish to wait for wound care nurse to see pt before they determine what the DC plan will be. SS will remain available for any additional needs or concerns. DM: Dionisio Ho DC plan: SNF
[2025-09-05] VITALS (9 sets, daily range): BP systolic 109–131; BP diastolic 69–78; PULSE 71–82; RESP 16–18; TEMP 36.2–36.9; O2SAT 94–98
[2025-09-05] MEDS: MIDODRINE 5 MG TABLET 10 MG PO ×3 (05:29→22:12)
[2025-09-05 05:51] LABS: Basophils # (Auto) 0.1 Thou/mm3 (0.0-0.2); Basophils % (Auto) 1 % (0-2.5); Eosinophils # (Auto) 0.7 Thou/mm3 (0.0-0.5); Eosinophils % (Auto) 8 % (0-10); Hematocrit 36.4 % (36.0-46.0); Hemoglobin 12.2 g/dL (12.0-16.0); Immature Granulocytes Auto 0.03 Thou/mm3 (0.00-0.00); Lymphocytes # (Auto) 2.1 Thou/mm3 (1.0-4.8); Lymphocytes % (Auto) 27 % (10-50); Mean Corpuscular HGB Conc 33.5 g/dl (31.0-37.0); Mean Corpuscular Hemoglobin 29.5 pg (25.0-35.0); Mean Corpuscular Volume 88 fL (80-100); Monocytes # (Auto) 0.8 Thou/mm3 (0.0-0.8); Monocytes % (Auto) 10 % (0-12); Neutrophils # (Auto) 4.2 Thou/mm3 (1.8-7.7); Neutrophils % (Auto) 53 % (37-80); Nucleated Red Blood Cell # 0.00 Thou/mm3 (0.00-0.00); Nucleated Red Blood Cell % 0 /100 WBC (0); Platelet Count 279 Thou/mm3 (140-440); RDW Standard Deviation 48.6 fL (36.4-46.3); Red Blood Count 4.13 Miln/mm3 (4.00-5.20); White Blood Count 8.0 Thou/mm3 (3.6-11.0)
[2025-09-05 06:19] LABS: Alanine Aminotransferase 19 U/L (10-49); Albumin, Serum 4.0 gm/dL (3.4-4.8); Albumin/Globulin Ratio 1.1 (1.2-2.2); Alkaline Phosphatase 242 U/L (46-116); Anion Gap 11 (7-16); Aspartate Amino Transferase 39 U/L (0-34); BUN/Creatinine Ratio 19 Ratio (12-20); Bilirubin,Total 0.4 mg/dL (0.3-1.2); Blood Urea Nitrogen 17 mg/dL (9-23); Calcium 9.8 mg/dL (8.3-10.6); Calcium (Corrected) 9.8 mg/dL (8.5-10.1); Carbon Dioxide 24.9 mMol/L (20.0-31.0); Chloride 98 mMol/L (98-107); Creatinine (Component) 0.9 mg/dL (0.6-1.3); Estimated Creatinine Clearance 38.0 mL/min (>60); Globulin 3.6 gm/dL (2.3-3.5); Glucose 111 mg/dL (74-106); Magnesium 1.8 mg/dL (1.6-2.6); Osmolality,Calculated 270 (275-295); Phosphorous 5.3 mg/dL (2.4-5.1); Potassium 3.7 mMol/L (3.4-5.1); Sodium 134 mMol/L (136-145); Total Protein 7.6 gm/dL (5.7-8.2); eGFR > 60 See Note
--- NOTE | 2025-09-05 07:56 | ESPR_ITS ---
<Statement entered by Yunier Nichols MD - 09/14/25 08:33> I reviewed above note and agree with findings and plans. I have also personally examined the patient with medicine team and went over assessment and plan with medical team including programming intern and resident physician. <Statement entered by Heidi Finch MD - 09/05/25 16:13> pt is seen at bedside, labs are stable, no leukocyte count, pt has remained afebrile. tolerating oral diet, encouraged to increase protein intake. Pt will have wound care tomorrow, no need for wound vac, pt and family is reassured the healing process will continue for sometime. Pt is stable to be discharge to SNF tomorrow where she will continue PT and woundcare. Patient was seen and examined by me personally. I have directly supervised and reviewed documentation by the team resident and agree with its findings. ------- Plan of care was discussed with the attending, Dr. Simone Finch, PGY-2 Documentation for date of: 09/05/25 Subjective Subjective Interval history: NAEO. VSS. Reports continued abdominal pain but no N/V. Exam Vital Signs Temp Pulse Resp BP Pulse Ox O2 Del Method 97.6 F 72 18 112/78 96 Room Air 09/05/25 04:00 09/05/25 05:29 09/05/25 04:00 09/05/25 05:29 09/05/25 04:00 09/05/25 04:00 Narrative Exam General: No acute distress, Eye: PERRL, EOMI, normal conjunctiva, no scleral icterus HENT: Normocephalic, atraumatic, normal hearing, dry oral mucosa Neck: Supple, non-tender, no JVD, no lymphadenopathy Lungs: Clear to auscultation bilaterally, non-labored respirations, symmetric chest rise, no use of accessory muscles Heart: Normal S1 and S2, no S3 or S4 appreciated. Normal rate and regular rhythm, no murmurs, rubs gallops, or edema. Peripheral pulses intact bilaterally, capillary refill brisk distally Abdomen: transverse surgical scar which is completely closed with some surrounding errythema but no puralent drainage, no dehissience. ileostomy bag in place draining brown liquid leaking some liquid small bowel contents Musculoskeletal: Normal range of motion and strength, no tenderness or swelling Skin: Skin is warm, dry, no rashes or lesions. Neurologic: Alert, awake and oriented x3. CN II-XII grossly intact. No focal neuro deficits. No signs of meningeal irritation noted. Psychiatric: Cooperative, appropriate mood and affect Objective Labs 09/05/25 04:10 09/05/25 04:10 Labs: Laboratory Results - last 24 hr 09/04/25 09/05/25 08:15 04:10 WBC 6.9 8.0 RBC 3.81 L 4.13 Hgb 11.1 L 12.2 Hct 33.5 L 36.4 MCV 88 88 MCH 29.1 29.5 MCHC 33.1 33.5 RDW Std Deviation 48.7 H 48.6 H Plt Count 249 279 D Neut % (Auto) 58 53 Lymph % (Auto) 25 27 Fountain % (Auto) 10 10 Eos % (Auto) 6 8 Baso % (Auto) 1 1 Neut # (Auto) 4.0 4.2 Lymph # (Auto) 1.7 2.1 Fountain # (Auto) 0.7 0.8 Eos # (Auto) 0.4 0.7 H Baso # (Auto) 0.1 0.1 Immature Gran # (Auto) 0.04 H 0.03 H Absolute Nucleated RBC 0.00 0.00 Immature Gran % 1 H 0 Nucleated RBC % 0 0 Sodium 137 134 L Potassium 3.6 D 3.7 Chloride 102 98 Carbon Dioxide 23.9 24.9 Anion Gap 11 11 BUN 11 17 Creatinine 0.7 0.9 Estim Creat Clear Calc Not Performed. 38.0 L eGFR > 60 > 60 BUN/Creatinine Ratio 16 19 Glucose 98 111 H Calculated Osmolality 273 L 270 L Calcium 9.3 9.8 Corrected Calcium 9.6 9.8 Phosphorus 5.2 H 5.3 H Magnesium 1.8 1.8 Total Bilirubin 0.4 0.4 AST 41 H 39 H ALT 20 19 Alkaline Phosphatase 219 H D 242 H D Total Protein 7.0 7.6 Albumin 3.6 4.0 Globulin 3.4 3.6 H Albumin/Globulin Ratio 1.1 L 1.1 L Quality Measures Quality Measures VTE prophylaxis Advance care planning discussed with:: patient Assessment & Plan Assessment Current Active Medications: Generic Name Dose Route Start Last Admin Trade Name Freq PRN Reason Stop Dose Admin Acetaminophen 650 mg 09/04/25 09:00 09/05/25 05:30 Acetaminophen 325 Mg Tablet PO 10/04/25 08:59 Not Given Q6HR SHAWNA Hydromorphone HCl 2 mg 09/04/25 08:00 09/05/25 05:30 Hydromorphone Hcl 2 Mg Tablet PO 09/09/25 07:59 Not Given Q4HR [facility] Protocol Midodrine 10 mg 09/04/25 11:00 09/05/25 05:29 Midodrine 5 Mg Tablet PO 10/04/25 10:59 10 mg TID SHAWNA Administration Plan Ms. Washington is a 65-year-old woman past medical history of invasive adenocarcinoma of the ascending colon s/p ex lap right hemicolectomy and ileotransverse anastomosis on 07/21 and an ex lap on 08/11 with resection of small bowel 2/2 multiple perforations and takedown of anastomosis and severe adhesions to the abdominal wall with diverting ileostomy. s/p TPN weaning at [facility] facility and resolution of L abdomen wound, previously with wound vac, pending placement with adequate ostomy wound care capabilities. pending wound care recs. #Subacute illiostomy leak #Multiple small bowel lacerations s/p ex lap and resection of small bowl and takedown of anastomosis and diverting ileostomy 08/11 #Abdominal abscess s/p IR drainage 08/10 #Pelvic abscess s/p IR drainage 08/09 #Invasive adenocarcinoma of ascending colon s/p ex lap R hemicolectomy and ilio transverse anastomosis 07/21 patient was discharged for [facility] facility after abdominal wound was much improved, no longer requiring wound vac, and weaned off of TPN and tolerating diet Dx - CTAP with No current abdominal or pelvic abscess, mild free fluid in the abdomen - CBC with nl wbc, no c/f active infection Plan - Surgery Consulted, appreciate recs: per Dr. Suggs, there is no indication for surgical intervention at this time - wound care consulted, appreciate recs for outpatient management of leakage - Ysabel, wound care nurse, will evaluate patient on Saturday and provide recommendations. - plan to discharge to snf or other facility that can provide adequate ostomy wound care Pain - Dilaudid 2mg PO q4hr scheduled - APAP 650 po q6hr scheduled #UTI, Enterobacter aerogenes Plan: - Cefepime 1 g BID IV (09/05-) #Normocytic anemia - stable Likely 2/2 chronic disease of adenocarcinoma. Denies melena, hematochezia or hematemasis. s/p 2 pRBC during surgery Hgb stable Plan: - CTM with daily CBC #Hypotension Plan - Midodrine 10 mg TID #Electrolyte abnormalities #Hyponatremia #Hyperphosphatemia Plan: - replete as indicated - encourage PO intake #Chronic elevated Alk phos Plan: - CTM #Calorie protein Malnutrition Low BMI Plan: - Dietitian consulted, appreciate recs - Ensure with meals Dispo: med surg, pending wound care recs for ostomy care in setting of known recurrent mackenzie. and plan for d/c to snf. Diet: mech 2 dysphagia, and ensures Bowel Reg: not inidicated, has ostomy VTE ppx: scd GI ppx: protonix 40 qd Code status: FULL Plan discussed with my attending Dr. Nichols and my senior Dr. Stef Short MD PGY1
--- NOTE | 2025-09-05 08:41 | ESPR_ITS ---
Documentation for date of: 09/05/25 Subjective Subjective Narrative: The patient's ileostomy has been dressed to prevent any leak. Exam Vital Signs Temp Pulse Resp BP Pulse Ox O2 Del Method 97.1 F 74 17 131/78 H 98 Room Air 09/05/25 08:00 09/05/25 08:00 09/05/25 08:00 09/05/25 08:00 09/05/25 08:00 09/05/25 08:00 Her vital signs are normal Assessment & Plan Assessment Additional comments: Impression: Leaking ileostomy Plan Plan: The patient could be discharged with proper ostomy care either to home or a penitentiary. No further treatment is required.
[2025-09-05] MEDS: HYDROMORPHONE HCL 2 MG TABLET PO ×3 (09:00→22:12)
[2025-09-05] MEDS: CEFEPIME INJ 1 GM in SODIUM CHLORIDE 0.9% (Popper) 50 ML IV ×2 (09:00→20:47)
[2025-09-05] MEDS: ACETAMINOPHEN 325 MG TABLET 650 MG PO (12:41)
--- NOTE | 2025-09-05 16:48 | PC.SS ---
Discharge round: Pending would care tomorrow, 09/06/25, then back to SNF. No wound vac needed.
[2025-09-06] VITALS (8 sets, daily range): BP systolic 98–123; BP diastolic 63–89; PULSE 53–95; RESP 14–20; TEMP 36.1–37.1; O2SAT 95–98
[2025-09-06 06:17] LABS: Basophils # (Auto) 0.1 Thou/mm3 (0.0-0.2); Basophils % (Auto) 1 % (0-2.5); Eosinophils # (Auto) 0.7 Thou/mm3 (0.0-0.5); Eosinophils % (Auto) 8 % (0-10); Hematocrit 36.7 % (36.0-46.0); Hemoglobin 12.7 g/dL (12.0-16.0); Immature Granulocytes Auto 0.04 Thou/mm3 (0.00-0.00); Lymphocytes # (Auto) 2.8 Thou/mm3 (1.0-4.8); Lymphocytes % (Auto) 31 % (10-50); Mean Corpuscular HGB Conc 34.6 g/dl (31.0-37.0); Mean Corpuscular Hemoglobin 29.7 pg (25.0-35.0); Mean Corpuscular Volume 86 fL (80-100); Monocytes # (Auto) 0.8 Thou/mm3 (0.0-0.8); Monocytes % (Auto) 9 % (0-12); Neutrophils # (Auto) 4.6 Thou/mm3 (1.8-7.7); Neutrophils % (Auto) 51 % (37-80); Nucleated Red Blood Cell # 0.00 Thou/mm3 (0.00-0.00); Nucleated Red Blood Cell % 0 /100 WBC (0); Platelet Count 282 Thou/mm3 (140-440); RDW Standard Deviation 46.3 fL (36.4-46.3); Red Blood Count 4.27 Miln/mm3 (4.00-5.20); White Blood Count 9.1 Thou/mm3 (3.6-11.0)
[2025-09-06 06:55] LABS: Alanine Aminotransferase 19 U/L (10-49); Albumin, Serum 4.2 gm/dL (3.4-4.8); Albumin/Globulin Ratio 1.1 (1.2-2.2); Alkaline Phosphatase 254 U/L (46-116); Anion Gap 14 (7-16); Aspartate Amino Transferase 42 U/L (0-34); BUN/Creatinine Ratio 16 Ratio (12-20); Bilirubin,Total 0.5 mg/dL (0.3-1.2); Blood Urea Nitrogen 22 mg/dL (9-23); Calcium 9.8 mg/dL (8.3-10.6); Calcium (Corrected) 9.8 mg/dL (8.5-10.1); Carbon Dioxide 21.7 mMol/L (20.0-31.0); Chloride 93 mMol/L (98-107); Creatinine (Component) 1.4 mg/dL (0.6-1.3); Estimated Creatinine Clearance 24.4 mL/min (>60); Globulin 3.9 gm/dL (2.3-3.5); Glucose 107 mg/dL (74-106); Magnesium 1.8 mg/dL (1.6-2.6); Osmolality,Calculated 262 (275-295); Phosphorous 5.3 mg/dL (2.4-5.1); Potassium 4.3 mMol/L (3.4-5.1); Sodium 129 mMol/L (136-145); Total Protein 8.1 gm/dL (5.7-8.2); eGFR 42 See Note
--- NOTE | 2025-09-06 08:15 | ESPR_ITS ---
<Statement entered by Yunier Nichols MD - 09/14/25 08:39> I reviewed above note and agree with findings and plans. I have also personally examined the patient with medicine team and went over assessment and plan with medical team including hospital intern and resident physician. <Statement entered by Heidi Finch MD - 09/06/25 12:38> Pt is seen at bedside, complains of abdominal pain. Pt also states she produced very little urine since yesterday. Todays labs show sodium 129 and have an STEPH with Cr 1.4. Will give pt IV fluid, repeat renal panel and do bladder scan Q4H to rule out urinary retension. Will monitor today and anticpate DC tomorrow. Patient was seen and examined by me personally. I have directly supervised and reviewed documentation by the team resident and agree with its findings. ------- Plan of care was discussed with the attending, Dr. Simone Finch, PGY-2 Documentation for date of: 09/06/25 Subjective Subjective Interval history: NAEO. VSS. Patient reporting LLQ abdominal pain this AM. Able to tolerate PO diet. Exam Vital Signs Temp Pulse Resp BP Pulse Ox O2 Del Method 98.1 F 85 18 123/85 H 98 Room Air 09/06/25 04:00 09/06/25 05:30 09/06/25 04:00 09/06/25 05:30 09/06/25 04:00 09/06/25 04:00 Narrative Exam General: No acute distress, Eye: PERRL, EOMI, normal conjunctiva, no scleral icterus HENT: Normocephalic, atraumatic, normal hearing, dry oral mucosa Neck: Supple, non-tender, no JVD, no lymphadenopathy Lungs: Clear to auscultation bilaterally, non-labored respirations, symmetric chest rise, no use of accessory muscles Heart: Normal S1 and S2, no S3 or S4 appreciated. Normal rate and regular rhythm, no murmurs, rubs gallops, or edema. Peripheral pulses intact bilaterally, capillary refill brisk distally Abdomen: transverse surgical scar which is completely closed with some surrounding errythema but no puralent drainage, no dehissience. ileostomy bag in place draining brown liquid leaking some liquid small bowel contents Musculoskeletal: Normal range of motion and strength, no tenderness or swelling Skin: Skin is warm, dry, no rashes or lesions. Neurologic: Alert, awake and oriented x3. CN II-XII grossly intact. No focal neuro deficits. No signs of meningeal irritation noted. Psychiatric: Cooperative, appropriate mood and affect Objective Labs 09/06/25 05:56 09/06/25 05:56 Labs: Laboratory Results - last 24 hr 09/06/25 05:56 WBC 9.1 RBC 4.27 Hgb 12.7 Hct 36.7 MCV 86 MCH 29.7 MCHC 34.6 RDW Std Deviation 46.3 Plt Count 282 Neut % (Auto) 51 Lymph % (Auto) 31 Sac % (Auto) 9 Eos % (Auto) 8 Baso % (Auto) 1 Neut # (Auto) 4.6 Lymph # (Auto) 2.8 Sac # (Auto) 0.8 Eos # (Auto) 0.7 H Baso # (Auto) 0.1 Immature Gran # (Auto) 0.04 H Absolute Nucleated RBC 0.00 Immature Gran % 0 Nucleated RBC % 0 Sodium 129 L Potassium 4.3 D Chloride 93 L Carbon Dioxide 21.7 Anion Gap 14 BUN 22 Creatinine 1.4 H D Estim Creat Clear Calc 24.4 L eGFR 42 L BUN/Creatinine Ratio 16 Glucose 107 H Calculated Osmolality 262 L Calcium 9.8 Corrected Calcium 9.8 Phosphorus 5.3 H Magnesium 1.8 Total Bilirubin 0.5 AST 42 H ALT 19 Alkaline Phosphatase 254 H Total Protein 8.1 Albumin 4.2 Globulin 3.9 H Albumin/Globulin Ratio 1.1 L Quality Measures Quality Measures VTE prophylaxis Advance care planning discussed with:: patient Assessment & Plan Assessment Current Active Medications: Generic Name Dose Route Start Last Admin Trade Name Brigitte PRN Reason Stop Dose Admin Acetaminophen 650 mg 09/04/25 09:00 09/06/25 06:00 Acetaminophen 325 Mg Tablet PO 10/04/25 08:59 Not Given Q6HR SHAWNA Hydromorphone HCl 2 mg 09/04/25 08:00 09/06/25 05:45 Hydromorphone Hcl 2 Mg Tablet PO 09/09/25 07:59 Not Given Q4HR [facility] Protocol Cefepime HCl 1 gm/ Sodium 50 mls @ 100 mls/hr 09/05/25 08:01 09/05/25 21:17 Chloride IV 09/12/25 08:00 Infused Q12HR SHAWNA Infusion Midodrine 10 mg 09/04/25 11:00 09/06/25 05:30 Midodrine 5 Mg Tablet PO 10/04/25 10:59 Not Given TID SHAWNA Plan Ms. Washington is a 65-year-old woman past medical history of invasive adenocarcinoma of the ascending colon s/p ex lap right hemicolectomy and ileotransverse anastomosis on 07/21 and an ex lap on 08/11 with resection of small bowel 2/2 multiple perforations and takedown of anastomosis and severe adhesions to the abdominal wall with diverting ileostomy. s/p TPN weaning at [facility] facility and resolution of L abdomen wound, previously with wound vac, pending placement with adequate ostomy wound care capabilities. pending wound care recs. #Subacute illiostomy leak #Multiple small bowel lacerations s/p ex lap and resection of small bowl and takedown of anastomosis and diverting ileostomy 08/11 #Abdominal abscess s/p IR drainage 08/10 #Pelvic abscess s/p IR drainage 08/09 #Invasive adenocarcinoma of ascending colon s/p ex lap R hemicolectomy and ilio transverse anastomosis 07/21 patient was discharged for [facility] after abdominal wound was much improved, no longer requiring wound vac, and weaned off of TPN and tolerating diet Dx - CTAP with No current abdominal or pelvic abscess, mild free fluid in the abdomen - CBC with nl wbc, no c/f active infection Plan: - Surgery Consulted, appreciate recs: per Dr. Suggs, there is no indication for surgical intervention at this time - wound care consulted, appreciate recs for outpatient management of leakage - Ysabel, wound care nurse, will evaluate patient on Saturday and provide recommendations. - plan to discharge to snf or other facility that can provide adequate ostomy wound care Pain mgmt: - Dilaudid 2mg PO q4hr PRN - APAP 650 po q6hr scheduled #UTI, Enterobacter aerogenes Has foul smelling urine, urinary frequency Plan: - Cefepime 1 g BID IV (09/05-) - Bladder scan q6h -- straight cath if >300 cc in bladder #Electrolyte abnormalities #Moderate Hypotonic hyponatremia #Hyperphosphatemia Na 129, serum osm 262 , eGFR 42-60, not on thiazides, no edema or ascites, asymptomatic Plan: - encourage PO intake - Pending urine electrolytes #STEPH Cr 1.4 on 09/06 Baseline Cr 0.9 Likely prerenal Plan: - Encourage PO intake #Normocytic anemia - stable Likely 2/2 chronic disease of adenocarcinoma. Denies melena, hematochezia or hematemasis. s/p 2 pRBC during surgery Hgb stable Plan: - CTM with daily CBC #Hypotension Plan - Midodrine 10 mg TID #Chronic elevated Alk phos Plan: - CTM #Calorie protein Malnutrition Low BMI Plan: - Dietitian consulted, appreciate recs - Ensure with meals Checklist Dispo: med surg, pending wound care recs for ostomy care in setting of known recurrent mackenzie. and plan for d/c to snf. Diet: mech 2 dysphagia, and ensures Bowel Reg: not inidicated, has ostomy VTE ppx: scd GI ppx: protonix 40 PO daily Code status: FULL Plan discussed with my attending Dr. Nichols and my senior Dr. Stef Short MD PGY1
[2025-09-06] MEDS: HYDROMORPHONE HCL 2 MG TABLET PO ×3 (08:43→23:59)
[2025-09-06] MEDS: CEFEPIME INJ 1 GM in SODIUM CHLORIDE 0.9% (Popper) 50 ML IV ×2 (08:43→20:15)
--- NOTE | 2025-09-06 09:03 | PC.SS ---
Addendum entered by Ivonne Fu 09/06/25 14:59: Follow up note: SS followed up with wound care nurse and she updated that family does not want patient to return to [facility]. SS met with patient's son, Dionisio, and remaining family members. They state they were unhappy with the care at facility. SS discussed alternate SNF options. Family chose [facility] first and if they do not accept then [facility]. SS will send inquiry. No wound vac. Wound care needed. Original Note: rounding note: Patient to return to [facility] today without a wound vac. Pending d/c orders.
--- NOTE | 2025-09-06 10:08 | PD.SURPROG ---
Documentation for date of: 09/06/25 Exam Vital Signs Temp Pulse Resp BP Pulse Ox O2 Del Method 97.1 F 79 18 118/82 97 Room Air 09/06/25 08:00 09/06/25 08:00 09/06/25 08:00 09/06/25 08:00 09/06/25 08:00 09/06/25 08:00 Assessment & Plan Assessment Additional comments: Impression: Difficult ileostomy for ostomy care Plan Plan: Patient could be discharged back to her home with home health if the ileostomy is healing is accompanied by the wound care nurse
--- NOTE | 2025-09-06 15:36 | PC.WOUND ---
Enrolled patient into [facility] Start to assit with outpatient supplies online. Contact number . Information given to Dionisio Samuel and discharge instructions updated.
[2025-09-06] MEDS: PHENAZOPYRIDINE HCL 100 MG TABLET 200 MG PO (17:12)
[2025-09-06 17:30] LABS: Albumin, Serum 4.7 gm/dL (3.4-4.8); Anion Gap 14 (7-16); BUN/Creatinine Ratio 19 Ratio (12-20); Blood Urea Nitrogen 29 mg/dL (9-23); Calcium 10.3 mg/dL (8.3-10.6); Calcium (Corrected) 10.3 mg/dL (8.5-10.1); Carbon Dioxide 24.2 mMol/L (20.0-31.0); Chloride 89 mMol/L (98-107); Creatinine (Component) 1.5 mg/dL (0.6-1.3); Estimated Creatinine Clearance 22.8 mL/min (>60); Glucose 157 mg/dL (74-106); Osmolality,Calculated 264 (275-295); Phosphorous 5.5 mg/dL (2.4-5.1); Potassium 4.3 mMol/L (3.4-5.1); Sodium 127 mMol/L (136-145); eGFR 38 See Note
[2025-09-06] MEDS: SODIUM CHLORIDE 3%(Hypertonic) 50 ML in PRE-MIXED 1 BAG IV (18:50)
[2025-09-06] MEDS: NYSTATIN PWD 15 GM BTL TOP (20:18)
[2025-09-06 21:28] LABS: Sodium 128 mMol/L (136-145)
[2025-09-06] MEDS: MIDODRINE 5 MG TABLET 10 MG PO (22:13)
--- NOTE | 2025-09-06 22:37 | EKG_ITS ---
[facility] Test Date: 2025-09-06 Pat Name: WILMAN ALCALA [facility] Gender[facility] Female Marketing Strategy Lead: KIMMIE : 1960 Requested By: Erica Claros Order Number: [id number] Reading MD: Erica Claros Measurements Intervals Prentice Rate: 77 P: 54 IA: 150 QRS: 68 QRSD: 85 T: 66 QT: 362 QTc: 410 Interpretive Statements SINUS RHYTHM Compared to ECG 09/02/2025 18:57:34 No significant changes /store/S0/[id number].pdf
--- NOTE | 2025-09-06 22:43 | PC.NURSE ---
Dr. Claros notified regarding recent sodium result.
[2025-09-07] VITALS (10 sets, daily range): BP systolic 108–122; BP diastolic 72–85; PULSE 47–112; RESP 15–20; TEMP 36–36.6; O2SAT 92–96
[2025-09-07 01:34] LABS: Troponin I < 0.020 ng/mL (0.0-0.045)
[2025-09-07] MEDS: ONDANSETRON INJ 2 MG/ML INJ 2 ML 4 MG IVP ×2 (05:26→13:03)
[2025-09-07] MEDS: MIDODRINE 5 MG TABLET 10 MG PO ×3 (05:26→21:44)
[2025-09-07 06:03] LABS: Basophils # (Auto) 0.1 Thou/mm3 (0.0-0.2); Basophils % (Auto) 1 % (0-2.5); Eosinophils # (Auto) 0.8 Thou/mm3 (0.0-0.5); Eosinophils % (Auto) 7 % (0-10); Hematocrit 41.5 % (36.0-46.0); Hemoglobin 14.1 g/dL (12.0-16.0); Immature Granulocytes Auto 0.06 Thou/mm3 (0.00-0.00); Lymphocytes # (Auto) 4.5 Thou/mm3 (1.0-4.8); Lymphocytes % (Auto) 39 % (10-50); Mean Corpuscular HGB Conc 34.0 g/dl (31.0-37.0); Mean Corpuscular Hemoglobin 29.4 pg (25.0-35.0); Mean Corpuscular Volume 87 fL (80-100); Monocytes # (Auto) 0.9 Thou/mm3 (0.0-0.8); Monocytes % (Auto) 8 % (0-12); Neutrophils # (Auto) 5.2 Thou/mm3 (1.8-7.7); Neutrophils % (Auto) 45 % (37-80); Nucleated Red Blood Cell # 0.00 Thou/mm3 (0.00-0.00); Nucleated Red Blood Cell % 0 /100 WBC (0); Platelet Count 387 Thou/mm3 (140-440); RDW Standard Deviation 46.8 fL (36.4-46.3); Red Blood Count 4.79 Miln/mm3 (4.00-5.20); White Blood Count 11.6 Thou/mm3 (3.6-11.0)
[2025-09-07 06:24] LABS: Alanine Aminotransferase 24 U/L (10-49); Albumin, Serum 4.7 gm/dL (3.4-4.8); Albumin/Globulin Ratio 1.1 (1.2-2.2); Anion Gap 14 (7-16); Aspartate Amino Transferase 38 U/L (0-34); BUN/Creatinine Ratio 23 Ratio (12-20); Bilirubin,Total 0.6 mg/dL (0.3-1.2); Blood Urea Nitrogen 36 mg/dL (9-23); Calcium 10.7 mg/dL (8.3-10.6); Calcium (Corrected) 10.7 mg/dL (8.5-10.1); Carbon Dioxide 24.6 mMol/L (20.0-31.0); Chloride 89 mMol/L (98-107); Creatinine (Component) 1.6 mg/dL (0.6-1.3); Estimated Creatinine Clearance 21.4 mL/min (>60); Globulin 4.2 gm/dL (2.3-3.5); Glucose 118 mg/dL (74-106); Magnesium 1.8 mg/dL (1.6-2.6); Osmolality,Calculated 266 (275-295); Phosphorous 5.5 mg/dL (2.4-5.1); Potassium 4.0 mMol/L (3.4-5.1); Sodium 128 mMol/L (136-145); Total Protein 8.9 gm/dL (5.7-8.2); eGFR 36 See Note
[2025-09-07 06:54] LABS: Alkaline Phosphatase 286 U/L (46-116)
--- NOTE | 2025-09-07 08:14 | ESPR_ITS ---
<Statement entered by Heidi Finch MD - 09/07/25 16:20> Pt is seen at bedside, complains of abdominal pain. Pt's Na is 128 despite 50ml 3%saline bolus. Will order 1L NS and repeat renal panel and consult nephrology. Although pt is eating 25% of meals however taking all her ensures with meals and pt's family is bringing food from outside. Will continue to monitor meal consumption and determine if pt will need TPN or not. Patient was seen and examined by me personally. I have directly supervised and reviewed documentation by the team resident and agree with its findings. ------- Plan of care was discussed with the attending, Dr. Maury Finch, PGY-2 Documentation for date of: 09/07/25 Subjective Subjective Interval history: NAEO. VSS. Patient reports continued lower abdominal pain, improved with PRN dilaudid and scheduled tylenol. Tolerating PO intake well and Ensures with meals. Exam Vital Signs Temp Pulse Resp BP Pulse Ox O2 Del Method 97.9 F 112 H 17 118/77 92 L Room Air 09/07/25 04:00 09/07/25 05:26 09/07/25 04:00 09/07/25 05:26 09/07/25 04:00 09/07/25 04:00 Narrative Exam General: No acute distress, Eye: PERRL, EOMI, normal conjunctiva, no scleral icterus HENT: Normocephalic, atraumatic, normal hearing, dry oral mucosa Neck: Supple, non-tender, no JVD, no lymphadenopathy Lungs: Clear to auscultation bilaterally, non-labored respirations, symmetric chest rise, no use of accessory muscles Heart: Normal S1 and S2, no S3 or S4 appreciated. Normal rate and regular rhythm, no murmurs, rubs gallops, or edema. Peripheral pulses intact bilaterally, capillary refill brisk distally Abdomen: Lower abdomen TTP; transverse surgical scar which is completely closed with some surrounding errythema but no puralent drainage, no dehissience. ileostomy bag in place draining brown liquid leaking some liquid small bowel contents Musculoskeletal: Normal range of motion and strength, no tenderness or swelling Skin: Skin is warm, dry, no rashes or lesions. Neurologic: Alert, awake and oriented x3. CN II-XII grossly intact. No focal neuro deficits. No signs of meningeal irritation noted. Psychiatric: Cooperative, appropriate mood and affect Objective Labs 09/07/25 05:20 09/07/25 13:43 Labs: Laboratory Results - last 24 hr 09/06/25 09/06/25 09/07/25 16:05 21:00 00:41 WBC RBC Hgb Hct MCV MCH MCHC RDW Std Deviation Plt Count Neut % (Auto) Lymph % (Auto) [place] % (Auto) Eos % (Auto) Baso % (Auto) Neut # (Auto) Lymph # (Auto) [place] # (Auto) Eos # (Auto) Baso # (Auto) Immature Gran # (Auto) Absolute Nucleated RBC Immature Gran % Nucleated RBC % Sodium 127 L 128 L Potassium 4.3 Chloride 89 L Carbon Dioxide 24.2 Anion Gap 14 BUN 29 H Creatinine 1.5 H Estim Creat Clear Calc 22.8 L eGFR 38 L BUN/Creatinine Ratio 19 Glucose 157 H D Calculated Osmolality 264 L Calcium 10.3 Corrected Calcium 10.3 H Phosphorus 5.5 H Magnesium Total Bilirubin AST ALT Alkaline Phosphatase Troponin I < 0.020 Total Protein Albumin 4.7 D Globulin Albumin/Globulin Ratio 09/07/25 05:20 WBC 11.6 H RBC 4.79 Hgb 14.1 Hct 41.5 MCV 87 MCH 29.4 MCHC 34.0 RDW Std Deviation 46.8 H Plt Count 387 D Neut % (Auto) 45 Lymph % (Auto) 39 [place] % (Auto) 8 Eos % (Auto) 7 Baso % (Auto) 1 Neut # (Auto) 5.2 Lymph # (Auto) 4.5 [place] # (Auto) 0.9 H Eos # (Auto) 0.8 H Baso # (Auto) 0.1 Immature Gran # (Auto) 0.06 H Absolute Nucleated RBC 0.00 Immature Gran % 1 H Nucleated RBC % 0 Sodium 128 L Potassium 4.0 Chloride 89 L Carbon Dioxide 24.6 Anion Gap 14 BUN 36 H Creatinine 1.6 H Estim Creat Clear Calc 21.4 L eGFR 36 L BUN/Creatinine Ratio 23 H Glucose 118 H Calculated Osmolality 266 L Calcium 10.7 H Corrected Calcium 10.7 H Phosphorus 5.5 H Magnesium 1.8 Total Bilirubin 0.6 AST 38 H ALT 24 Alkaline Phosphatase 286 H D Troponin I Total Protein 8.9 H Albumin 4.7 Globulin 4.2 H Albumin/Globulin Ratio 1.1 L Quality Measures Quality Measures VTE prophylaxis Advance care planning discussed with:: patient Assessment & Plan Assessment Current Active Medications: Generic Name Dose Route Start Last Admin Trade Name Brigitte PRN Reason Stop Dose Admin Acetaminophen 650 mg 09/04/25 09:00 09/07/25 05:26 Acetaminophen 325 Mg Tablet PO 10/04/25 08:59 Not Given Q6HR SHAWNA Hydromorphone HCl 2 mg 09/06/25 08:32 09/06/25 23:59 Hydromorphone Hcl 2 Mg Tablet PO 09/09/25 07:59 2 mg Q4HR PRN Administration PAIN SCALE 4-10(Mod-Sev Cefepime HCl 1 gm/ Sodium 50 mls @ 100 mls/hr 09/05/25 08:01 09/06/25 20:15 Chloride IV 09/12/25 08:00 100 mls/hr Q12HR SHAWNA Administration Midodrine 10 mg 09/04/25 11:00 09/07/25 05:26 Midodrine 5 Mg Tablet PO 10/04/25 10:59 10 mg TID SHAWNA Administration Nystatin 0 gm 09/06/25 21:00 09/06/25 20:18 Nystatin Pwd 15 Gm Btl TOP 10/06/25 20:59 1 applicatio BID SHAWNA Administration Ondansetron HCl 4 mg 09/06/25 10:53 09/07/25 05:26 Ondansetron Inj 2 Mg/Ml Inj 2 Ml IVP 10/06/25 10:52 4 mg Q6HR PRN Administration NAUSEA OR VOMITING Protocol Pantoprazole Sodium 40 mg 09/07/25 09:00 Pantoprazole 40 Mg Tablet PO 10/07/25 08:59 QDAY SHAWNA Phenazopyridine HCl 200 mg 09/06/25 17:30 09/06/25 17:12 Phenazopyridine Hcl 100 Mg Tablet PO 09/08/25 12:01 200 mg TIDWM SHAWNA Administration Plan Ms. Washington is a 65-year-old woman past medical history of invasive adenocarcinoma of the ascending colon s/p ex lap right hemicolectomy and ileotransverse anastomosis on 07/21 and an ex lap on 08/11 with resection of small bowel 2/2 multiple perforations and takedown of anastomosis and severe adhesions to the abdominal wall with diverting ileostomy. s/p TPN weaning at [facility] facility and resolution of L abdomen wound, previously with wound vac, pending placement with adequate ostomy wound care capabilities. pending wound care recs. #Subacute illiostomy leak #Multiple small bowel lacerations s/p ex lap and resection of small bowl and takedown of anastomosis and diverting ileostomy 08/11 #Abdominal abscess s/p IR drainage 08/10 #Pelvic abscess s/p IR drainage 08/09 #Invasive adenocarcinoma of ascending colon s/p ex lap R hemicolectomy and ilio transverse anastomosis 07/21 patient was discharged for [facility] after abdominal wound was much improved, no longer requiring wound vac, and weaned off of TPN and tolerating diet Dx - CTAP with No current abdominal or pelvic abscess, mild free fluid in the abdomen - CBC with nl wbc, no c/f active infection Plan: - Surgery Consulted, appreciate recs: per Dr. Suggs, there is no indication for surgical intervention at this time - wound care consulted, appreciate recs for outpatient management of leakage - Ysabel, wound care nurse, will evaluate patient on Saturday and provide recommendations. - plan to discharge to snf or other facility that can provide adequate ostomy wound care Pain mgmt: - Dilaudid 2mg PO q4hr PRN - APAP 650 po q6hr scheduled #UTI, Enterobacter aerogenes Has foul smelling urine, urinary frequency Plan: - Cefepime 1 g BID IV (09/05-) - Phenazopyridine 200 mg PO TID x6 doses - Bladder scan q6h -- straight cath if >300 cc in bladder #Electrolyte abnormalities #Moderate Hypotonic hyponatremia #Hyperphosphatemia #Hypercalcemia Na 129, serum osm 262 , eGFR 42-60, not on thiazides, no edema or ascites, asymptomatic Given 50 mL bolus hypertonic saline x1 09/06 Plan: - encourage PO intake - Pending urine electrolytes - Pending TSH, T4 - IVF 75 mL/hr x1 bag 09/07 - Pending repeat renal panel at 2 PM #STEPH Cr uptrending, BUN/Cr 23 Baseline Cr 0.9 Likely prerenal Plan: - Encourage PO intake - IVF 75 mL/hr x1 bag 09/07 - Pending repeat renal panel at 2 PM #Normocytic anemia - stable Likely 2/2 chronic disease of adenocarcinoma. Denies melena, hematochezia or hematemasis. s/p 2 pRBC during surgery Hgb stable Plan: - CTM with daily CBC #Hypotension Plan - Midodrine 10 mg TID #Chronic elevated Alk phos Plan: - CTM #Calorie protein Malnutrition Low BMI Plan: - Dietitian consulted, appreciate recs - Ensure with meals Checklist Dispo: Hyponatremia and STEPH mgmt Diet: mech 2 dysphagia, and ensures Bowel Reg: not indicated, has ostomy VTE ppx: scd GI ppx: protonix 40 PO daily Code status: FULL Plan discussed with Dr. Richy Finch and Dr. Maury Short MD PGY1 Attending Provider Attestation/Addendum I have seen and examined the patient. I was physically present for the [place] portions of the services provided including history, physical exam, diagnosis, treatment plans and orders. I agree with assessment and plan of care as documented by residents. Even though this this note was carefully revised there may still be minor errors in terminal worker due to voice recognition software. Logan Mendiola MD
[2025-09-07] MEDS: CEFEPIME INJ 1 GM in SODIUM CHLORIDE 0.9% (Popper) 50 ML IV ×2 (08:50→21:43)
[2025-09-07] MEDS: PANTOPRAZOLE 40 MG TABLET PO (08:51)
[2025-09-07] MEDS: PHENAZOPYRIDINE HCL 100 MG TABLET 200 MG PO ×3 (08:51→17:29)
[2025-09-07] MEDS: HYDROMORPHONE HCL 2 MG TABLET PO ×3 (08:51→21:49)
[2025-09-07] MEDS: NYSTATIN PWD 15 GM BTL TOP ×2 (08:51→21:43)
[2025-09-07 08:59] LABS: Free T4 (Free Thyroxine) 1.66 ng/dL (0.89-1.76); Thyroid Stimulating Hormone 5.23 uIU/mL (0.55-4.78)
[2025-09-07] MEDS: SODIUM CHLORIDE 0.9% 1000 ML 1,000 ML 75 ML IV (11:10)
[2025-09-07 11:58] LABS: Bilirubin,Urine 1+ (Negative); Blood,Urine Negative (Negative); Collection Type, Urine Clean Catch; Color,Urine Drk-Orange (Lt Yel-Yel); Glucose, Urine Negative (Negative); Ketones,Urine Negative (Negative); Leukocyte Esterase,Urine Positive (Negative); Nitrite,Urine Positive (Negative); PH,Urine 5.0 (5.0-7.0); Protein,Urine 1+ (Neg - Trace); RBC,Urine 10 /hpf (0-3); Specific Gravity,Urine 1.023 (1.001-1.035); Squamous Epithelial Cell,Urine 7 /hpf (0-5); Urobilinogen,Urine 2.0 mg/dL (0.0-1.0); WBC,Urine 224 /hpf (0-5)
[2025-09-07 12:34] LABS: Chloride,Urine Random < 20.0 mMol/L (55.0-125.0); Potassium,Urine Random 73 mMol/L (12-62); Sodium,Urine Random < 10.0 mMol/L (20.0-110.0)
[2025-09-07 12:57] LABS: Clarity,Urine Hazy (Clear/Hazy)
[2025-09-07 14:49] LABS: Albumin, Serum 4.4 gm/dL (3.4-4.8); Anion Gap 13 (7-16); BUN/Creatinine Ratio 19 Ratio (12-20); Blood Urea Nitrogen 36 mg/dL (9-23); Calcium 10.0 mg/dL (8.3-10.6); Calcium (Corrected) 10.0 mg/dL (8.5-10.1); Carbon Dioxide 23.8 mMol/L (20.0-31.0); Chloride 90 mMol/L (98-107); Creatinine (Component) 1.9 mg/dL (0.6-1.3); Estimated Creatinine Clearance 18.0 mL/min (>60); Glucose 144 mg/dL (74-106); Osmolality,Calculated 266 (275-295); Phosphorous 4.7 mg/dL (2.4-5.1); Potassium 4.2 mMol/L (3.4-5.1); Sodium 127 mMol/L (136-145); eGFR 29 See Note
[2025-09-08] VITALS (8 sets, daily range): BP systolic 109–144; BP diastolic 67–84; PULSE 62–87; RESP 13–18; TEMP 36.1–36.3; O2SAT 94–97
[2025-09-08 01:07] LABS: Albumin, Serum 4.2 gm/dL (3.4-4.8); Anion Gap 11 (7-16); BUN/Creatinine Ratio 18 Ratio (12-20); Blood Urea Nitrogen 34 mg/dL (9-23); Calcium 9.4 mg/dL (8.3-10.6); Calcium (Corrected) 9.4 mg/dL (8.5-10.1); Carbon Dioxide 24.0 mMol/L (20.0-31.0); Chloride 93 mMol/L (98-107); Creatinine (Component) 1.9 mg/dL (0.6-1.3); Estimated Creatinine Clearance 18.0 mL/min (>60); Glucose 110 mg/dL (74-106); Osmolality,Calculated 265 (275-295); Phosphorous 4.6 mg/dL (2.4-5.1); Potassium 4.3 mMol/L (3.4-5.1); Sodium 128 mMol/L (136-145); eGFR 29 See Note
[2025-09-08] MEDS: MIDODRINE 5 MG TABLET 10 MG PO (05:08)
[2025-09-08 05:40] LABS: Basophils # (Auto) 0.1 Thou/mm3 (0.0-0.2); Basophils % (Auto) 1 % (0-2.5); Eosinophils # (Auto) 0.6 Thou/mm3 (0.0-0.5); Eosinophils % (Auto) 7 % (0-10); Hematocrit 36.3 % (36.0-46.0); Hemoglobin 12.3 g/dL (12.0-16.0); Immature Granulocytes Auto 0.04 Thou/mm3 (0.00-0.00); Lymphocytes # (Auto) 2.8 Thou/mm3 (1.0-4.8); Lymphocytes % (Auto) 33 % (10-50); Mean Corpuscular HGB Conc 33.9 g/dl (31.0-37.0); Mean Corpuscular Hemoglobin 29.2 pg (25.0-35.0); Mean Corpuscular Volume 86 fL (80-100); Monocytes # (Auto) 0.7 Thou/mm3 (0.0-0.8); Monocytes % (Auto) 8 % (0-12); Neutrophils # (Auto) 4.3 Thou/mm3 (1.8-7.7); Neutrophils % (Auto) 51 % (37-80); Nucleated Red Blood Cell # 0.00 Thou/mm3 (0.00-0.00); Nucleated Red Blood Cell % 0 /100 WBC (0); Platelet Count 317 Thou/mm3 (140-440); RDW Standard Deviation 46.1 fL (36.4-46.3); Red Blood Count 4.21 Miln/mm3 (4.00-5.20); White Blood Count 8.5 Thou/mm3 (3.6-11.0)
[2025-09-08 06:31] LABS: Alanine Aminotransferase < 7 U/L (10-49); Albumin, Serum 4.1 gm/dL (3.4-4.8); Albumin/Globulin Ratio 1.1 (1.2-2.2); Alkaline Phosphatase 236 U/L (46-116); Anion Gap 11 (7-16); Aspartate Amino Transferase 31 U/L (0-34); BUN/Creatinine Ratio 18 Ratio (12-20); Bilirubin,Total 0.5 mg/dL (0.3-1.2); Blood Urea Nitrogen 33 mg/dL (9-23); Calcium 10.1 mg/dL (8.3-10.6); Calcium (Corrected) 10.1 mg/dL (8.5-10.1); Carbon Dioxide 23.1 mMol/L (20.0-31.0); Chloride 94 mMol/L (98-107); Creatinine (Component) 1.8 mg/dL (0.6-1.3); Estimated Creatinine Clearance 19.0 mL/min (>60); Globulin 3.6 gm/dL (2.3-3.5); Glucose 103 mg/dL (74-106); Magnesium 1.6 mg/dL (1.6-2.6); Osmolality,Calculated 264 (275-295); Phosphorous 4.7 mg/dL (2.4-5.1); Potassium 4.2 mMol/L (3.4-5.1); Sodium 128 mMol/L (136-145); Total Protein 7.7 gm/dL (5.7-8.2); eGFR 31 See Note
--- NOTE | 2025-09-08 07:57 | ESPR_ITS ---
<Statement entered by Heidi Finch MD - 09/08/25 17:41> Pt is seen at bedside, currently sitting in the chair at bedside, eating breakfast. Pt states she has no new complaints. Sodium is 128 and Cr. 1.8. Will continue NS and repeat renal panel. nephrology is on board. Pt is working on increasing oral diet, also eating food from home, pt is drinking ensures 3 times a day. Will continue to encourage pt to increase oral diet, will increase ensure to 4 times daily. No TPN at this time. Patient was seen and examined by me personally. I have directly supervised and reviewed documentation by the team resident and agree with its findings. ------- Plan of care was discussed with the attending, Dr. Maury Finch, PGY-2 Documentation for date of: 09/08/25 Subjective Subjective Interval history: NAEO. VSS. Reported coninued stable abdominal pain, improved with Dilaudid PRN. Has been eating a bit but mostly drinking her Ensures with each meal. Family also brings in external food for patient to eat. Exam Vital Signs Temp Pulse Resp BP Pulse Ox O2 Del Method 97.3 F 82 16 110/70 95 Nasal Cannula 09/08/25 04:00 09/08/25 05:08 09/08/25 04:00 09/08/25 05:08 09/08/25 04:00 09/08/25 04:00 Narrative Exam General: No acute distress, Eye: PERRL, EOMI, normal conjunctiva, no scleral icterus HENT: Normocephalic, atraumatic, normal hearing, dry oral mucosa Neck: Supple, non-tender, no JVD, no lymphadenopathy Lungs: Clear to auscultation bilaterally, non-labored respirations, symmetric chest rise, no use of accessory muscles Heart: Normal S1 and S2, no S3 or S4 appreciated. Normal rate and regular rhythm, no murmurs, rubs gallops, or edema. Peripheral pulses intact bilaterally, capillary refill brisk distally Abdomen: Lower abdomen TTP; transverse surgical scar which is completely closed with some surrounding errythema but no puralent drainage, no dehissience. ileostomy bag in place draining brown liquid leaking some liquid small bowel contents Musculoskeletal: Normal range of motion and strength, no tenderness or swelling Skin: Skin is warm, dry, no rashes or lesions. Neurologic: Alert, awake and oriented x3. CN II-XII grossly intact. No focal neuro deficits. No signs of meningeal irritation noted. Psychiatric: Cooperative, appropriate mood and affect Objective Labs 09/09/25 04:54 09/09/25 04:54 Labs: Laboratory Results - last 24 hr 09/07/25 09/07/25 09/07/25 05:20 11:30 13:43 WBC RBC Hgb Hct MCV MCH MCHC RDW Std Deviation Plt Count Neut % (Auto) Lymph % (Auto) [place] % (Auto) Eos % (Auto) Baso % (Auto) Neut # (Auto) Lymph # (Auto) [place] # (Auto) Eos # (Auto) Baso # (Auto) Immature Gran # (Auto) Absolute Nucleated RBC Immature Gran % Nucleated RBC % Sodium 127 L Potassium 4.2 Chloride 90 L Carbon Dioxide 23.8 Anion Gap 13 BUN 36 H Creatinine 1.9 H Estim Creat Clear Calc 18.0 L eGFR 29 L BUN/Creatinine Ratio 19 Glucose 144 H Calculated Osmolality 266 L Calcium 10.0 Corrected Calcium 10.0 Phosphorus 4.7 Magnesium Total Bilirubin AST ALT Alkaline Phosphatase Total Protein Albumin 4.4 Globulin Albumin/Globulin Ratio TSH 5.23 H Free T4 1.66 Ur Collection Type Clean Catch Urine Color Drk-[place] A Urine Clarity Hazy Urine pH 5.0 Ur Specific [place] 1.023 Urine Protein 1+ A Urine Glucose (UA) Negative Urine Ketones Negative Urine Blood Negative Urine Nitrite Positive Urine Bilirubin 1+ A Urine Urobilinogen (Auto) 2.0 Ur Leukocyte Esterase Positive Urine RBC 10 H Urine WBC 224 H Ur Squamous Epith Cells 7 H Urine Bacteria None Ur Random Sodium < 10.0 L Ur Random Potassium 73 H Ur Random Chloride < 20.0 L 09/08/25 09/08/25 00:31 05:05 WBC 8.5 RBC 4.21 Hgb 12.3 Hct 36.3 MCV 86 MCH 29.2 MCHC 33.9 RDW Std Deviation 46.1 Plt Count 317 D Neut % (Auto) 51 Lymph % (Auto) 33 [place] % (Auto) 8 Eos % (Auto) 7 Baso % (Auto) 1 Neut # (Auto) 4.3 Lymph # (Auto) 2.8 Brule # (Auto) 0.7 Eos # (Auto) 0.6 H Baso # (Auto) 0.1 Immature Gran # (Auto) 0.04 H Absolute Nucleated RBC 0.00 Immature Gran % 1 H Nucleated RBC % 0 Sodium 128 L 128 L Potassium 4.3 4.2 Chloride 93 L 94 L Carbon Dioxide 24.0 23.1 Anion Gap 11 11 BUN 34 H 33 H Creatinine 1.9 H 1.8 H Estim Creat Clear Calc 18.0 L 19.0 L eGFR 29 L 31 L BUN/Creatinine Ratio 18 18 Glucose 110 H 103 Calculated Osmolality 265 L 264 L Calcium 9.4 10.1 Corrected Calcium 9.4 10.1 Phosphorus 4.6 4.7 Magnesium 1.6 Total Bilirubin 0.5 AST 31 ALT < 7 L Alkaline Phosphatase 236 H D Total Protein 7.7 Albumin 4.2 4.1 Globulin 3.6 H Albumin/Globulin Ratio 1.1 L TSH Free T4 Ur Collection Type Urine Color Urine Clarity Urine pH Ur Specific [place] Urine Protein Urine Glucose (UA) Urine Ketones Urine Blood Urine Nitrite Urine Bilirubin Urine Urobilinogen (Auto) Ur Leukocyte Esterase Urine RBC Urine WBC Ur Squamous Epith Cells Urine Bacteria Ur Random Sodium Ur Random Potassium Ur Random Chloride Quality Measures Quality Measures VTE prophylaxis Advance care planning discussed with:: patient Assessment & Plan Assessment Current Active Medications: Generic Name Dose Route Start Last Admin Trade Name Freq PRN Reason Stop Dose Admin Acetaminophen 650 mg 09/04/25 09:00 09/08/25 05:02 Acetaminophen 325 Mg Tablet PO 10/04/25 08:59 Not Given Q6HR SHAWNA Hydromorphone HCl 2 mg 09/06/25 08:32 09/07/25 21:49 Hydromorphone Hcl 2 Mg Tablet PO 09/09/25 07:59 2 mg Q4HR PRN Administration PAIN SCALE 4-10(Mod-Sev Cefepime HCl 1 gm/ Sodium 50 mls @ 100 mls/hr 09/05/25 08:01 09/07/25 21:43 Chloride IV 09/12/25 08:00 100 mls/hr Q12HR SHAWNA Administration Magnesium Sulfate 4 gm in 50 mls @ 12.5 mls/hr 09/08/25 07:53 Magnesium Sulfate Ivpb IV 09/08/25 11:52 X1 ONE Sodium Chloride 1,000 mls @ 80 mls/hr 09/08/25 07:55 Ns IV 10/08/25 07:54 .[id number] SHAWNA Midodrine 10 mg 11/22/25 11:00 09/08/25 05:08 Midodrine 5 Mg Tablet PO 10/04/25 10:59 10 mg TID SHAWNA Administration Nystatin 0 gm 09/06/25 21:00 09/07/25 21:43 Nystatin Pwd 15 Gm Btl TOP 10/06/25 20:59 1 applicatio BID SHAWNA Administration Ondansetron HCl 4 mg 09/06/25 10:53 09/07/25 13:03 Ondansetron Inj 2 Mg/Ml Inj 2 Ml IVP 10/06/25 10:52 4 mg Q6HR PRN Administration NAUSEA OR VOMITING Protocol Pantoprazole Sodium 40 mg 09/07/25 09:00 09/07/25 08:51 Pantoprazole 40 Mg Tablet PO 10/07/25 08:59 40 mg QDAY SHAWNA Administration Phenazopyridine HCl 200 mg 09/06/25 17:30 09/07/25 17:29 Phenazopyridine Hcl 100 Mg Tablet PO 09/08/25 12:01 200 mg TIDWM SHAWNA Administration Plan Ms. Washington is a 65-year-old woman past medical history of invasive adenocarcinoma of the ascending colon s/p ex lap right hemicolectomy and ileotransverse anastomosis on 07/21 and an ex lap on 08/11 with resection of small bowel 2/2 multiple perforations and takedown of anastomosis and severe adhesions to the abdominal wall with diverting ileostomy. s/p TPN weaning at [facility] facility and resolution of L abdomen wound, previously with wound vac, pending placement with adequate ostomy wound care capabilities. pending wound care recs. #Subacute illiostomy leak #Multiple small bowel lacerations s/p ex lap and resection of small bowl and takedown of anastomosis and diverting ileostomy 08/11 #Abdominal abscess s/p IR drainage 08/10 #Pelvic abscess s/p IR drainage 08/09 #Invasive adenocarcinoma of ascending colon s/p ex lap R hemicolectomy and ilio transverse anastomosis 07/21 patient was discharged for [facility] facility after abdominal wound was much improved, no longer requiring wound vac, and weaned off of TPN and tolerating diet Dx - CTAP with No current abdominal or pelvic abscess, mild free fluid in the abdomen - CBC with nl wbc, no c/f active infection Plan: - Surgery Consulted, appreciate recs: per Dr. Suggs, there is no indication for surgical intervention at this time - wound care consulted, appreciate recs for outpatient management of leakage - Ysabel, wound care nurse, will evaluate patient on Saturday and provide recommendations. - plan to discharge to snf or other facility that can provide adequate ostomy wound care Pain mgmt: - Dilaudid 2mg PO q4hr PRN - APAP 650 po q6hr scheduled #UTI, Enterobacter aerogenes Has foul smelling urine, urinary frequency UA 09/03 +LE, 8 WBC, 3+ bacteria Repeat UA 09/07 1+ protein, +nitrite, +LE, 1+ bilirubin, 10 RBC, 224 WBC, 7 squamous epithelial cells Plan: - Cefepime 1 g BID IV (09/05-) - Phenazopyridine 200 mg PO TID x6 doses - Bladder scan q6h -- straight cath if >300 cc in bladder - Pending repeat urine cx #Electrolyte abnormalities #Moderate Hypovolemic Hypotonic Hyponatremia #Hyperphosphatemia - resolved #Hypercalcemia - resolved Na 127-129, serum osm 262 , eGFR 42-60, not on thiazides, no edema or ascites, asymptomatic Urine Na <10, K high (73), Cl <20 TSH high (5.23), T4 WNL (1.66) Given 50 mL bolus hypertonic saline x1 09/06 s/p 1L NS Plan: - encourage PO intake - Pending urine osm - IVF 80 mL/hr - CTM with daily BMP #STEPH Cr uptrending, BUN/Cr 23 Baseline Cr 0.9 Likely prerenal s/p 1L NS Plan: - Encourage PO intake - IVF 80 mL/hr x1 bag 09/07 - CTM with daily BMP #Normocytic anemia - stable Likely 2/2 chronic disease of adenocarcinoma. Denies melena, hematochezia or hematemasis. s/p 2 pRBC during surgery Hgb stable Plan: - CTM with daily CBC #Hypotension Plan - Midodrine 10 mg TID #Chronic elevated Alk phos Plan: - CTM #Calorie protein Malnutrition Low BMI Plan: - Dietitian consulted, appreciate recs - Ensure with meals Checklist Dispo: Hyponatremia and STEPH mgmt Diet: mech 2 dysphagia, and ensures Bowel Reg: not indicated, has ostomy VTE ppx: scd GI ppx: protonix 40 PO daily Code status: FULL Plan discussed with Dr. Richy Finch and Dr. Maury Short MD PGY1 Attending Provider Attestation/Addendum I have seen and examined the patient. I was physically present for the [place] portions of the services provided including history, physical exam, diagnosis, treatment plans and orders. I agree with assessment and plan of care as documented by residents. Patient seen and examined at bedside this morning. Continues to have abdominal pain around ostomy site. Has been able to have small meals and drink Ensure. Family has been bringing outside food and encouraging patient to eat. Continues to be on IV antibiotics for UTI. Continues to be on IV hydration, STEPH improving. We will continue to monitor her oral intake and kidney function, physical therapy ordered, we will encourage ambulation. Even though this this note was carefully revised there may still be minor errors in cloud consultant due to voice recognition software. Logan Mendiola MD
[2025-09-08] MEDS: SODIUM CHLORIDE 0.9% 1000 ML 1,000 ML 80 ML IV ×2 (08:04→22:59)
[2025-09-08] MEDS: PANTOPRAZOLE 40 MG TABLET PO (08:05)
[2025-09-08] MEDS: Magnesium Sulfate 4 GM Ivpb 4 GM/50 ML BAG IV (08:05)
[2025-09-08] MEDS: PHENAZOPYRIDINE HCL 100 MG TABLET 200 MG PO ×2 (08:05→12:47)
[2025-09-08] MEDS: NYSTATIN PWD 15 GM BTL TOP ×2 (08:05→22:18)
[2025-09-08] MEDS: CEFEPIME INJ 1 GM in SODIUM CHLORIDE 0.9% (Popper) 50 ML IV ×2 (08:05→22:17)
[2025-09-08] MEDS: HYDROMORPHONE HCL 2 MG TABLET PO ×2 (08:12→18:30)
--- NOTE | 2025-09-08 09:50 | PC.SS ---
rounding note: STEPH worsening. Nephrology consult
[2025-09-08 17:12] LABS: Albumin, Serum 4.0 gm/dL (3.4-4.8); Anion Gap 11 (7-16); BUN/Creatinine Ratio 22 Ratio (12-20); Blood Urea Nitrogen 28 mg/dL (9-23); Calcium 9.0 mg/dL (8.3-10.6); Calcium (Corrected) 9.0 mg/dL (8.5-10.1); Carbon Dioxide 21.7 mMol/L (20.0-31.0); Chloride 96 mMol/L (98-107); Creatinine (Component) 1.3 mg/dL (0.6-1.3); Estimated Creatinine Clearance 26.3 mL/min (>60); Glucose 104 mg/dL (74-106); Osmolality,Calculated 264 (275-295); Phosphorous 3.5 mg/dL (2.4-5.1); Potassium 4.0 mMol/L (3.4-5.1); Sodium 129 mMol/L (136-145); eGFR 46 See Note
--- NOTE | 2025-09-08 17:16 | PC.PT ---
Patient is safe to ambulate to the bathroom and in the halls with 1 staff or family and no AD. RN made aware.
[2025-09-09] VITALS (13 sets, daily range): BP systolic 94–112; BP diastolic 55–69; PULSE 56–102; RESP 13–24; TEMP 36.2–36.6; O2SAT 96–99; BMI 21.8
[2025-09-09] MEDS: HYDROMORPHONE HCL 2 MG TABLET PO ×4 (00:23→21:29)
[2025-09-09 05:26] LABS: Basophils # (Auto) 0.1 Thou/mm3 (0.0-0.2); Basophils % (Auto) 1 % (0-2.5); Eosinophils # (Auto) 0.4 Thou/mm3 (0.0-0.5); Eosinophils % (Auto) 6 % (0-10); Hematocrit 32.6 % (36.0-46.0); Hemoglobin 10.9 g/dL (12.0-16.0); Immature Granulocytes Auto 0.04 Thou/mm3 (0.00-0.00); Lymphocytes # (Auto) 2.0 Thou/mm3 (1.0-4.8); Lymphocytes % (Auto) 29 % (10-50); Mean Corpuscular HGB Conc 33.4 g/dl (31.0-37.0); Mean Corpuscular Hemoglobin 28.9 pg (25.0-35.0); Mean Corpuscular Volume 87 fL (80-100); Monocytes # (Auto) 0.6 Thou/mm3 (0.0-0.8); Monocytes % (Auto) 9 % (0-12); Neutrophils # (Auto) 3.8 Thou/mm3 (1.8-7.7); Neutrophils % (Auto) 56 % (37-80); Nucleated Red Blood Cell # 0.00 Thou/mm3 (0.00-0.00); Nucleated Red Blood Cell % 0 /100 WBC (0); Platelet Count 249 Thou/mm3 (140-440); RDW Standard Deviation 45.3 fL (36.4-46.3); Red Blood Count 3.77 Miln/mm3 (4.00-5.20); White Blood Count 6.9 Thou/mm3 (3.6-11.0)
[2025-09-09 06:24] LABS: Alanine Aminotransferase 14 U/L (10-49); Albumin, Serum 3.8 gm/dL (3.4-4.8); Albumin/Globulin Ratio 1.1 (1.2-2.2); Alkaline Phosphatase 198 U/L (46-116); Anion Gap 9 (7-16); Aspartate Amino Transferase 29 U/L (0-34); BUN/Creatinine Ratio 30 Ratio (12-20); Bilirubin,Total 0.4 mg/dL (0.3-1.2); Blood Urea Nitrogen 27 mg/dL (9-23); Calcium 8.5 mg/dL (8.3-10.6); Calcium (Corrected) 8.7 mg/dL (8.5-10.1); Carbon Dioxide 23.3 mMol/L (20.0-31.0); Chloride 100 mMol/L (98-107); Creatinine (Component) 0.9 mg/dL (0.6-1.3); Estimated Creatinine Clearance 38.0 mL/min (>60); Globulin 3.4 gm/dL (2.3-3.5); Glucose 98 mg/dL (74-106); Magnesium 2.8 mg/dL (1.6-2.6); Osmolality,Calculated 269 (275-295); Phosphorous 2.8 mg/dL (2.4-5.1); Potassium 3.5 mMol/L (3.4-5.1); Sodium 132 mMol/L (136-145); Total Protein 7.2 gm/dL (5.7-8.2); eGFR > 60 See Note
--- NOTE | 2025-09-09 08:30 | PD.RESPRO ---
Documentation for date of: 09/09/25 Subjective Subjective Interval history: NAEO. VSS. Continues to eat food that family brings from home as well as Ensures with meals. Current pain management working appropriately per patient. Exam Vital Signs Temp Pulse Resp BP Pulse Ox O2 Del Method 97.3 F 67 16 108/63 98 Nasal Cannula 09/09/25 03:56 09/09/25 07:33 09/09/25 03:56 09/09/25 06:16 09/09/25 03:56 09/09/25 03:56 Narrative Exam General: No acute distress, Eye: PERRL, EOMI, normal conjunctiva, no scleral icterus HENT: Normocephalic, atraumatic, normal hearing, dry oral mucosa Neck: Supple, non-tender, no JVD, no lymphadenopathy Lungs: Clear to auscultation bilaterally, non-labored respirations, symmetric chest rise, no use of accessory muscles Heart: Normal S1 and S2, no S3 or S4 appreciated. Normal rate and regular rhythm, no murmurs, rubs gallops, or edema. Peripheral pulses intact bilaterally, capillary refill brisk distally Abdomen: Lower abdomen TTP; transverse surgical scar which is completely closed with some surrounding errythema but no puralent drainage, no dehissience. ileostomy bag in place draining brown liquid leaking some liquid small bowel contents Musculoskeletal: Normal range of motion and strength, no tenderness or swelling Skin: Skin is warm, dry, no rashes or lesions. Neurologic: Alert, awake and oriented x3. CN II-XII grossly intact. No focal neuro deficits. No signs of meningeal irritation noted. Psychiatric: Cooperative, appropriate mood and affect Objective Labs 09/09/25 04:54 09/09/25 04:54 Labs: Laboratory Results - last 24 hr 09/08/25 09/09/25 15:40 04:54 WBC 6.9 RBC 3.77 L Hgb 10.9 L Hct 32.6 L MCV 87 MCH 28.9 MCHC 33.4 RDW Std Deviation 45.3 Plt Count 249 D Neut % (Auto) 56 Lymph % (Auto) 29 [place] % (Auto) 9 Eos % (Auto) 6 Baso % (Auto) 1 Neut # (Auto) 3.8 Lymph # (Auto) 2.0 [place] # (Auto) 0.6 Eos # (Auto) 0.4 Baso # (Auto) 0.1 Immature Gran # (Auto) 0.04 H Absolute Nucleated RBC 0.00 Immature Gran % 1 H Nucleated RBC % 0 Sodium 129 L 132 L Potassium 4.0 3.5 D Chloride 96 L 100 Carbon Dioxide 21.7 23.3 Anion Gap 11 9 BUN 28 H 27 H Creatinine 1.3 D 0.9 Estim Creat Clear Calc 26.3 L 38.0 L eGFR 46 L > 60 BUN/Creatinine Ratio 22 H 30 H Glucose 104 98 Calculated Osmolality 264 L 269 L Calcium 9.0 8.5 Corrected Calcium 9.0 8.7 Phosphorus 3.5 2.8 Magnesium 2.8 H Total Bilirubin 0.4 AST 29 ALT 14 Alkaline Phosphatase 198 H D Total Protein 7.2 Albumin 4.0 3.8 Globulin 3.4 Albumin/Globulin Ratio 1.1 L Quality Measures Quality Measures VTE prophylaxis Advance care planning discussed with:: patient and child Assessment & Plan Assessment Current Active Medications: Generic Name Dose Route Start Last Admin Trade Name Freq PRN Reason Stop Dose Admin Acetaminophen 650 mg 09/04/25 09:00 09/09/25 06:16 Acetaminophen 325 Mg Tablet PO 10/04/25 08:59 Not Given Q6HR SHAWNA Cefepime HCl 1 gm/ Sodium 50 mls @ 100 mls/hr 09/05/25 08:01 09/08/25 22:17 Chloride IV 09/12/25 08:00 100 mls/hr Q12HR SHAWNA Administration Sodium Chloride 1,000 mls @ 80 mls/hr 09/08/25 07:55 09/08/25 22:59 Ns IV 10/08/25 07:54 80 mls/hr .[id number] SHAWNA Administration Midodrine 10 mg 09/04/25 11:00 09/09/25 06:16 Midodrine 5 Mg Tablet PO 10/04/25 10:59 Not Given TID SHAWNA Nystatin 0 gm 09/06/25 21:00 09/08/25 22:18 Nystatin Pwd 15 Gm Btl TOP 10/06/25 20:59 1 applicatio BID SHAWNA Administration Ondansetron HCl 4 mg 09/06/25 10:53 09/07/25 13:03 Ondansetron Inj 2 Mg/Ml Inj 2 Ml IVP 10/06/25 10:52 4 mg Q6HR PRN Administration NAUSEA OR VOMITING Protocol Pantoprazole Sodium 40 mg 09/07/25 09:00 09/08/25 08:05 Pantoprazole 40 Mg Tablet PO 10/07/25 08:59 40 mg QDAY SHAWNA Administration Plan Ms. Washington is a 65-year-old woman past medical history of invasive adenocarcinoma of the ascending colon s/p ex lap right hemicolectomy and ileotransverse anastomosis on 07/21 and an ex lap on 08/11 with resection of small bowel 2/2 multiple perforations and takedown of anastomosis and severe adhesions to the abdominal wall with diverting ileostomy. s/p TPN weaning at [facility] facility and resolution of L abdomen wound, previously with wound vac, pending placement with adequate ostomy wound care capabilities. pending wound care recs. #Subacute illiostomy leak #Multiple small bowel lacerations s/p ex lap and resection of small bowl and takedown of anastomosis and diverting ileostomy 08/11 #Abdominal abscess s/p IR drainage 08/10 #Pelvic abscess s/p IR drainage 08/09 #Invasive adenocarcinoma of ascending colon s/p ex lap R hemicolectomy and ilio transverse anastomosis 07/21 CTAP with no current abdominal or pelvic abscess, mild free fluid in the abdomen CBC with nl wbc, no c/f active infection Per Dr. Suggs, no indication for surgery at this time Plan: - wound care consulted - plan to discharge to snf or other facility that can provide adequate ostomy wound care and TPN Pain mgmt: - Dilaudid 2mg PO q4hr PRN - APAP 650 po q6hr scheduled #Calorie protein Malnutrition #Short bowel syndrome Low BMI Plan: - Dietitian consulted, appreciate recs - Ensure with meals - Per dynamiterRoxanne, patient is only getting ~1200 calories per day, goal at least 1500 calories/day. Due to short bowel syndrome, patient needs added nutrients with calorie goal going up to [id number] as she has poor absorption. Roxanne recommended TPN. IR most likely not available until Saturday. Will start PPN 09/09 with goal to put in PICC line 09/13 and start TPN same day #UTI, Enterobacter aerogenes Has foul smelling urine, urinary frequency UA 09/03 +LE, 8 WBC, 3+ bacteria Repeat UA 09/07 1+ protein, +nitrite, +LE, 1+ bilirubin, 10 RBC, 224 WBC, 7 squamous epithelial cells s/p Phenazopyridine 200 mg PO TID x6 doses s/p Cefepime 1 g BID IV (09/05-09/09) Plan: - Ciprofloxacin 500 mg PO BID (09/09-09/11) - Bladder scan q6h -- straight cath if >300 cc in bladder #Electrolyte abnormalities #Moderate Hypovolemic Hypotonic Hyponatremia - improving #Hyperphosphatemia - resolved #Hypercalcemia - resolved Na 127-129, serum osm 262 , eGFR 42-60, not on thiazides, no edema or ascites, asymptomatic Urine Na <10, K high (73), Cl <20 TSH high (5.23), T4 WNL (1.66) Given 50 mL bolus hypertonic saline x1 09/06 Plan: - encourage PO intake - Pending urine osm - IVF 80 mL/hr - CTM with daily BMP #STEPH - resolved Cr uptrending, BUN/Cr 23 Baseline Cr 0.9 Likely prerenal s/p 1L NS Improved with IVF Plan: - Encourage PO intake - IVF 80 mL/hr x1 bag 09/07 - CTM with daily BMP #Normocytic anemia - stable Likely 2/2 chronic disease of adenocarcinoma. Denies melena, hematochezia or hematemasis. s/p 2 pRBC during surgery Hgb stable Plan: - CTM with daily CBC #Hypotension Plan - Midodrine 10 mg TID #Chronic elevated Alk phos Improved with IVF Plan: - CTM Checklist Dispo: Hyponatremia mgmt. Pending PICC line for TPN Diet: mech 2 dysphagia, and ensures Bowel Reg: not indicated, has ostomy VTE ppx: scd GI ppx: protonix 40 PO daily Code status: FULL Plan discussed with Dr. Maury Short MD PGY1 Attending Provider Attestation/Addendum I have seen and examined the patient. I was physically present for the [place] portions of the services provided including history, physical exam, diagnosis, treatment plans and orders. I agree with assessment and plan of care as documented by residents. Patient seen and examined at bedside this morning. Appears comfortable but states that she continues to have abdominal pain. Vital signs are stable. Lab results show improvement in sodium and kidney function. Patient has been frequent small meals. Discussed with dietitian, who expressed concern about patient's inadequate oral intake, inability to reach her calorie goal and weight loss. Discussed with the patient regarding options for nutrition, patient agrees to start parenteral nutrition. We will start PPN, and transition to TPN once IR is available to place the PICC line. We will also start her on appetite stimulant. Even though this this note was carefully revised there may still be minor errors in geotechnical operating engineer due to voice recognition software. Logan Mendiola MD
[2025-09-09] MEDS: SODIUM CHLORIDE 0.9% 1000 ML 1,000 ML 80 ML IV ×2 (09:49→21:46)
[2025-09-09] MEDS: CEFEPIME INJ 1 GM in SODIUM CHLORIDE 0.9% (Popper) 50 ML IV (09:49)
[2025-09-09] MEDS: PANTOPRAZOLE 40 MG TABLET PO (09:49)
[2025-09-09] MEDS: NYSTATIN PWD 15 GM BTL TOP ×2 (09:57→21:29)
[2025-09-09] MEDS: MIDODRINE 5 MG TABLET 10 MG PO ×2 (13:01→21:45)
--- NOTE | 2025-09-09 13:18 | PC.SS ---
Addendum entered by Tiffanie Machado 09/09/25 16:07: Patient's son Dionisio [phone] was contacted and informed patient will not be discharging. Dionisio inquiring about patient's discharge plan to SNF with TPN. Explained to Dionisio SS has already submitted clinicals for review to [facility] and awaiting response regarding TPN, wound care need, etc. Dionisio informed SS patient's name is Karen Washington. Addendum entered by Tiffanie Machado 09/09/25 15:56: Informed by Dr. Mendiola, TPN being recommended and PICC line pending insertion. [facility] Admin-[place] informed, she requested Wound Care Notes be submitted and for SS to confirm if patient is currently TPN. Updated clinicals submitted via [place] to [facility]. Original Note: Informed by Dr. Short, patient may discharge today. Contacted patient's son Dionisio to confirm discharge plan, Dionisio stated [facility] is 1st choice, [facility] 2nd choice. Patient's son requesting patient stay an additional day due to holiday, SS explained [facility] admin. would also need to confirm acceptance for today. SS attempted to contact [facility] Admin. [place], response is pending.
[2025-09-09] MEDS: Artificial Tears 225 DROP/15 ML BTL BOTH EYES (17:08)
[2025-09-09] MEDS: CIPROFLOXACIN HCL 250 MG TABLET 500 MG PO (21:29)
[2025-09-10] VITALS (10 sets, daily range): BP systolic 94–124; BP diastolic 50–70; PULSE 57–91; RESP 18–22; TEMP 36.1–36.4; O2SAT 94–99
[2025-09-10 05:50] LABS: Basophils # (Auto) 0.1 Thou/mm3 (0.0-0.2); Basophils % (Auto) 1 % (0-2.5); Eosinophils # (Auto) 0.4 Thou/mm3 (0.0-0.5); Eosinophils % (Auto) 5 % (0-10); Hematocrit 30.8 % (36.0-46.0); Hemoglobin 10.5 g/dL (12.0-16.0); Immature Granulocytes Auto 0.04 Thou/mm3 (0.00-0.00); Lymphocytes # (Auto) 2.2 Thou/mm3 (1.0-4.8); Lymphocytes % (Auto) 33 % (10-50); Mean Corpuscular HGB Conc 34.1 g/dl (31.0-37.0); Mean Corpuscular Hemoglobin 30.0 pg (25.0-35.0); Mean Corpuscular Volume 88 fL (80-100); Monocytes # (Auto) 0.6 Thou/mm3 (0.0-0.8); Monocytes % (Auto) 9 % (0-12); Neutrophils # (Auto) 3.5 Thou/mm3 (1.8-7.7); Neutrophils % (Auto) 52 % (37-80); Nucleated Red Blood Cell # 0.00 Thou/mm3 (0.00-0.00); Nucleated Red Blood Cell % 0 /100 WBC (0); Platelet Count 219 Thou/mm3 (140-440); RDW Standard Deviation 46.7 fL (36.4-46.3); Red Blood Count 3.50 Miln/mm3 (4.00-5.20); White Blood Count 6.8 Thou/mm3 (3.6-11.0)
[2025-09-10 06:08] LABS: INR 1.0 (0.9-1.3); Partial Thromboplastin Time 21.4 Seconds (22.0-36.0); Prothrombin Time 10.7 Seconds (9.0-12.2)
[2025-09-10 06:32] LABS: Alanine Aminotransferase 13 U/L (10-49); Albumin, Serum 3.4 gm/dL (3.4-4.8); Albumin/Globulin Ratio 1.1 (1.2-2.2); Alkaline Phosphatase 172 U/L (46-116); Anion Gap 8 (7-16); Aspartate Amino Transferase 26 U/L (0-34); BUN/Creatinine Ratio 27 Ratio (12-20); Bilirubin,Total 0.4 mg/dL (0.3-1.2); Blood Urea Nitrogen 16 mg/dL (9-23); Calcium 8.5 mg/dL (8.3-10.6); Calcium (Corrected) 9.0 mg/dL (8.5-10.1); Carbon Dioxide 22.3 mMol/L (20.0-31.0); Chloride 105 mMol/L (98-107); Creatinine (Component) 0.6 mg/dL (0.6-1.3); Estimated Creatinine Clearance 57.0 mL/min (>60); Globulin 3.0 gm/dL (2.3-3.5); Glucose 90 mg/dL (74-106); Magnesium 2.0 mg/dL (1.6-2.6); Osmolality,Calculated 271 (275-295); Phosphorous 2.2 mg/dL (2.4-5.1); Potassium 3.8 mMol/L (3.4-5.1); Sodium 135 mMol/L (136-145); Total Protein 6.4 gm/dL (5.7-8.2); eGFR > 60 See Note
--- NOTE | 2025-09-10 08:53 | PC.SS ---
Follow up note: Progress notes indicate that patient will need half-way TPN. However, most SNF's cannot take patient's on intermediate project manager TPN. There has to be an end date or peg tube. Family does not want to take patient home. If they did home health will more likely follow with TPN. Further discussion and planning will need to happen surrounding this.
[2025-09-10] MEDS: PANTOPRAZOLE 40 MG TABLET PO (09:10)
[2025-09-10] MEDS: HYDROMORPHONE HCL 2 MG TABLET PO (09:10)
[2025-09-10] MEDS: NYSTATIN PWD 15 GM BTL TOP ×2 (09:10→21:42)
[2025-09-10] MEDS: CIPROFLOXACIN HCL 250 MG TABLET 500 MG PO ×2 (09:10→21:42)
[2025-09-10] MEDS: NAPH,KPH MBDB 1 PACKET (1.5 GM) PO (11:36)
[2025-09-10] MEDS: SODIUM CHLORIDE 0.9% 1000 ML 1,000 ML 80 ML IV (11:36)
--- NOTE | 2025-09-10 15:54 | ESPR_ITS ---
Documentation for date of: 09/10/25 Subjective Subjective Interval history: No overnight events, pt is seen and examined at bedside. This morning pt was briefly sitting in the chair at bedside to eat breakfast. complains of abdominal pain which responds to the oral dilaudid. Pt states she is trying her best to increase her oral intake. no new complaints Vitals are stable, pt has remained afebrile. Will continue antibiotics for UTI until tomorrow which will be her last dose to complete course of 7 days. Due to concerns for ongoing weight loss and decrease oral intake, PPN is restarted through peripheral line for now. Will consult GI for further recommendations regarding if Pt will benefit from PEG tube feeds vs.TPN for which pt will need a PICC line. Exam Vital Signs Temp Pulse Resp BP Pulse Ox O2 Del Method 97.0 F 78 18 101/56 L 95 Room Air 09/10/25 15:52 09/10/25 15:52 09/10/25 15:52 09/10/25 15:52 09/10/25 15:52 09/10/25 15:52 Narrative Exam General: frail, pleasant female, appears chronically ill, No acute distress Eye: PERRL, EOMI, normal conjunctiva, no scleral icterus HENT: Normocephalic, atraumatic, normal hearing, dry oral mucosa Neck: Supple, non-tender, no JVD, no lymphadenopathy Lungs: Clear to auscultation bilaterally, non-labored respirations, symmetric chest rise, no use of accessory muscles Heart: Normal S1 and S2, no S3 or S4 appreciated. Normal rate and regular rhythm, no murmurs, rubs gallops, or edema. Peripheral pulses intact bilaterally, capillary refill brisk distally Abdomen: Lower abdomen TTP; transverse surgical scar which is completely closed with some surrounding erythema but no purulent drainage, no dehiscence. ileostomy bag in place draining brown liquid leaking some liquid small bowel contents Musculoskeletal: Normal range of motion and strength, no tenderness or swelling Skin: Skin is warm, dry, no rashes or lesions. Neurologic: Alert, awake and oriented x3. CN II-XII grossly intact. No focal neuro deficits. No signs of meningeal irritation noted. Psychiatric: Cooperative, appropriate mood and affect Objective Labs 09/11/25 05:41 09/11/25 12:42 Labs: Laboratory Results - last 24 hr 09/10/25 05:40 WBC 6.8 RBC 3.50 L Hgb 10.5 L Hct 30.8 L MCV 88 MCH 30.0 MCHC 34.1 RDW Std Deviation 46.7 H Plt Count 219 D Neut % (Auto) 52 Lymph % (Auto) 33 Wallace % (Auto) 9 Eos % (Auto) 5 Baso % (Auto) 1 Neut # (Auto) 3.5 Lymph # (Auto) 2.2 Wallace # (Auto) 0.6 Eos # (Auto) 0.4 Baso # (Auto) 0.1 Immature Gran # (Auto) 0.04 H Absolute Nucleated RBC 0.00 Immature Gran % 1 H Nucleated RBC % 0 PT 10.7 INR 1.0 APTT 21.4 L Sodium 135 L Potassium 3.8 Chloride 105 Carbon Dioxide 22.3 Anion Gap 8 BUN 16 Creatinine 0.6 Estim Creat Clear Calc 57.0 L eGFR > 60 BUN/Creatinine Ratio 27 H Glucose 90 Calculated Osmolality 271 L Calcium 8.5 Corrected Calcium 9.0 Phosphorus 2.2 L Magnesium 2.0 Total Bilirubin 0.4 AST 26 ALT 13 Alkaline Phosphatase 172 H D Total Protein 6.4 Albumin 3.4 Globulin 3.0 Albumin/Globulin Ratio 1.1 L Quality Measures Quality Measures VTE prophylaxis Advance care planning discussed with:: patient Assessment & Plan Assessment Current Active Medications: Generic Name Dose Route Start Last Admin Trade Name Freq PRN Reason Stop Dose Admin Acetaminophen 650 mg 09/10/25 10:28 Acetaminophen 325 Mg Tablet PO 10/10/25 10:26 PRN PRN abdominal pain Artificial Tears 0 drop 09/09/25 16:07 09/09/25 17:08 Artificial Tears 225 Drop/15 Ml Btl BOTH EYES 10/09/25 16:06 2 drop PRN PRN Administration eye irritation, itchiness Ciprofloxacin 500 mg 09/09/25 21:00 09/10/25 09:10 Ciprofloxacin Hcl 250 Mg Tablet PO 09/16/25 20:59 500 mg BID SHAWNA Administration Dextrose 25 ml 09/09/25 16:16 Dextrose 50%-Water Inj 50 Ml Syringe IV 10/09/25 16:15 Q15MIN PRN BG 50-70 responsive npo pt Dextrose 50 ml 09/09/25 16:16 Dextrose 50%-Water Inj 50 Ml Syringe IV 10/09/25 16:15 Q15MIN PRN BG <50 OR BG <70 & pt unresponsive Dronabinol 2.5 mg 09/09/25 17:00 09/10/25 09:10 Dronabinol 2.5 Mg Capsule PO 10/09/25 16:59 2.5 mg BIDAC SHAWNA Administration Glucagon 1 mg 09/09/25 16:16 Glucagon Inj 1 Mg Vial IM Q15MIN PRN BG <70, and no IV access Hydromorphone HCl 2 mg 09/09/25 09:10 09/10/25 09:10 Hydromorphone Hcl 2 Mg Tablet PO 09/14/25 09:09 2 mg Q4HR PRN Administration pain 5-10 Sodium Chloride 1,000 mls @ 80 mls/hr 09/09/25 09:11 09/10/25 11:36 Ns IV 10/09/25 09:10 80 mls/hr .[id number] SHAWNA Administration Fat Emulsion Intravenous 500 mls @ 32 mls/hr 09/10/25 18:00 Intralipid 20% Iv IV 10/10/25 17:59 [id number] [facility] Potassium Chloride 20 meq/ 2,020 mls @ 30 mls/hr 09/09/25 18:00 09/09/25 18:55 Multivitamins/Minerals 10 ml/ IV 09/10/25 17:59 Not Given Amino Acids Q24H [facility] Potassium Phosphate 15 mmol/ 2,005 mls @ 75 mls/hr 09/10/25 18:00 Amino Acids/Electrolytes/ IV 09/11/25 17:59 Dextrose Q24H [facility] Insulin Human Lispro 0 unit 09/09/25 18:00 09/10/25 11:45 Insulin Lispro (Admelog) 1 Unit/0.01 Ml Unit SC 10/09/25 17:59 Not Given Q6HR [facility] Protocol Midodrine 10 mg 09/04/25 11:00 09/10/25 13:46 Midodrine 5 Mg Tablet PO 10/04/25 10:59 Not Given TID SHAWNA Nystatin 0 gm 09/06/25 21:00 09/10/25 09:10 Nystatin Pwd 15 Gm Btl TOP 10/06/25 20:59 1 applicatio BID SHAWNA Administration Ondansetron HCl 4 mg 09/06/25 10:53 09/07/25 13:03 Ondansetron Inj 2 Mg/Ml Inj 2 Ml IVP 10/06/25 10:52 4 mg Q6HR PRN Administration NAUSEA OR VOMITING Protocol Pantoprazole Sodium 40 mg 09/07/25 09:00 09/10/25 09:10 Pantoprazole 40 Mg Tablet PO 10/07/25 08:59 40 mg QDAY SHAWNA Administration Pharmacy Consult 1 each 09/09/25 15:27 Pha To Consult Parenteral Nutr 1 Each Each XX 10/09/25 15:26 PRN PRN CONSULT Thiamine HCl 100 mg 09/11/25 09:00 Thiamine Inj 100 Mg/Ml Vial 2 Ml IVP 10/11/25 08:59 QDAY SHAWNA Plan Ms. Washington is a 65-year-old woman past medical history of invasive adenocarcinoma of the ascending colon s/p ex lap right hemicolectomy and ileotransverse anastomosis on 07/21 and an ex lap on 08/11 with resection of small bowel 2/2 multiple perforations and takedown of anastomosis and severe adhesions to the abdominal wall with diverting ileostomy. s/p TPN weaning at [facility] facility and resolution of L abdomen wound, previously with wound vac, pending placement with adequate ostomy wound care capabilities. pending wound care recs. #UTI, Enterobacter aerogenes Has foul smelling urine, urinary frequency and dysuria UA 09/03 +LE, 8 WBC, 3+ bacteria Repeat UA 09/07 1+ protein, +nitrite, +LE, 1+ bilirubin, 10 RBC, 224 WBC, 7 squamous epithelial cells s/p Phenazopyridine 200 mg PO TID x6 doses Plan: - Cefepime 1 g BID IV (09/05-09/09) - Ciprofloxacin 500 mg PO BID (09/09-09/11) - Bladder scan q6h -- straight cath if >300 cc in bladder #Subacute illiostomy leak #Multiple small bowel lacerations s/p ex lap and resection of small bowl with anastomosis and diverting ileostomy 08/11 #Abdominal abscess s/p IR drainage 08/10 #Pelvic abscess s/p IR drainage 08/09 #Invasive adenocarcinoma of ascending colon s/p R hemicolectomy with ilio transverse anastomosis 07/21 CTAP with no current abdominal or pelvic abscess, mild free fluid in the abdomen CBC with nl wbc, no c/f active infection Per Dr. Suggs, no indication for surgery at this time Plan: - wound care consulted - plan to discharge to snf or other facility that can provide adequate ostomy wound care and TPN Pain mgmt: - Dilaudid 2mg PO q4hr PRN - APAP 650 po q6hr scheduled #Calorie protein Malnutrition #Short bowel syndrome vs. #high-output ileostomy -Pt has had significant weight loss in the last 30 days. Pt has lost approximately 20kg since initial hospital admission in July - There is concern for continous weight loss depsite oral intake Pt is not meeting daily nutritional requirement. Per gas booster engineer, patient is only getting ~1200 calories per day, goal at least 1500 calories/day. Patient needs added nutrients with calorie goal going of [phone] therefore recommended TPN. Plan: - Dietitian consulted, appreciate recs - Ensure with meals (4 times daily) - Consulted GI, for further recommendations if Pt noelle benefit from PEG tube feeds vs. terminal make up operator TPN - IR most likely not available until Saturday. Will start PPN 09/10 through peripheral line for now with goal to put in PICC line 09/13 and start TPN same day #Electrolyte abnormalities #Moderate Hypovolemic Hypotonic Hyponatremia - improving #Hyperphosphatemia - resolved #Hypercalcemia - resolved Na 127-129, serum osm 262 , eGFR 42-60, not on thiazides, no edema or ascites, asymptomatic Urine Na <10, K high (73), Cl <20 TSH high (5.23), T4 WNL (1.66) Given 50 mL bolus hypertonic saline x1 09/06 and IV maintenance fluids given Plan: - encourage PO intake - Pending urine osm - CTM with daily BMP #STEPH - resolved Cr uptrending, BUN/Cr 23 Baseline Cr 0.9 Likely prerenal s/p 1L NS Improved with IVF Plan: - Encourage PO intake - IVF 80 mL/hr x1 bag 09/07 - CTM with daily BMP #Normocytic anemia - stable Likely 2/2 chronic disease of adenocarcinoma. Denies melena, hematochezia or hematemasis. s/p 2 pRBC during surgery Hgb stable Plan: - CTM with daily CBC #Hypotension Plan - Midodrine 10 mg TID #Chronic elevated Alk phos Improved with IVF Plan: - CTM Checklist Dispo: Hyponatremia mgmt. Pending PICC line for TPN Diet: mech 2 dysphagia, and ensures Bowel Reg: not indicated, has ostomy VTE ppx: scd GI ppx: protonix 40 PO daily Code status: FULL Assessment and plan discussed with my attending physician Dr. Maury Finch (PGY-2)- Internal medicine resident Attending Provider Attestation/Addendum I have seen and examined the patient. I was physically present for the [place] portions of the services provided including history, physical exam, diagnosis, treatment plans and orders. I agree with assessment and plan of care as documented by residents. Even though this this note was carefully revised there may still be minor errors in maternal fetal physician due to voice recognition software. Logan Mendiola MD
[2025-09-10] MEDS: FAT EMULSIONS 20% IV 500 ML 32 ML IV (17:50)
--- NOTE | 2025-09-10 18:31 | PD.IMCONS ---
HPI Data of Consult Requesting Physician: Logan Mendiola MD Primary Care Provider: Physician No Primary/Family Consult Narrative Reason for consult: Failure to thrive evaluation for PEG placement History of present illness: 65 years old female who on 07/21/2025 underwent right hemicolectomy with ilio transverse anastomosis subsequently having dissection of the small intestine later on with creation of ileostomy and was sent to [facility] and came home after rehab and had a leaking ileostomy and was brought back to the emergency room and subsequently admitted Patient has been managed on TPN and have been asked if he enteral ways of feeding can be established as patient's oral intake is not good cc:: cc: Logan Mendiola MD Review of Systems Review of Systems Systems Reviewed: All systems reviewed, normal except as documented Meds Home Medications and Allergies Home Medications ?Medication ?Instructions ?Recorded ?Confirmed ?Type acetaminophen 325 mg capsule 650 mg PO Q6H PRN pain(scale 1-6) 08/09/25 09/04/25 History cholecalciferol (vitamin D3) 25 25 mcg PO QDAY 09/04/25 09/04/25 History mcg (1,000 unit) tablet cyanocobalamin (vitamin B-12) 250 250 mcg PO QDAY 09/04/25 09/04/25 History mcg tablet (Vitamin B-12) folic acid 1 mg tablet 1 mg PO QDAY 09/04/25 09/04/25 History hydromorphone 2 mg tablet 4 mg PO Q4H PRN pain 09/04/25 09/04/25 History (Dilaudid) sennosides 8.6 mg tablet (senna) 8.6 mg PO QDAY 09/04/25 09/04/25 History sodium chloride 1 gram tablet 1,000 mg PO BID 09/04/25 09/04/25 History thiamine HCl (vitamin B1) 100 mg 100 mg PO QDAY 09/04/25 09/04/25 History tablet zinc sulfate 220 mg capsule 220 mg PO DAILY 09/04/25 09/04/25 History Allergies Allergy/AdvReac Type Severity Reaction Status Date / Time No Known Allergies Allergy Verified 09/04/25 05:20 Exam Vital Signs Temp Pulse Resp BP Pulse Ox O2 Del Method 97.0 F 67 18 101/56 L 95 Room Air 09/10/25 15:52 09/10/25 16:00 09/10/25 15:52 09/10/25 15:52 09/10/25 15:52 09/10/25 15:52 Constitutional Comments: Chronically ill-appearing Routine Respiratory Exam Comments: Normal to auscultation Routine Abdominal Exam Comments: Ileostomy in place Results Labs 09/10/25 05:40 09/10/25 05:40 Labs: Short CBC 09/10/25 Range/Units 05:40 WBC 6.8 (3.6-11.0) Thou/mm3 Hgb 10.5 L (12.0-16.0) g/dL Hct 30.8 L (36.0-46.0) % Plt Count 219 D (140-440) Thou/mm3 BMP 09/10/25 05:40 Sodium 135 L Potassium 3.8 Chloride 105 Carbon Dioxide 22.3 BUN 16 Creatinine 0.6 Glucose 90 Calcium 8.5 Liver Function 09/10/25 Range/Units 05:40 Total Bilirubin 0.4 (0.3-1.2) mg/dL AST 26 (0-34) U/L ALT 13 (10-49) U/L Alkaline Phosphatase 172 H D (46-116) U/L Albumin 3.4 (3.4-4.8) gm/dL Assessment and Plan Additional Assessment & Plan Additional Plan: # Failure to thrive will discuss with the family in detail As to the advantages versus disadvantages of placement of a gastrostomy tube and the risks involved with that including perforation of the viscus during placement of a PEG tube Once they make a decision We will definitely attempt to place the PEG tube for nutrition support The technical problems going to be there is a leaking ileostomy in the same region with a bag on it patient is current discussed with her family and I will have another discussion tomorrow and then in due course of time if the family agrees we can definitely attempt to place the PEG tube but this could be successful or not that can be only found if the procedure is attempted, it is not complete without challenge Other medical problems include Adenocarcinoma obstructing Requiring a right hemicolectomy with ileotransverse anastomosis later on small bowel resection and ileostomy Thank you very much for the opportunity to participate in the care of this patient
[2025-09-11] VITALS (13 sets, daily range): BP systolic 96–113; BP diastolic 54–69; PULSE 67–92; RESP 17–18; TEMP 36.1–36.6; O2SAT 93–99; BMI 21.8
[2025-09-11] MEDS: HYDROMORPHONE HCL 2 MG TABLET PO ×2 (03:43→10:01)
[2025-09-11 06:32] LABS: Basophils # (Auto) 0.0 Thou/mm3 (0.0-0.2); Basophils % (Auto) 1 % (0-2.5); Eosinophils # (Auto) 0.3 Thou/mm3 (0.0-0.5); Eosinophils % (Auto) 5 % (0-10); Hematocrit 30.4 % (36.0-46.0); Hemoglobin 10.3 g/dL (12.0-16.0); Immature Granulocytes Auto 0.03 Thou/mm3 (0.00-0.00); Lymphocytes # (Auto) 2.0 Thou/mm3 (1.0-4.8); Lymphocytes % (Auto) 30 % (10-50); Mean Corpuscular HGB Conc 33.9 g/dl (31.0-37.0); Mean Corpuscular Hemoglobin 29.9 pg (25.0-35.0); Mean Corpuscular Volume 88 fL (80-100); Monocytes # (Auto) 0.5 Thou/mm3 (0.0-0.8); Monocytes % (Auto) 8 % (0-12); Neutrophils # (Auto) 3.6 Thou/mm3 (1.8-7.7); Neutrophils % (Auto) 56 % (37-80); Nucleated Red Blood Cell # 0.00 Thou/mm3 (0.00-0.00); Nucleated Red Blood Cell % 0 /100 WBC (0); Platelet Count 251 Thou/mm3 (140-440); RDW Standard Deviation 46.5 fL (36.4-46.3); Red Blood Count 3.44 Miln/mm3 (4.00-5.20); White Blood Count 6.5 Thou/mm3 (3.6-11.0)
[2025-09-11 07:01] LABS: Alanine Aminotransferase 13 U/L (10-49); Albumin, Serum 3.4 gm/dL (3.4-4.8); Albumin/Globulin Ratio 1.3 (1.2-2.2); Alkaline Phosphatase 169 U/L (46-116); Anion Gap 9 (7-16); Aspartate Amino Transferase 26 U/L (0-34); BUN/Creatinine Ratio 28 Ratio (12-20); Bilirubin,Total < 0.2 mg/dL (0.3-1.2); Blood Urea Nitrogen 14 mg/dL (9-23); Calcium 9.1 mg/dL (8.3-10.6); Calcium (Corrected) 9.6 mg/dL (8.5-10.1); Carbon Dioxide 19.6 mMol/L (20.0-31.0); Chloride 105 mMol/L (98-107); Creatinine (Component) 0.5 mg/dL (0.6-1.3); Estimated Creatinine Clearance 68.4 mL/min (>60); Globulin 2.7 gm/dL (2.3-3.5); Glucose 117 mg/dL (74-106); Magnesium 1.6 mg/dL (1.6-2.6); Osmolality,Calculated 269 (275-295); Phosphorous 3.1 mg/dL (2.4-5.1); Potassium 4.2 mMol/L (3.4-5.1); Sodium 134 mMol/L (136-145); Total Protein 6.1 gm/dL (5.7-8.2); eGFR > 60 See Note
--- NOTE | 2025-09-11 08:11 | ESPR_ITS ---
<Statement entered by Heidi Finch MD - 09/11/25 15:37> Pt is seen at bedside, complains of abdominal pain. Pt is sitting in the chair at bedside eating breakfast, youngest son Dani has brought food from home. Per family, pt's decrease oral intake is a combination of chronic illness, decreased appetite therefore unable to meet daily nutritional requirement. Pt's family is leaning towards possible trying PEG tube along will oral intake. Will discuss with GI specialist if a trial of NG tube can be done before the PEG tube. Other option is half-way TPN. Vitals are stable and labs are reviewed. Pt manasa receive last dose of antibiotics today for the UTI. Patient was seen and examined by me personally. I have directly supervised and reviewed documentation by the team resident and agree with its findings. ------- Plan of care was discussed with the attending, Dr. Maury Finch, PGY-2 Documentation for date of: 09/11/25 Subjective Subjective Interval history: NAEO. VSS. Pt was sitting in bedside chair, reports continued abdominal pain which responds to current PO pain regimen. Eats food that family brings from home, but only able to eat a little bit at a time. Exam Vital Signs Temp Pulse Resp BP Pulse Ox O2 Del Method 97.7 F 67 18 111/64 97 Room Air 09/11/25 04:00 09/11/25 05:53 09/11/25 04:00 09/11/25 05:53 09/11/25 04:00 09/11/25 04:00 Narrative Exam General: frail, pleasant female, appears chronically ill, No acute distress Eye: PERRL, EOMI, normal conjunctiva, no scleral icterus HENT: Normocephalic, atraumatic, normal hearing, dry oral mucosa Neck: Supple, non-tender, no JVD, no lymphadenopathy Lungs: Clear to auscultation bilaterally, non-labored respirations, symmetric chest rise, no use of accessory muscles Heart: Normal S1 and S2, no S3 or S4 appreciated. Normal rate and regular rhythm, no murmurs, rubs gallops, or edema. Peripheral pulses intact bilaterally, capillary refill brisk distally Abdomen: Lower abdomen TTP; transverse surgical scar which is completely closed with some surrounding erythema but no purulent drainage, no dehiscence. ileostomy bag in place draining brown liquid leaking some liquid small bowel contents Musculoskeletal: Normal range of motion and strength, no tenderness or swelling Skin: Skin is warm, dry, no rashes or lesions. Neurologic: Alert, awake and oriented x3. CN II-XII grossly intact. No focal neuro deficits. No signs of meningeal irritation noted. Psychiatric: Cooperative, appropriate mood and affect Objective Labs 09/12/25 05:42 09/12/25 05:42 Labs: Laboratory Results - last 24 hr 09/11/25 05:41 WBC 6.5 RBC 3.44 L Hgb 10.3 L Hct 30.4 L MCV 88 MCH 29.9 MCHC 33.9 RDW Std Deviation 46.5 H Plt Count 251 D Neut % (Auto) 56 Lymph % (Auto) 30 [place] % (Auto) 8 Eos % (Auto) 5 Baso % (Auto) 1 Neut # (Auto) 3.6 Lymph # (Auto) 2.0 [place] # (Auto) 0.5 Eos # (Auto) 0.3 Baso # (Auto) 0.0 Immature Gran # (Auto) 0.03 H Absolute Nucleated RBC 0.00 Immature Gran % 1 H Nucleated RBC % 0 Sodium 134 L Potassium 4.2 Chloride 105 Carbon Dioxide 19.6 L Anion Gap 9 BUN 14 Creatinine 0.5 L Estim Creat Clear Calc 68.4 eGFR > 60 BUN/Creatinine Ratio 28 H Glucose 117 H Calculated Osmolality 269 L Calcium 9.1 Corrected Calcium 9.6 Phosphorus 3.1 Magnesium 1.6 Total Bilirubin < 0.2 L AST 26 ALT 13 Alkaline Phosphatase 169 H Total Protein 6.1 Albumin 3.4 Globulin 2.7 Albumin/Globulin Ratio 1.3 Quality Measures Quality Measures VTE prophylaxis Advance care planning discussed with:: patient Assessment & Plan Assessment Current Active Medications: Generic Name Dose Route Start Last Admin Trade Name Freq PRN Reason Stop Dose Admin Acetaminophen 650 mg 09/10/25 10:28 Acetaminophen 325 Mg Tablet PO 10/10/25 10:26 PRN PRN abdominal pain Artificial Tears 0 drop 09/09/25 16:07 09/09/25 17:08 Artificial Tears 225 Drop/15 Ml Btl BOTH EYES 10/09/25 16:06 2 drop PRN PRN Administration eye irritation, itchiness Ciprofloxacin 500 mg 09/09/25 21:00 09/10/25 21:42 Ciprofloxacin Hcl 250 Mg Tablet PO 09/16/25 20:59 500 mg BID SHAWNA Administration Dextrose 25 ml 09/09/25 16:16 Dextrose 50%-Water Inj 50 Ml Syringe IV 10/09/25 16:15 Q15MIN PRN BG 50-70 responsive npo pt Dextrose 50 ml 09/09/25 16:16 Dextrose 50%-Water Inj 50 Ml Syringe IV 10/09/25 16:15 Q15MIN PRN BG <50 OR BG <70 & pt unresponsive Dronabinol 2.5 mg 09/09/25 17:00 09/10/25 17:51 Dronabinol 2.5 Mg Capsule PO 10/09/25 16:59 2.5 mg BIDAC SHAWNA Administration Glucagon 1 mg 09/09/25 16:16 Glucagon Inj 1 Mg Vial IM Q15MIN PRN BG <70, and no IV access Hydromorphone HCl 2 mg 09/09/25 09:10 09/11/25 03:43 Hydromorphone Hcl 2 Mg Tablet PO 09/14/25 09:09 2 mg Q4HR PRN Administration pain 5-10 Fat Emulsion Intravenous 500 mls @ 32 mls/hr 09/10/25 18:00 09/10/25 17:50 Intralipid 20% Iv IV 10/10/25 17:59 32 mls/hr [email or web address] SHAWNA Administration Potassium Phosphate 15 mmol/ 2,005 mls @ 75 mls/hr 09/10/25 18:00 09/10/25 17:50 Amino Acids/Electrolytes/ IV 09/11/25 17:59 75 mls/hr Dextrose Q24H SHAWNA Administration Insulin Human Lispro 0 unit 09/09/25 18:00 09/11/25 05:52 Insulin Lispro (Admelog) 1 Unit/0.01 Ml Unit SC 10/09/25 17:59 Not Given Q6HR [facility] Protocol Midodrine 10 mg 09/04/25 11:00 09/11/25 05:53 Midodrine 5 Mg Tablet PO 10/04/25 10:59 Not Given TID SHAWNA Nystatin 0 gm 09/06/25 21:00 09/10/25 21:42 Nystatin Pwd 15 Gm Btl TOP 10/06/25 20:59 1 applicatio BID SHAWNA Administration Ondansetron HCl 4 mg 09/06/25 10:53 09/07/25 13:03 Ondansetron Inj 2 Mg/Ml Inj 2 Ml IVP 10/06/25 10:52 4 mg Q6HR PRN Administration NAUSEA OR VOMITING Protocol Pantoprazole Sodium 40 mg 09/07/25 09:00 09/10/25 09:10 Pantoprazole 40 Mg Tablet PO 10/07/25 08:59 40 mg QDAY SHAWNA Administration Pharmacy Consult 1 each 09/09/25 15:27 Pha To Consult Parenteral Nutr 1 Each Each XX 10/09/25 15:26 PRN PRN CONSULT Thiamine HCl 100 mg 09/11/25 09:00 Thiamine Inj 100 Mg/Ml Vial 2 Ml IVP 10/11/25 08:59 QDAY [facility] Plan Ms. Washington is a 65-year-old woman past medical history of invasive adenocarcinoma of the ascending colon s/p ex lap right hemicolectomy and ileotransverse anastomosis on 07/21 and an ex lap on 08/11 with resection of small bowel 2/2 multiple perforations and takedown of anastomosis and severe adhesions to the abdominal wall with diverting ileostomy. s/p TPN weaning at [facility] facility and resolution of L abdomen wound, previously with wound vac, pending placement with adequate ostomy wound care capabilities. pending wound care recs. 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 #high-output ileostomy Pt has had significant weight loss in the last 30 days. Pt has lost approximately 20kg since initial hospital admission in July There is concern for continuos weight loss despite oral intake. Pt is not meeting daily nutritional requirement. Per plant sprayer, patient is only getting ~1200 calories per day, goal at least 1500 calories/day. Patient needs added nutrients with calorie goal going of [id number] therefore recommended TPN. Plan: - Dietitian consulted, appreciate recs - Currently on PPN. BG q6h, Lispro SSI q6h - Ensure with meals (4 times daily) - Dronabinol 2.5 mg PO BID - Consulted GI, for further recommendations. May attempt to place the PEG tube for nutrition support, pending family decision - IR most likely not available until Saturday. Will start PPN 09/10 through peripheral line for now with goal to put in PICC line 09/13 and start TPN same day #Nonanion gap metabolic acidosis 08/11: 05/09/39/185. Bicarb 19.6. AG WNL Most likely 2/2 GI losses Plan: - Bicitra x1 - Pending repeat ABG, BMP - Pending lactic acid, BHB #UTI, Enterobacter aerogenes Has foul smelling urine, urinary frequency and dysuria UA 09/03 +LE, 8 WBC, 3+ bacteria Repeat UA 09/07 1+ protein, +nitrite, +LE, 1+ bilirubin, 10 RBC, 224 WBC, 7 squamous epithelial cells s/p Phenazopyridine 200 mg PO TID x6 doses Plan: - Cefepime 1 g BID IV (09/05-09/09) - Ciprofloxacin 500 mg PO BID (09/09-09/11) - Bladder scan q6h -- straight cath if >300 cc in bladder #Subacute illiostomy leak #Multiple small bowel lacerations s/p ex lap and resection of small bowl with anastomosis and diverting ileostomy 08/11 #Abdominal abscess s/p IR drainage 08/10 #Pelvic abscess s/p IR drainage 08/09 #Invasive adenocarcinoma of ascending colon s/p R hemicolectomy with ilio transverse anastomosis 07/21 CTAP with no current abdominal or pelvic abscess, mild free fluid in the abdomen CBC with nl wbc, no c/f active infection Per Dr. Suggs, no indication for surgery at this time Plan: - wound care consulted - plan to discharge to snf or other facility that can provide adequate ostomy wound care and TPN Pain mgmt: - Dilaudid 2mg PO q4hr PRN - APAP 650 po q6hr scheduled #Electrolyte abnormalities #Moderate Hypovolemic Hypotonic Hyponatremia - improving #Hyperphosphatemia - resolved #Hypercalcemia - resolved Na 127-129, serum osm 262 , eGFR 42-60, not on thiazides, no edema or ascites, asymptomatic Urine Na <10, K high (73), Cl <20 TSH high (5.23), T4 WNL (1.66) Given 50 mL bolus hypertonic saline x1 09/06 and IV maintenance fluids given Plan: - encourage PO intake - Pending urine osm - CTM with daily BMP #STEPH - resolved Cr uptrending, BUN/Cr 23 Baseline Cr 0.9 Likely prerenal s/p IVF Improved with IVF Plan: - Encourage PO intake - CTM with daily BMP #Normocytic anemia - stable Likely 2/2 chronic disease of adenocarcinoma. Denies melena, hematochezia or hematemasis. s/p 2 pRBC during surgery Hgb stable Plan: - CTM with daily CBC #Hypotension Plan - Midodrine 10 mg TID #Chronic elevated Alk phos Improved with IVF Plan: - CTM Checklist Dispo: Pending PICC for TPN +/- PEG Diet: mech 2 dysphagia, and ensures Bowel Reg: not indicated, has ostomy VTE ppx: scd GI ppx: protonix 40 PO daily Code status: FULL Plan discussed with Dr. Richy Finch and Dr. Maury Short MD PGy1 Attending Provider Attestation/Addendum I have seen and examined the patient. I was physically present for the [place] portions of the services provided including history, physical exam, diagnosis, treatment plans and orders. I agree with assessment and plan of care as documented by residents. Even though this this note was carefully revised there may still be minor errors in tool machine set up operator due to voice recognition software. Logan Mendiola MD
[2025-09-11] MEDS: CIPROFLOXACIN HCL 250 MG TABLET 500 MG PO ×2 (10:01→21:17)
[2025-09-11] MEDS: PANTOPRAZOLE 40 MG TABLET PO (10:01)
[2025-09-11] MEDS: THIAMINE INJ 100 MG/ML VIAL 2 ML IVP (10:02)
[2025-09-11] MEDS: NYSTATIN PWD 15 GM BTL TOP ×2 (10:05→21:33)
[2025-09-11] MEDS: CITRIC ACID/SODIUM CITR 15 ML UDC (BICITRA) 30 ML PO (12:31)
[2025-09-11 13:01] LABS: Lactate (Lactic Acid) 2.4 mMol/L (0.4-2.0)
[2025-09-11 13:04] LABS: Beta Hydroxybutyrate 0.1 mmol/L (<0.6)
[2025-09-11 13:34] LABS: Base Excess, Venous -5 (-3-3); O2 Saturation, Venous 66 % (96-97); PCO2, Venous 37 mmHg (36-56); PO2, Venous 34 mmHg (15-58); pH, Venous 7.34 (7.33-7.66)
[2025-09-11 13:51] LABS: Anion Gap 9 (7-16); BUN/Creatinine Ratio 27 Ratio (12-20); Blood Urea Nitrogen 16 mg/dL (9-23); Calcium 9.6 mg/dL (8.3-10.6); Carbon Dioxide 19.0 mMol/L (20.0-31.0); Chloride 106 mMol/L (98-107); Creatinine (Component) 0.6 mg/dL (0.6-1.3); Estimated Creatinine Clearance 57.0 mL/min (>60); Glucose 122 mg/dL (74-106); Osmolality,Calculated 270 (275-295); Potassium 4.5 mMol/L (3.4-5.1); Sodium 134 mMol/L (136-145); eGFR > 60 See Note
[2025-09-11 15:59] LABS: Reflex Lactate? Y
[2025-09-11 16:33] LABS: Lactic Acid, 3 HR 1.8 mMol/L (0.4-2.0)
--- NOTE | 2025-09-11 18:08 | PD.IMPROG ---
Documentation for date of: 09/11/25 Subjective Subjective Interval history: Presented different options to the patient for enteral hyperalimentation Family is in discussion Exam Vital Signs Temp Pulse Resp BP Pulse Ox O2 Del Method 97.3 F 91 18 96/67 93 L Room Air 09/11/25 16:00 09/11/25 16:00 09/11/25 16:00 09/11/25 16:00 09/11/25 16:00 09/11/25 16:00 Objective Labs 09/11/25 05:41 09/11/25 12:42 Labs: Laboratory Results - last 24 hr 09/11/25 09/11/25 09/11/25 05:41 12:42 16:22 WBC 6.5 RBC 3.44 L Hgb 10.3 L Hct 30.4 L MCV 88 MCH 29.9 MCHC 33.9 RDW Std Deviation 46.5 H Plt Count 251 D Neut % (Auto) 56 Lymph % (Auto) 30 [place] % (Auto) 8 Eos % (Auto) 5 Baso % (Auto) 1 Neut # (Auto) 3.6 Lymph # (Auto) 2.0 [place] # (Auto) 0.5 Eos # (Auto) 0.3 Baso # (Auto) 0.0 Immature Gran # (Auto) 0.03 H Absolute Nucleated RBC 0.00 Immature Gran % 1 H Nucleated RBC % 0 VBG pH 7.34 VBG pCO2 37 VBG pO2 34 VBG O2 Sat ([place]) 66 L VBG Base Excess -5 L Sodium 134 L 134 L Potassium 4.2 4.5 Chloride 105 106 Carbon Dioxide 19.6 L 19.0 L Anion Gap 9 9 BUN 14 16 Creatinine 0.5 L 0.6 Estim Creat Clear Calc 68.4 57.0 L eGFR > 60 > 60 BUN/Creatinine Ratio 28 H 27 H Glucose 117 H 122 H Calculated Osmolality 269 L 270 L Lactic Acid 2.4 H 1.8 Calcium 9.1 9.6 Corrected Calcium 9.6 Phosphorus 3.1 Magnesium 1.6 Total Bilirubin < 0.2 L AST 26 ALT 13 Alkaline Phosphatase 169 H Total Protein 6.1 Albumin 3.4 Globulin 2.7 Albumin/Globulin Ratio 1.3 Beta-Hydroxybutyrate/Acetoacetate 0.1 Impressions Impression: Failure to thrive Will speak with the family again for the optimal option the patient uses ABG Interpretation ABG results: 09/11/25 12:42 VBG pH 7.34 VBG pCO2 37 VBG pO2 34 VBG Base Excess -5 L Assessment & Plan A&P Narrative # Failure to thrive will discuss with the family in detail As to the advantages versus disadvantages of placement of a gastrostomy tube and the risks involved with that including perforation of the viscus during placement of a PEG tube Once they make a decision We will definitely attempt to place the PEG tube for nutrition support The technical problems going to be there is a leaking ileostomy in the same region with a bag on it patient is current discussed with her family and I will have another discussion tomorrow and then in due course of time if the family agrees we can definitely attempt to place the PEG tube but this could be successful or not that can be only found if the procedure is attempted, it is not complete without challenge Other medical problems include Adenocarcinoma obstructing Requiring a right hemicolectomy with ileotransverse anastomosis later on small bowel resection and ileostomy Thank you very much for the opportunity to participate in the care of this patient Time Spent With Patient Time: Total time spent is greater than 50% in coordination of care (as documented) at patient's floor/unit and/or counseling patient:
[2025-09-11] MEDS: AMINO ACID 4.25%/D5W E 2,000 ML 75 ML IV (18:09)
--- NOTE | 2025-09-11 19:58 | PD.EVENT ---
Documentation for date of: 09/11/25 Event Note Event Note: I had asked the patient to bring food from home and have washed it papaya and [place] she ate the whole thing My recommendation is to taper off the TPN patient can survive on the home food along with supplemental Ensure no need for a PEG placement
[2025-09-11] MEDS: MELATONIN 3 MG TABLET PO (23:23)
[2025-09-12] VITALS (10 sets, daily range): BP systolic 98–113; BP diastolic 58–73; PULSE 50–91; RESP 16–19; TEMP 36.1–36.6; O2SAT 94–98
[2025-09-12 06:17] LABS: Basophils # (Auto) 0.1 Thou/mm3 (0.0-0.2); Basophils % (Auto) 1 % (0-2.5); Eosinophils # (Auto) 0.4 Thou/mm3 (0.0-0.5); Eosinophils % (Auto) 6 % (0-10); Hematocrit 31.9 % (36.0-46.0); Hemoglobin 10.6 g/dL (12.0-16.0); Immature Granulocytes Auto 0.04 Thou/mm3 (0.00-0.00); Lymphocytes # (Auto) 2.2 Thou/mm3 (1.0-4.8); Lymphocytes % (Auto) 29 % (10-50); Mean Corpuscular HGB Conc 33.2 g/dl (31.0-37.0); Mean Corpuscular Hemoglobin 29.8 pg (25.0-35.0); Mean Corpuscular Volume 90 fL (80-100); Monocytes # (Auto) 0.5 Thou/mm3 (0.0-0.8); Monocytes % (Auto) 7 % (0-12); Neutrophils # (Auto) 4.2 Thou/mm3 (1.8-7.7); Neutrophils % (Auto) 57 % (37-80); Nucleated Red Blood Cell # 0.00 Thou/mm3 (0.00-0.00); Nucleated Red Blood Cell % 0 /100 WBC (0); Platelet Count 242 Thou/mm3 (140-440); RDW Standard Deviation 47.2 fL (36.4-46.3); Red Blood Count 3.56 Miln/mm3 (4.00-5.20); White Blood Count 7.5 Thou/mm3 (3.6-11.0)
[2025-09-12 06:40] LABS: Alanine Aminotransferase 10 U/L (10-49); Albumin, Serum 3.5 gm/dL (3.4-4.8); Albumin/Globulin Ratio 1.2 (1.2-2.2); Alkaline Phosphatase 156 U/L (46-116); Anion Gap 9 (7-16); Aspartate Amino Transferase 16 U/L (0-34); BUN/Creatinine Ratio 36 Ratio (12-20); Bilirubin,Total 0.2 mg/dL (0.3-1.2); Blood Urea Nitrogen 18 mg/dL (9-23); Calcium 9.5 mg/dL (8.3-10.6); Calcium (Corrected) 9.9 mg/dL (8.5-10.1); Carbon Dioxide 21.1 mMol/L (20.0-31.0); Chloride 106 mMol/L (98-107); Creatinine (Component) 0.5 mg/dL (0.6-1.3); Estimated Creatinine Clearance 68.4 mL/min (>60); Globulin 2.9 gm/dL (2.3-3.5); Glucose 112 mg/dL (74-106); Magnesium 1.6 mg/dL (1.6-2.6); Osmolality,Calculated 274 (275-295); Phosphorous 3.7 mg/dL (2.4-5.1); Potassium 4.7 mMol/L (3.4-5.1); Sodium 136 mMol/L (136-145); Total Protein 6.4 gm/dL (5.7-8.2); eGFR > 60 See Note
--- NOTE | 2025-09-12 08:06 | PC.SS ---
Late Note: Rounding, Dr. Mc believes pt is canidate for peg tube, to have conversation with family to determine if they are ok with plan. SS to remain available for any additional needs. Peg tube placement will help with SNF placement barrier.
[2025-09-12] MEDS: NYSTATIN PWD 15 GM BTL TOP (08:46)
[2025-09-12] MEDS: PANTOPRAZOLE 40 MG TABLET PO (08:46)
[2025-09-12] MEDS: THIAMINE INJ 100 MG/ML VIAL 2 ML IVP (08:47)
--- NOTE | 2025-09-12 08:49 | PD.RESPRO ---
Documentation for date of: 09/12/25 Exam Vital Signs Temp Pulse Resp BP Pulse Ox O2 Del Method 97.6 F 67 19 113/64 98 Room Air 09/12/25 08:00 09/12/25 08:00 09/12/25 08:00 09/12/25 08:00 09/12/25 08:00 09/12/25 08:00 Narrative Exam General: frail, pleasant female, appears chronically ill, No acute distress Eye: PERRL, EOMI, normal conjunctiva, no scleral icterus HENT: Normocephalic, atraumatic, normal hearing, dry oral mucosa Neck: Supple, non-tender, no JVD, no lymphadenopathy Lungs: Clear to auscultation bilaterally, non-labored respirations, symmetric chest rise, no use of accessory muscles Heart: Normal S1 and S2, no S3 or S4 appreciated. Normal rate and regular rhythm, no murmurs, rubs gallops, or edema. Peripheral pulses intact bilaterally, capillary refill brisk distally Abdomen: Lower abdomen TTP; transverse surgical scar which is completely closed with some surrounding erythema but no purulent drainage, no dehiscence. ileostomy bag in place draining brown liquid leaking some liquid small bowel contents Musculoskeletal: Normal range of motion and strength, no tenderness or swelling Skin: Skin is warm, dry, no rashes or lesions. Neurologic: Alert, awake and oriented x3. CN II-XII grossly intact. No focal neuro deficits. No signs of meningeal irritation noted. Psychiatric: Cooperative, appropriate mood and affect Objective Labs 09/12/25 05:42 09/12/25 05:42 Labs: Laboratory Results - last 24 hr 09/11/25 09/11/25 09/12/25 12:42 16:22 05:42 WBC 7.5 RBC 3.56 L Hgb 10.6 L Hct 31.9 L MCV 90 MCH 29.8 MCHC 33.2 RDW Std Deviation 47.2 H Plt Count 242 Neut % (Auto) 57 Lymph % (Auto) 29 [place] % (Auto) 7 Eos % (Auto) 6 Baso % (Auto) 1 Neut # (Auto) 4.2 Lymph # (Auto) 2.2 [place] # (Auto) 0.5 Eos # (Auto) 0.4 Baso # (Auto) 0.1 Immature Gran # (Auto) 0.04 H Absolute Nucleated RBC 0.00 Immature Gran % 1 H Nucleated RBC % 0 VBG pH 7.34 VBG pCO2 37 VBG pO2 34 VBG O2 Sat ([place]) 66 L VBG Base Excess -5 L Sodium 134 L 136 Potassium 4.5 4.7 Chloride 106 106 Carbon Dioxide 19.0 L 21.1 Anion Gap 9 9 BUN 16 18 Creatinine 0.6 0.5 L Estim Creat Clear Calc 57.0 L 68.4 eGFR > 60 > 60 BUN/Creatinine Ratio 27 H 36 H Glucose 122 H 112 H Calculated Osmolality 270 L 274 L Lactic Acid 2.4 H 1.8 Calcium 9.6 9.5 Corrected Calcium 9.9 Phosphorus 3.7 Magnesium 1.6 Total Bilirubin 0.2 L AST 16 ALT 10 Alkaline Phosphatase 156 H Total Protein 6.4 Albumin 3.5 Globulin 2.9 Albumin/Globulin Ratio 1.2 Beta-Hydroxybutyrate/Acetoacetate 0.1 ABG Interpretation ABG results: 09/11/25 12:42 VBG pH 7.34 VBG pCO2 37 VBG pO2 34 VBG Base Excess -5 L Quality Measures Quality Measures VTE prophylaxis Assessment & Plan Assessment Current Active Medications: Generic Name Dose Route Start Last Admin Trade Name Freq PRN Reason Stop Dose Admin Acetaminophen 650 mg 09/10/25 10:28 Acetaminophen 325 Mg Tablet PO 10/10/25 10:26 PRN PRN abdominal pain Artificial Tears 0 drop 09/09/25 16:07 09/09/25 17:08 Artificial Tears 225 Drop/15 Ml Btl BOTH EYES 10/09/25 16:06 2 drop PRN PRN Administration eye irritation, itchiness Dextrose 25 ml 09/09/25 16:16 Dextrose 50%-Water Inj 50 Ml Syringe IV 10/09/25 16:15 Q15MIN PRN BG 50-70 responsive npo pt Dextrose 50 ml 09/09/25 16:16 Dextrose 50%-Water Inj 50 Ml Syringe IV 10/09/25 16:15 Q15MIN PRN BG <50 OR BG <70 & pt unresponsive Dronabinol 2.5 mg 09/09/25 17:00 09/12/25 08:46 Dronabinol 2.5 Mg Capsule PO 10/09/25 16:59 2.5 mg BIDAC SHAWNA Administration Glucagon 1 mg 09/09/25 16:16 Glucagon Inj 1 Mg Vial IM Q15MIN PRN BG <70, and no IV access Hydromorphone HCl 2 mg 09/09/25 09:10 09/11/25 10:01 Hydromorphone Hcl 2 Mg Tablet PO 09/14/25 09:09 2 mg Q4HR PRN Administration pain 5-10 Fat Emulsion Intravenous 500 mls @ 32 mls/hr 09/10/25 18:00 09/10/25 17:50 Intralipid 20% Iv IV 10/10/25 17:59 32 mls/hr [email or web address] SHAWNA Administration Amino Acids/Electrolytes/Dextrose 2,000 mls @ 75 mls/hr 09/11/25 18:00 09/11/25 18:09 Clinimix E 4.25/5 IV 09/12/25 17:59 75 mls/hr Q24H SHAWNA Administration Insulin Human Lispro 0 unit 09/09/25 18:00 09/12/25 05:43 Insulin Lispro (Admelog) 1 Unit/0.01 Ml Unit SC 10/09/25 17:59 Not Given Q6HR SHAWNA Protocol Midodrine 10 mg 09/04/25 11:00 09/12/25 05:45 Midodrine 5 Mg Tablet PO 10/04/25 10:59 Not Given TID SHAWNA Nystatin 0 gm 09/06/25 21:00 09/12/25 08:46 Nystatin Pwd 15 Gm Btl TOP 10/06/25 20:59 1 applicatio BID SHAWNA Administration Ondansetron HCl 4 mg 09/06/25 10:53 09/07/25 13:03 Ondansetron Inj 2 Mg/Ml Inj 2 Ml IVP 10/06/25 10:52 4 mg Q6HR PRN Administration NAUSEA OR VOMITING Protocol Pantoprazole Sodium 40 mg 09/07/25 09:00 09/12/25 08:46 Pantoprazole 40 Mg Tablet PO 10/07/25 08:59 40 mg QDAY SHAWNA Administration Pharmacy Consult 1 each 09/09/25 15:27 Pha To Consult Parenteral Nutr 1 Each Each XX 10/09/25 15:26 PRN PRN CONSULT Thiamine HCl 100 mg 09/11/25 09:00 09/12/25 08:47 Thiamine Inj 100 Mg/Ml Vial 2 Ml IVP 10/11/25 08:59 100 mg QDAY SHAWNA Administration Plan Ms. Washington is a 65-year-old woman past medical history of invasive adenocarcinoma of the ascending colon s/p ex lap right hemicolectomy and ileotransverse anastomosis on 07/21 and an ex lap on 08/11 with resection of small bowel 2/2 multiple perforations and takedown of anastomosis and severe adhesions to the abdominal wall with diverting ileostomy. s/p TPN weaning at [facility] facility and resolution of L abdomen wound, previously with wound vac, pending placement with adequate ostomy wound care capabilities. pending wound care recs. 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 #high-output ileostomy Pt has had significant weight loss in the last 30 days. Pt has lost approximately 20kg since initial hospital admission in July There is concern for continuos weight loss despite oral intake. Pt is not meeting daily nutritional requirement. Per perioperative educator, patient is only getting ~1200 calories per day, goal at least 1500 calories/day. Patient needs added nutrients with calorie goal going of [id number] therefore recommended TPN. Plan: - Dietitian consulted, appreciate recs - Currently on PPN. BG q6h, Lispro SSI q6h - Ensure with meals (4 times daily) - Dronabinol 2.5 mg PO BID - Consulted GI, for further recommendations. May attempt to place the PEG tube for nutrition support, pending family decision - IR most likely not available until Saturday. Will start PPN 09/10 through peripheral line for now with goal to put in PICC line 09/13 and start TPN same day #Nonanion gap metabolic acidosis 08/11: 05/09/39/185. Bicarb 19.6. AG WNL Most likely 2/2 GI losses Plan: - Bicitra x1 - Pending repeat ABG, BMP - Pending lactic acid, BHB #UTI, Enterobacter aerogenes Has foul smelling urine, urinary frequency and dysuria UA 09/03 +LE, 8 WBC, 3+ bacteria Repeat UA 09/07 1+ protein, +nitrite, +LE, 1+ bilirubin, 10 RBC, 224 WBC, 7 squamous epithelial cells s/p Phenazopyridine 200 mg PO TID x6 doses Plan: - Cefepime 1 g BID IV (09/05-09/09) - Ciprofloxacin 500 mg PO BID (09/09-09/11) - Bladder scan q6h -- straight cath if >300 cc in bladder #Subacute illiostomy leak #Multiple small bowel lacerations s/p ex lap and resection of small bowl with anastomosis and diverting ileostomy 08/11 #Abdominal abscess s/p IR drainage 08/10 #Pelvic abscess s/p IR drainage 08/09 #Invasive adenocarcinoma of ascending colon s/p R hemicolectomy with ilio transverse anastomosis 07/21 CTAP with no current abdominal or pelvic abscess, mild free fluid in the abdomen CBC with nl wbc, no c/f active infection Per Dr. Suggs, no indication for surgery at this time Plan: - wound care consulted - plan to discharge to snf or other facility that can provide adequate ostomy wound care and TPN Pain mgmt: - Dilaudid 2mg PO q4hr PRN - APAP 650 po q6hr scheduled #Electrolyte abnormalities #Moderate Hypovolemic Hypotonic Hyponatremia - improving #Hyperphosphatemia - resolved #Hypercalcemia - resolved Na 127-129, serum osm 262 , eGFR 42-60, not on thiazides, no edema or ascites, asymptomatic Urine Na <10, K high (73), Cl <20 TSH high (5.23), T4 WNL (1.66) Given 50 mL bolus hypertonic saline x1 09/06 and IV maintenance fluids given Plan: - encourage PO intake - Pending urine osm - CTM with daily BMP #STEPH - resolved Cr uptrending, BUN/Cr 23 Baseline Cr 0.9 Likely prerenal s/p IVF Improved with IVF Plan: - Encourage PO intake - CTM with daily BMP #Normocytic anemia - stable Likely 2/2 chronic disease of adenocarcinoma. Denies melena, hematochezia or hematemasis. s/p 2 pRBC during surgery Hgb stable Plan: - CTM with daily CBC #Hypotension Plan - Midodrine 10 mg TID #Chronic elevated Alk phos Improved with IVF Plan: - CTM Checklist Dispo: Pending PICC for TPN +/- PEG Diet: mech 2 dysphagia, and ensures Bowel Reg: not indicated, has ostomy VTE ppx: scd GI ppx: protonix 40 PO daily Code status: FULL Plan discussed Dr. Maury Short MD PGy1
--- NOTE | 2025-09-12 09:03 | ESDS_ITS ---
Planned Discharge Date 09/12/25 DS: Providers Provider Date of admission: 09/04/25 06:17 Primary care physician: Physician No Primary/Family Admitting Provider: Paramjit Haddad MD Attending Provider on Admission: Logan Mendiola MD Consults: 09/04/25 05:18 Referral Infection Control Routine Comment: Reason for Infection Control Referral: Admitted with Diarrhea Readmitted within 30 days Recent Surgical Wound Health Equity Referral - Knowledge Deficit Routine Comment: Positive screening for knowledge deficit needs. Health Equity Referral - Transportation Routine Comment: Positive screening for transportation needs. 09/04/25 05:19 Referral Registered Dietitian Routine Comment: Referral Wound Care Routine Comment: IASD abdomen, stage 2 pressure injuusy coccyx 09/08/25 10:44 Referral Physical Therapy Routine Comment: Physician Instructions: 09/10/25 16:28 Consult to Gastroenterology Routine Comment: recommendations on PEG tube with loparamide vs.TPN Consulting Provider: Gay Mc Attending Provider on DC: Dr. Mendiola Discharging Provider: Christa Short MD DS: Diagnosis Problem List Completed Was Problem List Reviewed/Reconciled?: Yes Hospital Course Hospital Course Hospital course: Hospital Course Ms Felix Aguirre is a 65 year old woman with history of invasive adenocarcinoma of the ascending colon s/p ex lap right hemicolectomy and ileotransverse anastomosis on 07/21 and an ex lap on 08/11 with resection of small bowel 2/2 multiple lacerations and takedown of anastomosis with diverting ileostomy. who was recently discharged from [facility] on 08/23 to LT with wound vac and Picc line for continued tpn. At that time her pain was managed with po meds dilaudid and apap. Per pt family, she was able to wean of the TPN and tolerate oral diet. Her Right sided abdominal wound that had wound vac had healed, and no longer requires wound vac. The ileostomy was being managed at the LTAC but once the patient met discharge criteria for the [facility], she was discharged to home. The patient and family felt grossly incapable of managing the leaking ostomy and so they presented to the ED in [facility], who were possibly concerned about a small intrabdominal collection of fluid on ctap. patient left [facility] and represented to the [facility] ED on 09/04. In the ED, VSS. Labs were grossly unremarkable, hgb stable hgb 11, elevated phos and chronically elevated alk phos. CT a/p showed no signs of intraabdominal abscess. Gen surgery (Dr. Lan) was consulted, reported no indication for surgical intervention at that time. Wound care was consulted for management of ostomy leakage. Pain was managed with Dilaudid PO and Tylenol PO. While patient was awaiting SNF placement, she developed Enterobacter aerogenes UTI, treated with Azo and IV Cefepime (09/05-09/09), then transitioned to PO Ciprofloxacin 500 mg PO BID (09/09-09/11) with resolution of dysuria and foul smelling urine. Patient also developed hypovolemic hypotonic hyponatremia and STEPH. This was resolved with gentle IV fluid resuscitation. Patient has lost weight over the course of her several hospitalizations, which raised the concern for calorie/protein malnutrition i/s/o short bowel syndrome vs high output ileostomy. Discussion was had with patient and patient's family regarding starting TPN vs PEG tube placement, and GI was consulted. PPN was started on 09/10 with the goal to transition to TPN once PICC line could be placed by IR. However, it was noted that patient was able to eat the food her family brought from home in addition to her Ensures with each meal. Her appetite also increased with Dronabinol. PPN was tapered off and discontinued 09/12, and patient was deemed medical cleared for discharge. Patient is tolerating PO intake, abdominal pain managed with PO pain regimen, and ileostomy bag was no longer leaking as it was attentively managed by wound care throughout hospitalization. Patient hemodynamically stable. Labs reviewed and stable. Patient stable and medically cleared for discharge to [facility]. Diagnoses #Subacute illiostomy leak #Multiple small bowel lacerations s/p ex lap and resection of small bowl with anastomosis and diverting ileostomy 08/11 #Abdominal abscess s/p IR drainage 08/10 #Pelvic abscess s/p IR drainage 08/09 #Invasive adenocarcinoma of ascending colon s/p R hemicolectomy with ilio transverse anastomosis 07/21 #Calorie protein Malnutrition #Short bowel syndrome vs. #high-output ileostomy #Nonanion gap metabolic acidosis - resolved #UTI, Enterobacter aerogenes - resolved #Electrolyte abnormalities #Moderate Hypovolemic Hypotonic Hyponatremia - improving #Hyperphosphatemia - resolved #Hypercalcemia - resolved #STEPH - resolved #Normocytic anemia - stable #Hypotension #Chronic elevated Alk phos Discharge Instructions -Follow up with your PCP within 1 week and repeat renal panel within 1 week. -Wound care: 1) Maceration with blanchable redness over coccyx/gluteal cleft: cleanse with soap and water, pat dry. Apply nystatin powder and secure with allyven dressing BID. 2) Surgical incision over right lateral abdomen: gently cleanse with NS, pat dry, Apply nystatin powder and smooth out over affected area than layer with calcium alginate (alginate may stick in skin fold without cover dressing, if it does not stay please apply small cover dressing) BID and PRN 3) Ileostomy to LUQ, change weekly and PRN: * Supplies: [employer] 3/ Flexwear Lock N Roll, Covex Ostomy Barrier Oval Ring * Convetac Stomahesive Paste * Convatec Adhesive Remover [place] * Cut 2 pouch wafer system to 35mm oval. Warm wafer and convex stoma ring in warm blankets until needed. Set up suction to help catch ileostomy drainage while prepping skin. Keep patient flat during application. * Remove old pouching system and cleanse skin around stoma using adhesive remove r spray until all old crustings is clean. Cleanse skin with soap and water to remove slippery adhesive spray and pat dry. * Apply stoma paste or adhesive ring to any crevasse or skin folds around stoma, allow to stay open to air for a few minutes while it becomes tacky. * Apply warmed convex stoma ring to the wafer so the rounded part will touch the skin and apply to clean dry skin. Gently hold with light pressure while rubbing to help keep adherence than apply collection bag. Seal drainage velcro. - Follow up with [employer] to help with ileostomy supplies. Call [phone] Christa Short MD PGY1 Time Spent with Patient Time attestation: Total time spent providing and/or coordinating discharge services: 38 minutes Time spent: Greater than 30 minutes Exam Vital Signs Temp Pulse Resp BP Pulse Ox O2 Del Method 97.6 F 67 19 113/64 98 Room Air 09/12/25 08:00 09/12/25 08:00 09/12/25 08:00 09/12/25 08:00 09/12/25 08:00 09/12/25 08:00 Narrative Exam General: frail, pleasant female, appears chronically ill, No acute distress Eye: PERRL, EOMI, normal conjunctiva, no scleral icterus HENT: Normocephalic, atraumatic, normal hearing, dry oral mucosa Neck: Supple, non-tender, no JVD, no lymphadenopathy Lungs: Clear to auscultation bilaterally, non-labored respirations, symmetric chest rise, no use of accessory muscles Heart: Normal S1 and S2, no S3 or S4 appreciated. Normal rate and regular rhythm, no murmurs, rubs gallops, or edema. Peripheral pulses intact bilaterally, capillary refill brisk distally Abdomen: Lower abdomen TTP; transverse surgical scar which is completely closed with some surrounding erythema but no purulent drainage, no dehiscence. ileostomy bag in place draining brown liquid leaking some liquid small bowel contents Musculoskeletal: Normal range of motion and strength, no tenderness or swelling Skin: Skin is warm, dry, no rashes or lesions. Neurologic: Alert, awake and oriented x3. CN II-XII grossly intact. No focal neuro deficits. No signs of meningeal irritation noted. Psychiatric: Cooperative, appropriate mood and affect Discharge Plan Plan Patient Disposition: Xfer Skilled Nsg Fac (SNF) Disposition Comment: [facility] Patient condition on transfer: Stable Care Plan Goals: -Follow up with your PCP within 1 week and repeat renal panel within 1 week. -Wound care: 1) Maceration with blanchable redness over coccyx/gluteal cleft: cleanse with soap and water, pat dry. Apply nystatin powder and secure with allyven dressing BID. 2) Surgical incision over right lateral abdomen: gently cleanse with NS, pat dry, Apply nystatin powder and smooth out over affected area than layer with calcium alginate (alginate may stick in skin fold without cover dressing, if it does not stay please apply small cover dressing) BID and PRN 3) Ileostomy to LUQ, change weekly and PRN: * Supplies: [employer] 2 3/4 Flexwear Lock N Roll, Covex Ostomy Barrier Oval Ring * Convetac Stomahesive Paste * Convatec Adhesive Remover [place] * Cut 2 pouch wafer system to 35mm oval. Warm wafer and convex stoma ring in warm blankets until needed. Set up suction to help catch ileostomy drainage while prepping skin. Keep patient flat during application. * Remove old pouching system and cleanse skin around stoma using adhesive remover spray until all old crustings is clean. Cleanse skin with soap and water to remove slippery adhesive spray and pat dry. * Apply stoma paste or adhesive ring to any crevasse or skin folds around stoma, allow to stay open to air for a few minutes while it becomes tacky. * Apply warmed convex stoma ring to the wafer so the rounded part will touch the skin and apply to clean dry skin. Gently hold with light pressure while rubbing to help keep adherence than apply collection bag. Seal drainage velcr o. - Follow up with [employer] to help with ileostomy supplies. Call [phone] Prescriptions/Referrals Prescriptions/Med Rec: New dronabinol 2.5 mg Capsule 2.5 mg PO BIDAC 30 Days Qty: 60 0RF Continued multivitamin Tablet 1 tab PO QDAY Qty: 30 0RF acetaminophen 325 mg capsule 650 mg PO Q6H PRN (Reason: pain(scale 1-6)) famotidine 20 mg Tablet 20 mg PO QDAY Qty: 30 0RF folic acid 1 mg tablet 1 mg PO QDAY thiamine HCl (vitamin B1) 100 mg tablet 100 mg PO QDAY cyanocobalamin (vitamin B-12) [Vitamin B-12] 250 mcg tablet 250 mcg PO QDAY Rx Instructions: 0.25mg zinc sulfate 220 mg capsule 220 mg PO DAILY cholecalciferol (vitamin D3) 25 mcg (1,000 unit) tablet 25 mcg PO QDAY sennosides [senna] 8.6 mg tablet 8.6 mg PO QDAY sodium chloride 1 gram tablet 1,000 mg PO BID hydromorphone [Dilaudid] 2 mg tablet 4 mg PO Q4H PRN (Reason: pain) Rx Instructions: pain scale 4-10 Discontinued senna 8.6 mg capsule 8.6 mg PO QDAY Qty: 30 0RF thiamine HCl (vitamin B1) 100 mg capsule 100 mg PO QDAY Qty: 30 0RF hydromorphone [Dilaudid] 2 mg tablet 2 mg PO Q4H MDD 6 PRN (Reason: pain 4-10) Qty: 30 0RF Intralipid 20 % emulsion 250 ml IV QDAY Patient Comments: pt never started it(never got it at home). Rx Instructions: (soybean oil). by ivpb route every MWF 08:00am. 250ml ivpb x2(500ml) amino acids 5% with 20% Dextrose IV Referrals: No Primary/Family,Physician [Primary Care Provider] Outpatient Orders (i.e. Home Health, Labs, Imaging): Renal Function Panel (Routine) Location: None Selected Ordered By: Heidi Finch Patient/Caregiver Discharge Instructions Print Language: German Stand Alone Forms: Brittani Award Info., Patient Portal Info Letter Discharge Order Discharge Orders: Discharge (Routine); Ordered 09/12/25 Ordered By: Heidi Finch Quality Discharge Quality Measures VTE prophylaxis MD Attestestation MD Attestation I have seen and examined the patient. I was physically present for the [place] portions of the services provided including history, physical exam, diagnosis, treatment plans and orders. I agree with assessment and plan of care as documented by residents. Even though this this note was carefully revised there may still be minor errors in chain saw driver due to voice recognition software. Logan Mendiola MD
[2025-09-12] MEDS: Magnesium Sulfate 4 GM Ivpb 4 GM/50 ML BAG IV (09:48)
--- NOTE | 2025-09-12 10:24 | PC.SS ---
Addendum entered by Venecia Richards 09/12/25 13:27: Perla from [facility] stated pt is clear to DC to their facility if we can provde a few days of supplies for wound/ostomy. SS reached out to RNBrandie who was on lunch but Cammy KNIGHT answered on her behalf. SS updated Cammy on plan. Team is tapering off TPN, likely DC later afternoon. Original Note: SS was informed by Dr. Finch that pt will not need TPN, nor a Peg tube. Dr. Mc seen pt yesterday at bedside. They wish to DC pt later this afternoon to [facility]. SS reached out to Perla at [facility], who requested documentation supporting updates. Perla also requested wound care notes and instructions so they can make sure they are prepared for pt treatment. All requested information sent via [employer] to [facility]. Pending response.
[2025-09-12] MEDS: HYDROMORPHONE HCL 2 MG TABLET PO (11:28)
[2025-09-12] MEDS: MIDODRINE 5 MG TABLET 10 MG PO (13:23)
--- NOTE | 2025-09-12 13:30 | PC.SS ---
ROWENA MICAH# [phone] file exchanged to [facility]
--- NOTE | 2025-09-12 15:27 | PC.SS ---
SS was informed by Team C- pt is clear for DC> SS contacted pt DM Dionisio Samuel [phone], to update him and confirm DC plan to [facility]. SS explained transport process through [employer] and ETA estimate for a around 1900 (3-4hr window), Dionisio was not pleased about time. SS inquired due to pt being able to sit in a chair if there is family able to transport pt. Per Dionisio that sounds better and he will attempt to arrange for his brother to medicinal plant picker pt. SS informed Dionisio SS is off at 430 so if he can call SS back by 415 to update on plan that will be appreciated. SS on stand by for transportation needs.
--- NOTE | 2025-09-12 16:05 | PC.NURSE ---
Report given to Luis at [facility] in [place]
--- NOTE | 2025-09-12 17:41 | ESPR_ITS ---
Documentation for date of: 09/12/25 Subjective Subjective Interval history: Patient evaluated In the discharge planning process No need for any outpatient or home TPN Patient can fairly eat her home-cooked food and small meals Exam Vital Signs Temp Pulse Resp BP Pulse Ox O2 Del Method 97.1 F 75 18 106/67 98 Room Air 09/12/25 11:54 09/12/25 13:23 09/12/25 11:54 09/12/25 13:23 09/12/25 11:54 09/12/25 11:54 Objective Labs 09/12/25 05:42 09/12/25 05:42 Labs: Laboratory Results - last 24 hr 09/12/25 05:42 WBC 7.5 RBC 3.56 L Hgb 10.6 L Hct 31.9 L MCV 90 MCH 29.8 MCHC 33.2 RDW Std Deviation 47.2 H Plt Count 242 Neut % (Auto) 57 Lymph % (Auto) 29 Whitley % (Auto) 7 Eos % (Auto) 6 Baso % (Auto) 1 Neut # (Auto) 4.2 Lymph # (Auto) 2.2 [place]ley # (Auto) 0.5 Eos # (Auto) 0.4 Baso # (Auto) 0.1 Immature Gran # (Auto) 0.04 H Absolute Nucleated RBC 0.00 Immature Gran % 1 H Nucleated RBC % 0 Sodium 136 Potassium 4.7 Chloride 106 Carbon Dioxide 21.1 Anion Gap 9 BUN 18 Creatinine 0.5 L Estim Creat Clear Calc 68.4 eGFR > 60 BUN/Creatinine Ratio 36 H Glucose 112 H Calculated Osmolality 274 L Calcium 9.5 Corrected Calcium 9.9 Phosphorus 3.7 Magnesium 1.6 Total Bilirubin 0.2 L AST 16 ALT 10 Alkaline Phosphatase 156 H Total Protein 6.4 Albumin 3.5 Globulin 2.9 Albumin/Globulin Ratio 1.2 Impressions Impression: Failure to thrive Okay to discharge patient home without the TPN and on home for nutrition along with Ensure No need for GI follow-up ABG Interpretation ABG results: 09/11/25 12:42 VBG pH 7.34 VBG pCO2 37 VBG pO2 34 VBG Base Excess -5 L Assessment & Plan A&P Narrative # Failure to thrive will discuss with the family in detail As to the advantages versus disadvantages of placement of a gastrostomy tube and the risks involved with that including perforation of the viscus during placement of a PEG tube Once they make a decision We will definitely attempt to place the PEG tube for nutrition support The technical problems going to be there is a leaking ileostomy in the same region with a bag on it patient is current discussed with her family and I will have another discussion tomorrow and then in due course of time if the family agrees we can definitely attempt to place the PEG tube but this could be successful or not that can be only found if the procedure is attempted, it is not complete without challenge Other medical problems include Adenocarcinoma obstructing Requiring a right hemicolectomy with ileotransverse anastomosis later on small bowel resection and ileostomy Thank you very much for the opportunity to participate in the care of this patient Time Spent With Patient Time: Total time spent is greater than 50% in coordination of care (as documented) at patient's floor/unit and/or counseling patient:
[2025-09-14 07:07] LABS: Osmolality, Urine* 401 mOsm/kg (50-1200)
== END 2025-09-12 18:06 | disposition skilled nursing facility (03) | DRG 394 ==
PROVIDERS: Admitting Provider Student in an Organized Health Care Education/Training Program; Visit Provider Student in an Organized Health Care Education/Training Program
DX: K94.13 Enterostomy malfunction (principal); E46 Unspecified protein-calorie malnutrition; N39.0 Urinary tract infection, site not specified; E87.1 Hypo-osmolality and hyponatremia; E87.20 Acidosis, unspecified; N17.9 Acute kidney failure, unspecified; K90.829 Short bowel syndrome, unspecified; D63.0 Anemia in neoplastic disease; E83.52 Hypercalcemia; E86.1 Hypovolemia; I95.9 Hypotension, unspecified; E83.39 Other disorders of phosphorus metabolism; Z85.038 Personal history of other malignant neoplasm of large intestine; R62.7 Adult failure to thrive; Z75.1 Person awaiting admission to adequate facility elsewhere; Z79.899 Other long term (current) drug therapy; Z90.49 Acquired absence of other specified parts of digestive tract
CPT/HCPCS: 36415; 80048; 80053; 80069; 81001; 82010; 82436; 82803; 83605; 83735; 83935; 84100; 84133; 84295; 84300; 84439; 84443; 84484; 85025; 85610; 85730; 87081; 87086; 93005; 97162; J0692; J2405; J3411; J3475; J3490; J7030; J7050; J7131; Q0167; A9270

== ENCOUNTER 2025-09-21 11:43 | Inpatient (IN) | payer MEDICARE, MEDICAID, SELFPAY ==
[2025-09-21] VITALS (10 sets, daily range): BP systolic 84–119; BP diastolic 64–88; PULSE 80–110; RESP 16–27; TEMP 36.3–36.8; O2SAT 97–100; BMI 18.8
--- NOTE | 2025-09-21 12:45 | PD.EDDIZZY ---
ED Dizzyness RME/HPI General Chief Complaint: General Adult/Misc Complain Stated Complaint: ABN LABS Time Seen by Provider: 09/21/25 12:30 Arrival date/time: 09/21/25 11:43 RME / HPI RME / HPI Narrative: 65 year old female with history of diabetes, presents to the ED BIB[facility] from [facility] for evaluation of abnormal labs today. Per medics, NH reported low sodium (118) and elevated potassium (6.0). In the ED, she complains of global weakness and dizziness. Related Data Home Medications ?Medication ?Instructions ?Recorded ?Confirmed acetaminophen 325 mg capsule 650 mg PO Q6H PRN pain(scale 1-6) 08/09/25 09/04/25 cholecalciferol (vitamin D3) 25 25 mcg PO QDAY 09/04/25 09/04/25 mcg (1,000 unit) tablet cyanocobalamin (vitamin B-12) 250 250 mcg PO QDAY 09/04/25 09/04/25 mcg tablet (Vitamin B-12) folic acid 1 mg tablet 1 mg PO QDAY 09/04/25 09/04/25 hydromorphone 2 mg tablet 4 mg PO Q4H PRN pain 09/04/25 09/04/25 (Dilaudid) sennosides 8.6 mg tablet (senna) 8.6 mg PO QDAY 09/04/25 09/04/25 sodium chloride 1 gram tablet 1,000 mg PO BID 09/04/25 09/04/25 thiamine HCl (vitamin B1) 100 mg 100 mg PO QDAY 09/04/25 09/04/25 tablet zinc sulfate 220 mg capsule 220 mg PO DAILY 09/04/25 09/04/25 Previous Rx's ?Medication ?Instructions ?Recorded multivitamin 1 tab PO QDAY #30 tabs 08/05/25 famotidine 20 mg tablet 20 mg PO QDAY #30 tabs 08/20/25 dronabinol 2.5 mg capsule 2.5 mg PO BIDAC 30 days #60 caps 09/12/25 Allergies Allergy/AdvReac Type Severity Reaction Status Date / Time No Known Allergies Allergy Verified 09/21/25 11:55 Review of Systems Review of Systems Systems Reviewed: All systems reviewed, normal except as documented Past Medical History Past Medical History CARDIAC: Positive Hypertension GASTROINTESTINAL: Positive Gastrointestinal Disorders and Diverticulosis OTHER HISTORY: Positive Blood Transfusions and Cancer (colon) Family History FAMILY HISTORY: Positive Family Cancer Surgical History SURGICAL: Positive Abdominal Surgery (07/21/25 exp. lap R hemicolectomy and ileotransverse colostomy) and Bowel Surgery Social History SMOKING STATUS: Never smoker SECOND HAND EXPOSURE: No SUBSTANCE USE: does not use ED Exam Narrative Physical exam: Generally patient is alert chronically ill-appearing but no obvious distress, heart regular rate and rhythm, lungs clear to auscultation equal bilaterally, abdomen is soft slightly distended and tympanic but nontender with ileostomy in place with output. Neurologic exam shows patient have a [place] Coma Scale of 15 without focal motor deficit, skin is warm pale and dry Course Quality Measures none Orders Category Date Time Status Certified Physician Assistant STAT Care 09/21/25 12:18 Active Insert IV STAT Care 09/21/25 12:17 Completed NPO STAT Care 09/21/25 12:17 Active CBC Stat Lab 09/21/25 12:28 Completed Comprehensive Metabolic Panel Stat Lab 09/21/25 12:28 Completed Lipase Stat Lab 09/21/25 12:28 Completed Magnesium Stat Lab 09/21/25 12:28 Completed ALBUTEROL RT 0.5ml [Proventil Rt 0.5ml] Med 09/21/25 13:58 Discontinued 10 mg INH X1 ONE Calcium Gluc/Ns 1000MG Ivpb [Calcium Gluc/Ns 1000mg Med 09/21/25 13:58 Ordered Ivpb] 1,000 mg in 50 ml IV X1 Dextrose 50% Syr [D50w Syringe Abboject] Med 09/21/25 13:58 Discontinued 50 ml IVP X1 ONE Insulin Regular Med 09/21/25 13:58 Discontinued 5 unit IV X1 ONE Sodium Chloride 0.9% 1000 ml [Ns] 1,000 ml Med 09/21/25 13:58 Active IV 999 mls/hr Sodium Chloride Rt Dania 0.9% [NS Rt Dania 0.9%] Med 09/21/25 13:58 Active 3 ml INH PRN PRN Vital Signs Vital signs: Vital Signs Temperature 97.4 F 09/21/25 11:45 Pulse Rate 87 09/21/25 11:45 Respiratory Rate 18 09/21/25 11:45 Blood Pressure 119/88 H 09/21/25 11:45 Pulse Oximetry (%) 99 09/21/25 11:45 Oxygen Delivery Method Room Air 09/21/25 11:45 Pulse ox is 99% on room air which is adequate. Dizziness MDM Narrative MDM Narrative:: I, Geneva Patterson, am scribing for and in the presence of Dr. Montalvo. I interpreted all labs. Patient has new onset acute renal failure with hyperkalemia. Creatinine is 3.6 with a BUN of 63. Creatinine has never been above 1.9 in the past. Potassium is elevated at 5.7 nonhemolyzed. There are peaked T waves on the EKG but no QRS widening and no bradycardia. Patient will receive 1000 mg of calcium gluconate IV, 1 amp of D50 IV, 5 units of regular insulin IV and 10 mg of continuous nebulized albuterol all for the hyperkalemia. Patient's sodium is 117. Patient was hydrated with 1 L of IV normal saline. I discussed this case with the hospitalist and the patient will require admission to the hospital for further treatment and evaluation. Patient data External records reviewed:: [facility] previous records, EMS form and [facility] (I reviewed pmhx and medication list [facility] ) Clinical information provided by:: patient Social determinants that could affect healthcare access:: housing ([place] resident ) Patient has the following chronic illnesses:: None How is presenting disease/condition affected by chronic disease/condition?: exacerbated by Evaluation data The following diagnostics were reviewed and interpreted by me:: lab results Lab and/or radiology exams considered but not ordered:: None Interpretation Summary: None Medications / Prescriptions Medications or Prescriptions considered but not ordered:: None Medication administrations:: Medication Administration History Sodium Chloride (Ns) 1,000 mls @ 999 mls/hr IV .Q1H1M ONE Stop: 09/21/25 14:58 Calcium Gluconate/Sodium Chloride (Calcium Gluc/Ns 1000mg Ivpb) 1,000 mg in 50 mls @ 50 mls/hr IV X1 ONE Stop: 09/21/25 14:57 Sodium Chloride (Sodium Chloride Rt Dania 0.9% 3 Ml Nebu) 3 ml INH PRN PRN PRN Reason: SOLN Stop: 10/21/25 13:57 Discontinued Medications Albuterol (Albuterol Rt 2.5 Mg/0.5 Ml Nebu) 10 mg INH X1 ONE Stop: 09/21/25 13:59 Dextrose (Dextrose 50%-Water Inj 50 Ml Syringe) 50 ml IVP X1 ONE Stop: 09/21/25 13:59 Insulin Human Regular (Insulin Hum Regular 1 Unit/0.01 Ml (Per Unit)) 5 unit IV X1 ONE Stop: 09/21/25 13:59 None Consultations Consultation(s) initiated? (list below): Yes Diagnosis Most likely diagnosis given after review of the tests above:: Acute renal failure Admission Indicated Admission indicated?: indicated Admission Request Was there a request for admission?: Yes Admission Attestation Admission request attestation: Discussed case with [] from Hospitalist service regarding admission. Discussed patients ED course, exam findings, labs, and radiology results. The Hospitalist [agrees,declines] to accept the patient for admission. Disposition Plan Disposition Plan: Admit Critical Care Time Critical Care Time Critical Care Time: Yes Total Critical Care Time (min.): 35 Attestation: Excluding other billable procedures Discharge Plan Plan Patient Disposition: Admit Acute Care w/in Hospital Prescriptions/Referrals Prescriptions/Med Rec: No Action multivitamin Tablet 1 tab PO QDAY Qty: 30 0RF acetaminophen 325 mg capsule 650 mg PO Q6H PRN (Reason: pain(scale 1-6)) famotidine 20 mg Tablet 20 mg PO QDAY Qty: 30 0RF folic acid 1 mg tablet 1 mg PO QDAY thiamine HCl (vitamin B1) 100 mg tablet 100 mg PO QDAY cyanocobalamin (vitamin B-12) [Vitamin B-12] 250 mcg tablet 250 mcg PO QDAY Rx Instructions: 0.25mg zinc sulfate 220 mg capsule 220 mg PO DAILY cholecalciferol (vitamin D3) 25 mcg (1,000 unit) tablet 25 mcg PO QDAY sennosides [senna] 8.6 mg tablet 8.6 mg PO QDAY sodium chloride 1 gram tablet 1,000 mg PO BID hydromorphone [Dilaudid] 2 mg tablet 4 mg PO Q4H PRN (Reason: pain) Rx Instructions: pain scale 4-10 dronabinol 2.5 mg Capsule 2.5 mg PO BIDAC 30 Days Qty: 60 0RF Referrals: Ary Short FNP ([facility]) [Primary Care Provider] - In 1 week Problem List Clinical Impression: Acute renal failure, Acute hyperkalemia, Acute hyponatremia Patient/Caregiver Discharge Instructions Print Language: Kosovan Stand Alone Forms: Brittani Award Info., Patient Portal Info Letter
[2025-09-21 13:03] LABS: Basophils # (Auto) 0.1 Thou/mm3 (0.0-0.2); Basophils % (Auto) 1 % (0-2.5); Eosinophils # (Auto) 0.1 Thou/mm3 (0.0-0.5); Eosinophils % (Auto) 2 % (0-10); Hematocrit 40.9 % (36.0-46.0); Hemoglobin 14.5 g/dL (12.0-16.0); Immature Granulocytes Auto 0.11 Thou/mm3 (0.00-0.00); Lymphocytes # (Auto) 1.7 Thou/mm3 (1.0-4.8); Lymphocytes % (Auto) 18 % (10-50); Mean Corpuscular HGB Conc 35.5 g/dl (31.0-37.0); Mean Corpuscular Hemoglobin 29.1 pg (25.0-35.0); Mean Corpuscular Volume 82 fL (80-100); Monocytes # (Auto) 0.8 Thou/mm3 (0.0-0.8); Monocytes % (Auto) 8 % (0-12); Neutrophils # (Auto) 6.8 Thou/mm3 (1.8-7.7); Neutrophils % (Auto) 71 % (37-80); Nucleated Red Blood Cell # 0.00 Thou/mm3 (0.00-0.00); Nucleated Red Blood Cell % 0 /100 WBC (0); Platelet Count 473 Thou/mm3 (140-440); RDW Standard Deviation 40.7 fL (36.4-46.3); Red Blood Count 4.99 Miln/mm3 (4.00-5.20); White Blood Count 9.6 Thou/mm3 (3.6-11.0)
[2025-09-21 13:43] LABS: Alanine Aminotransferase 100 U/L (10-49); Albumin, Serum 4.8 gm/dL (3.4-4.8); Albumin/Globulin Ratio 1.1 (1.2-2.2); Alkaline Phosphatase 361 U/L (46-116); Anion Gap 14 (7-16); Aspartate Amino Transferase 103 U/L (0-34); BUN/Creatinine Ratio 18 Ratio (12-20); Bilirubin,Total 0.6 mg/dL (0.3-1.2); Blood Urea Nitrogen 63 mg/dL (9-23); Calcium 10.3 mg/dL (8.3-10.6); Calcium (Corrected) 10.3 mg/dL (8.5-10.1); Carbon Dioxide 20.8 mMol/L (20.0-31.0); Chloride 82 mMol/L (98-107); Creatinine (Component) 3.5 mg/dL (0.6-1.3); Estimated Creatinine Clearance 11.5 mL/min (>60); Globulin 4.5 gm/dL (2.3-3.5); Glucose 153 mg/dL (74-106); Lipase 64 U/L (12-53); Magnesium 1.6 mg/dL (1.6-2.6); Osmolality,Calculated 257 (275-295); Potassium 5.7 mMol/L (3.4-5.1); Total Protein 9.3 gm/dL (5.7-8.2); eGFR 14 See Note
[2025-09-21 13:46] LABS: Sodium 117 mMol/L (136-145)
--- NOTE | 2025-09-21 14:10 | PC.NURSE ---
Called RT for neb. tx.
[2025-09-21] MEDS: ALBUTEROL RT 2.5 MG/0.5 ML NEBU 10 MG INH (14:20)
[2025-09-21] MEDS: SODIUM CHLORIDE 0.9% 1000 ML 1,000 ML 999 ML IV (14:23)
[2025-09-21] MEDS: CALCIUM GLUC/NS 1000MG IVPB 1,000 MG/50 ML BAG 50 MG IV (14:24)
[2025-09-21] MEDS: INSULIN HUM REGULAR 1 UNIT/0.01 ML (PER UNIT) 5 UNIT IV (14:27)
[2025-09-21] MEDS: DEXTROSE 50%-WATER INJ 50 ML SYRINGE IVP (14:28)
--- NOTE | 2025-09-21 14:49 | ESHP_ITS ---
<Statement entered by Jonathan Purvis MD - 09/22/25 07:36> Patient was examined and case was reviewed with team including attending physician. Note reviewed, I agree with most of its contents and agree with the patient's care as documented by Dr. Persaud 65 y/o F with PMHx of prediabetes and invasive adenocarcinoma of the ascending colon s/p right hemicolectomy with ileotransverse colostomy on 07/21/25 presented from SNF for abnormal lab findings. She had labs drawn up about a day ago went to her PCP found her to have hyperkelemia and hyponatremia and was sent to the ED. At the time of evaluation patient is asymptomatic eating with good appetite. Denies shortness of breath, chest pain, N/V/D, abdominal pain, changes in urinary or bowel habits. Given her surgical history i suspect possible short bowel syndrome causing these electrolyte abnormalities. She will be admitted to telemetry given the severe hyponatremia and hyperkalemia with noted peaked T- waves on EKG. She will be given hyperkalemia cocktail and will have repeat renal panel to monitor improvement. If no improvement will provide another hyperkalemia cocktail. In regards to her sodium which is aroun 117 will give NS fluids and monitor Na q4 hours to monitor over correction. Nephrology was consulted as well. Case discussed with my attending Dr. Maury Purvis MD PGY-2 Documentation for date of: 09/21/25 HPI History of Present Illness Chief complaint: Hyperkalemia History of present illness: Mrs. Washington is a Mosotho speaking, 65F with history of prediabetes and invasive adenocarcinoma of the ascending colon s/p right hemicolectomy with ileotransverse colostomy on 07/21/25 presented from SNF for abnormal lab findings of hyperkelemia and hyponatremia. Patient was asymptomatic, denies nausea, vomiting, heart palpitation, chest pain, or shortness of breathe, however, does endorse weakness on arrival to the ED. She was about to start her physical therapy session at her SNF when she was referred urgently to the ER for low sodium of 118 and elevated potassium of 6.0. Upon chart review, it was noted patient to have extensive intra-abdominal surgical history with complications s/p right hemocolectomy on 07/21/25. This patient was admitted for hyperkalemia and hyponatremia. ED Course In the ED, vital signs stable. Na 117, K 5.7 nonhemolyzed, bicarb 18, anion gap 17, BUN 52, Creatinine 3.6. Glucose 137. Albumin 4.1. EKG revealed peaked T waves with no QRS widening. She was given 1000 mg of calcium gluconate IV, 1 amp of D50 IV, 5 units of regular insulin IV and 10 mg of continuous nebulized albuterol for the hyperkalemia. Patient was hydrated with 1 L of IV normal saline. ROS * Constitutional: NAD, a/o x 3 * GI: Denies nausea, vomiting. * CV: Denies chest pain or palpitations. * Resp: Denies shortness of breathe * : Denies dysuria, CVA tenderness, suprapubic tenderness. * Neuro: Denies dizziness, no focal deficits. Past Medical History * Prediabetes, unknown A1C * invasive adenocarcinoma of ascending colon s/p right hemicolectomy * Multiple intra-abdominal abscess with leakage of small bowel contents * Abdominal abscess s/p IR drainage 08/10/25 * Pelvic abscess s/p IR drainage 08/09/25 Social History * Lives at [facility] * No drug/alcohol/smoke use Surgical History * Exploratory laparotomy and right hemicolectomy and ilio transverse colostomy (07/21/25) * Explored laparotomy and resection of the small bowel and takedown of the anastomosis and diverting ileostomy (08/11/25) Allergies * NKDA Home Meds * Dilaudid 4mg PRN Q4H PRN * Ondasetron 4mg PO Q8H PRN * Multivitamin * Mirtazapine 15mg PO QD. * Folic Acid PO QD * Vitamin D3 25mcg PO QD * Vitamin B12 250mcg PO QD Exam Vital Signs Temp Pulse Resp BP Pulse Ox O2 Del Method 97.7 F 93 20 112/88 H 99 Room Air 09/21/25 14:19 09/21/25 14:24 09/21/25 14:24 09/21/25 14:19 09/21/25 14:24 09/21/25 14:19 Narrative Exam General: Awake and in no acute distress. A/O x 3. HEENT: Normocephalic, atraumatic Heart: Regular rate, peaked T wave on EKG. Lungs: Clear to auscultation with no wheezing or crackles. Abdomen: Soft, nondistended, nontender. No guarding or rebound tenderness. T ransverse surgical scar with no purulent drainage, no dehiscence. Ileostomy bag in place draining loose yellow small bowel contents Neurologic: Alert and oriented x3, no gross neurological deficit, and patient able to move all 4 extremities. Extremities: loss of muscle tone. Skin: Dry, clean, intact. No ecchymosis. Results: Labs 09/22/25 04:38 09/22/25 12:56 Labs: Short CBC 09/21/25 Range/Units 12:28 WBC 9.6 (3.6-11.0) Thou/mm3 Hgb 14.5 (12.0-16.0) g/dL Hct 40.9 (36.0-46.0) % Plt Count 473 H D (140-440) Thou/mm3 BMP 09/21/25 12:28 Sodium 117 L* Potassium 5.7 H Chloride 82 L Carbon Dioxide 20.8 BUN 63 H Creatinine 3.5 H Glucose 153 H Calcium 10.3 Liver Function 09/21/25 Range/Units 12:28 Total Bilirubin 0.6 (0.3-1.2) mg/dL AST 103 H (0-34) U/L ALT 100 H (10-49) U/L Alkaline Phosphatase 361 H (46-116) U/L Albumin 4.8 (3.4-4.8) gm/dL Quality Measures Quality Measures VTE prophylaxis Advance care planning discussed with:: patient Medications Home Medications and Allergies Home Medications ?Medication ?Instructions ?Recorded ?Confirmed ?Type acetaminophen 325 mg capsule 650 mg PO Q6H PRN pain(sc madelin 1-6) 08/09/25 09/21/25 History cholecalciferol (vitamin D3) 25 25 mcg PO QDAY 5 09/21/25 History mcg (1,000 unit) tablet cyanocobalamin (vitamin B-12) 250 250 mcg PO QDAY 08/1509/21/25 History mcg tablet (Vitamin B-12) folic acid 1 mg tablet 1 mg PO QDAY 09/04/25 History hydromorphone 2 mg tablet 2 mg PO Q4H PRN pain 4-10 09/21/25 History (Dilaudid) sennosides 8.6 mg tablet (senna) 8.6 mg PO QDAY 09/21/25 History sodium chloride 1 gram tablet 1,000 mg PO BID 09/04/25 09/21/25 History thiamine HCl (vitamin B1) 100 mg 100 mg PO QDAY 09/21/25 History tablet zinc sulfate 220 mg capsule 220 mg PO DAILY 09/04/25 1 11/22/24 History bisacodyl 10 mg rectal suppository 10 mg SD Q84H PRN c onstipation 09/21/25 09/21/25 History (Dulcolax (bisacodyl)) magnesium hydroxide 400 mg/5 mL 400 mg PO Q72H PRN con stipation 09/21/25 09/21/25 History oral suspension (Milk of Magnesia) mirtazapine 15 mg tablet 15 mg PO QDAY Depression 07/0809/21/25 History nystatin 100,000 unit/gram topical 1 applic topical BI D Redness 09/21/25 09/21/25 History powder (Nystop) ondansetron 4 mg disintegrating 4 mg PO Q8H PRN nausea and vomiting 09/21/25 09/21/25 History tablet ophthalmic irrigation solution 2 drp ophthalmic (eye) Q2H PRN 09/21/25 09/21/25 History drops dryness/itchy eyes sodium phosphates 19 gram-7 118 ml SD Q96H PRN constip ation 09/21/25 09/21/25 History gram/118 mL enema (Enema) Allergies Allergy/AdvReac Type Severity Reaction Status Date / Time No Known Allergies Allergy Verified 09/21/25 11:55 Visit Medications Sodium Chloride (Ns) 1,000 mls @ 999 mls/hr IV .Q1H1M ONE Stop: 09/21/25 14:58 Last Admin: 09/21/25 14:23 Dose: 999 mls/hr Calcium Gluconate/Sodium Chloride (Calcium Gluc/Ns 1000mg Ivpb) 1,000 mg in 50 mls @ 50 mls/hr IV X1 ONE Stop: 09/21/25 14:57 Last Admin: 09/21/25 14:24 Dose: 50 mls/hr Sodium Chloride (Sodium Chloride Rt Dania 0.9% 3 Ml Nebu) 3 ml INH PRN PRN PRN Reason: SOLN Stop: 10/21/25 13:57 Discontinued Medications Albuterol (Albuterol Rt 2.5 Mg/0.5 Ml Nebu) 10 mg INH X1 ONE Stop: 09/21/25 13:59 Last Admin: 09/21/25 14:20 Dose: 10 mg Dextrose (Dextrose 50%-Water Inj 50 Ml Syringe) 50 ml IVP X1 ONE Stop: 09/21/25 13:59 Last Admin: 09/21/25 14:28 Dose: 50 ml Insulin Human Regular (Insulin Hum Regular 1 Unit/0.01 Ml (Per Unit)) 5 unit IV X1 ONE Stop: 09/21/25 13:59 Last Admin: 09/21/25 14:27 Dose: 5 unit Assessment & Plan Plan Mrs. Washington is a Mosotho speaking, 65F with history of invasive adenocarcinoma of the ascending colon s/p right hemicolectomy with ileotransverse colostomy on 07/21/25 presented from SNF for hyperkelemia and hyponatremia. #Short gut syndrome #High ileostomy output #Hx of invasive adenocarcinoma of the ascending colon s/p right hemicolectomy with ileotransverse colostomy (07/21/25) #Calorie protein Malnutrition Per prior note, pt has significant weight loss and not meeting daily nutritional requirement. Plan: - Dietitian consulted, appreciate recs - Ensure with meals - Dronabinol 2.5 mg PO BID - May require GI consultation for further recommendations if not meeting nutritional goal #Pre-renal STEPH likely secondary to dehydration from high ileostomy output Initial BUN to [place] ratio > 20. Plan: - nephrology consulted, appreciate recs - fluid resuscitation with NaCl 0.9% @ rate of 75ml/hr, HELD now to avoid rapid correction of Na level. - monitor urine output - daily labs, monitor chemistry - renal dose med, avoid nephrotoxin - avoid contrast or offending mediations #Eletroclyte abnormalities #Hyperkelemia #Hyponatremia #Hyperphosphatemia Consistent with short gut syndrome with STEPH from high ileostomy output Plan: - Careful correction of Na to avoid Osmotic Demyelination Syndrome (ODS) - Hyperkalemic cocktail given in ED (1000 mg of calcium gluconate IV, 1 amp of D50 IV, 5 units of regular insulin IV and 10 mg of continuous nebulized albuterol) - Kayexelate 30gm x 1 (09/21/25) - Na level Q4H for 8 series - Recheck K level in AM, if still elevated, may consider another hyperkelemic cocktail. #Anion gap metabolic acidosis 09/21/25: Bicarb 18, AG 17. BUN 63 Likely secondary to GI losses vs uremia - Pending AM lactic acid - Likely resolve with fluid resuscitation Health maintenance Dispo: pending resolution of STEPH, hyperkelemia, hyponatremia DVT prophylaxis: HEPARIN GI prophylaxis: N/A Antibiotics: N/A Bowel Regimen: N/A Diet: Renal diet, high protein ensure Lines: Peripheral IV. Code status: Full code Case discussed with my senior resident Dr. Delong Case discussed with my attending Dr. Maury Persaud, PGY 1 Attending Provider Attestation/Addendum I have seen and examined the patient. I was physically present for the [place] portions of the services provided including history, physical exam, diagnosis, treatment plans and orders. I agree with assessment and plan of care as documented by residents. After examination of the patient and review of the clinical data I feel that this patient needs admission to the hospital for further treatment/evaluation. Even though this this note was carefully revised there may still be minor errors in supervisor metal placing due to voice recognition software. Logan Mendiola MD
[2025-09-21] MEDS: SOD POLYSTYRENE SULFON SUSP 15 GM/60 ML BTL 30 GM PO (15:43)
[2025-09-21] MEDS: SODIUM CHLORIDE 0.9% 1000 ML 1,000 ML 75 ML IV (15:43)
[2025-09-21 17:59] LABS: Albumin, Serum 4.1 gm/dL (3.4-4.8); Anion Gap 17 (7-16); BUN/Creatinine Ratio 16 Ratio (12-20); Blood Urea Nitrogen 52 mg/dL (9-23); Calcium 9.7 mg/dL (8.3-10.6); Calcium (Corrected) 9.7 mg/dL (8.5-10.1); Carbon Dioxide 18.0 mMol/L (20.0-31.0); Chloride 88 mMol/L (98-107); Creatinine (Component) 3.2 mg/dL (0.6-1.3); Estimated Creatinine Clearance 12.6 mL/min (>60); Glucose 137 mg/dL (74-106); Osmolality,Calculated 263 (275-295); Phosphorous 5.3 mg/dL (2.4-5.1); Potassium 5.3 mMol/L (3.4-5.1); Sodium 123 mMol/L (136-145); eGFR 15 See Note
[2025-09-21] MEDS: DESMOPRESSIN ACET INJ 4 mCg/ML VIAL 10ML 2 MCG IV (20:56)
[2025-09-21] MEDS: HEPARIN SOD INJ 5000 UNIT/ML VIAL SC (20:57)
--- NOTE | 2025-09-21 21:30 | PD.NEPHCONS ---
History of Present Illness Data of Consult Consult date: 09/21/25 Requesting Physician: Logan Mendiola MD Primary Care Provider: ERIBERTO Martinez([facility]) Consult Narrative Reason for consult: Acute renal failure, hyponatremia History of present illness: Informant son at bedside. Chart review done. Patient's son not quite sure on the medical/surgical history. Discharged last month and discharge diagnoses included-- #Subacute illiostomy leak #Multiple small bowel lacerations s/p ex lap and resection of small bowl with anastomosis and diverting ileostomy 08/11 #Abdominal abscess s/p IR drainage 08/10 #Pelvic abscess s/p IR drainage 08/09 #Invasive adenocarcinoma of ascending colon s/p R hemicolectomy with ilio transverse anastomosis 07/21 #Calorie protein Malnutrition #Short bowel syndrome vs. #high-output ileostomy #Nonanion gap metabolic acidosis #UTI, Enterobacter aerogenes #Electrolyte abnormalities #Moderate Hypovolemic Hypotonic Hyponatremia - #Hyperphosphatemia - #Hypercalcemia - #STEPH #Normocytic anemia - #Hypotension #Chronic elevated Alk phos Patient comes back with the same diagnosis of acute renal failure, electrolyte imbalance with high output ileostomy losses. Seen in the emergency department. Sick looking. Home medications included vitamin D, B12, Pepcid, folic acid, Dilaudid, mirtazapine, multivitamin, thiamine, zinc. Blood pressure 103/75, heart rate 110, afebrile CBC normal except platelets 473.Sodium 117, potassium 5.7, bicarbonate 20.8, BUN 63, creatinine 3.5, GFR 14. Also noted 10 days ago her creatinine was 0.5. Calcium 10.3, magnesium 1.6, AST 103, ALT 100, alk phos 361, albumin 4.8, globulin 4.5, lipase 64. Urinalysis shows significant pyuria, urine sodium less than 10 cc:: cc: Logan Mendiola MD Review of Systems Review of Systems Narrative Review of Systems: CONSTITUTIONAL: Complaining of significant fatigue CARDIOVASCULAR: Patient denies any chest pain, shortness of breath, swelling in the lower extremities. PULMONARY: Patient denies any shortness of breath, cough. GASTROINTESTINAL: Complaining of abdominal discomfort from the ileostomy site GENITOURINARY: Patient denies any urinary symptoms of burning or frequency or hematuria, denies any form in the urine. SKIN: Irritation noted around the ileostomy site MUSCULOSKELETAL: Gait imbalance NEUROLOGICAL: Denies any neurological problems of strokes, seizures or confusion. Denies any memory problems. PSYCHIATRIC: admits depression Past Medical History Past Medical History NEUROLOGIC: Negative Neurological Disorders or Seizures CARDIAC: Positive Hypertension; Negative Cardiac Disorders or Congestive Heart Failure RESPIRATORY: Negative Chronic Obstructive Pulmonary Disease (COPD) or Asthma GASTROINTESTINAL: Positive Gastrointestinal Disorders (Adenocarcinoma ascending colon; bowel resection), Diverticulitis and Diverticulosis GENITOURINARY: Negative Renal Disease MUSCULOSKELETAL: Negative Musculoskeletal Disorders ENDOCRINE: Negative Endocrine Disorders, Diabetes Mellitus Type 1 or Diabetes Mellitus Type 2 (Pre-diabetic; diet controlled) HEMATOLOGIC: Negative Sickle Cell Disease OTHER HISTORY: Positive Blood Transfusions and Cancer (Adenocarcinoma ascending colon; bowel resection); Negative Autoimmune Disease, Down Syndrome, Developmental Delay, Falls, Blood Transfusion Reaction or Anesthesia Reactions Family History FAMILY HISTORY: Positive Family Cancer; Negative Family Cardiac Disorders Surgical History SURGICAL: Positive Abdominal Surgery (RT hemicolectomy; small bowel resection; ileostomy), Bowel Surgery and of Shoulder Sx Social History SMOKING STATUS: Never smoker SECOND HAND EXPOSURE: No SUBSTANCE USE: does not use Meds Home Medications and Allergies Home Medications ?Medication ?Instructions ?Recorded ?Confirmed ?Type acetaminophen 325 mg capsule 650 mg PO Q6H PRN pain(scale 1-6) 08/09/25 09/21/25 History cholecalciferol (vitamin D3) 25 25 mcg PO QDAY 09/04/25 09/21/25 History mcg (1,000 unit) tablet cyanocobalamin (vitamin B-12) 250 250 mcg PO QDAY 09/04/25 09/21/25 History mcg tablet (Vitamin B-12) folic acid 1 mg tablet 1 mg PO QDAY 09/04/25 09/21/25 History hydromorphone 2 mg tablet 2 mg PO Q4H PRN pain 4-10 09/04/25 09/21/25 History (Dilaudid) sennosides 8.6 mg tablet (senna) 8.6 mg PO QDAY 09/04/25 09/21/25 History sodium chloride 1 gram tablet 1,000 mg PO BID 09/04/25 09/21/25 History thiamine HCl (vitamin B1) 100 mg 100 mg PO QDAY 09/04/25 09/21/25 History tablet zinc sulfate 220 mg capsule 220 mg PO DAILY 09/04/25 09/21/25 History bisacodyl 10 mg rectal suppository 10 mg UT Q84H PRN constipation 09/21/25 09/21/25 History (Dulcolax (bisacodyl)) magnesium hydroxide 400 mg/5 mL 400 mg PO Q72H PRN constipation 09/21/25 09/21/25 History oral suspension (Milk of Magnesia) mirtazapine 15 mg tablet 15 mg PO QDAY Depression 09/21/25 09/21/25 History nystatin 100,000 unit/gram topical 1 applic topical BID Redness 09/21/25 09/21/25 History powder (Nystop) ondansetron 4 mg disintegrating 4 mg PO Q8H PRN nausea and vomiting 09/21/25 09/21/25 History tablet ophthalmic irrigation solution 2 drp ophthalmic (eye) Q2H PRN 09/21/25 09/21/25 History drops dryness/itchy eyes sodium phosphates 19 gram-7 118 ml UT Q96H PRN constipation 09/21/25 09/21/25 History gram/118 mL enema (Enema) Allergies Allergy/AdvReac Type Severity Reaction Status Date / Time No Known Allergies Allergy Verified 09/21/25 11:55 Exam Vital Signs Temp Pulse Resp BP Pulse Ox O2 Del Method 36.8 C 110 H 17 103/75 100 Room Air 09/21/25 20:00 09/21/25 20:00 09/21/25 20:00 09/21/25 20:00 09/21/25 20:00 09/21/25 20:00 Narrative Exam GENERAL APPEARANCE: Patient currently seen in the emergency department. Son at bedside. Sick looking. Lost weight NECK: Neck supple, no JVD or bruit CARDIOVASCULAR: Heart regular, no murmurs LUNGS/CHEST: Chest clear to auscultation. No rales, rhonchi, wheezing ABDOMEN: Soft, bowel sounds present. She has a diverticulum ileostomy with redness around the ileostomy site. Bag fluid with liquidy stool EXTREMITIES: No edema, clubbing or cyanosis. SKIN: Erythema around the ileostomy site MUSCULOSKELETAL: In bed NEUROLOGICAL : No neurological deficits. Alert and awake Results Labs 09/21/25 12:28 09/21/25 17:25 Labs: Short CBC 09/21/25 Range/Units 12: WBC 9.6 (3.6-11.0) Thou/mm3 Hgb 14.5 (12.0-16.0) g/dL Hct 40.9 (36.0-46.0) % Plt Count 473 H D (140-440) Thou/mm3 BMP 09/21/25 09/21/25 12: 17:25 Sodium 117 L* 123 L Potassium 5.7 H 5.3 H Chloride 82 L 88 L Carbon Dioxide 20.8 18.0 L BUN 63 H 52 H Creatinine 3.5 H 3.2 H Glucose 153 H 137 H Calcium 10.3 9.7 Liver Function 09/21/25 09/21/25 Range/Units 12: 17:25 Total Bilirubin 0.6 (0.3-1.2) mg/dL AST 103 H (0-34) U/L ALT 100 H (10-49) U/L Alkaline Phosphatase 361 H (46-116) U/L Albumin 4.8 4.1 D (3.4-4.8) gm/dL Assessment & Plan Additional Assessment & Plan Additional Plan: # Acute renal failure secondary to prerenal azotemia from high output ileostomy losses. Agree with continuing IV fluids for now. #Multiple small bowel lacerations s/p ex lap and resection of small bowl with anastomosis and diverting ileostomy 08/11 High output ileostomy losses. Leading to electrolyte imbalance #Invasive adenocarcinoma of ascending colon s/p R hemicolectomy with ilio transverse anastomosis 07/21 #Calorie protein Malnutrition #anion gap metabolic acidosis -secondary to prerenal azotemia #Hypovolemic Hypotonic Hyponatremia -continue with normal saline #Hyperphosphatemia - #Hypercalcemia - #Normocytic anemia - #Hypotension #Chronic elevated Alk phos - Will monitor renal function, electrolytes closely. Thank you Logan for allowing me to participate in the care of Ms. Washington
[2025-09-21 21:57] LABS: Sodium 124 mMol/L (136-145)
[2025-09-21] MEDS: DEXTROSE 5%-WATER 1,000 ML 125 ML IV (22:20)
[2025-09-22] VITALS: BP 106/75; PULSE 91; PULSE 92; RESP 17; TEMP 36.8; O2SAT 99
[2025-09-22 01:13] LABS: Potassium 5.1 mMol/L (3.4-5.1); Sodium 123 mMol/L (136-145)
[2025-09-22 04:00] VITALS: BP 92/66; PULSE 91; PULSE 92; RESP 12; TEMP 36.7; O2SAT 99
[2025-09-22 05:05] LABS: Lactate (Lactic Acid) 2.3 mMol/L (0.4-2.0)
[2025-09-22 05:14] LABS: Basophils # (Auto) 0.1 Thou/mm3 (0.0-0.2); Basophils % (Auto) 1 % (0-2.5); Eosinophils # (Auto) 0.2 Thou/mm3 (0.0-0.5); Eosinophils % (Auto) 2 % (0-10); Hematocrit 36.9 % (36.0-46.0); Hemoglobin 13.0 g/dL (12.0-16.0); Immature Granulocytes Auto 0.12 Thou/mm3 (0.00-0.00); Lymphocytes # (Auto) 2.4 Thou/mm3 (1.0-4.8); Lymphocytes % (Auto) 29 % (10-50); Mean Corpuscular HGB Conc 35.2 g/dl (31.0-37.0); Mean Corpuscular Hemoglobin 29.1 pg (25.0-35.0); Mean Corpuscular Volume 83 fL (80-100); Monocytes # (Auto) 0.8 Thou/mm3 (0.0-0.8); Monocytes % (Auto) 9 % (0-12); Neutrophils # (Auto) 4.9 Thou/mm3 (1.8-7.7); Neutrophils % (Auto) 58 % (37-80); Nucleated Red Blood Cell # 0.00 Thou/mm3 (0.00-0.00); Nucleated Red Blood Cell % 0 /100 WBC (0); Platelet Count 407 Thou/mm3 (140-440); RDW Standard Deviation 41.1 fL (36.4-46.3); Red Blood Count 4.47 Miln/mm3 (4.00-5.20); White Blood Count 8.4 Thou/mm3 (3.6-11.0)
[2025-09-22] MEDS: DEXTROSE 5%-WATER 1,000 ML 125 ML IV (05:17)
[2025-09-22 05:34] LABS: Glucose Estimated Average 126 mg/dL (80-131); Hemoglobin A1C 6.0 % Hgb (4.8-6.0)
[2025-09-22 05:36] VITALS: BMI 17.7
[2025-09-22 05:44] LABS: Alanine Aminotransferase 77 U/L (10-49); Albumin, Serum 4.3 gm/dL (3.4-4.8); Albumin/Globulin Ratio 1.2 (1.2-2.2); Alkaline Phosphatase 290 U/L (46-116); Anion Gap 15 (7-16); Aspartate Amino Transferase 64 U/L (0-34); BUN/Creatinine Ratio 19 Ratio (12-20); Bilirubin,Total 0.6 mg/dL (0.3-1.2); Blood Urea Nitrogen 50 mg/dL (9-23); Calcium 9.5 mg/dL (8.3-10.6); Calcium (Corrected) 9.5 mg/dL (8.5-10.1); Carbon Dioxide 18.3 mMol/L (20.0-31.0); Chloride 86 mMol/L (98-107); Creatinine (Component) 2.6 mg/dL (0.6-1.3); Estimated Creatinine Clearance 14.5 mL/min (>60); Globulin 3.7 gm/dL (2.3-3.5); Glucose 158 mg/dL (74-106); Magnesium 1.5 mg/dL (1.6-2.6); Osmolality,Calculated 256 (275-295); Phosphorous 4.8 mg/dL (2.4-5.1); Potassium 4.7 mMol/L (3.4-5.1); Total Protein 8.0 gm/dL (5.7-8.2); eGFR 20 See Note
[2025-09-22 05:47] LABS: Sodium 119 mMol/L (136-145)
[2025-09-22] MEDS: SODIUM CHLORIDE 0.9% 1000 ML 1,000 ML 80 ML IV (06:36)
[2025-09-22 07:59] LABS: Reflex Lactate? Y
[2025-09-22 08:00] VITALS: BP 98/73; PULSE 105; PULSE 95; RESP 16; TEMP 36.4; O2SAT 95
[2025-09-22] MEDS: Magnesium Sulfate 4 GM Ivpb 4 GM/50 ML BAG IV (08:19)
[2025-09-22] MEDS: MIRTAZAPINE 15 MG TABLET PO (08:26)
[2025-09-22] MEDS: FOLIC ACID 1 MG TABLET PO (08:26)
[2025-09-22] MEDS: THIAMINE 100 MG TABLET PO (08:26)
[2025-09-22] MEDS: CITRIC ACID/SODIUM CITR 15 ML UDC (BICITRA) 30 ML PO ×2 (08:53→20:46)
[2025-09-22] MEDS: HEPARIN SOD INJ 5000 UNIT/ML VIAL SC ×2 (08:53→20:45)
--- NOTE | 2025-09-22 09:13 | ESPR_ITS ---
Documentation for date of: 09/22/25 Subjective Subjective Interval history: History of present illness: Patient comes back with the same diagnosis of acute renal failure, electrolyte imbalance with high output ileostomy losses. Seen in the emergency department. Sick looking. Home medications included vitamin D, B12, Pepcid, folic acid, Dilaudid, mirtazapine, multivitamin, thiamine, zinc. Blood pressure 103/75, heart rate 110, afebrile CBC normal except platelets 473.Sodium 117, potassium 5.7, bicarbonate 20.8, BUN 63, creatinine 3.5, GFR 14. Also noted 10 days ago her creatinine was 0.5. Calcium 10.3, magnesium 1.6, AST 103, ALT 100, alk phos 361, albumin 4.8, globulin 4.5, lipase 64. Urinalysis shows significant pyuria, urine sodium less than 10 Patient admitted for hyperkalemia in setting of prerenal STEPH secondary to high ileostomy output. Nephrology consulted for management of hyperkalemia and STEPH. 09/22/25: Patient seen and assessed at bedside. Reports she is feeling better. Overnight, normal saline stopped due to overcorrection of sodium, improved to 123. Dropped back to 119, restart IV NS at 125 mL/h. Goal sodium 125- 127, sodium check q6hr. potassium 4.7, chloride 86, bicarb 18.3, BUN 58, creatinine 2.6, GFR 28. A1c 6.0. Lactic acid 2.3. Calcium 9.5, phosphorus 4.8, magnesium 1.5, repleted. Still has mildly elevated liver enzymes. Started Bicitra due to GI bicarb losses, recommend discharging with sodium bicarb tablets. Exam Vital Signs Temp Pulse Resp BP Pulse Ox O2 Del Method 97.5 F 95 16 98/73 95 Room Air 09/22/25 08:00 09/22/25 08:00 09/22/25 08:00 09/22/25 08:00 09/22/25 08:00 09/22/25 08:00 Narrative Exam Physical Exam General: Awake and in no acute distress. Conversational. Cachectic. HEENT: Patches of hair loss. Normocephalic, atraumatic, mucous membranes moist. Heart: Regular rate and rhythm, normal S1 and S2, no murmurs. Lungs: Clear to auscultation with no wheezing or crackles. Abdomen: Soft, nondistended, nontender, positive bowel sounds. No guarding or rebound tenderness. Diverticulum ileostomy with redness around the ileostomy site. Bag fluid with liquidy stool Neurologic: Alert and oriented x3, no gross neurological deficit, and patient able to move all 4 extremities. Extremities: No edema. Skin: Erythema around ileostomy site. No ecchymoses. Objective Labs 09/26/25 05:23 09/26/25 18:39 Labs: Laboratory Results - last 24 hr 09/21/25 09/21/25 09/21/25 12:28 17:25 21:19 WBC 9.6 RBC 4.99 Hgb 14.5 Hct 40.9 MCV 82 MCH 29.1 MCHC 35.5 RDW Std Deviation 40.7 Plt Count 473 H D Neut % (Auto) 71 Lymph % (Auto) 18 [place] % (Auto) 8 Eos % (Auto) 2 Baso % (Auto) 1 Neut # (Auto) 6.8 Lymph # (Auto) 1.7 [place] # (Auto) 0.8 Eos # (Auto) 0.1 Baso # (Auto) 0.1 Immature Gran # (Auto) 0.11 H Absolute Nucleated RBC 0.00 Immature Gran % 1 H Nucleated RBC % 0 Sodium 117 L* 123 L 124 L Potassium 5.7 H 5.3 H Chloride 82 L 88 L Carbon Dioxide 20.8 18.0 L Anion Gap 14 17 H BUN 63 H 52 H Creatinine 3.5 H 3.2 H Estim Creat Clear Calc 11.5 L 12.6 L eGFR 14 L* 15 L BUN/Creatinine Ratio 18 16 Glucose [address] Glu mg/dL Hemoglobin A1c Calculated Osmolality 257 L 263 L Lactic Acid Calcium 10.3 9.7 Corrected Calcium 10.3 H 9.7 Phosphorus 5.3 H Magnesium 1.6 Total Bilirubin 0.6 AST 103 H ALT 100 H Alkaline Phosphatase 361 H Total Protein 9.3 H Albumin 4.8 4.1 D Globulin 4.5 H Albumin/Globulin Ratio 1.1 L Lipase 64 H 09/22/25 09/22/25 00:47 04:38 WBC 8.4 RBC 4.47 Hgb 13.0 Hct 36.9 MCV 83 MCH 29.1 MCHC 35.2 RDW Std Deviation 41.1 Plt Count 407 D Neut % (Auto) 58 Lymph % (Auto) 29 [place] % (Auto) 9 Eos % (Auto) 2 Baso % (Auto) 1 Neut # (Auto) 4.9 Lymph # (Auto) 2.4 [place] # (Auto) 0.8 Eos # (Auto) 0.2 Baso # (Auto) 0.1 Immature Gran # (Auto) 0.12 H Absolute Nucleated RBC 0.00 Immature Gran % 1 H Nucleated RBC % 0 Sodium 123 L 119 L* Potassium 5.1 4.7 Chloride 86 L Carbon Dioxide 18.3 L Anion Gap 15 BUN 50 H Creatinine 2.6 H D Estim Creat Clear Calc 14.5 L eGFR 20 L BUN/Creatinine Ratio [address] Glu mg/dL 126 Hemoglobin A1c 6.0 Calculated Osmolality 256 L Lactic Acid 2.3 H Calcium 9.5 Corrected Calcium 9.5 Phosphorus 4.8 Magnesium 1.5 L Total Bilirubin 0.6 AST 64 H ALT 77 H Alkaline Phosphatase 290 H D Total Protein 8.0 Albumin 4.3 Globulin 3.7 H Albumin/Globulin Ratio 1.2 Lipase Quality Measures Quality Measures VTE prophylaxis Advance care planning discussed with:: patient Assessment & Plan Assessment Current Active Medications: Generic Name Dose Route Start Last Admin Trade Name Freq PRN Reason Stop Dose Admin Acetaminophen 650 mg 09/21/25 15:15 Acetaminophen 325 Mg Tablet PO 10/21/25 15:14 Q6H PRN PAIN SCALE 1-3 (mild Citric Acid/Sodium Citrate 30 ml 09/22/25 09:00 09/22/25 08:53 Citric Acid/Sodium Citr 15 Ml Udc (Bicitra) PO 10/22/25 08:59 30 ml BID SHAWNA Administration Cyanocobalamin 250 mcg 09/22/25 09:00 09/22/25 08:26 Cyanocobalamin 500 Mcg Tablet PO 10/22/25 08:59 250 mcg DAILY SHAWNA Administration Dronabinol 2.5 mg 09/21/25 21:00 09/22/25 08:25 Dronabinol 2.5 Mg Capsule PO 10/21/25 20:59 2.5 mg BID SHAWNA Administration Folic Acid 1 mg 09/22/25 09:00 09/22/25 08:26 Folic Acid 1 Mg Tablet PO 10/22/25 08:59 1 mg DAILY SHAWNA Administration Heparin Sodium (Porcine) 5,000 unit 09/21/25 21:00 09/22/25 08:53 Heparin Sod Inj 5000 Unit/Ml Vial SC 10/05/25 20:59 5,000 unit BID SHAWNA Administration Hydromorphone HCl 2 mg 09/21/25 15:21 Hydromorphone Hcl 2 Mg Tablet PO 09/26/25 15:20 Q4H PRN pain (7-10) Sodium Chloride 1,000 mls @ 80 mls/hr 09/22/25 06:23 09/22/25 06:36 Ns IV 09/22/25 18:52 80 mls/hr .[id number] ONE Administration Magnesium Sulfate 4 gm in 50 mls @ 12.5 mls/hr 09/22/25 07:34 09/22/25 08:19 Magnesium Sulfate Ivpb IV 09/22/25 11:33 12.5 mls/hr X1 ONE Administration Mirtazapine 15 mg 09/22/25 09:00 09/22/25 08:26 Mirtazapine 15 Mg Tablet PO 10/22/25 08:59 15 mg QDAY SHAWNA Administration Oxycodone/Acetaminophen 1 tab 09/21/25 15:15 09/22/25 08:25 Oxycodone/Apap 5/325 Tablet PO 09/26/25 15:14 1 tab Q6H PRN Administration PAIN SCALE 4-6 (Moderate Sodium Chloride 3 ml 09/21/25 13:58 Sodium Chloride Rt Dania 0.9% 3 Ml Nebu INH 10/21/25 13:57 PRN PRN SOLN Thiamine HCl 100 mg 09/22/25 09:00 09/22/25 08:26 Thiamine 100 Mg Tablet PO 10/22/25 08:59 100 mg DAILY SHAWNA Administration Plan Patient is a 65 year old female with past medical history of invasive adenocarcinoma of the ascending colon s/p ex lap right hemicolectomy and ileotransverse anastomosis on 07/21 and an ex lap on 08/11 with resection of small bowel 2/2 multiple lacerations and takedown of anastomosis with diverting ileostomy who was admitted for hyperkalemia and hyponatremia. Nephrology consulted for hyperkalemia and STEPH 2/2 prerenal azotemia from high ileostomy losses. # Acute renal failure 2/2 prerenal azotemia from high output ileostomy losses. #Hypovolemic Hypotonic Hyponatremia (improving) #Hyperphosphatemia (resolved) #Hypercalcemia (resolved) #Hyperkalemia (resolved) #Multiple small bowel lacerations s/p ex lap and resection of small bowl with anastomosis and diverting ileostomy 08/11 #Invasive adenocarcinoma of ascending colon s/p R hemicolectomy with ilio transverse anastomosis 07/21 - Presented from PCP with hyperkalemia and hyponatremia and was sent to the ED for evaluation. Per chart review, patient has had ongoing electrolyte abnormalities likely secondary to short bowel syndrome given her history of extensive abdominal surgeries and ileostomy. - Creatinine 3.5 -> 2.6 - Sodium 117 on admission --> 123 (NS stopped) -> 119 - Potassium 5.7 -> 4.7 - Calcium 10.3 -> 9.5 - Phosphorus 5.3 -> 4.8 Plan: - Continue IV NS at 125 mL/hr, goal 125-127 in AM - Avoid overcorrection - Strict INOs - Avoid nephrotoxic agents - Renally dose medications - Follow renal panel closely #Anion gap metabolic acidosis - Anion gap 17 - Bicarb 18 -> 18.3 - Urine lytes: sodium <10, potassium 73, chloride <20. Positive urine anion gap. - secondary to prerenal azotemia Plan: - IV fluids as above - Start on Bicitra 30 mL BID due to GI losses. Will likely need sodium bicarb tablets on discharge. #Hypotension #Chronic elevated Alk phos #Lactic acidosis (resolved) #Calorie protein Malnutrition #Normocytic anemia - Defer to primary team for management Thank you for your consultation, please do not hesitate to reach out if you have any question or concern Patient plan of care was discussed with the attending physician, Dr. Suarez. Bella Hanks DO, PGY-1 Attending Provider Attestation/Addendum Patient seen and examined with resident physician Dr. Hanks. Note reviewed, agree with findings and recommendations.
--- NOTE | 2025-09-22 09:26 | ESPR_ITS ---
<Statement entered by Jonathan Purvis MD - 09/23/25 14:48> Patient was examined and case was reviewed with team including attending physician. Note reviewed, I agree with most of its contents and agree with the patient's care. Jonathan Purvis MD PGY-2 Documentation for date of: 09/22/25 Subjective Subjective Interval history: Mrs. Washington is a Nigerien speaking, 65F with history of prediabetes and invasive adenocarcinoma of the ascending colon s/p right hemicolectomy with ileotransverse colostomy on 07/21/25 presented from SNF for hyperkelemia and hyponatremia, likely secondary to STEPH from short gut syndrome. 09/22/25: Overngiht, ~800mL of D5W was given to avoid rapid correction of Na from 117 to 124. Na level this morning 119 with UOP ~1L past 24H. Patient seen and examined at bedside, no acute complaint, resting comfortably in bed. Still not much appetite, increased Marinol from 2.5mg to 5mg PO BID today. Nephrology recommended Bicitra 30mL PO BID, and patient should be discharged with sodium carbonate tablet due to high ileostomy output. Client Development Consultant level improved from 3.2 to 2.6 today. Plan of care discussed with patient, will continue NaCl 0.9% @ rate of 80ml/hr with Na check Q4H to avoid rapid correction. Exam Vital Signs Temp Pulse Resp BP Pulse Ox O2 Del Method 97.5 F 95 16 98/73 95 Room Air 09/22/25 08:00 09/22/25 08:00 09/22/25 08:00 09/22/25 08:00 09/22/25 08:00 09/22/25 08:00 Narrative Exam General: Awake and in no acute distress. A/O x 3. HEENT: Normocephalic, atraumatic Heart: Regular rate and rhythm. Lungs: Clear to auscultation with no wheezing or crackles. Abdomen: Soft, nondistended, nontender. No guarding or rebound tenderness. T ransverse surgical scar d/c/i, no dehiscence, mild surrounding erythema appreciated. Ileostomy bag in place draining loose small bowel contents Neurologic: Alert and oriented x3, no gross neurological deficit. Extremities: Moving all extremities. Skin: Dry, clean, intact. No ecchymosis. Objective Labs 09/22/25 04:38 09/22/25 12:56 Labs: Laboratory Results - last 24 hr 09/21/25 09/21/25 09/21/25 12:28 17:25 21:19 WBC 9.6 RBC 4.99 Hgb 14.5 Hct 40.9 MCV 82 MCH 29.1 MCHC 35.5 RDW Std Deviation 40.7 Plt Count 473 H D Neut % (Auto) 71 Lymph % (Auto) 18 [place] % (Auto) 8 Eos % (Auto) 2 Baso % (Auto) 1 Neut # (Auto) 6.8 Lymph # (Auto) 1.7 [place] # (Auto) 0.8 Eos # (Auto) 0.1 Baso # (Auto) 0.1 Immature Gran # (Auto) 0.11 H Absolute Nucleated RBC 0.00 Immature Gran % 1 H Nucleated RBC % 0 Sodium 117 L* 123 L 124 L Potassium 5.7 H 5.3 H Chloride 82 L 88 L Carbon Dioxide 20.8 18.0 L Anion Gap 14 17 H BUN 63 H 52 H Creatinine 3.5 H 3.2 H Estim Creat Clear Calc 11.5 L 12.6 L eGFR 14 L* 15 L BUN/Creatinine Ratio 18 16 Glucose [address] Glu mg/dL Hemoglobin A1c Calculated Osmolality 257 L 263 L Lactic Acid Calcium 10.3 9.7 Corrected Calcium 10.3 H 9.7 Phosphorus 5.3 H Magnesium 1.6 Total Bilirubin 0.6 AST 103 H ALT 100 H Alkaline Phosphatase 361 H Total Protein 9.3 H Albumin 4.8 4.1 D Globulin 4.5 H Albumin/Globulin Ratio 1.1 L Lipase 64 H 09/22/25 09/22/25 00:47 04:38 WBC 8.4 RBC 4.47 Hgb 13.0 Hct 36.9 MCV 83 MCH 29.1 MCHC 35.2 RDW Std Deviation 41.1 Plt Count 407 D Neut % (Auto) 58 Lymph % (Auto) 29 [place] % (Auto) 9 Eos % (Auto) 2 Baso % (Auto) 1 Neut # (Auto) 4.9 Lymph # (Auto) 2.4 [place] # (Auto) 0.8 Eos # (Auto) 0.2 Baso # (Auto) 0.1 Immature Gran # (Auto) 0.12 H Absolute Nucleated RBC 0.00 Immature Gran % 1 H Nucleated RBC % 0 Sodium 123 L 119 L* Potassium 5.1 4.7 Chloride 86 L Carbon Dioxide 18.3 L Anion Gap 15 BUN 50 H Creatinine 2.6 H D Estim Creat Clear Calc 14.5 L eGFR 20 L BUN/Creatinine Ratio [address]ucose [address] Glu mg/dL 126 Hemoglobin A1c 6.0 Calculated Osmolality 256 L Lactic Acid 2.3 H Calcium 9.5 Corrected Calcium 9.5 Phosphorus 4.8 Magnesium 1.5 L Total Bilirubin 0.6 AST 64 H ALT 77 H Alkaline Phosphatase 290 H D Total Protein 8.0 Albumin 4.3 Globulin 3.7 H Albumin/Globulin Ratio 1.2 Lipase Quality Measures Quality Measures VTE prophylaxis Advance care planning discussed with:: patient Assessment & Plan Assessment Current Active Medications: Generic Name Dose Route Start Last Admin Trade Name Freq PRN Reason Stop Dose Admin Acetaminophen 650 mg 09/21/25 15:15 Acetaminophen 325 Mg Tablet PO 10/21/25 15:14 Q6H PRN PAIN SCALE 1-3 (mild Citric Acid/Sodium Citrate 30 ml 09/22/25 09:00 09/22/25 08:53 Citric Acid/Sodium Citr 15 Ml Udc (Bicitra) PO 10/22/25 08:59 30 ml BID SHAWNA Administration Cyanocobalamin 250 mcg 09/22/25 09:00 09/22/25 08:26 Cyanocobalamin 500 Mcg Tablet PO 10/22/25 08:59 250 mcg DAILY SHAWNA Administration Dronabinol 2.5 mg 09/21/25 21:00 09/22/25 08:25 Dronabinol 2.5 Mg Capsule PO 10/21/25 20:59 2.5 mg BID SHAWNA Administration Folic Acid 1 mg 09/22/25 09:00 09/22/25 08:26 Folic Acid 1 Mg Tablet PO 10/22/25 08:59 1 mg DAILY SHAWNA Administration Heparin Sodium (Porcine) 5,000 unit 09/21/25 21:00 09/22/25 08:53 Heparin Sod Inj 5000 Unit/Ml Vial SC 10/05/25 20:59 5,000 unit BID SHAWNA Administration Hydromorphone HCl 2 mg 09/21/25 15:21 Hydromorphone Hcl 2 Mg Tablet PO 09/26/25 15:20 Q4H PRN pain (7-10) Sodium Chloride 1,000 mls @ 80 mls/hr 09/22/25 06:23 09/22/25 06:36 Ns IV 09/22/25 18:52 80 mls/hr .[id number] ONE Administration Magnesium Sulfate 4 gm in 50 mls @ 12.5 mls/hr 09/22/25 07:34 09/22/25 08:19 Magnesium Sulfate Ivpb IV 09/22/25 11:33 12.5 mls/hr X1 ONE Administration Mirtazapine 15 mg 09/22/25 09:00 09/22/25 08:26 Mirtazapine 15 Mg Tablet PO 10/22/25 08:59 15 mg QDAY SHAWNA Administration Oxycodone/Acetaminophen 1 tab 09/21/25 15:15 09/22/25 08:25 Oxycodone/Apap 5/325 Tablet PO 09/26/25 15:14 1 tab Q6H PRN Administration PAIN SCALE 4-6 (Moderate Sodium Chloride 3 ml 09/21/25 13:58 Sodium Chloride Rt Dania 0.9% 3 Ml Nebu INH 10/21/25 13:57 PRN PRN SOLN Thiamine HCl 100 mg 09/22/25 09:00 09/22/25 08:26 Thiamine 100 Mg Tablet PO 10/22/25 08:59 100 mg DAILY SHAWNA Administration Plan Mrs. Washington is a Nigerien speaking, 65F with history of invasive adenocarcinoma of the ascending colon s/p right hemicolectomy with ileotransverse colostomy on 07/21/25 presented from SNF for hyperkelemia and hyponatremia. #Short gut syndrome #High ileostomy output #Hx of invasive adenocarcinoma of the ascending colon s/p right hemicolectomy with ileotransverse colostomy (07/21/25) #Calorie protein Malnutrition Per prior note, pt has significant weight loss and not meeting daily nutritional requirement. Plan: - Dietitian consulted, appreciate recs - Ensure + Banatrol Plus with meals - Increased Dronabinol 2.5 mg to 5mg PO BID - May require GI consultation for further recommendations if not meeting nutritional goal #Pre-renal STEPH likely secondary to dehydration from high ileostomy output - improving Initial BUN to Client Development Consultant ratio > 20. Plan: - nephrology consulted, appreciate recs. --> added Bicitra 30mL PO BID. Recs sodium bicarb tabs for discharge. - fluid resuscitation with NaCl 0.9% @ rate of 80ml/hr with Q4H Na check. - monitor urine output - daily labs, monitor chemistry - renal dose med, avoid nephrotoxin - avoid contrast or offending mediations #Eletroclyte abnormalities #Hyperkelemia #Hyponatremia #Hyperphosphatemia Consistent with short gut syndrome with STEPH from high ileostomy output Plan: - Careful correction of Na to avoid Osmotic Demyelination Syndrome (ODS) - Hyperkalemic cocktail given in ED (1000 mg of calcium gluconate IV, 1 amp of D50 IV, 5 units of regular insulin IV and 10 mg of continuous nebulized albuterol) - Kayexelate 30gm x 1 (09/21/25) - Na level Q4H - Recheck K level in AM, if still elevated, may consider another hyperkelemic cocktail. #Anion gap metabolic acidosis - resolving 09/21/25: Bicarb 18, AG 17. BUN 63 Likely secondary to GI losses vs uremia - Lactate 09/22/25 peaked at 3.5, downtrending - Trending lactic acid Q6H 3 series. - Likely resolve with fluid resuscitation Health maintenance Dispo: pending resolution of STEPH, hyperkelemia, hyponatremia DVT prophylaxis: HEPARIN GI prophylaxis: N/A Antibiotics: N/A Bowel Regimen: N/A Diet: Renal diet, high protein ensure, Banatrol Plus Lines: Peripheral IV. Code status: Full code Case discussed with my senior resident Dr. Delong Case discussed with my attending Dr. Maury Cochran Cori, PGY 1 Attending Provider Attestation/Addendum I have seen and examined the patient. I was physically present for the [place] portions of the services provided including history, physical exam, diagnosis, treatment plans and orders. I agree with assessment and plan of care as documented by residents. Even though this this note was carefully revised there may still be minor errors in living skills advisor due to voice recognition software. Logan Mendiola MD
[2025-09-22 09:34] LABS: Lactic Acid, 3 HR 3.5 mMol/L (0.4-2.0)
[2025-09-22 10:25] VITALS: BMI 17.7
[2025-09-22 10:25] LABS: Sodium 117 mMol/L (136-145)
[2025-09-22 12:00] VITALS: BP 109/70; PULSE 80; PULSE 87; RESP 16; TEMP 36.1; O2SAT 97
[2025-09-22 12:58] LABS: Lactate (Lactic Acid) 2.0 mMol/L (0.4-2.0)
[2025-09-22 13:23] LABS: Sodium 121 mMol/L (136-145)
--- NOTE | 2025-09-22 14:43 | PC.SS ---
Rounding: Pt sodium being monitored, rotary shear cutter following. [facility], HH not an option for terminal gauger per Jennifer Pagan RN. SNF also not an option for terminal gauger as pt will need to have a stop date in place. SS reached [facility] to [facility] who stated [facility] an option for them. Referral to be submitted.
[2025-09-22 16:00] VITALS: BP 92/59; PULSE 83; PULSE 88; RESP 16; TEMP 36.4; O2SAT 96
[2025-09-22 17:57] LABS: Sodium 121 mMol/L (136-145)
[2025-09-22] MEDS: SODIUM CHLORIDE 0.9% 1000 ML 1,000 ML 125 ML IV (19:17)
[2025-09-22 20:00] VITALS: BP 105/62; PULSE 83; PULSE 84; RESP 17; TEMP 36.8; O2SAT 98
[2025-09-22] MEDS: NYSTATIN PWD 15 GM BTL TOP (20:46)
[2025-09-22 20:51] LABS: Lactate (Lactic Acid) 3.8 mMol/L (0.4-2.0)
[2025-09-22 21:16] LABS: Sodium 123 mMol/L (136-145)
[2025-09-22 23:47] LABS: Reflex Lactate? Y
[2025-09-23] VITALS (8 sets, daily range): BP systolic 91–121; BP diastolic 56–75; PULSE 69–107; RESP 13–26; TEMP 36.1–36.9; O2SAT 96–99; BMI 18.6
[2025-09-23 00:17] LABS: Lactic Acid, 3 HR 3.2 mMol/L (0.4-2.0)
[2025-09-23 00:45] LABS: Sodium 125 mMol/L (136-145)
[2025-09-23] MEDS: MELATONIN 3 MG TABLET 6 MG PO (01:25)
[2025-09-23 06:12] LABS: Basophils # (Auto) 0.1 Thou/mm3 (0.0-0.2); Basophils % (Auto) 1 % (0-2.5); Eosinophils # (Auto) 0.4 Thou/mm3 (0.0-0.5); Eosinophils % (Auto) 5 % (0-10); Hematocrit 34.7 % (36.0-46.0); Hemoglobin 12.1 g/dL (12.0-16.0); Immature Granulocytes Auto 0.04 Thou/mm3 (0.00-0.00); Lymphocytes # (Auto) 2.7 Thou/mm3 (1.0-4.8); Lymphocytes % (Auto) 33 % (10-50); Mean Corpuscular HGB Conc 34.9 g/dl (31.0-37.0); Mean Corpuscular Hemoglobin 29.3 pg (25.0-35.0); Mean Corpuscular Volume 84 fL (80-100); Monocytes # (Auto) 0.7 Thou/mm3 (0.0-0.8); Monocytes % (Auto) 9 % (0-12); Neutrophils # (Auto) 4.3 Thou/mm3 (1.8-7.7); Neutrophils % (Auto) 52 % (37-80); Nucleated Red Blood Cell # 0.00 Thou/mm3 (0.00-0.00); Nucleated Red Blood Cell % 0 /100 WBC (0); Platelet Count 344 Thou/mm3 (140-440); RDW Standard Deviation 42.5 fL (36.4-46.3); Red Blood Count 4.13 Miln/mm3 (4.00-5.20); White Blood Count 8.2 Thou/mm3 (3.6-11.0)
[2025-09-23 07:07] LABS: Alanine Aminotransferase 53 U/L (10-49); Albumin, Serum 4.0 gm/dL (3.4-4.8); Albumin/Globulin Ratio 1.2 (1.2-2.2); Alkaline Phosphatase 262 U/L (46-116); Anion Gap 12 (7-16); Aspartate Amino Transferase 40 U/L (0-34); BUN/Creatinine Ratio 24 Ratio (12-20); Bilirubin,Total 0.4 mg/dL (0.3-1.2); Blood Urea Nitrogen 33 mg/dL (9-23); Calcium 9.1 mg/dL (8.3-10.6); Calcium (Corrected) 9.1 mg/dL (8.5-10.1); Carbon Dioxide 22.5 mMol/L (20.0-31.0); Chloride 92 mMol/L (98-107); Creatinine (Component) 1.4 mg/dL (0.6-1.3); Estimated Creatinine Clearance 28.3 mL/min (>60); Globulin 3.3 gm/dL (2.3-3.5); Glucose 108 mg/dL (74-106); Magnesium 2.4 mg/dL (1.6-2.6); Osmolality,Calculated 261 (275-295); Phosphorous 3.1 mg/dL (2.4-5.1); Potassium 4.0 mMol/L (3.4-5.1); Sodium 126 mMol/L (136-145); Total Protein 7.3 gm/dL (5.7-8.2); eGFR 42 See Note
--- NOTE | 2025-09-23 08:42 | PD.RESPRO ---
Documentation for date of: 09/23/25 Subjective Subjective Interval history: History of present illness: Patient comes back with the same diagnosis of acute renal failure, electrolyte imbalance with high output ileostomy losses. Seen in the emergency department. Sick looking. Home medications included vitamin D, B12, Pepcid, folic acid, Dilaudid, mirtazapine, multivitamin, thiamine, zinc. Blood pressure 103/75, heart rate 110, afebrile CBC normal except platelets 473.Sodium 117, potassium 5.7, bicarbonate 20.8, BUN 63, creatinine 3.5, GFR 14. Also noted 10 days ago her creatinine was 0.5. Calcium 10.3, magnesium 1.6, AST 103, ALT 100, alk phos 361, albumin 4.8, globulin 4.5, lipase 64. Urinalysis shows significant pyuria, urine sodium less than 10 Patient admitted for hyperkalemia in setting of prerenal STEPH secondary to high ileostomy output. Nephrology consulted for management of hyperkalemia and STEPH. 09/22/25: Patient seen and assessed at bedside. Reports she is feeling better. Overnight, normal saline stopped due to overcorrection of sodium, improved to 123. Dropped back to 119, restart IV NS at 125 mL/h. Goal sodium 125- 127, sodium check q6hr. potassium 4.7, chloride 86, bicarb 18.3, BUN 58, creatinine 2.6, GFR 28. A1c 6.0. Lactic acid 2.3. Calcium 9.5, phosphorus 4.8, magnesium 1.5, repleted. Still has mildly elevated liver enzymes. Started Bicitra due to GI bicarb losses, recommend discharging with sodium bicarb tablets. 09/23/25: Patient seen and assessed at bedside. Doing well. UOP 1.4L. Sodium 126, continue NS with goal 132. Potassium 4.0, chloride 92, bicarb 22.5, BUN 33, creatinine 1.4, GFR 42. Continue NS at 125 cc/hr and Bicitra. Patient is medically stable for discharge from nephrology standpoint if sodium continues to improve. Send with sodium bicarb tablets. Exam Vital Signs Temp Pulse Resp BP Pulse Ox O2 Del Method 98.5 F 78 13 121/75 98 Room Air 09/23/25 04:00 09/23/25 04:00 09/23/25 04:00 09/23/25 04:00 09/23/25 04:00 09/23/25 04:00 Narrative Exam Physical Exam General: Awake and in no acute distress. Conversational. Cachectic. HEENT: Patches of hair loss. Normocephalic, atraumatic, mucous membranes moist. Heart: Regular rate and rhythm, normal S1 and S2, no murmurs. Lungs: Clear to auscultation with no wheezing or crackles. Abdomen: Soft, nondistended, nontender, positive bowel sounds. No guarding or rebound tenderness. Diverticulum ileostomy with redness around the ileostomy site. Bag fluid with liquidy stool Neurologic: Alert and oriented x3, no gross neurological deficit, and patient able to move all 4 extremities. Extremities: No edema. Skin: Erythema around ileostomy site. No ecchymoses. Objective Labs 09/26/25 05:23 09/26/25 18:39 Labs: Laboratory Results - last 24 hr 09/22/25 09/22/25 09/22/25 09:25 12:56 16:51 WBC RBC Hgb Hct MCV MCH MCHC RDW Std Deviation Plt Count Neut % (Auto) Lymph % (Auto) [place] % (Auto) Eos % (Auto) Baso % (Auto) Neut # (Auto) Lymph # (Auto) [place] # (Auto) Eos # (Auto) Baso # (Auto) Immature Gran # (Auto) Absolute Nucleated RBC Immature Gran % Nucleated RBC % Sodium 117 L* 121 L 121 L Potassium Chloride Carbon Dioxide Anion Gap BUN Creatinine Estim Creat Clear Calc eGFR BUN/Creatinine Ratio Glucose Calculated Osmolality Lactic Acid 3.5 H 2.0 Calcium Corrected Calcium Phosphorus Magnesium Total Bilirubin AST ALT Alkaline Phosphatase Total Protein Albumin Globulin Albumin/Globulin Ratio 09/22/25 09/23/25 09/23/25 20:26 00:03 05:39 WBC 8.2 RBC 4.13 Hgb 12.1 Hct 34.7 L MCV 84 MCH 29.3 MCHC 34.9 RDW Std Deviation 42.5 Plt Count 344 D Neut % (Auto) 52 Lymph % (Auto) 33 [place] % (Auto) 9 Eos % (Auto) 5 Baso % (Auto) 1 Neut # (Auto) 4.3 Lymph # (Auto) 2.7 [place] # (Auto) 0.7 Eos # (Auto) 0.4 Baso # (Auto) 0.1 Immature Gran # (Auto) 0.04 H Absolute Nucleated RBC 0.00 Immature Gran % 1 H Nucleated RBC % 0 Sodium 123 L 125 L 126 L Potassium 4.0 D Chloride 92 L Carbon Dioxide 22.5 Anion Gap 12 BUN 33 H Creatinine 1.4 H D Estim Creat Clear Calc 28.3 L eGFR 42 L BUN/Creatinine Ratio 24 H Glucose 108 H D Calculated Osmolality 261 L Lactic Acid 3.8 H 3.2 H Calcium 9.1 Corrected Calcium 9.1 Phosphorus 3.1 Magnesium 2.4 Total Bilirubin 0.4 AST 40 H ALT 53 H Alkaline Phosphatase 262 H D Total Protein 7.3 Albumin 4.0 Globulin 3.3 Albumin/Globulin Ratio 1.2 Quality Measures Quality Measures VTE prophylaxis Advance care planning discussed with:: patient Assessment & Plan Assessment Current Active Medications: Generic Name Dose Route Start Last Admin Trade Name Freq PRN Reason Stop Dose Admin Acetaminophen 650 mg 09/21/25 15:15 Acetaminophen 325 Mg Tablet PO 10/21/25 15:14 Q6H PRN PAIN SCALE 1-3 (mild Citric Acid/Sodium Citrate 30 ml 09/22/25 09:00 09/22/25 20:46 Citric Acid/Sodium Citr 15 Ml Udc (Bicitra) PO 10/22/25 08:59 30 ml BID SHAWNA Administration Cyanocobalamin 250 mcg 09/22/25 09:00 09/22/25 08:26 Cyanocobalamin 500 Mcg Tablet PO 10/22/25 08:59 250 mcg DAILY SHAWNA Administration Dronabinol 5 mg 09/22/25 21:00 09/22/25 20:46 Dronabinol 2.5 Mg Capsule PO 10/22/25 20:59 5 mg BID SHAWNA Administration Folic Acid 1 mg 09/22/25 09:00 09/22/25 08:26 Folic Acid 1 Mg Tablet PO 10/22/25 08:59 1 mg DAILY SHAWNA Administration Heparin Sodium (Porcine) 5,000 unit 09/21/25 21:00 09/22/25 20:45 Heparin Sod Inj 5000 Unit/Ml Vial SC 10/05/25 20:59 5,000 unit BID SHAWNA Administration Hydromorphone HCl 2 mg 09/21/25 15:21 Hydromorphone Hcl 2 Mg Tablet PO 09/26/25 15:20 Q4H PRN pain (7-10) Sodium Chloride 1,000 mls @ 125 mls/hr 09/23/25 07:59 Ns IV 09/23/25 15:58 .Q8H ONE Mirtazapine 15 mg 09/22/25 09:00 09/22/25 08:26 Mirtazapine 15 Mg Tablet PO 10/22/25 08:59 15 mg QDAY SHAWNA Administration Nystatin 0 gm 09/22/25 21:00 09/22/25 20:46 Nystatin Pwd 15 Gm Btl TOP 10/22/25 20:59 1 applicatio BID SHAWNA Administration Oxycodone/Acetaminophen 1 tab 09/21/25 15:15 09/22/25 08:25 Oxycodone/Apap 5/325 Tablet PO 09/26/25 15:14 1 tab Q6H PRN Administration PAIN SCALE 4-6 (Moderate Sodium Chloride 3 ml 09/21/25 13:58 Sodium Chloride Rt Dania 0.9% 3 Ml Nebu INH 10/21/25 13:57 PRN PRN SOLN Thiamine HCl 100 mg 09/22/25 09:00 09/22/25 08:26 Thiamine 100 Mg Tablet PO 10/22/25 08:59 100 mg DAILY SHAWNA Administration Plan Patient is a 65 year old female with past medical history of invasive adenocarcinoma of the ascending colon s/p ex lap right hemicolectomy and ileotransverse anastomosis on 07/21 and an ex lap on 08/11 with resection of small bowel 2/2 multiple lacerations and takedown of anastomosis with diverting ileostomy who was admitted for hyperkalemia and hyponatremia. Nephrology consulted for hyperkalemia and STEPH 2/2 prerenal azotemia from high ileostomy losses. # Acute renal failure 2/2 prerenal azotemia from high output ileostomy losses. #Hypovolemic Hypotonic Hyponatremia (improving) #Hyperphosphatemia (resolved) #Hypercalcemia (resolved) #Hyperkalemia (resolved) #Multiple small bowel lacerations s/p ex lap and resection of small bowl with anastomosis and diverting ileostomy 08/11 #Invasive adenocarcinoma of ascending colon s/p R hemicolectomy with ilio transverse anastomosis 07/21 - Presented from PCP with hyperkalemia and hyponatremia and was sent to the ED for evaluation. Per chart review, patient has had ongoing electrolyte abnormalities likely secondary to short bowel syndrome given her history of extensive abdominal surgeries and ileostomy. - Sodium 117 on admission --> 123 (NS stopped) -> 119 -> 126 - Potassium 5.7, calcium 10.3, phosphorus 5.3 on admission, all now within normal limits. - Creatinine 3.5 -> 2.6 -> 1.4, back to baseline Plan: - Continue IV NS at 125 mL/hr, goal 132. Medically stable for discharge if sodium continues to improve. Instructed patient to drink electrolyte rich fluids like Pedialyte at home to avoid electrolyte depletion. - Avoid overcorrection - Strict INOs - Avoid nephrotoxic agents - Renally dose medications - Follow renal panel closely #Anion gap metabolic acidosis (resolved) - Anion gap 17 on admission --> 12 - Bicarb 18 -> 18.3 -> 22.5 - Urine lytes: sodium <10, potassium 73, chloride <20. Positive urine anion gap, usually not associated with GI losses but likely in this case gien high ileostomy output and significant abdominal surgical history. Plan: - IV fluids as above - Discontinue Bicitra 30 mL BID - Discharge with sodium bicarb tablets 325 BID. #Hypotension #Chronic elevated Alk phos #Lactic acidosis (resolved) #Calorie protein Malnutrition #Normocytic anemia - Defer to primary team for management Thank you for your consultation, please do not hesitate to reach out if you have any question or concern Patient plan of care was discussed with the attending physician, Dr. Suarez. Bella Hanks DO, PGY-1 Attending Provider Attestation/Addendum Patient seen and examined with resident physician Dr. Hanks. Note reviewed, agree with findings and recommendations.
[2025-09-23] MEDS: MIRTAZAPINE 15 MG TABLET PO (08:57)
[2025-09-23] MEDS: THIAMINE 100 MG TABLET PO (08:58)
[2025-09-23] MEDS: HEPARIN SOD INJ 5000 UNIT/ML VIAL SC ×2 (08:58→20:52)
[2025-09-23] MEDS: SODIUM CHLORIDE 0.9% 1000 ML 1,000 ML 125 ML IV (08:58)
[2025-09-23] MEDS: FOLIC ACID 1 MG TABLET PO (08:58)
[2025-09-23] MEDS: NYSTATIN PWD 15 GM BTL TOP ×2 (09:02→20:57)
--- NOTE | 2025-09-23 09:30 | PC.SS ---
Carla Washington is a 65-year-old female admitted to [facility] for Hyperkalemia. Pt is a resident of [facility]. SS spoke to pt son Dionisio Samuel [phone] who is the pt surrogate decision maker with his brother Gurpreet Samuel [phone]. Pt is receiving wound care, and Pt at [facility]. Dionisio reports they would like pt to DC back to [facility]. Pt has coverage for transport, but if too late in day family willing to transport on behalf of the pt, if [facility] is not available. SS will remain available for any additional needs or concerns. DC plan: [facility] DM: Pasquale Vázquez PCP: Ary Short
[2025-09-23 09:44] LABS: Sodium 127 mMol/L (136-145)
[2025-09-23] MEDS: CITRIC ACID/SODIUM CITR 15 ML UDC (BICITRA) 30 ML PO ×2 (10:44→20:52)
[2025-09-23] MEDS: LOPERAMIDE 2 MG CAPSULE 4 MG PO ×2 (11:08→17:11)
[2025-09-23] MEDS: HYDROMORPHONE HCL 2 MG TABLET PO (12:40)
--- NOTE | 2025-09-23 13:58 | ESPR_ITS ---
<Statement entered by Jonathan Purvis MD - 09/25/25 06:00> Patient was examined and case was reviewed with team including attending physician. Note reviewed, I agree with most of its contents and agree with the patient's care. Jonathan Purvis MD PGY-2 Documentation for date of: 09/23/25 Subjective Subjective Interval history: Mrs. Washington is a Ghanaian speaking, 65F with history of prediabetes and invasive adenocarcinoma of the ascending colon s/p right hemicolectomy with ileotransverse colostomy on 07/21/25 presented from SNF for hyperkelemia and hyponatremia, likely secondary to STEPH from short gut syndrome. 09/22/25: Overnight, ~800mL of D5W was given to avoid rapid correction of Na from 117 to 124. Na level this morning 119 with UOP ~1L past 24H. Patient seen and examined at bedside, no acute complaint, resting comfortably in bed. Still not much appetite, increased Marinol from 2.5mg to 5mg PO BID today. Nephrology recommended Bicitra 30mL PO BID, and patient should be discharged with sodium carbonate tablet due to high ileostomy output. Operating System Designer level improved from 3.2 to 2.6 today. Plan of care discussed with patient, will continue NaCl 0.9% @ rate of 80ml/hr with Na check Q4H to avoid rapid correction. 09/23/25: NAOE. Na level 126 this morning and Operating System Designer level improved to 1.4. Ileostomy output 1L. Will continue NaCl 0.9% @ rate of 125ml/hr today with frequent Na level check. Patient is clinically stable for discharge from nephrology standpoint if sodium continues to improve. However, given patient's recent dramatic weight loss, high ileostomy output, and frequent readmission, a discussion was held today at bedside via phone with patient and patient's son regarding the potential need to start patient on longshore equipment operator TPN to support patient's nutrition status. At this time, the best option for disposition is home health with TPN. Exam Vital Signs Temp Pulse Resp BP Pulse Ox O2 Del Method 97.6 F 100 26 H 92/56 L 97 Room Air 09/23/25 11:50 09/23/25 11:50 09/23/25 11:50 09/23/25 11:50 09/23/25 11:50 09/23/25 11:50 Narrative Exam General: Awake and in no acute distress. A/O x 3. HEENT: Normocephalic, atraumatic Heart: Regular rate and rhythm. Lungs: Clear to auscultation with no wheezing or crackles. Abdomen: Soft, nondistended, nontender. No guarding or rebound tenderness. T ransverse surgical scar d/c/i, no dehiscence, mild surrounding erythema appreciated. Ileostomy bag in place draining liquid content Neurologic: Alert and oriented x3, no gross neurological deficit. Extremities: Moving all extremities. Skin: Dry, clean, intact. No ecchymosis. Objective Labs 09/24/25 03:45 09/24/25 03:45 Labs: Laboratory Results - last 24 hr 09/22/25 09/22/25 09/23/25 16:51 20:26 00:03 WBC RBC Hgb Hct MCV MCH MCHC RDW Std Deviation Plt Count Neut % (Auto) Lymph % (Auto) [place] % (Auto) Eos % (Auto) Baso % (Auto) Neut # (Auto) Lymph # (Auto) [place] # (Auto) Eos # (Auto) Baso # (Auto) Immature Gran # (Auto) Absolute Nucleated RBC Immature Gran % Nucleated RBC % Sodium 121 L 123 L 125 L Potassium Chloride Carbon Dioxide Anion Gap BUN Creatinine Estim Creat Clear Calc eGFR BUN/Creatinine Ratio Glucose Calculated Osmolality Lactic Acid 3.8 H 3.2 H Calcium Corrected Calcium Phosphorus Magnesium Total Bilirubin AST ALT Alkaline Phosphatase Total Protein Albumin Globulin Albumin/Globulin Ratio 09/23/25 09/23/25 05:39 08:30 WBC 8.2 RBC 4.13 Hgb 12.1 Hct 34.7 L MCV 84 MCH 29.3 MCHC 34.9 RDW Std Deviation 42.5 Plt Count 344 D Neut % (Auto) 52 Lymph % (Auto) 33 [place] % (Auto) 9 Eos % (Auto) 5 Baso % (Auto) 1 Neut # (Auto) 4.3 Lymph # (Auto) 2.7 [place] # (Auto) 0.7 Eos # (Auto) 0.4 Baso # (Auto) 0.1 Immature Gran # (Auto) 0.04 H Absolute Nucleated RBC 0.00 Immature Gran % 1 H Nucleated RBC % 0 Sodium 126 L 127 L Potassium 4.0 D Chloride 92 L Carbon Dioxide 22.5 Anion Gap 12 BUN 33 H Creatinine 1.4 H D Estim Creat Clear Calc 28.3 L eGFR 42 L BUN/Creatinine Ratio 24 H Glucose 108 H D Calculated Osmolality 261 L Lactic Acid Calcium 9.1 Corrected Calcium 9.1 Phosphorus 3.1 Magnesium 2.4 Total Bilirubin 0.4 AST 40 H ALT 53 H Alkaline Phosphatase 262 H D Total Protein 7.3 Albumin 4.0 Globulin 3.3 Albumin/Globulin Ratio 1.2 Quality Measures Quality Measures VTE prophylaxis Advance care planning discussed with:: patient and child Assessment & Plan Assessment Current Active Medications: Generic Name Dose Route Start Last Admin Trade Name Freq PRN Reason Stop Dose Admin Acetaminophen 650 mg 09/21/25 15:15 Acetaminophen 325 Mg Tablet PO 10/21/25 15:14 Q6H PRN PAIN SCALE 1-3 (mild Citric Acid/Sodium Citrate 30 ml 09/22/25 09:00 09/23/25 10:44 Citric Acid/Sodium Citr 15 Ml Udc (Bicitra) PO 10/22/25 08:59 30 ml BID SHAWNA Administration Cyanocobalamin 250 mcg 09/22/25 09:00 09/23/25 08:57 Cyanocobalamin 500 Mcg Tablet PO 10/22/25 08:59 250 mcg DAILY SHAWNA Administration Dronabinol 5 mg 09/22/25 21:00 09/23/25 08:58 Dronabinol 2.5 Mg Capsule PO 10/22/25 20:59 5 mg BID SHAWNA Administration Folic Acid 1 mg 09/22/25 09:00 09/23/25 08:58 Folic Acid 1 Mg Tablet PO 10/22/25 08:59 1 mg DAILY SHAWNA Administration Heparin Sodium (Porcine) 5,000 unit 09/21/25 21:00 09/23/25 08:58 Heparin Sod Inj 5000 Unit/Ml Vial SC 10/05/25 20:59 5,000 unit BID SHAWNA Administration Hydromorphone HCl 2 mg 09/21/25 15:21 09/23/25 12:40 Hydromorphone Hcl 2 Mg Tablet PO 09/26/25 15:20 2 mg Q4H PRN Administration pain (7-10) Sodium Chloride 1,000 mls @ 125 mls/hr 09/23/25 07:59 09/23/25 08:58 Ns IV 09/23/25 15:58 125 mls/hr .Q8H ONE Administration Loperamide HCl 4 mg 09/23/25 12:00 09/23/25 11:08 Loperamide 2 Mg Capsule PO 09/30/25 11:59 4 mg Q6HR SHAWNA Administration Mirtazapine 15 mg 09/22/25 09:00 09/23/25 08:57 Mirtazapine 15 Mg Tablet PO 10/22/25 08:59 15 mg QDAY SHAWNA Administration Nystatin 0 gm 09/22/25 21:00 09/23/25 09:02 Nystatin Pwd 15 Gm Btl TOP 10/22/25 20:59 1 applicatio BID SHAWNA Administration Oxycodone/Acetaminophen 1 tab 09/21/25 15:15 09/23/25 09:03 Oxycodone/Apap 5/325 Tablet PO 09/26/25 15:14 1 tab Q6H PRN Administration PAIN SCALE 4-6 (Moderate Sodium Chloride 3 ml 09/21/25 13:58 Sodium Chloride Rt Dania 0.9% 3 Ml Nebu INH 10/21/25 13:57 PRN PRN SOLN Thiamine HCl 100 mg 09/22/25 09:00 09/23/25 08:58 Thiamine 100 Mg Tablet PO 10/22/25 08:59 100 mg DAILY SHAWNA Administration Plan Mrs. Washington is a Ghanaian speaking, 65F with history of invasive adenocarcinoma of the ascending colon s/p right hemicolectomy with ileotransverse colostomy on 07/21/25 presented from SNF for hyperkelemia and hyponatremia. #Short gut syndrome #High ileostomy output #Hx of invasive adenocarcinoma of the ascending colon s/p right hemicolectomy with ileotransverse colostomy (07/21/25) #Calorie protein Malnutrition Per prior note, pt has significant weight loss and not meeting daily nutritional requirement. Plan: - Dietitian consulted, recs 6 small meals, renal, Ensure Plus 8oz, Banatrol Plus - Continue Dronabinol 5mg PO BID - May require longshore equipment operator TPN if not meeting nutritional goal #Pre-renal STEPH likely secondary to dehydration from high ileostomy output - improving Initial BUN to Operating System Designer ratio > 20. Plan: - nephrology consulted, appreciate recs. --> added Bicitra 30mL PO BID. Recs sodium bicarb tabs for discharge. - fluid resuscitation with NaCl 0.9% @ rate of 125ml/hr with Q4H Na check. - monitor urine output - daily labs, monitor chemistry - renal dose med, avoid nephrotoxin - avoid contrast or offending mediations #Eletroclyte abnormalities #Hyperkelemia #Hyponatremia #Hyperphosphatemia Consistent with short gut syndrome with STEPH from high ileostomy output Plan: - Careful correction of Na to avoid Osmotic Demyelination Syndrome (ODS) - Hyperkalemic cocktail given in ED (1000 mg of calcium gluconate IV, 1 amp of D50 IV, 5 units of regular insulin IV and 10 mg of continuous nebulized albuterol) - Kayexelate 30gm x 1 (09/21/25) - Na level Q6H - Recheck K level in AM, if still elevated, may consider another hyperkelemic cocktail. #Anion gap metabolic acidosis - resolving 09/21/25: Bicarb 18, AG 17. BUN 63 Likely secondary to GI losses vs uremia - Lactate 09/22/25 peaked at 3.5, downtrending - Likely resolve with fluid resuscitation Health maintenance Dispo: pending resolution of STEPH, hyperkelemia, hyponatremia DVT prophylaxis: HEPARIN GI prophylaxis: N/A Antibiotics: N/A Bowel Regimen: N/A Diet: Renal diet, high protein ensure, Banatrol Plus Lines: Peripheral IV Code status: Full code Case discussed with my senior resident Dr. Delong Case discussed with my attending Dr. Maury Persaud DO PGY 1 Attending Provider Attestation/Addendum I have seen and examined the patient. I was physically present for the [place] portions of the services provided including history, physical exam, diagnosis, treatment plans and orders. I agree with assessment and plan of care as documented by residents. Even though this this note was carefully revised there may still be minor errors in slunk skinner due to voice recognition software. Logan Mendiola MD
--- NOTE | 2025-09-23 14:57 | PC.SS ---
Plan for GOC for TPN intermediate card tender with pt son Dionisio Samuel [phone] via phone, Team A, [employer] and CALL OR CONTACT [facility]. LTAC not an option as pt does not meet medicare guidlines for LTAC placement. (Requires ICU stay) Home Health an option for TPN per [place] RN Isabel, family needs to be in agreement with HH as they will need to help pt and monitor her. No other options for intermediate card tender TPN at SNF
[2025-09-23 16:32] LABS: Sodium 130 mMol/L (136-145)
[2025-09-23 21:20] LABS: Sodium 127 mMol/L (136-145)
[2025-09-24] VITALS (8 sets, daily range): BP systolic 92–101; BP diastolic 58–67; PULSE 80–94; RESP 16; TEMP 35.9–37.2; O2SAT 94–97
[2025-09-24] MEDS: LOPERAMIDE 2 MG CAPSULE 4 MG PO ×2 (00:39→05:20)
[2025-09-24 04:46] LABS: Basophils # (Auto) 0.1 Thou/mm3 (0.0-0.2); Basophils % (Auto) 1 % (0-2.5); Eosinophils # (Auto) 0.4 Thou/mm3 (0.0-0.5); Eosinophils % (Auto) 4 % (0-10); Hematocrit 35.6 % (36.0-46.0); Hemoglobin 12.1 g/dL (12.0-16.0); Immature Granulocytes Auto 0.04 Thou/mm3 (0.00-0.00); Lymphocytes # (Auto) 2.5 Thou/mm3 (1.0-4.8); Lymphocytes % (Auto) 25 % (10-50); Mean Corpuscular HGB Conc 34.0 g/dl (31.0-37.0); Mean Corpuscular Hemoglobin 29.2 pg (25.0-35.0); Mean Corpuscular Volume 86 fL (80-100); Monocytes # (Auto) 0.8 Thou/mm3 (0.0-0.8); Monocytes % (Auto) 8 % (0-12); Neutrophils # (Auto) 6.1 Thou/mm3 (1.8-7.7); Neutrophils % (Auto) 62 % (37-80); Nucleated Red Blood Cell # 0.00 Thou/mm3 (0.00-0.00); Nucleated Red Blood Cell % 0 /100 WBC (0); Platelet Count 318 Thou/mm3 (140-440); RDW Standard Deviation 43.0 fL (36.4-46.3); Red Blood Count 4.15 Miln/mm3 (4.00-5.20); White Blood Count 9.9 Thou/mm3 (3.6-11.0)
[2025-09-24 05:19] LABS: Alanine Aminotransferase 42 U/L (10-49); Albumin, Serum 4.1 gm/dL (3.4-4.8); Albumin/Globulin Ratio 1.2 (1.2-2.2); Alkaline Phosphatase 256 U/L (46-116); Anion Gap 11 (7-16); Aspartate Amino Transferase 32 U/L (0-34); BUN/Creatinine Ratio 23 Ratio (12-20); Bilirubin,Total 0.4 mg/dL (0.3-1.2); Blood Urea Nitrogen 25 mg/dL (9-23); Calcium 9.5 mg/dL (8.3-10.6); Calcium (Corrected) 9.5 mg/dL (8.5-10.1); Carbon Dioxide 26.0 mMol/L (20.0-31.0); Chloride 92 mMol/L (98-107); Creatinine (Component) 1.1 mg/dL (0.6-1.3); Estimated Creatinine Clearance 36.1 mL/min (>60); Globulin 3.4 gm/dL (2.3-3.5); Glucose 107 mg/dL (74-106); Magnesium 2.2 mg/dL (1.6-2.6); Osmolality,Calculated 263 (275-295); Phosphorous 2.6 mg/dL (2.4-5.1); Potassium 3.8 mMol/L (3.4-5.1); Sodium 129 mMol/L (136-145); Total Protein 7.5 gm/dL (5.7-8.2); eGFR 56 See Note
[2025-09-24] MEDS: MIRTAZAPINE 15 MG TABLET PO (09:15)
[2025-09-24] MEDS: FOLIC ACID 1 MG TABLET PO (09:15)
[2025-09-24] MEDS: HEPARIN SOD INJ 5000 UNIT/ML VIAL SC ×2 (09:15→21:24)
[2025-09-24] MEDS: THIAMINE 100 MG TABLET PO (09:15)
[2025-09-24] MEDS: NYSTATIN PWD 15 GM BTL TOP (09:16)
--- NOTE | 2025-09-24 11:09 | ESPR_ITS ---
Documentation for date of: 09/24/25 Subjective Subjective Interval history: Informant son at bedside. Chart review done. Patient's son not quite sure on the medical/surgical history. Discharged last month and discharge diagnoses included-- #Subacute illiostomy leak #Multiple small bowel lacerations s/p ex lap and resection of small bowl with anastomosis and diverting ileostomy 08/11 #Abdominal abscess s/p IR drainage 08/10 #Pelvic abscess s/p IR drainage 08/09 #Invasive adenocarcinoma of ascending colon s/p R hemicolectomy with ilio transverse anastomosis 07/21 #Calorie protein Malnutrition #Short bowel syndrome vs. #high-output ileostomy #Nonanion gap metabolic acidosis #UTI, Enterobacter aerogenes #Electrolyte abnormalities #Moderate Hypovolemic Hypotonic Hyponatremia - #Hyperphosphatemia - #Hypercalcemia - #STEPH #Normocytic anemia - #Hypotension #Chronic elevated Alk phos Patient comes back with the same diagnosis of acute renal failure, electrolyte imbalance with high output ileostomy losses. Seen in the emergency department. Sick looking. Home medications included vitamin D, B12, Pepcid, folic acid, Dilaudid, mirtazapine, multivitamin, thiamine, zinc. Blood pressure 103/75, heart rate 110, afebrile CBC normal except platelets 473.Sodium 117, potassium 5.7, bicarbonate 20.8, BUN 63, creatinine 3.5, GFR 14. Also noted 10 days ago her creatinine was 0.5. Calcium 10.3, magnesium 1.6, AST 103, ALT 100, alk phos 361, albumin 4.8, globulin 4.5, lipase 64. Urinalysis shows significant pyuria, urine sodium less than 10 09/24/2025 patient still having a lot of ileostomy losses. Just electrolytes. Review of Systems Review of Systems Narrative Review of Systems: CONSTITUTIONAL: Complaining of significant fatigue CARDIOVASCULAR: Patient denies any chest pain, shortness of breath, swelling in the lower extremities. PULMONARY: Patient denies any shortness of breath, cough. GASTROINTESTINAL: Complaining of abdominal discomfort from the ileostomy site GENITOURINARY: Patient denies any urinary symptoms of burning or frequency or hematuria, denies any form in the urine. SKIN: Irritation noted around the ileostomy site MUSCULOSKELETAL: Gait imbalance NEUROLOGICAL: Denies any neurological problems of strokes, seizures or confusion. Denies any memory problems. PSYCHIATRIC: admits depression Exam Vital Signs Temp Pulse Resp BP Pulse Ox O2 Del Method 36.3 C 81 16 96/64 95 Room Air 09/24/25 04:00 09/24/25 04:00 09/24/25 04:00 09/24/25 04:00 09/24/25 04:00 09/24/25 04:00 Narrative Exam Physical Exam General: Awake and in no acute distress. Conversational. Cachectic. HEENT: Patches of hair loss. Normocephalic, atraumatic, mucous membranes moist. Heart: Regular rate and rhythm, normal S1 and S2, no murmurs. Lungs: Clear to auscultation with no wheezing or crackles. Abdomen: Soft, nondistended, nontender, positive bowel sounds. No guarding or rebound tenderness. Diverticulum ileostomy with redness around the ileostomy site. Bag fluid with liquidy stool Neurologic: Alert and oriented x3, no gross neurological deficit, and patient able to move all 4 extremities. Extremities: No edema. Skin: Erythema around ileostomy site. No ecchymoses. Objective Labs 09/26/25 05:23 09/26/25 18:39 Labs: Laboratory Results - last 24 hr 09/23/25 09/23/25 09/24/25 16:11 20:35 03:45 WBC 9.9 RBC 4.15 Hgb 12.1 Hct 35.6 L MCV 86 MCH 29.2 MCHC 34.0 RDW Std Deviation 43.0 Plt Count 318 Neut % (Auto) 62 Lymph % (Auto) 25 [place] % (Auto) 8 Eos % (Auto) 4 Baso % (Auto) 1 Neut # (Auto) 6.1 Lymph # (Auto) 2.5 [place] # (Auto) 0.8 Eos # (Auto) 0.4 Baso # (Auto) 0.1 Immature Gran # (Auto) 0.04 H Absolute Nucleated RBC 0.00 Immature Gran % 0 Nucleated RBC % 0 Sodium 130 L 127 L 129 L Potassium Chloride Carbon Dioxide Anion Gap BUN Creatinine Estim Creat Clear Calc eGFR BUN/Creatinine Ratio Glucose Calculated Osmolality Calcium Corrected Calcium Phosphorus Magnesium Total Bilirubin AST ALT Alkaline Phosphatase Total Protein Albumin Globulin Albumin/Globulin Ratio 09/24/25 03:45 WBC RBC Hgb Hct MCV MCH MCHC RDW Std Deviation Plt Count Neut % (Auto) Lymph % (Auto) [place] % (Auto) Eos % (Auto) Baso % (Auto) Neut # (Auto) Lymph # (Auto) [place] # (Auto) Eos # (Auto) Baso # (Auto) Immature Gran # (Auto) Absolute Nucleated RBC Immature Gran % Nucleated RBC % Sodium Cancelled Potassium 3.8 Chloride 92 L Carbon Dioxide 26.0 Anion Gap 11 BUN 25 H Creatinine 1.1 Estim Creat Clear Calc 36.1 L eGFR 56 L BUN/Creatinine Ratio 23 H Glucose 107 H Calculated Osmolality 263 L Calcium 9.5 Corrected Calcium 9.5 Phosphorus 2.6 Magnesium 2.2 Total Bilirubin 0.4 AST 32 ALT 42 Alkaline Phosphatase 256 H Total Protein 7.5 Albumin 4.1 Globulin 3.4 Albumin/Globulin Ratio 1.2 Assessment & Plan Assessment and plan (1) Acute renal failure: Status: Acute Additional Assessment & Plan Additional Plan: # Acute renal failure secondary to prerenal azotemia from high output ileostomy losses. Agree with continuing IV fluids for now. #Multiple small bowel lacerations s/p ex lap and resection of small bowl with anastomosis and diverting ileostomy 08/11 High output ileostomy losses. Leading to electrolyte imbalance #Invasive adenocarcinoma of ascending colon s/p R hemicolectomy with ilio transverse anastomosis 07/21 #Calorie protein Malnutrition #anion gap metabolic acidosis -secondary to prerenal azotemia #Hypovolemic Hypotonic Hyponatremia -continue with normal saline #Hyperphosphatemia - #Hypercalcemia - #Normocytic anemia - #Hypotension #Chronic elevated Alk phos - Will monitor renal function, electrolytes closely. Thank you Logan for allowing me to participate in the care of Ms. Washington Quality - progress note Quality Measures Quality Measures: VTE prophylaxis Reason for Continued Stay Reason for Continued Stay: further monitoring
[2025-09-24] MEDS: LOPERAMIDE 2 MG CAPSULE 8 MG PO ×2 (11:42→17:42)
--- NOTE | 2025-09-24 12:43 | ESPR_ITS ---
Documentation for date of: 09/24/25 Subjective - Hospitalist Subjective Interval history: No acute overnight events. Patient seen and examined at bedside. Appears comfortable and denies any new complaints. Had leakage of ileostomy bag, replaced by wound care nurse. Continues to have liquidy output in the ileostomy bag, we will increase loperamide dosing to 8 mg 4 times daily. Also added Zofran for nausea. Sodium level remained stable at 129. Discussed with dietitian, patient continues to have oral intake but unable to meet her goal. We will start her on PPN and monitor closely for stool output with loperamide. If patient does not respond to increasing dose of loperamide, we will plan for PICC line on Saturday for TPN. Vital signs are stable, kidney function is improving. Review of Systems Review of Systems Systems Reviewed: All systems reviewed, normal except as documented Exam Vital Signs Temp Pulse Resp BP Pulse Ox O2 Del Method 96.6 F L 86 16 92/65 96 Room Air 09/24/25 15:40 09/24/25 16:00 09/24/25 15:40 09/24/25 15:40 09/24/25 15:40 09/24/25 15:40 Narrative GENERAL: W frail elderly female, in no acute distress, laying comfortably on bed HEENT: Normocephalic, atraumatic, extraocular movements intact, pupils equal and reactive to light NECK: Supple, no JVD or bruits. CARDIOVASULAR: RRR, S1 and S2 heard, without murmur, rubs or gallops. LUNGS/CHEST: Clear to auscultation bilaterally. No rails, rhonchi, or wheezing. ABDOMEN: Soft, nontender, with normal bowel sounds. Transverse surgical scar, no dehiscence, mild surrounding erythema appreciated. Ileostomy bag in place draining liquid content EXTREMITIES: No edema, clubbing or cyanosis. No joint deformity. Able to move all limbs. SKIN: Warm and dry without rashes. NEURO: Alert, awake and oriented x4. Cranial nerves: II through XII grossly intact. normal speech, able to answer questions and follow commands appropriately, strength and sensation normal and equal bilaterally, no focal neurological deficits PSYCHIATRIC: Normal mood and affect. Objective - Hospitalist Labs Diagram: 09/24/25 03:45 09/24/25 03:45 Labs: Laboratory Results - last 24 hr 09/24/25 09/24/25 03:45 03:45 WBC 9.9 RBC 4.15 Hgb 12.1 Hct 35.6 L MCV 86 MCH 29.2 MCHC 34.0 RDW Std Deviation 43.0 Plt Count 318 Neut % (Auto) 62 Lymph % (Auto) 25 [place] % (Auto) 8 Eos % (Auto) 4 Baso % (Auto) 1 Neut # (Auto) 6.1 Lymph # (Auto) 2.5 [place] # (Auto) 0.8 Eos # (Auto) 0.4 Baso # (Auto) 0.1 Immature Gran # (Auto) 0.04 H Absolute Nucleated RBC 0.00 Immature Gran % 0 Nucleated RBC % 0 Sodium 129 L Cancelled Potassium 3.8 Chloride 92 L Carbon Dioxide 26.0 Anion Gap 11 BUN 25 H Creatinine 1.1 Estim Creat Clear Calc 36.1 L eGFR 56 L BUN/Creatinine Ratio 23 H Glucose 107 H Calculated Osmolality 263 L Calcium 9.5 Corrected Calcium 9.5 Phosphorus 2.6 Magnesium 2.2 Total Bilirubin 0.4 AST 32 ALT 42 Alkaline Phosphatase 256 H Total Protein 7.5 Albumin 4.1 Globulin 3.4 Albumin/Globulin Ratio 1.2 Assessment & Plan Patient Synopsis Mrs. Washington is a [place] speaking, 65F with history of invasive adenocarcinoma of the ascending colon s/p right hemicolectomy with ileotransverse colostomy on 07/21/25 presented from SNF for hyperkelemia and hyponatremia. #Short gut syndrome #High ileostomy output #Hx of invasive adenocarcinoma of the ascending colon s/p right hemicolectomy with ileotransverse colostomy (07/21/25) #Calorie protein Malnutrition Per prior note, pt has significant weight loss and not meeting daily nutritional requirement. Plan: - Dietitian consulted, recs 6 small meals, renal, Ensure Plus 8oz, Banatrol Plus - Continue Dronabinol 5mg PO BID - Started on PPN - Increase loperamide dosing to 8 mg every 6 hours #Pre-renal STEPH likely secondary to dehydration from high ileostomy output - improving Initial BUN to Ballet Soloist ratio > 20. Plan: - nephrology consulted, appreciate recs. --> added Bicitra 30mL PO BID. Recs sodium bicarb tabs for discharge. - monitor urine output - daily labs, monitor chemistry - renal dose med, avoid nephrotoxin - avoid contrast or offending mediations - Kidney function improving #Eletroclyte abnormalities #Hyperkelemia #Hyponatremia #Hyperphosphatemia Consistent with short gut syndrome with STEPH from high ileostomy output Plan: - Careful correction of Na to avoid Osmotic Demyelination Syndrome (ODS) - Hyperkalemic cocktail given in ED (1000 mg of calcium gluconate IV, 1 amp of D50 IV, 5 units of regular insulin IV and 10 mg of continuous nebulized albuterol) - Kayexelate 30gm x 1 (09/21/25) - We will continue to monitor closely for electrolyte imbalances and correct as needed #Anion gap metabolic acidosis - resolving 09/21/25: Bicarb 18, AG 17. BUN 63 Likely secondary to GI losses vs uremia - Lactate 09/22/25 peaked at 3.5, downtrending - Likely resolve with fluid resuscitation Health maintenance Dispo: Failure to thrive, started on PPN DVT prophylaxis: HEPARIN Diet: Regular diet, high protein ensure, Banatrol Plus, PPN Code status: Full code Time Spent with Patient Time: Total time spent is greater than 50% in coordination of care (as documented) at patient's floor/unit and/or counseling patient: Time with patient: Greater than 35 minutes Reason for Continued Stay Reason for continued stay: further monitoring Quality Measures Quality Measures VTE prophylaxis Advance care planning discussed with:: patient
[2025-09-24] MEDS: FAT EMULSIONS 20% IV 500 ML 32 ML IV (17:42)
[2025-09-25] VITALS (7 sets, daily range): BP systolic 80–100; BP diastolic 51–68; PULSE 69–112; RESP 16–20; TEMP 36.2–37.2; O2SAT 93–97
[2025-09-25 05:42] LABS: Basophils # (Auto) 0.1 Thou/mm3 (0.0-0.2); Basophils % (Auto) 1 % (0-2.5); Eosinophils # (Auto) 0.7 Thou/mm3 (0.0-0.5); Eosinophils % (Auto) 7 % (0-10); Hematocrit 36.6 % (36.0-46.0); Hemoglobin 13.0 g/dL (12.0-16.0); Immature Granulocytes Auto 0.08 Thou/mm3 (0.00-0.00); Lymphocytes # (Auto) 3.3 Thou/mm3 (1.0-4.8); Lymphocytes % (Auto) 35 % (10-50); Mean Corpuscular HGB Conc 35.5 g/dl (31.0-37.0); Mean Corpuscular Hemoglobin 30.1 pg (25.0-35.0); Mean Corpuscular Volume 85 fL (80-100); Monocytes # (Auto) 0.6 Thou/mm3 (0.0-0.8); Monocytes % (Auto) 6 % (0-12); Neutrophils # (Auto) 4.9 Thou/mm3 (1.8-7.7); Neutrophils % (Auto) 50 % (37-80); Nucleated Red Blood Cell # 0.00 Thou/mm3 (0.00-0.00); Nucleated Red Blood Cell % 0 /100 WBC (0); Platelet Count 368 Thou/mm3 (140-440); RDW Standard Deviation 41.6 fL (36.4-46.3); Red Blood Count 4.32 Miln/mm3 (4.00-5.20); White Blood Count 9.6 Thou/mm3 (3.6-11.0)
[2025-09-25] MEDS: LOPERAMIDE 2 MG CAPSULE 8 MG PO ×3 (05:43→09:41)
[2025-09-25 05:56] LABS: Alanine Aminotransferase 33 U/L (10-49); Albumin, Serum 4.2 gm/dL (3.4-4.8); Albumin/Globulin Ratio 1.2 (1.2-2.2); Alkaline Phosphatase 257 U/L (46-116); Anion Gap 12 (7-16); Aspartate Amino Transferase 32 U/L (0-34); BUN/Creatinine Ratio 20 Ratio (12-20); Bilirubin,Total 0.3 mg/dL (0.3-1.2); Blood Urea Nitrogen 40 mg/dL (9-23); Calcium 9.4 mg/dL (8.3-10.6); Calcium (Corrected) 9.4 mg/dL (8.5-10.1); Carbon Dioxide 26.1 mMol/L (20.0-31.0); Cardiac Risk Estimate 3.2 RATIO (3.7-5.6); Chloride 83 mMol/L (98-107); Cholesterol 148 mg/dL (132-200); Creatinine (Component) 2.0 mg/dL (0.6-1.3); Estimated Creatinine Clearance 18.7 mL/min (>60); Globulin 3.6 gm/dL (2.3-3.5); Glucose 143 mg/dL (74-106); HDL Cholesterol 46 mg/dL (40-60); LDL Cholesterol,Calculated 33 mg/dL (0-130); Magnesium 2.1 mg/dL (1.6-2.6); Osmolality,Calculated 255 (275-295); Phosphorous 3.5 mg/dL (2.4-5.1); Potassium 4.2 mMol/L (3.4-5.1); Sodium 121 mMol/L (136-145); Total Protein 7.8 gm/dL (5.7-8.2); Triglycerides 345 mg/dL (30-150); eGFR 27 See Note
[2025-09-25] MEDS: FOLIC ACID 1 MG TABLET PO (08:32)
[2025-09-25] MEDS: MIRTAZAPINE 15 MG TABLET PO (08:32)
[2025-09-25] MEDS: THIAMINE 100 MG TABLET PO (08:32)
[2025-09-25] MEDS: HEPARIN SOD INJ 5000 UNIT/ML VIAL SC ×2 (08:33→20:46)
--- NOTE | 2025-09-25 08:47 | ESPR_ITS ---
<Statement entered by Jonathan Purvis MD - 09/25/25 14:04> Patient was examined and case was reviewed with team including attending physician. Note reviewed, I agree with most of its contents and agree with the patient's care as documented by Dr. Persaud Patient seen today at the bedside found awake, alert, orientedx3. No overnight events reported. Vital signs and labs reviewed. Currently on PPN. Denies any complaints at this time is requesting something for sleep as it has been difficult for her to sleep in the past 2 days. Continues to have diffuse watery stools. Will uptitrate loperamide and bannatrol. Sodium currently trending down, Nephrology recommended salt tablets at this time, will continue with Na checks q4 hours. Will consider hypertonic saline if she starts developing symptoms, possibly ICU upgrade. Case discussed with my attending Dr. Maury Purvis MD PGY-2 Disclaimer: Despite multiple revisions, due to the dictation software being used, the document bellow may not be free of grammatical errors including phonetic/typographic errors. However, this does not deter from our commitment to providing health care in the patient's best interest in mind. Documentation for date of: 09/25/25 Subjective Subjective Interval history: Mrs. Washington is a Thai speaking, 65F with history of prediabetes and invasive adenocarcinoma of the ascending colon s/p right hemicolectomy with ileotransverse colostomy on 07/21/25 presented from SNF for hyperkelemia and hyponatremia, likely secondary to STEPH from short gut syndrome. 09/22/25: Overnight, ~800mL of D5W was given to avoid rapid correction of Na from 117 to 124. Na level this morning 119 with UOP ~1L past 24H. Patient seen and examined at bedside, no acute complaint, resting comfortably in bed. Still not much appetite, increased Marinol from 2.5mg to 5mg PO BID today. Nephrology recommended Bicitra 30mL PO BID, and patient should be discharged with sodium carbonate tablet due to high ileostomy output. Educational Director level improved from 3.2 to 2.6 today. Plan of care discussed with patient, will continue NaCl 0.9% @ rate of 80ml/hr with Na check Q4H to avoid rapid correction. 09/23/25: NAOE. Na level 126 this morning and Educational Director level improved to 1.4. Ileostomy output 1L. Will continue NaCl 0.9% @ rate of 125ml/hr today with frequent Na level check. Patient is clinically stable for discharge from nephrology standpoint if sodium continues to improve. However, given patient's recent dramatic weight loss, high ileostomy output, and frequent readmission, a discussion was held today at bedside via phone with patient and patient's son regarding the potential need to start patient on terminal makeup operator TPN to support patient's nutrition status. At this time, the best option for disposition is home health with TPN. 09/24/25: No acute overnight events. Patient seen and examined at bedside. Appears comfortable and denies any new complaints. Had leakage of ileostomy bag, replaced by wound care nurse. Continues to have liquidy output in the ileostomy bag, we will increase loperamide dosing to 8 mg 4 times daily. Also added Zofran for nausea. Sodium level remained stable at 129. Discussed with dietitian, patient continues to have oral intake but unable to meet her goal. We will start her on PPN and monitor closely for stool output with loperamide. If patient does not respond to increasing dose of loperamide, we will plan for PICC line on Saturday for TPN. Vital signs are stable, kidney function is improving. 09/25/25: NAOE. Na decreased back to 121. Creatinine increased to 2. Salt tablet added. On exam, patient continues to be asymtomatic, on PPN. Loperamide increased to 16mg Q6H and Banatrol Plus to QID now. If patient continues to have high output from ileostomy bag, a PICC line may be needed on Saturday to start her on TPN. Exam Vital Signs Temp Pulse Resp BP Pulse Ox O2 Del Method 98.9 F 73 16 97/68 97 Room Air 09/25/25 04:00 09/25/25 04:00 09/25/25 04:00 09/25/25 04:00 09/25/25 04:00 09/25/25 04:00 Narrative Exam General: Awake and in no acute distress. A/O x 3. Conversational. HEENT: Normocephalic, atraumatic Heart: Regular rate and rhythm. Lungs: Clear to auscultation with no wheezing or crackles. Abdomen: Soft, nondistended, nontender. No guarding or rebound tenderness. Transverse surgical scar d/c/i, no dehiscence, mild surrounding erythema appreciated. Ileostomy bag in place draining more solidify contents, but still loose. Neurologic: Alert and oriented x3, no gross neurological deficit. Extremities: Moving all extremities. Skin: Dry, clean, intact. No ecchymosis Objective Labs 09/25/25 05:15 09/25/25 17:05 Labs: Laboratory Results - last 24 hr 09/25/25 05:15 WBC 9.6 RBC 4.32 Hgb 13.0 Hct 36.6 MCV 85 MCH 30.1 MCHC 35.5 RDW Std Deviation 41.6 Plt Count 368 D Neut % (Auto) 50 Lymph % (Auto) 35 [place] % (Auto) 6 Eos % (Auto) 7 Baso % (Auto) 1 Neut # (Auto) 4.9 Lymph # (Auto) 3.3 [place] # (Auto) 0.6 Eos # (Auto) 0.7 H Baso # (Auto) 0.1 Immature Gran # (Auto) 0.08 H Absolute Nucleated RBC 0.00 Immature Gran % 1 H Nucleated RBC % 0 Sodium 121 L Potassium 4.2 Chloride 83 L Carbon Dioxide 26.1 Anion Gap 12 BUN 40 H Creatinine 2.0 H D Estim Creat Clear Calc 18.7 L eGFR 27 L BUN/Creatinine Ratio 20 Glucose 143 H Calculated Osmolality 255 L Calcium 9.4 Corrected Calcium 9.4 Phosphorus 3.5 Magnesium 2.1 Total Bilirubin 0.3 AST 32 ALT 33 Alkaline Phosphatase 257 H Total Protein 7.8 Albumin 4.2 Globulin 3.6 H Albumin/Globulin Ratio 1.2 Triglycerides 345 H Cholesterol 148 LDL Cholesterol, Calc 33 HDL Cholesterol 46 Cholesterol/HDL Ratio 3.2 L Quality Measures Quality Measures VTE prophylaxis Advance care planning discussed with:: patient Assessment & Plan Assessment Current Active Medications: Generic Name Dose Route Start Last Admin Trade Name Freq PRN Reason Stop Dose Admin Acetaminophen 650 mg 09/21/25 15:15 Acetaminophen 325 Mg Tablet PO 10/21/25 15:14 Q6H PRN PAIN SCALE 1-3 (mild Cyanocobalamin 250 mcg 09/22/25 09:00 09/25/25 08:32 Cyanocobalamin 500 Mcg Tablet PO 10/22/25 08:59 250 mcg DAILY SHAWNA Administration Dextrose 25 ml 09/24/25 11:59 Dextrose 50%-Water Inj 50 Ml Syringe IV 10/24/25 11:58 Q15MIN PRN BG 50-70 responsive npo pt Dextrose 50 ml 09/24/25 11:59 Dextrose 50%-Water Inj 50 Ml Syringe IV 10/24/25 11:58 Q15MIN PRN BG <50 OR BG <70 & pt unresponsive Dronabinol 5 mg 09/22/25 21:00 09/25/25 08:33 Dronabinol 2.5 Mg Capsule PO 10/22/25 20:59 5 mg BID SHAWNA Administration Folic Acid 1 mg 09/22/25 09:00 09/25/25 08:32 Folic Acid 1 Mg Tablet PO 10/22/25 08:59 1 mg DAILY SHAWNA Administration Glucagon 1 mg 09/24/25 11:59 Glucagon Inj 1 Mg Vial IM Q15MIN PRN BG <70, and no IV access Heparin Sodium (Porcine) 5,000 unit 09/21/25 21:00 09/25/25 08:33 Heparin Sod Inj 5000 Unit/Ml Vial SC 10/05/25 20:59 5,000 unit BID SHAWNA Administration Hydromorphone HCl 2 mg 09/21/25 15:21 09/23/25 12:40 Hydromorphone Hcl 2 Mg Tablet PO 09/26/25 15:20 2 mg Q4H PRN Administration pain (7-10) Sodium Chloride 40 meq/ 2,020 mls @ 45 mls/hr 09/24/25 18:00 09/24/25 17:42 Multivitamins/Minerals 10 ml/ IV 09/25/25 17:59 45 mls/hr Amino Acids/Electrolytes/ .Q24H SHAWNA Administration Dextrose Fat Emulsion Intravenous 500 mls @ 32 mls/hr 09/24/25 18:00 09/24/25 17:42 Intralipid 20% Iv IV 10/24/25 17:59 32 mls/hr [email or web address] SHAWNA Administration Insulin Human Regular 0 unit 09/24/25 18:00 09/25/25 05:41 Insulin Hum Regular 1 Unit/0.01 Ml (Per Unit) SC 10/24/25 17:59 Not Given Q6HR [facility] Protocol Loperamide HCl 8 mg 09/24/25 12:00 09/25/25 05:43 Loperamide 2 Mg Capsule PO 10/01/25 11:59 8 mg Q6HR SHAWNA Administration Mirtazapine 15 mg 09/22/25 09:00 09/25/25 08:32 Mirtazapine 15 Mg Tablet PO 10/22/25 08:59 15 mg QDAY SHAWNA Administration Ondansetron HCl 4 mg 09/24/25 11:12 Ondansetron Inj 2 Mg/Ml Inj 2 Ml IVP 10/24/25 11:11 Q6HR PRN NAUSEA OR VOMITING Protocol Oxycodone/Acetaminophen 1 tab 09/21/25 15:15 09/23/25 17:11 Oxycodone/Apap 5/325 Tablet PO 09/26/25 15:14 1 tab Q6H PRN Administration PAIN SCALE 4-6 (Moderate Sodium Chloride 3 ml 09/21/25 13:58 Sodium Chloride Rt Dania 0.9% 3 Ml Nebu INH 10/21/25 13:57 PRN PRN SOLN Thiamine HCl 100 mg 09/22/25 09:00 09/25/25 08:32 Thiamine 100 Mg Tablet PO 10/22/25 08:59 100 mg DAILY SHAWNA Administration Plan Mrs. Washington is a Thai speaking, 65F with history of invasive adenocarcinoma of the ascending colon s/p right hemicolectomy with ileotransverse colostomy on 07/21/25 presented from SNF for hyperkelemia and hyponatremia. #Short gut syndrome #High ileostomy output #Hx of invasive adenocarcinoma of the ascending colon s/p right hemicolectomy with ileotransverse colostomy (07/21/25) #Calorie protein Malnutrition Per prior note, pt has significant weight loss and not meeting daily nutritional requirement. Plan: - Dietitian consulted, recs 6 small meals, renal, Ensure Plus 8oz, Banatrol Plus - Continue Dronabinol 5mg PO BID - May require terminal makeup operator TPN if not meeting nutritional goal, likely PICC line Saturday if continue high output from ileostomy. - Continue PPN (09/24 ~) #Pre-renal STEPH likely secondary to dehydration from high ileostomy output - improving Initial BUN to Educational Director ratio > 20. Plan: - nephrology consulted, appreciate recs. --> added Bicitra 30mL PO BID. Recs sodium bicarb tabs for discharge. - Held NaCl 0.9% today since patient on PPN, Q4H Na check. - monitor urine output - daily labs, monitor chemistry - renal dose med, avoid nephrotoxin - avoid contrast or offending mediations #Eletroclyte abnormalities #Hyperkelemia #Hyponatremia #Hyperphosphatemia Consistent with short gut syndrome with STEPH from high ileostomy output Plan: - Careful correction of Na to avoid Osmotic Demyelination Syndrome (ODS) - Hyperkalemic cocktail given in ED (1000 mg of calcium gluconate IV, 1 amp of D50 IV, 5 units of regular insulin IV and 10 mg of continuous nebulized albuterol) - Kayexelate 30gm x 1 (09/21/25) - Na level Q4H - Recheck K level in AM, if still elevated, may consider another hyperkelemic cocktail. #Anion gap metabolic acidosis - resolved 09/21/25: Bicarb 18, AG 17. BUN 63 Likely secondary to GI losses vs uremia - Lactate 09/22/25 peaked at 3.5, downtrending - Likely resolve with fluid resuscitation Health maintenance Dispo: pending resolution of STEPH, hyperkelemia, hyponatremia DVT prophylaxis: HEPARIN GI prophylaxis: N/A Antibiotics: N/A Bowel Regimen: N/A Diet: 6 small meals, high protein ensure, Banatrol Plus QID. On PPN Lines: Peripheral IV Code status: Full code Case discussed with my senior resident Dr. Delong Case discussed with my attending Dr. Maury Persaud DO PGY 1 Attending Provider Attestation/Addendum I have seen and examined the patient. I was physically present for the [place] portions of the services provided including history, physical exam, diagnosis, treatment plans and orders. I agree with assessment and plan of care as documented by residents. Even though this this note was carefully revised there may still be minor errors in aviation electrician due to voice recognition software. Logan Mendiola MD
[2025-09-25 10:08] LABS: Sodium 120 mMol/L (136-145)
--- NOTE | 2025-09-25 10:24 | PD.RESPRO ---
Documentation for date of: 09/25/25 Subjective Subjective Interval history: History of present illness: Patient comes back with the same diagnosis of acute renal failure, electrolyte imbalance with high output ileostomy losses. Seen in the emergency department. Sick looking. Home medications included vitamin D, B12, Pepcid, folic acid, Dilaudid, mirtazapine, multivitamin, thiamine, zinc. Blood pressure 103/75, heart rate 110, afebrile CBC normal except platelets 473.Sodium 117, potassium 5.7, bicarbonate 20.8, BUN 63, creatinine 3.5, GFR 14. Also noted 10 days ago her creatinine was 0.5. Calcium 10.3, magnesium 1.6, AST 103, ALT 100, alk phos 361, albumin 4.8, globulin 4.5, lipase 64. Urinalysis shows significant pyuria, urine sodium less than 10 Patient admitted for hyperkalemia in setting of prerenal STEPH secondary to high ileostomy output. Nephrology consulted for management of hyperkalemia and STEPH. 09/22/25: Patient seen and assessed at bedside. Reports she is feeling better. Overnight, normal saline stopped due to overcorrection of sodium, improved to 123. Dropped back to 119, restart IV NS at 125 mL/h. Goal sodium 125- 127, sodium check q6hr. potassium 4.7, chloride 86, bicarb 18.3, BUN 58, creatinine 2.6, GFR 28. A1c 6.0. Lactic acid 2.3. Calcium 9.5, phosphorus 4.8, magnesium 1.5, repleted. Still has mildly elevated liver enzymes. Started Bicitra due to GI bicarb losses, recommend discharging with sodium bicarb tablets. 09/23/25: Patient seen and assessed at bedside. Doing well. UOP 1.4L. Sodium 126, continue NS with goal 132. Potassium 4.0, chloride 92, bicarb 22.5, BUN 33, creatinine 1.4, GFR 42. Continue NS at 125 cc/hr and Bicitra. Patient is medically stable for discharge from nephrology standpoint if sodium continues to improve. Send with sodium bicarb tablets. 09/24/25: Patient seen and assessed at bedside. Had leakage of ileostomy bag. Sodium 129, started on PPN by primary team. Discontinue Bicitra as bicarb improved. 09/25/25: Patient seen and assessed at bedside. Reporting pain around ileostomy site, erythematous and tender. No leakage noted. Total output 1.5 L (700 cc stool, 800 cc urine). Sodium 121, potassium 4.2, chloride 83, BUN 40, creatinine 2.0 (from 1.1). Start on sodium chloride tablets 1g, encouraged oral hydration. On PPN with sodium 40mEq additive since yesterday. Continue to monitor sodium q6hr, goal 127-129. Exam Vital Signs Temp Pulse Resp BP Pulse Ox O2 Del Method 97.3 F 84 18 100/57 L 97 Room Air 09/25/25 08:00 09/25/25 08:00 09/25/25 08:00 09/25/25 08:00 09/25/25 08:00 09/25/25 08:00 Narrative Exam Physical Exam General: Awake and in no acute distress. Conversational. Cachectic. HEENT: Patches of hair loss. Normocephalic, atraumatic, mucous membranes moist. Heart: Regular rate and rhythm, normal S1 and S2, no murmurs. Lungs: Clear to auscultation with no wheezing or crackles. Abdomen: Soft, nondistended, nontender, positive bowel sounds. No guarding or rebound tenderness. Diverticulum ileostomy with redness around the ileostomy site. Bag fluid with liquidy stool Neurologic: Alert and oriented x3, no gross neurological deficit, and patient able to move all 4 extremities. Extremities: No edema. Skin: Erythema around ileostomy site. No ecchymoses. Objective Labs 09/26/25 05:23 09/26/25 18:39 Labs: Laboratory Results - last 24 hr 09/25/25 09/25/25 05:15 09:13 WBC 9.6 RBC 4.32 Hgb 13.0 Hct 36.6 MCV 85 MCH 30.1 MCHC 35.5 RDW Std Deviation 41.6 Plt Count 368 D Neut % (Auto) 50 Lymph % (Auto) 35 [place] % (Auto) 6 Eos % (Auto) 7 Baso % (Auto) 1 Neut # (Auto) 4.9 Lymph # (Auto) 3.3 [place] # (Auto) 0.6 Eos # (Auto) 0.7 H Baso # (Auto) 0.1 Immature Gran # (Auto) 0.08 H Absolute Nucleated RBC 0.00 Immature Gran % 1 H Nucleated RBC % 0 Sodium 121 L 120 L Potassium 4.2 Chloride 83 L Carbon Dioxide 26.1 Anion Gap 12 BUN 40 H Creatinine 2.0 H D Estim Creat Clear Calc 18.7 L eGFR 27 L BUN/Creatinine Ratio 20 Glucose 143 H Calculated Osmolality 255 L Calcium 9.4 Corrected Calcium 9.4 Phosphorus 3.5 Magnesium 2.1 Total Bilirubin 0.3 AST 32 ALT 33 Alkaline Phosphatase 257 H Total Protein 7.8 Albumin 4.2 Globulin 3.6 H Albumin/Globulin Ratio 1.2 Triglycerides 345 H Cholesterol 148 LDL Cholesterol, Calc 33 HDL Cholesterol 46 Cholesterol/HDL Ratio 3.2 L Quality Measures Quality Measures VTE prophylaxis Advance care planning discussed with:: patient Assessment & Plan Assessment Current Active Medications: Generic Name Dose Route Start Last Admin Trade Name Freq PRN Reason Stop Dose Admin Acetaminophen 650 mg 09/21/25 15:15 Acetaminophen 325 Mg Tablet PO 10/21/25 15:14 Q6H PRN PAIN SCALE 1-3 (mild Cyanocobalamin 250 mcg 09/22/25 09:00 09/25/25 08:32 Cyanocobalamin 500 Mcg Tablet PO 10/22/25 08:59 250 mcg DAILY SHAWNA Administration Dextrose 25 ml 09/24/25 11:59 Dextrose 50%-Water Inj 50 Ml Syringe IV 10/24/25 11:58 Q15MIN PRN BG 50-70 responsive npo pt Dextrose 50 ml 09/24/25 11:59 Dextrose 50%-Water Inj 50 Ml Syringe IV 10/24/25 11:58 Q15MIN PRN BG <50 OR BG <70 & pt unresponsive Dronabinol 5 mg 09/22/25 21:00 09/25/25 08:33 Dronabinol 2.5 Mg Capsule PO 10/22/25 20:59 5 mg BID SHAWNA Administration Folic Acid 1 mg 09/22/25 09:00 09/25/25 08:32 Folic Acid 1 Mg Tablet PO 10/22/25 08:59 1 mg DAILY SHAWNA Administration Glucagon 1 mg 09/24/25 11:59 Glucagon Inj 1 Mg Vial IM Q15MIN PRN BG <70, and no IV access Heparin Sodium (Porcine) 5,000 unit 09/21/25 21:00 09/25/25 08:33 Heparin Sod Inj 5000 Unit/Ml Vial SC 10/05/25 20:59 5,000 unit BID SHAWNA Administration Hydromorphone HCl 2 mg 09/21/25 15:21 09/23/25 12:40 Hydromorphone Hcl 2 Mg Tablet PO 09/26/25 15:20 2 mg Q4H PRN Administration pain (7-10) Sodium Chloride 40 meq/ 2,020 mls @ 45 mls/hr 09/24/25 18:00 09/24/25 17:42 Multivitamins/Minerals 10 ml/ IV 09/25/25 17:59 45 mls/hr Amino Acids/Electrolytes/ .Q24H SHAWNA Administration Dextrose Fat Emulsion Intravenous 500 mls @ 32 mls/hr 09/24/25 18:00 09/24/25 17:42 Intralipid 20% Iv IV 10/24/25 17:59 32 mls/hr [email or web address] SHAWNA Administration Insulin Human Regular 0 unit 09/24/25 18:00 09/25/25 05:41 Insulin Hum Regular 1 Unit/0.01 Ml (Per Unit) SC 10/24/25 17:59 Not Given Q6HR [facility] Protocol Loperamide HCl 16 mg 09/25/25 12:00 Loperamide 2 Mg Capsule PO 10/02/25 11:59 Q6HR SHAWNA Mirtazapine 15 mg 09/22/25 09:00 09/25/25 08:32 Mirtazapine 15 Mg Tablet PO 10/22/25 08:59 15 mg QDAY SHAWNA Administration Ondansetron HCl 4 mg 09/24/25 11:12 Ondansetron Inj 2 Mg/Ml Inj 2 Ml IVP 10/24/25 11:11 Q6HR PRN NAUSEA OR VOMITING Protocol Oxycodone/Acetaminophen 1 tab 09/21/25 15:15 09/23/25 17:11 Oxycodone/Apap 5/325 Tablet PO 09/26/25 15:14 1 tab Q6H PRN Administration PAIN SCALE 4-6 (Moderate Sodium Chloride 3 ml 09/21/25 13:58 Sodium Chloride Rt Dania 0.9% 3 Ml Nebu INH 10/21/25 13:57 PRN PRN SOLN Sodium Chloride 1 gm 09/25/25 10:30 Sodium Chloride 1 Gm Tablet PO 10/25/25 10:29 DAILY SHAWNA Thiamine HCl 100 mg 09/22/25 09:00 09/25/25 08:32 Thiamine 100 Mg Tablet PO 10/22/25 08:59 100 mg DAILY SHAWNA Administration Plan Patient is a 65 year old female with past medical history of invasive adenocarcinoma of the ascending colon s/p ex lap right hemicolectomy and ileotransverse anastomosis on 07/21 and an ex lap on 08/11 with resection of small bowel 2/2 multiple lacerations and takedown of anastomosis with diverting ileostomy who was admitted for hyperkalemia and hyponatremia. Nephrology consulted for hyperkalemia and STEPH 2/2 prerenal azotemia from high ileostomy losses. # Acute renal failure 2/2 prerenal azotemia from high output ileostomy losses. #Hypovolemic Hypotonic Hyponatremia (improving) #Hyperphosphatemia (resolved) #Hypercalcemia (resolved) #Hyperkalemia (resolved) #Multiple small bowel lacerations s/p ex lap and resection of small bowl with anastomosis and diverting ileostomy 08/11 #Invasive adenocarcinoma of ascending colon s/p R hemicolectomy with ilio transverse anastomosis 07/21 - Presented from PCP with hyperkalemia and hyponatremia and was sent to the ED for evaluation. Per chart review, patient has had ongoing electrolyte abnormalities likely secondary to short bowel syndrome given her history of extensive abdominal surgeries and ileostomy. - Sodium 117 on admission --> 123 (NS stopped) -> 119 -> 126 -> 129 -> 121 - Potassium 5.7, calcium 10.3, phosphorus 5.3 on admission, all now within normal limits. - Creatinine 3.5 -> 2.6 -> 1.4, back to baseline Plan: - Start sodium chloride 1g daily. Goal 127-129. - Avoid overcorrection - Encouraged oral hydration while also on PPN - Strict INOs - Avoid nephrotoxic agents - Renally dose medications - Follow renal panel closely - Medically stable for discharge tomorrow if sodium continues to improve. Instructed patient to drink electrolyte rich fluids like Pedialyte at home to avoid electrolyte depletion #Anion gap metabolic acidosis (resolved) - Anion gap 17 on admission --> 12 - Bicarb 18 -> 18.3 -> 22.5 -> 26.1 - Urine lytes: sodium <10, potassium 73, chloride <20. Positive urine anion gap, usually not associated with GI losses but likely in this case given high ileostomy output and significant abdominal surgical history. Plan: - Continue to monitor renal panel #Hypotension #Chronic elevated Alk phos #Lactic acidosis (resolved) #Calorie protein Malnutrition #Normocytic anemia - Defer to primary team for management Thank you for your consultation, please do not hesitate to reach out if you have any question or concern Patient plan of care was discussed with the attending physician, Dr. Suarez. Bella Hanks DO, PGY-1 Attending Provider Attestation/Addendum Patient seen and examined with resident physician Dr. Hanks. Note reviewed, agree with findings and recommendations.
[2025-09-25] MEDS: SODIUM CHLORIDE 1 GM TABLET PO (10:43)
[2025-09-25] MEDS: HYDROMORPHONE HCL 2 MG TABLET PO (11:51)
[2025-09-25] MEDS: INSULIN HUM REGULAR 1 UNIT/0.01 ML (PER UNIT) SC (11:53)
[2025-09-25 13:46] LABS: Sodium 119 mMol/L (136-145)
--- NOTE | 2025-09-25 13:52 | PC.NURSE ---
Critical lab value: NA 119. Dr. Baljeet Purvis aware. No new ordered received.
[2025-09-25 14:30] LABS: Lactate (Lactic Acid) 2.2 mMol/L (0.4-2.0)
[2025-09-25] MEDS: SODIUM CHLORIDE 0.9% 1000 ML 1,000 ML 60 ML IV (16:21)
[2025-09-25 17:22] LABS: Sodium 120 mMol/L (136-145)
[2025-09-25 17:29] LABS: Reflex Lactate? Y
[2025-09-25] MEDS: LOPERAMIDE 2 MG CAPSULE 16 MG PO ×2 (17:30→23:55)
[2025-09-25 19:20] LABS: Lactic Acid, 3 HR 2.4 mMol/L (0.4-2.0)
[2025-09-25] MEDS: MELATONIN 3 MG TABLET 6 MG PO (20:46)
[2025-09-25 21:46] LABS: Sodium 120 mMol/L (136-145)
[2025-09-25] MEDS: RINGERS LACTATED 500 ML 500 ML 999 ML IV (23:52)
[2025-09-25] MEDS: MIDODRINE 5 MG TABLET 10 MG PO (23:54)
[2025-09-26] VITALS: BP 90/55; PULSE 67; PULSE 74; RESP 16; TEMP 36.5; O2SAT 93
[2025-09-26 01:38] LABS: Sodium 120 mMol/L (136-145)
[2025-09-26 04:00] VITALS: BP 99/61; PULSE 65; PULSE 71; RESP 16; TEMP 36.1; O2SAT 98
[2025-09-26 05:38] LABS: Basophils # (Auto) 0.1 Thou/mm3 (0.0-0.2); Basophils % (Auto) 1 % (0-2.5); Eosinophils # (Auto) 0.5 Thou/mm3 (0.0-0.5); Eosinophils % (Auto) 6 % (0-10); Hematocrit 29.1 % (36.0-46.0); Hemoglobin 10.3 g/dL (12.0-16.0); Immature Granulocytes Auto 0.11 Thou/mm3 (0.00-0.00); Lymphocytes # (Auto) 2.2 Thou/mm3 (1.0-4.8); Lymphocytes % (Auto) 26 % (10-50); Mean Corpuscular HGB Conc 35.4 g/dl (31.0-37.0); Mean Corpuscular Hemoglobin 29.9 pg (25.0-35.0); Mean Corpuscular Volume 85 fL (80-100); Monocytes # (Auto) 0.4 Thou/mm3 (0.0-0.8); Monocytes % (Auto) 5 % (0-12); Neutrophils # (Auto) 5.2 Thou/mm3 (1.8-7.7); Neutrophils % (Auto) 61 % (37-80); Nucleated Red Blood Cell # 0.00 Thou/mm3 (0.00-0.00); Nucleated Red Blood Cell % 0 /100 WBC (0); Platelet Count 268 Thou/mm3 (140-440); RDW Standard Deviation 41.5 fL (36.4-46.3); Red Blood Count 3.44 Miln/mm3 (4.00-5.20); White Blood Count 8.4 Thou/mm3 (3.6-11.0)
[2025-09-26 05:52] LABS: Anion Gap 6 (7-16); BUN/Creatinine Ratio 36 Ratio (12-20); Blood Urea Nitrogen 50 mg/dL (9-23); Calcium 8.5 mg/dL (8.3-10.6); Carbon Dioxide 27.0 mMol/L (20.0-31.0); Chloride 92 mMol/L (98-107); Creatinine (Component) 1.4 mg/dL (0.6-1.3); Estimated Creatinine Clearance 29.7 mL/min (>60); Glucose 104 mg/dL (74-106); Magnesium 1.9 mg/dL (1.6-2.6); Osmolality,Calculated 264 (275-295); Phosphorous 4.8 mg/dL (2.4-5.1); Potassium 4.9 mMol/L (3.4-5.1); Sodium 125 mMol/L (136-145); eGFR 42 See Note
[2025-09-26 06:00] VITALS: BMI 18.8
[2025-09-26] MEDS: LOPERAMIDE 2 MG CAPSULE 16 MG PO (06:05)
[2025-09-26 08:00] VITALS: BP 92/58; PULSE 75; PULSE 80; RESP 17; TEMP 36.3; O2SAT 98
[2025-09-26] MEDS: HEPARIN SOD INJ 5000 UNIT/ML VIAL SC ×2 (09:34→20:34)
[2025-09-26] MEDS: MIRTAZAPINE 15 MG TABLET PO (09:35)
[2025-09-26] MEDS: FOLIC ACID 1 MG TABLET PO (09:35)
[2025-09-26] MEDS: SODIUM CHLORIDE 1 GM TABLET PO (09:35)
[2025-09-26] MEDS: THIAMINE 100 MG TABLET PO (09:36)
[2025-09-26] MEDS: SODIUM CHLORIDE 0.9% 1000 ML 1,000 ML 125 ML IV (09:39)
--- NOTE | 2025-09-26 10:41 | ESPR_ITS ---
Documentation for date of: 09/26/25 Subjective Subjective Interval history: Mrs. Washington is a Macedonian speaking, 65F with history of prediabetes and invasive adenocarcinoma of the ascending colon s/p right hemicolectomy with ileotransverse colostomy on 07/21/25 presented from SNF for hyperkelemia and hyponatremia, likely secondary to STEPH from short gut syndrome. 09/22/25: Overnight, ~800mL of D5W was given to avoid rapid correction of Na from 117 to 124. Na level this morning 119 with UOP ~1L past 24H. Patient seen and examined at bedside, no acute complaint, resting comfortably in bed. Still not much appetite, increased Marinol from 2.5mg to 5mg PO BID today. Nephrology recommended Bicitra 30mL PO BID, and patient should be discharged with sodium carbonate tablet due to high ileostomy output. Senior Controller level improved from 3.2 to 2.6 today. Plan of care discussed with patient, will continue NaCl 0.9% @ rate of 80ml/hr with Na check Q4H to avoid rapid correction. 09/23/25: NAOE. Na level 126 this morning and Senior Controller level improved to 1.4. Ileostomy output 1L. Will continue NaCl 0.9% @ rate of 125ml/hr today with frequent Na level check. Patient is clinically stable for discharge from nephrology standpoint if sodium continues to improve. However, given patient's recent dramatic weight loss, high ileostomy output, and frequent readmission, a discussion was held today at bedside via phone with patient and patient's son regarding the potential need to start patient on termite control representative TPN to support patient's nutrition status. At this time, the best option for disposition is home health with TPN. 09/24/25: No acute overnight events. Patient seen and examined at bedside. Appears comfortable and denies any new complaints. Had leakage of ileostomy bag, replaced by wound care nurse. Continues to have liquidy output in the ileostomy bag, we will increase loperamide dosing to 8 mg 4 times daily. Also added Zofran for nausea. Sodium level remained stable at 129. Discussed with dietitian, patient continues to have oral intake but unable to meet her goal. We will start her on PPN and monitor closely for stool output with loperamide. If patient does not respond to increasing dose of loperamide, we will plan for PICC line on Saturday for TPN. Vital signs are stable, kidney function is improving. 09/25/25: NAOE. Na decreased back to 121. Creatinine increased to 2. Salt tablet added. On exam, patient continues to be asymtomatic, on PPN. Loperamide increased to 16mg Q6H and Banatrol Plus to QID now. If patient continues to have high output from ileostomy bag, a PICC line may be needed on Saturday to start her on TPN. 09/26/25: Hypotensive overnight, 500mL LR bolus given with 10mg midodrine x1. BP this morning 92/58. Na improved to 125. Cr decrease to 1.4 from 2.0. Spoke with Dr. Suggs at bedside, suggested given patient's complicated surgical history, it is not advisable to pursue with ileostomy reversal due to significant morbidity and mortality. The best option at this point would be PICC line with TPN and home with home health. Patient may require TPN indefinitely to prevent future admissions to the hospital for electrolyte imbalance. Exam Vital Signs Temp Pulse Resp BP Pulse Ox O2 Del Method 97.3 F 75 17 92/58 L 98 Room Air 09/26/25 08:00 09/26/25 08:00 09/26/25 08:00 09/26/25 08:00 09/26/25 08:00 09/26/25 08:00 Narrative Exam General: Awake and in no acute distress. A/O x 3. Conversational. HEENT: Normocephalic, atraumatic Heart: Regular rate and rhythm. Lungs: Clear to auscultation with no wheezing or crackles. Abdomen: Soft, nondistended, nontender. No guarding or rebound tenderness. Transverse surgical scar d/c/i, no dehiscence, mild surrounding erythema appreciated. Ileostomy bag in place draining liquid content. Neurologic: Alert and oriented x3, no gross neurological deficit. Extremities: Moving all extremities. No edema to LE. Skin: Dry, clean, intact. No ecchymosis Objective Labs 09/26/25 05:23 09/26/25 12:15 Labs: Laboratory Results - last 24 hr 09/25/25 09/25/25 09/25/25 13:13 14: 17:05 WBC RBC Hgb Hct MCV MCH MCHC RDW Std Deviation Plt Count Neut % (Auto) Lymph % (Auto) [place] % (Auto) Eos % (Auto) Baso % (Auto) Neut # (Auto) Lymph # (Auto) [place] # (Auto) Eos # (Auto) Baso # (Auto) Immature Gran # (Auto) Absolute Nucleated RBC Immature Gran % Nucleated RBC % Sodium 119 L* 120 L Potassium Chloride Carbon Dioxide Anion Gap BUN Creatinine Estim Creat Clear Calc eGFR BUN/Creatinine Ratio Glucose Calculated Osmolality Lactic Acid 2.2 H Calcium Phosphorus Magnesium 09/25/25 09/25/25 09/26/25 19:00 21:11 01:12 WBC RBC Hgb Hct MCV MCH MCHC RDW Std Deviation Plt Count Neut % (Auto) Lymph % (Auto) [place] % (Auto) Eos % (Auto) Baso % (Auto) Neut # (Auto) Lymph # (Auto) [place] # (Auto) Eos # (Auto) Baso # (Auto) Immature Gran # (Auto) Absolute Nucleated RBC Immature Gran % Nucleated RBC % Sodium 120 L 120 L Potassium Chloride Carbon Dioxide Anion Gap BUN Creatinine Estim Creat Clear Calc eGFR BUN/Creatinine Ratio Glucose Calculated Osmolality Lactic Acid 2.4 H Calcium Phosphorus Magnesium 09/26/25 05:23 WBC 8.4 RBC 3.44 L Hgb 10.3 L D Hct 29.1 L MCV 85 MCH 29.9 MCHC 35.4 RDW Std Deviation 41.5 Plt Count 268 D Neut % (Auto) 61 Lymph % (Auto) 26 [place] % (Auto) 5 Eos % (Auto) 6 Baso % (Auto) 1 Neut # (Auto) 5.2 Lymph # (Auto) 2.2 [place] # (Auto) 0.4 Eos # (Auto) 0.5 Baso # (Auto) 0.1 Immature Gran # (Auto) 0.11 H Absolute Nucleated RBC 0.00 Immature Gran % 1 H Nucleated RBC % 0 Sodium 125 L Potassium 4.9 D Chloride 92 L Carbon Dioxide 27.0 Anion Gap 6 L BUN 50 H Creatinine 1.4 H D Estim Creat Clear Calc 29.7 L eGFR 42 L BUN/Creatinine Ratio 36 H Glucose 104 Calculated Osmolality 264 L Lactic Acid Calcium 8.5 Phosphorus 4.8 Magnesium 1.9 Quality Measures Quality Measures VTE prophylaxis Advance care planning discussed with:: patient Assessment & Plan Assessment Current Active Medications: Generic Name Dose Route Start Last Admin Trade Name Freq PRN Reason Stop Dose Admin Acetaminophen 650 mg 09/21/25 15:15 Acetaminophen 325 Mg Tablet PO 10/21/25 15:14 Q6H PRN PAIN SCALE 1-3 (mild Cyanocobalamin 250 mcg 09/22/25 09:00 09/26/25 09:35 Cyanocobalamin 500 Mcg Tablet PO 10/22/25 08:59 250 mcg DAILY SHAWNA Administration Dextrose 25 ml 09/24/25 11:59 Dextrose 50%-Water Inj 50 Ml Syringe IV 10/24/25 11:58 Q15MIN PRN BG 50-70 responsive npo pt Dextrose 50 ml 09/24/25 11:59 Dextrose 50%-Water Inj 50 Ml Syringe IV 10/24/25 11:58 Q15MIN PRN BG <50 OR BG <70 & pt unresponsive Dronabinol 5 mg 09/22/25 21:00 09/26/25 09:36 Dronabinol 2.5 Mg Capsule PO 10/22/25 20:59 5 mg BID SHAWNA Administration Folic Acid 1 mg 09/22/25 09:00 09/26/25 09:35 Folic Acid 1 Mg Tablet PO 10/22/25 08:59 1 mg DAILY SHAWNA Administration Glucagon 1 mg 09/24/25 11:59 Glucagon Inj 1 Mg Vial IM Q15MIN PRN BG <70, and no IV access Heparin Sodium (Porcine) 5,000 unit 09/21/25 21:00 09/26/25 09:34 Heparin Sod Inj 5000 Unit/Ml Vial SC 10/05/25 20:59 5,000 unit BID SHAWNA Administration Hydromorphone HCl 2 mg 09/21/25 15:21 09/25/25 11:51 Hydromorphone Hcl 2 Mg Tablet PO 09/26/25 15:20 2 mg Q4H PRN Administration pain (7-10) Fat Emulsion Intravenous 500 mls @ 32 mls/hr 09/24/25 18:00 09/24/25 17:42 Intralipid 20% Iv IV 10/24/25 17:59 32 mls/hr [id number] SHAWNA Administration Sodium Chloride 40 meq/ 2,030 mls @ 84.583 mls/hr 09/25/25 18:00 09/25/25 17:31 Multivitamins/Minerals 10 ml/ IV 09/26/25 17:59 84.583 mls/hr Sodium Acetate 20 meq/ Amino .Q24H SHAWNA Administration Acids/Electrolytes/Dextrose Sodium Chloride 1,000 mls @ 125 mls/hr 09/26/25 09:29 09/26/25 09:39 Ns IV 09/26/25 17:28 125 mls/hr .Q8H ONE Administration Sodium Chloride 60 meq/ 2,079 mls @ 86.625 mls/hr 09/26/25 18:00 Multivitamins/Minerals 10 ml/ IV 09/27/25 17:59 Sodium Acetate 60 meq/ .Q24H SHAWNA Magnesium Sulfate 2 gm/ Calcium Gluconate 2 gm/ Amino Acids Insulin Human Regular 0 unit 09/24/25 18:00 09/26/25 05:46 Insulin Hum Regular 1 Unit/0.01 Ml (Per Unit) SC 10/24/25 17:59 Not Given Q6HR SHAWNA Protocol Loperamide HCl 16 mg 09/25/25 12:00 09/26/25 06:05 Loperamide 2 Mg Capsule PO 10/02/25 11:59 16 mg Q6HR SHAWNA Administration Melatonin 6 mg 09/25/25 21:00 09/25/25 20:46 Melatonin 3 Mg Tablet PO 10/25/25 20:59 6 mg HS SHAWNA Administration Mirtazapine 15 mg 09/22/25 09:00 09/26/25 09:35 Mirtazapine 15 Mg Tablet PO 10/22/25 08:59 15 mg QDAY SHAWNA Administration Ondansetron HCl 4 mg 09/24/25 11:12 Ondansetron Inj 2 Mg/Ml Inj 2 Ml IVP 10/24/25 11:11 Q6HR PRN NAUSEA OR VOMITING Protocol Oxycodone/Acetaminophen 1 tab 09/21/25 15:15 09/23/25 17:11 Oxycodone/Apap 5/325 Tablet PO 09/26/25 15:14 1 tab Q6H PRN Administration PAIN SCALE 4-6 (Moderate Pantoprazole Sodium 40 mg 09/25/25 14:00 09/26/25 09:36 Pantoprazole Inj 40 Mg Vial IVP 10/25/25 13:59 40 mg QDAY SHAWNA Administration Sodium Chloride 3 ml 09/21/25 13:58 Sodium Chloride Rt Dania 0.9% 3 Ml Nebu INH 10/21/25 13:57 PRN PRN SOLN Sodium Chloride 1 gm 09/25/25 10:30 09/26/25 09:35 Sodium Chloride 1 Gm Tablet PO 10/25/25 10:29 1 gm DAILY SHAWNA Administration Thiamine HCl 100 mg 09/22/25 09:00 09/26/25 09:36 Thiamine 100 Mg Tablet PO 10/22/25 08:59 100 mg DAILY SHAWNA Administration Plan Mrs. Washington is a Macedonian speaking, 65F with history of invasive adenocarcinoma of the ascending colon s/p right hemicolectomy with ileotransverse colostomy on 07/21/25 presented from SNF for hyperkelemia and hyponatremia. #Short gut syndrome #High ileostomy output #Hx of invasive adenocarcinoma of the ascending colon s/p right hemicolectomy with ileotransverse colostomy (07/21/25) #Calorie protein Malnutrition Per prior note, pt has significant weight loss and not meeting daily nutritional requirement. Plan: - Dietitian consulted, recs 6 small meals, renal, Ensure Plus 8oz, Banatrol Plus - Continue Dronabinol 5mg PO BID - Ileostomy reversal not an option per Dr. Suggs. High risk given her past surgical history. - Continue PPN today, plan for PICC line tmr and switch to TPN. - Once on TPN, will increase Sodium contents and d/c NaCl 0.9%. #Pre-renal STEPH likely secondary to dehydration from high ileostomy output - improving Initial BUN to Senior Controller ratio > 20. Plan: - nephrology consulted, appreciate recs. --> added Bicitra 30mL PO BID. Recs sodium bicarb tabs for discharge. - NaCl 0.9% @ 125ml/hr, Q6H Na check. - monitor urine output - daily labs, monitor chemistry - renal dose med, avoid nephrotoxin - avoid contrast or offending mediations #Eletroclyte abnormalities #Hyperkelemia #Hyponatremia #Hyperphosphatemia Consistent with short gut syndrome with STEPH from high ileostomy output Plan: - Careful correction of Na to avoid Osmotic Demyelination Syndrome (ODS) - Hyperkalemic cocktail given in ED (1000 mg of calcium gluconate IV, 1 amp of D50 IV, 5 units of regular insulin IV and 10 mg of continuous nebulized albuterol) - Kayexelate 30gm x 1 (09/21/25) - Na level Q6H - Recheck K level in AM, if still elevated, may consider another hyperkelemic cocktail. #Anion gap metabolic acidosis - resolved 09/21/25: Bicarb 18, AG 17. BUN 63 Likely secondary to GI losses vs uremia - Lactate 09/22/25 peaked at 3.5, downtrending - Likely resolve with fluid resuscitation Health maintenance Dispo: pending resolution of STEPH, hyperkelemia, hyponatremia DVT prophylaxis: HEPARIN GI prophylaxis: Protonix Antibiotics: N/A Bowel Regimen: N/A Diet: 6 small meals, high protein ensure, Banatrol Plus QID. On PPN Lines: Peripheral IV Code status: Full code Case discussed with my senior resident Dr. Delong Case discussed with my attending Dr. Maury Persaud, PGY 1 Attending Provider Attestation/Addendum I have seen and examined the patient. I was physically present for the [place] portions of the services provided including history, physical exam, diagnosis, treatment plans and orders. I agree with assessment and plan of care as documented by residents. Patient seen and examined at bedside this morning, no acute overnight events. Appears comfortable and denies any new complaints. Continues to be on PPN, also tolerating oral diet. Despite good oral intake, high-dose loperamide, patient continues to have liquidy output from ileostomy, continues to have issues with absorption. We will change loperamide to Lomotil. Yesterday, patient had drop in sodium despite being on PPN, started on normal saline along with PPN and oral intake, sodium improved to 125 this morning. Creatinine also improved to 1.4 from 2.0 yesterday. Discussed with general surgery regarding possibility of reversal of ileostomy. Stated that with extensive surgery patient had, patient is at high risk if attempt at reanastomosis is made. Recommended to address the nutritional status at this time, if patient is able to regain weight and shows good improvement, reanastomosis may be considered at tertiary care center, appreciate recommendations. We will order PICC line for tomorrow, for continuation of long-term TPN. Plan to discuss with both case management and family regarding placement. Even though this this note was carefully revised there may still be minor errors in tank house operator due to voice recognition software. Logan Mendiola MD
--- NOTE | 2025-09-26 11:25 | PD.SURPROG ---
Documentation for date of: 09/26/25 Exam Vital Signs Temp Pulse Resp BP Pulse Ox O2 Del Method 97.3 F 75 17 92/58 L 98 Room Air 09/26/25 08:00 09/26/25 08:00 09/26/25 08:00 09/26/25 08:00 09/26/25 08:00 09/26/25 08:00 Assessment & Plan Assessment Additional comments: Impression: Severe electrolyte imbalance following her stay in the half-way. Patient is being treated with correction of electrolyte imbalance and acute renal failure she also has a diarrhea in ileostomy Plan Plan: Patient has had a high gastrointestinal diversion at the jejunal ileal junction following resection of most of the ileum. Unfortunately this diarrhea is not going to improve with antidiarrheal medication. Severe dehydration and repeated ATN can happen in this woman even though she may be eating normally. We will have the input from nephrology as far as some oral sodium intake when she is discharged. Patient will not be a candidate for reanastomosis because of extensive surgery she has had twice. Any attempt to do an ilio or jejunal transverse colostomy would result in significant morbidity and even mortality. I would wait for her to get over this electrolyte imbalance and wait for your nutrition to improve and gain weight and then consider transferring to a tertiary Medical Center for reanastomosis of the GI tract. Thank you very much
[2025-09-26] MEDS: DIPHENOXYLATE/ATROP SULF 1 TAB PO (11:42)
[2025-09-26 12:00] VITALS: BP 90/54; PULSE 81; PULSE 83; RESP 17; TEMP 36.7; O2SAT 96
[2025-09-26 12:50] LABS: Sodium 129 mMol/L (136-145)
[2025-09-26 16:00] VITALS: BP 93/52; PULSE 80; PULSE 98; RESP 18; TEMP 36.6; O2SAT 96
--- NOTE | 2025-09-26 16:21 | PC.SS ---
Rounding: monitoring Sodium, PICCLINE for TPN pending. Team aware for terminal press operator only option is home with HH which family is not in agreement to at this point. SS to speak to family tomorrow
--- NOTE | 2025-09-26 16:33 | ESPR_ITS ---
Documentation for date of: 09/26/25 Subjective Subjective Interval history: Informant son at bedside. Chart review done. Patient's son not quite sure on the medical/surgical history. Discharged last month and discharge diagnoses included-- #Subacute illiostomy leak #Multiple small bowel lacerations s/p ex lap and resection of small bowl with anastomosis and diverting ileostomy 08/11 #Abdominal abscess s/p IR drainage 08/10 #Pelvic abscess s/p IR drainage 08/09 #Invasive adenocarcinoma of ascending colon s/p R hemicolectomy with ilio transverse anastomosis 07/21 #Calorie protein Malnutrition #Short bowel syndrome vs. #high-output ileostomy #Nonanion gap metabolic acidosis #UTI, Enterobacter aerogenes #Electrolyte abnormalities #Moderate Hypovolemic Hypotonic Hyponatremia - #Hyperphosphatemia - #Hypercalcemia - #STEPH #Normocytic anemia - #Hypotension #Chronic elevated Alk phos Patient comes back with the same diagnosis of acute renal failure, electrolyte imbalance with high output ileostomy losses. Seen in the emergency department. Sick looking. Home medications included vitamin D, B12, Pepcid, folic acid, Dilaudid, mirtazapine, multivitamin, thiamine, zinc. Blood pressure 103/75, heart rate 110, afebrile CBC normal except platelets 473.Sodium 117, potassium 5.7, bicarbonate 20.8, BUN 63, creatinine 3.5, GFR 14. Also noted 10 days ago her creatinine was 0.5. Calcium 10.3, magnesium 1.6, AST 103, ALT 100, alk phos 361, albumin 4.8, globulin 4.5, lipase 64. Urinalysis shows significant pyuria, urine sodium less than 10 09/26/2025 patient still having a lot of ileostomy losses. adjust electrolytes. PPN pending Review of Systems Review of Systems Narrative Review of Systems: CONSTITUTIONAL: Complaining of significant fatigue CARDIOVASCULAR: Patient denies any chest pain, shortness of breath, swelling in the lower extremities. PULMONARY: Patient denies any shortness of breath, cough. GASTROINTESTINAL: Complaining of abdominal discomfort from the ileostomy site GENITOURINARY: Patient denies any urinary symptoms of burning or frequency or hematuria, denies any form in the urine. SKIN: Irritation noted around the ileostomy site MUSCULOSKELETAL: Gait imbalance NEUROLOGICAL: Denies any neurological problems of strokes, seizures or confusion. Denies any memory problems. PSYCHIATRIC: admits depression Exam Vital Signs Temp Pulse Resp BP Pulse Ox O2 Del Method 36.2 C 64 17 93/52 L 98 Room Air 09/26/25 20:00 09/26/25 20:00 09/26/25 20:00 09/26/25 20:00 09/26/25 20:00 09/26/25 20:00 Narrative Exam Physical Exam General: Awake and in no acute distress. Conversational. Cachectic. HEENT: Patches of hair loss. Normocephalic, atraumatic, mucous membranes moist. Heart: Regular rate and rhythm, normal S1 and S2, no murmurs. Lungs: Clear to auscultation with no wheezing or crackles. Abdomen: Soft, nondistended, nontender, positive bowel sounds. No guarding or rebound tenderness. Diverticulum ileostomy with redness around the ileostomy site. Bag fluid with liquidy stool Neurologic: Alert and oriented x3, no gross neurological deficit, and patient able to move all 4 extremities. Extremities: No edema. Skin: Erythema around ileostomy site. No ecchymoses. Objective Labs 09/29/25 04:37 09/29/25 04:37 Labs: Laboratory Results - last 24 hr 09/25/25 09/26/25 09/26/25 21:11 01:12 05:23 WBC 8.4 RBC 3.44 L Hgb 10.3 L D Hct 29.1 L MCV 85 MCH 29.9 MCHC 35.4 RDW Std Deviation 41.5 Plt Count 268 D Neut % (Auto) 61 Lymph % (Auto) 26 [place] % (Auto) 5 Eos % (Auto) 6 Baso % (Auto) 1 Neut # (Auto) 5.2 Lymph # (Auto) 2.2 [place] # (Auto) 0.4 Eos # (Auto) 0.5 Baso # (Auto) 0.1 Immature Gran # (Auto) 0.11 H Absolute Nucleated RBC 0.00 Immature Gran % 1 H Nucleated RBC % 0 Sodium 120 L 120 L 125 L Potassium 4.9 D Chloride 92 L Carbon Dioxide 27.0 Anion Gap 6 L BUN 50 H Creatinine 1.4 H D Estim Creat Clear Calc 29.7 L eGFR 42 L BUN/Creatinine Ratio 36 H Glucose 104 Calculated Osmolality 264 L Calcium 8.5 Phosphorus 4.8 Magnesium 1.9 09/26/25 09/26/25 12:15 18:39 WBC RBC Hgb Hct MCV MCH MCHC RDW Std Deviation Plt Count Neut % (Auto) Lymph % (Auto) [place] % (Auto) Eos % (Auto) Baso % (Auto) Neut # (Auto) Lymph # (Auto) [place] # (Auto) Eos # (Auto) Baso # (Auto) Immature Gran # (Auto) Absolute Nucleated RBC Immature Gran % Nucleated RBC % Sodium 129 L 132 L Potassium Chloride Carbon Dioxide Anion Gap BUN Creatinine Estim Creat Clear Calc eGFR BUN/Creatinine Ratio Glucose Calculated Osmolality Calcium Phosphorus Magnesium Assessment & Plan Assessment and plan (1) Acute renal failure: Status: Acute Additional Assessment & Plan Additional Plan: # Acute renal failure secondary to prerenal azotemia from high output ileostomy losses. Agree with continuing IV fluids for now. #Multiple small bowel lacerations s/p ex lap and resection of small bowl with anastomosis and diverting ileostomy 08/11 High output ileostomy losses. Leading to electrolyte imbalance #Invasive adenocarcinoma of ascending colon s/p R hemicolectomy with ilio transverse anastomosis 07/21 #Calorie protein Malnutrition #anion gap metabolic acidosis -secondary to prerenal azotemia #Hypovolemic Hypotonic Hyponatremia -continue with normal saline #Hyperphosphatemia - #Hypercalcemia - #Normocytic anemia - #Hypotension #Chronic elevated Alk phos - Will monitor renal function, electrolytes closely.
[2025-09-26 19:00] LABS: Sodium 132 mMol/L (136-145)
[2025-09-26 20:00] VITALS: BP 93/52; PULSE 64; PULSE 69; RESP 17; TEMP 36.2; O2SAT 98
[2025-09-26] MEDS: MELATONIN 3 MG TABLET 6 MG PO (20:34)
[2025-09-27] VITALS (12 sets, daily range): BP systolic 93–120; BP diastolic 51–78; PULSE 66–116; RESP 15–20; TEMP 36.5–37.1; O2SAT 92–100; BMI 18.8
[2025-09-27 00:49] LABS: Sodium 133 mMol/L (136-145)
[2025-09-27 06:43] LABS: Basophils # (Auto) 0.0 Thou/mm3 (0.0-0.2); Basophils % (Auto) 1 % (0-2.5); Eosinophils # (Auto) 0.2 Thou/mm3 (0.0-0.5); Eosinophils % (Auto) 5 % (0-10); Hematocrit 27.6 % (36.0-46.0); Hemoglobin 9.4 g/dL (12.0-16.0); Immature Granulocytes Auto 0.05 Thou/mm3 (0.00-0.00); Lymphocytes # (Auto) 1.6 Thou/mm3 (1.0-4.8); Lymphocytes % (Auto) 33 % (10-50); Mean Corpuscular HGB Conc 34.1 g/dl (31.0-37.0); Mean Corpuscular Hemoglobin 29.8 pg (25.0-35.0); Mean Corpuscular Volume 88 fL (80-100); Monocytes # (Auto) 0.4 Thou/mm3 (0.0-0.8); Monocytes % (Auto) 8 % (0-12); Neutrophils # (Auto) 2.6 Thou/mm3 (1.8-7.7); Neutrophils % (Auto) 53 % (37-80); Nucleated Red Blood Cell # 0.00 Thou/mm3 (0.00-0.00); Nucleated Red Blood Cell % 0 /100 WBC (0); Platelet Count 234 Thou/mm3 (140-440); RDW Standard Deviation 43.9 fL (36.4-46.3); Red Blood Count 3.15 Miln/mm3 (4.00-5.20); White Blood Count 4.9 Thou/mm3 (3.6-11.0)
[2025-09-27 07:26] LABS: Anion Gap 8 (7-16); BUN/Creatinine Ratio 54 Ratio (12-20); Blood Urea Nitrogen 38 mg/dL (9-23); Calcium 8.8 mg/dL (8.3-10.6); Carbon Dioxide 24.7 mMol/L (20.0-31.0); Chloride 100 mMol/L (98-107); Creatinine (Component) 0.7 mg/dL (0.6-1.3); Estimated Creatinine Clearance 57.1 mL/min (>60); Glucose 117 mg/dL (74-106); Magnesium 1.7 mg/dL (1.6-2.6); Osmolality,Calculated 276 (275-295); Phosphorous 2.4 mg/dL (2.4-5.1); Potassium 4.0 mMol/L (3.4-5.1); Sodium 133 mMol/L (136-145); eGFR > 60 See Note
--- NOTE | 2025-09-27 08:00 | XR_ITS ---
EXAMINATION: Attempted PICC line placement AP chest single view Date and time: September 27, 2025, 1225 hours INDICATIONS: Need for long-term intravenous medication TECHNIQUE AND FINDINGS: Informed consent provided. Timeout performed. The skin prepped over both arms and multiple attempts made for ultrasound-guided needle localization of the deep venous system, veins are small attempts were unsuccessful IMPRESSION: Unsuccessful PICC line placement
--- NOTE | 2025-09-27 08:35 | ESPR_ITS ---
Documentation for date of: 09/27/25 Subjective Subjective Interval history: History of present illness: Patient comes back with the same diagnosis of acute renal failure, electrolyte imbalance with high output ileostomy losses. Seen in the emergency department. Sick looking. Home medications included vitamin D, B12, Pepcid, folic acid, Dilaudid, mirtazapine, multivitamin, thiamine, zinc. Blood pressure 103/75, heart rate 110, afebrile CBC normal except platelets 473.Sodium 117, potassium 5.7, bicarbonate 20.8, BUN 63, creatinine 3.5, GFR 14. Also noted 10 days ago her creatinine was 0.5. Calcium 10.3, magnesium 1.6, AST 103, ALT 100, alk phos 361, albumin 4.8, globulin 4.5, lipase 64. Urinalysis shows significant pyuria, urine sodium less than 10 Patient admitted for hyperkalemia in setting of prerenal STEPH secondary to high ileostomy output. Nephrology consulted for management of hyperkalemia and STEPH. 09/22/25: Patient seen and assessed at bedside. Reports she is feeling better. Overnight, normal saline stopped due to overcorrection of sodium, improved to 123. Dropped back to 119, restart IV NS at 125 mL/h. Goal sodium 125- 127, sodium check q6hr. potassium 4.7, chloride 86, bicarb 18.3, BUN 58, creatinine 2.6, GFR 28. A1c 6.0. Lactic acid 2.3. Calcium 9.5, phosphorus 4.8, magnesium 1.5, repleted. Still has mildly elevated liver enzymes. Started Bicitra due to GI bicarb losses, recommend discharging with sodium bicarb tablets. 09/23/25: Patient seen and assessed at bedside. Doing well. UOP 1.4L. Sodium 126, continue NS with goal 132. Potassium 4.0, chloride 92, bicarb 22.5, BUN 33, creatinine 1.4, GFR 42. Continue NS at 125 cc/hr and Bicitra. Patient is medically stable for discharge from nephrology standpoint if sodium continues to improve. Send with sodium bicarb tablets. 09/24/25: Patient seen and assessed at bedside. Had leakage of ileostomy bag. Sodium 129, started on PPN by primary team. Discontinue Bicitra as bicarb improved. 09/25/25: Patient seen and assessed at bedside. Reporting pain around ileostomy site, erythematous and tender. No leakage noted. Total output 1.5 L (700 cc stool, 800 cc urine). Sodium 121, potassium 4.2, chloride 83, BUN 40, creatinine 2.0 (from 1.1). Start on sodium chloride tablets 1g, encouraged oral hydration. On PPN with sodium 40mEq additive since yesterday. Continue to monitor sodium q6hr, goal 127-129. 10/07/25: Patient seen and assessed at bedside. Worsening irritation around ileostomy site due to persistent leakage. Sodium 133, potassium 4.0, chloride 100, bicarb 24.7, BUN 38, creatinine 0.7. Sodium additives maximized via PPN, continue salt tablets 1 g daily. Start sodium bicarb 325mg BID. Attempt to wean off NS. Plan to dc on TPN per primary team once sodium stabilized. Spoke to surgeon Dr. Suggs, patient may require higher level of care. Exam Vital Signs Temp Pulse Resp BP Pulse Ox O2 Del Method 97.7 F 76 15 95/55 L 96 Room Air 09/27/25 03:54 09/27/25 04:00 09/27/25 03:54 09/27/25 03:54 09/27/25 03:54 09/27/25 03:54 Narrative Exam Physical Exam General: Awake and in no acute distress. Conversational. Cachectic. HEENT: Patches of hair loss. Normocephalic, atraumatic, mucous membranes moist. Heart: Regular rate and rhythm, normal S1 and S2, no murmurs. Lungs: Clear to auscultation with no wheezing or crackles. Abdomen: Soft, nondistended, nontender, positive bowel sounds. No guarding or rebound tenderness. Diverticulum ileostomy with redness around the ileostomy site. Bag fluid with liquidy stool Neurologic: Alert and oriented x3, no gross neurological deficit, and patient able to move all 4 extremities. Extremities: No edema. Skin: Erythema around ileostomy site. No ecchymoses. Objective Labs 09/27/25 06:19 09/27/25 18:14 Labs: Laboratory Results - last 24 hr 09/26/25 09/26/25 09/27/25 12:15 18:39 00:28 WBC RBC Hgb Hct MCV MCH MCHC RDW Std Deviation Plt Count Neut % (Auto) Lymph % (Auto) [place] % (Auto) Eos % (Auto) Baso % (Auto) Neut # (Auto) Lymph # (Auto) [place] # (Auto) Eos # (Auto) Baso # (Auto) Immature Gran # (Auto) Absolute Nucleated RBC Immature Gran % Nucleated RBC % Sodium 129 L 132 L 133 L Potassium Chloride Carbon Dioxide Anion Gap BUN Creatinine Estim Creat Clear Calc eGFR BUN/Creatinine Ratio Glucose Calculated Osmolality Calcium Phosphorus Magnesium 09/27/25 06:19 WBC 4.9 D RBC 3.15 L Hgb 9.4 L Hct 27.6 L MCV 88 MCH 29.8 MCHC 34.1 RDW Std Deviation 43.9 Plt Count 234 D Neut % (Auto) 53 Lymph % (Auto) 33 [place] % (Auto) 8 Eos % (Auto) 5 Baso % (Auto) 1 Neut # (Auto) 2.6 Lymph # (Auto) 1.6 [place] # (Auto) 0.4 Eos # (Auto) 0.2 Baso # (Auto) 0.0 Immature Gran # (Auto) 0.05 H Absolute Nucleated RBC 0.00 Immature Gran % 1 H Nucleated RBC % 0 Sodium 133 L Potassium 4.0 D Chloride 100 Carbon Dioxide 24.7 Anion Gap 8 BUN 38 H Creatinine 0.7 D Estim Creat Clear Calc 57.1 L eGFR > 60 BUN/Creatinine Ratio 54 H Glucose 117 H Calculated Osmolality 276 Calcium 8.8 Phosphorus 2.4 Magnesium 1.7 Quality Measures Quality Measures VTE prophylaxis Advance care planning discussed with:: patient Assessment & Plan Assessment Current Active Medications: Generic Name Dose Route Start Last Admin Trade Name Freq PRN Reason Stop Dose Admin Acetaminophen 650 mg 09/21/25 15:15 Acetaminophen 325 Mg Tablet PO 10/21/25 15:14 Q6H PRN PAIN SCALE 1-3 (mild Cyanocobalamin 250 mcg 09/22/25 09:00 09/26/25 09:35 Cyanocobalamin 500 Mcg Tablet PO 10/22/25 08:59 250 mcg DAILY SHAWNA Administration Dextrose 25 ml 09/24/25 11:59 Dextrose 50%-Water Inj 50 Ml Syringe IV 10/24/25 11:58 Q15MIN PRN BG 50-70 responsive npo pt Dextrose 50 ml 09/24/25 11:59 Dextrose 50%-Water Inj 50 Ml Syringe IV 10/24/25 11:58 Q15MIN PRN BG <50 OR BG <70 & pt unresponsive Dronabinol 5 mg 09/22/25 21:00 09/26/25 20:34 Dronabinol 2.5 Mg Capsule PO 10/22/25 20:59 5 mg BID SHAWNA Administration Folic Acid 1 mg 09/22/25 09:00 09/26/25 09:35 Folic Acid 1 Mg Tablet PO 10/22/25 08:59 1 mg DAILY SHAWNA Administration Glucagon 1 mg 09/24/25 11:59 Glucagon Inj 1 Mg Vial IM Q15MIN PRN BG <70, and no IV access Heparin Sodium (Porcine) 5,000 unit 09/21/25 21:00 09/26/25 20:34 Heparin Sod Inj 5000 Unit/Ml Vial SC 10/05/25 20:59 5,000 unit BID SHAWNA Administration Hydromorphone HCl 2 mg 09/26/25 15:25 Hydromorphone Hcl 2 Mg Tablet PO 10/01/25 15:24 Q4HR PRN pain 7-10 Fat Emulsion Intravenous 500 mls @ 32 mls/hr 09/24/25 18:00 09/24/25 17:42 Intralipid 20% Iv IV 10/24/25 17:59 32 mls/hr [email or web address] SHAWNA Administration Sodium Chloride 60 meq/ 2,079 mls @ 86.625 mls/hr 09/26/25 18:00 09/26/25 18:14 Multivitamins/Minerals 10 ml/ IV 09/27/25 17:59 86.625 mls/hr Sodium Acetate 60 meq/ .Q24H SHAWNA Administration Magnesium Sulfate 2 gm/ Calcium Gluconate 2 gm/ Amino Acids Insulin Human Regular 0 unit 09/24/25 18:00 09/27/25 07:27 Insulin Hum Regular 1 Unit/0.01 Ml (Per Unit) SC 10/24/25 17:59 Not Given Q6HR SHAWNA Protocol Melatonin 6 mg 09/25/25 21:00 09/26/25 20:34 Melatonin 3 Mg Tablet PO 10/25/25 20:59 6 mg HS SHAWNA Administration Mirtazapine 15 mg 09/22/25 09:00 09/26/25 09:35 Mirtazapine 15 Mg Tablet PO 10/22/25 08:59 15 mg QDAY SHAWNA Administration Ondansetron HCl 4 mg 09/24/25 11:12 Ondansetron Inj 2 Mg/Ml Inj 2 Ml IVP 10/24/25 11:11 Q6HR PRN NAUSEA OR VOMITING Protocol Oxycodone/Acetaminophen 1 tab 09/26/25 15:24 Oxycodone/Apap 5/325 Tablet PO 10/01/25 15:23 Q6HR PRN pain 4-6 Pantoprazole Sodium 40 mg 09/25/25 14:00 09/26/25 09:36 Pantoprazole Inj 40 Mg Vial IVP 10/25/25 13:59 40 mg QDAY SHAWNA Administration Sodium Chloride 3 ml 09/21/25 13:58 Sodium Chloride Rt Dania 0.9% 3 Ml Nebu INH 10/21/25 13:57 PRN PRN SOLN Sodium Chloride 1 gm 09/25/25 10:30 09/26/25 09:35 Sodium Chloride 1 Gm Tablet PO 10/25/25 10:29 1 gm DAILY SHAWNA Administration Thiamine HCl 100 mg 09/22/25 09:00 09/26/25 09:36 Thiamine 100 Mg Tablet PO 10/22/25 08:59 100 mg DAILY SHAWNA Administration Plan Patient is a 65 year old female with past medical history of invasive adenocarcinoma of the ascending colon s/p ex lap right hemicolectomy and ileotransverse anastomosis on 07/21 and an ex lap on 08/11 with resection of small bowel 2/2 multiple lacerations and takedown of anastomosis with diverting ileostomy who was admitted for hyperkalemia and hyponatremia. Nephrology consulted for hyperkalemia and STEPH 2/2 prerenal azotemia from high ileostomy losses. # Acute renal failure 2/2 prerenal azotemia from high output ileostomy losses. #Hypovolemic Hypotonic Hyponatremia (improving) #Hyperphosphatemia (resolved) #Hypercalcemia (resolved) #Hyperkalemia (resolved) #Multiple small bowel lacerations s/p ex lap and resection of small bowl with anastomosis and diverting ileostomy 08/11 #Invasive adenocarcinoma of ascending colon s/p R hemicolectomy with ilio transverse anastomosis 07/21 - Presented from PCP with hyperkalemia and hyponatremia and was sent to the ED for evaluation. Per chart review, patient has had ongoing electrolyte abnormalities likely secondary to short bowel syndrome given her history of extensive abdominal surgeries and ileostomy. - Sodium 117 on admission --> 123 (NS stopped) -> 119 -> 126 -> 129 -> 121 - Potassium 5.7, calcium 10.3, phosphorus 5.3 on admission, all now within normal limits. - Creatinine 3.5 -> 2.6 -> 1.4, back to baseline Plan: - On PPN with sodium additives (NaCl 60 mEq, sodium acetate 60 mEq), sodium chloride tablet 1g daily to maintain current sodium level - Started on sodium bicarb 325mg BID. Attempt to wean off NS maintenance. - Encouraged oral hydration while also on PPN - Strict INOs - Avoid nephrotoxic agents - Renally dose medications - Follow renal panel closely - Patient has had ongoing and will continue to have electrolyte abnormalities secondary to short bowel syndrome given her history of extensive abdominal surgeries and ileostomy. Per surgeon Dr. Suggs, patient will likely require higher level of care. #Anion gap metabolic acidosis (resolved) - Anion gap 17 on admission --> 12 - Bicarb 18 -> 18.3 -> 22.5 -> 26.1 - Urine lytes: sodium <10, potassium 73, chloride <20. Positive urine anion gap, usually not associated with GI losses but likely in this case given high ileostomy output and significant abdominal surgical history. Plan: - Continue to monitor renal panel #Hypotension #Chronic elevated Alk phos #Lactic acidosis (resolved) #Calorie protein Malnutrition #Normocytic anemia - Defer to primary team for management Thank you for your consultation, please do not hesitate to reach out if you have any question or concern Patient plan of care was discussed with the attending physician, Dr. Suarez. Bella Hanks DO, PGY-1 Attending Provider Attestation/Addendum Patient seen and examined with resident physician Dr. Hanks. Note reviewed, agree with findings and recommendations. Patient currently seen in medical floor. Currently on PPN. Spoke to primary team-patient seems to have significant Electrolyte and fluid losses from short gut syndrome. She has total colectomy, ileostomy with dumping syndrome. Medications have not been helping. Noted with surgeon recommended higher level of care although prognosis remains poor. Pending placement. Creatinine seems to be better. Electrolytes better with salt tablets. Continue bicarbonate, multivitamin
[2025-09-27] MEDS: THIAMINE 100 MG TABLET PO (09:05)
[2025-09-27] MEDS: FOLIC ACID 1 MG TABLET PO (09:05)
[2025-09-27] MEDS: HEPARIN SOD INJ 5000 UNIT/ML VIAL SC ×2 (09:05→23:26)
[2025-09-27] MEDS: MIRTAZAPINE 15 MG TABLET PO (09:05)
[2025-09-27] MEDS: SODIUM CHLORIDE 1 GM TABLET PO (09:06)
--- NOTE | 2025-09-27 09:34 | ESPR_ITS ---
<Statement entered by Yunier Nichols MD - 10/07/25 08:25> I reviewed above note and agree with findings and plans. I have also personally examined the patient with medicine team and went over assessment and plan with medical team including fall internship and resident physician. <Statement entered by Jonathan Purvis MD - 09/28/25 13:33> Patient was examined and case was reviewed with team including attending physician. Note reviewed, I agree with most of its contents and agree with the patient's care. Jonathan Purvis MD PGY-2 Documentation for date of: 09/27/25 Subjective Subjective Interval history: Mrs. Washington is a Kazakh speaking, 65F with history of prediabetes and invasive adenocarcinoma of the ascending colon s/p right hemicolectomy with ileotransverse colostomy on 07/21/25 presented from SNF for hyperkelemia and hyponatremia, likely secondary to STEPH from short gut syndrome. 09/22/25: Overnight, ~800mL of D5W was given to avoid rapid correction of Na from 117 to 124. Na level this morning 119 with UOP ~1L past 24H. Patient seen and examined at bedside, no acute complaint, resting comfortably in bed. Still not much appetite, increased Marinol from 2.5mg to 5mg PO BID today. Nephrology recommended Bicitra 30mL PO BID, and patient should be discharged with sodium carbonate tablet due to high ileostomy output. Mash Filter Cloth Changer level improved from 3.2 to 2.6 today. Plan of care discussed with patient, will continue NaCl 0.9% @ rate of 80ml/hr with Na check Q4H to avoid rapid correction. 09/23/25: NAOE. Na level 126 this morning and Mash Filter Cloth Changer level improved to 1.4. Ileostomy output 1L. Will continue NaCl 0.9% @ rate of 125ml/hr today with frequent Na level check. Patient is clinically stable for discharge from nephrology standpoint if sodium continues to improve. However, given patient's recent dramatic weight loss, high ileostomy output, and frequent readmission, a discussion was held today at bedside via phone with patient and patient's son regarding the potential need to start patient on termination clerk TPN to support patient's nutrition status. At this time, the best option for disposition is home health with TPN. 09/24/25: No acute overnight events. Patient seen and examined at bedside. Appears comfortable and denies any new complaints. Had leakage of ileostomy bag, replaced by wound care nurse. Continues to have liquidy output in the ileostomy bag, we will increase loperamide dosing to 8 mg 4 times daily. Also added Zofran for nausea. Sodium level remained stable at 129. Discussed with dietitian, patient continues to have oral intake but unable to meet her goal. We will start her on PPN and monitor closely for stool output with loperamide. If patient does not respond to increasing dose of loperamide, we will plan for PICC line on Saturday for TPN. Vital signs are stable, kidney function is improving. 09/25/25: NAOE. Na decreased back to 121. Creatinine increased to 2. Salt tablet added. On exam, patient continues to be asymtomatic, on PPN. Loperamide increased to 16mg Q6H and Banatrol Plus to QID now. If patient continues to have high output from ileostomy bag, a PICC line may be needed on Saturday to start her on TPN. 09/26/25: Hypotensive overnight, 500mL LR bolus given with 10mg midodrine x1. BP this morning 92/58. Na improved to 125. Cr decrease to 1.4 from 2.0. Spoke with Dr. Suggs at bedside, suggested given patient's complicated surgical history, it is not advisable to pursue with ileostomy reversal due to significant morbidity and mortality. The best option at this point would be PICC line with TPN and home with home health. Patient may require TPN indefinitely to prevent future admissions to the hospital for electrolyte imbalance. 09/27/25: NAOE. Plan for PICC line today and start TPN. Mash Filter Cloth Changer 0.7. Na 133. Spoke with family at bedside, stated they would not be able to take care of the patient at home even with the help of home amanda nurse. wharf worker had already spoke with patient and family regarding their limited options, but will speak with them today. Patient was advised to obtain referral from her PCP to a tertiary Medical Center for reanastomosis of the GI tract after her nutritional status improve, but at this time, she will require TPN to prevent electrolyte imbalance. Exam Vital Signs Temp Pulse Resp BP Pulse Ox O2 Del Method 98.0 F 66 18 111/62 99 Room Air 09/27/25 08:00 09/27/25 08:00 09/27/25 08:00 09/27/25 08:00 09/27/25 08:00 09/27/25 08:00 Narrative Exam General: Awake and in no acute distress. A/O x 3. Conversational. HEENT: Normocephalic, atraumatic Heart: Regular rate and rhythm. Lungs: Clear to auscultation with no wheezing or crackles. Abdomen: Soft, nondistended, nontender. No guarding or rebound tenderness. Transverse surgical scar with mild surrounding erythema appreciated. Ileostomy bag replaced, draining loose small bowel contents. Neurologic: Alert and oriented x3, no gross neurological deficit. Extremities: Moving all extremities. No edema to LE. Skin: Dry, clean, intact. No ecchymosis Objective Labs 09/27/25 06:19 09/27/25 06:19 Labs: Laboratory Results - last 24 hr 09/26/25 09/26/25 09/27/25 12:15 18:39 00:28 WBC RBC Hgb Hct MCV MCH MCHC RDW Std Deviation Plt Count Neut % (Auto) Lymph % (Auto) [place] % (Auto) Eos % (Auto) Baso % (Auto) Neut # (Auto) Lymph # (Auto) [place] # (Auto) Eos # (Auto) Baso # (Auto) Immature Gran # (Auto) Absolute Nucleated RBC Immature Gran % Nucleated RBC % Sodium 129 L 132 L 133 L Potassium Chloride Carbon Dioxide Anion Gap BUN Creatinine Estim Creat Clear Calc eGFR BUN/Creatinine Ratio Glucose Calculated Osmolality Calcium Phosphorus Magnesium 09/27/25 06:19 WBC 4.9 D RBC 3.15 L Hgb 9.4 L Hct 27.6 L MCV 88 MCH 29.8 MCHC 34.1 RDW Std Deviation 43.9 Plt Count 234 D Neut % (Auto) 53 Lymph % (Auto) 33 [place] % (Auto) 8 Eos % (Auto) 5 Baso % (Auto) 1 Neut # (Auto) 2.6 Lymph # (Auto) 1.6 Ellsworth # (Auto) 0.4 Eos # (Auto) 0.2 Baso # (Auto) 0.0 Immature Gran # (Auto) 0.05 H Absolute Nucleated RBC 0.00 Immature Gran % 1 H Nucleated RBC % 0 Sodium 133 L Potassium 4.0 D Chloride 100 Carbon Dioxide 24.7 Anion Gap 8 BUN 38 H Creatinine 0.7 D Estim Creat Clear Calc 57.1 L eGFR > 60 BUN/Creatinine Ratio 54 H Glucose 117 H Calculated Osmolality 276 Calcium 8.8 Phosphorus 2.4 Magnesium 1.7 Quality Measures Quality Measures VTE prophylaxis Advance care planning discussed with:: patient and child Assessment & Plan Assessment Current Active Medications: Generic Name Dose Route Start Last Admin Trade Name Brigitte PRN Reason Stop Dose Admin Acetaminophen 650 mg 09/21/25 15:15 Acetaminophen 325 Mg Tablet PO 10/21/25 15:14 Q6H PRN PAIN SCALE 1-3 (mild Cyanocobalamin 250 mcg 09/22/25 09:00 09/27/25 09:06 Cyanocobalamin 500 Mcg Tablet PO 10/22/25 08:59 250 mcg DAILY SHAWNA Administration Dextrose 25 ml 09/24/25 11:59 Dextrose 50%-Water Inj 50 Ml Syringe IV 10/24/25 11:58 Q15MIN PRN BG 50-70 responsive npo pt Dextrose 50 ml 09/24/25 11:59 Dextrose 50%-Water Inj 50 Ml Syringe IV 10/24/25 11:58 Q15MIN PRN BG <50 OR BG <70 & pt unresponsive Dronabinol 5 mg 09/22/25 21:00 09/27/25 09:05 Dronabinol 2.5 Mg Capsule PO 10/22/25 20:59 5 mg BID SHAWNA Administration Folic Acid 1 mg 09/22/25 09:00 09/27/25 09:05 Folic Acid 1 Mg Tablet PO 10/22/25 08:59 1 mg DAILY SHAWNA Administration Glucagon 1 mg 09/24/25 11:59 Glucagon Inj 1 Mg Vial IM Q15MIN PRN BG <70, and no IV access Heparin Sodium (Porcine) 5,000 unit 09/21/25 21:00 09/27/25 09:05 Heparin Sod Inj 5000 Unit/Ml Vial SC 10/05/25 20:59 5,000 unit BID SHAWNA Administration Hydromorphone HCl 2 mg 09/26/25 15:25 Hydromorphone Hcl 2 Mg Tablet PO 10/01/25 15:24 Q4HR PRN pain 7-10 Fat Emulsion Intravenous 500 mls @ 32 mls/hr 09/24/25 18:00 09/24/25 17:42 Intralipid 20% Iv IV 10/24/25 17:59 32 mls/hr [id number] SHAWNA Administration Sodium Chloride 60 meq/ 2,079 mls @ 86.625 mls/hr 09/26/25 18:00 09/26/25 18:14 Multivitamins/Minerals 10 ml/ IV 09/27/25 17:59 86.625 mls/hr Sodium Acetate 60 meq/ .Q24H SHAWNA Administration Magnesium Sulfate 2 gm/ Calcium Gluconate 2 gm/ Amino Acids Insulin Human Regular 0 unit 09/24/25 18:00 09/27/25 07:27 Insulin Hum Regular 1 Unit/0.01 Ml (Per Unit) SC 10/24/25 17:59 Not Given Q6HR SHAWNA Protocol Melatonin 6 mg 09/25/25 21:00 09/26/25 20:34 Melatonin 3 Mg Tablet PO 10/25/25 20:59 6 mg HS SHAWNA Administration Mirtazapine 15 mg 09/22/25 09:00 09/27/25 09:05 Mirtazapine 15 Mg Tablet PO 10/22/25 08:59 15 mg QDAY SHAWNA Administration Ondansetron HCl 4 mg 09/24/25 11:12 Ondansetron Inj 2 Mg/Ml Inj 2 Ml IVP 10/24/25 11:11 Q6HR PRN NAUSEA OR VOMITING Protocol Oxycodone/Acetaminophen 1 tab 09/26/25 15:24 Oxycodone/Apap 5/325 Tablet PO 10/01/25 15:23 Q6HR PRN pain 4-6 Pantoprazole Sodium 40 mg 09/25/25 14:00 09/27/25 09:05 Pantoprazole Inj 40 Mg Vial IVP 10/25/25 13:59 40 mg QDAY SHAWNA Administration Sodium Bicarbonate 325 mg 09/27/25 09:15 Sodium Bicarbonate 650 Mg Tablet PO 10/27/25 09:14 BID SHAWNA Sodium Chloride 3 ml 09/21/25 13:58 Sodium Chloride Rt Dania 0.9% 3 Ml Nebu INH 10/21/25 13:57 PRN PRN SOLN Sodium Chloride 1 gm 09/25/25 10:30 09/27/25 09:06 Sodium Chloride 1 Gm Tablet PO 10/25/25 10:29 1 gm DAILY SHAWNA Administration Thiamine HCl 100 mg 09/22/25 09:00 09/27/25 09:05 Thiamine 100 Mg Tablet PO 10/22/25 08:59 100 mg DAILY SHAWNA Administration Plan Mrs. Washington is a Kazakh speaking, 65F with history of invasive adenocarcinoma of the ascending colon s/p right hemicolectomy with ileotransverse colostomy on 07/21/25 presented from SNF for hyperkelemia and hyponatremia. #Short gut syndrome #High ileostomy output #Hx of invasive adenocarcinoma of the ascending colon s/p right hemicolectomy with ileotransverse colostomy (07/21/25) #Calorie protein Malnutrition Per prior note, pt has significant weight loss and not meeting daily nutritional requirement. Plan: - Dietitian consulted, recs 6 small meals, renal, Ensure Plus 8oz, Banatrol Plus - Continue Dronabinol 5mg PO BID - Ileostomy reversal not an option at this time per Dr. Suggs. High risk given her past surgical history. However, may consider referral to a tertiary Medical Center for reanastomosis of the GI tract after improvement of weight and nutritional status. - Start on TPN once PICC line inserted. - Once on TPN, will increase Sodium contents and d/c NaCl 0.9%. #Pre-renal STEPH likely secondary to dehydration from high ileostomy output - resolved Initial BUN to Mash Filter Cloth Changer ratio > 20. Plan: - nephrology consulted, appreciate recs. --> added Bicitra 30mL PO BID. Recs sodium bicarb tabs for discharge. - Held NaCl 0.9% today as patient will be getting PICC line for TPN. - monitor urine output - daily labs, monitor chemistry - renal dose med, avoid nephrotoxin - avoid contrast or offending mediations #Eletroclyte abnormalities #Hyperkelemia - resolved #Hyponatremia - improving #Hyperphosphatemia - resolved Consistent with short gut syndrome with STEPH from high ileostomy output Plan: - Careful correction of Na to avoid Osmotic Demyelination Syndrome (ODS) - Hyperkalemic cocktail given in ED (1000 mg of calcium gluconate IV, 1 amp of D50 IV, 5 units of regular insulin IV and 10 mg of continuous nebulized albuterol) - Kayexelate 30gm x 1 (09/21/25) - Daily Na check after started on TPN. - Recheck K level in AM, if still elevated, may consider another hyperkelemic cocktail. #Anion gap metabolic acidosis - resolved 09/21/25: Bicarb 18, AG 17. BUN 63 Likely secondary to GI losses vs uremia - Lactate 09/22/25 peaked at 3.5, downtrending - Likely resolve with fluid resuscitation Health maintenance Dispo: pending resolution of STEPH, hyperkelemia, hyponatremia DVT prophylaxis: HEPARIN GI prophylaxis: Protonix Antibiotics: N/A Bowel Regimen: N/A Diet: 6 small meals, high protein ensure, Banatrol Plus QID. On PPN, transition to TPN once PICC line inserted Lines: Peripheral IV Code status: Full code Case discussed with my senior resident Dr. Delong Case discussed with my attending Dr. Simone Persaud, PGY 1 Attending Provider Attestation/Addendum I have seen and examined the patient. I was physically present for the [place] portions of the services provided including history, physical exam, diagnosis, treatment plans and orders. I agree with assessment and plan of care as documented by residents. Patient seen and examined at bedside this morning, no acute overnight events. Appears comfortable and denies any new complaints. Continues to be on PPN, also tolerating oral diet. Despite good oral intake, high-dose loperamide, patient continues to have liquidy output from ileostomy, continues to have issues with absorption. We will change loperamide to Lomotil. Yesterday, patient had drop in sodium despite being on PPN, started on normal saline along with PPN and oral intake, sodium improved to 125 this morning. Creatinine also improved to 1.4 from 2.0 yesterday. Discussed with general surgery regarding possibility of reversal of ileostomy. Stated that with extensive surgery patient had, patient is at high risk if attempt at reanastomosis is made. Recommended to address the nutritional status at this time, if patient is able to regain weight and shows good improvement, reanastomosis may be considered at tertiary care center, appreciate recommendations. We will order PICC line for tomorrow, for continuation of long-term TPN. Plan to discuss with both case management and family regarding placement. Even though this this note was carefully revised there may still be minor errors in control room technician due to voice recognition software. Logan Mendiola MD
--- NOTE | 2025-09-27 12:30 | PC.SS ---
SS met with pt ying Nichole at bedside to discuss DC planning. 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 Home with HH is families only option at this time as pt TPN will most likely be her new baseline. Dionisio expressed concern with leaving pt home during working hours. Pt is ambulatory according to son, SS requested PT eval to get better idea of what pts needs will be. Plan for PICCLINE and start of TPN, pt will be monitored for 24-48hrs prior to DC home with HH. SS informed Team to put HH orders in so when [place] RN, is in they can start to work on process.
[2025-09-27 13:01] LABS: Sodium 132 mMol/L (136-145)
[2025-09-27] MEDS: HEPARIN SOD LOCK SYR 100 UNIT/ML 500 UNIT STFIELD (13:10)
[2025-09-27] MEDS: LIDOCAINE INJ PF 1% 30 ML VIAL EPID (13:10)
--- NOTE | 2025-09-27 14:05 | PC.NURSE ---
patient was brought down to IR from her room via wheelchair consent obtained from patient and Thuan Israel per patient and son they wanted the DR to attempt inserting the PICC line in the left arm patient prepped and draped time out performed with entire team present unfortunately left and right arm was unsuccessful
[2025-09-27] MEDS: HYDROMORPHONE HCL 2 MG TABLET PO (14:44)
[2025-09-27] MEDS: FAT EMULSIONS 20% IV 500 ML 32 ML IV (17:54)
[2025-09-27 18:58] LABS: Sodium 132 mMol/L (136-145)
[2025-09-27] MEDS: MELATONIN 3 MG TABLET 6 MG PO (20:52)
[2025-09-27] MEDS: SODIUM BICARBONATE 650 MG TABLET 325 MG PO (20:52)
--- NOTE | 2025-09-27 21:00 | PC.NURSE ---
Family member at bedside, states will change patient colostomy bag. assisted accordingly.
[2025-09-28] VITALS (8 sets, daily range): BP systolic 92–106; BP diastolic 55–67; PULSE 65–81; RESP 16–18; TEMP 36.2–36.9; O2SAT 92–98
[2025-09-28 05:42] LABS: Basophils # (Auto) 0.1 Thou/mm3 (0.0-0.2); Basophils % (Auto) 1 % (0-2.5); Eosinophils # (Auto) 0.4 Thou/mm3 (0.0-0.5); Eosinophils % (Auto) 7 % (0-10); Hematocrit 29.0 % (36.0-46.0); Hemoglobin 9.7 g/dL (12.0-16.0); Immature Granulocytes Auto 0.09 Thou/mm3 (0.00-0.00); Lymphocytes # (Auto) 1.8 Thou/mm3 (1.0-4.8); Lymphocytes % (Auto) 29 % (10-50); Mean Corpuscular HGB Conc 33.4 g/dl (31.0-37.0); Mean Corpuscular Hemoglobin 29.5 pg (25.0-35.0); Mean Corpuscular Volume 88 fL (80-100); Monocytes # (Auto) 0.4 Thou/mm3 (0.0-0.8); Monocytes % (Auto) 6 % (0-12); Neutrophils # (Auto) 3.5 Thou/mm3 (1.8-7.7); Neutrophils % (Auto) 57 % (37-80); Nucleated Red Blood Cell # 0.00 Thou/mm3 (0.00-0.00); Nucleated Red Blood Cell % 0 /100 WBC (0); Platelet Count 243 Thou/mm3 (140-440); RDW Standard Deviation 43.8 fL (36.4-46.3); Red Blood Count 3.29 Miln/mm3 (4.00-5.20); White Blood Count 6.2 Thou/mm3 (3.6-11.0)
[2025-09-28 06:28] LABS: Anion Gap 9 (7-16); BUN/Creatinine Ratio 39 Ratio (12-20); Blood Urea Nitrogen 27 mg/dL (9-23); Calcium 8.9 mg/dL (8.3-10.6); Carbon Dioxide 24.0 mMol/L (20.0-31.0); Chloride 99 mMol/L (98-107); Creatinine (Component) 0.7 mg/dL (0.6-1.3); Estimated Creatinine Clearance 57.1 mL/min (>60); Glucose 119 mg/dL (74-106); Magnesium 1.9 mg/dL (1.6-2.6); Osmolality,Calculated 270 (275-295); Phosphorous 2.6 mg/dL (2.4-5.1); Potassium 4.1 mMol/L (3.4-5.1); Sodium 132 mMol/L (136-145); eGFR > 60 See Note
--- NOTE | 2025-09-28 08:42 | ESPR_ITS ---
Documentation for date of: 09/28/25 Subjective Subjective Interval history: History of present illness: Patient comes back with the same diagnosis of acute renal failure, electrolyte imbalance with high output ileostomy losses. Seen in the emergency department. Sick looking. Home medications included vitamin D, B12, Pepcid, folic acid, Dilaudid, mirtazapine, multivitamin, thiamine, zinc. Blood pressure 103/75, heart rate 110, afebrile CBC normal except platelets 473.Sodium 117, potassium 5.7, bicarbonate 20.8, BUN 63, creatinine 3.5, GFR 14. Also noted 10 days ago her creatinine was 0.5. Calcium 10.3, magnesium 1.6, AST 103, ALT 100, alk phos 361, albumin 4.8, globulin 4.5, lipase 64. Urinalysis shows significant pyuria, urine sodium less than 10 Patient admitted for hyperkalemia in setting of prerenal STEPH secondary to high ileostomy output. Nephrology consulted for management of hyperkalemia and STEPH. 09/22/25: Patient seen and assessed at bedside. Reports she is feeling better. Overnight, normal saline stopped due to overcorrection of sodium, improved to 123. Dropped back to 119, restart IV NS at 125 mL/h. Goal sodium 125- 127, sodium check q6hr. potassium 4.7, chloride 86, bicarb 18.3, BUN 58, creatinine 2.6, GFR 28. A1c 6.0. Lactic acid 2.3. Calcium 9.5, phosphorus 4.8, magnesium 1.5, repleted. Still has mildly elevated liver enzymes. Started Bicitra due to GI bicarb losses, recommend discharging with sodium bicarb tablets. 09/23/25: Patient seen and assessed at bedside. Doing well. UOP 1.4L. Sodium 126, continue NS with goal 132. Potassium 4.0, chloride 92, bicarb 22.5, BUN 33, creatinine 1.4, GFR 42. Continue NS at 125 cc/hr and Bicitra. Patient is medically stable for discharge from nephrology standpoint if sodium continues to improve. Send with sodium bicarb tablets. 09/24/25: Patient seen and assessed at bedside. Had leakage of ileostomy bag. Sodium 129, started on PPN by primary team. Discontinue Bicitra as bicarb improved. 09/25/25: Patient seen and assessed at bedside. Reporting pain around ileostomy site, erythematous and tender. No leakage noted. Total output 1.5 L (700 cc stool, 800 cc urine). Sodium 121, potassium 4.2, chloride 83, BUN 40, creatinine 2.0 (from 1.1). Start on sodium chloride tablets 1g, encouraged oral hydration. On PPN with sodium 40mEq additive since yesterday. Continue to monitor sodium q6hr, goal 127-129. 09/27/25: Patient seen and assessed at bedside. Worsening irritation around ileostomy site due to persistent leakage. Sodium 133, potassium 4.0, chloride 100, bicarb 24.7, BUN 38, creatinine 0.7. Sodium additives maximized via PPN, continue salt tablets 1 g daily. Start sodium bicarb 325mg BID. Attempt to wean off NS. Plan to dc on TPN per primary team once sodium stabilized. Spoke to surgeon Dr. Suggs, patient may require higher level of care. 09/28/25: Patient seen and assessed at bedside. New ileostomy bag in place, draining well. Continues to have erythema around site. Sodium 132, all other electrolytes stable. Off NS, stable on sodium bicarb and sodium chloride tablets. Patient is medically stable for discharge from nephrology standpoint. Pending PICC line placement. Pending placement per primary team, family unable to manage TPN. Exam Vital Signs Temp Pulse Resp BP Pulse Ox O2 Del Method 97.1 F 81 16 92/67 96 Room Air 09/28/25 04:00 09/28/25 04:00 09/28/25 04:00 09/28/25 04:00 09/28/25 04:00 09/28/25 04:00 Narrative Exam Physical Exam General: Awake and in no acute distress. Conversational. Cachectic. HEENT: Patches of hair loss. Normocephalic, atraumatic, mucous membranes moist. Heart: Regular rate and rhythm, normal S1 and S2, no murmurs. Lungs: Clear to auscultation with no wheezing or crackles. Abdomen: Soft, nondistended, nontender, positive bowel sounds. No guarding or rebound tenderness. Diverticulum ileostomy with redness around the ileostomy site. Bag fluid with liquidy output Neurologic: Alert and oriented x3, no gross neurological deficit, and patient able to move all 4 extremities. Extremities: No edema. Skin: Erythema around ileostomy site. No ecchymoses. Objective Labs 09/29/25 04:37 09/29/25 04:37 Labs: Laboratory Results - last 24 hr 09/27/25 09/27/25 09/28/25 12:18 18:14 04:15 WBC 6.2 RBC 3.29 L Hgb 9.7 L Hct 29.0 L MCV 88 MCH 29.5 MCHC 33.4 RDW Std Deviation 43.8 Plt Count 243 Neut % (Auto) 57 Lymph % (Auto) 29 Antelope % (Auto) 6 Eos % (Auto) 7 Baso % (Auto) 1 Neut # (Auto) 3.5 Lymph # (Auto) 1.8 Antelope # (Auto) 0.4 Eos # (Auto) 0.4 Baso # (Auto) 0.1 Immature Gran # (Auto) 0.09 H Absolute Nucleated RBC 0.00 Immature Gran % 1 H Nucleated RBC % 0 Sodium 132 L 132 L 132 L Potassium 4.1 Chloride 99 Carbon Dioxide 24.0 Anion Gap 9 BUN 27 H Creatinine 0.7 Estim Creat Clear Calc 57.1 L eGFR > 60 BUN/Creatinine Ratio 39 H Glucose 119 H Calculated Osmolality 270 L Calcium 8.9 Phosphorus 2.6 Magnesium 1.9 Quality Measures Quality Measures VTE prophylaxis Advance care planning discussed with:: patient Assessment & Plan Assessment Current Active Medications: Generic Name Dose Route Start Last Admin Trade Name Freq PRN Reason Stop Dose Admin Acetaminophen 650 mg 09/21/25 15:15 Acetaminophen 325 Mg Tablet PO 10/21/25 15:14 Q6H PRN PAIN SCALE 1-3 (mild Cyanocobalamin 250 mcg 09/22/25 09:00 09/27/25 09:06 Cyanocobalamin 500 Mcg Tablet PO 10/22/25 08:59 250 mcg DAILY SHAWNA Administration Dextrose 25 ml 09/24/25 11:59 Dextrose 50%-Water Inj 50 Ml Syringe IV 10/24/25 11:58 Q15MIN PRN BG 50-70 responsive npo pt Dextrose 50 ml 09/24/25 11:59 Dextrose 50%-Water Inj 50 Ml Syringe IV 10/24/25 11:58 Q15MIN PRN BG <50 OR BG <70 & pt unresponsive Dronabinol 5 mg 09/22/25 21:00 09/27/25 20:52 Dronabinol 2.5 Mg Capsule PO 10/22/25 20:59 5 mg BID SHAWNA Administration Folic Acid 1 mg 09/22/25 09:00 09/27/25 09:05 Folic Acid 1 Mg Tablet PO 10/22/25 08:59 1 mg DAILY SHAWNA Administration Glucagon 1 mg 09/24/25 11:59 Glucagon Inj 1 Mg Vial IM Q15MIN PRN BG <70, and no IV access Heparin Sodium (Porcine) 5,000 unit 09/21/25 21:00 09/27/25 23:26 Heparin Sod Inj 5000 Unit/Ml Vial SC 10/05/25 20:59 5,000 unit BID SHAWNA Administration Hydromorphone HCl 2 mg 09/26/25 15:25 09/27/25 14:44 Hydromorphone Hcl 2 Mg Tablet PO 10/01/25 15:24 2 mg Q4HR PRN Administration pain 7-10 Fat Emulsion Intravenous 500 mls @ 32 mls/hr 09/24/25 18:00 09/27/25 17:54 Intralipid 20% Iv IV 10/24/25 17:59 32 mls/hr [id number] SHAWNA Administration Magnesium Sulfate 2 gm/ Amino 2,004 mls @ 85 mls/hr 09/27/25 18:00 09/27/25 17:54 Acids/Electrolytes/Dextrose IV 09/28/25 17:34 85 mls/hr .[id number] SHAWNA Administration Insulin Human Regular 0 unit 09/24/25 18:00 09/28/25 05:34 Insulin Hum Regular 1 Unit/0.01 Ml (Per Unit) SC 10/24/25 17:59 Not Given Q6HR SHAWNA Protocol Melatonin 6 mg 09/25/25 21:00 09/27/25 20:52 Melatonin 3 Mg Tablet PO 10/25/25 20:59 6 mg HS SHAWNA Administration Mirtazapine 15 mg 09/22/25 09:00 09/27/25 09:05 Mirtazapine 15 Mg Tablet PO 10/22/25 08:59 15 mg QDAY SHAWNA Administration Ondansetron HCl 4 mg 09/24/25 11:12 Ondansetron Inj 2 Mg/Ml Inj 2 Ml IVP 10/24/25 11:11 Q6HR PRN NAUSEA OR VOMITING Protocol Oxycodone/Acetaminophen 1 tab 09/26/25 15:24 09/27/25 14:28 Oxycodone/Apap 5/325 Tablet PO 10/01/25 15:23 1 tab Q6HR PRN Administration pain 4-6 Pantoprazole Sodium 40 mg 09/25/25 14:00 09/27/25 09:05 Pantoprazole Inj 40 Mg Vial IVP 10/25/25 13:59 40 mg QDAY SHAWNA Administration Sodium Bicarbonate 325 mg 09/27/25 09:15 09/27/25 20:52 Sodium Bicarbonate 650 Mg Tablet PO 10/27/25 09:14 325 mg BID SHAWNA Administration Sodium Chloride 3 ml 09/21/25 13:58 Sodium Chloride Rt Dania 0.9% 3 Ml Nebu INH 10/21/25 13:57 PRN PRN SOLN Sodium Chloride 1 gm 09/25/25 10:30 09/27/25 09:06 Sodium Chloride 1 Gm Tablet PO 10/25/25 10:29 1 gm DAILY SHAWNA Administration Thiamine HCl 100 mg 09/22/25 09:00 09/27/25 09:05 Thiamine 100 Mg Tablet PO 10/22/25 08:59 100 mg DAILY SHAWNA Administration Plan Patient is a 65 year old female with past medical history of invasive adenocarcinoma of the ascending colon s/p ex lap right hemicolectomy and ileotransverse anastomosis on 07/21 and an ex lap on 08/11 with resection of small bowel 2/2 multiple lacerations and takedown of anastomosis with diverting ileostomy who was admitted for hyperkalemia and hyponatremia. Nephrology consulted for hyperkalemia and STEPH 2/2 prerenal azotemia from high ileostomy losses. # Acute renal failure 2/2 prerenal azotemia from high output ileostomy losses. #Hypovolemic Hypotonic Hyponatremia (improving) #Hyperphosphatemia (resolved) #Hypercalcemia (resolved) #Hyperkalemia (resolved) #Multiple small bowel lacerations s/p ex lap and resection of small bowl with anastomosis and diverting ileostomy 08/11 #Invasive adenocarcinoma of ascending colon s/p R hemicolectomy with ilio transverse anastomosis 07/21 - Presented from PCP with hyperkalemia and hyponatremia and was sent to the ED for evaluation. Per chart review, patient has had ongoing electrolyte abnormalities likely secondary to short bowel syndrome given her history of extensive abdominal surgeries and ileostomy. - Sodium 117 on admission --> 123 (NS stopped) -> 119 -> 126 -> 129 -> 121 --> 132 - Potassium 5.7, calcium 10.3, phosphorus 5.3 on admission, all now within normal limits. - Creatinine 3.5 -> 2.6 -> 1.4 -> 0.7, back to baseline Plan: - On TPN with sodium additives (NaCl 60 mEq, sodium acetate 60 mEq) - Continue sodium chloride tablet 1g daily to maintain current sodium level - Continue sodium bicarb 325mg BID - Encouraged oral hydration while also on TPN - Strict INOs - Avoid nephrotoxic agents - Renally dose medications - Follow renal panel closely - Patient is medically stable for discharge from nephrology standpoint at this time. She has had ongoing and will continue to have electrolyte abnormalities secondary to short bowel syndrome given her history of extensive abdominal surgeries and ileostomy. Per surgeon Dr. Suggs, patient will likely require higher level of care despite poor prognosis. Pending placement per primary team. #Anion gap metabolic acidosis (resolved) - Anion gap 17 on admission --> 12 - Bicarb 18 -> 18.3 -> 22.5 -> 26.1 - Urine lytes: sodium <10, potassium 73, chloride <20. Positive urine anion gap, usually not associated with GI losses but likely in this case given high ileostomy output and significant abdominal surgical history. Plan: - Continue to monitor renal panel #Hypotension #Chronic elevated Alk phos #Lactic acidosis (resolved) #Calorie protein Malnutrition #Normocytic anemia - Defer to primary team for management Thank you for your consultation, please do not hesitate to reach out if you have any question or concern Patient plan of care was discussed with the attending physician, Dr. Suarez. Bella Hanks DO, PGY-1 Attending Provider Attestation/Addendum Patient seen and examined with resident physician Dr. Hanks. Note reviewed, agree with findings and recommendations. Patient with short gut syndrome. Significant GI/electrolyte losses. On PPN. Pending PICC line. Continue with salt tablets, sodium bicarbonate tablets, multivitamins. Noted she will be going home with home health care. Prognosis long-term poor
[2025-09-28] MEDS: SODIUM BICARBONATE 650 MG TABLET 325 MG PO ×2 (10:02→20:33)
[2025-09-28] MEDS: HEPARIN SOD INJ 5000 UNIT/ML VIAL SC ×2 (10:02→20:33)
[2025-09-28] MEDS: FOLIC ACID 1 MG TABLET PO (10:03)
[2025-09-28] MEDS: THIAMINE 100 MG TABLET PO (10:03)
[2025-09-28] MEDS: MIRTAZAPINE 15 MG TABLET PO (10:03)
--- NOTE | 2025-09-28 11:44 | ESPR_ITS ---
<Statement entered by Yunier Nichols MD - 10/07/25 08:27> I reviewed above note and agree with findings and plans. I have also personally examined the patient with medicine team and went over assessment and plan with medical team including international student counselor and resident physician. <Statement entered by Marian Adhikari MD - 09/28/25 15:50> In summary: A 65-year-old female with past medical history of invasive adenocarcinoma of the ascending colon status post hemicolectomy with ileotransverse colostomy on 07/21/2025, presenting with SNF with significant electrolyte abnormalities including severe hyperkalemia and hyponatremia. Her main issue unfortunately is long-term short gut syndrome as a result of colostomy mentioned above, is unable to absorb oral nutrition, with persistent watery stool. Potassium has been corrected. Sodium has been repleted adequately with normal saline. Currently on TPN, tolerating and maintaining adequate electrolyte levels. Attempted for PICC line yesterday was unsuccessful and will repeat today with IR. She does not qualify for LTAC and will be discharged on home with home health after PICC line placement. I?ve reviewed the note and agree with this assessment and plan, with the exceptions outlined above. I personally went over the labs, imaging, home medications, and prior records, and examined the patient. The case was also reviewed with the attending physician. Please note: this document was transcribed using voice recognition technology; minor inaccuracies may be present. Marian Adhikari DO PGY II Documentation for date of: 09/28/25 Subjective Subjective Interval history: Mrs. Washington is a [place] speaking, 65F with history of prediabetes and invasive adenocarcinoma of the ascending colon s/p right hemicolectomy with ileotransverse colostomy on 07/21/25 presented from SNF for hyperkelemia and hyponatremia, likely secondary to STEPH from short gut syndrome. 09/22/25: Overnight, ~800mL of D5W was given to avoid rapid correction of Na from 117 to 124. Na level this morning 119 with UOP ~1L past 24H. Patient seen and examined at bedside, no acute complaint, resting comfortably in bed. Still not much appetite, increased Marinol from 2.5mg to 5mg PO BID today. Nephrology recommended Bicitra 30mL PO BID, and patient should be discharged with sodium carbonate tablet due to high ileostomy output. 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 Plan of care discussed with patient, will continue NaCl 0.9% @ rate of 80ml/hr with Na check Q4H to avoid rapid correction. 09/23/25: NAOE. Na level 126 this morning and Meter Rep[employer] Shop Supervisor level improved to 1.4. Ileostomy output 1L. Will continue NaCl 0.9% @ rate of 125ml/hr today with frequent Na level check. Patient is clinically stable for discharge from nephrology standpoint if sodium continues to improve. However, given patient's recent dramatic weight loss, high ileostomy output, and frequent readmission, a discussion was held today at bedside via phone with patient and patient's son regarding the potential need to start patient on retirement TPN to support patient's nutrition status. At this time, the best option for disposition is home health with TPN. 09/24/25: No acute overnight events. Patient seen and examined at bedside. Appears comfortable and denies any new complaints. Had leakage of ileostomy bag, replaced by wound care nurse. Continues to have liquidy output in the ileostomy bag, we will increase loperamide dosing to 8 mg 4 times daily. Also added Zofran for nausea. Sodium level remained stable at 129. Discussed with dietitian, patient continues to have oral intake but unable to meet her goal. We will start her on PPN and monitor closely for stool output with loperamide. If patient does not respond to increasing dose of loperamide, we will plan for PICC line on Saturday for TPN. Vital signs are stable, kidney function is improving. 09/25/25: NAOE. Na decreased back to 121. Creatinine increased to 2. Salt tablet added. On exam, patient continues to be asymtomatic, on PPN. Loperamide increased to 16mg Q6H and Banatrol Plus to QID now. If patient continues to have high output from ileostomy bag, a PICC line may be needed on Saturday to start her on TPN. 09/26/25: Hypotensive overnight, 500mL LR bolus given with 10mg midodrine x1. BP this morning 92/58. Na improved to 125. Cr decrease to 1.4 from 2.0. Spoke with Dr. Suggs at bedside, suggested given patient's complicated surgical history, it is not advisable to pursue with ileostomy reversal due to significant morbidity and mortality. The best option at this point would be PICC line with TPN and home with home health. Patient may require TPN indefinitely to prevent future admissions to the hospital for electrolyte imbalance. 09/27/25: NAOE. Plan for PICC line today and start TPN. Meter [employer] Shop Supervisor 0.7. Na 133. Spoke with family at bedside, stated they would not be able to take care of the patient at home even with the help of home amanda nurse. farmworker livestock had already spoke with patient and family regarding their limited options, but will speak with them today. Patient was advised to obtain referral from her PCP to a tertiary Medical Center for reanastomosis of the GI tract after her nutritional status improve, but at this time, she will require TPN to prevent electrolyte imbalance. 09/28/25: NAOE. Na level stable at 132. Failed attempt for PICC line insertion yesterday despite multiple attempts, will try again today, if unsucessful, patient will likely require transfer to a different facility for PICC line placement. Patient complained of arm pains from PICC line attempt yesterday, will give patient 0.5mg of IV dilaudid prior to procedure. Plan to start TPN after PICC line insertion. Exam Vital Signs Temp Pulse Resp BP Pulse Ox O2 Del Method 98.4 F 76 18 106/62 97 Room Air 09/28/25 08:00 09/28/25 08:00 09/28/25 08:00 09/28/25 08:00 09/28/25 08:00 09/28/25 08:00 Narrative Exam General: Awake and in no acute distress. A/O x 3. Conversational. HEENT: Normocephalic, atraumatic Heart: Regular rate and rhythm. Lungs: Clear to auscultation with no wheezing or crackles. Abdomen: Soft, nondistended, nontender. No guarding or rebound tenderness. Transverse surgical scar with mild surrounding erythema appreciated. Ileostomy bag draining liquid contents with chuncks of small bowel contents. Neurologic: Alert and oriented x3, no gross neurological deficit. Extremities: Moving all extremities. No edema to LE. Skin: Dry, clean, intact. No ecchymosis. Ileostomy site appears erythematous, but without signs of infection. Objective Labs 09/28/25 04:15 09/28/25 04:15 Labs: Laboratory Results - last 24 hr 09/27/25 09/27/25 09/28/25 12:18 18:14 04:15 WBC 6.2 RBC 3.29 L Hgb 9.7 L Hct 29.0 L MCV 88 MCH 29.5 MCHC 33.4 RDW Std Deviation 43.8 Plt Count 243 Neut % (Auto) 57 Lymph % (Auto) 29 [place] % (Auto) 6 Eos % (Auto) 7 Baso % (Auto) 1 Neut # (Auto) 3.5 Lymph # (Auto) 1.8 [place] # (Auto) 0.4 Eos # (Auto) 0.4 Baso # (Auto) 0.1 Immature Gran # (Auto) 0.09 H Absolute Nucleated RBC 0.00 Immature Gran % 1 H Nucleated RBC % 0 Sodium 132 L 132 L 132 L Potassium 4.1 Chloride 99 Carbon Dioxide 24.0 Anion Gap 9 BUN 27 H Creatinine 0.7 Estim Creat Clear Calc 57.1 L eGFR > 60 BUN/Creatinine Ratio 39 H Glucose 119 H Calculated Osmolality 270 L Calcium 8.9 Phosphorus 2.6 Magnesium 1.9 Quality Measures Quality Measures VTE prophylaxis Advance care planning discussed with:: patient and child Assessment & Plan Assessment Current Active Medications: Generic Name Dose Route Start Last Admin Trade Name Freq PRN Reason Stop Dose Admin Acetaminophen 650 mg 09/21/25 15:15 Acetaminophen 325 Mg Tablet PO 10/21/25 15:14 Q6H PRN PAIN SCALE 1-3 (mild Cyanocobalamin 250 mcg 09/22/25 09:00 09/28/25 10:02 Cyanocobalamin 500 Mcg Tablet PO 10/22/25 08:59 250 mcg DAILY SHAWNA Administration Dextrose 25 ml 09/24/25 11:59 Dextrose 50%-Water Inj 50 Ml Syringe IV 10/24/25 11:58 Q15MIN PRN BG 50-70 responsive npo pt Dextrose 50 ml 09/24/25 11:59 Dextrose 50%-Water Inj 50 Ml Syringe IV 10/24/25 11:58 Q15MIN PRN BG <50 OR BG <70 & pt unresponsive Dronabinol 5 mg 09/22/25 21:00 09/28/25 10:01 Dronabinol 2.5 Mg Capsule PO 10/22/25 20:59 5 mg BID SHAWNA Administration Folic Acid 1 mg 09/22/25 09:00 09/28/25 10:03 Folic Acid 1 Mg Tablet PO 10/22/25 08:59 1 mg DAILY SHAWNA Administration Glucagon 1 mg 09/24/25 11:59 Glucagon Inj 1 Mg Vial IM Q15MIN PRN BG <70, and no IV access Heparin Sodium (Porcine) 5,000 unit 09/21/25 21:00 09/28/25 10:02 Heparin Sod Inj 5000 Unit/Ml Vial SC 10/05/25 20:59 5,000 unit BID SHAWNA Administration Hydromorphone HCl 2 mg 09/26/25 15:25 09/27/25 14:44 Hydromorphone Hcl 2 Mg Tablet PO 10/01/25 15:24 2 mg Q4HR PRN Administration pain 7-10 Fat Emulsion Intravenous 500 mls @ 32 mls/hr 09/24/25 18:00 09/27/25 17:54 Intralipid 20% Iv IV 10/24/25 17:59 32 mls/hr [id number] SHAWNA Administration Magnesium Sulfate 2 gm/ Amino 2,004 mls @ 85 mls/hr 09/27/25 18:00 09/27/25 17:54 Acids/Electrolytes/Dextrose IV 09/28/25 17:34 85 mls/hr .[id number] SHAWNA Administration Insulin Human Regular 0 unit 09/24/25 18:00 09/28/25 11:15 Insulin Hum Regular 1 Unit/0.01 Ml (Per Unit) SC 10/24/25 17:59 Not Given Q6HR SHAWNA Protocol Melatonin 6 mg 09/25/25 21:00 09/27/25 20:52 Melatonin 3 Mg Tablet PO 10/25/25 20:59 6 mg HS SHAWNA Administration Mirtazapine 15 mg 09/22/25 09:00 09/28/25 10:03 Mirtazapine 15 Mg Tablet PO 10/22/25 08:59 15 mg QDAY SHAWNA Administration Ondansetron HCl 4 mg 09/24/25 11:12 Ondansetron Inj 2 Mg/Ml Inj 2 Ml IVP 10/24/25 11:11 Q6HR PRN NAUSEA OR VOMITING Protocol Oxycodone/Acetaminophen 1 tab 09/26/25 15:24 09/27/25 14:28 Oxycodone/Apap 5/325 Tablet PO 10/01/25 15:23 1 tab Q6HR PRN Administration pain 4-6 Pantoprazole Sodium 40 mg 09/25/25 14:00 09/28/25 10:03 Pantoprazole Inj 40 Mg Vial IVP 10/25/25 13:59 40 mg QDAY SHAWNA Administration Sodium Bicarbonate 325 mg 09/27/25 09:15 09/28/25 10:02 Sodium Bicarbonate 650 Mg Tablet PO 10/27/25 09:14 325 mg BID SHAWNA Administration Sodium Chloride 3 ml 09/21/25 13:58 Sodium Chloride Rt Dania 0.9% 3 Ml Nebu INH 10/21/25 13:57 PRN PRN SOLN Sodium Chloride 1 gm 09/25/25 10:30 09/27/25 09:06 Sodium Chloride 1 Gm Tablet PO 10/25/25 10:29 1 gm DAILY SHAWNA Administration Thiamine HCl 100 mg 09/22/25 09:00 09/28/25 10:03 Thiamine 100 Mg Tablet PO 10/22/25 08:59 100 mg DAILY SHAWNA Administration Plan Mrs. Washington is a [place] speaking, 65F with history of invasive adenocarcinoma of the ascending colon s/p right hemicolectomy with ileotransverse colostomy on 07/21/25 presented from SNF for hyperkelemia and hyponatremia. #Short gut syndrome #High ileostomy output #Hx of invasive adenocarcinoma of the ascending colon s/p right hemicolectomy with ileotransverse colostomy (07/21/25) #Calorie protein Malnutrition Per prior note, pt has significant weight loss and not meeting daily nutritional requirement. Plan: - Dietitian consulted, recs 6 small meals, renal, Ensure Plus 8oz, Banatrol Plus - Continue Dronabinol 5mg PO BID - Ileostomy reversal not an option at this time per Dr. Suggs. High risk given her past surgical history. However, may consider referral to a tertiary Medical Center for reanastomosis of the GI tract after improvement of weight and nutritional status. - Start on TPN once PICC line inserted. - Once on TPN, will increase Sodium contents and d/c NaCl 0.9%. #Pre-renal STEPH likely secondary to dehydration from high ileostomy output - resolved Initial BUN to Meter [employer] Shop Supervisor ratio > 20. Plan: - nephrology consulted, appreciate recs. --> added Bicitra 30mL PO BID. Recs sodium bicarb tabs for discharge. - Held NaCl 0.9% today as patient will be getting PICC line for TPN. - monitor urine output - daily labs, monitor chemistry - renal dose med, avoid nephrotoxin - avoid contrast or offending mediations #Eletroclyte abnormalities #Hyperkelemia - resolved #Hyponatremia - improving #Hyperphosphatemia - resolved Consistent with short gut syndrome with STEPH from high ileostomy output Plan: - Careful correction of Na to avoid Osmotic Demyelination Syndrome (ODS) - Hyperkalemic cocktail given in ED (1000 mg of calcium gluconate IV, 1 amp of D50 IV, 5 units of regular insulin IV and 10 mg of continuous nebulized albuterol) - Kayexelate 30gm x 1 (09/21/25) - Daily Na check after started on TPN. - Recheck K level in AM, if still elevated, may consider another hyperkelemic cocktail. #Anion gap metabolic acidosis - resolved 09/21/25: Bicarb 18, AG 17. BUN 63 Likely secondary to GI losses vs uremia - Lactate 09/22/25 peaked at 3.5, downtrending - Likely resolve with fluid resuscitation Health maintenance Dispo: pending resolution of STEPH, hyperkelemia, hyponatremia DVT prophylaxis: HEPARIN GI prophylaxis: Protonix Antibiotics: N/A Bowel Regimen: N/A Diet: 6 small meals, high protein ensure, Banatrol Plus QID. On PPN, transition to TPN once PICC line inserted Lines: Peripheral IV Code status: Full code Case discussed with my senior resident Dr. Adhikari Case discussed with my attending Dr. Simone Persaud, PGY 1 Attending Provider Attestation/Addendum I have seen and examined the patient. I was physically present for the [place] portions of the services provided including history, physical exam, diagnosis, treatment plans and orders. I agree with assessment and plan of care as documented by residents. Patient seen and examined at bedside this morning, no acute overnight events. Appears comfortable and denies any new complaints. Continues to be on PPN, also tolerating oral diet. Despite good oral intake, high-dose loperamide, patient continues to have liquidy output from ileostomy, continues to have issues with absorption. We will change loperamide to Lomotil. Yesterday, patient had drop in sodium despite being on PPN, started on normal saline along with PPN and oral intake, sodium improved to 125 this morning. Creatinine also improved to 1.4 from 2.0 yesterday. Discussed with general surgery regarding possibility of reversal of ileostomy. Stated that with extensive surgery patient had, patient is at high risk if attempt at reanastomosis is made. Recommended to address the nutritional status at this time, if patient is able to regain weight and shows good improvement, reanastomosis may be considered at tertiary care center, appreciate recommendations. We will order PICC line for tomorrow, for continuation of long-term TPN. Plan to discuss with both case management and family regarding placement. Even though this this note was carefully revised there may still be minor errors in it consulting manager due to voice recognition software. Logan Mendiola MD
--- NOTE | 2025-09-28 14:02 | PC.NURSE ---
pt refusing picc line today. aware
--- NOTE | 2025-09-28 14:45 | PC.NURSE ---
pt initally refused Picc line insertion wanted to do tomorrow due to soreness in arm from attempts day before. MD was made aware. Md talked to pt and convinced pt to have picc line inserted. Pt agreed if dilaudid is given before picc line insertion attempt. Notified collaborating supervising physician that pt changed her mind, however they wiere not able to take in pt anymore for today. They will attempt tomorrow 09/29/25
[2025-09-28] MEDS: MELATONIN 3 MG TABLET 6 MG PO (20:33)
[2025-09-29] VITALS (11 sets, daily range): BP systolic 84–106; BP diastolic 51–61; PULSE 61–109; RESP 14–19; TEMP 36.1–37.1; O2SAT 98–100; BMI 18.8
--- NOTE | 2025-09-29 | XR_ITS ---
Examination: Ultrasound-guided needle placement right basilic vein. Dual-lumen central line placement (PICC line). Fluoroscopy AP chest, portable, single view Exam date and time: September 29, 2025, 1432 hours INDICATIONS: Need for long-term TPN A timeout was completed verifying correct patient, procedure, site, positioning Informed consent provided Technique: The patient's site was prepped and draped in sterile fashion. Maximum Sterile Barrier Technique used including cap, mask, sterile gown, sterile gloves, and sterile full body drape. If ultrasound technique used: sterile gel and sterile probe covers. Hand Hygiene performed using proper scrub, soap and water, or alcohol-based hand rub. Site right portable apparatus utilized to confirm patency of the right basilic vein Utilizing ultrasonographic guidance successful 21-gauge needle puncture into the right basilic vein Ultrasound images recorded and stored. 5 cc 1% lidocaine administered for local anesthetic. Successful micropuncture with a 21-gauge needle is performed. 0.18 wire guide is then introduced into the SVC under fluoroscopic guidance. Dual-lumen catheter dilator is then introduced, followed by the catheter in the SVC and proper position under fluoroscopic guidance. Successful aspiration of blood and flushing with heparinized saline is then performed in the 2 venous limbs. The catheter sutured in place. Findings: Under fluoroscopy, the tip of the catheter is in good position in the vena cava. Portable chest x-ray, post line placement is ordered. Estimated blood loss 3 cc The patient tolerated the procedure well and was in stable and satisfactory condition at completion of the procedure Impression: Successful ultrasound-guided needle placement right basilic vein Successful placement of dual lumen central line, percutaneous Fluoroscopy 0.1-minute radiation dose 0.38 mGy 1 spot fluoroscopic chest. AP chest completion procedure demonstrates satisfactory position central line. May use central line.
[2025-09-29 05:38] LABS: Basophils # (Auto) 0.0 Thou/mm3 (0.0-0.2); Basophils % (Auto) 1 % (0-2.5); Eosinophils # (Auto) 0.4 Thou/mm3 (0.0-0.5); Eosinophils % (Auto) 6 % (0-10); Hematocrit 29.0 % (36.0-46.0); Hemoglobin 9.7 g/dL (12.0-16.0); Immature Granulocytes Auto 0.08 Thou/mm3 (0.00-0.00); Lymphocytes # (Auto) 1.9 Thou/mm3 (1.0-4.8); Lymphocytes % (Auto) 30 % (10-50); Mean Corpuscular HGB Conc 33.4 g/dl (31.0-37.0); Mean Corpuscular Hemoglobin 29.1 pg (25.0-35.0); Mean Corpuscular Volume 87 fL (80-100); Monocytes # (Auto) 0.5 Thou/mm3 (0.0-0.8); Monocytes % (Auto) 9 % (0-12); Neutrophils # (Auto) 3.3 Thou/mm3 (1.8-7.7); Neutrophils % (Auto) 54 % (37-80); Nucleated Red Blood Cell # 0.00 Thou/mm3 (0.00-0.00); Nucleated Red Blood Cell % 0 /100 WBC (0); Platelet Count 225 Thou/mm3 (140-440); RDW Standard Deviation 44.5 fL (36.4-46.3); Red Blood Count 3.33 Miln/mm3 (4.00-5.20); White Blood Count 6.2 Thou/mm3 (3.6-11.0)
[2025-09-29 06:00] LABS: Anion Gap 9 (7-16); BUN/Creatinine Ratio 42 Ratio (12-20); Blood Urea Nitrogen 25 mg/dL (9-23); Calcium 8.5 mg/dL (8.3-10.6); Carbon Dioxide 23.6 mMol/L (20.0-31.0); Chloride 102 mMol/L (98-107); Creatinine (Component) 0.6 mg/dL (0.6-1.3); Estimated Creatinine Clearance 66.6 mL/min (>60); Glucose 121 mg/dL (74-106); Magnesium 2.0 mg/dL (1.6-2.6); Osmolality,Calculated 275 (275-295); Phosphorous 3.3 mg/dL (2.4-5.1); Potassium 4.3 mMol/L (3.4-5.1); Sodium 135 mMol/L (136-145); eGFR > 60 See Note
[2025-09-29] MEDS: HEPARIN SOD INJ 5000 UNIT/ML VIAL SC ×2 (08:48→20:17)
[2025-09-29] MEDS: SODIUM BICARBONATE 650 MG TABLET 325 MG PO ×2 (08:48→21:33)
[2025-09-29] MEDS: MIRTAZAPINE 15 MG TABLET PO (08:48)
[2025-09-29] MEDS: THIAMINE 100 MG TABLET PO (08:48)
[2025-09-29] MEDS: SODIUM CHLORIDE 1 GM TABLET PO (08:48)
[2025-09-29] MEDS: FOLIC ACID 1 MG TABLET PO (08:48)
--- NOTE | 2025-09-29 08:55 | ESPR_ITS ---
Documentation for date of: 09/29/25 Subjective Subjective Interval history: History of present illness: Patient comes back with the same diagnosis of acute renal failure, electrolyte imbalance with high output ileostomy losses. Seen in the emergency department. Sick looking. Home medications included vitamin D, B12, Pepcid, folic acid, Dilaudid, mirtazapine, multivitamin, thiamine, zinc. Blood pressure 103/75, heart rate 110, afebrile CBC normal except platelets 473.Sodium 117, potassium 5.7, bicarbonate 20.8, BUN 63, creatinine 3.5, GFR 14. Also noted 10 days ago her creatinine was 0.5. Calcium 10.3, magnesium 1.6, AST 103, ALT 100, alk phos 361, albumin 4.8, globulin 4.5, lipase 64. Urinalysis shows significant pyuria, urine sodium less than 10 Patient admitted for hyperkalemia in setting of prerenal STEPH secondary to high ileostomy output. Nephrology consulted for management of hyperkalemia and STEPH. 09/22/25: Patient seen and assessed at bedside. Reports she is feeling better. Overnight, normal saline stopped due to overcorrection of sodium, improved to 123. Dropped back to 119, restart IV NS at 125 mL/h. Goal sodium 125- 127, sodium check q6hr. potassium 4.7, chloride 86, bicarb 18.3, BUN 58, creatinine 2.6, GFR 28. A1c 6.0. Lactic acid 2.3. Calcium 9.5, phosphorus 4.8, magnesium 1.5, repleted. Still has mildly elevated liver enzymes. Started Bicitra due to GI bicarb losses, recommend discharging with sodium bicarb tablets. 09/23/25: Patient seen and assessed at bedside. Doing well. UOP 1.4L. Sodium 126, continue NS with goal 132. Potassium 4.0, chloride 92, bicarb 22.5, BUN 33, creatinine 1.4, GFR 42. Continue NS at 125 cc/hr and Bicitra. Patient is medically stable for discharge from nephrology standpoint if sodium continues to improve. Send with sodium bicarb tablets. 09/24/25: Patient seen and assessed at bedside. Had leakage of ileostomy bag. Sodium 129, started on PPN by primary team. Discontinue Bicitra as bicarb improved. 09/25/25: Patient seen and assessed at bedside. Reporting pain around ileostomy site, erythematous and tender. No leakage noted. Total output 1.5 L (700 cc stool, 800 cc urine). Sodium 121, potassium 4.2, chloride 83, BUN 40, creatinine 2.0 (from 1.1). Start on sodium chloride tablets 1g, encouraged oral hydration. On PPN with sodium 40mEq additive since yesterday. Continue to monitor sodium q6hr, goal 127-129. 09/27/25: Patient seen and assessed at bedside. Worsening irritation around ileostomy site due to persistent leakage. Sodium 133, potassium 4.0, chloride 100, bicarb 24.7, BUN 38, creatinine 0.7. Sodium additives maximized via PPN, continue salt tablets 1 g daily. Start sodium bicarb 325mg BID. Attempt to wean off NS. Plan to dc on TPN per primary team once sodium stabilized. Spoke to surgeon Dr. Suggs, patient may require higher level of care. 09/28/25: Patient seen and assessed at bedside. New ileostomy bag in place, draining well. Continues to have erythema around site. Sodium 132, all other electrolytes stable. Off NS, stable on sodium bicarb and sodium chloride tablets. Patient is medically stable for discharge from nephrology standpoint. Pending placement per primary team. 09/29/25: Patient seen and assessed at bedside. Sodium 135, continue current medical management. Pending PICC line placement today. Plan to discharge to home with home health per primary team. Exam Vital Signs Temp Pulse Resp BP Pulse Ox O2 Del Method 97.0 F 76 16 106/61 98 Room Air 09/29/25 08:00 09/29/25 08:00 09/29/25 08:00 09/29/25 08:00 09/29/25 08:00 09/29/25 08:00 Narrative Exam Physical Exam General: Awake and in no acute distress. Conversational. Cachectic. HEENT: Patches of hair loss. Normocephalic, atraumatic, mucous membranes moist. Heart: Regular rate and rhythm, normal S1 and S2, no murmurs. Lungs: Clear to auscultation with no wheezing or crackles. Abdomen: Soft, nondistended, nontender, positive bowel sounds. No guarding or rebound tenderness. Diverticulum ileostomy with redness around the ileostomy site. Bag fluid with liquidy output Neurologic: Alert and oriented x3, no gross neurological deficit, and patient able to move all 4 extremities. Extremities: No edema. Skin: Erythema around ileostomy site. No ecchymoses. Objective Labs 09/29/25 04:37 09/29/25 04:37 Labs: Laboratory Results - last 24 hr 09/29/25 04:37 WBC 6.2 RBC 3.33 L Hgb 9.7 L Hct 29.0 L MCV 87 MCH 29.1 MCHC 33.4 RDW Std Deviation 44.5 Plt Count 225 Neut % (Auto) 54 Lymph % (Auto) 30 [place] % (Auto) 9 Eos % (Auto) 6 Baso % (Auto) 1 Neut # (Auto) 3.3 Lymph # (Auto) 1.9 [place] # (Auto) 0.5 Eos # (Auto) 0.4 Baso # (Auto) 0.0 Immature Gran # (Auto) 0.08 H Absolute Nucleated RBC 0.00 Immature Gran % 1 H Nucleated RBC % 0 Sodium 135 L Potassium 4.3 Chloride 102 Carbon Dioxide 23.6 Anion Gap 9 BUN 25 H Creatinine 0.6 Estim Creat Clear Calc 66.6 eGFR > 60 BUN/Creatinine Ratio 42 H Glucose 121 H Calculated Osmolality 275 Calcium 8.5 Phosphorus 3.3 Magnesium 2.0 Quality Measures Quality Measures VTE prophylaxis Advance care planning discussed with:: patient Assessment & Plan Assessment Current Active Medications: Generic Name Dose Route Start Last Admin Trade Name Freq PRN Reason Stop Dose Admin Acetaminophen 650 mg 09/21/25 15:15 Acetaminophen 325 Mg Tablet PO 10/21/25 15:14 Q6H PRN PAIN SCALE 1-3 (mild Cyanocobalamin 250 mcg 09/22/25 09:00 09/29/25 08:47 Cyanocobalamin 500 Mcg Tablet PO 10/22/25 08:59 250 mcg DAILY SHAWNA Administration Dextrose 25 ml 09/24/25 11:59 Dextrose 50%-Water Inj 50 Ml Syringe IV 10/24/25 11:58 Q15MIN PRN BG 50-70 responsive npo pt Dextrose 50 ml 09/24/25 11:59 Dextrose 50%-Water Inj 50 Ml Syringe IV 10/24/25 11:58 Q15MIN PRN BG <50 OR BG <70 & pt unresponsive Dronabinol 5 mg 09/22/25 21:00 09/29/25 08:47 Dronabinol 2.5 Mg Capsule PO 10/22/25 20:59 5 mg BID SHAWNA Administration Folic Acid 1 mg 09/22/25 09:00 09/29/25 08:48 Folic Acid 1 Mg Tablet PO 10/22/25 08:59 1 mg DAILY SHAWNA Administration Glucagon 1 mg 09/24/25 11:59 Glucagon Inj 1 Mg Vial IM Q15MIN PRN BG <70, and no IV access Heparin Sodium (Porcine) 5,000 unit 09/21/25 21:00 09/29/25 08:48 Heparin Sod Inj 5000 Unit/Ml Vial SC 10/05/25 20:59 5,000 unit BID SHAWNA Administration Hydromorphone HCl 2 mg 09/26/25 15:25 09/27/25 14:44 Hydromorphone Hcl 2 Mg Tablet PO 10/01/25 15:24 2 mg Q4HR PRN Administration pain 7-10 Hydromorphone HCl 0.5 mg 09/28/25 14:22 Hydromorphone Inj 2 Mg/Ml Vial IVP X1 PRN give 15 min before PICC line insertion for pain Fat Emulsion Intravenous 500 mls @ 32 mls/hr 09/24/25 18:00 09/27/25 17:54 Intralipid 20% Iv IV 10/24/25 17:59 32 mls/hr [id number] SHAWNA Administration Magnesium Sulfate 2 gm/ Sodium 2,026.5 mls @ 85 mls/hr 09/28/25 17:30 09/28/25 17:49 Chloride 70 meq/ Potassium IV 09/29/25 17:20 85 mls/hr Phosphate 15 mmol/ Amino Acids .[id number] SHAWNA Administration Insulin Human Regular 0 unit 09/24/25 18:00 09/29/25 05:16 Insulin Hum Regular 1 Unit/0.01 Ml (Per Unit) SC 10/24/25 17:59 Not Given Q6HR SHAWNA Protocol Melatonin 6 mg 09/25/25 21:00 09/28/25 20:33 Melatonin 3 Mg Tablet PO 10/25/25 20:59 6 mg HS SHAWNA Administration Mirtazapine 15 mg 09/22/25 09:00 09/29/25 08:48 Mirtazapine 15 Mg Tablet PO 10/22/25 08:59 15 mg QDAY SHAWNA Administration Ondansetron HCl 4 mg 09/24/25 11:12 Ondansetron Inj 2 Mg/Ml Inj 2 Ml IVP 10/24/25 11:11 Q6HR PRN NAUSEA OR VOMITING Protocol Oxycodone/Acetaminophen 1 tab 09/26/25 15:24 09/28/25 13:29 Oxycodone/Apap 5/325 Tablet PO 10/01/25 15:23 1 tab Q6HR PRN Administration pain 4-6 Pantoprazole Sodium 40 mg 09/25/25 14:00 09/29/25 08:47 Pantoprazole Inj 40 Mg Vial IVP 10/25/25 13:59 40 mg QDAY SHAWNA Administration Sodium Bicarbonate 325 mg 09/27/25 09:15 09/29/25 08:48 Sodium Bicarbonate 650 Mg Tablet PO 10/27/25 09:14 325 mg BID SHAWNA Administration Sodium Chloride 3 ml 09/21/25 13:58 Sodium Chloride Rt Dania 0.9% 3 Ml Nebu INH 10/21/25 13:57 PRN PRN SOLN Sodium Chloride 1 gm 09/25/25 10:30 09/29/25 08:48 Sodium Chloride 1 Gm Tablet PO 10/25/25 10:29 1 gm DAILY SHAWNA Administration Thiamine HCl 100 mg 09/22/25 09:00 09/29/25 08:48 Thiamine 100 Mg Tablet PO 10/22/25 08:59 100 mg DAILY SHAWNA Administration Plan Patient is a 65 year old female with past medical history of invasive adenocarcinoma of the ascending colon s/p ex lap right hemicolectomy and ileotransverse anastomosis on 07/21 and an ex lap on 08/11 with resection of small bowel 2/2 multiple lacerations and takedown of anastomosis with diverting ileostomy who was admitted for hyperkalemia and hyponatremia. Nephrology consulted for hyperkalemia and STEPH 2/2 prerenal azotemia from high ileostomy losses. # Acute renal failure 2/2 prerenal azotemia from high output ileostomy losses. #Hypovolemic Hypotonic Hyponatremia (improving) #Hyperphosphatemia (resolved) #Hypercalcemia (resolved) #Hyperkalemia (resolved) #Multiple small bowel lacerations s/p ex lap and resection of small bowl with anastomosis and diverting ileostomy 08/11 #Invasive adenocarcinoma of ascending colon s/p R hemicolectomy with ilio transverse anastomosis 07/21 - Presented from PCP with hyperkalemia and hyponatremia and was sent to the ED for evaluation. Per chart review, patient has had ongoing electrolyte abnormalities likely secondary to short bowel syndrome given her history of extensive abdominal surgeries and ileostomy. - Sodium 117 on admission --> 123 (NS stopped) -> 119 -> 126 -> 129 -> 121 --> 132 - Potassium 5.7, calcium 10.3, phosphorus 5.3 on admission, all now within normal limits. - Creatinine 3.5 -> 2.6 -> 1.4 -> 0.7, back to baseline Plan: - On PPN with sodium additives (NaCl 60 mEq, sodium acetate 60 mEq) - Continue sodium chloride tablet 1g daily to maintain current sodium level - Continue sodium bicarb 325mg BID - Encouraged oral hydration while also on PPN - Strict INOs - Avoid nephrotoxic agents - Renally dose medications - Follow renal panel closely - Patient is medically stable for discharge from nephrology standpoint at this time. She has had ongoing and will continue to have electrolyte abnormalities secondary to short bowel syndrome given her history of extensive abdominal surgeries and ileostomy. Per surgeon Dr. Suggs, patient will likely require higher level of care despite poor prognosis. Pending discharge to home with home health per primary team. #Anion gap metabolic acidosis (resolved) - Anion gap 17 on admission --> 12 - Bicarb 18 -> 18.3 -> 22.5 -> 26.1 - Urine lytes: sodium <10, potassium 73, chloride <20. Positive urine anion gap, usually not associated with GI losses but likely in this case given high ileostomy output and significant abdominal surgical history. Plan: - Continue to monitor renal panel #Hypotension #Chronic elevated Alk phos #Lactic acidosis (resolved) #Calorie protein Malnutrition #Normocytic anemia - Defer to primary team for management Thank you for your consultation, please do not hesitate to reach out if you have any question or concern Patient plan of care was discussed with the attending physician, Dr. Suarez. Bella Hanks DO, PGY-1 Attending Provider Attestation/Addendum Patient seen and examined with resident physician Dr. Hanks. Note reviewed, agree with findings and recommendations. Patient with short gut syndrome. Significant GI/electrolyte losses. On PPN. Pending PICC line. Continue with salt tablets, sodium bicarbonate tablets, multivitamins. Noted she will be going home with home health care. Prognosis long-term poor
--- NOTE | 2025-09-29 09:58 | ESPR_ITS ---
<Statement entered by Yunier Nichols MD - 10/07/25 09:14> I reviewed above note and agree with findings and plans. I have also personally examined the patient with medicine team and went over assessment and plan with medical team including international marketing specialist and resident physician. <Statement entered by Jonahtan Purvis MD - 09/29/25 15:37> Patient was examined and case was reviewed with team including attending physician. Note reviewed, I agree with most of its contents and agree with the patient's care as documented by Dr. Persaud Patient seen today at the bedside found awake, alert, orientedx3. No overnight events reported. Vital signs and labs reviewed. Patient still pending PICC line placement for TPN. Final disposition for patient will be Home with Home health. Will continue to monitor electrolyte disturbance and replete as tolerated. Case discussed with my attending Dr. Simone Purvis MD PGY-2 Documentation for date of: 09/29/25 Subjective Subjective Interval history: Mrs. Washington is a Micronesian speaking, 65F with history of prediabetes and invasive adenocarcinoma of the ascending colon s/p right hemicolectomy with ileotransverse colostomy on 07/21/25 presented from SNF for hyperkelemia and hyponatremia, likely secondary to STEPH from short gut syndrome. 09/22/25: Overnight, ~800mL of D5W was given to avoid rapid correction of Na from 117 to 124. Na level this morning 119 with UOP ~1L past 24H. Patient seen and examined at bedside, no acute complaint, resting comfortably in bed. Still not much appetite, increased Marinol from 2.5mg to 5mg PO BID today. Nephrology recommended Bicitra 30mL PO BID, and patient should be discharged with sodium carbonate tablet due to high ileostomy output. 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 Plan of care discussed with patient, will continue NaCl 0.9% @ rate of 80ml/hr with Na check Q4H to avoid rapid correction. 09/23/25: NAOE. Na level 126 this morning and Hook And Eye Sewing Machine Operator level improved to 1.4. Ileostomy output 1L. Will continue NaCl 0.9% @ rate of 125ml/hr today with frequent Na level check. Patient is clinically stable for discharge from nephrology standpoint if sodium continues to improve. However, given patient's recent dramatic weight loss, high ileostomy output, and frequent readmission, a discussion was held today at bedside via phone with patient and patient's son regarding the potential need to start patient on termite renewal inspector TPN to support patient's nutrition status. At this time, the best option for disposition is home health with TPN. 09/24/25: No acute overnight events. Patient seen and examined at bedside. Appears comfortable and denies any new complaints. Had leakage of ileostomy bag, replaced by wound care nurse. Continues to have liquidy output in the ileostomy bag, we will increase loperamide dosing to 8 mg 4 times daily. Also added Zofran for nausea. Sodium level remained stable at 129. Discussed with dietitian, patient continues to have oral intake but unable to meet her goal. We will start her on PPN and monitor closely for stool output with loperamide. If patient does not respond to increasing dose of loperamide, we will plan for PICC line on Saturday for TPN. Vital signs are stable, kidney function is improving. 09/25/25: NAOE. Na decreased back to 121. Creatinine increased to 2. Salt tablet added. On exam, patient continues to be asymtomatic, on PPN. Loperamide increased to 16mg Q6H and Banatrol Plus to QID now. If patient continues to have high output from ileostomy bag, a PICC line may be needed on Saturday to start her on TPN. 09/26/25: Hypotensive overnight, 500mL LR bolus given with 10mg midodrine x1. BP this morning 92/58. Na improved to 125. Cr decrease to 1.4 from 2.0. Spoke with Dr. Suggs at bedside, suggested given patient's complicated surgical history, it is not advisable to pursue with ileostomy reversal due to significant morbidity and mortality. The best option at this point would be PICC line with TPN and home with home health. Patient may require TPN indefinitely to prevent future admissions to the hospital for electrolyte imbalance. 09/27/25: NAOE. Plan for PICC line today and start TPN. Hook And Eye Sewing Machine Operator 0.7. Na 133. Spoke with family at bedside, stated they would not be able to take care of the patient at home even with the help of home amanda nurse. composite worker had already spoke with patient and family regarding their limited options, but will speak with them today. Patient was advised to obtain referral from her PCP to a tertiary Medical Center for reanastomosis of the GI tract after her nutritional status improve, but at this time, she will require TPN to prevent electrolyte imbalance. 09/28/25: NAOE. Na level stable at 132. Failed attempt for PICC line insertion yesterday despite multiple attempts, will try again today, if unsucessful, patient will likely require transfer to a different facility for PICC line placement. Patient complained of arm pains from PICC line attempt yesterday, will give patient 0.5mg of IV dilaudid prior to procedure. Plan to start TPN after PICC line insertion. 09/29/25: NAOE. Na level 135. Patient did not get her PICC line yesterday due to schedule availbility. Plan to get PICC line placed today with IR pending availbility. Patient will need PICC line and TPN prior to discharge. Exam Vital Signs Temp Pulse Resp BP Pulse Ox O2 Del Method 97.0 F 76 16 106/61 98 Room Air 09/29/25 08:00 09/29/25 08:00 09/29/25 08:00 09/29/25 08:00 09/29/25 08:00 09/29/25 08:00 Narrative Exam General: Awake and in no acute distress. A/O x 3. Conversational. HEENT: Normocephalic, atraumatic Heart: Regular rate and rhythm. Lungs: Clear to auscultation with no wheezing or crackles. Abdomen: Soft, nondistended, nontender. No guarding or rebound tenderness. Transverse surgical scar. Ileostomy bag draining liquid contents. Neurologic: Alert and oriented x3, no gross neurological deficit. Extremities: Moving all extremities. No edema to LE. Skin: Dry, clean, intact. No ecchymosis. Ileostomy site appears erythematous, but without signs of infection. Objective Labs 09/29/25 04:37 09/29/25 04:37 Labs: Laboratory Results - last 24 hr 09/29/25 04:37 WBC 6.2 RBC 3.33 L Hgb 9.7 L Hct 29.0 L MCV 87 MCH 29.1 MCHC 33.4 RDW Std Deviation 44.5 Plt Count 225 Neut % (Auto) 54 Lymph % (Auto) 30 [place] % (Auto) 9 Eos % (Auto) 6 Baso % (Auto) 1 Neut # (Auto) 3.3 Lymph # (Auto) 1.9 [place] # (Auto) 0.5 Eos # (Auto) 0.4 Baso # (Auto) 0.0 Immature Gran # (Auto) 0.08 H Absolute Nucleated RBC 0.00 Immature Gran % 1 H Nucleated RBC % 0 Sodium 135 L Potassium 4.3 Chloride 102 Carbon Dioxide 23.6 Anion Gap 9 BUN 25 H Creatinine 0.6 Estim Creat Clear Calc 66.6 eGFR > 60 BUN/Creatinine Ratio 42 H Glucose 121 H Calculated Osmolality 275 Calcium 8.5 Phosphorus 3.3 Magnesium 2.0 Quality Measures Quality Measures VTE prophylaxis Advance care planning discussed with:: patient Assessment & Plan Assessment Current Active Medications: Generic Name Dose Route Start Last Admin Trade Name Freq PRN Reason Stop Dose Admin Acetaminophen 650 mg 09/21/25 15:15 Acetaminophen 325 Mg Tablet PO 10/21/25 15:14 Q6H PRN PAIN SCALE 1-3 (mild Cyanocobalamin 250 mcg 09/22/25 09:00 09/29/25 08:47 Cyanocobalamin 500 Mcg Tablet PO 10/22/25 08:59 250 mcg DAILY SHAWNA Administration Dextrose 25 ml 09/24/25 11:59 Dextrose 50%-Water Inj 50 Ml Syringe IV 10/24/25 11:58 Q15MIN PRN BG 50-70 responsive npo pt Dextrose 50 ml 09/24/25 11:59 Dextrose 50%-Water Inj 50 Ml Syringe IV 10/24/25 11:58 Q15MIN PRN BG <50 OR BG <70 & pt unresponsive Dronabinol 5 mg 09/22/25 21:00 09/29/25 08:47 Dronabinol 2.5 Mg Capsule PO 10/22/25 20:59 5 mg BID SHAWNA Administration Folic Acid 1 mg 09/22/25 09:00 09/29/25 08:48 Folic Acid 1 Mg Tablet PO 10/22/25 08:59 1 mg DAILY SHAWNA Administration Glucagon 1 mg 09/24/25 11:59 Glucagon Inj 1 Mg Vial IM Q15MIN PRN BG <70, and no IV access Heparin Sodium (Porcine) 5,000 unit 09/21/25 21:00 09/29/25 08:48 Heparin Sod Inj 5000 Unit/Ml Vial SC 10/05/25 20:59 5,000 unit BID SHAWNA Administration Hydromorphone HCl 2 mg 09/26/25 15:25 09/27/25 14:44 Hydromorphone Hcl 2 Mg Tablet PO 10/01/25 15:24 2 mg Q4HR PRN Administration pain 7-10 Hydromorphone HCl 0.5 mg 09/28/25 14:22 Hydromorphone Inj 2 Mg/Ml Vial IVP X1 PRN give 15 min before PICC line insertion for pain Fat Emulsion Intravenous 500 mls @ 32 mls/hr 09/24/25 18:00 09/27/25 17:54 Intralipid 20% Iv IV 10/24/25 17:59 32 mls/hr [id number] SHAWNA Administration Magnesium Sulfate 2 gm/ Sodium 2,026.5 mls @ 85 mls/hr 09/28/25 17:30 09/28/25 17:49 Chloride 70 meq/ Potassium IV 09/29/25 17:20 85 mls/hr Phosphate 15 mmol/ Amino Acids .[id number] SHAWNA Administration Insulin Human Regular 0 unit 09/24/25 18:00 09/29/25 05:16 Insulin Hum Regular 1 Unit/0.01 Ml (Per Unit) SC 10/24/25 17:59 Not Given Q6HR SHAWNA Protocol Melatonin 6 mg 09/25/25 21:00 09/28/25 20:33 Melatonin 3 Mg Tablet PO 10/25/25 20:59 6 mg HS SHAWNA Administration Mirtazapine 15 mg 09/22/25 09:00 09/29/25 08:48 Mirtazapine 15 Mg Tablet PO 10/22/25 08:59 15 mg QDAY SHAWNA Administration Ondansetron HCl 4 mg 09/24/25 11:12 Ondansetron Inj 2 Mg/Ml Inj 2 Ml IVP 10/24/25 11:11 Q6HR PRN NAUSEA OR VOMITING Protocol Oxycodone/Acetaminophen 1 tab 09/26/25 15:24 09/28/25 13:29 Oxycodone/Apap 5/325 Tablet PO 10/01/25 15:23 1 tab Q6HR PRN Administration pain 4-6 Pantoprazole Sodium 40 mg 09/25/25 14:00 09/29/25 08:47 Pantoprazole Inj 40 Mg Vial IVP 10/25/25 13:59 40 mg QDAY SHAWNA Administration Sodium Bicarbonate 325 mg 09/27/25 09:15 09/29/25 08:48 Sodium Bicarbonate 650 Mg Tablet PO 10/27/25 09:14 325 mg BID SHAWNA Administration Sodium Chloride 3 ml 09/21/25 13:58 Sodium Chloride Rt Dania 0.9% 3 Ml Nebu INH 10/21/25 13:57 PRN PRN SOLN Sodium Chloride 1 gm 09/25/25 10:30 09/29/25 08:48 Sodium Chloride 1 Gm Tablet PO 10/25/25 10:29 1 gm DAILY SHAWNA Administration Thiamine HCl 100 mg 09/22/25 09:00 09/29/25 08:48 Thiamine 100 Mg Tablet PO 10/22/25 08:59 100 mg DAILY SHAWNA Administration Plan Mrs. Washington is a Micronesian speaking, 65F with history of invasive adenocarcinoma of the ascending colon s/p right hemicolectomy with ileotransverse colostomy on 07/21/25 presented from SNF for hyperkelemia and hyponatremia. #Short gut syndrome #High ileostomy output #Hx of invasive adenocarcinoma of the ascending colon s/p right hemicolectomy with ileotransverse colostomy (07/21/25) #Calorie protein Malnutrition Per prior note, pt has significant weight loss and not meeting daily nutritional requirement. Plan: - Dietitian consulted, recs 6 small meals, renal, Ensure Plus 8oz, Banatrol Plus - Continue Dronabinol 5mg PO BID - Ileostomy reversal not an option at this time per Dr. Suggs. High risk given her past surgical history. However, may consider referral to a tertiary Medical Center for reanastomosis of the GI tract after improvement of weight and nutritional status. - Start on TPN once PICC line inserted. - Once on TPN, will increase Sodium contents and d/c NaCl 0.9%. #Pre-renal STEPH likely secondary to dehydration from high ileostomy output - resolved Initial BUN to Hook And Eye Sewing Machine Operator ratio > 20. Plan: - nephrology consulted, appreciate recs. --> added Bicitra 30mL PO BID. Recs sodium bicarb tabs for discharge. - Held NaCl 0.9% today as patient will be getting PICC line for TPN. - monitor urine output - daily labs, monitor chemistry - renal dose med, avoid nephrotoxin - avoid contrast or offending mediations #Eletroclyte abnormalities #Hyperkelemia - resolved #Hyponatremia - improving #Hyperphosphatemia - resolved Consistent with short gut syndrome with STEPH from high ileostomy output Plan: - Careful correction of Na to avoid Osmotic Demyelination Syndrome (ODS) - Hyperkalemic cocktail given in ED (1000 mg of calcium gluconate IV, 1 amp of D50 IV, 5 units of regular insulin IV and 10 mg of continuous nebulized albuterol) - Kayexelate 30gm x 1 (09/21/25) - Daily Na check after started on TPN. - Recheck K level in AM, if still elevated, may consider another hyperkelemic cocktail. #Anion gap metabolic acidosis - resolved 09/21/25: Bicarb 18, AG 17. BUN 63 Likely secondary to GI losses vs uremia - Lactate 09/22/25 peaked at 3.5, downtrending - Likely resolve with fluid resuscitation Health maintenance Dispo: pending resolution of STEPH, hyperkelemia, hyponatremia DVT prophylaxis: HEPARIN GI prophylaxis: Protonix Antibiotics: N/A Bowel Regimen: N/A Diet: 6 small meals, high protein ensure, Banatrol Plus QID. On PPN, transition to TPN once PICC line inserted Lines: Peripheral IV Code status: Full code Case discussed with my senior resident Dr. Delong Case discussed with my attending Dr. Simone Persaud, PGY 1 Attending Provider Attestation/Addendum I have seen and examined the patient. I was physically present for the [place] portions of the services provided including history, physical exam, diagnosis, treatment plans and orders. I agree with assessment and plan of care as documented by residents. Patient seen and examined at bedside this morning, no acute overnight events. Appears comfortable and denies any new complaints. Continues to be on PPN, also tolerating oral diet. Despite good oral intake, high-dose loperamide, patient continues to have liquidy output from ileostomy, continues to have issues with absorption. We will change loperamide to Lomotil. Yesterday, patient had drop in sodium despite being on PPN, started on normal saline along with PPN and oral intake, sodium improved to 125 this morning. Creatinine also improved to 1.4 from 2.0 yesterday. Discussed with general surgery regarding possibility of reversal of ileostomy. Stated that with extensive surgery patient had, patient is at high risk if attempt at reanastomosis is made. Recommended to address the nutritional status at this time, if patient is able to regain weight and shows good improvement, reanastomosis may be considered at tertiary care center, appreciate recommendations. We will order PICC line for tomorrow, for continuation of long-term TPN. Plan to discuss with both case management and family regarding placement. Even though this this note was carefully revised there may still be minor errors in instructional resource teacher due to voice recognition software. Logan Mendiola MD
--- NOTE | 2025-09-29 11:15 | PC.SS ---
SS reached out to [place] RN Jennifer in regards to pt DC with . Pt has piccline, per Jennifer no orders have been submitted, they bneed TPN orders as well in order. SS called Dr. Adhikari and informed him of orders being needed for RN to work on establishment
[2025-09-29] MEDS: SODIUM CHLORIDE 0.9% 500 ML 500 ML 999 ML IV (12:41)
[2025-09-29] MEDS: HEPARIN SOD LOCK SYR 100 UNIT/ML 500 UNIT STFIELD (15:15)
[2025-09-29] MEDS: LIDOCAINE INJ PF 1% 30 ML VIAL INFL (15:15)
[2025-09-29] MEDS: fentaNYL CIT INJ 50 mCg/ML AMP 2ML IVP (15:23)
--- NOTE | 2025-09-29 16:13 | PC.DIETICIAN ---
CPN: Clinimix D20% AA5% at 65 ml/hr x 24 hrs with 500 ml 20% lipid 3 times a week (Mon-Wed-Fri). Start at 35 ml/hr for 12 hrs, then advance to goal of 65 ml/hr. 1560 ml volume, 78 g AA, 312 g dextrose, 1802 total calories, NPC 1490. GIR=3.6 / LIR=0.5 MVI w/ minerals QD, folate 1mg if not in MVI, B12 500-1000 mcg QD, D3 0055-9371 IU QD, Zinc sulfate 220mg QD for 14 days. PN order was delivered to Pharmacy.
[2025-09-29] MEDS: FAT EMULSIONS 20% IV 500 ML 32 ML IV (18:00)
[2025-09-29] MEDS: MELATONIN 3 MG TABLET 6 MG PO (20:14)
[2025-09-30] VITALS: BP 93/52; PULSE 69; PULSE 71; RESP 16; TEMP 36.9; O2SAT 98
[2025-09-30 04:00] VITALS: BP 90/56; PULSE 72; PULSE 85; RESP 22; TEMP 36.4; O2SAT 94
[2025-09-30 05:34] LABS: Basophils # (Auto) 0.1 Thou/mm3 (0.0-0.2); Basophils % (Auto) 1 % (0-2.5); Eosinophils # (Auto) 0.4 Thou/mm3 (0.0-0.5); Eosinophils % (Auto) 6 % (0-10); Hematocrit 29.1 % (36.0-46.0); Hemoglobin 9.6 g/dL (12.0-16.0); Immature Granulocytes Auto 0.08 Thou/mm3 (0.00-0.00); Lymphocytes # (Auto) 1.6 Thou/mm3 (1.0-4.8); Lymphocytes % (Auto) 25 % (10-50); Mean Corpuscular HGB Conc 33.0 g/dl (31.0-37.0); Mean Corpuscular Hemoglobin 29.3 pg (25.0-35.0); Mean Corpuscular Volume 89 fL (80-100); Monocytes # (Auto) 0.5 Thou/mm3 (0.0-0.8); Monocytes % (Auto) 8 % (0-12); Neutrophils # (Auto) 3.8 Thou/mm3 (1.8-7.7); Neutrophils % (Auto) 59 % (37-80); Nucleated Red Blood Cell # 0.00 Thou/mm3 (0.00-0.00); Nucleated Red Blood Cell % 0 /100 WBC (0); Platelet Count 243 Thou/mm3 (140-440); RDW Standard Deviation 45.9 fL (36.4-46.3); Red Blood Count 3.28 Miln/mm3 (4.00-5.20); White Blood Count 6.5 Thou/mm3 (3.6-11.0)
[2025-09-30 05:57] VITALS: BMI 19.3
[2025-09-30 06:08] LABS: Anion Gap 10 (7-16); BUN/Creatinine Ratio 32 Ratio (12-20); Blood Urea Nitrogen 16 mg/dL (9-23); Calcium 8.8 mg/dL (8.3-10.6); Carbon Dioxide 21.7 mMol/L (20.0-31.0); Chloride 106 mMol/L (98-107); Creatinine (Component) 0.5 mg/dL (0.6-1.3); Estimated Creatinine Clearance 82.2 mL/min (>60); Glucose 117 mg/dL (74-106); Magnesium 1.5 mg/dL (1.6-2.6); Osmolality,Calculated 277 (275-295); Phosphorous 3.3 mg/dL (2.4-5.1); Potassium 3.7 mMol/L (3.4-5.1); Sodium 138 mMol/L (136-145); eGFR > 60 See Note
[2025-09-30 08:00] VITALS: BP 107/62; PULSE 82; RESP 18; TEMP 36.3; O2SAT 96
--- NOTE | 2025-09-30 08:56 | ESPR_ITS ---
Documentation for date of: 09/30/25 Subjective Subjective Interval history: History of present illness: Patient comes back with the same diagnosis of acute renal failure, electrolyte imbalance with high output ileostomy losses. Seen in the emergency department. Sick looking. Home medications included vitamin D, B12, Pepcid, folic acid, Dilaudid, mirtazapine, multivitamin, thiamine, zinc. Blood pressure 103/75, heart rate 110, afebrile CBC normal except platelets 473.Sodium 117, potassium 5.7, bicarbonate 20.8, BUN 63, creatinine 3.5, GFR 14. Also noted 10 days ago her creatinine was 0.5. Calcium 10.3, magnesium 1.6, AST 103, ALT 100, alk phos 361, albumin 4.8, globulin 4.5, lipase 64. Urinalysis shows significant pyuria, urine sodium less than 10 Patient admitted for hyperkalemia in setting of prerenal STEPH secondary to high ileostomy output. Nephrology consulted for management of hyperkalemia and STEPH. 09/22/25: Patient seen and assessed at bedside. Reports she is feeling better. Overnight, normal saline stopped due to overcorrection of sodium, improved to 123. Dropped back to 119, restart IV NS at 125 mL/h. Goal sodium 125- 127, sodium check q6hr. potassium 4.7, chloride 86, bicarb 18.3, BUN 58, creatinine 2.6, GFR 28. A1c 6.0. Lactic acid 2.3. Calcium 9.5, phosphorus 4.8, magnesium 1.5, repleted. Still has mildly elevated liver enzymes. Started Bicitra due to GI bicarb losses, recommend discharging with sodium bicarb tablets. 09/23/25: Patient seen and assessed at bedside. Doing well. UOP 1.4L. Sodium 126, continue NS with goal 132. Potassium 4.0, chloride 92, bicarb 22.5, BUN 33, creatinine 1.4, GFR 42. Continue NS at 125 cc/hr and Bicitra. Patient is medically stable for discharge from nephrology standpoint if sodium continues to improve. Send with sodium bicarb tablets. 09/24/25: Patient seen and assessed at bedside. Had leakage of ileostomy bag. Sodium 129, started on PPN by primary team. Discontinue Bicitra as bicarb improved. 09/25/25: Patient seen and assessed at bedside. Reporting pain around ileostomy site, erythematous and tender. No leakage noted. Total output 1.5 L (700 cc stool, 800 cc urine). Sodium 121, potassium 4.2, chloride 83, BUN 40, creatinine 2.0 (from 1.1). Start on sodium chloride tablets 1g, encouraged oral hydration. On PPN with sodium 40mEq additive since yesterday. Continue to monitor sodium q6hr, goal 127-129. 09/27/25: Patient seen and assessed at bedside. Worsening irritation around ileostomy site due to persistent leakage. Sodium 133, potassium 4.0, chloride 100, bicarb 24.7, BUN 38, creatinine 0.7. Sodium additives maximized via PPN, continue salt tablets 1 g daily. Start sodium bicarb 325mg BID. Attempt to wean off NS. Plan to dc on TPN per primary team once sodium stabilized. Spoke to surgeon Dr. Suggs, patient may require higher level of care. 09/28/25: Patient seen and assessed at bedside. New ileostomy bag in place, draining well. Continues to have erythema around site. Sodium 132, all other electrolytes stable. Off NS, stable on sodium bicarb and sodium chloride tablets. Patient is medically stable for discharge from nephrology standpoint. Pending placement per primary team. 09/29/25: Patient seen and assessed at bedside. Sodium 135, continue current medical management. Pending PICC line placement today. Plan to discharge to home with home health per primary team. 09/30/25: Sodium 138, continue current management. Bicarb 21.7, slowly dropping over the past 3 days. Increase sodium bicarb tablets to 650 mg BID. PICC line placed yesterday, plan to dc home with home health per primary team. Exam Vital Signs Temp Pulse Resp BP Pulse Ox O2 Del Method O2 Flow Rate 97.6 F 85 22 H 90/56 L 94 L Room Air 2 09/30/25 04:00 09/30/25 04:00 09/30/25 04:00 09/30/25 04:00 09/30/25 04:00 09/30/25 04:00 09/29/25 15:30 Narrative Exam Physical Exam General: Awake and in no acute distress. Conversational. Cachectic. HEENT: Patches of hair loss. Normocephalic, atraumatic, mucous membranes moist. Heart: Regular rate and rhythm, normal S1 and S2, no murmurs. Lungs: Clear to auscultation with no wheezing or crackles. Abdomen: Soft, nondistended, nontender, positive bowel sounds. No guarding or rebound tenderness. Diverticulum ileostomy with redness around the ileostomy site. Bag fluid with liquidy output Neurologic: Alert and oriented x3, no gross neurological deficit, and patient able to move all 4 extremities. Extremities: No edema. Skin: Erythema around ileostomy site. No ecchymoses. Objective Labs 09/30/25 04:40 09/30/25 04:40 Labs: Laboratory Results - last 24 hr 09/30/25 04:40 WBC 6.5 RBC 3.28 L Hgb 9.6 L Hct 29.1 L MCV 89 MCH 29.3 MCHC 33.0 RDW Std Deviation 45.9 Plt Count 243 Neut % (Auto) 59 Lymph % (Auto) 25 [place] % (Auto) 8 Eos % (Auto) 6 Baso % (Auto) 1 Neut # (Auto) 3.8 Lymph # (Auto) 1.6 [place] # (Auto) 0.5 Eos # (Auto) 0.4 Baso # (Auto) 0.1 Immature Gran # (Auto) 0.08 H Absolute Nucleated RBC 0.00 Immature Gran % 1 H Nucleated RBC % 0 Sodium 138 Potassium 3.7 D Chloride 106 Carbon Dioxide 21.7 Anion Gap 10 BUN 16 Creatinine 0.5 L Estim Creat Clear Calc 82.2 eGFR > 60 BUN/Creatinine Ratio 32 H Glucose 117 H Calculated Osmolality 277 Calcium 8.8 Phosphorus 3.3 Magnesium 1.5 L Quality Measures Quality Measures VTE prophylaxis Advance care planning discussed with:: patient Assessment & Plan Assessment Current Active Medications: Generic Name Dose Route Start Last Admin Trade Name Freq PRN Reason Stop Dose Admin Acetaminophen 650 mg 09/21/25 15:15 Acetaminophen 325 Mg Tablet PO 10/21/25 15:14 Q6H PRN PAIN SCALE 1-3 (mild Cyanocobalamin 250 mcg 09/22/25 09:00 09/29/25 08:47 Cyanocobalamin 500 Mcg Tablet PO 10/22/25 08:59 250 mcg DAILY SHAWNA Administration Dextrose 25 ml 09/24/25 11:59 Dextrose 50%-Water Inj 50 Ml Syringe IV 10/24/25 11:58 Q15MIN PRN BG 50-70 responsive npo pt Dextrose 50 ml 09/24/25 11:59 Dextrose 50%-Water Inj 50 Ml Syringe IV 10/24/25 11:58 Q15MIN PRN BG <50 OR BG <70 & pt unresponsive Dronabinol 5 mg 09/22/25 21:00 09/29/25 20:15 Dronabinol 2.5 Mg Capsule PO 10/22/25 20:59 5 mg BID SHAWNA Administration Folic Acid 1 mg 09/22/25 09:00 09/29/25 08:48 Folic Acid 1 Mg Tablet PO 10/22/25 08:59 1 mg DAILY SHAWNA Administration Glucagon 1 mg 09/24/25 11:59 Glucagon Inj 1 Mg Vial IM Q15MIN PRN BG <70, and no IV access Heparin Sodium (Porcine) 5,000 unit 09/21/25 21:00 09/29/25 20:17 Heparin Sod Inj 5000 Unit/Ml Vial SC 10/05/25 20:59 5,000 unit BID SHAWNA Administration Hydromorphone HCl 2 mg 09/26/25 15:25 09/27/25 14:44 Hydromorphone Hcl 2 Mg Tablet PO 10/01/25 15:24 2 mg Q4HR PRN Administration pain 7-10 Hydromorphone HCl 0.5 mg 09/28/25 14:22 Hydromorphone Inj 2 Mg/Ml Vial IVP X1 PRN give 15 min before PICC line insertion for pain Fat Emulsion Intravenous 500 mls @ 32 mls/hr 09/24/25 18:00 09/29/25 18:00 Intralipid 20% Iv IV 10/24/25 17:59 32 mls/hr [id number] SHAWNA Administration Calcium Gluconate 1 gm/ 1,021 mls @ 35 mls/hr 09/29/25 18:00 09/30/25 06:00 Multivitamins/Minerals 10 ml/ IV 09/30/25 23:10 65 mls/hr Thiamine HCl 100 mg/ Amino QDAY@1800 ONE Infusion Acids/Electrolytes Magnesium Sulfate 4 gm in 50 mls @ 12.5 mls/hr 09/30/25 08:20 Magnesium Sulfate Ivpb IV 09/30/25 12:19 X1 ONE Insulin Human Regular 0 unit 09/24/25 18:00 09/30/25 06:01 Insulin Hum Regular 1 Unit/0.01 Ml (Per Unit) SC 10/24/25 17:59 Not Given Q6HR SHAWNA Protocol Melatonin 6 mg 09/25/25 21:00 09/29/25 20:14 Melatonin 3 Mg Tablet PO 10/25/25 20:59 6 mg HS SHAWNA Administration Mirtazapine 15 mg 09/22/25 09:00 09/29/25 08:48 Mirtazapine 15 Mg Tablet PO 10/22/25 08:59 15 mg QDAY SHAWNA Administration Ondansetron HCl 4 mg 09/24/25 11:12 Ondansetron Inj 2 Mg/Ml Inj 2 Ml IVP 10/24/25 11:11 Q6HR PRN NAUSEA OR VOMITING Protocol Oxycodone/Acetaminophen 1 tab 09/26/25 15:24 09/28/25 13:29 Oxycodone/Apap 5/325 Tablet PO 10/01/25 15:23 1 tab Q6HR PRN Administration pain 4-6 Pantoprazole Sodium 40 mg 09/25/25 14:00 09/29/25 08:47 Pantoprazole Inj 40 Mg Vial IVP 10/25/25 13:59 40 mg QDAY SHAWNA Administration Sodium Bicarbonate 650 mg 09/30/25 09:00 Sodium Bicarbonate 650 Mg Tablet PO 10/30/25 08:59 BID SHAWNA Sodium Chloride 3 ml 09/21/25 13:58 Sodium Chloride Rt Dania 0.9% 3 Ml Nebu INH 10/21/25 13:57 PRN PRN SOLN Sodium Chloride 1 gm 09/25/25 10:30 09/29/25 08:48 Sodium Chloride 1 Gm Tablet PO 10/25/25 10:29 1 gm DAILY SHAWNA Administration Thiamine HCl 100 mg 09/22/25 09:00 09/29/25 08:48 Thiamine 100 Mg Tablet PO 10/22/25 08:59 100 mg DAILY SHAWNA Administration Plan Patient is a 65 year old female with past medical history of invasive adenocarcinoma of the ascending colon s/p ex lap right hemicolectomy and ileotransverse anastomosis on 07/21 and an ex lap on 08/11 with resection of small bowel 2/2 multiple lacerations and takedown of anastomosis with diverting ileostomy who was admitted for hyperkalemia and hyponatremia. Nephrology consulted for hyperkalemia and STEPH 2/2 prerenal azotemia from high ileostomy losses. # Acute renal failure 2/2 prerenal azotemia from high output ileostomy losses. #Hypovolemic Hypotonic Hyponatremia (improving) #Hyperphosphatemia (resolved) #Hypercalcemia (resolved) #Hyperkalemia (resolved) #Multiple small bowel lacerations s/p ex lap and resection of small bowl with anastomosis and diverting ileostomy 08/11 #Invasive adenocarcinoma of ascending colon s/p R hemicolectomy with ilio transverse anastomosis 07/21 - Presented from PCP with hyperkalemia and hyponatremia and was sent to the ED for evaluation. Per chart review, patient has had ongoing electrolyte abnormalities likely secondary to short bowel syndrome given her history of extensive abdominal surgeries and ileostomy. - Sodium 117 on admission --> 123 (NS stopped) -> 119 -> 126 -> 129 -> 121 --> 132 - Potassium 5.7, calcium 10.3, phosphorus 5.3 on admission, all now within normal limits. - Creatinine 3.5 -> 2.6 -> 1.4 -> 0.7, back to baseline Plan: - Continue sodium chloride tablet 1g daily to maintain current sodium level - Increase sodium bicarb to 650mg BID - Encouraged oral hydration - Strict INOs - Avoid nephrotoxic agents - Renally dose medications - Follow renal panel closely - Patient is medically stable for discharge from nephrology standpoint at this time. She has had ongoing and will continue to have electrolyte abnormalities secondary to short bowel syndrome given her history of extensive abdominal surgeries and ileostomy. Has overall poor prognosis. PICC line placed yesterday, plan to dc home with HH today. #Anion gap metabolic acidosis (resolved) - Secondary to GI losses and high ileostomy output Plan: - Sodium bicarb tablets as above #Hypotension #Chronic elevated Alk phos #Lactic acidosis (resolved) #Calorie protein Malnutrition #Normocytic anemia - Defer to primary team for management Thank you for your consultation, please do not hesitate to reach out if you have any question or concern Patient plan of care was discussed with the attending physician, Dr. Suarez. Bella Hanks DO, PGY-1 Attending Provider Attestation/Addendum Patient seen and examined with resident physician Dr. Hanks. Note reviewed, agree with findings and recommendations. Patient with short gut syndrome. Significant GI/electrolyte losses. On PPN. s/p PICC line. Continue with salt tablets, sodium bicarbonate tablets, multivitamins. Noted she will be going home with home health care. Prognosis long-term poor
[2025-09-30] MEDS: Magnesium Sulfate 4 GM Ivpb 4 GM/50 ML BAG IV (09:09)
[2025-09-30] MEDS: HEPARIN SOD INJ 5000 UNIT/ML VIAL SC ×2 (09:09→20:27)
[2025-09-30] MEDS: THIAMINE 100 MG TABLET PO (09:10)
[2025-09-30] MEDS: SODIUM BICARBONATE 650 MG TABLET PO ×2 (09:10→20:26)
[2025-09-30] MEDS: SODIUM CHLORIDE 1 GM TABLET PO (09:10)
[2025-09-30] MEDS: MIRTAZAPINE 15 MG TABLET PO (09:10)
[2025-09-30] MEDS: FOLIC ACID 1 MG TABLET PO (09:11)
--- NOTE | 2025-09-30 10:07 | PC.CC ---
Addendum entered by Miguel Fuentes RN 09/30/25 16:51: spoke to dionisio in length with his multiple requests. ostomy supplies - [facility] will supply. [facility] - [facility] to order. delivery of tpn - 09/30/25 @ 1700. Dionisio very upset. he stated he will appeal the discharge and he would like to have a conference meeting the doctor and SW for an alternative dc plan. Informed Dr. Mathew. POC: wean off TPN, dc @12pm, [facility] 1300 Addendum entered by Miguel Fuentes RN 09/30/25 15:50: during IDT rounds, KARLOS Souza asked the group how this patient will dc since she is on the tpn. Pt will have to be weaned off then dc'd and [facility] will have to open within an hour of dc. 1517: Adamaris Mckee called to inform me that he has not been able to get ahold of the pt's son. 1530: i called dionisio stark, he answered. I informed him [facility] has been trying to get ahold of him, he stated they were calling him now. 1539: Adamaris Mckee called back to inform me Dionisio refused soc because no DME has been delivered. per adamaris, dionisio refused to provide the list of dme he is requesting. I called [facility] to inform her of the DME request, she states there are no request and will call Dionisio. Addendum entered by Miguel Fuentes RN 09/30/25 12:38: [facility] accepted and booked. Per [facility], she spoke to the pt's son and CPN will be delivered today. [facility] will open tomorrow. Informed Dr. Mathew and [facility] Coronado. Dr. Mathew will let team know to enter dc order. Original Note: received hh referral order. [facility]h ref sent to [facility] and HH agencies. waiting for response
[2025-09-30 12:00] VITALS: BP 103/60; PULSE 70; RESP 18; TEMP 36.4; O2SAT 94
--- NOTE | 2025-09-30 15:34 | ESPR_ITS ---
<Statement entered by Marian Adhikari MD - 10/01/25 06:27> In summary: admitted for electrolytes emblances 2/2 short-gut syndrome. Started on TPN and tolerating well. Elytes appears stable and WNL. Tolerating TPN well thus far. Pending pump arrival at home for long-term TPN. I?ve reviewed the note and agree with this assessment and plan, with the exceptions outlined above. I personally went over the labs, imaging, home medications, and prior records, and examined the patient. The case was also reviewed with the attending physician. Please note: this document was transcribed using voice recognition technology; minor inaccuracies may be present. Marian Adhikari DO PGY II Documentation for date of: 09/30/25 Subjective Subjective Interval history: Mrs. Washington is a German speaking, 65F with history of prediabetes and invasive adenocarcinoma of the ascending colon s/p right hemicolectomy with ileotransverse colostomy on 07/21/25 presented from SNF for hyperkelemia and hyponatremia, likely secondary to STEPH from short gut syndrome. 09/22/25: Overnight, ~800mL of D5W was given to avoid rapid correction of Na from 117 to 124. Na level this morning 119 with UOP ~1L past 24H. Patient seen and examined at bedside, no acute complaint, resting comfortably in bed. Still not much appetite, increased Marinol from 2.5mg to 5mg PO BID today. Nephrology recommended Bicitra 30mL PO BID, and patient should be discharged with sodium carbonate tablet due to high ileostomy output. Audit Consultant level improved from 3.2 to 2.6 today. Plan of care discussed with patient, will continue NaCl 0.9% @ rate of 80ml/hr with Na check Q4H to avoid rapid correction. 09/23/25: NAOE. Na level 126 this morning and Audit Consultant level improved to 1.4. Ileostomy output 1L. Will continue NaCl 0.9% @ rate of 125ml/hr today with frequent Na level check. Patient is clinically stable for discharge from nephrology standpoint if sodium continues to improve. However, given patient's recent dramatic weight loss, high ileostomy output, and frequent readmission, a discussion was held today at bedside via phone with patient and patient's son regarding the potential need to start patient on terminal block assembler TPN to support patient's nutrition status. At this time, the best option for disposition is home health with TPN. 09/24/25: No acute overnight events. Patient seen and examined at bedside. Appears comfortable and denies any new complaints. Had leakage of ileostomy bag, replaced by wound care nurse. Continues to have liquidy output in the ileostomy bag, we will increase loperamide dosing to 8 mg 4 times daily. Also added Zofran for nausea. Sodium level remained stable at 129. Discussed with dietitian, patient continues to have oral intake but unable to meet her goal. We will start her on PPN and monitor closely for stool output with loperamide. If patient does not respond to increasing dose of loperamide, we will plan for PICC line on Saturday for TPN. Vital signs are stable, kidney function is improving. 09/25/25: NAOE. Na decreased back to 121. Creatinine increased to 2. Salt tablet added. On exam, patient continues to be asymtomatic, on PPN. Loperamide increased to 16mg Q6H and Banatrol Plus to QID now. If patient continues to have high output from ileostomy bag, a PICC line may be needed on Saturday to start her on TPN. 09/26/25: Hypotensive overnight, 500mL LR bolus given with 10mg midodrine x1. BP this morning 92/58. Na improved to 125. Cr decrease to 1.4 from 2.0. Spoke with Dr. Suggs at bedside, suggested given patient's complicated surgical history, it is not advisable to pursue with ileostomy reversal due to significant morbidity and mortality. The best option at this point would be PICC line with TPN and home with home health. Patient may require TPN indefinitely to prevent future admissions to the hospital for electrolyte imbalance. 09/27/25: NAOE. Plan for PICC line today and start TPN. Audit Consultant 0.7. Na 133. Spoke with family at bedside, stated they would not be able to take care of the patient at home even with the help of home amanda nurse. ammonia worker had already spoke with patient and family regarding their limited options, but will speak with them today. Patient was advised to obtain referral from her PCP to a tertiary Medical Center for reanastomosis of the GI tract after her nutritional status improve, but at this time, she will require TPN to prevent electrolyte imbalance. 09/28/25: NAOE. Na level stable at 132. Failed attempt for PICC line insertion yesterday despite multiple attempts, will try again today, if unsucessful, patient will likely require transfer to a different facility for PICC line placement. Patient complained of arm pains from PICC line attempt yesterday, will give patient 0.5mg of IV dilaudid prior to procedure. Plan to start TPN after PICC line insertion. 09/29/25: NAOE. Na level 135. Patient did not get her PICC line yesterday due to schedule availbility. Plan to get PICC line placed today with IR pending availbility. Patient will need PICC line and TPN prior to discharge. 09/30/25: NAOE. Na Level 138. Mag 1.5, repleted. PICC line inserted yesterday, currently on TPN. Referal to home health agency sent, pending response and TPN pump delivery. Exam Vital Signs Temp Pulse Resp BP Pulse Ox O2 Del Method O2 Flow Rate 97.6 F 70 18 103/60 94 L Room Air 2 09/30/25 12:00 09/30/25 12:00 09/30/25 12:00 09/30/25 12:00 09/30/25 12:00 09/30/25 08:00 09/29/25 15:30 Narrative Exam General: Awake and in no acute distress. A/O x 3. Conversational. HEENT: Normocephalic, atraumatic Heart: Regular rate and rhythm. Lungs: Clear to auscultation with no wheezing or crackles. Abdomen: Soft, nondistended, nontender. Transverse surgical scar. Ileostomy bag draining liquid contents. Neurologic: Alert and oriented x3, no gross neurological deficit. Extremities: Moving all extremities. No edema to LE. Skin: Dry, clean, intact. No ecchymosis. Ileostomy site appears erythematous, but without signs of infection. Objective Labs 10/01/25 04:55 10/01/25 04:55 Labs: Laboratory Results - last 24 hr 09/30/25 04:40 WBC 6.5 RBC 3.28 L Hgb 9.6 L Hct 29.1 L MCV 89 MCH 29.3 MCHC 33.0 RDW Std Deviation 45.9 Plt Count 243 Neut % (Auto) 59 Lymph % (Auto) 25 [place] % (Auto) 8 Eos % (Auto) 6 Baso % (Auto) 1 Neut # (Auto) 3.8 Lymph # (Auto) 1.6 [place] # (Auto) 0.5 Eos # (Auto) 0.4 Baso # (Auto) 0.1 Immature Gran # (Auto) 0.08 H Absolute Nucleated RBC 0.00 Immature Gran % 1 H Nucleated RBC % 0 Sodium 138 Potassium 3.7 D Chloride 106 Carbon Dioxide 21.7 Anion Gap 10 BUN 16 Creatinine 0.5 L Estim Creat Clear Calc 82.2 eGFR > 60 BUN/Creatinine Ratio 32 H Glucose 117 H Calculated Osmolality 277 Calcium 8.8 Phosphorus 3.3 Magnesium 1.5 L Quality Measures Quality Measures VTE prophylaxis Advance care planning discussed with:: patient Assessment & Plan Assessment Current Active Medications: Generic Name Dose Route Start Last Admin Trade Name Freq PRN Reason Stop Dose Admin Acetaminophen 650 mg 09/21/25 15:15 Acetaminophen 325 Mg Tablet PO 10/21/25 15:14 Q6H PRN PAIN SCALE 1-3 (mild Cyanocobalamin 250 mcg 09/22/25 09:00 09/30/25 09:11 Cyanocobalamin 500 Mcg Tablet PO 10/22/25 08:59 250 mcg DAILY SHAWNA Administration Dextrose 25 ml 09/24/25 11:59 Dextrose 50%-Water Inj 50 Ml Syringe IV 10/24/25 11:58 Q15MIN PRN BG 50-70 responsive npo pt Dextrose 50 ml 09/24/25 11:59 Dextrose 50%-Water Inj 50 Ml Syringe IV 10/24/25 11:58 Q15MIN PRN BG <50 OR BG <70 & pt unresponsive Dronabinol 5 mg 09/22/25 21:00 09/30/25 09:12 Dronabinol 2.5 Mg Capsule PO 10/22/25 20:59 5 mg BID SHAWNA Administration Folic Acid 1 mg 09/22/25 09:00 09/30/25 09:11 Folic Acid 1 Mg Tablet PO 10/22/25 08:59 1 mg DAILY SHAWNA Administration Glucagon 1 mg 09/24/25 11:59 Glucagon Inj 1 Mg Vial IM Q15MIN PRN BG <70, and no IV access Heparin Sodium (Porcine) 5,000 unit 09/21/25 21:00 09/30/25 09:09 Heparin Sod Inj 5000 Unit/Ml Vial SC 10/05/25 20:59 5,000 unit BID SHAWNA Administration Hydromorphone HCl 2 mg 09/26/25 15:25 09/27/25 14:44 Hydromorphone Hcl 2 Mg Tablet PO 10/01/25 15:24 2 mg Q4HR PRN Administration pain 7-10 Hydromorphone HCl 0.5 mg 09/28/25 14:22 Hydromorphone Inj 2 Mg/Ml Vial IVP X1 PRN give 15 min before PICC line insertion for pain Fat Emulsion Intravenous 500 mls @ 32 mls/hr 09/24/25 18:00 09/29/25 18:00 Intralipid 20% Iv IV 10/24/25 17:59 32 mls/hr MoWeFr@1800 SHAWNA Administration Calcium Gluconate 1 gm/ 1,021 mls @ 35 mls/hr 09/29/25 18:00 09/30/25 06:00 Multivitamins/Minerals 10 ml/ IV 09/30/25 18:00 65 mls/hr Thiamine HCl 100 mg/ Amino QDAY@1800 ONE Infusion Acids/Electrolytes Insulin Human Regular 0 unit 09/24/25 18:00 09/30/25 11:45 Insulin Hum Regular 1 Unit/0.01 Ml (Per Unit) SC 10/24/25 17:59 Not Given Q6HR SHAWNA Protocol Melatonin 6 mg 09/25/25 21:00 09/29/25 20:14 Melatonin 3 Mg Tablet PO 10/25/25 20:59 6 mg HS SHAWNA Administration Mirtazapine 15 mg 09/22/25 09:00 09/30/25 09:10 Mirtazapine 15 Mg Tablet PO 10/22/25 08:59 15 mg QDAY SHAWNA Administration Ondansetron HCl 4 mg 09/24/25 11:12 Ondansetron Inj 2 Mg/Ml Inj 2 Ml IVP 10/24/25 11:11 Q6HR PRN NAUSEA OR VOMITING Protocol Oxycodone/Acetaminophen 1 tab 09/26/25 15:24 09/28/25 13:29 Oxycodone/Apap 5/325 Tablet PO 10/01/25 15:23 1 tab Q6HR PRN Administration pain 4-6 Pantoprazole Sodium 40 mg 09/25/25 14:00 09/30/25 09:09 Pantoprazole Inj 40 Mg Vial IVP 10/25/25 13:59 40 mg QDAY SHAWNA Administration Sodium Bicarbonate 650 mg 09/30/25 09:00 09/30/25 09:10 Sodium Bicarbonate 650 Mg Tablet PO 10/30/25 08:59 650 mg BID SHAWNA Administration Sodium Chloride 3 ml 09/21/25 13:58 Sodium Chloride Rt Dania 0.9% 3 Ml Nebu INH 10/21/25 13:57 PRN PRN SOLN Sodium Chloride 1 gm 09/25/25 10:30 09/30/25 09:10 Sodium Chloride 1 Gm Tablet PO 10/25/25 10:29 1 gm DAILY SHAWNA Administration Thiamine HCl 100 mg 09/22/25 09:00 09/30/25 09:10 Thiamine 100 Mg Tablet PO 10/22/25 08:59 100 mg DAILY SHAWNA Administration Plan Mrs. Washington is a German speaking, 65F with history of invasive adenocarcinoma of the ascending colon s/p right hemicolectomy with ileotransverse colostomy on 07/21/25 presented from SNF for hyperkelemia and hyponatremia. #Short gut syndrome #High ileostomy output #Hx of invasive adenocarcinoma of the ascending colon s/p right hemicolectomy with ileotransverse colostomy (07/21/25) #Calorie protein Malnutrition Per prior note, pt has significant weight loss and not meeting daily nutritional requirement. Plan: - Dietitian consulted, recs 6 small meals, renal, Ensure Plus 8oz, Banatrol Plus - Continue Dronabinol 5mg PO BID - Ileostomy reversal not an option at this time per Dr. Suggs. High risk given her past surgical history. However, may consider referral to a tertiary Medical Center for reanastomosis of the GI tract after improvement of weight and nutritional status. - PICC line inserted (09/29/25), on TPN #Pre-renal STEPH likely secondary to dehydration from high ileostomy output - resolved Initial BUN to Audit Consultant ratio > 20. Plan: - nephrology consulted, appreciate recs. --> added Bicitra 30mL PO BID. Recs sodium bicarb tabs for discharge. - monitor urine output - daily labs, monitor chemistry - renal dose med, avoid nephrotoxin - avoid contrast or offending mediations #Eletroclyte abnormalities #Hyperkelemia - resolved #Hyponatremia - improving #Hyperphosphatemia - resolved Consistent with short gut syndrome with STEPH from high ileostomy output Plan: - Careful correction of Na to avoid Osmotic Demyelination Syndrome (ODS) - Hyperkalemic cocktail given in ED (1000 mg of calcium gluconate IV, 1 amp of D50 IV, 5 units of regular insulin IV and 10 mg of continuous nebulized albuterol) - Kayexelate 30gm x 1 (09/21/25) - Daily Na check after started on TPN. - Recheck K level in AM, if still elevated, may consider another hyperkelemic cocktail. #Anion gap metabolic acidosis - resolved 09/21/25: Bicarb 18, AG 17. BUN 63 Likely secondary to GI losses vs uremia - Lactate 09/22/25 peaked at 3.5, downtrending - Likely resolve with fluid resuscitation Health maintenance Dispo: pending HH and TPN pump delivery DVT prophylaxis: HEPARIN GI prophylaxis: Protonix Antibiotics: N/A Bowel Regimen: N/A Diet: 6 small meals, high protein ensure, Banatrol Plus QID. On TPN. Lines: Peripheral IV Code status: Full code Case discussed with my senior resident Dr. Adhikari Case discussed with my attending Dr. Quincy Persaud, DO PGY 1 Attending Provider Attestation/Addendum I have seen and examined the patient. I was physically present for the [place] portions of the services provided including history, physical exam, diagnosis, treatment plans and orders. I agree with assessment and plan of care as documented by residents. Patient seen and examined at bedside this morning, no acute overnight events. Appears comfortable and denies any new complaints. Continues to be on PPN, also tolerating oral diet. Despite good oral intake, high-dose loperamide, patient continues to have liquidy output from ileostomy, continues to have issues with absorption. We will change loperamide to Lomotil. Yesterday, patient had drop in sodium despite being on PPN, started on normal saline along with PPN and oral intake, sodium improved to 125 this morning. Creatinine also improved to 1.4 from 2.0 yesterday. Discussed with general surgery regarding possibility of reversal of ileostomy. Stated that with extensive surgery patient had, patient is at high risk if attempt at reanastomosis is made. Recommended to address the nutritional status at this time, if patient is able to regain weight and shows good improvement, reanastomosis may be considered at tertiary care center, appreciate recommendations. We will order PICC line for tomorrow, for continuation of long-term TPN. Plan to discuss with both case management and family regarding placement. Even though this this note was carefully revised there may still be minor errors in cotton program technician due to voice recognition software. Logan Mendiola MD
[2025-09-30 16:00] VITALS: BP 103/54; PULSE 78; RESP 18; TEMP 36.3; O2SAT 94
--- NOTE | 2025-09-30 16:00 | PC.WOUND ---
Voicemail message left for ying Nichole [phone] to return call. Plan to discharge home with home health and family to care for ileostomy
--- NOTE | 2025-09-30 16:02 | PC.SS ---
Follow up note: SS received call from transfer nurse that patient's son is refusing supplies to be delivered until he gets all other DME requested. SS contacted Dionisio to clarify what DME he is discussing. Son states at least a FWW. SS will ask physician team for a FWW. Son states they delivered nutrition supplies but no ostomy supplies. He's getting upset with lack of communication. He wants to know details of home health such as when their nursing is coming out and how many days a week. SS updated transfer nurse. Tentative d/c is for tomorrow.
[2025-09-30] MEDS: MULTIVITAMIN INJ 10 ML in AMINO ACID 5%/D20W E 2,000 ML 65 ML IV (16:23)
[2025-09-30 20:00] VITALS: BP 97/58; PULSE 90; PULSE 93; RESP 16; TEMP 36.2; O2SAT 100
[2025-09-30] MEDS: MELATONIN 3 MG TABLET 6 MG PO (20:26)
[2025-10-01] VITALS: BP 103/67; PULSE 86; PULSE 91; RESP 16; TEMP 36.4; O2SAT 99
[2025-10-01 03:46] VITALS: PULSE 76
[2025-10-01 04:00] VITALS: BP 97/63; PULSE 81; RESP 19; TEMP 36.4; O2SAT 97
[2025-10-01 06:00] VITALS: BMI 19.5
[2025-10-01 06:11] LABS: Basophils # (Auto) 0.1 Thou/mm3 (0.0-0.2); Basophils % (Auto) 1 % (0-2.5); Eosinophils # (Auto) 0.4 Thou/mm3 (0.0-0.5); Eosinophils % (Auto) 6 % (0-10); Hematocrit 26.5 % (36.0-46.0); Immature Granulocytes Auto 0.13 Thou/mm3 (0.00-0.00); Lymphocytes # (Auto) 2.0 Thou/mm3 (1.0-4.8); Lymphocytes % (Auto) 32 % (10-50); Mean Corpuscular HGB Conc 32.5 g/dl (31.0-37.0); Mean Corpuscular Hemoglobin 29.3 pg (25.0-35.0); Mean Corpuscular Volume 90 fL (80-100); Monocytes # (Auto) 0.6 Thou/mm3 (0.0-0.8); Monocytes % (Auto) 9 % (0-12); Neutrophils # (Auto) 3.2 Thou/mm3 (1.8-7.7); Neutrophils % (Auto) 51 % (37-80); Nucleated Red Blood Cell # 0.00 Thou/mm3 (0.00-0.00); Nucleated Red Blood Cell % 0 /100 WBC (0); Platelet Count 236 Thou/mm3 (140-440); RDW Standard Deviation 46.9 fL (36.4-46.3); Red Blood Count 2.94 Miln/mm3 (4.00-5.20); White Blood Count 6.3 Thou/mm3 (3.6-11.0)
[2025-10-01 06:13] LABS: Hemoglobin 8.6 g/dL (12.0-16.0)
[2025-10-01 06:29] LABS: Anion Gap 8 (7-16); BUN/Creatinine Ratio 28 Ratio (12-20); Blood Urea Nitrogen 14 mg/dL (9-23); Calcium 8.8 mg/dL (8.3-10.6); Carbon Dioxide 22.8 mMol/L (20.0-31.0); Chloride 107 mMol/L (98-107); Creatinine (Component) 0.5 mg/dL (0.6-1.3); Estimated Creatinine Clearance 82.9 mL/min (>60); Glucose 110 mg/dL (74-106); Magnesium 2.1 mg/dL (1.6-2.6); Osmolality,Calculated 277 (275-295); Phosphorous 3.1 mg/dL (2.4-5.1); Potassium 4.2 mMol/L (3.4-5.1); Sodium 138 mMol/L (136-145); eGFR > 60 See Note
[2025-10-01 08:00] VITALS: BP 107/64; PULSE 75; RESP 18; TEMP 36.6; O2SAT 98
[2025-10-01] MEDS: HEPARIN SOD INJ 5000 UNIT/ML VIAL SC (08:03)
[2025-10-01] MEDS: SODIUM CHLORIDE 1 GM TABLET PO (08:05)
[2025-10-01] MEDS: FOLIC ACID 1 MG TABLET PO (08:05)
[2025-10-01] MEDS: MIRTAZAPINE 15 MG TABLET PO (08:05)
[2025-10-01] MEDS: SODIUM BICARBONATE 650 MG TABLET PO (08:05)
[2025-10-01] MEDS: THIAMINE 100 MG TABLET PO (08:06)
--- NOTE | 2025-10-01 08:45 | PD.RESPRO ---
Documentation for date of: 10/01/25 Subjective Subjective Interval history: History of present illness: Patient comes back with the same diagnosis of acute renal failure, electrolyte imbalance with high output ileostomy losses. Seen in the emergency department. Sick looking. Home medications included vitamin D, B12, Pepcid, folic acid, Dilaudid, mirtazapine, multivitamin, thiamine, zinc. Blood pressure 103/75, heart rate 110, afebrile CBC normal except platelets 473.Sodium 117, potassium 5.7, bicarbonate 20.8, BUN 63, creatinine 3.5, GFR 14. Also noted 10 days ago her creatinine was 0.5. Calcium 10.3, magnesium 1.6, AST 103, ALT 100, alk phos 361, albumin 4.8, globulin 4.5, lipase 64. Urinalysis shows significant pyuria, urine sodium less than 10 Patient admitted for hyperkalemia in setting of prerenal STEPH secondary to high ileostomy output. Nephrology consulted for management of hyperkalemia and STEPH. 09/22/25: Patient seen and assessed at bedside. Reports she is feeling better. Overnight, normal saline stopped due to overcorrection of sodium, improved to 123. Dropped back to 119, restart IV NS at 125 mL/h. Goal sodium 125- 127, sodium check q6hr. potassium 4.7, chloride 86, bicarb 18.3, BUN 58, creatinine 2.6, GFR 28. A1c 6.0. Lactic acid 2.3. Calcium 9.5, phosphorus 4.8, magnesium 1.5, repleted. Still has mildly elevated liver enzymes. Started Bicitra due to GI bicarb losses, recommend discharging with sodium bicarb tablets. 09/23/25: Patient seen and assessed at bedside. Doing well. UOP 1.4L. Sodium 126, continue NS with goal 132. Potassium 4.0, chloride 92, bicarb 22.5, BUN 33, creatinine 1.4, GFR 42. Continue NS at 125 cc/hr and Bicitra. Patient is medically stable for discharge from nephrology standpoint if sodium continues to improve. Send with sodium bicarb tablets. 09/24/25: Patient seen and assessed at bedside. Had leakage of ileostomy bag. Sodium 129, started on PPN by primary team. Discontinue Bicitra as bicarb improved. 09/25/25: Patient seen and assessed at bedside. Reporting pain around ileostomy site, erythematous and tender. No leakage noted. Total output 1.5 L (700 cc stool, 800 cc urine). Sodium 121, potassium 4.2, chloride 83, BUN 40, creatinine 2.0 (from 1.1). Start on sodium chloride tablets 1g, encouraged oral hydration. On PPN with sodium 40mEq additive since yesterday. Continue to monitor sodium q6hr, goal 127-129. 09/27/25: Patient seen and assessed at bedside. Worsening irritation around ileostomy site due to persistent leakage. Sodium 133, potassium 4.0, chloride 100, bicarb 24.7, BUN 38, creatinine 0.7. Sodium additives maximized via PPN, continue salt tablets 1 g daily. Start sodium bicarb 325mg BID. Attempt to wean off NS. Plan to dc on TPN per primary team once sodium stabilized. Spoke to surgeon Dr. Suggs, patient may require higher level of care. 09/28/25: Patient seen and assessed at bedside. New ileostomy bag in place, draining well. Continues to have erythema around site. Sodium 132, all other electrolytes stable. Off NS, stable on sodium bicarb and sodium chloride tablets. Patient is medically stable for discharge from nephrology standpoint. Pending placement per primary team. 09/29/25: Patient seen and assessed at bedside. Sodium 135, continue current medical management. Pending PICC line placement today. Plan to discharge to home with home health per primary team. 09/30/25: Sodium 138, continue current management. Bicarb 21.7, slowly dropping over the past 3 days. Increase sodium bicarb tablets to 650 mg BID. PICC line placed yesterday, plan to dc home with home health per primary team. 10/01/25: Sodium stable, continue current management. Discharge with sodium chloride tablets 1g daily and sodium bicarb 650 BID. Nephrology will be signing off as patient is renally stable. Exam Vital Signs Temp Pulse Resp BP Pulse Ox O2 Del Method O2 Flow Rate 97.5 F 81 19 97/63 97 Room Air 2 10/01/25 04:00 10/01/25 04:00 10/01/25 04:00 10/01/25 04:00 10/01/25 04:00 10/01/25 04:00 09/29/25 15:30 Narrative Exam Physical Exam General: Awake and in no acute distress. Conversational. Cachectic. HEENT: Patches of hair loss. Normocephalic, atraumatic, mucous membranes moist. Heart: Regular rate and rhythm, normal S1 and S2, no murmurs. Lungs: Clear to auscultation with no wheezing or crackles. Abdomen: Soft, nondistended, nontender, positive bowel sounds. No guarding or rebound tenderness. Diverticulum ileostomy with redness around the ileostomy site. Bag fluid with liquidy output Neurologic: Alert and oriented x3, no gross neurological deficit, and patient able to move all 4 extremities. Extremities: No edema. Skin: Erythema around ileostomy site. No ecchymoses. Objective Labs 10/01/25 04:55 10/01/25 04:55 Labs: Laboratory Results - last 24 hr 10/01/25 04:55 WBC 6.3 RBC 2.94 L Hgb 8.6 L Hct 26.5 L MCV 90 MCH 29.3 MCHC 32.5 RDW Std Deviation 46.9 H Plt Count 236 Neut % (Auto) 51 Lymph % (Auto) 32 Woodson % (Auto) 9 Eos % (Auto) 6 Baso % (Auto) 1 Neut # (Auto) 3.2 Lymph # (Auto) 2.0 Woodson # (Auto) 0.6 Eos # (Auto) 0.4 Baso # (Auto) 0.1 Immature Gran # (Auto) 0.13 H Absolute Nucleated RBC 0.00 Immature Gran % 2 H Nucleated RBC % 0 Sodium 138 Potassium 4.2 D Chloride 107 Carbon Dioxide 22.8 Anion Gap 8 BUN 14 Creatinine 0.5 L Estim Creat Clear Calc 82.9 eGFR > 60 BUN/Creatinine Ratio 28 H Glucose 110 H Calculated Osmolality 277 Calcium 8.8 Phosphorus 3.1 Magnesium 2.1 Quality Measures Quality Measures VTE prophylaxis Advance care planning discussed with:: patient Assessment & Plan Assessment Current Active Medications: Generic Name Dose Route Start Last Admin Trade Name Freq PRN Reason Stop Dose Admin Acetaminophen 650 mg 09/21/25 15:15 Acetaminophen 325 Mg Tablet PO 10/21/25 15:14 Q6H PRN PAIN SCALE 1-3 (mild Cyanocobalamin 250 mcg 09/22/25 09:00 10/01/25 08:04 Cyanocobalamin 500 Mcg Tablet PO 10/22/25 08:59 250 mcg DAILY SHAWNA Administration Dextrose 25 ml 09/24/25 11:59 Dextrose 50%-Water Inj 50 Ml Syringe IV 10/24/25 11:58 Q15MIN PRN BG 50-70 responsive npo pt Dextrose 50 ml 09/24/25 11:59 Dextrose 50%-Water Inj 50 Ml Syringe IV 10/24/25 11:58 Q15MIN PRN BG <50 OR BG <70 & pt unresponsive Dronabinol 5 mg 09/22/25 21:00 10/01/25 08:04 Dronabinol 2.5 Mg Capsule PO 10/22/25 20:59 5 mg BID SHAWNA Administration Folic Acid 1 mg 09/22/25 09:00 10/01/25 08:05 Folic Acid 1 Mg Tablet PO 10/22/25 08:59 1 mg DAILY SHAWNA Administration Glucagon 1 mg 09/24/25 11:59 Glucagon Inj 1 Mg Vial IM Q15MIN PRN BG <70, and no IV access Heparin Sodium (Porcine) 5,000 unit 09/21/25 21:00 10/01/25 08:03 Heparin Sod Inj 5000 Unit/Ml Vial SC 10/05/25 20:59 5,000 unit BID SHAWNA Administration Hydromorphone HCl 2 mg 09/26/25 15:25 09/27/25 14:44 Hydromorphone Hcl 2 Mg Tablet PO 10/01/25 15:24 2 mg Q4HR PRN Administration pain 7-10 Hydromorphone HCl 0.5 mg 09/28/25 14:22 Hydromorphone Inj 2 Mg/Ml Vial IVP X1 PRN give 15 min before PICC line insertion for pain Fat Emulsion Intravenous 500 mls @ 32 mls/hr 09/24/25 18:00 09/29/25 18:00 Intralipid 20% Iv IV 10/24/25 17:59 32 mls/hr [id number] SHAWNA Administration Multivitamins/Minerals 10 ml/ 2,010 mls @ 65 mls/hr 09/30/25 16:30 09/30/25 16:23 Amino Acids/Electrolytes IV 10/01/25 16:29 65 mls/hr Q24H SHAWNA Administration Insulin Human Regular 0 unit 09/24/25 18:00 10/01/25 05:04 Insulin Hum Regular 1 Unit/0.01 Ml (Per Unit) SC 10/24/25 17:59 Not Given Q6HR SHAWNA Protocol Melatonin 6 mg 09/25/25 21:00 09/30/25 20:26 Melatonin 3 Mg Tablet PO 10/25/25 20:59 6 mg HS SHAWNA Administration Mirtazapine 15 mg 09/22/25 09:00 10/01/25 08:05 Mirtazapine 15 Mg Tablet PO 10/22/25 08:59 15 mg QDAY SHAWNA Administration Ondansetron HCl 4 mg 09/24/25 11:12 Ondansetron Inj 2 Mg/Ml Inj 2 Ml IVP 10/24/25 11:11 Q6HR PRN NAUSEA OR VOMITING Protocol Oxycodone/Acetaminophen 1 tab 09/26/25 15:24 09/28/25 13:29 Oxycodone/Apap 5/325 Tablet PO 10/01/25 15:23 1 tab Q6HR PRN Administration pain 4-6 Pantoprazole Sodium 40 mg 09/25/25 14:00 10/01/25 08:04 Pantoprazole Inj 40 Mg Vial IVP 10/25/25 13:59 40 mg QDAY SHAWNA Administration Sodium Bicarbonate 650 mg 09/30/25 09:00 10/01/25 08:05 Sodium Bicarbonate 650 Mg Tablet PO 10/30/25 08:59 650 mg BID SHAWNA Administration Sodium Chloride 3 ml 09/21/25 13:58 Sodium Chloride Rt Dania 0.9% 3 Ml Nebu INH 10/21/25 13:57 PRN PRN SOLN Sodium Chloride 1 gm 09/25/25 10:30 10/01/25 08:05 Sodium Chloride 1 Gm Tablet PO 10/25/25 10:29 1 gm DAILY SHAWNA Administration Thiamine HCl 100 mg 09/22/25 09:00 10/01/25 08:06 Thiamine 100 Mg Tablet PO 10/22/25 08:59 100 mg DAILY SHAWNA Administration Plan Patient is a 65 year old female with past medical history of invasive adenocarcinoma of the ascending colon s/p ex lap right hemicolectomy and ileotransverse anastomosis on 07/21 and an ex lap on 08/11 with resection of small bowel 2/2 multiple lacerations and takedown of anastomosis with diverting ileostomy who was admitted for hyperkalemia and hyponatremia. Nephrology consulted for hyperkalemia and STEPH 2/2 prerenal azotemia from high ileostomy losses. # Acute renal failure 2/2 prerenal azotemia from high output ileostomy losses. #Hypovolemic Hypotonic Hyponatremia (improving) #Hyperphosphatemia (resolved) #Hypercalcemia (resolved) #Hyperkalemia (resolved) #Multiple small bowel lacerations s/p ex lap and resection of small bowl with anastomosis and diverting ileostomy 08/11 #Invasive adenocarcinoma of ascending colon s/p R hemicolectomy with ilio transverse anastomosis 07/21 - Presented from PCP with hyperkalemia and hyponatremia and was sent to the ED for evaluation. Per chart review, patient has had ongoing electrolyte abnormalities likely secondary to short bowel syndrome given her history of extensive abdominal surgeries and ileostomy. - Sodium 117 on admission --> 123 (NS stopped) -> 119 -> 126 -> 129 -> 121 --> 132 - Potassium 5.7, calcium 10.3, phosphorus 5.3 on admission, all now within normal limits. - Creatinine 3.5 -> 2.6 -> 1.4 -> 0.7, back to baseline Plan: - Continue sodium chloride tablet 1g daily to maintain current sodium level - Continue sodium bicarb 650mg BID - Encouraged oral hydration - Strict INOs - Avoid nephrotoxic agents - Renally dose medications - Follow renal panel closely - Patient is medically stable for discharge from nephrology standpoint at this time. She has had ongoing and will continue to have electrolyte abnormalities secondary to short bowel syndrome given her history of extensive abdominal surgeries and ileostomy. Has overall poor prognosis. PICC line placed yesterday, plan to dc home with HH today. #Anion gap metabolic acidosis (resolved) - Secondary to GI losses and high ileostomy output Plan: - Sodium bicarb tablets as above #Hypotension #Chronic elevated Alk phos #Lactic acidosis (resolved) #Calorie protein Malnutrition #Normocytic anemia - Defer to primary team for management Thank you for your consultation, please do not hesitate to reach out if you have any question or concern. Nephrology will be signing off. Patient plan of care was discussed with the attending physician, Dr. Suarez. Bella Hanks DO, PGY-1 Attending Provider Attestation/Addendum Patient seen and examined with resident physician Dr. Hanks. Note reviewed, agree with findings and recommendations. Patient with short gut syndrome. Significant GI/electrolyte losses. On PPN. s/p PICC line. Continue with salt tablets, sodium bicarbonate tablets, multivitamins. Noted she will be going home with home health care. Prognosis long-term poor
--- NOTE | 2025-10-01 09:40 | PC.SS ---
Addendum entered by Venecia Richards 10/01/25 11:57: SS received a call from Tierra at [facility] who stated they need a 13oo extension for pt. SS explained she needs to be home by 1300. Per Tierra that is all they have at this moment due to emergency calls. SS contacted pt son Dionisio to update him, SS informed him of possibly using [employer] for pt. Pt is ambulatory and able to transfer to a car. Per Dionisio that was his last option but whatever we have to do to ensure pt is home on time we have to do. SS attempted to contact Kathleen KNIGHT to ensure pt is ready to go as [employer] can be fast, no answer. Addendum entered by Venecia Richards 10/01/25 11:06: SS set up transport for pt with [facility] for 1200. EUGENE wang and Pt son Dionisio made aware. DONALDO also updated pt will be DC today at 12 for them to see her at 1300. Original Note: SS spoke to Isabel SUAREZ RN, in regards to pt DC today. Per Isabel pt has to be DC by 12pm as [facility] will see pt at 1300 as pt can only be off TPN for 1hr. EFE called Dionisio [phone] pt son to verify DC plan for today 12pm. Per Dionisio he will try, SS explained importance of being on time due to pt being off TPN. Per Dionisio he is struggling with transport for the pt as he has a lifted truck. SS gave Dionisio the option for [facility]. Dionisio expressed that would be a great help. That if we can transport her to his house at [address], [place]. EFE called Isabel SUAREZ RN and updated her on changeof address. Per Isabel that messes with DONALDO as they have different offices in [place]. Due to Isabel being busy with transfers SS contacted DONALDO, SS spoke to Ray [phone]. Per Ray this can still be accommodated. While on phone SS had EFE Coronado call EUGENE Wang to get update on pt being weaned off TPN. Per Kathleen KNIGHT pt has not been weaned off. SS told Ray SS will go speak to zinc furnace charger to get everyone on same page and call him back. Per Ray he needs to know jhonatan as he needs to keep the Nurses in the loop as well. SS went and spoke to curator [employer] history [employer] Jade, who stated pt can still be weaned off by 12 oclock. Per RNJade she will go help RNKathleen to ensure this is completed. SS called Sarabjit back from [facility] and updated him on plan to still DC by 12 o'clock to have pt home in [place] by 1pm. SS called [facility] to set up transport to [place], per Kartik the only time they have available to [facility]. This does not work therefore SAVANNA with [facility] will be utilized to ensure pt gets home at the time needed for [facility]. SS called Dionisio to update him on plan who is in agreement and now requested a suction machine for pt. SS to reach out to [facility] if this is something that can be ordered for pt.
--- NOTE | 2025-10-01 09:44 | ESDS_ITS ---
<Statement entered by Melody Maier DO - 10/01/25 14:19> I, Melody Maier DO, attest that I was physically present for the [place] portions of the service and evaluated the patient with the resident and I reviewed and discussed the case with the resident and agree with the resident's findings and plans of care as documented above <Statement entered by Jonathan Purvis MD - 10/01/25 14:10> Patient was examined and case was reviewed with team including attending physician. Note reviewed, I agree with most of its contents and agree with the patient's care as documented by Dr. Cori Purvis MD PGY-2 Planned Discharge Date 10/01/25 DS: Providers Provider Date of admission: 09/21/25 15:10 Primary care physician: ERIBERTO Martinez([facility]) Admitting Provider: Logan Mendiola MD Attending Provider on Admission: Yunier Nichols MD Consults: 09/21/25 16:19 Consult to Nephrology Routine Comment: hyperkalemia, hyponatremia, STEPH Consulting Provider: Ronal Suarez Referral Registered Dietitian Routine Comment: see instructions Instructions: CPN: Clinimix D20% AA5% at 65 ml/hr x 24 hrs with 500 ml 20% lipid 3 times a week (Mon-Wed-Fri). Start at 35 ml/hr for 12 hrs, then advance to goal of 65 ml/hr. 1560 ml volume, 78 g AA, 312 g dextrose, 1802 total calories, NPC 1490. GIR=3.6 / LIR=0.5 MVI w/ minerals QD, folate 1mg if not in MVI, B12 500-1000 mcg QD, D3 5449-0951 IU QD, Zinc sulfate 220mg QD for 14 days. PN order was delivered to Pharmacy. 09/21/25 19:45 Referral Wound Care Routine Comment: MASD-ileostomy site; skin break down 09/25/25 18:27 Consult to General Surgery Routine Comment: Consulting Provider: Riky Sánchez Attending Provider on DC: Melody Maier DO Discharging Provider: Dimas Persaud DO Anticipated date of discharge: 10/01/25 DS: Diagnosis Problem List Completed Was Problem List Reviewed/Reconciled?: Yes Hospital Course Hospital Course Hospital course: Mrs. Washington is a Tuvaluan speaking, 65F with history of prediabetes and invasiv e adenocarcinoma of the ascending colon s/p right hemicolectomy with ileotransverse colostomy on 07/21/25 presented from SNF for asymtpomatic hyperkelemia and hyponatremia, likely from short gut syndrome. In the ED, she was found to have low sodium of 117 and elevated potassium of 5.7. She was given 1000 mg of calcium gluconate IV, 1 amp of D50 IV, 5 units of regular insulin IV and 10 mg of continuous nebulized albuterol for the hyperkalemia. She also received 1L fluid bolus for her STEPH. Nephrology was consulted, recommended adding Bicitra and salt tablet to her medication regimen. She was started on continuous maintenance fluid with close monitoring of her Na level to correct her hyponatremia. Upon chart reviews, patient had lost significant weight over the course of past few months, concerning for high ileostomy output due to short gut syndrome. Her Marinol dose was increased to help stimulate her appetite to increase nutritional intake. Banatrol plus packet was added to patient's diet to help increase nutrient absorption. A discussion was held with the cartridge gauger, despite patient's continuous effort to have increased oral intake, she remained unable to meet her nutrition goal. On 09/24/25, patient was started on PPN to meet her nutritional demand. Her Na level remained stable throughout the rest of this admission. On 09/29/25, a PICC line was inserted for long-term TPN, as this is the best option to keep patient from recurrent admissions. The hospitalist team spoke with Dr. Suggs at bedside, suggested given patient's complicated surgical history, it is not advisable to pursue with ileostomy reversal due to significant morbidity and mortality. However, once patient's nutritional status improve, it was recommended for her to seek a second opinion from [facility]iary [facility] center. Since patient will likely require TPN without a definite end date, she does not qualify to be placed at a nursing facility. Family voiced their concerns that they would not be able to take care of the patient at home. We had a face to face discussion with family members, explaining patient's only option is home with home health nurse as we had exhausted all possible options. Family amendable to plan of discharge, and was educated on wound care and ileostomy bag change. At this time, patient is medically and physically stable for discharge for home with PICC line and TPN. All questions and concerns addressed, plan of care discussed with patient, return precautions given. Diagnosis: #Short gut syndrome #High ileostomy output #Hx of invasive adenocarcinoma of the ascending colon s/p right hemicolectomy with ileotransverse colostomy (07/21/25) #Calorie protein Malnutrition #Pre-renal STEPH likely secondary to dehydration from high ileostomy output - resolved #Eletroclyte abnormalities #Hyperkelemia - resolved #Hyponatremia - improving #Hyperphosphatemia - resolved #Anion gap metabolic acidosis - resolved Discharge Plan: Follow up with primary care physician within 1 week of discharge Instructions have been explained to the patient with regards to their medications and how to take them. Patient was able to explain back to physician and nursing staff how to take their medications. Patient expressed understanding with instructions. Follow-up with oncology within 1-2 weeks of discharge. New Medications: Dronabinol 2.5mg BID Sodium tablets 1g twice a day Bicitra 650mg twice a day TPN orders: Clinimix D20% AA5% at 65 ml/hr x 24 hrs with 500 ml 20% lipid 3 times a week ( Mon-Wed-Fri). Start at 35 ml/hr for 12 hrs, then advance to goal of 65 ml/hr. 1560 ml volume, 78 g AA, 312 g dextrose, 1802 total calories, NPC 1490. GIR=3.6 / LIR=0.5 MVI w/ minerals QD, folate 1mg if not in MVI, B12 500-1000 mcg QD, D3 5479-6269 IU QD, Zinc sulfate 220mg QD for 14 days. Continue to take the rest of your medications as prescribed by your primary care physician. Patient has been explained that should any symptoms recur or worsen patient is instructed to return to the Emergency Department. Case discussed with my senior resident Dr. Delong Case discussed with my attending Dr. Livier Persaud, PGY 1 Status at Discharge Overall status at discharge: patient is back to baseline Time Spent with Patient Time attestation: Total time spent providing and/or coordinating discharge services: Time spent: Greater than 30 minutes Home Health Home Health Referral Orders: 09/30/25 09:33 Home Health Referral Routine Reason For Exam: TPN Home-Bound The patient must either because of illness or injury, need the aid of supportive devices such as crutches, canes, wheelchairs, and walkers; the use of special transport ation; or the assistance of another person in order to leave their place of residence; OR have a condition such that leaving his or her home is medically contraindicated. In addition, the patient also meets the following criteria: patient is normally unable to leave the home and leaving home requires considerable taxing effort. Addendum to Home Health Certification Practitioner's Certification: I certify that the patient has been under my care in the hospital and the care of attending physician (see below). We had a [id number] encounter on (see date below). My clinical findings indicate that the patient is home bound per the above criteria and the Home Health Services noted in these orders are medically necessary. The primary reason for the [id number] encounter is related to the fact that the patient requires home health services. Date Certifying [id number]-pt-[id number] Physician Encounter: 09/21/25 Physician's Name who will Assume Oversight for Services: Ary CEBALLOS) Physician's Phone No.who will Assume Oversight for Service: ENGRAVING SUPERVISOR - Community Resources: Yes PT to Evaluate: No PT to evaluate and provide a treatmnet plan to increase patient's mobility and strength. Wound Care: No Home Health RN - Wound Care Order: CPN: Clinimix D20% AA5% at 65 ml/hr x 24 hrs with 500 ml 20% lipid 3 times a week (Sat-Sat-Sat). Start at 35 ml/hr for 12 hrs, then advance to goal of 65 ml/hr. 1560 ml volume, 78 g AA, 312 g dextrose, 1802 total calories, NPC 1490. GIR=3.6 / LIR=0.5 MVI w/ minerals QD, folate 1mg if not in MVI, B12 500-1000 mcg QD, D3 4616-8435 IU QD, Zinc sulfate 220mg QD for 14 days. PN order was delivered to Pharmacy. IV Therapy: Yes: CPN: Clinimix D20% AA5% at 65 ml/hr x 24 hrs with 500 ml 20% lipid 3 times IV Medication: Clinimix IV Dose: see above IV Frequency: see above IV Stop Date: 10/14/2089 Discontinue PICC Line Once Treatment Complete: No RN Safety Evaluation: Yes RN to evaluate and create a plan of care that will produce positive outcomes. Palliative Treatment: No Palliative treatment and evaluate the need for hospice. Home Health Aide - Personal Care: No Home Health Aide to assist with any ADL's. Exam Vital Signs Temp Pulse Resp BP Pulse Ox O2 Del Method O2 Flow Rate 97.9 F 75 18 107/64 98 Room Air 2 10/01/25 08:00 10/01/25 08:00 10/01/25 08:00 10/01/25 08:00 10/01/25 08:00 10/01/25 04:00 09/29/25 15:30 Narrative Exam General: Alert, oriented, in no acute distress. HEENT: Normocephalic, atraumatic. Extraocular movements intact. No cervical lymphadenopathy. Neck: Supple, no JVD, no lymphadenopathy or thyroid enlargement. Cardiovascular: Regular rate and rhythm. No murmurs, rubs, or gallops. Peripheral pulses 2+ and symmetric. Respiratory: Clear to auscultation bilaterally. No wheezes, rales, or rhonchi. Normal respiratory effort. Abdomen: Soft, nontender, nondistended. Bowel sounds normal. No masses or organomegaly. Ileostomy bag intact. Musculoskeletal: Full range of motion in all extremities. No joint swelling, tenderness, or deformities. Skin: Warm, dry, intact. No rashes or lesions. Erythema around ileostomy site, no drainage or signs of infection. Psychiatric: Calm, cooperative, appropriate mood and affect. Discharge Plan Plan Patient Disposition: Home w/HOME HEALTH Patient condition on transfer: Stable Care Plan Goals: Follow up with primary care physician within 1 week of discharge Instructions have been explained to the patient with regards to their medications and how to take them. Patient was able to explain back to physician and nursing staff how to take their medications. Patient expressed understanding with instructions. Follow-up with oncology within 1-2 weeks of discharge. New Medications: Dronabinol 2.5mg BID Sodium tablets 1g twice a day Bicitra 650mg twice a day TPN orders: Clinimix D20% AA5% at 65 ml/hr x 24 hrs with 500 ml 20% lipid 3 times a week (Mon-Wed-Fri). Start at 35 ml/hr for 12 hrs, then advance to goal of 65 ml/hr. 1560 ml volume, 78 g AA, 312 g dextrose, 1802 total calories, NPC 1490. GIR=3.6 / LIR=0.5 MVI w/ minerals QD, folate 1mg if not in MVI, B12 500-1000 mcg QD, D3 9269-6206 IU QD, Zinc sulfate 220mg QD for 14 days. Continue to take the rest of your medications as prescribed by your primary care physician. Patient has been explained that should any symptoms recur or worsen patient is instructed to return to the Emergency Department. Prescriptions/Referrals Prescriptions/Med Rec: New dronabinol 2.5 mg Capsule 5 mg PO BID 30 Days Qty: 120 0RF sodium chloride 1,000 mg tablet,soluble 1,000 mg PO BID 30 Days Qty: 60 0RF sodium citrate-citric acid [Oracit] 490-640 mg/5 mL solution 7.5 ml PO BID Qty: 473 0RF Rx Instructions: administer with a meal and dilute/mix in a full glass of water Continued multivitamin Tablet 1 tab PO QDAY Qty: 30 0RF acetaminophen 325 mg capsule 650 mg PO Q6H PRN (Reason: pain(scale 1-6)) famotidine 20 mg Tablet 20 mg PO QDAY Qty: 30 0RF folic acid 1 mg tablet 1 mg PO QDAY thiamine HCl (vitamin B1) 100 mg tablet 100 mg PO QDAY cyanocobalamin (vitamin B-12) [Vitamin B-12] 250 mcg tablet 250 mcg PO QDAY Rx Instructions: 0.25mg zinc sulfate 220 mg capsule 220 mg PO DAILY cholecalciferol (vitamin D3) 25 mcg (1,000 unit) tablet 25 mcg PO QDAY hydromorphone [Dilaudid] 2 mg tablet 2 mg PO Q4H PRN (Reason: pain 4-10) Patient Comments: Not exceed 6mg in 24 hours. Rx Instructions: Pain scale 4-10 nystatin [Nystop] 100,000 unit/gram powder 1 applic topical BID Rx Instructions: Apply to groin, abdominal fold, and coccyx topically every day and mail list processor for 14 days. Started 09/13/2025 mirtazapine 15 mg tablet 15 mg PO QDAY ondansetron 4 mg tablet,disintegrating 4 mg PO Q8H PRN (Reason: nausea and vomiting) Patient Comments: DISSOLVE 1 TABLET ON THE TONGUE EVERY 6 HOURS NEEDED FOR NAUSEA OR VOMITING magnesium hydroxide [Milk of Magnesia] 400 mg/5 mL suspension 400 mg PO Q72H PRN (Reason: constipation) Rx Instructions: Give 30mL by mouth every 72 hours as needed for constipation. No BM for 3 days Held sennosides [senna] 8.6 mg tablet 8.6 mg PO QDAY Hold Instructions: Resume on 09/23/25. Hold until you see your PCP bisacodyl [Dulcolax (bisacodyl)] 10 mg suppository 10 mg RI Q84H PRN (Reason: constipation) Hold Instructions: Resume on 09/23/25. Hold until you see your PCP Patient Comments: To be administered the following shift if MOM is ineffective. Enema 19-7 gram/118 mL enema 118 ml RI Q96H PRN (Reason: constipation) Hold Instructions: Resume on 09/23/25. Hold until you see your PCP Rx Instructions: To be administered the following shift if Dulcolax suppository is ineffective. Notify MD if no result. Discontinued sodium chloride 1 gram tablet 1,000 mg PO BID ophthalmic irrigation solution Drops 2 drp ophthalmic (eye) Q2H PRN (Reason: dryness/itchy eyes) Referrals: Ary Short FNP ([facility]) [Primary Care Provider] Patient/Caregiver Discharge Instructions Other Discharge Activity Instructions:: Follow up with primary care physician within 1 week of discharge Instructions have been explained to the patient with regards to their medications and how to take them. Patient was able to explain back to physician and nursing staff how to take their medications. Patient expressed understanding with instructions. New Medications: Dronabinol 2.5mg BID Sodium tablets 1g twice a day Bicitra 650mg twice a day TPN orders: Clinimix D20% AA5% at 65 ml/hr x 24 hrs with 500 ml 20% lipid 3 times a week (Sat-Wed-Sat). Start at 35 ml/hr for 12 hrs, then advance to goal of 65 ml/hr. 1560 ml volume, 78 g AA, 312 g dextrose, 1802 total calories, NPC 1490. GIR=3.6 / LIR=0.5 MVI w/ minerals QD, folate 1mg if not in MVI, B12 500-1000 mcg QD, D3 4784-4328 IU QD, Zinc sulfate 220mg QD for 14 days. Ostomy Care and Pouch Change- Change 1-2 times per week and as needed for leaking Instruction video (supplies may vary slightly) [email or web address] Supplies: ?Suction if available ?Ostomy pouch and wafer (Amira New Image 70mm Lock ?n Roll Kit) ?Stoma adhesive paste (Convatec Stomahesive) ?Stoma adhesive strips (Eakins Cohesive stoma wrap and/or [place] Adapt Ostomy Barrier Ring) ?Stoma Powder (Convatec Stomahesive protectant powder) ?Vashe Wound Solution or Hypoclorus acid wound cleanser ?Scissors and tweezers ?Adhesive Remover [place] (ConvaTe Essenta) ?Tegaderm (clear dressing) or ?Skin prep pads ?Gauze ?Wet warm wash cloths ?Trash bag Prepare all supplies prior to pouch change. Once prepared, warm adhesive in warm towel or under your arm to help with adherence to the skin. Have patient lay flat. 1.Cut wafer to 2cm round 2.Cut stoma adhesive into 1cm strips 3.Open stoma paste and powder with lids off 4.Wet wash cloths with warm water, have some dry as well. 5.Open gauze pack, moistened half with Vashe wound cleanser the other half dry 6.Set up suction if available. Once all supplies set up, have patient lay flat on back with towels or washcloths around pouch to catch contents 7.Remove old pouch and gently cleanse surrounding skin removing all adhesive as possible 8.Apply Vashe moistened gauze around and over stoma to cleanse skin, if possible soak for 2-5minutes than cleanse and dry well. 9.Apply skin prep to all skin around stoma 10.Apply adhesive strips to intact skin approx. 1cm back from open skin and press lightly for adherence. Apply double layer of strip in skin folds and press down to stick. 11.Apply thin layer of stoma paste on the inside and outside of the strip. 12.Layer wafer making sure edges of wafer are close to the middle of initial strips. Pressing down to seal edge. 13.Apply Stoma paste to inside edge again 14.Layer inside edge with another layer of adhesive strips, pressing down edges to seal. 15.Apply another layer of stoma paste to edges. 16.Generously apply stoma powder (Safe to apply over stoma), rubbing into creases to help with seal. 17.Apply bag making sure it clicks into place all the way around 18.Peel of paper handles and seal creases with paste 19.Apply tegaderm to outer edges of wafer. Avoid excessive activity for approx. 20 minutes after application to allow for seal to set in and dry. You?re done! Great job. This is not easy and you are much needed to care for your loved one. Please take your time so you are not rushed. Over time will become easier. Monitor for s/s of infection around stoma If active bleeding occurs, apply tight dressing and return to MD or ER. ?Notify primary doctor or return to Emergency Room if any of the following: ?Fever above 100.6? F. ?Increased pain ?Increase swelling ?Red streaks around your wound ?Drainage becomes foul smelling or changes color ?The wound is larger or deeper ?The wound looks dried out or dark ?Bleeding that does not stop with holding pressure Continue to take the rest of your medications as prescribed by your primary care physician. Patient has been explained that should any symptoms recur or worsen patient is instructed to return to the Emergency Department. Education Materials: Ileostomy: Caring For Your Stoma, Ileostomy: Changing Your Pouch, Ileostomy Dealing with a Food ..., Ileostomy: Nutritional Management Print Language: Tuvaluan Stand Alone Forms: Brittani Award Info., Patient Portal Info Letter Discharge Order Discharge Orders: Discharge (Routine); Ordered 10/01/25 Ordered By: Jonathan Purvis Quality Discharge Quality Measures none
--- NOTE | 2025-10-01 10:10 | PC.WOUND ---
Addendum entered by Ysabel Mantilla RN 10/01/25 12:02: 1035- Call back received from ying Nichole. He is unable to come to bedside for discharge education. Reviewed discharge instructions, ostomy care/pouching application steps including: emptying, monitoring stoma appearance and output, skin care, s/s of infection to stoma or jenniffer stomal skin. Directed to online video website of sandwiching technique. Encouraged to return to ED if any s/s of infection or complications with stoma. Supplies x 3 pouch changes including: stoma paste, powder, adhesive remover, barrier strips, Vashe cleanser, gauze, pouching kits, tegaderms to be sent with patient by EMS. Hospital extension given to assist with questions/concerns on pouching. Encouraged to follow up with [employer] to assist with pouching needs- . All questions and concerns addressed. Kathleen KNIGHT updated. Original Note: Multiple attempts and voicemails left to connect with ying Nichole [phone] prior to discharge. Per Venecia S/S and Mily KNIGHT plan for discharge home by ambulance at 1200 to meet up with home health approx 1300 in [place] to [facility]. Son not available to come to bedside. Ostomy pouching care supplies x 3 changes left at bedside, step by step directions in discharge instructions. Kathleen KNIGHT reviewed with patient, she is able to empty pouching system adequately. Previously have taught ying Nichole and daughter in law Shirin pouching change. Will await sons return call.
--- NOTE | 2025-10-01 13:37 | PC.CC ---
dc summary, instructions, and picc line report sent to [facility] and [facility]
--- NOTE | 2025-10-08 08:08 | PC.CC ---
[Late Entry 10/05/25] Request from [facility] [place], to follow up on 3 discharge medications not covered by insurance at pharmacy. Per [facility] POS, patient has [employer] MPD but card is not on file. Dronabinol use is off-label, requires PA. NaCl and Oracit prescriptions not transmitted to pharmacy. Alternative strength of sodium citrate-citric acid covered by [facility]. S/W [facility] who advised they do not have [employer] billing information and are unable to search for it. 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 10/06/25 - Called [employer] MPD and obtained ID [id number] BIN [id number] Group [id number] PCN [id number]. S/W Dr. Adhikari and requested dronabinol be re-sent as 5mg capsules. PA submitted for dronabinol - approved through 10/06/26. S/W Dr. Mccall and requested NaCl be re-sent to pharmacy and Rx alternative strength sodium citrate-citric acid 500-334. Updated [facility] who received approved claim for dronabinol. S/W son, Manual to provide update. Per Manual, he has a prior Rx of NaCl that was covered by patient's [employer]. Per Manual, he is missing several vitamin supplements on patient's home med list. Upon review, meds were continued upon discharge. Recommended Manual to seek refills from PCP and/or obtain them OTC at this time. No additional needs. 10/08/25 - Updated RAFTER CUTTING MACHINE OPERATOR.
== END 2025-10-01 12:05 | disposition home health service (06) | DRG 683 ==
LOC: SERX 14:11 → SERHOLD 15:26 → S2NX 18:34 → S3SX 09-23 12:01
PROVIDERS: Admitting Provider Student in an Organized Health Care Education/Training Program; Emergency Provider Emergency Medicine; PCP Nurse Practitioner Primary Care; Visit Provider Internal Medicine
DX: N17.9 Acute kidney failure, unspecified (principal); E46 Unspecified protein-calorie malnutrition; E87.1 Hypo-osmolality and hyponatremia; E87.20 Acidosis, unspecified; N39.0 Urinary tract infection, site not specified; K94.13 Enterostomy malfunction; E11.9 Type 2 diabetes mellitus without complications; E87.5 Hyperkalemia; E86.0 Dehydration; D64.9 Anemia, unspecified; E83.52 Hypercalcemia; K91.1 Postgastric surgery syndromes; R74.8 Abnormal levels of other serum enzymes; F32.A Depression, unspecified; I95.9 Hypotension, unspecified; E83.39 Other disorders of phosphorus metabolism; E86.1 Hypovolemia; Z85.038 Personal history of other malignant neoplasm of large intestine; Z90.49 Acquired absence of other specified parts of digestive tract
CPT/HCPCS: 36415; 80048; 80053; 80061; 80069; 83036; 83605; 83690; 83735; 84100; 84132; 84295; 85025; 87081; 93225; 94644; 96365; 96375; 99284; A4649; C1751; C1894; J0612; J0613; J1642; J1644; J1815; J2470; J2597; J3010; J3411; J3475; J3490; J7030; J7050; J7070; J7120; J7131; J7602; J7999; Q0167; A9270; J7611

== ENCOUNTER → 2025-10-06 | Outpatient (CLI) | payer MEDICARE, MEDICAID, SELFPAY ==
[2025-10-06 16:20] LABS: Basophils # (Auto) 0.1 Thou/mm3 (0.0-0.2); Basophils % (Auto) 1 % (0-2.5); Eosinophils # (Auto) 0.5 Thou/mm3 (0.0-0.5); Eosinophils % (Auto) 6 % (0-10); Hematocrit 31.4 % (36.0-46.0); Hemoglobin 10.1 g/dL (12.0-16.0); Immature Granulocytes Auto 0.10 Thou/mm3 (0.00-0.00); Lymphocytes # (Auto) 1.9 Thou/mm3 (1.0-4.8); Lymphocytes % (Auto) 24 % (10-50); Mean Corpuscular HGB Conc 32.2 g/dl (31.0-37.0); Mean Corpuscular Hemoglobin 29.0 pg (25.0-35.0); Mean Corpuscular Volume 90 fL (80-100); Monocytes # (Auto) 0.6 Thou/mm3 (0.0-0.8); Monocytes % (Auto) 7 % (0-12); Neutrophils # (Auto) 5.1 Thou/mm3 (1.8-7.7); Neutrophils % (Auto) 62 % (37-80); Nucleated Red Blood Cell # 0.00 Thou/mm3 (0.00-0.00); Nucleated Red Blood Cell % 0 /100 WBC (0); Platelet Count 339 Thou/mm3 (140-440); RDW Standard Deviation 48.5 fL (36.4-46.3); Red Blood Count 3.48 Miln/mm3 (4.00-5.20); White Blood Count 8.2 Thou/mm3 (3.6-11.0)
[2025-10-06 16:36] LABS: Alanine Aminotransferase 16 U/L (10-49); Albumin, Serum 4.0 gm/dL (3.4-4.8); Albumin/Globulin Ratio 1.4 (1.2-2.2); Alkaline Phosphatase 242 U/L (46-116); Anion Gap 12 (7-16); Aspartate Amino Transferase 26 U/L (0-34); BUN/Creatinine Ratio 43 Ratio (12-20); Bilirubin,Total 0.3 mg/dL (0.3-1.2); Blood Urea Nitrogen 26 mg/dL (9-23); Calcium 9.3 mg/dL (8.3-10.6); Calcium (Corrected) 9.3 mg/dL (8.5-10.1); Carbon Dioxide 23.1 mMol/L (20.0-31.0); Chloride 106 mMol/L (98-107); Creatinine (Component) 0.6 mg/dL (0.6-1.3); Globulin 2.9 gm/dL (2.3-3.5); Glucose 97 mg/dL (74-106); Magnesium 1.6 mg/dL (1.6-2.6); Osmolality,Calculated 285 (275-295); Phosphorous 4.5 mg/dL (2.4-5.1); Potassium 4.9 mMol/L (3.4-5.1); Sodium 141 mMol/L (136-145); Total Protein 6.9 gm/dL (5.7-8.2); eGFR > 60 See Note
[2025-10-14 17:49] LABS: Albumin 3.2 g/dL (3.8-4.8); Alpha-1-Globulin 0.3 g/dL (0.2-0.3); Alpha-2-Globulin 0.7 g/dL (0.5-0.9); Beta-1-Globulin 0.6 g/dL (0.4-0.6); Beta-2-globulin 0.5 g/dL (0.2-0.5); Gamma Globulin 1.2 g/dL (0.8-1.7)
[2025-10-18 07:26] LABS: Protein, total, serum 6.6 g/dL (6.1-8.1)
== END | disposition home or self-care (01) ==
LOC: SLDO 15:44
PROVIDERS: PCP Hospitalist; Referring Provider Hospitalist; Visit Provider Hospitalist
DX: E40 Kwashiorkor (principal)
CPT/HCPCS: 36415; 80053; 83735; 84100; 84155; 84165; 85025